=== PATIENT | male | born 1965 ===

== ENCOUNTER 2020-01-25 11:48 | Inpatient (IN) | payer BC, OTHER ==
[2020-01-25] VITALS (13 sets, daily range): BP systolic 85–178; BP diastolic 54–101
[~2020-01-25] VITALS: Ht 180 cm; Wt 85.0 kg
[~2020-01-25 11:48] MED LIST: ATROPINE INJECTION 1 MG/10 ML SYR (ABBOTT) INJ ONE; EPINEPHrine 0.1 MG/ML 10 ML (HOSPIRA) SYR IJ ONE
--- NOTE | 2020-01-25 11:55 | NUR ---
PT ARRIVED PER EMS, PT IS RESP DISTRESS, PT DOES NOT SPEAK NIGERIEN, TRANSLATION LINE USED TO EXPLAIN TO PT THAT HE WAS GOING TO NEED TO BE INTUBATED D/T DECLINING RESP FAILURE. PT IS IN AGREEMENT. 1209 ETOMADATE 20MG IV GIVEN ORDERED 1209 SUCCS 100MG GIVEN IV ORDERED. SAT 94%@15L NRB 1210 PT ENTUBATED W #8 ET TUBE BY Leroy NASSAR. 22CM AT TEETH. TUBE PLACEMENT CHECKES. 1213 PROPAOL 40MG IV PUSH BY Leroy NASSAR 1214 PROPAFOL 50MG IV PUSHED BY Leroy NASSAR 1215 VERSED 5MG IV PUSH GIVEN ORDERED 1216 FENTANYL 100MCG GIVEN ORDERED
[2020-01-25] MEDS ORDERED: proPOfol 200 MG/20 ML (DIPRIVAN) VIAL IV ONE (12:10)
[2020-01-25] MEDS ORDERED: PROPOFOL DRIP (ICU) 100 ML IV ONE ×2 (12:13→14:19)
--- NOTE | 2020-01-25 12:18 | NUR ---
NOTES ON PT CONT 1218 FENTANLY 100MCG GIVEN ORDERED. IV #18 R AC STARTED. ROCC 50MG IV GIVEN 1219 OG 16FR INSERTED 1220 PROPOFOL 60MCG/KG/MIN= 39.6ML/HR STARTED 1228 16FR GOOD CATH INSERTED CL DARYA URINE RETURN 1230 2ND BC COMPLETE 1237 SUCTIONED BY RT 1239 ET TUBE MOVED TO 24@LIP 1234 MEPILEX DRESSINGS APPLIED PER GUIDELINES 1246 DECADRON 10MG IV GIVEN ORDERED 1255 PT TO PRONE POSITION O2 SAT UP TO 98% ON VENT 1256 LABETALOL 20MG IV GIVEN ORDERED 1327 PT STARTING TO MOVE FENTANLY 100MCG GIVEN IV VSS P-105 O2-95%ON VENT-104/72 1350 PT WAKING UP, PT GIVEN 5MG VERSED IV AND 100MCG FENTANLY. PROPOFOL INCREASED TO 70MCG/KG/MIN FOR SEDATION. 1402 B/P 80/54-101 SAT 92% ON VENT. NEW ORDERS RECIEVED DECREASE PROPOFOL TO 60MCG/KG/MIN. IV FLUIDS BOLUS 500CC 1406 B/P 91/61-101-92% 1423 PT STARTING TO MOVE AROUND, VERSED 5MG IV GIVEN, FENTANLY 100MCG GIVEN IV P-100 SAT 94% B/P 90/64, MEDICAL RECORDS ASSISTANT HERE TO TRANSFER PT 1430 PT SATS DECREASING 75% 1436 PT CONT TO MOVE, ROCC 50MG GIVEN IV 1437 DR KIM NOTIFIED OF PT DECLINING STATUS, DR SAUNDERS AT SIDE. VERSED 5MG IV GIVEN 1438 PT MOVED TO SUPINE BY STAFF 1439 NO PULSE CPR STARTED, ATROPINE 1 AMP AND EPI 1 AMP GIVEN IV 1441 PULSE CHECK NO PULSE PEA. EPI 1 AMP, ATROPINE 1 AMP GIVEN IV 1443 PULSE CHECK ROSC HR-160 SAT 96% BP 118/116 1450 HR 163 SAT 96% B/P 182/116 1453 PT TO ICU PER BED, VS ABOVE. GOOD INTACT, PT BAGGED BY RT, PROPOFOL CONT AT 60MCG/KG/MIN. IV INTACT BILATERALLY. OG IN PLACE.
[2020-01-25] MEDS ORDERED: PROPOFOL DRIP (ICU) 100 ML IV SCH (12:30)
[2020-01-25 12:36] LABS: ABG BASE EXCESS -1.7 MMOL/L (-2.5-2.5); ABG OXYGEN SATURATION 91 % (94-100); ABG PCO2 30 MMHG (35-45); ABG PH 7.47 (7.37-7.43); ABG PO2 69 MMHG (79-93); ABG TCO2 22.2 MMOL/L (21.0-31.0); ALLENS TEST YES-POS; INSPIRED O2 15; PATIENT TEMP 99.6; VENTILATOR NO
--- NOTE | 2020-01-25 12:37 | ED Dyspnea ---
General Stated Complaint: SOA Source of Information: Patient, EMS Exam Limitations: No Limitations History of Present Illness Date Seen by Provider: Jan 25, 2020 Time Seen by Provider: 11:50 Initial Comments to ER by EMS from home with reports of shortness of breath. He is employed at [employer]. He was tested positive for COVID last Wednesday (today is ).he became short of breath about 2-3 days ago. Former smoker but quit 3 years ago. He smoked about 2-3 cigarettes per day. Former alcohol use but quit in 1994. Does not have primary care provider. Takes no medications. Has no allergies. Has no surgical history. Translation line was used to obtain this information. Timing/Duration: 1 Week Severity: Moderate Activities at Onset: None Modifying Factors: Improves With Coughing Allergies and Home Medications Allergies Coded Allergies: No Known Drug Allergies (Unverified , 01/25/20) Patient Home Medication List Home Medication List Reviewed: Yes Review of Systems Review of Systems Constitutional: see HPI EENTM: see HPI Respiratory: see HPI, cough, short of breath Cardiovascular: no symptoms reported Genitourinary: no symptoms reported Musculoskeletal: no symptoms reported Skin: no symptoms reported Psychiatric/Neurological: No Symptoms Reported Endocrine: No Symptoms Reported Physical Exam Vital Signs Vital Signs - First Documented 01/25/20 12:20 Pulse 113 B/P (MAP) 141/107 Capillary Refill : Height, Weight, BMI Height: '" Weight: lbs. oz. kg; BMI Method: General Appearance: WD/WN, Severe Distress, Other (tachypneic with respiratory rate of 40-60. Oxygen saturation of 87-91% on 15 L nonrebreather) HEENT: PERRL/EOMI, TMs Normal Respiratory: Decreased Breath Sounds, Respiratory Distress Cardiovascular: Normal Peripheral Pulses, Tachycardia Gastrointestinal: Normal Bowel Sounds, Non Tender, Soft Extremity: Normal Capillary Refill, Normal Inspection Neurologic/Psychiatric: Alert, Oriented x3 Skin: Normal Color, Warm/Dry Focused Exam Lactate Level 01/25/20 12:45: Lactic Acid Level 1.28 Lactic Acid Level Laboratory Tests Test 01/25/20 12:45 Lactic Acid Level 1.28 MMOL/L (0.50-2.00) Procedures/Interventions Date of ETT Placement: Jan 25, 2020 Time of ETT Placement: 12:10 Intubation Method: orotracheal Tube Size: 8 Medications: Etomidate, Succinylcholine Positive End Tide CO2: Yes Breath Sounds after Intubation: bilateral-equal Intubation Complications: no complications Post Intubation Xray: Yes Progress/Results/Core Measures Results/Orders Lab Results Laboratory Tests Test 01/25/20 12:00 01/25/20 12:28 01/25/20 12:45 Range/Units White Blood Count 15.3 H 4.3-11.0 10^3/uL Red Blood Count 4.49 4.35-5.85 10^6/uL Hemoglobin 13.6 13.3-17.7 G/DL Hematocrit 40 40-54 % Mean Corpuscular Volume 89 80-99 FL Mean Corpuscular Hemoglobin 30 25-34 PG Mean Corpuscular Hemoglobin Concent 34 32-36 G/DL Red Cell Distribution Width 13.4 10.0-14.5 % Platelet Count 331 130-400 10^3/uL Mean Platelet Volume 10.2 7.4-10.4 FL Neutrophils (%) (Auto) 86 H 42-75 % Lymphocytes (%) (Auto) 7 L 12-44 % Monocytes (%) (Auto) 6 0-12 % Eosinophils (%) (Auto) 1 0-10 % Basophils (%) (Auto) 0 0-10 % Neutrophils # (Auto) 13.1 H 1.8-7.8 X 10^3 Lymphocytes # (Auto) 1.1 1.0-4.0 X 10^3 Monocytes # (Auto) 0.9 0.0-1.0 X 10^3 Eosinophils # (Auto) 0.1 0.0-0.3 10^3/uL Basophils # (Auto) 0.0 0.0-0.1 10^3/uL Neutrophils % (Manual) 93 % Lymphocytes % (Manual) 4 % Monocytes % (Manual) 3 % Eosinophils % (Manual) 0 % Basophils % (Manual) 0 % Band Neutrophils 0 % Blood Morphology Comment NORMAL Prothrombin Time 16.6 H 12.2-14.7 SEC INR Comment 1.3 0.8-1.4 Activated Partial Thromboplast Time 34 24-35 SEC Blood Gas Puncture Site RT RAD Blood Gas Patient Temperature 99.6 Arterial Blood pH 7.47 H 7.37-7.43 Arterial Blood Partial Pressure CO2 30 L 35-45 MMHG Arterial Blood Partial Pressure O2 69 L 79-93 MMHG Arterial Blood HCO3 21 L 23-27 MMOL/L Arterial Blood Total CO2 22.2 21.0-31.0 MMOL/L Arterial Blood Oxygen Saturation 91 L 94-100 % Arterial Blood Base Excess -1.7 -2.5-2.5 MMOL/L Angelo Test YES-POS Blood Gas Ventilator Setting NO Blood Gas Inspired Oxygen 15 Sodium Level 138 135-145 MMOL/L Potassium Level 4.0 3.6-5.0 MMOL/L Chloride Level 105 98-107 MMOL/L Carbon Dioxide Level 21 21-32 MMOL/L Anion Gap 12 5-14 MMOL/L Blood Urea Nitrogen 19 H 7-18 MG/DL Creatinine 0.77 0.60-1.30 MG/DL Estimat Glomerular Filtration Rate > 60 BUN/Creatinine Ratio 25 Glucose Level 122 H 70-105 MG/DL Calcium Level 8.5 8.5-10.1 MG/DL Corrected Calcium 9.3 8.5-10.1 MG/DL Total Bilirubin 0.7 0.1-1.0 MG/DL Aspartate Amino Transf (AST/SGOT) 32 5-34 U/L Alanine Aminotransferase (ALT/SGPT) 30 0-55 U/L Alkaline Phosphatase 101 40-136 U/L Total Protein 6.9 6.4-8.2 GM/DL Albumin 3.0 L 3.2-4.5 GM/DL Triglycerides Level 129 <150 MG/DL Urine Color YELLOW Urine Clarity CLEAR Urine pH 7.0 5-9 Urine Specific [place] 1.025 H 1.016-1.022 Urine Protein 3+ H NEGATIVE Urine Glucose (UA) NEGATIVE NEGATIVE Urine Ketones 1+ H NEGATIVE Urine Nitrite NEGATIVE NEGATIVE Urine Bilirubin NEGATIVE NEGATIVE Urine Urobilinogen >=8.0 < = 1.0 MG/DL Urine Leukocyte Esterase NEGATIVE NEGATIVE Urine RBC (Auto) 2+ H NEGATIVE Urine RBC 2-5 H /HPF Urine WBC NONE /HPF Urine Squamous Epithelial Cells RARE /HPF Urine Crystals NONE /LPF Urine Bacteria NEGATIVE /HPF Urine Casts NONE /LPF Urine Mucus NEGATIVE /LPF Urine Culture Indicated NO Lactic Acid Level 1.28 0.50-2.00 MMOL/L C-Reactive Protein High Sensitivity 31.52 H 0.00-0.50 MG/DL My Orders Orders - SHANEKA MEDRANO APRN Cbc With Automated Diff (01/25/20 12:24) Comprehensive Metabolic Panel (01/25/20 12:24) Blood Culture (01/25/20 12:24) Sputum Culture (01/25/20 12:24) Urinalysis (01/25/20 12:24) Urine Culture (01/25/20 12:24) Protime With Inr (01/25/20 12:24) Partial Thromboplastin Time (01/25/20 12:24) Chest 1 View, Ap/Pa Only (01/25/20 12:24) Ed Iv/Invasive Line Start (01/25/20 12:24) Ed Iv/Invasive Line Start (01/25/20 12:24) Vital Signs Adult Sepsis Patie Q15M (01/25/20 12:24) O2 (01/25/20 12:24) Remove Rings In Anticipation O (01/25/20 12:24) Lactic Acid Analyzer (01/25/20 12:24) Arterial Blood Gas (01/25/20 12:24) Propofol Drip (Icu) (Diprivan Drip (Icu) (01/25/20 12:30) Triglycerides (01/25/20 12:24) Labetalol Injection (Normodyne Injection (01/25/20 12:45) Dexamethasone Injection (Decadron Inject (01/25/20 12:45) Piperacillin Sodium/Tazobactam (Zosyn Vi (01/25/20 12:45) Hs C Reactive Protein (01/25/20 12:44) Labetalol Injection (Normodyne Injection (01/25/20 12:42) Dexamethasone Injection (Decadron Inject (01/25/20 12:42) Manual Differential (01/25/20 12:00) Ns Iv 1000 Ml (Sodium Chloride 0.9%) (01/25/20 13:30) Medications Given in ED Current Medications Medications Dose Ordered Sig/Luann Route Start Time Stop Time Status Last Admin Dose Admin Dexamethasone Sodium Phosphate 10 mg ONCE ONCE IV 01/25/20 12:45 01/25/20 12:46 DC 01/25/20 12:46 10 MG Labetalol HCl 20 mg ONCE ONCE IV 01/25/20 12:45 01/25/20 12:46 DC 01/25/20 12:56 20 MG Piperacillin Sod/ Tazobactam Sod 4.5 gm/Sodium Chloride 100 ml @ 200 mls/hr ONCE ONCE IV 01/25/20 12:45 01/25/20 13:14 DC 01/25/20 13:10 200 MLS/HR Propofol 200 mg STK-MED ONCE IV 01/25/20 12:10 01/25/20 12:12 DC 01/25/20 12:13 40 MG Vital Signs/I&O 01/25/20 12:20 Pulse 113 B/P (MAP) 141/107 Critical Care Note Critical Care Start Time: 11:55 Stop Time: 12:42 Departure Communication (Admissions) Time/Spoke to Admitting Phy: 12:42 1239-he was intubated with a size 8 endotracheal tube initially at 22 cm at the teeth. After auscultation and temporarily on the ventilator as wasn't felt to be deep enough, we advanced to 24cm the lips and reinflated the balloon. Also, the advancement to 24 cm at the lips occurred after the initial chest x-ray.initial ventilator settings are tidal volume of 500 rate of 16 peep of 10 and 70% FiO2 and his SPO2 is only about 86-87%. As such we are placing Mepilex gizzard skin remover his anterior surface in preparation to prone him. Nasogastric tube has been inserted. He's been given additional dosages of propofol, fentanyl and Versed and 1 dose of rocuronium. 1256-after proning him his oxygen saturation increased from 86% to 98% without change ventilator settings 1309- Spoke with Dr. Renteria and Dr. Bae, will admit 1516-patient developed bradycardia with a rate down to the 30s as well as likely toxemia and hypotension. Was given 2 doses of epinephrine 2 doses of atropine and CPR for 4 minutes. There was no V. tach or V. fib or defibrillation. He regained pulse tachycardic at about 150 narrow complex. Blood pressure in the 80s. Transferred up to ICU, Dr. Renteria at bedside and will place a central line. Impression Primary Impression: Respiratory failure Additional Impression: covid 19 Disposition: 09 ADMITTED INPATIENT Condition: Critical Admissions Decision to Admit Reason: Admit from ER (General) Decision to Admit/Date: Jan 25, 2020 Time/Decision to Admit Time: 12:42 SHANEKA MEDRANO APRN Jan 25, 2020 12:37
[2020-01-25 12:41] LABS: INR 1.3 (0.8-1.4); PROTHROMBIN TIME PATIENT 16.6 SEC (12.2-14.7)
[2020-01-25 12:42] LABS: CHLORIDE 105 MMOL/L (98-107); SODIUM 138 MMOL/L (135-145)
[2020-01-25] MEDS ORDERED: LABETALOL HCL 20 MG/4 ML VIAL ONE (12:42)
[2020-01-25 12:43] LABS: CALCIUM 8.5 MG/DL (8.5-10.1)
[2020-01-25 12:44] LABS: GLUCOSE 122 MG/DL (70-105); TOTAL PROTEIN 6.9 GM/DL (6.4-8.2); TRIGLYCERIDES 129 MG/DL (<150)
[2020-01-25 12:45] LABS: CARBON DIOXIDE 21 MMOL/L (21-32)
[2020-01-25] MEDS ORDERED: PIPERACILLIN SODIUM/TAZOBACTAM 4.5 GM in NS (IVPB) 100 ML IV ONE (12:45)
[2020-01-25] MEDS ORDERED: LABETALOL HCL 20 MG/4 ML VIAL IV ONE (12:45)
[2020-01-25 12:46] LABS: BILIRUBIN,TOTAL 0.7 MG/DL (0.1-1.0)
[2020-01-25 12:47] LABS: ALKALINE PHOSPHATASE 101 U/L (40-136)
[2020-01-25 12:48] LABS: CREATININE SERUM 0.77 MG/DL (0.60-1.30); GFR ESTIMATED > 60
[2020-01-25 12:49] LABS: BASOPHILS % (AUTO) 0 % (0-10); BUN/CREATININE RATIO 25; EOSINOPHILS # (AUTO) 0.1 10^3/uL (0.0-0.3); EOSINOPHILS % (AUTO) 1 % (0-10); HEMATOCRIT 40 % (40-54); HEMOGLOBIN 13.6 G/DL (13.3-17.7); LYMPHOCYTES # (AUTO) 1.1 X 10^3 (1.0-4.0); LYMPHOCYTES % (AUTO) 7 % (12-44); MEAN CORPUSCULAR HEMOGLOBIN 30 PG (25-34); MEAN CORPUSCULAR HGB CONC 34 G/DL (32-36); MEAN CORPUSCULAR VOLUME 89 FL (80-99); MEAN PLATELET VOLUME 10.2 FL (7.4-10.4); MONOCYTES # (AUTO) 0.9 X 10^3 (0.0-1.0); MONOCYTES % (AUTO) 6 % (0-12); NEUTROPHILS # (AUTO) 13.1 X 10^3 (1.8-7.8); NEUTROPHILS % (AUTO) 86 % (42-75); PLATELET COUNT 331 10^3/uL (130-400); RED CELL DISTRIBUTION WIDTH 13.4 % (10.0-14.5); WHITE BLOOD COUNT 15.3 10^3/uL (4.3-11.0)
[2020-01-25 12:51] LABS: ALANINE AMINOTRANSFERASE 30 U/L (0-55)
[2020-01-25 12:55] LABS: BILIRUBIN,URINE NEGATIVE (NEGATIVE); CLARITY,URINE CLEAR; COLOR,URINE YELLOW; GLUCOSE, URINE (UA) NEGATIVE (NEGATIVE); KETONES,URINE 1+ (NEGATIVE); LEUKOCYTE ESTERASE ,URINE NEGATIVE (NEGATIVE); NITRITE,URINE NEGATIVE (NEGATIVE); PROTEIN,URINE 3+ (NEGATIVE)
[2020-01-25 13:02] LABS: BACTERIA,URINE NEGATIVE /HPF; SQUAMOUS EPITHELIAL CELL,UR RARE /HPF
--- NOTE | 2020-01-25 13:05 | Diagnostic Imaging Report ---
INDICATION: Respiratory distress. FINDINGS: 2 frontal radiographs of the chest are performed. An ET tube is just above the thoracic inlet. It is about 9 cm above the chele and about 4 cm above its optimal mid thoracic tracheal positioning. There are severe 5 lobe airspace infiltrates and an OG catheter in the stomach. IMPRESSION: The ET tube is short just approaching the thoracic inlet about 4 cm from optimal positioning with severe 5 lobe airspace disease and an OG catheter in the stomach. Dictated by: Dictated on workstation # [id number]
[2020-01-25 13:08] LABS: BAND NEUTROPHILS 0 %; BASOPHILS % (MANUAL) 0 %; EOSINOPHILS % (MANUAL) 0 %; LYMPHOCYTES % (MANUAL) 4 %; MONOCYTES % (MANUAL) 3 %; NEUTROPHILS % (MANUAL) 93 %; RBC MORPH NORMAL
[2020-01-25] MEDS ORDERED: MIDAZOLAM 5 MG/5 ML (VERSED) VIAL ONE (14:18)
--- OUTSIDE RECORDS SUMMARY | 2020-01-25 14:19 | XMS REPORT | Continuity of Care Document ---
Author Organization Unknown Address Unknown Phone Unavailable Allergies There is no data. Medications There is no data. Problems There is no data. Procedures There is no data. Results There is no data. Encounters ACCT No. Visit Date/Time Discharge Status Pt. Type Provider Facility Loc./Unit Complaint [id number] 01/13/2020 12:00:00 01/13/2020 23:59: 59 CLS Outpatient [facility]
[2020-01-25] MEDS ORDERED: fentaNYL INJECTION 100 MCG/2 ML AMP ONE (14:20)
--- NOTE | 2020-01-25 14:23 | NUR ---
1159 B/P 178/101 HR 101 SAT 92% 15L NRB 1219 147/101 113 94 VENT 1229 163/115 133 86 RT DEEP SUCTIONED 1239 181/118 519 61 4395 104/72 539 50 5638 106/70 065 05 3329 108/62 507 19 5527 115/69 399 55 6272 80/54 754 73 7186 82/51 651 60 4969 91/61 742 00 8851 90/64 100 94 SWITCHED TO ICU MONITOR 1450 182/116 483 56 4711 PT TAKEN TO ICU BY ICU STAFF
[2020-01-25] MEDS ORDERED: MIDAZOLAM 5 MG/5 ML (VERSED) VIAL IJ ONE ×2 (14:32→16:23)
[2020-01-25] MEDS ORDERED: ROCURONIUM 10 MG/ML 5 ML SYRINGE IV ONE ×2 (14:32→16:23)
[2020-01-25] MEDS ORDERED: SUCCINYLCHOLINE INJ 100 MG/5 ML SYR INJ ONE (14:32)
[2020-01-25] MEDS ORDERED: fentaNYL INJECTION 100 MCG/2 ML AMP INJ ONE ×2 (14:32→16:23)
[2020-01-25] MEDS ORDERED: ETOMIDATE IV SOLN 20 MG/10 ML VIAL IV ONE (14:32)
[2020-01-25] MEDS ORDERED: NOREPINEPHRINE 4 MG/250 ML 250 ML IV ONE (14:56)
[2020-01-25] MEDS ORDERED: DexMEDEtomidine 250 ML DRIP 250 ML IV ONE (14:57)
[2020-01-25] MEDS: PROPOFOL DRIP (ICU) 100 ML IV SCH ×4 (15:00→22:59)
[2020-01-25] MEDS: NS IV 1000 ML 1,000 ML IV SCH ×4 (15:00→23:00)
--- NOTE | 2020-01-25 15:02 | Diagnostic Imaging Report ---
INDICATION: Respiratory failure. Portable chest at 02:46 p.m. FINDINGS: There is an ET tube projecting over the trachea. NG tube tip is near the thoracic inlet. There are diffuse alveolar infiltrates in the lungs. There are no effusions or pneumothoraces. IMPRESSION: Severe diffuse pulmonary infiltrates. ET tube projects over the trachea. NG tube tip appears to be at the thoracic inlet. Dictated by: Dictated on workstation # [id number]
[2020-01-25] MEDS ORDERED: LACTATED RINGERS 1,000 ML IV ONE (15:14)
[2020-01-25] MEDS: NOREPINEPHRINE 4 MG/250 ML 250 ML IV SCH ×2 (15:18→21:38)
[2020-01-25] MEDS: LACTATED RINGERS 1,000 ML IV SCH ×2 (15:20→21:32)
[2020-01-25] MEDS: DexMEDEtomidine 250 ML DRIP 250 ML IV SCH (15:21)
[2020-01-25 15:23] LABS: ABG OXYGEN SATURATION 95 % (94-100); ABG PO2 114 MMHG (79-93); ABG TCO2 24.3 MMOL/L (21.0-31.0)
[2020-01-25 15:26] LABS: ALLENS TEST YES-POS; INSPIRED O2 70%; PATIENT TEMP 37.1; VENTILATOR YES
[2020-01-25 15:29] LABS: ABG PCO2 71 MMHG (35-45); ABG PH 7.12 (7.37-7.43)
[2020-01-25] MEDS ORDERED: CATHETER FLUSH 10 ML SYR IV PRN (15:30)
[2020-01-25] MEDS: fentaNYL INJECTION 1,250 MCG in NS (IVPB) 250 ML IV SCH (15:39)
--- NOTE | 2020-01-25 15:41 | Pulmonary Consultation ---
History of Present Illness History of Present Illness Date Seen by Provider: Jan 25, 2020 Time Seen by Provider: 15:35 Date of Admission History of Present Illness 54yo who works at [employer] and is known COVID positive from Wednesday testing presented to ED secondary to worsening SOB over the last 3 days. He quit smoking 3 yrs ago. Pt continued to decline while in the ED and was intubated. After intubation pt became hypotensive and became bradycardic. He received epi and atropine and 1 round of chest compressions. He is now intubated and sedated in the ICU. He is still hypotesive on Levophed. He is getting another unit of LR. . Allergies and Home Medications Allergies Coded Allergies: No Known Drug Allergies (Unverified , 01/25/20) Review of Systems Time Seen by Provider: 16:02 Sepsis Event Evaluation Height, Weight, BMI Height: '" Weight: lbs. oz. kg; BMI Method: Exam Exam Vital Signs Date Time Temp Pulse Resp B/P (MAP) Pulse Ox O2 Delivery O2 Flow Rate FiO2 01/25/20 15:21 111 77/55 01/25/20 15:18 111 77/55 01/25/20 15:00 111 85/61 01/25/20 12:20 113 141/107 Height & Weight Height: '" Weight: lbs. oz. kg; BMI Method: General Appearance: WD/WN, Severe Distress, Other (tachypneic with respiratory rate of 40-60. Oxygen saturation of 87-91% on 15 L nonrebreather) HEENT: PERRL/EOMI, TMs Normal Respiratory: Decreased Breath Sounds, Respiratory Distress Cardiovascular: Normal Peripheral Pulses, Tachycardia Capillary Refill: Less Than 3 Seconds Gastrointestinal: normal bowel sounds, soft Extremity: Normal Capillary Refill, Normal Inspection Neurologic/Psychiatric: Other (sedated on vent) Skin: Normal Color, Warm/Dry Results Lab Laboratory Tests 01/25/20 12:00 Assessment/Plan Assessment/Plan Acute respiratory failure with ARDS -Change vent to 26/450/12 and continue to titrate Fi02 down. If unable to keep Sp02 <60% will increase PEEP. -Repeat ABG in 1 hr after vent changes -Prone x 14-16hours per day as tolerated -Conservative fluid management secondary to ARDS -Start Remdesivir. -I discussed with EICU and they agree with starting Remdesivir ADILIA. -Monitor liver function -Decadron -Add Zosyn secondary to possible aspiration/secondary infection -Lynne cultures -Repeat Labs including LA COVID + Hypotension -IVF with LR at 150 -Levophed gtt STEFANI FORDE DO Jan 25, 2020 15:41
[2020-01-25 15:54] LABS: AMPHETAMINE SCREEN, URINE NEGATIVE (NEGATIVE); BARBITURATE SCREEN URINE NEGATIVE (NEGATIVE); BENZODIAZEPINES SCREEN URINE NEGATIVE (NEGATIVE); CANNABINOID SCREEN, URINE NEGATIVE (NEGATIVE); COCAINE SCREEN URINE NEGATIVE (NEGATIVE); METHADONE STAT NEGATIVE (NEGATIVE); METHAMPHETAMINE SCREEN URINE S NEGATIVE (NEGATIVE); OPIATE SCREEN URINE NEGATIVE (NEGATIVE); OXYCODONE STAT NEGATIVE (NEGATIVE); PROPOXYPHENE STAT NEGATIVE (NEGATIVE); TRICYCLIC ANTIDEPRESSANTS SCRE NEGATIVE (NEGATIVE)
[2020-01-25] MEDS ORDERED: REMDESIVIR INJ (FREE STOCK) 200 MG in NS (IVPB) 210 ML IV NR (16:00)
[2020-01-25] MEDS ORDERED: PIPERACILLIN/TAZO 4.5 GM/NS 100 ML IV NR ×2 (16:00)
[2020-01-25 16:14] LABS: BASOPHILS % (AUTO) 0 % (0-10); EOSINOPHILS % (AUTO) 0 % (0-10); HEMATOCRIT 36 % (40-54); HEMOGLOBIN 11.9 G/DL (13.3-17.7); LYMPHOCYTES # (AUTO) 0.6 X 10^3 (1.0-4.0); LYMPHOCYTES % (AUTO) 3 % (12-44); MEAN CORPUSCULAR HEMOGLOBIN 31 PG (25-34); MEAN CORPUSCULAR HGB CONC 33 G/DL (32-36); MEAN CORPUSCULAR VOLUME 92 FL (80-99); MEAN PLATELET VOLUME 9.8 FL (7.4-10.4); MONOCYTES # (AUTO) 0.5 X 10^3 (0.0-1.0); MONOCYTES % (AUTO) 3 % (0-12); NEUTROPHILS # (AUTO) 18.9 X 10^3 (1.8-7.8); NEUTROPHILS % (AUTO) 94 % (42-75); PLATELET COUNT 308 10^3/uL (130-400); RED CELL DISTRIBUTION WIDTH 13.3 % (10.0-14.5); WHITE BLOOD COUNT 20.1 10^3/uL (4.3-11.0)
[2020-01-25] MEDS ORDERED: EPINEPHrine 0.1 MG/ML 10 ML (HOSPIRA) SYR IJ ONE (16:23)
[2020-01-25] MEDS ORDERED: ATROPINE 1.2 MG/3 ML (0.4 MG/ML) SYR INJ ONE (16:23)
[2020-01-25 16:30] LABS: ALBUMIN 2.6 GM/DL (3.2-4.5); CHLORIDE 107 MMOL/L (98-107); POTASSIUM 4.6 MMOL/L (3.6-5.0); SODIUM 138 MMOL/L (135-145)
[2020-01-25 16:31] LABS: CALCIUM 7.5 MG/DL (8.5-10.1)
--- NOTE | 2020-01-25 16:31 | Anesthesia-Procedure Note ---
Procedures/Interventions Procedure Start/Stop/Diagnosis Date of Procedure: Jan 25, 2020 Start Time: 16:00 Referring Physician: Myra Preprocedural Diagnosis: covid/ ARF Brief History art line placed x 1 attempt with ultrasound guidance of catheter advancement Stop Time: 16:15 Arterial Line Arterial Line Catheter: 20G Type: Radial Location: Right Procedure: prepped, draped in sterile fashion, good wave-form was obtained, patient tolerated procedure well, no immediate complications, post procedure area cleaned, post procedure dressing applied MISA VALENTINE CRNA Jan 25, 2020 16:31
[2020-01-25 16:33] LABS: GLUCOSE 195 MG/DL (70-105); TOTAL PROTEIN 5.7 GM/DL (6.4-8.2)
[2020-01-25 16:33] LABS: ABG BASE EXCESS -3.8 MMOL/L (-2.5-2.5); ABG OXYGEN SATURATION 84 % (94-100); ABG PCO2 67 MMHG (35-45); ABG PO2 70 MMHG (79-93); ABG TCO2 25.8 MMOL/L (21.0-31.0); ALLENS TEST YES-POS; INSPIRED O2 40; PATIENT TEMP 36.4; VENTILATOR YES
[2020-01-25 16:34] LABS: BILIRUBIN,TOTAL 1.2 MG/DL (0.1-1.0); CARBON DIOXIDE 22 MMOL/L (21-32)
[2020-01-25 16:35] LABS: ABG PH 7.17 (7.37-7.43)
[2020-01-25 16:36] LABS: ALKALINE PHOSPHATASE 90 U/L (40-136); CREATININE SERUM 1.04 MG/DL (0.60-1.30); GFR ESTIMATED > 60; PHOSPHORUS 6.4 MG/DL (2.3-4.7)
[2020-01-25 16:37] LABS: BUN/CREATININE RATIO 21
[2020-01-25 16:39] LABS: ALANINE AMINOTRANSFERASE 135 U/L (0-55); MAGNESIUM 2.2 MG/DL (1.6-2.4)
[2020-01-25 16:54] LABS: BAND NEUTROPHILS 0 %; BASOPHILS % (MANUAL) 0 %; EOSINOPHILS % (MANUAL) 0 %; LYMPHOCYTES % (MANUAL) 4 %; MONOCYTES % (MANUAL) 2 %; NEUTROPHILS % (MANUAL) 94 %; RBC MORPH NORMAL
--- NOTE | 2020-01-25 17:26 | NUR ---
RT NOTIFIED OF VENT CHANGES NEEDED.
--- NOTE | 2020-01-25 17:43 | NUR ---
SPOKE WITH PT ANTOINETTE CAMARGO AT [phone] AND UPDATED ON PATIENT CONDITION. ADVISED OF POLICIES REGARDING PATIENT PASSWORD AND PHONE CALLS, USE OF FACETIME AND NO VISITORS ALLOWED. HE VOICED UNDERSTANDING.
--- NOTE | 2020-01-25 18:13 | NUR ---
PT HAVING INCREASE IN NUMBER OF PVC'S, E-ICU NOTIFIED WITH NEW ORDER OF INCREASING RR TO 32 AND DO NOT REPEAT ABG NOW, REPEAT AT 1999.
[2020-01-25] MEDS: ENOXAPARIN 100 MG/1 ML (LOVENOX) SYR SC SCH (18:25)
[2020-01-25] MEDS: PIPERACILLIN/TAZOBACTAM (BULK) 4.5 GM in NS (IVPB) 100 ML IV SCH (20:06)
[2020-01-25 20:45] LABS: ABG BASE EXCESS -3.3 MMOL/L (-2.5-2.5); ABG OXYGEN SATURATION 88 % (94-100); ABG PCO2 42 MMHG (35-45); ABG PO2 61 MMHG (79-93); ABG TCO2 23.3 MMOL/L (21.0-31.0)
[2020-01-25 20:47] LABS: ABG PH 7.33 (7.37-7.43); ALLENS TEST ART LINE; INSPIRED O2 40%; PATIENT TEMP 35.7; VENTILATOR YES
[2020-01-25] MEDS: [UNRECOGNIZED DRUG - OTHER] IV SCH (21:33)
[2020-01-25] MEDS ORDERED: PIPERACILLIN/TAZOBACTAM (BULK) 4.5 GM in NS (IVPB) 100 ML IV SCH (22:00)
[2020-01-26] VITALS (29 sets, daily range): BP systolic 92–136; BP diastolic 52–85
[2020-01-26] MEDS: PROPOFOL DRIP (ICU) 100 ML IV SCH ×7 (01:46→23:19)
[2020-01-26] MEDS: PIPERACILLIN/TAZOBACTAM (BULK) 4.5 GM in NS (IVPB) 100 ML IV SCH ×3 (04:01→20:15)
[2020-01-26] MEDS: LACTATED RINGERS 1,000 ML IV SCH ×4 (04:03→22:07)
[2020-01-26 04:10] LABS: ABG OXYGEN SATURATION 94 % (94-100); ABG PCO2 45 MMHG (35-45); ABG PO2 81 MMHG (79-93); ABG TCO2 24.7 MMOL/L (21.0-31.0)
[2020-01-26 04:11] LABS: BASOPHILS % (AUTO) 0 % (0-10); EOSINOPHILS % (AUTO) 0 % (0-10); HEMATOCRIT 35 % (40-54); HEMOGLOBIN 11.3 G/DL (13.3-17.7); LYMPHOCYTES # (AUTO) 0.8 X 10^3 (1.0-4.0); LYMPHOCYTES % (AUTO) 7 % (12-44); MEAN CORPUSCULAR HEMOGLOBIN 30 PG (25-34); MEAN CORPUSCULAR HGB CONC 33 G/DL (32-36); MEAN CORPUSCULAR VOLUME 92 FL (80-99); MEAN PLATELET VOLUME 9.9 FL (7.4-10.4); MONOCYTES # (AUTO) 0.6 X 10^3 (0.0-1.0); MONOCYTES % (AUTO) 5 % (0-12); NEUTROPHILS # (AUTO) 10.5 X 10^3 (1.8-7.8); NEUTROPHILS % (AUTO) 88 % (42-75); PLATELET COUNT 284 10^3/uL (130-400); RED CELL DISTRIBUTION WIDTH 13.5 % (10.0-14.5); WHITE BLOOD COUNT 11.9 10^3/uL (4.3-11.0)
[2020-01-26 04:12] LABS: ABG PH 7.33 (7.37-7.43); ALLENS TEST ART LINE
[2020-01-26 04:13] LABS: INSPIRED O2 60%; VENTILATOR YES
[2020-01-26 04:34] LABS: ALANINE AMINOTRANSFERASE 122 U/L (0-55); ALBUMIN 2.5 GM/DL (3.2-4.5); ALKALINE PHOSPHATASE 87 U/L (40-136); BILIRUBIN,TOTAL 0.5 MG/DL (0.1-1.0); BUN/CREATININE RATIO 24; CALCIUM 7.9 MG/DL (8.5-10.1); CARBON DIOXIDE 20 MMOL/L (21-32); CHLORIDE 109 MMOL/L (98-107); CREATININE SERUM 0.99 MG/DL (0.60-1.30); GFR ESTIMATED > 60; GLUCOSE 154 MG/DL (70-105); MAGNESIUM 2.3 MG/DL (1.6-2.4); PHOSPHORUS 4.5 MG/DL (2.3-4.7); POTASSIUM 4.7 MMOL/L (3.6-5.0); SODIUM 140 MMOL/L (135-145); TOTAL PROTEIN 5.7 GM/DL (6.4-8.2)
[2020-01-26] MEDS: NOREPINEPHRINE 4 MG/250 ML 250 ML IV SCH ×4 (04:35→23:47)
--- NOTE | 2020-01-26 04:59 | Pulmonary Progress Note ---
Subjective Time Seen by a Provider: 04:55 Subjective/Events-last exam Pt is sedated on vent. Sepsis Event Evaluation Height, Weight, BMI Height: '" Weight: lbs. oz. kg; 30.00 BMI Method: Focused Exam Lactate Level 01/25/20 12:45: Lactic Acid Level 1.28 01/25/20 15:57: Lactic Acid Level 1.88 Exam Exam Vital Signs Date Time Temp Pulse Resp B/P (MAP) Pulse Ox O2 Delivery O2 Flow Rate FiO2 01/26/20 04:00 Mechanical Ventilator 60 01/26/20 03:48 36.0 01/26/20 03:22 55 32 99 60 01/26/20 02:00 58 30 107/69 (82) 98 Mechanical Ventilator 60.00 01/26/20 01:46 59 118/75 01/26/20 01:44 59 118/75 01/26/20 01:00 61 01/26/20 01:00 62 31 116/74 (88) 99 Mechanical Ventilator 60.00 01/26/20 00:30 35.8 01/26/20 00:27 62 119/76 01/26/20 00:00 63 18 121/76 (91) 97 Mechanical Ventilator 60.00 01/26/20 00:00 Mechanical Ventilator 60 01/25/20 23:02 35.7 01/25/20 23:00 64 18 125/80 (95) 97 Mechanical Ventilator 60.00 01/25/20 22:59 64 119/82 01/25/20 22:57 64 119/82 01/25/20 22:22 66 32 98 60 01/25/20 22:00 67 32 126/83 (97) 98 Mechanical Ventilator 60.00 01/25/20 21:38 67 119/81 01/25/20 21:36 67 119/81 01/25/20 21:32 Mechanical Ventilator 60.00 01/25/20 21:00 69 31 118/79 (92) 94 Mechanical Ventilator 40.00 01/25/20 20:17 35.7 01/25/20 20:13 71 142/86 01/25/20 20:13 72 142/86 01/25/20 20:00 74 32 135/86 (102) 100 Mechanical Ventilator 40.00 01/25/20 20:00 Mechanical Ventilator 40 01/25/20 19:29 74 27 100 40 01/25/20 19:00 76 34 122/77 (92) 100 Mechanical Ventilator 40.00 01/25/20 19:00 80 01/25/20 18:00 84 25 120/70 (87) 100 Mechanical Ventilator 40.00 01/25/20 17:07 88 118/64 01/25/20 17:00 90 20 101/64 (76) 100 Mechanical Ventilator 40.00 01/25/20 16:57 92 Non Rebreather 15.00 01/25/20 16:39 Mechanical Ventilator 40.00 01/25/20 16:36 85 26 99 50 01/25/20 16:30 99 Mechanical Ventilator 40 01/25/20 16:30 36.6 01/25/20 16:00 105 26 92/59 (70) 99 Mechanical Ventilator 50.00 01/25/20 15:41 108 01/25/20 15:21 111 77/55 01/25/20 15:18 111 77/55 01/25/20 15:00 36.7 01/25/20 15:00 105 25 88/54 (65) 100 Mechanical Ventilator 50.00 01/25/20 15:00 111 85/61 01/25/20 14:54 100 Mechanical Ventilator 100 01/25/20 14:53 132 20 85/58 (67) 99 Mechanical Ventilator 01/25/20 14:00 105 26 85/58 (67) 99 Mechanical Ventilator 50.00 01/25/20 12:20 113 141/107 01/25/20 11:59 101 45 178/101 (126) 92 Non Rebreather 15.00 01/25/20 11:50 36.7 110 40 181/105 (130) 92 Non Rebreather I & O 01/26/20 07:00 Intake Total 6220 ml Output Total 1525 ml Balance 4695 ml Height & Weight Height: '" Weight: lbs. oz. kg; 30.00 BMI Method: General Appearance: WD/WN, Severe Distress, Other HEENT: PERRL/EOMI, TMs Normal Respiratory: Decreased Breath Sounds, Respiratory Distress Cardiovascular: Normal Peripheral Pulses, Tachycardia Capillary Refill: Less Than 3 Seconds Gastrointestinal: normal bowel sounds, soft Extremity: Normal Capillary Refill, Normal Inspection Neurologic/Psychiatric: Other Skin: Normal Color, Warm/Dry Results Lab Laboratory Tests 01/25/20 12:00 01/25/20 15:57 01/26/20 03:50 Assessment/Plan Assessment/Plan Acute respiratory failure with ARDS Pa02/Fi02 ratio 135 -Change vent to 26//12 and continue to titrate Fi02 down. If unable to keep Sp02 <60% will increase PEEP. -Repeat ABG in 1 hr after vent changes -Prone x 14-16hours per day as tolerated -Conservative fluid management secondary to ARDS -Continue Remdesivir. -Monitor liver function -Decadron -Add Zosyn secondary to possible aspiration/secondary infection -Lynne cultures -Repeat Labs including LA COVID + Hypotension -IVF with LR at 150 -Levophed gtt STEFANI OFRDE DO Jan 26, 2020 04:59
[2020-01-26] MEDS: [UNRECOGNIZED DRUG - OTHER] IV SCH ×3 (05:17→22:07)
[2020-01-26] MEDS: ENOXAPARIN 100 MG/1 ML (LOVENOX) SYR SC SCH ×2 (05:17→16:45)
[2020-01-26] MEDS ORDERED: fentaNYL (OMNICELL DRIP KIT ONLY) 250 MCG/5 ML AMP ONE (05:34)
[2020-01-26] MEDS ORDERED: NS (IVPB) 100 ML ONE (05:35)
[2020-01-26] MEDS: fentaNYL INJECTION 1,250 MCG in NS (IVPB) 250 ML IV SCH ×2 (05:50→11:10)
[2020-01-26] MEDS: MAGNESIUM 1 GM/100 ML IVPB 100 ML IV SCH (05:53)
[2020-01-26] MEDS: KCL 20 MEQ TAB (K-DUR) PO SCH (05:53)
[2020-01-26] MEDS: POTASSIUM CL 10MEQ/50ML IVPB 50 ML IV SCH (05:53)
--- NOTE | 2020-01-26 05:56 | Pulmonary Procedures ---
Pulmonary Procedures Date of Procedure Date of Service: Jan 25, 2020 Lumen: triple Central Line Procedure: betadine prep, sterile drapes applied Position: femoral (R) Anesthesia: Lidocaine Complications: none Post Position: sutured, good blood return STEFANI FORDE DO Jan 26, 2020 05:56
[2020-01-26] MEDS: PANTOPRAZOLE 40 MG (PROTONIX) VIAL IV SCH (08:22)
[2020-01-26] MEDS: NS IV 1000 ML 1,000 ML IV SCH ×2 (08:25→19:07)
--- NOTE | 2020-01-26 10:10 | NUR ---
PICC TEAM AT BEDSIDE TO PLACE LINE. VERBAL CONSENT FROM PTS ANTOINETTE VENTURA VIA TELEPHONE WITH THIS RN AND PICC RN.
--- NOTE | 2020-01-26 11:13 | NUR ---
ATTEMPTED PICC LINE PLACEMENT X 2 ATTEMPTS BY Joselito MUNOZ RN AND THIS RN. ABLE TO ACCESS VEIN BUT UNABLE TO THREAD CATHETER EACH TIME. MULTIPLE ARM POSITIONS ATTEMPTED. PRIMARY NURSE NOTIFIED.
--- NOTE | 2020-01-26 12:22 | NUR ---
DR FORDE NOTIFIED OF UNSUCCESSFUL PICC ATTEMPT. TELEPHONE ORDER TO LEAVE CENTRAL LINE IN GROIN OBTAINED.
[2020-01-26] MEDS: DexMEDEtomidine 250 ML DRIP 250 ML IV SCH (15:50)
[2020-01-26] MEDS: REMDESIVIR INJ (FREE STOCK) 100 MG in NS (IVPB) 230 ML IV SCH (15:50)
--- NOTE | 2020-01-26 16:54 | NUR ---
FAM[place] CALLED AND THIS RN PLACED THEM ON SPEAKER PHONE FOR FAMILY TO SPEAK TO PATIENT. PT DID ATTEMPT TO OPEN EYES WHEN HEARING THEM SPEAK.
[2020-01-27] VITALS (30 sets, daily range): BP systolic 97–139; BP diastolic 54–78
[2020-01-27] MEDS: fentaNYL INJECTION 1,250 MCG in NS (IVPB) 250 ML IV SCH ×2 (00:47→18:08)
[2020-01-27] MEDS: PROPOFOL DRIP (ICU) 100 ML IV SCH ×7 (02:47→22:33)
[2020-01-27 03:04] LABS: ABG OXYGEN SATURATION 92 % (94-100); ABG PCO2 44 MMHG (35-45); ABG PH 7.37 (7.37-7.43); ABG PO2 75 MMHG (79-93); BASOPHILS % (AUTO) 0 % (0-10); EOSINOPHILS % (AUTO) 0 % (0-10); HEMATOCRIT 32 % (40-54); HEMOGLOBIN 10.3 G/DL (13.3-17.7); LYMPHOCYTES # (AUTO) 0.7 X 10^3 (1.0-4.0); LYMPHOCYTES % (AUTO) 5 % (12-44); MEAN CORPUSCULAR HEMOGLOBIN 30 PG (25-34); MEAN CORPUSCULAR HGB CONC 33 G/DL (32-36); MEAN CORPUSCULAR VOLUME 93 FL (80-99); MEAN PLATELET VOLUME 10.3 FL (7.4-10.4); MONOCYTES # (AUTO) 0.9 X 10^3 (0.0-1.0); MONOCYTES % (AUTO) 6 % (0-12); NEUTROPHILS # (AUTO) 12.7 X 10^3 (1.8-7.8); NEUTROPHILS % (AUTO) 89 % (42-75); PLATELET COUNT 272 10^3/uL (130-400); RED CELL DISTRIBUTION WIDTH 13.8 % (10.0-14.5); WHITE BLOOD COUNT 14.3 10^3/uL (4.3-11.0)
[2020-01-27 03:07] LABS: ALLENS TEST ART LINE; INSPIRED O2 35%; PATIENT TEMP 36.9; VENTILATOR YES
[2020-01-27 03:26] LABS: ALANINE AMINOTRANSFERASE 77 U/L (0-55); ALBUMIN 2.2 GM/DL (3.2-4.5); ALKALINE PHOSPHATASE 69 U/L (40-136); BILIRUBIN,TOTAL 0.3 MG/DL (0.1-1.0); BUN/CREATININE RATIO 33; CALCIUM 7.7 MG/DL (8.5-10.1); CARBON DIOXIDE 20 MMOL/L (21-32); CHLORIDE 112 MMOL/L (98-107); CREATININE SERUM 1.04 MG/DL (0.60-1.30); GFR ESTIMATED > 60; GLUCOSE 138 MG/DL (70-105); MAGNESIUM 2.4 MG/DL (1.6-2.4); PHOSPHORUS 3.6 MG/DL (2.3-4.7); POTASSIUM 4.6 MMOL/L (3.6-5.0); SODIUM 142 MMOL/L (135-145)
[2020-01-27] MEDS: LACTATED RINGERS 1,000 ML IV SCH ×4 (04:53→22:32)
[2020-01-27] MEDS: PIPERACILLIN/TAZOBACTAM (BULK) 4.5 GM in NS (IVPB) 100 ML IV SCH ×3 (04:53→19:51)
[2020-01-27] MEDS: ENOXAPARIN 100 MG/1 ML (LOVENOX) SYR SC SCH ×2 (04:55→17:48)
[2020-01-27] MEDS: [UNRECOGNIZED DRUG - OTHER] IV SCH ×3 (05:00→22:32)
[2020-01-27] MEDS: MAGNESIUM 1 GM/100 ML IVPB 100 ML IV SCH (06:17)
[2020-01-27] MEDS: POTASSIUM CL 10MEQ/50ML IVPB 50 ML IV SCH (06:17)
[2020-01-27] MEDS: KCL 20 MEQ TAB (K-DUR) PO SCH (06:17)
[2020-01-27] MEDS: NOREPINEPHRINE 4 MG/250 ML 250 ML IV SCH ×3 (06:40→20:02)
[2020-01-27] MEDS: PANTOPRAZOLE 40 MG (PROTONIX) VIAL IV SCH (09:08)
--- NOTE | 2020-01-27 10:40 | Progress Note - Hospitalist ---
Subjective HPI/CC On Admission Date Seen by Provider: Jan 27, 2020 Time Seen by Provider: 09:45 Subjective/Events-last exam He is intubated and sedated. Focused Exam Lactate Level 01/25/20 12:45: Lactic Acid Level 1.28 01/25/20 15:57: Lactic Acid Level 1.88 Objective Exam Vital Signs Vital Signs Date Time Temp Pulse Resp B/P (MAP) Pulse Ox O2 Delivery O2 Flow Rate FiO2 01/27/20 10:29 52 32 99 35 01/27/20 10:00 133/69 (90) Mechanical Ventilator 50.00 01/27/20 09:29 36.0 Capillary Refill : Less Than 3 Seconds General Appearance: No Apparent Distress, Obese Respiratory: Lungs Clear, No Respiratory Distress, Decreased Breath Sounds, Other (Intubated and mechanically ventilated) Cardiovascular: No Murmur, Bradycardia (Frequent PVCs) Gastrointestinal: Soft, Abnormal Bowel Sounds (Hypoactive) Extremity: Normal Inspection, No Pedal Edema Neurologic/Psychiatric: Other (Sedated) Skin: Normal Color, Warm/Dry Results/Procedures Lab Laboratory Tests 01/27/20 02:50 Patient resulted labs reviewed. Imaging: Reviewed Imaging Report Assessment/Plan Assessment and Plan Assess & Plan/Chief Complaint COVID-19 ARDS Elevated LFTs Elevated d-dimer Viral sepsis Tele-ICU managing ventilator Current settings: RR 32, TV 470, PEEP 14, FiO2 35% Saturating 99 percent this morning, consider decreasing PEEP Proning intermittently Continue Decadron and Remdesivir Continue PPI Consider tube feeding LFTs trending down Continue Lovenox Shock, resolved Diagnosis/Problems Diagnosis/Problems (1) COVID-19 Status: Acute (2) ARDS (adult respiratory distress syndrome) Status: Acute (3) Elevated LFTs Status: Acute (4) Elevated d-dimer Status: Acute (5) Shock Status: Resolved Resolution Date/Time: 01/27/20 @ 10:41 Clinical Quality Measures DVT/VTE Risk/Contraindication: Risk Factor Score Per Nursin RFS Level Per Nursing on Admit: 4+=Very High FRANNIE SMITH MD Jan 27, 2020 10:40
--- NOTE | 2020-01-27 10:43 | NUR ---
TELEPHONED E-ICU FOR RECOMMENDATIONS PER DR SMITH REQUEST. SPOKE WITH DR WASHINGTON. WILL BE PLACING ORDERS TO DECREASE PEEP EVERY TWO HOURS BY 2 UNTIL PEEP IS AT 8, CALL IF DESATS WITH CHANGE. WILL PLACE TUBE FEEDING RECOMMENDATIONS. ADVISED OF FREQUENCY OF PVC'S, PT BRADYCARDIC WITH LOWEST RATE SEEN 49. HAS HAD THESE PVC'S SINCE WEDNESDAY. DR WASHINGTON ADVISED SHE WILL REVIEW CHART AND CALL BACK WITH ANY RECOMMENDATIONS. SINCE PATIENTS BP IS STABLE OFF OF PRESSORS, WILL MONITOR PVC'S FOR NOW.
--- NOTE | 2020-01-27 11:28 | NUR ---
PEEP DECREASED TO [address] WASHINGTON. TOLERATING WELL WHILE IN ROOM.
--- NOTE | 2020-01-27 13:31 | NUR ---
PEEP TO 10 PER ORDER. WHILE IN ROOM, PATIENT TOLERATING WELL.
[2020-01-27] MEDS: DexMEDEtomidine 250 ML DRIP 250 ML IV SCH (15:02)
[2020-01-27] MEDS: REMDESIVIR INJ (FREE STOCK) 100 MG in NS (IVPB) 230 ML IV SCH (15:22)
--- NOTE | 2020-01-27 15:30 | NUR ---
PEEP TO 8 PER ORDER. PT TOLERATING WELL WHILE IN ROOM.
[2020-01-27] MEDS: inSUlin ASPART (NovoLOG) 1 UNIT/0.01 ML (CHARGE PER UNIT) SC SCH (18:06)
[2020-01-27 20:12] LABS: POTASSIUM 4.6 MMOL/L (3.6-5.0)
[2020-01-27 20:19] LABS: MAGNESIUM 2.2 MG/DL (1.6-2.4)
[2020-01-28] VITALS (29 sets, daily range): BP systolic 92–147; BP diastolic 57–75
[2020-01-28] MEDS: inSUlin ASPART (NovoLOG) 1 UNIT/0.01 ML (CHARGE PER UNIT) SC SCH ×4 (00:37→18:21)
[2020-01-28] MEDS: NOREPINEPHRINE 4 MG/250 ML 250 ML IV SCH ×4 (01:17→23:38)
[2020-01-28] MEDS: PROPOFOL DRIP (ICU) 100 ML IV SCH ×7 (01:59→21:52)
[2020-01-28 02:09] LABS: BASOPHILS % (AUTO) 0 % (0-10); EOSINOPHILS # (AUTO) 0.1 10^3/uL (0.0-0.3); EOSINOPHILS % (AUTO) 1 % (0-10); HEMATOCRIT 32 % (40-54); HEMOGLOBIN 10.5 G/DL (13.3-17.7); LYMPHOCYTES # (AUTO) 1.1 X 10^3 (1.0-4.0); LYMPHOCYTES % (AUTO) 9 % (12-44); MEAN CORPUSCULAR HEMOGLOBIN 30 PG (25-34); MEAN CORPUSCULAR HGB CONC 33 G/DL (32-36); MEAN CORPUSCULAR VOLUME 93 FL (80-99); MONOCYTES # (AUTO) 0.8 X 10^3 (0.0-1.0); MONOCYTES % (AUTO) 6 % (0-12); NEUTROPHILS % (AUTO) 83 % (42-75); PLATELET COUNT 286 10^3/uL (130-400); RED CELL DISTRIBUTION WIDTH 13.7 % (10.0-14.5)
[2020-01-28 02:10] LABS: ABG BASE EXCESS 0.6 MMOL/L (-2.5-2.5); ABG OXYGEN SATURATION 89 % (94-100); ABG PCO2 38 MMHG (35-45); ABG PH 7.42 (7.37-7.43); ABG PO2 67 MMHG (79-93); ABG TCO2 25.6 MMOL/L (21.0-31.0)
[2020-01-28] MEDS: fentaNYL INJECTION 1,250 MCG in NS (IVPB) 250 ML IV SCH ×3 (02:11→22:39)
[2020-01-28 02:12] LABS: ALLENS TEST ART LINE; INSPIRED O2 50%; PATIENT TEMP 37.1; VENTILATOR YES
[2020-01-28 02:21] LABS: ALBUMIN 2.2 GM/DL (3.2-4.5); CHLORIDE 111 MMOL/L (98-107); POTASSIUM 4.6 MMOL/L (3.6-5.0); SODIUM 140 MMOL/L (135-145)
[2020-01-28 02:22] LABS: CALCIUM 7.5 MG/DL (8.5-10.1)
[2020-01-28 02:24] LABS: GLUCOSE 115 MG/DL (70-105); TOTAL PROTEIN 4.8 GM/DL (6.4-8.2)
[2020-01-28 02:25] LABS: BILIRUBIN,TOTAL 0.3 MG/DL (0.1-1.0); CARBON DIOXIDE 21 MMOL/L (21-32)
[2020-01-28 02:27] LABS: ALKALINE PHOSPHATASE 68 U/L (40-136)
[2020-01-28 02:28] LABS: CREATININE SERUM 0.88 MG/DL (0.60-1.30); GFR ESTIMATED > 60
[2020-01-28 02:29] LABS: BUN/CREATININE RATIO 38
[2020-01-28 02:30] LABS: ALANINE AMINOTRANSFERASE 55 U/L (0-55); MAGNESIUM 2.1 MG/DL (1.6-2.4)
[2020-01-28] MEDS: MAGNESIUM 1 GM/100 ML IVPB 100 ML IV SCH (02:45)
[2020-01-28] MEDS: KCL 20 MEQ TAB (K-DUR) PO SCH (02:45)
[2020-01-28] MEDS: POTASSIUM CL 10MEQ/50ML IVPB 50 ML IV SCH (02:45)
[2020-01-28] MEDS: PIPERACILLIN/TAZOBACTAM (BULK) 4.5 GM in NS (IVPB) 100 ML IV SCH ×3 (04:54→21:07)
[2020-01-28] MEDS: LACTATED RINGERS 1,000 ML IV SCH ×2 (04:55→15:57)
[2020-01-28] MEDS: ENOXAPARIN 100 MG/1 ML (LOVENOX) SYR SC SCH ×2 (04:55→15:58)
[2020-01-28] MEDS: [UNRECOGNIZED DRUG - OTHER] IV SCH ×3 (04:55→21:07)
[2020-01-28] MEDS: PANTOPRAZOLE 40 MG (PROTONIX) VIAL IV SCH (08:44)
--- NOTE | 2020-01-28 11:20 | Progress Note ---
Standard Progress Note Progress Notes/Assess & Plan Date Seen by Provider: Jan 28, 2020 Time Seen by Provider: 11:15 Progress/Assessment & Plan 54 M with COVID19 + on vent for PNA, on no pressors, Looks stable, on IV propofol and fentnayl vent FiO2 50%, trending upward. AC 32, Vt 470 PEEP 8, thin secretions, no hemoptysis, has cough, On IV Zosyn, also remdisivir, CXR 01/24 shows diffuse infiltrates, has ARDS picture Ex smoker, Ex EtoH Labs, Vital Signs, I&O Laboratory Tests 01/27/20 17:41: Glucometer 122H 01/27/20 19:48: Potassium Level 4.6, Magnesium Level 2.2 01/27/20 22:29: Glucometer 111H 01/28/20 02:02: Potassium Level 4.6, Magnesium Level 2.1, White Blood Count 12.0H, Red Blood Count 3.48L, Hemoglobin 10.5L, Hematocrit 32L, Mean Corpuscular Volume 93, Mean Corpuscular Hemoglobin 30, Mean Corpuscular Hemoglobin Concent 33, Red Cell Distribution Width 13.7, Platelet Count 286, Mean Platelet Volume 10.0, Neutrophils (%) (Auto) 83H, Lymphocytes (%) (Auto) 9L, Monocytes (%) (Auto) 6, Eosinophils (%) (Auto) 1, Basophils (%) (Auto) 0, Neutrophils # (Auto) 10.0H, Lymphocytes # (Auto) 1.1, Monocytes # (Auto) 0.8, Eosinophils # (Auto) 0.1, Basophils # (Auto) 0.0, Blood Gas Puncture Site RT ART LINE, Blood Gas Patient Temperature 37.1, Arterial Blood pH 7.42, Arterial Blood Partial Pressure CO2 38, Arterial Blood Partial Pressure O2 67L, Arterial Blood HCO3 25, Arterial Blood Total CO2 25.6, Arterial Blood Oxygen Saturation 89L, Arterial Blood Base Excess 0.6, Angelo Test ART LINE, Blood Gas Ventilator Setting YES, Blood Gas Inspired Oxygen 50%, Sodium Level 140, Chloride Level 111H, Carbon Dioxide Level 21, Anion Gap 8, Blood Urea Nitrogen 33H, Creatinine 0.88, Estimat Glomerular Filtration Rate > 60, BUN/Creatinine Ratio 38, Glucose Level 115H, Calcium Level 7.5L, Corrected Calcium 8.9, Phosphorus Level 3.0, Total Bilirubin 0.3, Aspartate Amino Transf (AST/SGOT) 22, Alanine Aminotransferase (ALT/SGPT) 55, Alkaline Phosphatase 68, Total Protein 4.8L, Albumin 2.2L Microbiology 01/25/20 MRSA Screen - Final, Complete MRSA not isolated 01/25/20 Blood Culture - Preliminary, Resulted Staph, Coag Neg (INSURANCE CONSULTANT) See Comments 01/25/20 Urine Culture - Final, Complete NO GROWTH 01/27/20 01/28/20 01/28/20 01/28/20 23:16 00:00 01:00 01:00 Pulse 79 70 81 Resp 18 31 B/P (MAP) 118/68 (85) 104/71 (82) Pulse Ox 89 90 O2 Delivery Mechanical Ventilator Mechanical Ventilator Mechanical Ventilator O2 Flow Rate 50.00 50.00 FiO2 50 01/28/20 01/28/20 01/28/20 01/28/20 01:59 02:00 02:27 03:00 Pulse 76 78 69 Resp 32 31 B/P (MAP) 123/76 122/72 (89) 116/64 (81) Pulse Ox 96 90 91 O2 Delivery Mechanical Ventilator Mechanical Ventilator O2 Flow Rate 50.00 50.00 FiO2 40 01/28/20 01/28/20 01/28/20 01/28/20 03:04 03:05 04:00 04:55 Temp 37.1 Pulse 70 Resp 15 B/P (MAP) 101/67 (78) 101/67 Pulse Ox 91 O2 Delivery Mechanical Ventilator Mechanical Ventilator O2 Flow Rate 50.00 FiO2 50 01/28/20 01/28/20 01/28/20 01/28/20 05:00 06:00 07:00 07:00 Pulse 74 70 74 73 Resp 32 31 B/P (MAP) 146/75 (98) 108/57 (74) 106/71 (83) Pulse Ox 94 92 91 O2 Delivery Mechanical Ventilator Mechanical Ventilator Mechanical Ventilator O2 Flow Rate 50.00 50.00 50.00 01/28/20 01/28/20 01/28/20 01/28/20 07:10 08:00 08:37 08:41 Pulse 74 73 73 Resp 32 32 B/P (MAP) 122/67 (85) 126/66 Pulse Ox 92 91 93 O2 Delivery Mechanical Ventilator Mechanical Ventilator O2 Flow Rate 50.00 FiO2 55 55 6/01/28/20 01/28/20 01/28/20 08:41 08:57 09:00 10:00 Temp 36.2 Pulse 74 66 Resp 32 34 B/P (MAP) 120/65 (83) 111/63 (79) Pulse Ox 90 91 O2 Delivery Mechanical Ventilator Mechanical Ventilator O2 Flow Rate 50.00 50.00 01/28/20 11:00 Pulse 72 B/P (MAP) 119/64 (82) Pulse Ox 91 O2 Delivery Mechanical Ventilator O2 Flow Rate 50.00 01/28/20 00:00 Intake Total 3615 ml Output Total 1075 ml Balance 2540 ml Laboratory Tests Test 01/27/20 02:50 01/28/20 02:02 Blood Gas Puncture Site RIGHT ART LINE RT ART LINE Blood Gas Patient Temperature 36.9 37.1 Arterial Blood pH 7.37 7.42 Arterial Blood Partial Pressure CO2 44 MMHG 38 MMHG Arterial Blood Partial Pressure O2 75 MMHG 67 MMHG Arterial Blood HCO3 25 MMOL/L 25 MMOL/L Arterial Blood Total CO2 26.0 MMOL/L 25.6 MMOL/L Arterial Blood Oxygen Saturation 92 % 89 % Arterial Blood Base Excess 0.0 MMOL/L 0.6 MMOL/L Angelo Test ART LINE ART LINE Blood Gas Ventilator Setting YES YES Blood Gas Inspired Oxygen 35% 50% Laboratory Tests 01/28/20 02:02: White Blood Count 12.0H, Red Blood Count 3.48L, Hemoglobin 10.5L, Hematocrit 32L , Mean Corpuscular Volume 93, Mean Corpuscular Hemoglobin 30, Mean Corpuscular Hemoglobin Concent 33, Red Cell Distribution Width 13.7, Platelet Count 286, Mean Platelet Volume 10.0, Neutrophils (%) (Auto) 83H, Lymphocytes (%) (Auto) 9L , Monocytes (%) (Auto) 6, Eosinophils (%) (Auto) 1, Basophils (%) (Auto) 0, Neutrophils # (Auto) 10.0H, Lymphocytes # (Auto) 1.1, Monocytes # (Auto) 0.8, Eosinophils # (Auto) 0.1, Basophils # (Auto) 0.0, Blood Gas Puncture Site RT ART LINE, Blood Gas Patient Temperature 37.1, Arterial Blood pH 7.42, Arterial Blood Partial Pressure CO2 38, Arterial Blood Partial Pressure O2 67L, Arterial Blood HCO3 25, Arterial Blood Total CO2 25.6, Arterial Blood Oxygen Saturation 89L, Arterial Blood Base Excess 0.6, Angelo Test ART LINE, Blood Gas Ventilator Setting YES, Blood Gas Inspired Oxygen 50%, Sodium Level 140, Potassium Level 4.6, Chloride Level 111H, Carbon Dioxide Level 21, Anion Gap 8, Blood Urea Nitrogen 33H, Creatinine 0.88, Estimat Glomerular Filtration Rate > 60, BUN/Creatinine Ratio 38, Glucose Level 115H, Calcium Level 7.5L, Corrected Calcium 8.9, Phosphorus Level 3.0, Magnesium Level 2.1, Total Bilirubin 0.3, Aspartate Amino Transf (AST/SGOT) 22, Alanine Aminotransferase (ALT/SGPT) 55, Alkaline Phosphatase 68, Total Protein 4.8L, Albumin 2.2L Final Diagnosis A] ARDS picture from COVID 19, P]will keep on present abx leave on full vent support as FiO2 needs are goind up, order CXR for am Focused Exam Lactate Level 01/25/20 12:45: Lactic Acid Level 1.28 01/25/20 15:57: Lactic Acid Level 1.88 Clinical Quality Measures DVT/VTE Risk/Contraindication: Risk Factor Score Per Nursin RFS Level Per Nursing on Admit: 4+=Very High SERA LR MD Jan 28, 2020 11:20
--- NOTE | 2020-01-28 11:25 | Progress Note - Hospitalist ---
Subjective HPI/CC On Admission Date Seen by Provider: Jan 28, 2020 Time Seen by Provider: 10:25 Subjective/Events-last exam He remains intubated and sedated. Focused Exam Lactate Level 01/25/20 12:45: Lactic Acid Level 1.28 01/25/20 15:57: Lactic Acid Level 1.88 Objective Exam Vital Signs Vital Signs Date Time Temp Pulse Resp B/P (MAP) Pulse Ox O2 Delivery O2 Flow Rate FiO2 01/28/20 11:00 72 119/64 (82) 91 Mechanical Ventilator 50.00 01/28/20 10:00 34 01/28/20 08:57 01/28/20 08:37 55 Capillary Refill : Less Than 3 Seconds General Appearance: No Apparent Distress, Obese, Other (Intubated and sedated) HEENT: Other (ET/OG in place) Respiratory: Lungs Clear, No Respiratory Distress, Decreased Breath Sounds, Other (Intubated and mechanically ventilated) Cardiovascular: Regular Rate, Rhythm, No Edema, No Murmur Gastrointestinal: Normal Bowel Sounds, Soft Extremity: Normal Inspection, No Pedal Edema Neurologic/Psychiatric: Other (Sedated) Skin: Normal Color, Warm/Dry Results/Procedures Lab Laboratory Tests 01/27/20 19:48 01/28/20 02:02 Patient resulted labs reviewed. Imaging: Reviewed Imaging Report Assessment/Plan Assessment and Plan Assess & Plan/Chief Complaint COVID-19 ARDS Elevated d-dimer Viral sepsis Tele-ICU managing ventilator PEEP decreasing, FiO2 increasing Continue Decadron and Remdesivir Continue PPI Started on tube feeds LFTs normalized Continue Lovenox Shock, resolved Elevated LFTs, resolved Diagnosis/Problems Diagnosis/Problems (1) COVID-19 Status: Acute (2) ARDS (adult respiratory distress syndrome) Status: Acute (3) Elevated LFTs Status: Resolved Resolution Date/Time: 01/28/20 @ 11:25 (4) Elevated d-dimer Status: Acute (5) Shock Status: Resolved Resolution Date/Time: 01/27/20 @ 10:41 Clinical Quality Measures DVT/VTE Risk/Contraindication: Risk Factor Score Per Nursin RFS Level Per Nursing on Admit: 4+=Very High FRANNIE SMITH MD Jan 28, 2020 11:25
--- NOTE | 2020-01-28 12:54 | Diagnostic Imaging Report ---
Indication: Pneumonia Comparison: 01/25/2020 Findings: Single view of the chest demonstrates persistent but slightly decreased bilateral pulmonary infiltrates. Probable new effusion is seen in both bases. There was no pneumothorax. Support lines are stable. Heart remains prominent. Impression: 1. Slightly improved aeration throughout both lungs. 2. Probable trace bilateral pleural effusions. Dictated by: Dictated on workstation # [id number]
[2020-01-28] MEDS: DexMEDEtomidine 250 ML DRIP 250 ML IV SCH (15:24)
[2020-01-28] MEDS: REMDESIVIR INJ (FREE STOCK) 100 MG in NS (IVPB) 230 ML IV SCH (15:57)
[2020-01-28] MEDS ORDERED: fentaNYL (OMNICELL DRIP KIT ONLY) 250 MCG/5 ML AMP ONE (21:54)
[2020-01-29] VITALS (33 sets, daily range): BP systolic 92–162; BP diastolic 57–91
[2020-01-29] MEDS: LACTATED RINGERS 1,000 ML IV SCH ×2 (00:54→11:56)
[2020-01-29] MEDS: inSUlin ASPART (NovoLOG) 1 UNIT/0.01 ML (CHARGE PER UNIT) SC SCH ×5 (00:54→23:19)
[2020-01-29] MEDS: PROPOFOL DRIP (ICU) 100 ML IV SCH ×6 (00:55→20:01)
--- NOTE | 2020-01-29 02:00 | NUR ---
THIS RN TO TAKE OVER CARE OF THIS PT AT THIS TIME
[2020-01-29] MEDS: PIPERACILLIN/TAZOBACTAM (BULK) 4.5 GM in NS (IVPB) 100 ML IV SCH ×3 (03:23→20:02)
[2020-01-29 03:40] LABS: ABG BASE EXCESS -0.1 MMOL/L (-2.5-2.5); ABG OXYGEN SATURATION 88 % (94-100); ABG PCO2 34 MMHG (35-45); ABG PH 7.45 (7.37-7.43); ABG PO2 58 MMHG (79-93); ABG TCO2 24.7 MMOL/L (21.0-31.0)
[2020-01-29 03:44] LABS: BASOPHILS % (AUTO) 0 % (0-10); EOSINOPHILS % (AUTO) 0 % (0-10); HEMATOCRIT 32 % (40-54); HEMOGLOBIN 10.2 G/DL (13.3-17.7); LYMPHOCYTES # (AUTO) 0.8 X 10^3 (1.0-4.0); LYMPHOCYTES % (AUTO) 6 % (12-44); MEAN CORPUSCULAR HGB CONC 32 G/DL (32-36); MEAN CORPUSCULAR VOLUME 92 FL (80-99); MEAN PLATELET VOLUME 10.5 FL (7.4-10.4); MONOCYTES # (AUTO) 0.9 X 10^3 (0.0-1.0); MONOCYTES % (AUTO) 6 % (0-12); NEUTROPHILS # (AUTO) 11.8 X 10^3 (1.8-7.8); NEUTROPHILS % (AUTO) 87 % (42-75); PLATELET COUNT 281 10^3/uL (130-400); RED CELL DISTRIBUTION WIDTH 13.8 % (10.0-14.5); WHITE BLOOD COUNT 13.5 10^3/uL (4.3-11.0)
[2020-01-29 03:54] LABS: ALLENS TEST YES-POS; INSPIRED O2 40%; VENTILATOR YES
[2020-01-29 04:00] LABS: ALBUMIN 2.1 GM/DL (3.2-4.5); CHLORIDE 110 MMOL/L (98-107); POTASSIUM 4.4 MMOL/L (3.6-5.0); SODIUM 138 MMOL/L (135-145)
[2020-01-29 04:01] LABS: CALCIUM 7.4 MG/DL (8.5-10.1)
[2020-01-29 04:02] LABS: GLUCOSE 145 MG/DL (70-105); TRIGLYCERIDES 163 MG/DL (<150)
[2020-01-29 04:03] LABS: TOTAL PROTEIN 4.8 GM/DL (6.4-8.2)
[2020-01-29 04:04] LABS: BILIRUBIN,TOTAL 0.3 MG/DL (0.1-1.0); CARBON DIOXIDE 19 MMOL/L (21-32)
[2020-01-29 04:05] LABS: MEAN CORPUSCULAR HEMOGLOBIN 29 PG (25-34)
[2020-01-29 04:06] LABS: ALKALINE PHOSPHATASE 71 U/L (40-136); CREATININE SERUM 0.85 MG/DL (0.60-1.30); GFR ESTIMATED > 60; PHOSPHORUS 3.4 MG/DL (2.3-4.7)
[2020-01-29 04:07] LABS: BUN/CREATININE RATIO 36
[2020-01-29 04:09] LABS: ALANINE AMINOTRANSFERASE 49 U/L (0-55)
[2020-01-29] MEDS: MAGNESIUM 1 GM/100 ML IVPB 100 ML IV SCH (04:25)
[2020-01-29] MEDS: POTASSIUM CL 10MEQ/50ML IVPB 50 ML IV SCH (04:25)
[2020-01-29] MEDS: KCL 20 MEQ TAB (K-DUR) PO SCH (04:25)
[2020-01-29] MEDS ORDERED: BUMETANIDE 1 MG/4 ML (BUMEX) VIAL IV ONE (04:45)
--- NOTE | 2020-01-29 04:50 | Pulmonary Progress Note ---
Subjective Time Seen by a Provider: 04:42 Sepsis Event Evaluation Height, Weight, BMI Height: '" Weight: lbs. oz. kg; 30.00 BMI Method: Exam Exam Vital Signs Date Time Temp Pulse Resp B/P (MAP) Pulse Ox O2 Delivery O2 Flow Rate FiO2 01/29/20 04:17 122/63 01/29/20 04:17 70 32 120/61 (80) 95 Mechanical Ventilator 50.00 01/29/20 04:00 73 32 106/57 (73) 95 Mechanical Ventilator 40.00 01/29/20 03:36 95 Mechanical Ventilator 40 01/29/20 03:26 36.0 01/29/20 03:00 68 32 148/63 (91) 93 Mechanical Ventilator 40.00 01/29/20 02:50 61 32 160/67 (98) 95 Mechanical Ventilator 40.00 01/29/20 02:44 61 32 97 40 01/29/20 02:00 60 32 149/82 (104) 97 Mechanical Ventilator 45.00 01/29/20 01:00 60 01/29/20 01:00 60 32 136/81 (99) 95 Mechanical Ventilator 45.00 01/29/20 00:55 71 141/65 01/29/20 00:00 95 Mechanical Ventilator 45 01/29/20 00:00 36.6 01/29/20 00:00 63 32 133/70 (91) 94 Mechanical Ventilator 45.00 01/28/20 23:00 65 32 136/68 (90) 94 Mechanical Ventilator 45.00 01/28/20 22:37 73 31 147/73 (97) 95 Mechanical Ventilator 45.00 01/28/20 22:10 65 32 99 55 01/28/20 22:00 63 31 142/71 (94) 97 Mechanical Ventilator 50.00 01/28/20 21:52 62 146/72 01/28/20 21:00 69 31 130/65 (86) 98 Mechanical Ventilator 50.00 01/28/20 20:00 99 Mechanical Ventilator 55 01/28/20 20:00 70 31 132/67 (88) 100 Mechanical Ventilator 50.00 01/28/20 20:00 36.8 01/28/20 19:00 76 01/28/20 19:00 76 31 127/65 (85) 98 Mechanical Ventilator 50.00 01/28/20 18:45 94 32 96 55 01/28/20 18:21 70 158/77 01/28/20 18:00 79 28 141/72 (95) 98 Mechanical Ventilator 50.00 01/28/20 17:00 78 34 129/67 (87) 96 Mechanical Ventilator 50.00 01/28/20 16:30 94 Mechanical Ventilator 55 01/28/20 16:00 70 32 94/61 (72) 100 Mechanical Ventilator 50.00 01/28/20 15:57 67 130/68 01/28/20 15:16 69 32 96 55 01/28/20 15:00 70 32 117/63 (81) 100 Mechanical Ventilator 50.00 01/28/20 14:00 70 31 103/69 (80) 97 Mechanical Ventilator 50.00 01/28/20 13:00 66 32 115/64 (81) 99 Mechanical Ventilator 50.00 01/28/20 12:35 64 104/70 01/28/20 12:32 71 01/28/20 12:00 71 34 114/63 (80) 92 Mechanical Ventilator 50.00 01/28/20 11:30 94 Mechanical Ventilator 55 01/28/20 11:00 72 119/64 (82) 91 Mechanical Ventilator 50.00 01/28/20 10:00 66 34 111/63 (79) 91 Mechanical Ventilator 50.00 01/28/20 09:00 74 32 120/65 (83) 90 Mechanical Ventilator 50.00 01/28/20 08:57 01/28/20 08:41 36.2 01/28/20 08:41 73 126/66 01/28/20 08:37 93 Mechanical Ventilator 55 01/28/20 08:00 73 32 122/67 (85) 91 Mechanical Ventilator 50.00 01/28/20 07:10 74 32 92 55 01/28/20 07:00 73 31 106/71 (83) 91 Mechanical Ventilator 50.00 01/28/20 07:00 74 01/28/20 06:00 70 32 108/57 (74) 92 Mechanical Ventilator 50.00 01/28/20 05:00 74 25 146/75 (98) 94 Mechanical Ventilator 50.00 01/28/20 04:55 101/67 I & O 01/29/20 07:00 Intake Total 4905 ml Output Total 1950 ml Balance 2955 ml Height & Weight Height: '" Weight: lbs. oz. kg; 30.00 BMI Method: General Appearance: No Apparent Distress, Obese, Other (Intubated and sedated) HEENT: Other (ET/OG in place) Respiratory: Lungs Clear, No Respiratory Distress, Decreased Breath Sounds, Other (Intubated and mechanically ventilated) Cardiovascular: Regular Rate, Rhythm, No Edema, No Murmur Capillary Refill: Less Than 3 Seconds Gastrointestinal: normal bowel sounds, soft Extremity: Normal Inspection, No Pedal Edema Neurologic/Psychiatric: Other (Sedated) Skin: Normal Color, Warm/Dry Results Lab Laboratory Tests 01/27/20 19:48 01/28/20 02:02 01/29/20 03:22 Assessment/Plan Assessment/Plan Acute respiratory failure with ARDS Pa02/Fi02 ratio 135 -Change vent to 26/450/12 and continue to titrate Fi02 down. If unable to keep Sp02 <60% will increase PEEP. -Repeat ABG in 1 hr after vent changes -Give Bumex 2mg X 1 and decrease IVF to 30cc/hr -Check BNP -Prone x 14-16hours per day as tolerated -Conservative fluid management secondary to ARDS -Continue Remdesivir. -Monitor liver function -Decadron -Continue Zosyn -MRSA swab is neg. PNA with probable MSSA -Improving leukocytosis with Zosyn and neg MRSA nasal swab -Continue to monitor -Pt has copious amounts of sputum -repeat sputum C&S -Repeat PCT COVID + Hypotension -- Improved -IVF with LR decrease to 30cc/hr -Levophed gtt STEFANI FORDE DO Jan 29, 2020 04:50
[2020-01-29] MEDS: ENOXAPARIN 100 MG/1 ML (LOVENOX) SYR SC SCH ×2 (06:07→18:02)
[2020-01-29] MEDS: [UNRECOGNIZED DRUG - OTHER] IV SCH ×3 (06:07→22:19)
[2020-01-29] MEDS: NOREPINEPHRINE 4 MG/250 ML 250 ML IV SCH ×3 (06:07→20:00)
[2020-01-29 06:15] LABS: ABG BASE EXCESS 0.1 MMOL/L (-2.5-2.5); ABG OXYGEN SATURATION 92 % (94-100); ABG PCO2 38 MMHG (35-45); ABG PH 7.42 (7.37-7.43); ABG PO2 67 MMHG (79-93); ABG TCO2 25.4 MMOL/L (21.0-31.0)
[2020-01-29 06:16] LABS: ALLENS TEST YES-POS; INSPIRED O2 50%; VENTILATOR YES
[2020-01-29] MEDS: fentaNYL INJECTION 1,250 MCG in NS (IVPB) 250 ML IV SCH ×3 (07:01→22:38)
--- NOTE | 2020-01-29 07:32 | Diagnostic Imaging Report ---
EXAMINATION: Chest 1 view HISTORY: Acute respiratory distress syndrome. COMPARISON: Chest radiograph on 01/28/2020. FINDINGS: Stable configuration of the endotracheal tube and enteric tube. There are decreased lung volumes with increasing interstitial and alveolar opacities throughout the lungs. Possible bilateral pleural effusions are seen. No large pneumothorax. The cardiac silhouette is stable in size. No acute osseous abnormalities. IMPRESSION: 1. Worsening diffuse interstitial and alveolar opacities with decreased lung volumes. These findings may represent infection and/or edema. 2. Stable support devices. Dictated by: Dictated on workstation # [id number]
[2020-01-29] MEDS: PANTOPRAZOLE 40 MG (PROTONIX) VIAL IV SCH (07:48)
[2020-01-29] MEDS: DexMEDEtomidine 250 ML DRIP 250 ML IV SCH (14:20)
[2020-01-29] MEDS: REMDESIVIR INJ (FREE STOCK) 100 MG in NS (IVPB) 230 ML IV SCH (15:28)
[2020-01-30] VITALS (31 sets, daily range): BP systolic 93–167; BP diastolic 50–80
[2020-01-30] MEDS: NOREPINEPHRINE 4 MG/250 ML 250 ML IV SCH ×3 (00:52→15:27)
[2020-01-30] MEDS: PROPOFOL DRIP (ICU) 100 ML IV SCH ×5 (01:04→22:17)
[2020-01-30] MEDS: PIPERACILLIN/TAZOBACTAM (BULK) 4.5 GM in NS (IVPB) 100 ML IV SCH ×2 (03:31→12:04)
[2020-01-30 03:44] LABS: ABG BASE EXCESS 1.3 MMOL/L (-2.5-2.5); ABG OXYGEN SATURATION 91 % (94-100); ABG PCO2 43 MMHG (35-45); ABG PH 7.39 (7.37-7.43); ABG PO2 70 MMHG (79-93); ALLENS TEST ART LINE; INSPIRED O2 50%; PATIENT TEMP 36.9; VENTILATOR YES
[2020-01-30 03:44] LABS: BASOPHILS % (AUTO) 0 % (0-10); EOSINOPHILS # (AUTO) 0.1 10^3/uL (0.0-0.3); EOSINOPHILS % (AUTO) 0 % (0-10); HEMATOCRIT 32 % (40-54); HEMOGLOBIN 10.7 G/DL (13.3-17.7); LYMPHOCYTES # (AUTO) 0.9 X 10^3 (1.0-4.0); LYMPHOCYTES % (AUTO) 6 % (12-44); MEAN CORPUSCULAR HEMOGLOBIN 31 PG (25-34); MEAN CORPUSCULAR HGB CONC 33 G/DL (32-36); MEAN CORPUSCULAR VOLUME 92 FL (80-99); MEAN PLATELET VOLUME 10.7 FL (7.4-10.4); MONOCYTES # (AUTO) 0.8 X 10^3 (0.0-1.0); MONOCYTES % (AUTO) 6 % (0-12); NEUTROPHILS # (AUTO) 11.7 X 10^3 (1.8-7.8); NEUTROPHILS % (AUTO) 87 % (42-75); PLATELET COUNT 311 10^3/uL (130-400); RED CELL DISTRIBUTION WIDTH 13.5 % (10.0-14.5); WHITE BLOOD COUNT 13.5 10^3/uL (4.3-11.0)
[2020-01-30 03:58] LABS: ALBUMIN 2.1 GM/DL (3.2-4.5); CHLORIDE 109 MMOL/L (98-107); POTASSIUM 4.4 MMOL/L (3.6-5.0); SODIUM 138 MMOL/L (135-145)
[2020-01-30 04:00] LABS: CALCIUM 7.5 MG/DL (8.5-10.1)
[2020-01-30 04:01] LABS: GLUCOSE 125 MG/DL (70-105); TOTAL PROTEIN 4.9 GM/DL (6.4-8.2)
[2020-01-30 04:02] LABS: CARBON DIOXIDE 22 MMOL/L (21-32)
[2020-01-30 04:03] LABS: BILIRUBIN,TOTAL 0.3 MG/DL (0.1-1.0)
[2020-01-30 04:04] LABS: ALKALINE PHOSPHATASE 64 U/L (40-136); PHOSPHORUS 3.5 MG/DL (2.3-4.7)
[2020-01-30 04:05] LABS: CREATININE SERUM 0.76 MG/DL (0.60-1.30); GFR ESTIMATED > 60
[2020-01-30 04:06] LABS: BUN/CREATININE RATIO 33
[2020-01-30 04:07] LABS: MAGNESIUM 2.1 MG/DL (1.6-2.4)
[2020-01-30 04:08] LABS: ALANINE AMINOTRANSFERASE 46 U/L (0-55)
[2020-01-30] MEDS: KCL 20 MEQ TAB (K-DUR) PO SCH (04:29)
[2020-01-30] MEDS: MAGNESIUM 1 GM/100 ML IVPB 100 ML IV SCH (04:30)
[2020-01-30] MEDS: POTASSIUM CL 10MEQ/50ML IVPB 50 ML IV SCH (04:30)
[2020-01-30] MEDS: ENOXAPARIN 100 MG/1 ML (LOVENOX) SYR SC SCH (04:53)
[2020-01-30] MEDS: [UNRECOGNIZED DRUG - OTHER] IV SCH (05:06)
[2020-01-30] MEDS: inSUlin ASPART (NovoLOG) 1 UNIT/0.01 ML (CHARGE PER UNIT) SC SCH ×3 (05:06→17:53)
[2020-01-30] MEDS: fentaNYL INJECTION 1,250 MCG in NS (IVPB) 250 ML IV SCH ×2 (05:16→15:27)
--- NOTE | 2020-01-30 06:14 | Pulmonary Progress Note ---
Subjective Time Seen by a Provider: 06:14 Subjective/Events-last exam Pt appears to be doing better. Sepsis Event Evaluation Height, Weight, BMI Height: '" Weight: lbs. oz. kg; 30.00 BMI Method: Exam Exam Vital Signs Date Time Temp Pulse Resp B/P (MAP) Pulse Ox O2 Delivery O2 Flow Rate FiO2 01/30/20 05:07 117/69 01/30/20 04:00 96 Mechanical Ventilator 50 01/30/20 04:00 53 22 110/65 (80) 98 Mechanical Ventilator 50.00 01/30/20 03:00 52 28 140/63 (88) 97 Mechanical Ventilator 50.00 01/30/20 02:25 53 28 99 50 01/30/20 02:00 51 28 131/73 (92) 98 Mechanical Ventilator 50.00 01/30/20 01:04 55 133/77 01/30/20 01:00 54 01/30/20 01:00 54 28 115/72 (86) 100 Mechanical Ventilator 50.00 01/30/20 00:00 96 Mechanical Ventilator 50 01/30/20 00:00 52 27 148/75 (99) 98 Mechanical Ventilator 50.00 01/29/20 23:00 53 27 131/75 (93) 98 Mechanical Ventilator 50.00 01/29/20 22:30 56 28 97 50 01/29/20 22:00 51 28 115/61 (79) 98 Mechanical Ventilator 50.00 01/29/20 21:00 54 27 124/59 (80) 98 Mechanical Ventilator 50.00 01/29/20 20:01 120/62 01/29/20 20:00 96 Mechanical Ventilator 50 01/29/20 20:00 37.0 52 28 143/69 (93) 97 Mechanical Ventilator 50.00 01/29/20 19:00 53 27 135/64 (87) 97 Mechanical Ventilator 50.00 01/29/20 19:00 53 01/29/20 18:20 53 28 96 50 01/29/20 18:00 50 27 92/59 (70) 96 Mechanical Ventilator 50.00 01/29/20 17:00 56 27 135/68 (90) 96 Mechanical Ventilator 50.00 01/29/20 16:00 96 Mechanical Ventilator 50 01/29/20 16:00 58 27 128/70 (89) 93 Mechanical Ventilator 50.00 01/29/20 15:49 60 132/66 01/29/20 15:27 60 28 92 50 01/29/20 15:27 36.7 01/29/20 15:00 56 28 144/74 (97) 97 Mechanical Ventilator 50.00 01/29/20 14:00 61 27 96/62 (73) 99 Mechanical Ventilator 50.00 01/29/20 13:00 61 28 119/61 (80) 98 Mechanical Ventilator 50.00 01/29/20 12:38 60 01/29/20 12:30 37.0 01/29/20 12:00 96 Mechanical Ventilator 50 01/29/20 12:00 67 28 135/61 (85) 96 Mechanical Ventilator 50.00 01/29/20 11:57 56 153/76 01/29/20 11:07 61 28 97 50 01/29/20 11:00 63 22 103/62 (76) 97 Mechanical Ventilator 50.00 01/29/20 10:00 61 30 133/76 (95) 98 Mechanical Ventilator 50.00 01/29/20 09:00 60 27 127/77 (94) 96 Mechanical Ventilator 50.00 01/29/20 08:00 59 27 125/71 (89) 96 Mechanical Ventilator 50.00 01/29/20 08:00 96 Mechanical Ventilator 50 01/29/20 07:57 60 120/74 01/29/20 07:27 59 28 97 50 01/29/20 07:00 64 28 129/69 (89) 95 Mechanical Ventilator 50.00 01/29/20 07:00 36.2 01/29/20 06:33 63 I & O 01/30/20 07:00 Intake Total 3245 ml Output Total 5675 ml Balance -2430 ml Height & Weight Height: '" Weight: lbs. oz. kg; 30.00 BMI Method: General Appearance: No Apparent Distress, Obese, Other (Intubated and sedated) HEENT: Other (ET/OG in place) Respiratory: Lungs Clear, No Respiratory Distress, Decreased Breath Sounds, Other (Intubated and mechanically ventilated) Cardiovascular: Regular Rate, Rhythm, No Edema, No Murmur Capillary Refill: Less Than 3 Seconds Gastrointestinal: normal bowel sounds, soft Extremity: Normal Inspection, No Pedal Edema Neurologic/Psychiatric: Other (Sedated) Skin: Normal Color, Warm/Dry Results Lab Laboratory Tests 01/29/20 03:22 01/30/20 03:26 Assessment/Plan Assessment/Plan Acute respiratory failure with ARDS Pa02/Fi02 ratio 135 -Change vent to 28/470/8 and continue to titrate Fi02 down. If unable to keep Sp02 <60% will increase PEEP. -Decrease Peep to 5 -Possible weaning trial tomorrow morning. Will reevaluate tomorrow. -Lasix 60mg IV x 1 -Conservative fluid management secondary to ARDS -Continue Remdesivir. -Monitor liver function -Decadron change to daily -Continue Zosyn -MRSA swab is neg. PNA with probable MSSA -Improving leukocytosis with Zosyn and neg MRSA nasal swab -Continue to monitor -Pt has copious amounts of sputum -repeat sputum C&S -Repeat PCT COVID + Hypotension -- Improved -IVF with LR decrease to 30cc/hr -Levophed gtt STEFANI FORDE DO Jan 30, 2020 06:14
[2020-01-30] MEDS: PANTOPRAZOLE 40 MG (PROTONIX) VIAL IV SCH (08:27)
[2020-01-30] MEDS ORDERED: FUROSEMIDE 40 MG/4 ML INJ (LASIX) IVP ONE (09:00)
[2020-01-30] MEDS: LACTATED RINGERS 1,000 ML IV SCH ×2 (10:11→17:54)
--- NOTE | 2020-01-30 14:07 | NUR ---
"RD ASSESSMENT Est kcal needs: 5352-5490 kcal | 15-18 kcal/kg Est Pro needs: 72-120 g Pro | 0.6-1.0 g Pro/kg Note pt is currently receiving TF of: [employer] at rate of 45ml/hr, with H2O flushes of 350ml q4h. This provides 1620 kcal (13 kcal/kg); 68 g Pro (0.6 g Pro/kg); and 2948ml free water (with flushes). This current TF provides 90% of pt's needs. Would recommend continuation of current TF at this time. Will continue to follow and reassess as pt needs, intake, and status change. Emerson Dunaway MS, RD, LD [phone]"
[2020-01-30] MEDS: DexMEDEtomidine 250 ML DRIP 250 ML IV SCH (15:27)
[2020-01-30] MEDS: ENOXAPARIN 300 MG/3 ML (LOVENOX) MULTI-DOSE VIAL SQ SCH (17:53)
[2020-01-31] VITALS (31 sets, daily range): BP systolic 92–175; BP diastolic 58–84
[2020-01-31] MEDS: fentaNYL INJECTION 1,250 MCG in NS (IVPB) 250 ML IV SCH ×3 (00:29→21:19)
[2020-01-31] MEDS: NOREPINEPHRINE 4 MG/250 ML 250 ML IV SCH ×5 (00:30→22:17)
[2020-01-31] MEDS: inSUlin ASPART (NovoLOG) 1 UNIT/0.01 ML (CHARGE PER UNIT) SC SCH ×5 (00:30→22:34)
[2020-01-31] MEDS: PROPOFOL DRIP (ICU) 100 ML IV SCH ×6 (02:17→22:25)
[2020-01-31 02:20] LABS: ABG BASE EXCESS 3.5 MMOL/L (-2.5-2.5); ABG OXYGEN SATURATION 67 % (94-100); ABG PCO2 44 MMHG (35-45); ABG PH 7.42 (7.37-7.43); ABG PO2 46 MMHG (79-93); ABG TCO2 28.7 MMOL/L (21.0-31.0)
[2020-01-31 02:21] LABS: ALLENS TEST ART LINE; INSPIRED O2 25%; VENTILATOR YES
[2020-01-31 02:25] LABS: BASOPHILS % (AUTO) 0 % (0-10); EOSINOPHILS # (AUTO) 0.3 10^3/uL (0.0-0.3); EOSINOPHILS % (AUTO) 1 % (0-10); HEMATOCRIT 36 % (40-54); HEMOGLOBIN 11.7 G/DL (13.3-17.7); LYMPHOCYTES # (AUTO) 1.8 X 10^3 (1.0-4.0); LYMPHOCYTES % (AUTO) 10 % (12-44); MEAN CORPUSCULAR HEMOGLOBIN 30 PG (25-34); MEAN CORPUSCULAR HGB CONC 33 G/DL (32-36); MEAN CORPUSCULAR VOLUME 92 FL (80-99); MEAN PLATELET VOLUME 10.8 FL (7.4-10.4); MONOCYTES # (AUTO) 2.2 X 10^3 (0.0-1.0); MONOCYTES % (AUTO) 12 % (0-12); NEUTROPHILS # (AUTO) 14.4 X 10^3 (1.8-7.8); NEUTROPHILS % (AUTO) 77 % (42-75); PLATELET COUNT 395 10^3/uL (130-400); RED CELL DISTRIBUTION WIDTH 13.9 % (10.0-14.5); WHITE BLOOD COUNT 18.6 10^3/uL (4.3-11.0)
[2020-01-31 02:32] LABS: ALBUMIN 2.3 GM/DL (3.2-4.5); CHLORIDE 107 MMOL/L (98-107); POTASSIUM 3.8 MMOL/L (3.6-5.0); SODIUM 138 MMOL/L (135-145)
[2020-01-31 02:33] LABS: CALCIUM 7.6 MG/DL (8.5-10.1)
[2020-01-31 02:34] LABS: GLUCOSE 98 MG/DL (70-105); TOTAL PROTEIN 5.3 GM/DL (6.4-8.2)
[2020-01-31 02:35] LABS: CARBON DIOXIDE 22 MMOL/L (21-32)
[2020-01-31 02:36] LABS: BILIRUBIN,TOTAL 0.3 MG/DL (0.1-1.0)
[2020-01-31 02:37] LABS: ALKALINE PHOSPHATASE 77 U/L (40-136); PHOSPHORUS 3.1 MG/DL (2.3-4.7)
[2020-01-31 02:38] LABS: CREATININE SERUM 0.79 MG/DL (0.60-1.30); GFR ESTIMATED > 60
[2020-01-31 02:39] LABS: BUN/CREATININE RATIO 38
[2020-01-31 02:41] LABS: ALANINE AMINOTRANSFERASE 44 U/L (0-55); MAGNESIUM 2.1 MG/DL (1.6-2.4)
[2020-01-31] MEDS: ENOXAPARIN 300 MG/3 ML (LOVENOX) MULTI-DOSE VIAL SQ SCH ×2 (05:50→17:28)
[2020-01-31] MEDS: [UNRECOGNIZED DRUG - OTHER] IV SCH ×2 (05:51→09:31)
[2020-01-31] MEDS: POTASSIUM CL 10MEQ/50ML IVPB 50 ML IV SCH ×5 (05:54→14:00)
[2020-01-31] MEDS: MAGNESIUM 1 GM/100 ML IVPB 100 ML IV SCH (05:54)
[2020-01-31] MEDS: KCL 20 MEQ TAB (K-DUR) PO SCH (05:54)
--- NOTE | 2020-01-31 06:31 | Pulmonary Progress Note ---
Subjective Time Seen by a Provider: 06:27 Subjective/Events-last exam PT is requiring more oxygen. Sepsis Event Evaluation Height, Weight, BMI Height: '" Weight: lbs. oz. kg; 30.00 BMI Method: Exam Exam Vital Signs Date Time Temp Pulse Resp B/P (MAP) Pulse Ox O2 Delivery O2 Flow Rate FiO2 01/31/20 06:00 81 134/67 (89) 90 Mechanical Ventilator 90.00 01/31/20 05:00 78 28 128/63 (84) 91 Mechanical Ventilator 90.00 01/31/20 04:00 79 151/71 (97) 94 Mechanical Ventilator 90.00 01/31/20 04:00 90 Mechanical Ventilator 90 01/31/20 04:00 37.8 01/31/20 03:17 69 28 111/63 (79) 92 Mechanical Ventilator 90.00 01/31/20 03:00 66 30 97/58 (71) 90 Mechanical Ventilator 50.00 01/31/20 02:17 125/65 01/31/20 02:04 76 31 115/64 (81) 94 Mechanical Ventilator 45.00 01/31/20 02:01 79 32 94 25 01/31/20 01:00 72 27 102/59 (73) 93 Mechanical Ventilator 45.00 01/31/20 01:00 72 01/31/20 00:00 97 Mechanical Ventilator 25 01/31/20 00:00 75 27 97/59 (72) 96 Mechanical Ventilator 45.00 01/30/20 23:14 38.0 01/30/20 23:00 85 36 167/76 (106) 97 Mechanical Ventilator 45.00 01/30/20 22:17 158/68 01/30/20 22:00 70 28 110/65 (80) 93 Mechanical Ventilator 45.00 01/30/20 21:19 60 28 93 25 01/30/20 21:00 71 21 126/66 (86) 93 Mechanical Ventilator 45.00 01/30/20 20:00 71 28 112/58 (76) 94 Mechanical Ventilator 45.00 01/30/20 20:00 97 Mechanical Ventilator 25 01/30/20 19:41 37.1 67 28 106/60 (75) 93 Mechanical Ventilator 25.00 01/30/20 19:03 70 28 104/50 (68) 98 Mechanical Ventilator 45.00 01/30/20 19:00 70 01/30/20 18:36 60 28 93 25 01/30/20 18:00 62 27 125/59 (81) 1 Mechanical Ventilator 45.00 01/30/20 17:54 58 143/65 01/30/20 17:00 60 27 103/58 (73) 98 Mechanical Ventilator 45.00 01/30/20 16:14 97 Mechanical Ventilator 25 01/30/20 16:00 63 34 93/56 (68) 99 Mechanical Ventilator 45.00 01/30/20 15:00 64 28 94/58 (70) 99 Mechanical Ventilator 45.00 01/30/20 14:00 63 28 127/62 (83) 100 Mechanical Ventilator 45.00 01/30/20 13:45 61 30 93 30 01/30/20 13:00 65 27 101/65 (77) 98 Mechanical Ventilator 45.00 01/30/20 13:00 62 01/30/20 12:17 36.6 01/30/20 12:17 97 Mechanical Ventilator 30 01/30/20 12:00 57 25 114/71 (85) 98 Mechanical Ventilator 45.00 01/30/20 11:00 56 27 103/52 (69) 96 Mechanical Ventilator 45.00 01/30/20 10:14 48 28 100 40 01/30/20 10:00 51 28 123/71 (88) 100 Mechanical Ventilator 45.00 01/30/20 09:00 Mechanical Ventilator 45.00 01/30/20 09:00 50 28 145/62 (89) 98 Mechanical Ventilator 45.00 01/30/20 08:42 50 113/64 01/30/20 08:15 100 Mechanical Ventilator 45 01/30/20 08:15 36.6 01/30/20 08:00 55 28 107/67 (80) 100 Mechanical Ventilator 50.00 01/30/20 07:00 51 56 122/69 (86) 99 Mechanical Ventilator 50.00 01/30/20 06:45 51 28 98 50 01/30/20 06:43 54 I & O 01/31/20 07:00 Intake Total 4655 ml Output Total 5900 ml Balance -1245 ml Height & Weight Height: '" Weight: lbs. oz. kg; 30.00 BMI Method: General Appearance: No Apparent Distress, Obese, Other (Intubated and sedated) HEENT: Other (ET/OG in place) Respiratory: Lungs Clear, No Respiratory Distress, Decreased Breath Sounds, Other (Intubated and mechanically ventilated) Cardiovascular: Regular Rate, Rhythm, No Edema, No Murmur Capillary Refill: Less Than 3 Seconds Gastrointestinal: normal bowel sounds, soft Extremity: Normal Inspection, No Pedal Edema Neurologic/Psychiatric: Other (Sedated) Skin: Normal Color, Warm/Dry Results Lab Laboratory Tests 01/30/20 03:26 01/31/20 02:07 Assessment/Plan Assessment/Plan Acute respiratory failure with ARDS-- Pt was doing better yesterday however appears much worse today. -Increase PEEP to 12 -give lasix 40mg IV X 1 -Check PCT and BNP -D/C central line and culture tip -Prone pt for 14-16hrs/day -Hold TF while in prone position -Conservative fluid management secondary to ARDS -Continue Remdesivir. -Monitor liver function -Decadron -Continue Zosyn -MRSA swab is neg. PNA -Sputum cultures is showing MSSA and yeast -Pt is much worse today then yesterday. He has been getting Zosyn however it auto d/c'd yesterday -I am going to restart Zosyn, add Vancomycin and eraxis -D/C femoral central line and culture tip -repeat delgado cultures -Pt has copious amounts of sputum -repeat sputum C&S COVID + Hypotension -IVF with LR decrease to 30cc/hr -Levophed gtt STEFANI FORDE DO Jan 31, 2020 06:31
[2020-01-31] MEDS ORDERED: PHARMACY TO DOSE IV SCH (06:45)
[2020-01-31] MEDS ORDERED: VANCOMYCIN INJECTION 1,000 MG in NS (IVPB) 250 ML IV SCH (06:45)
--- NOTE | 2020-01-31 07:38 | NUR ---
PHARMACY TO DOSE VANCOMYCIN: PATIENT WEIGHT 118.3 KG, SCr 0.79, CrCl 137.5, BMI 36.5; 20MG/KG X 118.3KG = 2366 ~ 2250 MG LOADING DOSE 01/30 @ 0800; 15MG/KG X 118.3KG = 1774.5 ~ 1750MG Q12H MAINT DOSE STARTING 01/30 @ 2000; VANCOMYCIN TROUGH DUE 02/01 @ 1900. IF TROUGH IS > 20 HOLD DOSE AND CONTACT PHARMACY FOR ADJUSTMENTS.
--- NOTE | 2020-01-31 07:57 | Diagnostic Imaging Report ---
INDICATION: COVID Portable chest shows the heart size and vascularity to be upper normal. There are bilateral infiltrates. There may be a small effusion on the left. No pneumothorax is evident. The ET tube and OG tube remain in place. IMPRESSION: There are persistent bilateral infiltrates similar to the 01/29/2020 study. Dictated by: Dictated on workstation # [id number]
[2020-01-31] MEDS ORDERED: VANCOMYCIN INJECTION 2,250 MG in NS IV 500 ML 500 ML IV NR (08:00)
[2020-01-31] MEDS ORDERED: FUROSEMIDE 40 MG/4 ML INJ (LASIX) IVP ONE (08:15)
[2020-01-31] MEDS ORDERED: ANIDULAFUNGIN INJECTION 200 MG in NS (IVPB) 250 ML IV ONE (08:15)
[2020-01-31] MEDS: MIDAZOLAM INJECTION FOR DRIPS 50 MG in NS (IVPB) 90 ML IV SCH ×2 (09:12→21:21)
[2020-01-31] MEDS: PIPERACILLIN/TAZOBACTAM (BULK) 4.5 GM in NS (IVPB) 100 ML IV SCH ×3 (09:34→22:26)
[2020-01-31] MEDS: PANTOPRAZOLE 40 MG (PROTONIX) VIAL IV SCH (09:34)
[2020-01-31] MEDS: DexMEDEtomidine 250 ML DRIP 250 ML IV SCH (12:00)
--- NOTE | 2020-01-31 14:12 | NUR ---
"RD FOLLOW-UP Est kcal needs: 4528-5038 kcal | 15-18 kcal/kg Est Pro needs: 72-120 g Pro | 0.6-1.0 g Pro/kg Note pt is currently receiving TF of: Pulmocare at rate of 45ml/hr, with H2O flushes of 350ml q4h. This provides 1620 kcal (13 kcal/kg); 68 g Pro (0.6 g Pro/kg); and 2948ml free water (with flushes). This current TF provides 90% of pt's needs. Would recommend continuation of current TF at this time. Will continue to follow and reassess as pt needs, intake, and status change. Emerson Dunaway, MS, RD, LD [phone]"
[2020-01-31 19:19] LABS: BILIRUBIN,URINE NEGATIVE (NEGATIVE); CLARITY,URINE CLEAR; COLOR,URINE YELLOW; GLUCOSE, URINE (UA) NEGATIVE (NEGATIVE); KETONES,URINE NEGATIVE (NEGATIVE); LEUKOCYTE ESTERASE ,URINE NEGATIVE (NEGATIVE); NITRITE,URINE NEGATIVE (NEGATIVE); PROTEIN,URINE NEGATIVE (NEGATIVE)
[2020-01-31 19:25] LABS: BACTERIA,URINE NEGATIVE /HPF; SQUAMOUS EPITHELIAL CELL,UR RARE /HPF
[2020-01-31] MEDS: VANCOMYCIN 1,750 MG/NS 500 ML IVPB IV SCH ×2 (19:48)
[2020-02-01] VITALS (30 sets, daily range): BP systolic 92–161; BP diastolic 49–78
[2020-02-01] MEDS: PROPOFOL DRIP (ICU) 100 ML IV SCH ×8 (00:49→22:55)
[2020-02-01 02:40] LABS: ABG BASE EXCESS 2.1 MMOL/L (-2.5-2.5); ABG OXYGEN SATURATION 97 % (94-100); ABG PCO2 47 MMHG (35-45); ABG PH 7.37 (7.37-7.43); ABG PO2 97 MMHG (79-93); ABG TCO2 28.5 MMOL/L (21.0-31.0)
[2020-02-01 02:43] LABS: BASOPHILS % (AUTO) 0 % (0-10); EOSINOPHILS # (AUTO) 0.2 10^3/uL (0.0-0.3); EOSINOPHILS % (AUTO) 2 % (0-10); HEMATOCRIT 33 % (40-54); HEMOGLOBIN 10.5 G/DL (13.3-17.7); LYMPHOCYTES # (AUTO) 0.9 X 10^3 (1.0-4.0); LYMPHOCYTES % (AUTO) 7 % (12-44); MEAN CORPUSCULAR HEMOGLOBIN 30 PG (25-34); MEAN CORPUSCULAR HGB CONC 32 G/DL (32-36); MEAN CORPUSCULAR VOLUME 94 FL (80-99); MEAN PLATELET VOLUME 10.4 FL (7.4-10.4); MONOCYTES # (AUTO) 1.1 X 10^3 (0.0-1.0); MONOCYTES % (AUTO) 9 % (0-12); NEUTROPHILS # (AUTO) 9.5 X 10^3 (1.8-7.8); NEUTROPHILS % (AUTO) 82 % (42-75); PLATELET COUNT 338 10^3/uL (130-400); RED CELL DISTRIBUTION WIDTH 14.1 % (10.0-14.5); WHITE BLOOD COUNT 11.7 10^3/uL (4.3-11.0)
[2020-02-01 02:47] LABS: ALLENS TEST YES-POS
[2020-02-01 02:48] LABS: INSPIRED O2 AC; PATIENT TEMP 36.3; VENTILATOR YES
[2020-02-01 03:00] LABS: ALANINE AMINOTRANSFERASE 55 U/L (0-55); ALBUMIN 2.1 GM/DL (3.2-4.5); ALKALINE PHOSPHATASE 67 U/L (40-136); BILIRUBIN,TOTAL 0.4 MG/DL (0.1-1.0); BUN/CREATININE RATIO 32; CALCIUM 7.7 MG/DL (8.5-10.1); CARBON DIOXIDE 22 MMOL/L (21-32); CHLORIDE 108 MMOL/L (98-107); CREATININE SERUM 0.71 MG/DL (0.60-1.30); GFR ESTIMATED > 60; GLUCOSE 94 MG/DL (70-105); MAGNESIUM 2.5 MG/DL (1.6-2.4); PHOSPHORUS 3.4 MG/DL (2.3-4.7); SODIUM 140 MMOL/L (135-145)
[2020-02-01] MEDS: MAGNESIUM 1 GM/100 ML IVPB 100 ML IV SCH (03:06)
[2020-02-01] MEDS: POTASSIUM CL 10MEQ/50ML IVPB 50 ML IV SCH ×5 (03:06→11:39)
[2020-02-01] MEDS: KCL 20 MEQ TAB (K-DUR) PO SCH (03:07)
[2020-02-01] MEDS: inSUlin ASPART (NovoLOG) 1 UNIT/0.01 ML (CHARGE PER UNIT) SC SCH ×4 (03:07→22:58)
[2020-02-01] MEDS: ENOXAPARIN 300 MG/3 ML (LOVENOX) MULTI-DOSE VIAL SQ SCH ×2 (05:08→17:20)
[2020-02-01] MEDS: PIPERACILLIN/TAZOBACTAM (BULK) 4.5 GM in NS (IVPB) 100 ML IV SCH ×3 (05:09→22:56)
--- NOTE | 2020-02-01 05:40 | Pulmonary Progress Note ---
Subjective Time Seen by a Provider: 05:34 Subjective/Events-last exam No complications noted. Sepsis Event Evaluation Height, Weight, BMI Height: '" Weight: lbs. oz. kg; 30.00 BMI Method: Focused Exam Lactate Level 01/31/20 06:54: Lactic Acid Level 0.49L Exam Exam Vital Signs Date Time Temp Pulse Resp B/P (MAP) Pulse Ox O2 Delivery O2 Flow Rate FiO2 02/01/20 05:00 60 14 109/64 (79) 95 Mechanical Ventilator 70.00 02/01/20 04:00 61 26 110/65 (80) 95 Mechanical Ventilator 70.00 02/01/20 03:18 36.6 Mechanical Ventilator 70.00 02/01/20 03:16 102/61 02/01/20 03:04 94 Mechanical Ventilator 80 02/01/20 03:00 60 23 104/61 (75) 96 Mechanical Ventilator 80.00 02/01/20 02:25 62 28 95 80 02/01/20 02:00 59 28 104/64 (77) 96 Mechanical Ventilator 80.00 02/01/20 01:00 60 02/01/20 01:00 59 28 116/68 (84) 97 Mechanical Ventilator 80.00 02/01/20 00:49 107/65 02/01/20 00:00 59 28 110/67 (81) 97 Mechanical Ventilator 80.00 01/31/20 23:44 Mechanical Ventilator 80.00 01/31/20 23:12 94 Mechanical Ventilator 90 01/31/20 23:00 59 28 110/67 (81) 97 Mechanical Ventilator 90.00 01/31/20 22:30 36.0 Mechanical Ventilator 90.00 01/31/20 22:25 112/67 01/31/20 22:00 61 38 130/75 (93) 95 Mechanical Ventilator 95.00 01/31/20 21:36 56 28 96 95 01/31/20 21:21 139/77 01/31/20 21:00 62 28 131/77 (95) 96 Mechanical Ventilator 95.00 01/31/20 20:00 90 Mechanical Ventilator 95 01/31/20 20:00 61 27 133/80 (97) 95 Mechanical Ventilator 95.00 01/31/20 19:53 37.0 Mechanical Ventilator 95.00 01/31/20 19:50 163/85 7/1/20 19:00 58 21 112/72 (85) 96 Mechanical Ventilator 90.00 01/31/20 19:00 60 01/31/20 18:43 56 28 96 95 01/31/20 18:00 56 28 122/76 (91) 95 Mechanical Ventilator 90.00 01/31/20 17:00 57 27 108/67 (81) 95 Mechanical Ventilator 90.00 01/31/20 16:31 58 159/80 01/31/20 16:00 90 Mechanical Ventilator 90 01/31/20 16:00 56 28 121/75 (90) 93 Mechanical Ventilator 90.00 01/31/20 15:00 58 27 115/72 (86) 94 Mechanical Ventilator 90.00 01/31/20 14:00 58 28 110/68 (82) 93 Mechanical Ventilator 90.00 01/31/20 13:31 55 28 93 95 01/31/20 13:05 58 01/31/20 13:00 57 28 138/68 (91) 93 Mechanical Ventilator 90.00 01/31/20 12:56 59 125/69 01/31/20 12:00 90 Mechanical Ventilator 90 01/31/20 12:00 60 27 115/69 (84) 93 Mechanical Ventilator 90.00 01/31/20 11:00 63 28 111/70 (84) 95 Mechanical Ventilator 90.00 01/31/20 10:34 62 28 95 95 01/31/20 10:00 62 22 117/65 (82) 96 Mechanical Ventilator 90.00 01/31/20 09:30 67 01/31/20 09:12 71 129/78 01/31/20 09:00 71 14 131/80 (97) 95 Mechanical Ventilator 90.00 01/31/20 08:00 73 31 175/84 (114) 94 Mechanical Ventilator 90.00 01/31/20 08:00 90 Mechanical Ventilator 90 01/31/20 07:00 76 01/31/20 07:00 79 31 141/68 (92) 92 Mechanical Ventilator 90.00 01/31/20 07:00 36.9 01/31/20 06:37 79 28 92 90 01/31/20 06:00 81 134/67 (89) 90 Mechanical Ventilator 90.00 I & O 02/01/20 07:00 Intake Total 2152.5 ml Output Total 4700 ml Balance -2547.5 ml Height & Weight Height: '" Weight: lbs. oz. kg; 30.00 BMI Method: General Appearance: No Apparent Distress, Obese, Other (Intubated and sedated) HEENT: Other (ET/OG in place) Respiratory: Lungs Clear, No Respiratory Distress, Decreased Breath Sounds, Other (Intubated and mechanically ventilated) Cardiovascular: Regular Rate, Rhythm, No Edema, No Murmur Capillary Refill: Less Than 3 Seconds Gastrointestinal: normal bowel sounds, soft Extremity: Normal Inspection, No Pedal Edema Neurologic/Psychiatric: Other (Sedated) Skin: Normal Color, Warm/Dry Results Lab Laboratory Tests 01/31/20 02:07 02/01/20 02:22 Assessment/Plan Assessment/Plan Acute respiratory failure with ARDS-- Pt is doing better today. No fevers - lasix 40mg IV daily -Check PCT and BNP -D/C central line and culture tip -Prone pt for 14-16hrs/day -Hold TF while in prone position -Conservative fluid management secondary to ARDS -Still requiring 70% Fi02 and Sp02 is 91% -Increase PEEP to 14 -s/p Remdesivir tx -Decadron -MRSA swab is neg. PNA and COVID + -Sputum cultures is showing MSSA and yeast -Pt is much worse today then yesterday. He has been getting Zosyn however it auto d/c'd yesterday -Continue Zosyn, Vancomycin and eraxis -D/C femoral central line and culture tip -repeat delgado cultures -Pt has copious amounts of sputum -repeat sputum C&S STEFANI FORDE DO Feb 01, 2020 05:39
[2020-02-01] MEDS: NOREPINEPHRINE 4 MG/250 ML 250 ML IV SCH ×3 (05:59→19:20)
[2020-02-01] MEDS: VANCOMYCIN 1,750 MG/NS 500 ML IVPB IV SCH ×2 (08:34)
[2020-02-01] MEDS: FUROSEMIDE 40 MG/4 ML INJ (LASIX) IVP SCH (08:49)
[2020-02-01] MEDS: PANTOPRAZOLE 40 MG (PROTONIX) VIAL IV SCH (08:49)
[2020-02-01] MEDS: [UNRECOGNIZED DRUG - OTHER] IV SCH (08:50)
[2020-02-01] MEDS: ANIDULAFUNGIN INJECTION 100 MG in NS (IVPB) 100 ML IV SCH (08:50)
--- NOTE | 2020-02-01 09:53 | Progress Note - Hospitalist ---
Subjective HPI/CC On Admission Date Seen by Provider: Feb 01, 2020 Time Seen by Provider: 09:51 Subjective/Events-last exam Pt is Focused Exam Lactate Level 01/31/20 06:54: Lactic Acid Level 0.49L Objective Exam Vital Signs Vital Signs Date Time Temp Pulse Resp B/P (MAP) Pulse Ox O2 Delivery O2 Flow Rate FiO2 02/01/20 18:00 78 14 117/57 (77) Mechanical Ventilator 70.00 02/01/20 17:00 96 02/01/20 14:22 80 02/01/20 03:18 36.6 Capillary Refill : Less Than 3 Seconds Results/Procedures Lab Laboratory Tests 02/01/20 02:22 Patient resulted labs reviewed. Imaging: Reviewed Imaging Report Clinical Quality Measures DVT/VTE Risk/Contraindication: Risk Factor Score Per Nursin RFS Level Per Nursing on Admit: 4+=Very High NOEMI LUTHER MD Feb 01, 2020 09:53
--- NOTE | 2020-02-01 10:02 | Progress Note - Hospitalist ---
Subjective HPI/CC On Admission Date Seen by Provider: Feb 01, 2020 Time Seen by Provider: 09:55 Subjective/Events-last exam Pt is sedated and on a vent. RN at bedside. States they attempted to wean sedation this morning and he did not tolerate it well. Was very tachypneic and agitated. Focused Exam Lactate Level 01/31/20 06:54: Lactic Acid Level 0.49L Objective Exam Vital Signs Vital Signs Date Time Temp Pulse Resp B/P (MAP) Pulse Ox O2 Delivery O2 Flow Rate FiO2 02/01/20 09:50 70 31 91 80 02/01/20 09:24 122/70 02/01/20 09:00 Mechanical Ventilator 70.00 02/01/20 03:18 36.6 Capillary Refill : Less Than 3 Seconds General Appearance: Other (sedated, on vent) Respiratory: Crackles, Decreased Breath Sounds, Other (on vent) Cardiovascular: Regular Rate, Rhythm, No Murmur Gastrointestinal: Normal Bowel Sounds, Soft Genital/Rectal: Other (valentin in place) Extremity: No Calf Tenderness, No Pedal Edema Neurologic/Psychiatric: Other (sedated, appears comfortable) Results/Procedures Lab Laboratory Tests 02/01/20 02:22 Patient resulted labs reviewed. Imaging: Reviewed Imaging Report Assessment/Plan Assessment and Plan Assess & Plan/Chief Complaint Acute hypoxemic respiratory failure COVID19 ARDS Secondary pneumonia s/p cardiac arrest in ER Continues to need high ventilator support PEEP 14, FiO2 70% Pulm/TeleICU consulted, appreciate assistance Currently n Autumnn, Vanc, Eraxis Completed Remdesivir Still on decadron Lasix given this AM Continue to prone Continue Lovenox Diagnosis/Problems Diagnosis/Problems (1) Acute respiratory failure Qualifiers: Respiratory failure complication: hypoxia Qualified Codes: J96.01 - Acute respiratory failure with hypoxia (2) Cardiac arrest Status: Acute (3) COVID-19 Status: Acute (4) Elevated LFTs Status: Resolved Resolution Date/Time: 01/28/20 @ 11:25 (5) Elevated d-dimer Status: Acute (6) Shock Status: Resolved Resolution Date/Time: 01/27/20 @ 10:41 (7) ARDS (adult respiratory distress syndrome) Status: Acute (8) Pneumonia Clinical Quality Measures DVT/VTE Risk/Contraindication: Risk Factor Score Per Nursin RFS Level Per Nursing on Admit: 4+=Very High HOMA,NOEMI M MD Feb 01, 2020 10:02
[2020-02-01] MEDS: LACTATED RINGERS 1,000 ML IV SCH (10:31)
[2020-02-01] MEDS: fentaNYL INJECTION 1,250 MCG in NS (IVPB) 250 ML IV SCH ×2 (11:56→22:55)
[2020-02-01] MEDS: MIDAZOLAM INJECTION FOR DRIPS 50 MG in NS (IVPB) 90 ML IV SCH (11:57)
--- NOTE | 2020-02-01 14:26 | Diagnostic Imaging Report ---
INDICATION: PICC line placement. Time of exam 2:12 PM Correlation is made with prior chest one day earlier. ET tube has tip at the level of the clavicular heads. NG tube passes below the diaphragm. Right upper extremity PICC line appears to have the tip in good position at the SVC right atrial junction. Bilateral airspace pulmonary infiltrates do appear to be improved since yesterday. No effusion or pneumothorax is detected. IMPRESSION: 1. Satisfactory PICC line placement. 2. Bilateral pulmonary infiltrates showing mild improvement when compared with yesterday's exam. Dictated by: Dictated on workstation # [id number]
[2020-02-01] MEDS: DexMEDEtomidine 250 ML DRIP 250 ML IV SCH (15:08)
[2020-02-02] VITALS (30 sets, daily range): BP systolic 92–194; BP diastolic 53–79
[2020-02-02] MEDS: PROPOFOL DRIP (ICU) 100 ML IV SCH ×6 (01:55→20:16)
[2020-02-02] MEDS: LACTATED RINGERS 1,000 ML IV SCH (01:59)
[2020-02-02 02:17] LABS: BASOPHILS % (AUTO) 0 % (0-10); EOSINOPHILS # (AUTO) 0.1 10^3/uL (0.0-0.3); EOSINOPHILS % (AUTO) 1 % (0-10); HEMATOCRIT 33 % (40-54); HEMOGLOBIN 10.6 G/DL (13.3-17.7); LYMPHOCYTES # (AUTO) 0.6 X 10^3 (1.0-4.0); LYMPHOCYTES % (AUTO) 5 % (12-44); MEAN CORPUSCULAR HEMOGLOBIN 30 PG (25-34); MEAN CORPUSCULAR HGB CONC 32 G/DL (32-36); MEAN CORPUSCULAR VOLUME 94 FL (80-99); MEAN PLATELET VOLUME 10.4 FL (7.4-10.4); MONOCYTES # (AUTO) 1.3 X 10^3 (0.0-1.0); MONOCYTES % (AUTO) 10 % (0-12); NEUTROPHILS # (AUTO) 11.2 X 10^3 (1.8-7.8); NEUTROPHILS % (AUTO) 84 % (42-75); PLATELET COUNT 344 10^3/uL (130-400); RED CELL DISTRIBUTION WIDTH 13.9 % (10.0-14.5); WHITE BLOOD COUNT 13.2 10^3/uL (4.3-11.0)
[2020-02-02 02:20] LABS: ABG BASE EXCESS 3.1 MMOL/L (-2.5-2.5); ABG OXYGEN SATURATION 99 % (94-100); ABG PCO2 56 MMHG (35-45); ABG PO2 136 MMHG (79-93); ABG TCO2 30.6 MMOL/L (21.0-31.0)
[2020-02-02 02:22] LABS: ABG PH 7.33 (7.37-7.43); ALLENS TEST POSITIVE; INSPIRED O2 75; PATIENT TEMP 36.8; VENTILATOR YES
[2020-02-02 02:29] LABS: ALBUMIN 2.1 GM/DL (3.2-4.5); CHLORIDE 108 MMOL/L (98-107); POTASSIUM 4.2 MMOL/L (3.6-5.0); SODIUM 141 MMOL/L (135-145)
[2020-02-02 02:31] LABS: CALCIUM 7.7 MG/DL (8.5-10.1)
[2020-02-02 02:32] LABS: GLUCOSE 97 MG/DL (70-105); TOTAL PROTEIN 5.1 GM/DL (6.4-8.2)
[2020-02-02 02:33] LABS: CARBON DIOXIDE 25 MMOL/L (21-32)
[2020-02-02 02:34] LABS: BILIRUBIN,TOTAL 0.6 MG/DL (0.1-1.0)
[2020-02-02 02:35] LABS: ALKALINE PHOSPHATASE 60 U/L (40-136); PHOSPHORUS 2.8 MG/DL (2.3-4.7)
[2020-02-02 02:36] LABS: CREATININE SERUM 0.67 MG/DL (0.60-1.30); GFR ESTIMATED > 60
[2020-02-02 02:37] LABS: BUN/CREATININE RATIO 33
[2020-02-02 02:38] LABS: ALANINE AMINOTRANSFERASE 48 U/L (0-55); MAGNESIUM 2.1 MG/DL (1.6-2.4)
--- NOTE | 2020-02-02 03:15 | NUR ---
PT TURNED FROM PRONE POSITION TO SUPINE. RT AT [facility] AND STAFF ASSIST X4. IV, PICC LINE, GOOD CATHETER, AND ET TUBE INTACT UPON PLACING PT IN SUPINE POSITION. PT OXYGEN SATURATION AT 93%. WILL CONTINUE TO MONITOR.
[2020-02-02] MEDS: NOREPINEPHRINE 4 MG/250 ML 250 ML IV SCH ×4 (03:37→22:01)
[2020-02-02] MEDS: MAGNESIUM 1 GM/100 ML IVPB 100 ML IV SCH (03:46)
[2020-02-02] MEDS: POTASSIUM CL 10MEQ/50ML IVPB 50 ML IV SCH (03:46)
[2020-02-02] MEDS: KCL 20 MEQ TAB (K-DUR) PO SCH (03:47)
[2020-02-02] MEDS: inSUlin ASPART (NovoLOG) 1 UNIT/0.01 ML (CHARGE PER UNIT) SC SCH ×3 (05:57→17:49)
[2020-02-02] MEDS: ENOXAPARIN 300 MG/3 ML (LOVENOX) MULTI-DOSE VIAL SQ SCH ×2 (06:06→16:43)
[2020-02-02] MEDS: PIPERACILLIN/TAZOBACTAM (BULK) 4.5 GM in NS (IVPB) 100 ML IV SCH ×3 (06:07→22:00)
[2020-02-02] MEDS: [UNRECOGNIZED DRUG - OTHER] IV SCH (08:49)
[2020-02-02] MEDS: PANTOPRAZOLE 40 MG (PROTONIX) VIAL IV SCH (08:49)
[2020-02-02] MEDS: FUROSEMIDE 40 MG/4 ML INJ (LASIX) IVP SCH (08:49)
[2020-02-02] MEDS: ANIDULAFUNGIN INJECTION 100 MG in NS (IVPB) 100 ML IV SCH (08:49)
[2020-02-02] MEDS ORDERED: FLUCONAZOLE 200 MG/100 ML 100 ML IV ONE (10:15)
--- NOTE | 2020-02-02 10:28 | NUR ---
"RD FOLLOW-UP Est kcal needs: 9586-3727 kcal | 15-18 kcal/kg Est Pro needs: 90-112 g Pro | 0.8-1.0 g Pro/kg Discussed with JAY Taylor about possible plan to switch to bolus feeding instead of continuous d/t proning of pt. Note abnormal low lab values of Pro 5.1; and alb 2.1, per chart review. If bolus is the plan, would recommend the followin can Glucerna 1.5 x5/day. Flush with 150ml free water before and after each bolus for hydration status. Total cans provide 1775 kcal (16 kcal/kg); 98 g Pro (0.9 g Pro/kg); and 900ml free water. With flushes, provides 2700ml free water. If plan is to remain on continuous feed, would recommend the following: Glucerna 1.5 at goal rate of 50ml/hr, with flushes of 300ml q4h for hydration status. At goal rate, provides 1800 kcal (16 kcal/kg); 99 g Pro (0.9 g Pro/kg); and 911ml free water. With flushes, provides 2711ml free water. Will continue to follow and reassess as pt needs, intake, and status change. Emerson Dunaway, MS, RD, LD [phone]"
[2020-02-02] MEDS: fentaNYL INJECTION 1,250 MCG in NS (IVPB) 250 ML IV SCH ×2 (11:09→21:16)
[2020-02-02] MEDS: MIDAZOLAM INJECTION FOR DRIPS 50 MG in NS (IVPB) 90 ML IV SCH (11:10)
[2020-02-02] MEDS ORDERED: acetaZOLAMIDE INJ 500 MG (DIAMOX) VIAL IV NR (12:00)
--- NOTE | 2020-02-02 13:32 | Progress Note - Hospitalist ---
Subjective HPI/CC On Admission Date Seen by Provider: Feb 02, 2020 Time Seen by Provider: 10:20 Subjective/Events-last exam He remains intubated and sedated. Focused Exam Lactate Level 01/31/20 06:54: Lactic Acid Level 0.49L Objective Exam Vital Signs Vital Signs Date Time Temp Pulse Resp B/P (MAP) Pulse Ox O2 Delivery O2 Flow Rate FiO2 02/02/20 13:00 72 16 138/68 (91) 96 Mechanical Ventilator 60.00 02/02/20 12:40 70 02/02/20 04:19 36.4 Capillary Refill : Less Than 3 Seconds General Appearance: No Apparent Distress, Obese, Other (Intubated and sedated) Respiratory: Lungs Clear, Normal Breath Sounds, No Respiratory Distress, Other (Intubated and mechanically ventilated) Cardiovascular: Regular Rate, Rhythm, No Edema, No Murmur Gastrointestinal: Normal Bowel Sounds, Soft Extremity: Normal Inspection, No Pedal Edema Neurologic/Psychiatric: Other (Sedated) Skin: Normal Color, Warm/Dry Results/Procedures Lab Laboratory Tests 02/02/20 02:06 Patient resulted labs reviewed. Imaging: Reviewed Imaging Report Assessment/Plan Assessment and Plan Assess & Plan/Chief Complaint COVID-19 ARDS Elevated d-dimer Viral sepsis s/p cardiac arrest VAP Tele-ICU managing ventilator Completed course of Remdesivir Continue Decadron Continue PPI Resume tube feeds Continue Lovenox Continue Zosyn Transition to fluconazole Shock, resolved Elevated LFTs, resolved Diagnosis/Problems Diagnosis/Problems (1) COVID-19 Status: Acute (2) ARDS (adult respiratory distress syndrome) Status: Acute (3) Elevated LFTs Status: Resolved Resolution Date/Time: 01/28/20 @ 11:25 (4) Elevated d-dimer Status: Acute (5) Shock Status: Resolved Resolution Date/Time: 01/27/20 @ 10:41 (6) Cardiac arrest Status: Acute Clinical Quality Measures DVT/VTE Risk/Contraindication: Risk Factor Score Per Nursin RFS Level Per Nursing on Admit: 4+=Very High FRANNIE SMITH MD Feb 02, 2020 13:32
--- NOTE | 2020-02-02 13:55 | Diagnostic Imaging Report ---
INDICATION: COVID positive, ileus versus obstruction. FINDINGS: A supine view of the abdomen demonstrates moderate amount of stool throughout the colon. Small bowel gas pattern appears normal. Some degenerative changes present in the spine. There are no abnormal calcifications. IMPRESSION: There is increased stool throughout the colon. No evidence of an obstruction or ileus is present. Dictated by: Dictated on workstation # [id number]
[2020-02-02] MEDS: DexMEDEtomidine 250 ML DRIP 250 ML IV SCH (15:15)
[2020-02-02] MEDS ORDERED: TROUGH ORDER-PHARMACY XX NR (19:00)
[2020-02-02] MEDS ORDERED: fentaNYL (OMNICELL DRIP KIT ONLY) 250 MCG/5 ML AMP ONE (19:50)
[2020-02-02] MEDS ORDERED: NS (IVPB) 0 ML ONE (19:52)
[2020-02-03] VITALS (27 sets, daily range): BP systolic 92–162; BP diastolic 46–69
[2020-02-03] MEDS: PROPOFOL DRIP (ICU) 100 ML IV SCH ×7 (01:20→21:47)
[2020-02-03] MEDS: inSUlin ASPART (NovoLOG) 1 UNIT/0.01 ML (CHARGE PER UNIT) SC SCH ×4 (01:32→17:05)
[2020-02-03] MEDS: MIDAZOLAM INJECTION FOR DRIPS 50 MG in NS (IVPB) 90 ML IV SCH ×2 (04:15→21:48)
[2020-02-03 04:18] LABS: ABG BASE EXCESS 1.2 MMOL/L (-2.5-2.5); ABG OXYGEN SATURATION 98 % (94-100); ABG PCO2 52 MMHG (35-45); ABG PO2 113 MMHG (79-93); ABG TCO2 28.3 MMOL/L (21.0-31.0); BASOPHILS % (AUTO) 0 % (0-10); EOSINOPHILS # (AUTO) 0.2 10^3/uL (0.0-0.3); EOSINOPHILS % (AUTO) 2 % (0-10); HEMATOCRIT 32 % (40-54); HEMOGLOBIN 10.3 G/DL (13.3-17.7); LYMPHOCYTES # (AUTO) 0.6 X 10^3 (1.0-4.0); LYMPHOCYTES % (AUTO) 5 % (12-44); MEAN CORPUSCULAR HEMOGLOBIN 31 PG (25-34); MEAN CORPUSCULAR HGB CONC 32 G/DL (32-36); MEAN CORPUSCULAR VOLUME 96 FL (80-99); MEAN PLATELET VOLUME 10.6 FL (7.4-10.4); MONOCYTES % (AUTO) 8 % (0-12); NEUTROPHILS # (AUTO) 10.6 X 10^3 (1.8-7.8); NEUTROPHILS % (AUTO) 86 % (42-75); PLATELET COUNT 321 10^3/uL (130-400); RED CELL DISTRIBUTION WIDTH 13.9 % (10.0-14.5); WHITE BLOOD COUNT 12.4 10^3/uL (4.3-11.0)
[2020-02-03 04:26] LABS: ABG PH 7.33 (7.37-7.43); ALLENS TEST YES-POS; INSPIRED O2 60%; PATIENT TEMP 36.3; VENTILATOR YES
[2020-02-03 04:34] LABS: ALBUMIN 2.1 GM/DL (3.2-4.5); CHLORIDE 108 MMOL/L (98-107); POTASSIUM 3.6 MMOL/L (3.6-5.0); SODIUM 140 MMOL/L (135-145)
[2020-02-03 04:35] LABS: CALCIUM 8.3 MG/DL (8.5-10.1)
[2020-02-03 04:37] LABS: GLUCOSE 103 MG/DL (70-105); TOTAL PROTEIN 5.2 GM/DL (6.4-8.2)
[2020-02-03 04:38] LABS: BILIRUBIN,TOTAL 0.6 MG/DL (0.1-1.0); CARBON DIOXIDE 23 MMOL/L (21-32)
[2020-02-03 04:40] LABS: ALKALINE PHOSPHATASE 56 U/L (40-136); GFR ESTIMATED > 60
[2020-02-03 04:41] LABS: BUN/CREATININE RATIO 26
[2020-02-03 04:43] LABS: ALANINE AMINOTRANSFERASE 38 U/L (0-55)
[2020-02-03 04:44] LABS: MAGNESIUM 2.3 MG/DL (1.6-2.4)
[2020-02-03] MEDS: MAGNESIUM 1 GM/100 ML IVPB 100 ML IV SCH (06:01)
[2020-02-03] MEDS: POTASSIUM CL 10MEQ/50ML IVPB 50 ML IV SCH (06:01)
[2020-02-03] MEDS: KCL 20 MEQ TAB (K-DUR) PO SCH (06:01)
[2020-02-03] MEDS: PIPERACILLIN/TAZOBACTAM (BULK) 4.5 GM in NS (IVPB) 100 ML IV SCH ×3 (06:07→21:59)
[2020-02-03] MEDS: NOREPINEPHRINE 4 MG/250 ML 250 ML IV SCH ×3 (06:07→18:35)
[2020-02-03] MEDS: ENOXAPARIN 300 MG/3 ML (LOVENOX) MULTI-DOSE VIAL SQ SCH ×2 (06:07→17:05)
[2020-02-03] MEDS: fentaNYL INJECTION 1,250 MCG in NS (IVPB) 250 ML IV SCH (06:12)
[2020-02-03] MEDS: PANTOPRAZOLE 40 MG (PROTONIX) VIAL IV SCH (08:47)
[2020-02-03] MEDS: LACTATED RINGERS 1,000 ML IV SCH (08:47)
[2020-02-03] MEDS: FLUCONAZOLE 200 MG/100 ML 50 ML, EMPTY IV BAG (PVC) 1 EA IV SCH ×2 (08:47)
[2020-02-03] MEDS: FUROSEMIDE 40 MG/4 ML INJ (LASIX) IVP SCH (08:47)
[2020-02-03] MEDS: [UNRECOGNIZED DRUG - OTHER] IV SCH (08:47)
--- NOTE | 2020-02-03 11:15 | Physical Therapy Progress Note ---
Therapy Progress Note Patient still on vent. Will continue to follow. ARTHUR OJEDA PT Feb 03, 2020 11:15
--- NOTE | 2020-02-03 11:22 | NUR ---
Slicing Machine Feeder spoke w/ nephew who affirmed pt's Alevism mariangel and need for anointing. Contacted Fr Palmer who said he would be coming.
--- NOTE | 2020-02-03 11:30 | NUR ---
PT PLACED IN PRONE POSITION, TOLERATED WELL.
--- NOTE | 2020-02-03 11:34 | NUR ---
166 ml iv fentanyl wasted w/ geoffrey baker.
--- NOTE | 2020-02-03 12:25 | Progress Note - Hospitalist ---
Subjective HPI/CC On Admission Date Seen by Provider: Feb 03, 2020 Time Seen by Provider: 09:25 Subjective/Events-last exam He remains intubated and sedated. Objective Exam Vital Signs Vital Signs Date Time Temp Pulse Resp B/P (MAP) Pulse Ox O2 Delivery O2 Flow Rate FiO2 02/03/20 12:00 68 28 141/59 (86) 97 Mechanical Ventilator 55.00 02/03/20 11:53 55 02/03/20 11:35 36.1 Capillary Refill : Less Than 3 Seconds General Appearance: No Apparent Distress, Obese, Other (Intubated and sedated) Respiratory: Lungs Clear, Normal Breath Sounds, No Respiratory Distress, Other (Intubated and mechanically ventilated) Cardiovascular: Regular Rate, Rhythm, No Edema, No Murmur Gastrointestinal: Normal Bowel Sounds, Soft Extremity: Normal Inspection, No Pedal Edema Neurologic/Psychiatric: Other (Sedated) Skin: Normal Color, Warm/Dry Results/Procedures Lab Laboratory Tests 02/03/20 04:00 Patient resulted labs reviewed. Imaging: Reviewed Imaging Report Assessment/Plan Assessment and Plan Assess & Plan/Chief Complaint COVID-19 ARDS Elevated d-dimer Viral sepsis s/p cardiac arrest VAP Tele-ICU managing ventilator PEEP and FiO2 trending down Completed course of Remdesivir Continue Decadron Continue PPI Continue bolus tube feeds Continue therapeutic Lovenox Continue Zosyn Continue fluconazole Shock, resolved Elevated LFTs, resolved Diagnosis/Problems Diagnosis/Problems (1) COVID-19 Status: Acute (2) ARDS (adult respiratory distress syndrome) Status: Acute (3) Elevated LFTs Status: Resolved Resolution Date/Time: 01/28/20 @ 11:25 (4) Elevated d-dimer Status: Acute (5) Shock Status: Resolved Resolution Date/Time: 01/27/20 @ 10:41 (6) Cardiac arrest Status: Acute Clinical Quality Measures DVT/VTE Risk/Contraindication: Risk Factor Score Per Nursin RFS Level Per Nursing on Admit: 4+=Very High FRANNIE SMITH MD Feb 03, 2020 12:25
[2020-02-03] MEDS: DexMEDEtomidine 250 ML DRIP 250 ML IV SCH (14:25)
[2020-02-03] MEDS: RT-ALBUTEROL INHALER HFA (VENTOLIN HFA) 8 GM IH SCH (18:32)
[2020-02-03] MEDS: IPRATROPIUM INHALER (ATROVENT) 12.9 GM INH SCH (18:32)
--- NOTE | 2020-02-03 21:35 | NUR ---
peep to 10 per order Addendum: 02/03/20 at 2144 by MARIAA BURROUGHS RT Amended: Links added.
[2020-02-04] VITALS (30 sets, daily range): BP systolic 96–179; BP diastolic 42–83
[2020-02-04] MEDS: RT-ALBUTEROL INHALER HFA (VENTOLIN HFA) 8 GM IH SCH ×4 (01:39→21:30)
[2020-02-04] MEDS: IPRATROPIUM INHALER (ATROVENT) 12.9 GM INH SCH ×4 (01:40→21:30)
[2020-02-04 01:52] LABS: BASOPHILS % (AUTO) 0 % (0-10); EOSINOPHILS % (AUTO) 0 % (0-10); HEMATOCRIT 35 % (40-54); HEMOGLOBIN 11.2 G/DL (13.3-17.7); LYMPHOCYTES # (AUTO) 0.6 X 10^3 (1.0-4.0); LYMPHOCYTES % (AUTO) 5 % (12-44); MEAN CORPUSCULAR HEMOGLOBIN 30 PG (25-34); MEAN CORPUSCULAR HGB CONC 32 G/DL (32-36); MEAN CORPUSCULAR VOLUME 93 FL (80-99); MEAN PLATELET VOLUME 10.3 FL (7.4-10.4); MONOCYTES # (AUTO) 1.1 X 10^3 (0.0-1.0); MONOCYTES % (AUTO) 10 % (0-12); NEUTROPHILS # (AUTO) 9.2 X 10^3 (1.8-7.8); NEUTROPHILS % (AUTO) 84 % (42-75); PLATELET COUNT 389 10^3/uL (130-400); RED CELL DISTRIBUTION WIDTH 13.9 % (10.0-14.5); WHITE BLOOD COUNT 10.9 10^3/uL (4.3-11.0)
[2020-02-04] MEDS: inSUlin ASPART (NovoLOG) 1 UNIT/0.01 ML (CHARGE PER UNIT) SC SCH ×4 (01:53→17:23)
[2020-02-04] MEDS: fentaNYL INJECTION 100 MCG/2 ML AMP IVP PRN ×3 (01:54→12:54)
[2020-02-04] MEDS: PROPOFOL DRIP (ICU) 100 ML IV SCH ×8 (01:54→21:37)
[2020-02-04 02:20] LABS: ALBUMIN 2.4 GM/DL (3.2-4.5)
[2020-02-04 02:21] LABS: CHLORIDE 110 MMOL/L (98-107); POTASSIUM 3.7 MMOL/L (3.6-5.0); SODIUM 142 MMOL/L (135-145)
[2020-02-04 02:22] LABS: ABG BASE EXCESS 0.9 MMOL/L (-2.5-2.5); ABG OXYGEN SATURATION 97 % (94-100); ABG PCO2 45 MMHG (35-45); ABG PH 7.37 (7.37-7.43); ABG PO2 95 MMHG (79-93); ABG TCO2 26.8 MMOL/L (21.0-31.0); ALLENS TEST POSITIVE; CALCIUM 8.5 MG/DL (8.5-10.1); INSPIRED O2 55; PATIENT TEMP 37.4; VENTILATOR YES
[2020-02-04] MEDS: NOREPINEPHRINE 4 MG/250 ML 250 ML IV SCH ×5 (02:22→23:00)
[2020-02-04 02:23] LABS: GLUCOSE 98 MG/DL (70-105); TOTAL PROTEIN 5.8 GM/DL (6.4-8.2)
[2020-02-04 02:24] LABS: CARBON DIOXIDE 22 MMOL/L (21-32)
[2020-02-04 02:25] LABS: BILIRUBIN,TOTAL 0.5 MG/DL (0.1-1.0)
[2020-02-04 02:26] LABS: PHOSPHORUS 2.7 MG/DL (2.3-4.7)
[2020-02-04 02:27] LABS: ALKALINE PHOSPHATASE 78 U/L (40-136); CREATININE SERUM 0.77 MG/DL (0.60-1.30); GFR ESTIMATED > 60
[2020-02-04 02:28] LABS: BUN/CREATININE RATIO 27
[2020-02-04 02:29] LABS: MAGNESIUM 2.2 MG/DL (1.6-2.4)
[2020-02-04 02:30] LABS: ALANINE AMINOTRANSFERASE 35 U/L (0-55)
[2020-02-04] MEDS: KCL 20 MEQ TAB (K-DUR) PO SCH (04:07)
[2020-02-04] MEDS: POTASSIUM CL 10MEQ/50ML IVPB 50 ML IV SCH ×3 (04:07→15:28)
[2020-02-04] MEDS: MAGNESIUM 1 GM/100 ML IVPB 100 ML IV SCH (04:07)
[2020-02-04] MEDS: ENOXAPARIN 300 MG/3 ML (LOVENOX) MULTI-DOSE VIAL SQ SCH ×2 (04:41→16:38)
[2020-02-04] MEDS: PIPERACILLIN/TAZOBACTAM (BULK) 4.5 GM in NS (IVPB) 100 ML IV SCH ×3 (06:48→22:58)
[2020-02-04] MEDS: FLUCONAZOLE 200 MG/100 ML 50 ML, EMPTY IV BAG (PVC) 1 EA IV SCH ×2 (08:03)
[2020-02-04] MEDS: PANTOPRAZOLE 40 MG (PROTONIX) VIAL IV SCH (08:04)
[2020-02-04] MEDS: FUROSEMIDE 40 MG/4 ML INJ (LASIX) IVP SCH (08:04)
[2020-02-04] MEDS: [UNRECOGNIZED DRUG - OTHER] IV SCH (08:04)
[2020-02-04] MEDS: LACTATED RINGERS 1,000 ML IV SCH (08:05)
--- NOTE | 2020-02-04 10:01 | NUR ---
PT HAS INCREASED WORK OF BREATHING, RR 32-33. THIS RN NOTIFIED RT AND TELE-ICU. TELE-ICU COMPLETED CAMERA ASSESSMENT. NEW ORDERS RECEIVED. PEEP INCREASED TO 12 AT THIS TIME PER ORDERS.
[2020-02-04] MEDS ORDERED: aCETylcysteine 20% (MUCOMYST) 30ML SOLN VIAL ONE (10:24)
[2020-02-04] MEDS: aCETylcysteine 20% (MUCOMYST) 30ML SOLN VIAL INH SCH ×2 (10:41→14:08)
[2020-02-04] MEDS: MIDAZOLAM INJECTION FOR DRIPS 50 MG in NS (IVPB) 90 ML IV SCH ×2 (10:44→16:40)
[2020-02-04 11:13] LABS: ABG BASE EXCESS 0.3 MMOL/L (-2.5-2.5); ABG OXYGEN SATURATION 97 % (94-100); ABG PCO2 45 MMHG (35-45); ABG PH 7.36 (7.37-7.43); ABG PO2 97 MMHG (79-93); ABG TCO2 26.3 MMOL/L (21.0-31.0)
[2020-02-04 11:19] LABS: ALLENS TEST YES-POS
[2020-02-04 11:20] LABS: PATIENT TEMP 99.5; VENTILATOR YES
--- NOTE | 2020-02-04 11:30 | NUR ---
pt placed in prone position.
--- NOTE | 2020-02-04 12:00 | NUR ---
ABG RESULTS GIVEN TO DR SMITH.NO NEW ORDERS RECEIVED.
[2020-02-04] MEDS ORDERED: hydrALAZINE (APESOLINE) 20 MG/ML VIAL IV PRN (13:00)
--- NOTE | 2020-02-04 13:11 | NUR ---
THIS RN HAS HAD TELEICU CAMERA IN X2 ADDITIONAL TIMES THROUGHOUT DAY PT CONTINUES TO HAVE RR 30-42 ALONG W/ ABD RETRACTIONS. BP IS ELEVATED, TEMP INCREASING. DR SMITH GAVE NEW ORDERS FOR PRN HYDRALAZINE AND LABETALOL AND WANTED TO INQUIRE W/ TELEICU REGARDING PARALYTIC AND DILAUDID DRIP. TELE ICU DOES NOT FEEL PT WOULD BENEFIT FROM DILAUDID AND PARALYTIC AT THIS TIME. NEW ORDERS RECEIVED FOR SPUTUM CX. RT INFORMED.
--- NOTE | 2020-02-04 13:20 | NUR ---
PT CONTINUES HAVING RR IN 30'S-40'S ALONG WITH COUGHING. NURSING STAFF ALONG W/ RT RETURNED PT BACK TO SUPINE POSITION. ABD RETRACTIONS CONTINUE TO BE PRESENT. TELE-ICU CALLED TO CAMERA IN AGAIN. NEW ORDERS RECEIVED. FAMILY UPDATED ON PT'S STATUS.
[2020-02-04] MEDS ORDERED: HYDROmorphone 2 MG/ML VIAL (DILAUDID) ONE (13:41)
[2020-02-04] MEDS ORDERED: HYDROmorphone 2 MG/ML VIAL (DILAUDID) IV ONE (13:45)
[2020-02-04] MEDS ORDERED: HYDROmorphone 2 MG/ML VIAL (DILAUDID) IVP ONE (13:45)
--- NOTE | 2020-02-04 14:24 | NUR ---
HR INCREASED TO 170'S, TELE ICU NOTIFIED TO CAMERA BACK IN. HR RETURNED TO BASELINE W/O INTERVENTION. NEW ORDERS RECEIVED.
--- NOTE | 2020-02-04 14:27 | Diagnostic Imaging Report ---
INDICATION: Respiratory distress. COVID. Portable chest shows normal heart size and vascularity. There are bilateral interstitial infiltrates present with possibly slight clearing in the left upper lobe laterally with no other change from the 02/01/2020 study. ET tube remains in place. An OG tube is present with tip just at or past the GE junction and could be advanced 10 to 15 cm. PICC line tip is in the SVC. IMPRESSION: There are persistent bilateral infiltrates. The OG tube has been pulled back since the 02/01/2020 study. Dictated by: Dictated on workstation # [id number]
[2020-02-04 14:57] LABS: MAGNESIUM 1.8 MG/DL (1.6-2.4); POTASSIUM 3.5 MMOL/L (3.6-5.0)
[2020-02-04] MEDS: DexMEDEtomidine 250 ML DRIP 250 ML IV SCH (14:58)
[2020-02-04] MEDS: fentaNYL INJECTION 1,250 MCG in NS (IVPB) 250 ML IV SCH (14:58)
--- NOTE | 2020-02-04 15:06 | Progress Note - Hospitalist ---
Subjective HPI/CC On Admission Date Seen by Provider: Feb 04, 2020 Time Seen by Provider: 10:20 Subjective/Events-last exam he remains intubated and sedated. Objective Exam Vital Signs Vital Signs Date Time Temp Pulse Resp B/P (MAP) Pulse Ox O2 Delivery O2 Flow Rate FiO2 02/04/20 13:19 109 208/88 02/04/20 12:00 37.7 27 97 Mechanical Ventilator 55.00 02/04/20 11:00 55 Capillary Refill : Less Than 3 Seconds General Appearance: Mild Distress (tachypnea), Other (intubated and sedated) Respiratory: Lungs Clear, Normal Breath Sounds, Respiratory Distress (tachypnea), Other (intubated and mechanically ventilated) Cardiovascular: Regular Rate, Rhythm, No Edema, No Murmur Gastrointestinal: Normal Bowel Sounds, Soft Extremity: Normal Inspection, No Pedal Edema Neurologic/Psychiatric: Other (sedated) Skin: Normal Color, Warm/Dry Results/Procedures Lab Laboratory Tests 02/04/20 01:43 02/04/20 14:22 Patient resulted labs reviewed. Imaging: Reviewed Imaging Report Assessment/Plan Assessment and Plan Assess & Plan/Chief Complaint COVID-19 ARDS Elevated d-dimer Viral sepsis s/p cardiac arrest VAP hypertension Tele-ICU managing ventilator ABG within normal limits consider increased sedation versus paralytic Completed course of Remdesivir Continue Decadron Continue PPI Continue bolus tube feeds Continue therapeutic Lovenox Continue Zosyn Continue fluconazole add hydralazine and labetalol as needed for hypertension Shock, resolved Elevated LFTs, resolved Diagnosis/Problems Diagnosis/Problems (1) COVID-19 Status: Acute (2) ARDS (adult respiratory distress syndrome) Status: Acute (3) Elevated LFTs Status: Resolved Resolution Date/Time: 01/28/20 @ 11:25 (4) Elevated d-dimer Status: Acute (5) Shock Status: Resolved Resolution Date/Time: 01/27/20 @ 10:41 (6) Cardiac arrest Status: Acute Clinical Quality Measures DVT/VTE Risk/Contraindication: Risk Factor Score Per Nursin RFS Level Per Nursing on Admit: 4+=Very High FRANNIE SMITH MD Feb 04, 2020 15:06
[2020-02-04] MEDS ORDERED: ACETAMINOPHEN 650 MG SUPP (TYLENOL) PR PRN (17:45)
[2020-02-05] VITALS (32 sets, daily range): BP systolic 89–179; BP diastolic 47–88
[2020-02-05] MEDS: inSUlin ASPART (NovoLOG) 1 UNIT/0.01 ML (CHARGE PER UNIT) SC SCH ×3 (00:36→13:06)
[2020-02-05] MEDS: PROPOFOL DRIP (ICU) 100 ML IV SCH ×7 (01:08→23:34)
[2020-02-05] MEDS: MIDAZOLAM INJECTION FOR DRIPS 50 MG in NS (IVPB) 90 ML IV SCH (01:10)
[2020-02-05 01:32] LABS: ABG BASE EXCESS 2.5 MMOL/L (-2.5-2.5); ABG OXYGEN SATURATION 99 % (94-100); ABG PCO2 47 MMHG (35-45); ABG PH 7.38 (7.37-7.43); ABG PO2 142 MMHG (79-93); ABG TCO2 28.6 MMOL/L (21.0-31.0)
[2020-02-05 01:33] LABS: ALLENS TEST POSITIVE; INSPIRED O2 60; PATIENT TEMP 36.9; VENTILATOR YES
[2020-02-05 01:34] LABS: BASOPHILS % (AUTO) 0 % (0-10); EOSINOPHILS # (AUTO) 0.2 10^3/uL (0.0-0.3); EOSINOPHILS % (AUTO) 1 % (0-10); HEMATOCRIT 33 % (40-54); HEMOGLOBIN 10.8 G/DL (13.3-17.7); LYMPHOCYTES % (AUTO) 5 % (12-44); MEAN CORPUSCULAR HEMOGLOBIN 30 PG (25-34); MEAN CORPUSCULAR HGB CONC 32 G/DL (32-36); MEAN CORPUSCULAR VOLUME 93 FL (80-99); MEAN PLATELET VOLUME 10.3 FL (7.4-10.4); MONOCYTES # (AUTO) 1.5 X 10^3 (0.0-1.0); MONOCYTES % (AUTO) 7 % (0-12); NEUTROPHILS # (AUTO) 18.2 X 10^3 (1.8-7.8); NEUTROPHILS % (AUTO) 87 % (42-75); PLATELET COUNT 383 10^3/uL (130-400); WHITE BLOOD COUNT 20.9 10^3/uL (4.3-11.0)
[2020-02-05 01:44] LABS: ALBUMIN 2.4 GM/DL (3.2-4.5); CHLORIDE 109 MMOL/L (98-107); POTASSIUM 3.6 MMOL/L (3.6-5.0); SODIUM 142 MMOL/L (135-145)
[2020-02-05 01:46] LABS: CALCIUM 8.5 MG/DL (8.5-10.1)
[2020-02-05 01:47] LABS: GLUCOSE 112 MG/DL (70-105); TOTAL PROTEIN 5.8 GM/DL (6.4-8.2)
[2020-02-05 01:48] LABS: CARBON DIOXIDE 23 MMOL/L (21-32)
[2020-02-05 01:49] LABS: BILIRUBIN,TOTAL 0.7 MG/DL (0.1-1.0)
[2020-02-05 01:50] LABS: ALKALINE PHOSPHATASE 96 U/L (40-136); PHOSPHORUS 2.5 MG/DL (2.3-4.7)
[2020-02-05 01:51] LABS: CREATININE SERUM 0.75 MG/DL (0.60-1.30); GFR ESTIMATED > 60
[2020-02-05 01:52] LABS: BUN/CREATININE RATIO 28
[2020-02-05 01:53] LABS: MAGNESIUM 2.2 MG/DL (1.6-2.4)
[2020-02-05 01:54] LABS: ALANINE AMINOTRANSFERASE 33 U/L (0-55)
[2020-02-05 02:23] LABS: ANISOCYTOSIS SLIGHT; EOSINOPHILS % (MANUAL) 1 %; LYMPHOCYTES % (MANUAL) 4 %; MONOCYTES % (MANUAL) 7 %; NEUTROPHILS % (MANUAL) 88 %
[2020-02-05] MEDS: RT-ALBUTEROL INHALER HFA (VENTOLIN HFA) 8 GM IH SCH ×5 (02:56→21:00)
[2020-02-05] MEDS: IPRATROPIUM INHALER (ATROVENT) 12.9 GM INH SCH ×5 (02:57→21:00)
[2020-02-05] MEDS: POTASSIUM CL 10MEQ/50ML IVPB 50 ML IV SCH ×3 (02:58→05:58)
--- NOTE | 2020-02-05 05:03 | Pulmonary Progress Note ---
Subjective Time Seen by a Provider: 04:58 Subjective/Events-last exam Pt now has worsening leukocytosis and fever 101 yesterday Sepsis Event Evaluation Height, Weight, BMI Height: '" Weight: lbs. oz. kg; 30.00 BMI Method: Exam Exam Vital Signs Date Time Temp Pulse Resp B/P (MAP) Pulse Ox O2 Delivery O2 Flow Rate FiO2 02/05/20 03:00 37.1 79 28 123/63 (83) 95 Mechanical Ventilator 50.00 02/05/20 02:59 122/62 (82) 95 Mechanical Ventilator 50.00 02/05/20 02:53 81 32 100 50 02/05/20 02:00 37.2 86 27 89/47 (61) 96 Mechanical Ventilator 60.00 02/05/20 01:10 79 28 182/74 02/05/20 01:08 133/67 02/05/20 01:00 77 02/05/20 01:00 36.9 77 30 134/64 (87) 99 Mechanical Ventilator 60.00 02/05/20 00:00 100 Mechanical Ventilator 65 02/05/20 00:00 36.9 78 23 103/58 (73) 97 Mechanical Ventilator 60.00 02/04/20 23:28 Mechanical Ventilator 60.00 02/04/20 23:08 152/65 02/04/20 23:05 94/57 02/04/20 23:01 170/70 02/04/20 23:00 37.1 74 20 153/62 (92) 98 Mechanical Ventilator 65.00 02/04/20 22:45 74/50 02/04/20 22:45 74/50 02/04/20 22:00 37.3 85 23 111/52 (71) 98 Mechanical Ventilator 65.00 02/04/20 21:37 113/60 02/04/20 21:34 86 31 100 70 02/04/20 21:31 86 31 100 70 02/04/20 21:00 37.3 85 23 96/56 (69) 98 Mechanical Ventilator 70.00 02/04/20 20:02 100 Mechanical Ventilator 70.00 02/04/20 20:00 37.3 85 15 104/57 (73) 100 Mechanical Ventilator 75.00 02/04/20 19:57 100 Mechanical Ventilator 75 02/04/20 19:54 37.3 85 23 102/55 (71) 100 Mechanical Ventilator 75.00 02/04/20 19:00 37.3 85 23 97/52 (67) 97 Mechanical Ventilator 75.00 02/04/20 19:00 86 02/04/20 18:46 85 30 95 75 02/04/20 18:00 37.5 85 17 101/52 (68) 94 Mechanical Ventilator 55.00 02/04/20 17:00 37.9 89 32 113/56 (75) 97 Mechanical Ventilator 55.00 02/04/20 16:40 96 30 98/52 02/04/20 16:39 96 94/52 02/04/20 16:13 Mechanical Ventilator 75 02/04/20 16:00 38.5 93 38 101/44 (63) 96 Mechanical Ventilator 55.00 02/04/20 15:28 100 110/43 02/04/20 15:00 38.9 102 22 100/42 (61) 97 Mechanical Ventilator 55.00 02/04/20 14:08 107 29 91 75 02/04/20 14:08 107 29 91 75 02/04/20 14:08 107 29 91 55 02/04/20 14:00 38.7 111 28 113/49 (70) 100 Mechanical Ventilator 55.00 02/04/20 14:00 Mechanical Ventilator 75.00 02/04/20 13:19 109 208/88 02/04/20 13:17 110 02/04/20 13:00 38.0 96 21 158/83 (108) 99 Mechanical Ventilator 55.00 02/04/20 12:00 37.7 93 27 115/59 (77) 97 Mechanical Ventilator 55.00 02/04/20 11:00 Mechanical Ventilator 55 02/04/20 11:00 37.4 102 37 151/68 (95) 94 Mechanical Ventilator 55.00 02/04/20 10:44 66 144/66 02/04/20 10:43 96 144/66 02/04/20 10:41 95 30 93 55 02/04/20 10:00 37.2 95 21 128/57 (80) 95 Mechanical Ventilator 55.00 02/04/20 09:00 37.1 99 46 116/60 (78) 96 Mechanical Ventilator 55.00 02/04/20 08:10 81 32 97 55 02/04/20 08:05 82 159/65 02/04/20 08:00 37.3 81 44 156/64 (94) 97 Mechanical Ventilator 55.00 02/04/20 08:00 Mechanical Ventilator 55 02/04/20 07:17 82 02/04/20 07:00 37.3 82 28 151/62 (91) 98 Mechanical Ventilator 55.00 02/04/20 06:00 37.2 82 30 134/61 (85) 97 Mechanical Ventilator 55.00 02/04/20 05:00 37.2 85 28 140/60 (86) 97 Mechanical Ventilator 55.00 I & O 02/05/20 07:00 Intake Total 2150 ml Output Total 3875 ml Balance -1725 ml Height & Weight Height: '" Weight: lbs. oz. kg; 30.00 BMI Method: General Appearance: Mild Distress (tachypnea), Other (intubated and sedated) HEENT: Other (ET/OG in place) Respiratory: Lungs Clear, Normal Breath Sounds, Respiratory Distress (tachypnea), Other (intubated and mechanically ventilated) Cardiovascular: Regular Rate, Rhythm, No Edema, No Murmur Capillary Refill: Less Than 3 Seconds Gastrointestinal: normal bowel sounds, soft Extremity: Normal Inspection, No Pedal Edema Neurologic/Psychiatric: Other (sedated) Skin: Normal Color, Warm/Dry Results Lab Laboratory Tests 02/04/20 01:43 02/04/20 14:22 02/05/20 01:15 Assessment/Plan Assessment/Plan Acute respiratory failure with improving ARDS-- Fi02/Sp02 = 236 - lasix -- Hold Lasix secondary to hypotension -Change Versed to Precedex with anticipation of vent weaning. -repeat PCT -Prone- D/c proning -Change TF to cont feeds -Decrease PEEP to 10 -Worsening leukocytosis and fever of 101 yesterday -Change Diflucan back to eraxis -Change Zosyn to Merrem -s/p Remdesivir tx -Decadron -MRSA swab is neg. PNA and COVID + -Sputum cultures is showing MSSA and yeast -D/C femoral central line and culture tip -repeat delgado cultures -Pt has copious amounts of sputum -repeat sputum C&S STEFANI FORDE DO Feb 05, 2020 05:02
[2020-02-05] MEDS ORDERED: MEROPENEM 1000 MG (MERREM) VIAL IV ONE (05:33)
[2020-02-05] MEDS: NOREPINEPHRINE 4 MG/250 ML 250 ML IV SCH ×4 (05:50→17:29)
[2020-02-05] MEDS: ENOXAPARIN 300 MG/3 ML (LOVENOX) MULTI-DOSE VIAL SQ SCH ×2 (05:50→17:28)
[2020-02-05] MEDS: DexMEDEtomidine 250 ML DRIP 250 ML IV SCH ×2 (05:54→18:45)
[2020-02-05] MEDS: MEROPENEM 1,000 MG in WATER (STERILE) FOR INJECTION 20 ML IV SCH ×3 (05:54→20:34)
[2020-02-05] MEDS: KCL 20 MEQ TAB (K-DUR) PO SCH (05:58)
[2020-02-05] MEDS: MAGNESIUM 1 GM/100 ML IVPB 100 ML IV SCH (05:58)
[2020-02-05] MEDS: DOCUSATE SODIUM 10 MG/ML 10 ML UDC (COLACE) PO SCH ×2 (08:01→20:34)
[2020-02-05] MEDS: PANTOPRAZOLE 40 MG (PROTONIX) VIAL IV SCH (08:02)
[2020-02-05] MEDS: [UNRECOGNIZED DRUG - OTHER] IV SCH (08:02)
[2020-02-05] MEDS: ANIDULAFUNGIN INJECTION 100 MG in NS (IVPB) 100 ML IV SCH (08:04)
--- NOTE | 2020-02-05 13:01 | NUR ---
PT HEART RATE INCREASED TO 150'S, AFIB, BP WAS 70'S/30'S DURING THIS TIME. RN ENTERED ROOM ET ATTEMPTED TO OBTAIN EKG HOWEVER ONCE PATIENT WAS HOOKED UP TO MACHINE, PATIENT HR ET BP HAD NORMALIZED. EKG OBTAINED SHOWED SINUS RHYTHM W/ PVC. NOTIFIED DR. FORDE. NO NEW ORDERS.
--- NOTE | 2020-02-05 14:36 | NUR ---
"RD FOLLOW-UP Est kcal needs: 8457-8100 kcal | 15-20 kcal/kg Est Pro needs: 85-107 g Pro | 0.8-1.0 g Pro/kg Per Juliana THOMPSON, plan of care is for pt to receive continuous TF. Would recommend the following: Glucerna 1.5 at goal rate of 50ml/hr, with flushes of 300ml q4h for hydration status. Would begin at 10ml/hr and increase by 10ml q6h as medically able and as tolerated. Monitor gastric residuals for tolerance. At goal rate, provides 1800 kcal (17 kcal/kg); 99 g Pro (0.9 g Pro/kg); and 911ml free water. With flushes, provides 2711ml free water. Will continue to follow and reassess as pt needs, intake, and status change. Emerson Dunaway MS, RD, LD [phone]"
[2020-02-05] MEDS: hydrALAZINE (APESOLINE) 20 MG/ML VIAL IV PRN ×2 (20:33→23:34)
[2020-02-05] MEDS: LABETALOL HCL 20 MG/4 ML VIAL IV PRN (20:45)
[2020-02-05] MEDS ORDERED: meTOprolol TARTRATE 25 MG (LOPRESSOR) TABLET PO SCH (21:00)
[2020-02-06] VITALS (28 sets, daily range): BP systolic 125–191; BP diastolic 57–89
[2020-02-06] MEDS: NOREPINEPHRINE 4 MG/250 ML 250 ML IV SCH ×4 (00:51→17:50)
[2020-02-06] MEDS: RT-ALBUTEROL INHALER HFA (VENTOLIN HFA) 8 GM IH SCH ×4 (03:25→19:00)
[2020-02-06] MEDS: IPRATROPIUM INHALER (ATROVENT) 12.9 GM INH SCH ×4 (03:25→18:59)
[2020-02-06 03:28] LABS: BASOPHILS % (AUTO) 0 % (0-10); EOSINOPHILS # (AUTO) 0.5 10^3/uL (0.0-0.3); EOSINOPHILS % (AUTO) 3 % (0-10); HEMATOCRIT 34 % (40-54); HEMOGLOBIN 11.2 G/DL (13.3-17.7); LYMPHOCYTES # (AUTO) 0.9 X 10^3 (1.0-4.0); LYMPHOCYTES % (AUTO) 6 % (12-44); MEAN CORPUSCULAR HEMOGLOBIN 30 PG (25-34); MEAN CORPUSCULAR HGB CONC 33 G/DL (32-36); MEAN CORPUSCULAR VOLUME 93 FL (80-99); MEAN PLATELET VOLUME 10.1 FL (7.4-10.4); MONOCYTES % (AUTO) 7 % (0-12); NEUTROPHILS # (AUTO) 12.3 X 10^3 (1.8-7.8); NEUTROPHILS % (AUTO) 84 % (42-75); PLATELET COUNT 376 10^3/uL (130-400); RED CELL DISTRIBUTION WIDTH 14.2 % (10.0-14.5); WHITE BLOOD COUNT 14.7 10^3/uL (4.3-11.0)
[2020-02-06 03:36] LABS: CHLORIDE 114 MMOL/L (98-107); POTASSIUM 3.3 MMOL/L (3.6-5.0); SODIUM 147 MMOL/L (135-145)
[2020-02-06 03:37] LABS: CALCIUM 8.7 MG/DL (8.5-10.1)
[2020-02-06 03:38] LABS: GLUCOSE 107 MG/DL (70-105)
[2020-02-06 03:40] LABS: CARBON DIOXIDE 22 MMOL/L (21-32)
[2020-02-06 03:42] LABS: CREATININE SERUM 0.64 MG/DL (0.60-1.30); GFR ESTIMATED > 60; PHOSPHORUS 1.8 MG/DL (2.3-4.7)
[2020-02-06 03:43] LABS: BUN/CREATININE RATIO 25
[2020-02-06 03:44] LABS: MAGNESIUM 2.1 MG/DL (1.6-2.4)
[2020-02-06 03:48] LABS: ABG OXYGEN SATURATION 92 % (94-100); ABG PCO2 43 MMHG (35-45); ABG PO2 70 MMHG (79-93); ABG TCO2 27.6 MMOL/L (21.0-31.0)
[2020-02-06 03:49] LABS: ALLENS TEST POSITIVE; INSPIRED O2 35; PATIENT TEMP 36.8; VENTILATOR YES
[2020-02-06] MEDS: PROPOFOL DRIP (ICU) 100 ML IV SCH ×7 (04:14→20:31)
--- NOTE | 2020-02-06 05:19 | Pulmonary Progress Note ---
Subjective Time Seen by a Provider: 05:11 Subjective/Events-last exam Pt appears to be doing better. Sepsis Event Evaluation Height, Weight, BMI Height: '" Weight: lbs. oz. kg; 30.00 BMI Method: Exam Exam Vital Signs Date Time Temp Pulse Resp B/P (MAP) Pulse Ox O2 Delivery O2 Flow Rate FiO2 02/06/20 04:14 162/76 02/06/20 04:00 95 Mechanical Ventilator 35 02/06/20 03:29 85 31 92 35 02/06/20 03:25 85 31 92 35 02/06/20 02:00 36.4 75 26 158/69 (98) 94 Mechanical Ventilator 35.00 02/06/20 01:00 80 02/06/20 01:00 36.3 76 28 165/71 (102) 95 Mechanical Ventilator 35.00 02/06/20 00:00 36.2 82 21 135/64 (87) 93 Mechanical Ventilator 35.00 02/05/20 23:44 36.2 80 31 150/67 (94) 95 Mechanical Ventilator 35.00 02/05/20 23:39 95 Mechanical Ventilator 35 02/05/20 23:34 169/76 02/05/20 23:00 36.2 75 28 164/77 (106) 96 Mechanical Ventilator 35.00 02/05/20 22:00 36.1 80 21 174/79 (110) 95 Mechanical Ventilator 35.00 02/05/20 21:50 72 28 95 35 02/05/20 21:50 72 28 95 35 02/05/20 21:00 36.2 80 29 179/80 (113) 97 Mechanical Ventilator 35.00 02/05/20 20:04 36.2 68 28 173/88 (116) 97 Mechanical Ventilator 35.00 02/05/20 20:00 93 Mechanical Ventilator 35 02/05/20 19:56 160/87 02/05/20 19:00 72 02/05/20 19:00 36.3 72 28 160/84 (109) 92 Mechanical Ventilator 40.00 02/05/20 18:45 72 02/05/20 18:30 70 28 95 35 02/05/20 18:00 36.4 73 28 157/78 (104) 100 Mechanical Ventilator 40.00 02/05/20 17:19 82 148/76 02/05/20 17:00 36.4 75 28 135/81 (99) 94 Mechanical Ventilator 40.00 02/05/20 16:00 93 Mechanical Ventilator 40 02/05/20 16:00 36.8 80 29 154/68 (96) 93 Mechanical Ventilator 40.00 02/05/20 15:35 77 30 95 35 02/05/20 15:00 37.1 70 28 163/74 (103) 95 Mechanical Ventilator 40.00 02/05/20 14:02 81 155/68 02/05/20 14:00 37.2 101 30 145/69 (94) 94 Mechanical Ventilator 40.00 02/05/20 13:00 37.5 85 30 148/67 (94) 94 Mechanical Ventilator 40.00 02/05/20 12:22 84 02/05/20 12:00 93 Mechanical Ventilator 40 02/05/20 12:00 37.6 86 29 151/67 (95) 94 Mechanical Ventilator 40.00 02/05/20 11:32 40.00 02/05/20 11:15 Mechanical Ventilator 45.00 02/05/20 11:06 80 30 95 45 02/05/20 11:00 37.5 80 30 164/75 (104) 96 Mechanical Ventilator 50.00 02/05/20 10:20 83 155/70 02/05/20 10:00 37.4 82 23 152/68 (96) 96 Mechanical Ventilator 50.00 02/05/20 09:00 37.0 91 9 128/56 (80) 96 Mechanical Ventilator 50.00 02/05/20 08:38 96 34 94 50 02/05/20 08:29 93 35 92 50 02/05/20 08:00 36.9 87 26 131/61 (84) 93 Mechanical Ventilator 50.00 02/05/20 08:00 93 Mechanical Ventilator 50 02/05/20 07:00 36.8 85 32 123/71 (88) 96 Mechanical Ventilator 50.00 02/05/20 07:00 89 02/05/20 06:00 36.8 90 24 108/56 (73) 93 Mechanical Ventilator 50.00 02/05/20 05:54 89 02/05/20 05:53 96/59 I & O 02/06/20 07:00 Intake Total 800 ml Output Total 2675 ml Balance -1875 ml Height & Weight Height: '" Weight: lbs. oz. kg; 30.00 BMI Method: General Appearance: Mild Distress (tachypnea), Other (intubated and sedated) HEENT: Other (ET/OG in place) Respiratory: Lungs Clear, Normal Breath Sounds, Respiratory Distress (tachypnea), Other (intubated and mechanically ventilated) Cardiovascular: Regular Rate, Rhythm, No Edema, No Murmur Capillary Refill: Less Than 3 Seconds Gastrointestinal: normal bowel sounds, soft Extremity: Normal Inspection, No Pedal Edema Neurologic/Psychiatric: Other (sedated) Skin: Normal Color, Warm/Dry Results Lab Laboratory Tests 02/04/20 14:22 02/05/20 01:15 02/06/20 03:15 Assessment/Plan Assessment/Plan Acute respiratory failure with improving ARDS-- Fi02/Sp02 = 236 - lasix -- Hold Lasix secondary to hypotension -Precedex will start vent weaning. -Prone- D/c proning -TF - hold for weaning -Decrease PEEP to 10 -s/p Remdesivir tx -Decadron -MRSA swab is neg. PNA with Enterobactor -Continue Merrem, Eraxaiz --02/04 = Pt had worsening leukocytosis and fever of 101 -Diflucan changed back to eraxis -Changed Zosyn to Merrem -Procalcitonin elevated to 0.45 HTN -Lopressor started -Hydralazine PRN Hypernatremia/hyperchloremia -Start D5W at 30cc/hr STEFANI FORDE DO Feb 06, 2020 05:19
[2020-02-06] MEDS: DexMEDEtomidine 250 ML DRIP 250 ML IV SCH ×3 (05:30→17:50)
[2020-02-06] MEDS: hydrALAZINE (APESOLINE) 20 MG/ML VIAL IV PRN (06:03)
[2020-02-06] MEDS: POTASSIUM CL 10MEQ/50ML IVPB 50 ML IV SCH ×4 (06:03→08:18)
[2020-02-06] MEDS: MEROPENEM 1,000 MG in WATER (STERILE) FOR INJECTION 20 ML IV SCH (06:03)
[2020-02-06] MEDS: KCL 20 MEQ TAB (K-DUR) PO SCH (06:04)
[2020-02-06] MEDS: MAGNESIUM 1 GM/100 ML IVPB 100 ML IV SCH (06:04)
[2020-02-06] MEDS: D5W 1000 ML IV SOLUTION 1,000 ML IV SCH (06:08)
[2020-02-06] MEDS: ENOXAPARIN 300 MG/3 ML (LOVENOX) MULTI-DOSE VIAL SQ SCH ×2 (06:08→17:50)
[2020-02-06] MEDS: LABETALOL HCL 20 MG/4 ML VIAL IV PRN (06:27)
[2020-02-06] MEDS ORDERED: ACETAMINOPHEN 325 MG TABLET ONE (06:27)
--- NOTE | 2020-02-06 06:30 | NUR ---
Attempted to turn off propofol and weaning trial. Patient's blood pressure became increasingly high despite use of antihypertensives. Patient alert, would nod to questions answered using language line. Family members called to attempt to help patient relax. Patient nodded when asked if hurting. Patient unable to relax and blood pressure never decreased. Dr. Renteria to bedside and orders received. Patient able to relax with use of propofol and blood pressure starting to decrease. Will continue to monitor.
[2020-02-06] MEDS: ACETAMINOPHEN 325 MG TABLET PO PRN ×3 (06:45→17:59)
[2020-02-06] MEDS: PANTOPRAZOLE 40 MG (PROTONIX) VIAL IV SCH (08:17)
[2020-02-06] MEDS: [UNRECOGNIZED DRUG - OTHER] IV SCH (08:17)
[2020-02-06] MEDS: meTOprolol TARTRATE 25 MG (LOPRESSOR) TABLET PO SCH ×2 (08:17→20:32)
[2020-02-06] MEDS: DOCUSATE SODIUM 10 MG/ML 10 ML UDC (COLACE) PO SCH ×2 (08:17→20:31)
[2020-02-06] MEDS: ANIDULAFUNGIN INJECTION 100 MG in NS (IVPB) 100 ML IV SCH (08:17)
[2020-02-06] MEDS ORDERED: POTASSIUM PHOSPHATE INJ 30 MM in NS (IVPB) 250 ML IV ONE (09:00)
--- NOTE | 2020-02-06 09:45 | NUR ---
ORDER GIVEN TO RESTART TF PER DR FORDE. TF STARTED AT 10 ML/HR PER DIETARY.
--- NOTE | 2020-02-06 13:07 | NUR ---
"RD FOLLOW-UP Est kcal needs: 8187-2542 kcal | 15-20 kcal/kg Est Pro needs: 85-107 g Pro | 0.8-1.0 g Pro/kg Per chart review, plan of care is for pt to begin vent weaning trial and TF is currently held. If vent weaning fails, would recommend continuation of the following TF to maintain nutrition status: Glucerna 1.5 at goal rate of 50ml/hr, with flushes of 300ml q4h for hydration status. Would recommend continuing toward goal rate, as medically able and as tolerated. Monitor gastric residuals for tolerance. At goal rate, provides 1800 kcal (17 kcal/kg); 99 g Pro (0.9 g Pro/kg); and 911ml free water. With flushes, provides 2711ml free water. Will continue to follow and reassess as pt needs, intake, and status change. Emerson Dunaway MS, RD, LD [phone]"
[2020-02-06] MEDS: MEROPENEM 500 MG/SWFI 10 ML IV PUSH IV SCH ×4 (13:26→18:21)
[2020-02-06] MEDS: fentaNYL INJECTION 100 MCG/2 ML AMP IVP PRN ×2 (16:26→20:31)
[2020-02-07] VITALS (27 sets, daily range): BP systolic 78–176; BP diastolic 44–116
[2020-02-07] MEDS: PROPOFOL DRIP (ICU) 100 ML IV SCH ×5 (00:06→20:15)
[2020-02-07] MEDS: DexMEDEtomidine 250 ML DRIP 250 ML IV SCH ×3 (00:07→19:02)
[2020-02-07] MEDS: fentaNYL INJECTION 100 MCG/2 ML AMP IVP PRN ×4 (02:15→09:24)
[2020-02-07] MEDS: MEROPENEM 500 MG/SWFI 10 ML IV PUSH IV SCH ×8 (02:15→18:58)
[2020-02-07] MEDS: NOREPINEPHRINE 4 MG/250 ML 250 ML IV SCH ×3 (02:16→17:23)
[2020-02-07 02:35] LABS: ABG BASE EXCESS 2.9 MMOL/L (-2.5-2.5); ABG OXYGEN SATURATION 95 % (94-100); ABG PCO2 42 MMHG (35-45); ABG PH 7.42 (7.37-7.43); ABG PO2 79 MMHG (79-93); ABG TCO2 28.2 MMOL/L (21.0-31.0)
[2020-02-07] MEDS: IPRATROPIUM INHALER (ATROVENT) 12.9 GM INH SCH ×4 (02:35→21:55)
[2020-02-07] MEDS: RT-ALBUTEROL INHALER HFA (VENTOLIN HFA) 8 GM IH SCH ×4 (02:35→21:55)
[2020-02-07 02:36] LABS: ALLENS TEST POSITIVE; BASOPHILS % (AUTO) 0 % (0-10); EOSINOPHILS # (AUTO) 0.5 10^3/uL (0.0-0.3); EOSINOPHILS % (AUTO) 3 % (0-10); HEMATOCRIT 32 % (40-54); HEMOGLOBIN 10.3 G/DL (13.3-17.7); INSPIRED O2 40; LYMPHOCYTES % (AUTO) 7 % (12-44); MEAN CORPUSCULAR HEMOGLOBIN 30 PG (25-34); MEAN CORPUSCULAR HGB CONC 32 G/DL (32-36); MEAN CORPUSCULAR VOLUME 94 FL (80-99); MEAN PLATELET VOLUME 10.2 FL (7.4-10.4); MONOCYTES # (AUTO) 0.6 X 10^3 (0.0-1.0); MONOCYTES % (AUTO) 4 % (0-12); NEUTROPHILS # (AUTO) 13.6 X 10^3 (1.8-7.8); NEUTROPHILS % (AUTO) 86 % (42-75); PATIENT TEMP 37.4; PLATELET COUNT 321 10^3/uL (130-400); VENTILATOR YES; WHITE BLOOD COUNT 15.8 10^3/uL (4.3-11.0)
[2020-02-07 02:46] LABS: CHLORIDE 112 MMOL/L (98-107); POTASSIUM 3.6 MMOL/L (3.6-5.0)
[2020-02-07 02:47] LABS: SODIUM 144 MMOL/L (135-145)
[2020-02-07 02:48] LABS: CALCIUM 8.1 MG/DL (8.5-10.1); GLUCOSE 114 MG/DL (70-105)
[2020-02-07 02:50] LABS: CARBON DIOXIDE 22 MMOL/L (21-32)
[2020-02-07 02:52] LABS: CREATININE SERUM 0.65 MG/DL (0.60-1.30); GFR ESTIMATED > 60; PHOSPHORUS 1.6 MG/DL (2.3-4.7)
[2020-02-07 02:53] LABS: BUN/CREATININE RATIO 23
[2020-02-07 02:54] LABS: MAGNESIUM 1.9 MG/DL (1.6-2.4)
[2020-02-07] MEDS: D5W 1000 ML IV SOLUTION 1,000 ML IV SCH (04:00)
[2020-02-07] MEDS: POTASSIUM CL 10MEQ/50ML IVPB 50 ML IV SCH ×2 (04:01→05:21)
--- NOTE | 2020-02-07 05:07 | Pulmonary Progress Note ---
Subjective Time Seen by a Provider: 05:02 Subjective/Events-last exam Pt is sedated on vent. failed weaning yesterday. Sepsis Event Evaluation Height, Weight, BMI Height: '" Weight: lbs. oz. kg; 30.00 BMI Method: Exam Exam Vital Signs Date Time Temp Pulse Resp B/P (MAP) Pulse Ox O2 Delivery O2 Flow Rate FiO2 02/07/20 04:04 99 Mechanical Ventilator 40 02/07/20 04:00 37.2 85 27 144/60 (88) 97 Mechanical Ventilator 40.00 02/07/20 04:00 145/61 02/07/20 03:00 37.3 75 21 163/73 (103) 100 Mechanical Ventilator 40.00 02/07/20 02:35 75 34 100 40 02/07/20 02:00 37.4 75 29 154/67 (96) 96 Mechanical Ventilator 40.00 02/07/20 01:00 83 02/07/20 01:00 37.5 81 26 118/63 (81) 99 Mechanical Ventilator 40.00 02/07/20 00:12 Mechanical Ventilator 40.00 02/07/20 00:11 100 Mechanical Ventilator 50 02/07/20 00:07 79 165/71 02/07/20 00:06 162/69 02/07/20 00:00 37.7 81 21 143/61 (88) 100 Mechanical Ventilator 50.00 02/06/20 23:00 37.7 79 21 141/59 (86) 100 Mechanical Ventilator 50.00 02/06/20 22:00 37.9 78 21 156/66 (96) 100 Mechanical Ventilator 50.00 02/06/20 21:47 79 31 100 50 02/06/20 21:20 Mechanical Ventilator 50.00 02/06/20 21:00 38.0 80 18 154/66 (95) 100 Mechanical Ventilator 40.00 02/06/20 20:45 100 Mechanical Ventilator 60 02/06/20 20:31 147/65 02/06/20 20:00 38.1 80 19 131/61 (84) 100 Mechanical Ventilator 40.00 02/06/20 19:01 86 30 100 60 02/06/20 19:00 38.1 86 20 130/57 (81) 100 Mechanical Ventilator 40.00 02/06/20 19:00 87 02/06/20 18:29 38.2 02/06/20 18:00 38.2 96 29 153/66 (95) 100 Mechanical Ventilator 40.00 02/06/20 17:59 38.2 02/06/20 17:50 158/69 02/06/20 17:50 158/69 02/06/20 17:00 37.8 86 20 130/59 (82) 100 Mechanical Ventilator 40.00 02/06/20 16:00 37.6 90 30 142/64 (90) 97 Mechanical Ventilator 40.00 02/06/20 15:21 95 Mechanical Ventilator 35 02/06/20 15:00 37.7 94 15 131/63 (85) 89 Mechanical Ventilator 40.00 02/06/20 14:29 82 29 95 35 02/06/20 14:12 144/66 02/06/20 14:02 95 Mechanical Ventilator 35.00 02/06/20 14:00 37.9 86 20 150/69 (96) 96 Mechanical Ventilator 40.00 02/06/20 13:02 90 02/06/20 13:00 38.3 90 22 147/69 (95) 95 Mechanical Ventilator 40.00 02/06/20 12:00 38.5 97 29 136/70 (92) 92 Mechanical Ventilator 40.00 02/06/20 12:00 93 Mechanical Ventilator 35 02/06/20 11:41 150/70 02/06/20 11:40 150/70 02/06/20 11:16 38.6 02/06/20 11:00 38.7 100 34 142/67 (92) 96 Mechanical Ventilator 40.00 02/06/20 10:46 38.7 02/06/20 10:32 35 02/06/20 10:24 100 33 96 40 02/06/20 10:00 38.7 98 33 148/67 (94) 94 Mechanical Ventilator 40.00 02/06/20 09:18 Mechanical Ventilator 40.00 02/06/20 09:09 125/57 02/06/20 09:00 38.8 103 30 126/57 (80) 95 Mechanical Ventilator 35.00 02/06/20 08:00 38.6 107 33 141/66 (91) 94 Mechanical Ventilator 35.00 02/06/20 08:00 96 Mechanical Ventilator 50 02/06/20 07:09 109 02/06/20 07:00 38.6 107 39 173/76 (108) 90 Mechanical Ventilator 35.00 02/06/20 06:45 38.3 02/06/20 06:44 111 36 96 35 02/06/20 06:43 224/103 02/06/20 06:00 37.8 96 27 148/89 (108) 92 Mechanical Ventilator 35.00 02/06/20 05:30 100 I & O 02/07/20 07:00 Intake Total 3277 ml Output Total 1975 ml Balance 1302 ml Height & Weight Height: '" Weight: lbs. oz. kg; 30.00 BMI Method: General Appearance: Mild Distress (tachypnea), Other (intubated and sedated) HEENT: Other (ET/OG in place) Respiratory: Lungs Clear, Normal Breath Sounds, Respiratory Distress (tachypnea), Other (intubated and mechanically ventilated) Cardiovascular: Regular Rate, Rhythm, No Edema, No Murmur Capillary Refill: Less Than 3 Seconds Gastrointestinal: normal bowel sounds, soft Extremity: Normal Inspection, No Pedal Edema Neurologic/Psychiatric: Other (sedated) Skin: Normal Color, Warm/Dry Results Lab Laboratory Tests 02/06/20 03:15 02/07/20 02:22 Assessment/Plan Assessment/Plan Acute respiratory failure with improving ARDS-- Fi02/Sp02 = 236 -Precedex -Continue daily vent weaning. -TF - hold for weaning -s/p Remdesivir tx -Decadron -MRSA swab is neg. PNA with Enterobactor -Continue Merrem, Eraxaiz --02/04 = Pt had worsening leukocytosis and fever of 101 -Diflucan changed back to eraxis -Changed Zosyn to Merrem on 02/04 Hypophos -replace HTN -Lopressor started -Hydralazine PRN Hypernatremia/hyperchloremia -Start D5W at 30cc/hr STEFANI FORDE DO Feb 07, 2020 05:07
[2020-02-07] MEDS ORDERED: FUROSEMIDE 40 MG/4 ML INJ (LASIX) IVP ONE (05:15)
[2020-02-07] MEDS: ENOXAPARIN 300 MG/3 ML (LOVENOX) MULTI-DOSE VIAL SQ SCH ×2 (05:15→17:23)
[2020-02-07] MEDS: KCL 20 MEQ TAB (K-DUR) PO SCH (05:17)
[2020-02-07] MEDS: MAGNESIUM 1 GM/100 ML IVPB 100 ML IV SCH (05:21)
--- NOTE | 2020-02-07 06:28 | NUR ---
decreased peep to [address] forman
[2020-02-07 07:33] LABS: ABG BASE EXCESS 5.6 MMOL/L (-2.5-2.5); ABG OXYGEN SATURATION 87 % (94-100); ABG PCO2 38 MMHG (35-45); ABG PO2 56 MMHG (79-93); ABG TCO2 30.1 MMOL/L (21.0-31.0)
[2020-02-07 07:35] LABS: ALLENS TEST ART LINE
[2020-02-07 07:36] LABS: INSPIRED O2 40%; PATIENT TEMP 37.3; VENTILATOR YES
[2020-02-07] MEDS ORDERED: NS IV 1000 ML 1,000 ML ONE ×2 (08:59→11:29)
[2020-02-07] MEDS ORDERED: LORazepam INJ 2 MG/ML (ATIVAN) VIAL IVP ONE (09:00)
[2020-02-07] MEDS ORDERED: NS (IVPB) 250 ML IV ONE (09:00)
[2020-02-07] MEDS ORDERED: LORazepam INJ 2 MG/ML (ATIVAN) VIAL ONE (09:00)
[2020-02-07] MEDS ORDERED: POTASSIUM PHOSPHATE INJ 30 MM in NS (IVPB) 250 ML IV ONE (09:00)
[2020-02-07] MEDS: PANTOPRAZOLE 40 MG (PROTONIX) VIAL IV SCH (09:21)
[2020-02-07] MEDS: [UNRECOGNIZED DRUG - OTHER] IV SCH (09:21)
[2020-02-07] MEDS: ACETAMINOPHEN 325 MG TABLET PO PRN (10:04)
[2020-02-07] MEDS: meTOprolol TARTRATE 25 MG (LOPRESSOR) TABLET PO SCH ×2 (10:16→20:15)
[2020-02-07] MEDS: DOCUSATE SODIUM 10 MG/ML 10 ML UDC (COLACE) PO SCH ×2 (10:16→20:15)
[2020-02-07] MEDS ORDERED: NOREPINEPHRINE 4 MG/250 ML 250 ML IV ONE (11:29)
[2020-02-07] MEDS ORDERED: ALBUMIN 25% 25 GM/100 ML 50 ML IV NR (11:30)
[2020-02-07] MEDS ORDERED: NS IV 1000 ML 1,000 ML IV ONE (11:45)
[2020-02-07] MEDS: NS IV 500 ML 500 ML IV SCH (11:55)
[2020-02-07] MEDS ORDERED: ADENOSINE 6 MG/2 ML (ADENOCARD) VIAL IV NR ×2 (12:00)
[2020-02-07] MEDS ORDERED: ADENOSINE 6 MG/2 ML (ADENOCARD) VIAL IV ONE ×2 (12:11→12:13)
[2020-02-07] MEDS ORDERED: ALBUMIN 5% 12.5 GM/250 ML 250 ML IV ONE (12:41)
[2020-02-07] MEDS ORDERED: D5W 100 ML IVPB 0 ML IV ONE (12:43)
[2020-02-07] MEDS ORDERED: AMIODARONE INJECTION 150 MG in D5W 100 ML IVPB 100 ML IV NR (12:45)
[2020-02-07] MEDS: ANIDULAFUNGIN INJECTION 100 MG in NS (IVPB) 100 ML IV SCH (13:05)
--- NOTE | 2020-02-07 13:33 | NUR ---
TIMELINE PT VENT SETTING CHANGED PRIOR TO THIS RN SHIFT FOR WEANING TRIAL. 0752- THIS RN NOTIFIED DR FORDE OF ABG RESULTS. THIS RN ALSO NOTIFIED DR FORDE PT HR IS 120-150S, BP IS 128/69, AND RR ARE 30-40 LABORED BUT IMPROVED. PT IS ALSO NOT FOLLOWING COMMANDS WITH USE OF LANGUAGE LINE. DR FORDE GAVE ORDER TO EXTUBATE TO VAPOTHERM. THIS RN ATTEMPTED TO NOTIFY RT. 0802 THIS RN ATTEMPTED PT NOTIFIED RT AGAIN. 0810- KELLY RN WITH E-ICU CAMERA IN TO ASSESS PT. KELLY SAID SHE WAS GOING TO NOTIFY DR CHAN OF PT CONDITION. 0815- DR Yee CAMERA IN TO ASSESS PT. DR FORDE IS ON THE FLOOR. PT HR 160-170 AND SBP IS 160-180S. DR FORDE GAVE ORDER TO PLACE PT BACK ON AC MODE TO PREVIOUS SETTINGS AND TO RESTART SEDATION. THIS NURSE CLARIFIED WITH DR FORDE HE WANTED THE PEEP AT 5. RT, AT BEDSIDE WITH RN, NOTIFIED. DR Yee WITH EICU NOTIFIED OF DR FORDE'S ORDER. [address] Yee WITH E-ICU PT IS BACK ON SEDATION AND HR IS STILL 160-170S, SBP IS 70-80S. PROPOFOL IS NOW ON HOLD. PRECEDEX IS RUNNING. ORDERS GIVEN FOR ATIVAN, 250 ML NS BOLUS, AND A FENTANYL IV PUSH. ONCE BLOOD PRESSURE RESPOND TO BOLUS ORDER GIVEN TO RESTART PROPOFOL. SEE ORDER HX. 0950- THIS NURSE NOTIFIED E-ICU SBP IS STILL 70S-90S. BOLUS IS ALMOST DONE. THIS NURSE ONLY GAVE 50 MCG OF FENTANYL DUE TO HYPOTENSION. HR IS STILL 160-170S. PT IS NOT SEDATED. ORDER GIVEN TO RESTART PROPOFOL, GIVE THE OTHER 50 MCG OF FENTANYL, GIVE TYLENOL TO LOWER FEVER, AND MONITOR HR AND BP FOR NOW. 1055- THUS NURSE NOTIFIED KELLY RN WITH E-ICU THAT PT SBP IS DROPPING INTO THE 60-80S. PROPOFOL AND PRECEDEX ARE RUNNING. PT WAS GIVEN 40 LAXIS THIS MORNING AND HAD 1600 ML OF URINE OUT BEFORE 0900. THIS RN ALSO NOTIFIED KELLY PT ART LINE IS NOT GETTING A GOOD READING. KELLY SAID SHE WOULD NOTIFY DR Yee AND CALL ME BACK. 1116 THIS RN ATTEMPTED TO NOTIFY DR FORDE. 1118 DR Yee WITH E-ICU CALLED THIS RN BACK. THIS NURSE NOTIFIED HER OF PT CURRENT CONDITION. PT IS SEDATED. PT HR IS 160-170S, SBP IS 60-70 AND THIS NURSE IS UNABLE TO GET A GOOD READING FROM THE ART LINE. DR Yee ORDERED 500 ML BOLUS OF NS, ALBUMIN, AND TO SEE IF PT BLOOD PRESSURE WOULD RESPOND. IF NOT, THEN SHE WILL ORDER ANOTHER ART LINE TO BE PLACED. 1125 DR FORDE CALLED THIS RN BACK. THIS NURSE UPDATED HIM ON PT CONDITION AND E-ICU ORDERS. DR FORDE ORDER ANOTHER 500 ML BOLUS FOR A TOTAL OF 1 LITER OF NS AND TO START LEVO AND TO TITRATE PT OFF ADILIA. 1146 EKG OBTAINED AND E-ICU NOTIFIED OF RESULTS. PT IN AFIB. ORDERS GIVEN FOR ADENOSINE. 1225 PT IS SEDATED. CRASH CART AT BEDSIDE WITH PADS ATTACHED TO PT, THIS RN AND KARLA RN AT BEDSIDE. DR Yee NOTIFIED PT IS READY. DR Yee CAMERA IN. 1227- 6 MG OF ADENOSINE GIVEN IVP PER DR Yee. PT REMAINS IN AFIB. 1229-12 MG OF ADENOSINE GIVEN IVP PER DR Yee. PT REMAINS IN AFIB. 1230- DR Yee ORDER CARDIOVERSION. RT NOTIFIED. 1235- CRISPIN RN, KARLA THOMPSON, AND RT ARE AT BEDSIDE. DR Yee CAMERA IN. 1226- 100 J SHOCK DELIVERED PER DR Yee. PT REMAINS IN AFIB. 1228- 200 J SHOCK DELIVERED PER DR Yee. PT CONVERTED TO NSR. DR Yee ORDERED ONE TIME BOLUS OF AMIO. DR Yee ALSO ORDER LABS. SEE ORDER HX. 1308- DC ALBUMIN PER DR Yee WITH E-ICU. 1330- PT REMAINS IN NSR. THIS RN AT BEDSIDE TO MONITOR.
[2020-02-07 13:35] LABS: BUN/CREATININE RATIO 25; CALCIUM 7.8 MG/DL (8.5-10.1); CARBON DIOXIDE 23 MMOL/L (21-32); CHLORIDE 108 MMOL/L (98-107); CREATININE SERUM 0.71 MG/DL (0.60-1.30); GFR ESTIMATED > 60; GLUCOSE 163 MG/DL (70-105); MAGNESIUM 1.7 MG/DL (1.6-2.4); POTASSIUM 3.7 MMOL/L (3.6-5.0); SODIUM 141 MMOL/L (135-145)
[2020-02-07] MEDS ORDERED: D5W 100 ML IVPB 100 ML IV ONE (14:01)
[2020-02-07] MEDS ORDERED: AMIODARONE (OMNICELL DRIP KIT) 150 MG/3 ML IV ONE (14:01)
--- NOTE | 2020-02-07 16:39 | NUR ---
PALLIATIVE CARE internal review and audit compliance of patient chart. Talked to Dr. Renteria about patients difficulties today, and plan for extubation to be held until Wednesday...giving a rest due to today's cardioversion r/t AFLUTTER. He says that he will wait until next week to consider tracheostomy due to the his COVID -19 dx. Willl continue to follow and help as needed.
--- NOTE | 2020-02-07 19:38 | NUR ---
DR FORDE ORDERED TO HOLD TF OVERNIGHT. WILL RE-EVALUATE IN THE AM.
[2020-02-08] VITALS (25 sets, daily range): BP systolic 88–161; BP diastolic 52–98
[2020-02-08] MEDS: PROPOFOL DRIP (ICU) 100 ML IV SCH ×7 (00:04→21:05)
[2020-02-08] MEDS: NOREPINEPHRINE 4 MG/250 ML 250 ML IV SCH ×4 (02:02→18:05)
[2020-02-08] MEDS: DexMEDEtomidine 250 ML DRIP 250 ML IV SCH ×3 (02:02→21:08)
[2020-02-08] MEDS: MEROPENEM 500 MG/SWFI 10 ML IV PUSH IV SCH ×8 (02:11→21:01)
[2020-02-08] MEDS: hydrALAZINE (APESOLINE) 20 MG/ML VIAL IV PRN (02:22)
[2020-02-08 02:28] LABS: BASOPHILS % (AUTO) 0 % (0-10); EOSINOPHILS # (AUTO) 0.6 10^3/uL (0.0-0.3); EOSINOPHILS % (AUTO) 4 % (0-10); HEMATOCRIT 32 % (40-54); HEMOGLOBIN 10.2 G/DL (13.3-17.7); LYMPHOCYTES # (AUTO) 1.1 X 10^3 (1.0-4.0); LYMPHOCYTES % (AUTO) 8 % (12-44); MEAN CORPUSCULAR HEMOGLOBIN 30 PG (25-34); MEAN CORPUSCULAR HGB CONC 32 G/DL (32-36); MEAN CORPUSCULAR VOLUME 93 FL (80-99); MEAN PLATELET VOLUME 10.2 FL (7.4-10.4); MONOCYTES # (AUTO) 0.9 X 10^3 (0.0-1.0); MONOCYTES % (AUTO) 6 % (0-12); NEUTROPHILS # (AUTO) 12.3 X 10^3 (1.8-7.8); NEUTROPHILS % (AUTO) 83 % (42-75); PLATELET COUNT 327 10^3/uL (130-400); RED CELL DISTRIBUTION WIDTH 14.1 % (10.0-14.5); WHITE BLOOD COUNT 14.9 10^3/uL (4.3-11.0)
[2020-02-08 02:29] LABS: ABG BASE EXCESS 4.4 MMOL/L (-2.5-2.5); ABG OXYGEN SATURATION 95 % (94-100); ABG PCO2 41 MMHG (35-45); ABG PH 7.45 (7.37-7.43); ABG PO2 81 MMHG (79-93); ABG TCO2 29.4 MMOL/L (21.0-31.0)
[2020-02-08 02:30] LABS: ALLENS TEST YES-POS; INSPIRED O2 AC MODE; PATIENT TEMP 37.2; VENTILATOR YES
[2020-02-08] MEDS: IPRATROPIUM INHALER (ATROVENT) 12.9 GM INH SCH ×4 (02:32→20:49)
[2020-02-08] MEDS: RT-ALBUTEROL INHALER HFA (VENTOLIN HFA) 8 GM IH SCH ×4 (02:32→20:49)
[2020-02-08 02:39] LABS: CHLORIDE 109 MMOL/L (98-107); POTASSIUM 3.5 MMOL/L (3.6-5.0); SODIUM 141 MMOL/L (135-145)
[2020-02-08 02:41] LABS: GLUCOSE 117 MG/DL (70-105)
[2020-02-08 02:42] LABS: CARBON DIOXIDE 23 MMOL/L (21-32)
[2020-02-08 02:45] LABS: BUN/CREATININE RATIO 25; CREATININE SERUM 0.64 MG/DL (0.60-1.30); GFR ESTIMATED > 60
[2020-02-08 02:47] LABS: MAGNESIUM 1.9 MG/DL (1.6-2.4)
--- NOTE | 2020-02-08 05:07 | Pulmonary Progress Note ---
Subjective Time Seen by a Provider: 05:05 Subjective/Events-last exam PT is sedated on vent. Sepsis Event Evaluation Height, Weight, BMI Height: '" Weight: lbs. oz. kg; 30.00 BMI Method: Exam Exam Vital Signs Date Time Temp Pulse Resp B/P (MAP) Pulse Ox O2 Delivery O2 Flow Rate FiO2 02/08/20 05:00 37.3 75 27 155/68 (97) 95 Mechanical Ventilator 50.00 02/08/20 04:00 37.2 76 23 158/70 (99) 95 Mechanical Ventilator 50.00 02/08/20 03:45 Mechanical Ventilator 60.00 02/08/20 03:42 135/61 02/08/20 03:00 37.2 77 25 134/61 (85) 93 Mechanical Ventilator 50.00 02/08/20 02:33 81 33 93 50 02/08/20 02:02 82 158/73 02/08/20 02:02 82 158/73 02/08/20 02:00 37.2 78 32 161/75 (103) 92 Mechanical Ventilator 50.00 02/08/20 01:00 37.1 71 22 149/92 (111) 94 Mechanical Ventilator 50.00 02/08/20 01:00 70 02/08/20 00:06 37.1 73 23 155/72 (99) 93 Mechanical Ventilator 50.00 02/08/20 00:04 158/73 02/08/20 00:00 37.1 79 20 150/76 (100) 93 Mechanical Ventilator 45.00 02/07/20 23:50 92 Mechanical Ventilator 45 02/07/20 23:00 37.1 77 22 159/74 (102) 93 Mechanical Ventilator 45.00 02/07/20 22:35 97 45.00 02/07/20 22:00 37.2 68 23 155/73 (100) 95 Mechanical Ventilator 50.00 02/07/20 21:55 70 28 95 50 02/07/20 21:00 37.1 70 29 131/80 (97) 96 Mechanical Ventilator 50.00 02/07/20 20:15 152/76 02/07/20 20:00 37.2 72 27 153/73 (99) 95 Mechanical Ventilator 50.00 02/07/20 20:00 94 Mechanical Ventilator 50 02/07/20 19:02 149/69 02/07/20 19:00 71 7/8/20 19:00 37.2 68 24 151/71 (97) 94 Mechanical Ventilator 50.00 02/07/20 18:40 73 29 96 50 02/07/20 18:00 37.2 76 27 139/65 (89) 92 Mechanical Ventilator 50.00 02/07/20 17:23 134/62 02/07/20 17:00 37.3 74 27 141/63 (89) 98 Mechanical Ventilator 50.00 02/07/20 16:00 37.6 84 21 121/60 (80) 93 Mechanical Ventilator 50.00 02/07/20 16:00 96 Mechanical Ventilator 50 02/07/20 15:00 38.1 81 28 118/59 (78) 95 Mechanical Ventilator 50.00 02/07/20 14:49 86 28 95 50 02/07/20 14:00 38.1 73 23 131/66 (87) 98 Mechanical Ventilator 50.00 02/07/20 13:20 131/66 02/07/20 13:00 38.4 83 27 114/66 (82) 97 Mechanical Ventilator 40.00 02/07/20 12:46 91 02/07/20 12:00 39.0 176 27 176/116 (136) 100 Mechanical Ventilator 40.00 02/07/20 12:00 95 Mechanical Ventilator 90 02/07/20 11:57 70/40 02/07/20 11:11 163 30 99 90 02/07/20 11:00 39.1 156 46 163/110 (127) 96 Mechanical Ventilator 40.00 02/07/20 10:34 39.1 02/07/20 10:04 38.9 02/07/20 10:00 38.9 163 27 78/50 (59) 99 Mechanical Ventilator 40.00 02/07/20 09:00 38.5 152 21 97/44 (61) 83 Mechanical Ventilator 40.00 02/07/20 08:24 158 33 94 40 02/07/20 08:00 37.5 146 60 108/71 (83) 89 Mechanical Ventilator 40.00 02/07/20 08:00 93 Mechanical Ventilator 40 02/07/20 07:00 37.2 84 25 125/67 (86) 94 Mechanical Ventilator 40.00 02/07/20 06:52 86 25 95 40 02/07/20 06:38 80 02/07/20 06:24 121/60 02/07/20 06:00 37.1 79 135/68 (90) 94 Mechanical Ventilator 40.00 I & O 02/08/20 07:00 Intake Total 2103 ml Output Total 3300 ml Balance -1197 ml Height & Weight Height: '" Weight: lbs. oz. kg; 30.00 BMI Method: General Appearance: Mild Distress (tachypnea), Other (intubated and sedated) HEENT: Other (ET/OG in place) Respiratory: Lungs Clear, Normal Breath Sounds, Respiratory Distress (tachypnea), Other (intubated and mechanically ventilated) Cardiovascular: Regular Rate, Rhythm, No Edema, No Murmur Capillary Refill: Less Than 3 Seconds Gastrointestinal: normal bowel sounds, soft Extremity: Normal Inspection, No Pedal Edema Neurologic/Psychiatric: Other (sedated) Skin: Normal Color, Warm/Dry Results Lab Laboratory Tests 02/07/20 02:22 02/07/20 12:55 02/08/20 02:05 Assessment/Plan Assessment/Plan Acute respiratory failure with improving ARDS-- Fi02/Sp02 = 236 -Precedex propofol, and fentanyl -Give lasix 40 IV X 1 -Pt failed weaning yesterday and went into Aflutter then was cardioverted. -TF -resume proning -Increase decadron to 20mg daily -s/p Remdesivir tx -MRSA swab is neg. PNA with Enterobactor -Continue Merrem, Eraxais --02/04 = Pt had worsening leukocytosis and fever of 101 -Diflucan changed back to eraxis -Changed Zosyn to Merrem on 02/04 Hypophos, hypokalemia -replace HTN -Lopressor started -Hydralazine PRN Hypernatremia/hyperchloremia -Start D5W at 30cc/hr STEFANI FORDE DO Feb 08, 2020 05:07
[2020-02-08] MEDS: POTASSIUM CL 10MEQ/50ML IVPB 50 ML IV SCH ×5 (05:50→08:27)
[2020-02-08] MEDS: NS IV 500 ML 500 ML IV SCH ×2 (05:50→21:01)
[2020-02-08] MEDS: MAGNESIUM 1 GM/100 ML IVPB 100 ML IV SCH (05:51)
[2020-02-08] MEDS: ENOXAPARIN 300 MG/3 ML (LOVENOX) MULTI-DOSE VIAL SQ SCH ×2 (05:51→18:14)
[2020-02-08] MEDS: KCL 20 MEQ TAB (K-DUR) PO SCH (05:51)
[2020-02-08] MEDS: D5W 1000 ML IV SOLUTION 1,000 ML IV SCH (05:51)
[2020-02-08] MEDS ORDERED: FUROSEMIDE 40 MG/4 ML INJ (LASIX) ONE (06:23)
[2020-02-08] MEDS: fentaNYL INJECTION 100 MCG/2 ML AMP IVP PRN ×2 (06:54→07:15)
[2020-02-08] MEDS: ANIDULAFUNGIN INJECTION 100 MG in NS (IVPB) 100 ML IV SCH (07:28)
[2020-02-08] MEDS: DOCUSATE SODIUM 10 MG/ML 10 ML UDC (COLACE) PO SCH ×2 (08:13→21:02)
[2020-02-08] MEDS: meTOprolol TARTRATE 25 MG (LOPRESSOR) TABLET PO SCH ×2 (08:14→22:44)
[2020-02-08] MEDS: fentaNYL INJECTION 1,250 MCG in NS (IVPB) 250 ML IV SCH ×2 (08:15→21:08)
[2020-02-08] MEDS: PANTOPRAZOLE 40 MG (PROTONIX) VIAL IV SCH (08:27)
[2020-02-08] MEDS: [UNRECOGNIZED DRUG - OTHER] IV SCH (08:27)
[2020-02-08] MEDS: FUROSEMIDE 40 MG/4 ML INJ (LASIX) IVP SCH ×2 (08:28→22:44)
[2020-02-08] MEDS ORDERED: FUROSEMIDE 40 MG/4 ML INJ (LASIX) IVP SCH (09:00)
[2020-02-08] MEDS ORDERED: POTASSIUM PHOSPHATE INJ 30 MM in NS (IVPB) 250 ML IV ONE (09:00)
[2020-02-09] VITALS (30 sets, daily range): BP systolic 74–136; BP diastolic 42–88
[2020-02-09] MEDS: PROPOFOL DRIP (ICU) 100 ML IV SCH ×9 (00:55→23:55)
[2020-02-09] MEDS: FUROSEMIDE 40 MG/4 ML INJ (LASIX) IVP SCH (01:00)
[2020-02-09] MEDS: RT-ALBUTEROL INHALER HFA (VENTOLIN HFA) 8 GM IH SCH ×4 (01:24→19:32)
[2020-02-09] MEDS: IPRATROPIUM INHALER (ATROVENT) 12.9 GM INH SCH ×4 (01:24→19:33)
[2020-02-09] MEDS: NOREPINEPHRINE 4 MG/250 ML 250 ML IV SCH ×4 (01:33→20:29)
[2020-02-09] MEDS: MEROPENEM 500 MG/SWFI 10 ML IV PUSH IV SCH ×8 (03:21→18:21)
[2020-02-09 03:32] LABS: BASOPHILS % (AUTO) 0 % (0-10); EOSINOPHILS # (AUTO) 0.2 10^3/uL (0.0-0.3); EOSINOPHILS % (AUTO) 1 % (0-10); HEMATOCRIT 34 % (40-54); HEMOGLOBIN 11.2 G/DL (13.3-17.7); LYMPHOCYTES # (AUTO) 1.1 X 10^3 (1.0-4.0); LYMPHOCYTES % (AUTO) 7 % (12-44); MEAN CORPUSCULAR HEMOGLOBIN 30 PG (25-34); MEAN CORPUSCULAR HGB CONC 33 G/DL (32-36); MEAN CORPUSCULAR VOLUME 92 FL (80-99); MEAN PLATELET VOLUME 10.3 FL (7.4-10.4); MONOCYTES # (AUTO) 0.9 X 10^3 (0.0-1.0); MONOCYTES % (AUTO) 6 % (0-12); NEUTROPHILS # (AUTO) 12.9 X 10^3 (1.8-7.8); NEUTROPHILS % (AUTO) 86 % (42-75); PLATELET COUNT 341 10^3/uL (130-400); RED CELL DISTRIBUTION WIDTH 13.6 % (10.0-14.5)
[2020-02-09 03:41] LABS: ABG OXYGEN SATURATION 86 % (94-100); ABG PCO2 44 MMHG (35-45); ABG PH 7.46 (7.37-7.43); ABG PO2 52 MMHG (79-93); ABG TCO2 32.7 MMOL/L (21.0-31.0); ALLENS TEST YES-POS
[2020-02-09 03:42] LABS: INSPIRED O2 45%; PATIENT TEMP 35.9; VENTILATOR YES
[2020-02-09 03:53] LABS: CHLORIDE 104 MMOL/L (98-107); POTASSIUM 3.6 MMOL/L (3.6-5.0); SODIUM 141 MMOL/L (135-145)
[2020-02-09 03:54] LABS: CALCIUM 8.3 MG/DL (8.5-10.1)
[2020-02-09 03:55] LABS: GLUCOSE 116 MG/DL (70-105)
[2020-02-09 03:56] LABS: CARBON DIOXIDE 28 MMOL/L (21-32)
[2020-02-09 03:59] LABS: CREATININE SERUM 0.65 MG/DL (0.60-1.30); GFR ESTIMATED > 60; PHOSPHORUS 2.4 MG/DL (2.3-4.7)
[2020-02-09 04:00] LABS: BUN/CREATININE RATIO 25
[2020-02-09 04:01] LABS: MAGNESIUM 1.9 MG/DL (1.6-2.4)
[2020-02-09] MEDS: MAGNESIUM 1 GM/100 ML IVPB 100 ML IV SCH (04:25)
[2020-02-09] MEDS: POTASSIUM CL 10MEQ/50ML IVPB 50 ML IV SCH ×5 (04:25→08:01)
[2020-02-09] MEDS: KCL 20 MEQ TAB (K-DUR) PO SCH (04:26)
--- NOTE | 2020-02-09 05:11 | Pulmonary Progress Note ---
Subjective Time Seen by a Provider: 05:10 Sepsis Event Evaluation Height, Weight, BMI Height: '" Weight: lbs. oz. kg; 30.00 BMI Method: Exam Exam Vital Signs Date Time Temp Pulse Resp B/P (MAP) Pulse Ox O2 Delivery O2 Flow Rate FiO2 02/09/20 04:00 94 Mechanical Ventilator 60 02/09/20 04:00 36.0 70 23 104/61 (75) 94 Mechanical Ventilator 60.00 02/09/20 03:46 73 96/62 02/09/20 03:00 35.7 64 27 89/57 (68) 93 Mechanical Ventilator 45.00 02/09/20 02:00 35.6 61 28 114/77 (89) 92 Mechanical Ventilator 45.00 02/09/20 01:26 64 28 93 70 02/09/20 01:24 64 28 93 45 02/09/20 01:12 62 02/09/20 01:00 35.6 68 16 126/80 (95) 94 Mechanical Ventilator 45.00 02/09/20 00:55 80 121/82 02/09/20 00:00 96 Mechanical Ventilator 45 02/09/20 00:00 35.7 56 27 136/88 (104) 97 Mechanical Ventilator 45.00 02/08/20 23:00 35.8 119 28 119/77 (91) 97 Mechanical Ventilator 45.00 02/08/20 22:25 Mechanical Ventilator 45.00 02/08/20 22:00 36.0 62 27 106/69 (81) 96 Mechanical Ventilator 60.00 02/08/20 21:43 Mechanical Ventilator 60.00 02/08/20 21:08 102 162/95 02/08/20 21:05 102 162/95 02/08/20 21:00 35.9 74 22 104/67 (79) 95 Mechanical Ventilator 45.00 02/08/20 20:52 64 29 99 70 02/08/20 20:49 64 29 99 45 02/08/20 20:00 96 Mechanical Ventilator 45 02/08/20 20:00 35.2 78 9 159/98 (118) 97 Mechanical Ventilator 45.00 02/08/20 19:12 58 02/08/20 19:00 35.3 18 18 121/85 (97) 99 Mechanical Ventilator 45.00 02/08/20 18:00 35.5 60 7 113/79 (90) 98 Mechanical Ventilator 45.00 02/08/20 17:00 35.8 63 7 120/77 (91) 98 Mechanical Ventilator 45.00 02/08/20 16:48 65 113/65 02/08/20 16:00 36.1 60 15 113/77 (89) 98 Mechanical Ventilator 45.00 02/08/20 16:00 96 Mechanical Ventilator 45 02/08/20 15:00 36.4 64 10 107/73 (84) 97 Mechanical Ventilator 45.00 02/08/20 14:51 Mechanical Ventilator 45.00 02/08/20 14:47 64 29 99 45 02/08/20 14:00 36.5 65 10 112/72 (85) 98 Mechanical Ventilator 60.00 02/08/20 13:55 Mechanical Ventilator 60.00 02/08/20 13:30 92 148/88 02/08/20 13:30 95 148/88 02/08/20 13:01 98 Mechanical Ventilator 70 02/08/20 13:00 36.8 64 11 114/77 (89) 99 Mechanical Ventilator 50.00 02/08/20 12:44 70 02/08/20 12:00 36.8 74 21 102/65 (77) 98 Mechanical Ventilator 50.00 02/08/20 12:00 98 Mechanical Ventilator 70 02/08/20 11:00 36.9 76 19 100/59 (73) 96 Mechanical Ventilator 50.00 02/08/20 10:09 79 30 96 70 02/08/20 10:00 37.0 80 27 103/61 (75) 93 Mechanical Ventilator 50.00 02/08/20 09:58 82 106/67 02/08/20 09:00 37.1 80 25 92/56 (68) 96 Mechanical Ventilator 50.00 02/08/20 08:00 98 Mechanical Ventilator 70 02/08/20 08:00 37.4 87 19 88/52 (64) 94 Mechanical Ventilator 50.00 02/08/20 07:34 80 30 94 70 02/08/20 07:00 37.4 68 22 131/80 (97) 95 Mechanical Ventilator 50.00 02/08/20 06:50 81 02/08/20 06:43 77 02/08/20 06:00 37.3 85 25 118/68 (85) 94 Mechanical Ventilator 50.00 02/08/20 05:58 94 Mechanical Ventilator 50.00 I & O 02/09/20 07:00 Intake Total 910 ml Output Total 5100 ml Balance -4190 ml Height & Weight Height: '" Weight: lbs. oz. kg; 30.00 BMI Method: General Appearance: Mild Distress (tachypnea), Other (intubated and sedated) HEENT: Other (ET/OG in place) Respiratory: Lungs Clear, Normal Breath Sounds, Respiratory Distress (tachypnea), Other (intubated and mechanically ventilated) Cardiovascular: Regular Rate, Rhythm, No Edema, No Murmur Capillary Refill: Less Than 3 Seconds Gastrointestinal: normal bowel sounds, soft Extremity: Normal Inspection, No Pedal Edema Neurologic/Psychiatric: Other (sedated) Skin: Normal Color, Warm/Dry Results Lab Laboratory Tests 02/07/20 12:55 02/08/20 02:05 02/09/20 03:13 Assessment/Plan Assessment/Plan Acute respiratory failure with improving ARDS-- Fi02/Sp02 = 236 -Precedex propofol, and fentanyl -TF -Continue proning - decadron 20mg daily -s/p Remdesivir tx -MRSA swab is neg. Contraction alkalosis --Change Lasix to daily PNA with Enterobactor -Continue Merrem, Eraxais --02/04 = Pt had worsening leukocytosis and fever of 101 -Diflucan changed back to eraxis -Changed Zosyn to Merrem on 02/04 Hypophos, hypokalemia -replace HTN -Lopressor started -Hydralazine PRN Hypernatremia/hyperchloremia -Start D5W at 30cc/hr STEFANI FORDE DO Feb 09, 2020 05:11
[2020-02-09] MEDS ORDERED: FUROSEMIDE 40 MG/4 ML INJ (LASIX) IVP SCH ×2 (05:15→09:00)
[2020-02-09] MEDS: D5W 1000 ML IV SOLUTION 1,000 ML IV SCH (06:25)
[2020-02-09] MEDS: ENOXAPARIN 300 MG/3 ML (LOVENOX) MULTI-DOSE VIAL SQ SCH ×2 (06:25→18:08)
[2020-02-09] MEDS: DexMEDEtomidine 250 ML DRIP 250 ML IV SCH ×3 (06:38→20:32)
[2020-02-09] MEDS: ANIDULAFUNGIN INJECTION 100 MG in NS (IVPB) 100 ML IV SCH (07:58)
[2020-02-09] MEDS: PANTOPRAZOLE 40 MG (PROTONIX) VIAL IV SCH (07:58)
[2020-02-09] MEDS: DOCUSATE SODIUM 10 MG/ML 10 ML UDC (COLACE) PO SCH ×2 (07:59→20:31)
[2020-02-09] MEDS: [UNRECOGNIZED DRUG - OTHER] IV SCH (07:59)
[2020-02-09] MEDS: meTOprolol TARTRATE 25 MG (LOPRESSOR) TABLET PO SCH ×2 (08:00→20:30)
[2020-02-09] MEDS: fentaNYL INJECTION 1,250 MCG in NS (IVPB) 250 ML IV SCH ×2 (08:43→17:15)
[2020-02-09] MEDS ORDERED: POTASSIUM PHOSPHATE INJ 15 MM in NS (IVPB) 250 ML IV ONE (09:00)
[2020-02-09] MEDS: NS IV 500 ML 500 ML IV SCH (13:41)
[2020-02-10] VITALS (28 sets, daily range): BP systolic 82–139; BP diastolic 57–88
[2020-02-10] MEDS: MEROPENEM 500 MG/SWFI 10 ML IV PUSH IV SCH ×8 (01:26→17:53)
[2020-02-10] MEDS: fentaNYL INJECTION 1,250 MCG in NS (IVPB) 250 ML IV SCH ×2 (01:49→12:49)
[2020-02-10] MEDS: NOREPINEPHRINE 4 MG/250 ML 250 ML IV SCH ×4 (02:26→22:16)
[2020-02-10] MEDS: DexMEDEtomidine 250 ML DRIP 250 ML IV SCH ×3 (02:54→22:16)
[2020-02-10 03:26] LABS: BASOPHILS % (AUTO) 0 % (0-10); EOSINOPHILS # (AUTO) 0.6 10^3/uL (0.0-0.3); EOSINOPHILS % (AUTO) 5 % (0-10); HEMATOCRIT 35 % (40-54); HEMOGLOBIN 11.1 G/DL (13.3-17.7); LYMPHOCYTES # (AUTO) 0.9 X 10^3 (1.0-4.0); LYMPHOCYTES % (AUTO) 7 % (12-44); MEAN CORPUSCULAR HEMOGLOBIN 30 PG (25-34); MEAN CORPUSCULAR HGB CONC 32 G/DL (32-36); MEAN CORPUSCULAR VOLUME 94 FL (80-99); MONOCYTES # (AUTO) 0.9 X 10^3 (0.0-1.0); MONOCYTES % (AUTO) 7 % (0-12); NEUTROPHILS # (AUTO) 10.3 X 10^3 (1.8-7.8); NEUTROPHILS % (AUTO) 81 % (42-75); PLATELET COUNT 317 10^3/uL (130-400); WHITE BLOOD COUNT 12.8 10^3/uL (4.3-11.0)
[2020-02-10] MEDS: PROPOFOL DRIP (ICU) 100 ML IV SCH ×9 (03:33→23:07)
[2020-02-10 03:51] LABS: ABG BASE EXCESS 8.2 MMOL/L (-2.5-2.5); ABG OXYGEN SATURATION 96 % (94-100); ABG PCO2 45 MMHG (35-45); ABG PH 7.47 (7.37-7.43); ABG PO2 78 MMHG (79-93); ABG TCO2 33.7 MMOL/L (21.0-31.0)
[2020-02-10 03:53] LABS: CHLORIDE 103 MMOL/L (98-107); POTASSIUM 3.3 MMOL/L (3.6-5.0); SODIUM 140 MMOL/L (135-145)
[2020-02-10 03:54] LABS: CALCIUM 8.1 MG/DL (8.5-10.1)
[2020-02-10 03:55] LABS: GLUCOSE 118 MG/DL (70-105); TRIGLYCERIDES 356 MG/DL (<150)
[2020-02-10 03:56] LABS: CARBON DIOXIDE 28 MMOL/L (21-32)
[2020-02-10 03:58] LABS: PHOSPHORUS 2.1 MG/DL (2.3-4.7)
[2020-02-10 03:59] LABS: ALLENS TEST YES-POS; CREATININE SERUM 0.62 MG/DL (0.60-1.30); GFR ESTIMATED > 60; INSPIRED O2 40%; PATIENT TEMP 36.3; VENTILATOR YES
[2020-02-10 04:00] LABS: BUN/CREATININE RATIO 23
[2020-02-10] MEDS: POTASSIUM CL 10MEQ/50ML IVPB 50 ML IV SCH ×3 (04:23→06:31)
[2020-02-10] MEDS: MAGNESIUM 1 GM/100 ML IVPB 100 ML IV SCH (04:23)
[2020-02-10] MEDS: KCL 20 MEQ TAB (K-DUR) PO SCH (04:24)
[2020-02-10] MEDS: NS IV 500 ML 500 ML IV SCH (04:29)
[2020-02-10] MEDS: D5W 1000 ML IV SOLUTION 1,000 ML IV SCH (04:30)
[2020-02-10] MEDS: ENOXAPARIN 300 MG/3 ML (LOVENOX) MULTI-DOSE VIAL SQ SCH ×2 (05:35→17:50)
--- NOTE | 2020-02-10 06:17 | Pulmonary Progress Note ---
Subjective Time Seen by a Provider: 06:12 Subjective/Events-last exam Sedated on vent currently Sepsis Event Evaluation Height, Weight, BMI Height: '" Weight: lbs. oz. kg; 30.00 BMI Method: Exam Exam Vital Signs Date Time Temp Pulse Resp B/P (MAP) Pulse Ox O2 Delivery O2 Flow Rate FiO2 02/10/20 04:00 36.3 75 20 93/61 (72) 93 Mechanical Ventilator 40.00 02/10/20 03:55 96 Mechanical Ventilator 40 02/10/20 03:33 76 90/59 02/10/20 03:00 36.3 61 27 82/59 (67) 96 Mechanical Ventilator 40.00 02/10/20 02:54 65 132/82 02/10/20 02:00 36.5 75 27 127/80 (96) 96 Mechanical Ventilator 40.00 02/10/20 01:00 66 02/10/20 01:00 36.8 65 10 110/72 (85) 90 Mechanical Ventilator 40.00 02/10/20 00:54 71 28 96 60 02/10/20 00:00 96 Mechanical Ventilator 40 02/09/20 23:59 36.1 60 27 120/77 (91) 97 Mechanical Ventilator 40.00 02/09/20 23:55 60 106/71 02/09/20 23:00 35.9 64 28 105/71 (82) 97 Mechanical Ventilator 40.00 02/09/20 22:12 64 26 97 60 02/09/20 22:00 35.6 65 27 108/76 (87) 97 Mechanical Ventilator 40.00 02/09/20 21:00 35.4 63 28 112/73 (86) 96 Mechanical Ventilator 40.00 02/09/20 20:32 68 107/69 02/09/20 20:31 67 107/69 02/09/20 20:00 96 Mechanical Ventilator 40 02/09/20 20:00 35.5 61 27 108/73 (85) 96 Mechanical Ventilator 40.00 02/09/20 19:33 82 28 95 60 02/09/20 19:00 35.5 64 23 117/76 (90) 96 Mechanical Ventilator 40.00 02/09/20 19:00 61 02/09/20 18:09 67 113/78 02/09/20 18:00 35.5 54 27 108/73 (85) 96 Mechanical Ventilator 40.00 02/09/20 17:00 35.6 67 27 113/78 (90) 97 Mechanical Ventilator 40.00 02/09/20 16:00 96 Mechanical Ventilator 40 02/09/20 16:00 35.7 65 28 108/71 (83) 97 Mechanical Ventilator 40.00 02/09/20 15:11 62 105/65 02/09/20 15:00 35.8 62 27 105/65 (78) 99 Mechanical Ventilator 40.00 02/09/20 14:00 35.8 59 27 97/64 (75) 98 Mechanical Ventilator 50.00 02/09/20 13:54 71 28 97 60 02/09/20 13:00 35.9 69 28 101/66 (78) 98 Mechanical Ventilator 60.00 02/09/20 12:50 69 02/09/20 12:00 99 Mechanical Ventilator 60 02/09/20 12:00 36.1 76 11 107/85 (92) 97 Mechanical Ventilator 60.00 02/09/20 11:37 72 97/59 02/09/20 11:36 72 97/59 02/09/20 11:00 36.4 72 28 97/59 (72) 96 Mechanical Ventilator 60.00 02/09/20 10:47 82 28 95 60 02/09/20 10:00 37.0 73 28 100/61 (74) 97 Mechanical Ventilator 60.00 02/09/20 09:00 36.9 72 15 95/63 (74) 94 Mechanical Ventilator 60.00 02/09/20 08:06 96 Mechanical Ventilator 60 02/09/20 08:01 75 125/75 02/09/20 08:00 36.8 70 16 112/70 (84) 98 Mechanical Ventilator 60.00 02/09/20 07:06 75 31 96 60 02/09/20 07:00 73 02/09/20 07:00 36.7 63 31 112/66 (81) 98 Mechanical Ventilator 60.00 02/09/20 06:47 76 135/93 02/09/20 06:38 75 74/46 02/09/20 06:37 68 74/46 I & O 02/10/20 07:00 Intake Total 2085 ml Output Total 4835 ml Balance -2750 ml Height & Weight Height: '" Weight: lbs. oz. kg; 30.00 BMI Method: General Appearance: Mild Distress (tachypnea), Other (intubated and sedated) HEENT: Other (ET/OG in place) Respiratory: Lungs Clear, Normal Breath Sounds, Respiratory Distress (tachypnea), Other (intubated and mechanically ventilated) Cardiovascular: Regular Rate, Rhythm, No Edema, No Murmur Capillary Refill: Less Than 3 Seconds Gastrointestinal: normal bowel sounds, soft Extremity: Normal Inspection, No Pedal Edema Neurologic/Psychiatric: Other (sedated) Skin: Normal Color, Warm/Dry Results Lab Laboratory Tests 02/09/20 03:13 02/10/20 03:14 Assessment/Plan Assessment/Plan Acute respiratory failure with improving ARDS- -Precedex propofol, and fentanyl -TF -Continue proning - decadron 20mg daily -s/p Remdesivir tx -MRSA swab is neg. Contraction alkalosis --Change Lasix to daily PNA with Enterobactor -Continue Merrem, Eraxais --02/04 = Pt had worsening leukocytosis and fever of 101 -Diflucan changed back to eraxis -Changed Zosyn to Merrem on 02/04 Hypophos, hypokalemia -replace HTN -Lopressor started -Hydralazine PRN Hypernatremia/hyperchloremia - resolved -Change D5W at 30cc/hr to D5LR STEFANI FORDE DO Feb 10, 2020 06:17
[2020-02-10] MEDS: D5 LR IV SOLUTION 1,000 ML IV SCH (06:30)
[2020-02-10] MEDS: IPRATROPIUM INHALER (ATROVENT) 12.9 GM INH SCH ×3 (06:58→19:42)
[2020-02-10] MEDS: RT-ALBUTEROL INHALER HFA (VENTOLIN HFA) 8 GM IH SCH (06:58)
[2020-02-10] MEDS ORDERED: POTASSIUM PHOSPHATE INJ 30 MM in NS (IVPB) 250 ML IV ONE (09:00)
[2020-02-10] MEDS: ANIDULAFUNGIN INJECTION 100 MG in NS (IVPB) 100 ML IV SCH (09:40)
[2020-02-10] MEDS: [UNRECOGNIZED DRUG - OTHER] IV SCH (10:55)
[2020-02-10] MEDS: DOCUSATE SODIUM 10 MG/ML 10 ML UDC (COLACE) PO SCH ×2 (10:55→22:30)
[2020-02-10] MEDS: PANTOPRAZOLE 40 MG (PROTONIX) VIAL IV SCH (10:55)
[2020-02-10] MEDS: meTOprolol TARTRATE 25 MG (LOPRESSOR) TABLET PO SCH ×2 (10:56→22:17)
[2020-02-10] MEDS: RT-ALBUTEROL INHALER HFA (VENTOLIN HFA) 18 GM IH SCH ×2 (15:21→19:39)
[2020-02-11] VITALS (30 sets, daily range): BP systolic 101–179; BP diastolic 55–95
[2020-02-11] MEDS: PROPOFOL DRIP (ICU) 100 ML IV SCH ×10 (01:20→22:53)
[2020-02-11] MEDS: MEROPENEM 500 MG/SWFI 10 ML IV PUSH IV SCH ×8 (01:25→18:26)
--- NOTE | 2020-02-11 01:38 | Pulmonary Progress Note ---
Subjective Time Seen by a Provider: 01:37 Subjective/Events-last exam Fi02 requirements are now down to 35%. Sepsis Event Evaluation Height, Weight, BMI Height: '" Weight: lbs. oz. kg; 30.00 BMI Method: Exam Exam Vital Signs Date Time Temp Pulse Resp B/P (MAP) Pulse Ox O2 Delivery O2 Flow Rate FiO2 02/11/20 01:20 65 130/76 02/11/20 00:00 36.3 63 18 135/81 (99) 97 Mechanical Ventilator 35.00 02/10/20 23:07 59 119/74 02/10/20 23:00 36.4 60 22 119/74 (89) 97 Mechanical Ventilator 35.00 02/10/20 22:40 Mechanical Ventilator 35.00 02/10/20 22:16 60 117/69 02/10/20 22:00 36.5 60 27 117/69 (85) 98 Mechanical Ventilator 40.00 02/10/20 22:00 70 29 98 35 02/10/20 21:00 36.7 64 28 115/71 (86) 98 Mechanical Ventilator 40.00 02/10/20 20:35 73 121/75 02/10/20 20:00 Mechanical Ventilator 40 02/10/20 20:00 36.9 72 25 105/63 (77) 97 Mechanical Ventilator 40.00 02/10/20 19:39 70 28 96 40 02/10/20 19:00 64 02/10/20 19:00 36.9 65 28 139/85 (103) 99 Mechanical Ventilator 40.00 02/10/20 18:00 37.1 62 30 116/69 (85) 98 Mechanical Ventilator 40.00 02/10/20 17:51 118/71 02/10/20 17:00 37.4 65 27 111/71 (84) 97 Mechanical Ventilator 40.00 02/10/20 16:00 37.7 68 21 119/72 (88) 97 Mechanical Ventilator 40.00 02/10/20 15:58 97 Mechanical Ventilator 40 02/10/20 15:35 128/88 02/10/20 15:34 128/88 02/10/20 15:21 69 28 100 40 02/10/20 15:00 37.6 71 27 115/77 (90) 98 Mechanical Ventilator 40.00 02/10/20 14:00 37.7 79 40 109/68 (82) 97 Mechanical Ventilator 40.00 02/10/20 13:21 130/77 02/10/20 13:00 69 02/10/20 13:00 37.7 80 28 123/79 (94) 91 Mechanical Ventilator 40.00 02/10/20 12:39 95 Mechanical Ventilator 40 02/10/20 12:00 36.7 73 28 109/70 (83) 99 Mechanical Ventilator 40.00 02/10/20 11:10 75 29 94 40 02/10/20 11:00 36.2 73 27 112/71 (85) Mechanical Ventilator 40.00 02/10/20 10:00 35.9 81 18 98/70 (79) Mechanical Ventilator 40.00 02/10/20 09:25 87/54 02/10/20 09:00 35.7 81 28 82/57 (65) 96 Mechanical Ventilator 40.00 02/10/20 08:00 35.7 76 28 88/59 (69) 96 Mechanical Ventilator 40.00 02/10/20 08:00 94 Mechanical Ventilator 40 02/10/20 07:00 36.0 72 28 94/66 (75) 96 Mechanical Ventilator 40.00 02/10/20 07:00 74 02/10/20 06:58 70 28 96 40 02/10/20 06:30 69 93/63 02/10/20 06:00 36.2 70 16 94/64 (74) 95 Mechanical Ventilator 40.00 02/10/20 05:00 36.3 70 28 100/68 (79) 95 Mechanical Ventilator 40.00 02/10/20 04:00 36.3 75 20 93/61 (72) 93 Mechanical Ventilator 40.00 02/10/20 03:55 96 Mechanical Ventilator 40 02/10/20 03:33 76 90/59 02/10/20 03:00 36.3 61 27 82/59 (67) 96 Mechanical Ventilator 40.00 02/10/20 02:54 65 132/82 02/10/20 02:00 36.5 75 27 127/80 (96) 96 Mechanical Ventilator 40.00 I & O 02/11/20 07:00 Intake Total 910 ml Output Total 1950 ml Balance -1040 ml Height & Weight Height: '" Weight: lbs. oz. kg; 30.00 BMI Method: General Appearance: Mild Distress (tachypnea), Other (intubated and sedated) HEENT: Other (ET/OG in place) Respiratory: Lungs Clear, Normal Breath Sounds, Respiratory Distress (tachypnea), Other (intubated and mechanically ventilated) Cardiovascular: Regular Rate, Rhythm, No Edema, No Murmur Capillary Refill: Less Than 3 Seconds Gastrointestinal: normal bowel sounds, soft Extremity: Normal Inspection, No Pedal Edema Neurologic/Psychiatric: Other (sedated) Skin: Normal Color, Warm/Dry Results Lab Laboratory Tests 02/09/20 03:13 02/10/20 03:14 Assessment/Plan Assessment/Plan Acute respiratory failure with improving ARDS- -Precedex propofol, and fentanyl -TF -Continue proning -Labs pending - decadron 20mg daily -s/p Remdesivir tx -MRSA swab is neg. Contraction alkalosis --Lasix PNA with Enterobactor -Continue Merrem, Eraxais --02/04 = Pt had worsening leukocytosis and fever of 101 -Diflucan changed back to eraxis -Changed Zosyn to Merrem on 02/04 Hypophos, hypokalemia -replace HTN -Lopressor started -Hydralazine PRN Hypernatremia/hyperchloremia - resolved -Change D5W at 30cc/hr to D5LR STEFANI FORDE DO Feb 11, 2020 01:38
[2020-02-11] MEDS: RT-ALBUTEROL INHALER HFA (VENTOLIN HFA) 18 GM IH SCH ×4 (02:11→19:40)
[2020-02-11] MEDS: IPRATROPIUM INHALER (ATROVENT) 12.9 GM INH SCH ×4 (02:12→19:40)
[2020-02-11 04:44] LABS: ABG BASE EXCESS 6.4 MMOL/L (-2.5-2.5); ABG OXYGEN SATURATION 84 % (94-100); ABG PCO2 48 MMHG (35-45); ABG PH 7.42 (7.37-7.43); ABG PO2 57 MMHG (79-93); ABG TCO2 32.3 MMOL/L (21.0-31.0)
[2020-02-11] MEDS: ENOXAPARIN 300 MG/3 ML (LOVENOX) MULTI-DOSE VIAL SQ SCH ×2 (04:44→18:22)
[2020-02-11] MEDS: DexMEDEtomidine 250 ML DRIP 250 ML IV SCH ×4 (04:44→22:54)
[2020-02-11] MEDS: NOREPINEPHRINE 4 MG/250 ML 250 ML IV SCH ×4 (04:44→21:28)
[2020-02-11 04:46] LABS: BASOPHILS % (AUTO) 0 % (0-10); EOSINOPHILS # (AUTO) 0.3 10^3/uL (0.0-0.3); EOSINOPHILS % (AUTO) 2 % (0-10); HEMATOCRIT 34 % (40-54); LYMPHOCYTES # (AUTO) 1.6 X 10^3 (1.0-4.0); LYMPHOCYTES % (AUTO) 12 % (12-44); MEAN CORPUSCULAR HEMOGLOBIN 30 PG (25-34); MEAN CORPUSCULAR HGB CONC 33 G/DL (32-36); MEAN CORPUSCULAR VOLUME 93 FL (80-99); MEAN PLATELET VOLUME 10.1 FL (7.4-10.4); MONOCYTES # (AUTO) 0.9 X 10^3 (0.0-1.0); MONOCYTES % (AUTO) 7 % (0-12); NEUTROPHILS # (AUTO) 10.4 X 10^3 (1.8-7.8); NEUTROPHILS % (AUTO) 78 % (42-75); PLATELET COUNT 341 10^3/uL (130-400); RED CELL DISTRIBUTION WIDTH 13.7 % (10.0-14.5); WHITE BLOOD COUNT 13.2 10^3/uL (4.3-11.0)
[2020-02-11 04:50] LABS: ALLENS TEST YES-POS
[2020-02-11 04:51] LABS: INSPIRED O2 35%; PATIENT TEMP 37.1; VENTILATOR YES
[2020-02-11 05:03] LABS: CHLORIDE 104 MMOL/L (98-107); POTASSIUM 3.7 MMOL/L (3.6-5.0); SODIUM 140 MMOL/L (135-145)
[2020-02-11 05:04] LABS: CALCIUM 8.1 MG/DL (8.5-10.1)
[2020-02-11 05:05] LABS: GLUCOSE 115 MG/DL (70-105)
[2020-02-11 05:06] LABS: CARBON DIOXIDE 26 MMOL/L (21-32)
[2020-02-11 05:08] LABS: PHOSPHORUS 2.3 MG/DL (2.3-4.7)
[2020-02-11 05:09] LABS: CREATININE SERUM 0.58 MG/DL (0.60-1.30); GFR ESTIMATED > 60
[2020-02-11 05:10] LABS: BUN/CREATININE RATIO 21
[2020-02-11 05:11] LABS: MAGNESIUM 1.9 MG/DL (1.6-2.4)
[2020-02-11] MEDS: MAGNESIUM 1 GM/100 ML IVPB 100 ML IV SCH (05:31)
[2020-02-11] MEDS: POTASSIUM CL 10MEQ/50ML IVPB 50 ML IV SCH (05:31)
[2020-02-11] MEDS: KCL 20 MEQ TAB (K-DUR) PO SCH (05:31)
[2020-02-11] MEDS: D5 LR IV SOLUTION 1,000 ML IV SCH (06:53)
[2020-02-11] MEDS: [UNRECOGNIZED DRUG - OTHER] IV SCH (08:10)
[2020-02-11] MEDS: PANTOPRAZOLE 40 MG (PROTONIX) VIAL IV SCH (08:11)
[2020-02-11] MEDS: DOCUSATE SODIUM 10 MG/ML 10 ML UDC (COLACE) PO SCH ×2 (08:11→21:28)
[2020-02-11] MEDS: ANIDULAFUNGIN INJECTION 100 MG in NS (IVPB) 100 ML IV SCH (08:11)
[2020-02-11] MEDS: meTOprolol TARTRATE 25 MG (LOPRESSOR) TABLET PO SCH ×2 (08:11→21:28)
[2020-02-11] MEDS: NS IV SCH (15:56)
[2020-02-11] MEDS: FENTANYL IV SCH (15:56)
[2020-02-12] VITALS (30 sets, daily range): BP systolic 92–139; BP diastolic 53–88
[2020-02-12] MEDS: MEROPENEM 500 MG/SWFI 10 ML IV PUSH IV SCH ×8 (01:49→18:20)
[2020-02-12] MEDS: IPRATROPIUM INHALER (ATROVENT) 12.9 GM INH SCH ×4 (03:11→19:17)
[2020-02-12] MEDS: RT-ALBUTEROL INHALER HFA (VENTOLIN HFA) 18 GM IH SCH ×4 (03:11→19:17)
[2020-02-12 03:43] LABS: ABG BASE EXCESS 6.4 MMOL/L (-2.5-2.5); ABG OXYGEN SATURATION 94 % (94-100); ABG PCO2 48 MMHG (35-45); ABG PH 7.42 (7.37-7.43); ABG PO2 73 MMHG (79-93); ABG TCO2 32.5 MMOL/L (21.0-31.0)
[2020-02-12] MEDS: NOREPINEPHRINE 4 MG/250 ML 250 ML IV SCH ×4 (03:44→22:29)
[2020-02-12 03:45] LABS: ALLENS TEST YES-POS; INSPIRED O2 35%; PATIENT TEMP 36.6; VENTILATOR YES
[2020-02-12 03:46] LABS: BASOPHILS % (AUTO) 0 % (0-10); EOSINOPHILS # (AUTO) 0.4 10^3/uL (0.0-0.3); EOSINOPHILS % (AUTO) 3 % (0-10); HEMATOCRIT 32 % (40-54); HEMOGLOBIN 10.4 G/DL (13.3-17.7); LYMPHOCYTES # (AUTO) 1.5 X 10^3 (1.0-4.0); LYMPHOCYTES % (AUTO) 13 % (12-44); MEAN CORPUSCULAR HEMOGLOBIN 30 PG (25-34); MEAN CORPUSCULAR HGB CONC 32 G/DL (32-36); MEAN CORPUSCULAR VOLUME 93 FL (80-99); MEAN PLATELET VOLUME 10.3 FL (7.4-10.4); MONOCYTES # (AUTO) 0.9 X 10^3 (0.0-1.0); MONOCYTES % (AUTO) 8 % (0-12); NEUTROPHILS # (AUTO) 8.5 X 10^3 (1.8-7.8); NEUTROPHILS % (AUTO) 76 % (42-75); PLATELET COUNT 328 10^3/uL (130-400); RED CELL DISTRIBUTION WIDTH 13.8 % (10.0-14.5); WHITE BLOOD COUNT 11.2 10^3/uL (4.3-11.0)
[2020-02-12] MEDS: PROPOFOL DRIP (ICU) 100 ML IV SCH ×7 (03:46→23:30)
[2020-02-12 03:54] LABS: CHLORIDE 104 MMOL/L (98-107); POTASSIUM 3.5 MMOL/L (3.6-5.0); SODIUM 141 MMOL/L (135-145)
[2020-02-12 03:56] LABS: GLUCOSE 111 MG/DL (70-105)
[2020-02-12 03:57] LABS: TRIGLYCERIDES 271 MG/DL (<150)
[2020-02-12 03:58] LABS: CARBON DIOXIDE 26 MMOL/L (21-32)
[2020-02-12 04:00] LABS: CREATININE SERUM 0.58 MG/DL (0.60-1.30); GFR ESTIMATED > 60; PHOSPHORUS 2.1 MG/DL (2.3-4.7)
[2020-02-12 04:01] LABS: BUN/CREATININE RATIO 17
[2020-02-12 04:03] LABS: MAGNESIUM 1.9 MG/DL (1.6-2.4)
[2020-02-12] MEDS: POTASSIUM CL 10MEQ/50ML IVPB 50 ML IV SCH ×4 (04:07→06:00)
[2020-02-12] MEDS: MAGNESIUM 1 GM/100 ML IVPB 100 ML IV SCH (04:07)
[2020-02-12] MEDS: KCL 20 MEQ TAB (K-DUR) PO SCH (04:07)
[2020-02-12] MEDS: D5 LR IV SOLUTION 1,000 ML IV SCH ×2 (04:53→16:48)
[2020-02-12] MEDS: ENOXAPARIN 300 MG/3 ML (LOVENOX) MULTI-DOSE VIAL SQ SCH (04:53)
--- NOTE | 2020-02-12 05:39 | Pulmonary Progress Note ---
Subjective Time Seen by a Provider: 05:34 Subjective/Events-last exam Pt is doing better and requiring less Fi02 Sepsis Event Evaluation Height, Weight, BMI Height: '" Weight: lbs. oz. kg; 30.00 BMI Method: Exam Exam Vital Signs Date Time Temp Pulse Resp B/P (MAP) Pulse Ox O2 Delivery O2 Flow Rate FiO2 02/12/20 04:00 36.5 72 17 103/71 (82) 93 Mechanical Ventilator 35.00 02/12/20 03:47 60 111/72 02/12/20 03:46 60 111/72 02/12/20 03:30 94 Mechanical Ventilator 35 02/12/20 03:12 59 28 95 35 02/12/20 03:00 36.7 60 28 111/66 (81) 98 Mechanical Ventilator 35.00 02/12/20 02:00 36.9 62 28 121/72 (88) 97 Mechanical Ventilator 35.00 02/12/20 01:00 37.0 65 27 115/65 (82) 97 Mechanical Ventilator 35.00 02/12/20 01:00 60 02/12/20 00:00 37.1 63 28 126/75 (92) 97 Mechanical Ventilator 35.00 02/12/20 00:00 96 Mechanical Ventilator 35 02/11/20 23:00 37.2 65 27 122/75 (91) 97 Mechanical Ventilator 35.00 02/11/20 22:54 67 02/11/20 22:53 67 118/72 02/11/20 22:52 63 118/72 02/11/20 22:17 65 28 96 35 02/11/20 22:00 37.4 56 28 119/71 (87) 97 Mechanical Ventilator 35.00 02/11/20 21:00 37.6 68 28 119/70 (86) 98 Mechanical Ventilator 35.00 02/11/20 20:00 97 Mechanical Ventilator 35 02/11/20 19:50 37.8 67 28 101/62 (75) 97 Mechanical Ventilator 35.00 02/11/20 19:42 66 28 97 35 02/11/20 19:00 92 02/11/20 19:00 37.8 97 15 104/55 (71) 94 Mechanical Ventilator 35.00 02/11/20 18:25 121/67 02/11/20 18:24 121/67 02/11/20 18:22 120/67 02/11/20 18:00 37.1 111 11 179/95 (123) 94 Mechanical Ventilator 35.00 02/11/20 17:00 37.0 62 27 122/73 (89) 97 Mechanical Ventilator 35.00 02/11/20 16:02 97 Mechanical Ventilator 35 02/11/20 16:00 37.2 64 28 114/66 (82) 94 Mechanical Ventilator 35.00 02/11/20 15:37 57 28 97 35 02/11/20 15:00 37.3 60 27 120/76 (91) 97 Mechanical Ventilator 35.00 02/11/20 14:00 37.8 65 28 113/70 (84) 97 Mechanical Ventilator 35.00 02/11/20 13:34 118/70 02/11/20 13:33 118/70 02/11/20 13:00 37.7 75 27 101/64 (76) 96 Mechanical Ventilator 35.00 02/11/20 12:48 69 02/11/20 12:00 96 Mechanical Ventilator 35 02/11/20 12:00 37.4 83 27 109/61 (77) 96 Mechanical Ventilator 35.00 02/11/20 11:29 120/75 02/11/20 11:00 37.2 62 28 124/76 (92) 96 Mechanical Ventilator 35.00 02/11/20 10:42 68 28 96 35 02/11/20 10:00 36.9 96 44 110/62 (78) 95 Mechanical Ventilator 35.00 02/11/20 09:00 36.8 66 27 120/84 (96) 97 Mechanical Ventilator 35.00 02/11/20 08:56 119/74 02/11/20 08:00 36.8 71 28 106/69 (81) 95 Mechanical Ventilator 35.00 02/11/20 08:00 Mechanical Ventilator 35 02/11/20 07:13 65 28 91 35 02/11/20 07:00 36.6 100 27 128/72 (90) 91 Mechanical Ventilator 35.00 02/11/20 07:00 69 02/11/20 06:52 91 139/83 02/11/20 06:00 36.7 64 27 135/83 (100) 97 Mechanical Ventilator 35.00 I & O 02/12/20 07:00 Intake Total 1780 ml Output Total 2905 ml Balance -1125 ml Height & Weight Height: '" Weight: lbs. oz. kg; 30.00 BMI Method: General Appearance: Mild Distress (tachypnea), Other (intubated and sedated) HEENT: Other (ET/OG in place) Respiratory: Lungs Clear, Normal Breath Sounds, Respiratory Distress (tachypnea), Other (intubated and mechanically ventilated) Cardiovascular: Regular Rate, Rhythm, No Edema, No Murmur Capillary Refill: Less Than 3 Seconds Gastrointestinal: normal bowel sounds, soft Extremity: Normal Inspection, No Pedal Edema Neurologic/Psychiatric: Other (sedated) Skin: Normal Color, Warm/Dry Results Lab Laboratory Tests 02/11/20 04:30 02/12/20 03:25 Assessment/Plan Assessment/Plan Acute respiratory failure with improving ARDS- -Precedex propofol, and fentanyl -Will start weaning vent tomorrow morning -Restart Lasix -TF -D/C proning - decadron 20mg daily -s/p Remdesivir tx -MRSA swab is neg. Contraction alkalosis --Lasix PNA with Enterobactor -Continue Merrem, Eraxais --02/04 = Pt had worsening leukocytosis and fever of 101 -Diflucan changed back to eraxis -Changed Zosyn to Merrem on 02/04 Hypophos, hypokalemia -replace HTN -Lopressor started -Hydralazine PRN Hypernatremia/hyperchloremia - resolved -Change D5W at 30cc/hr to D5LR STEFANI FORDE DO Feb 12, 2020 05:39
[2020-02-12] MEDS: FUROSEMIDE 40 MG/4 ML INJ (LASIX) IVP SCH ×2 (06:02→20:23)
[2020-02-12] MEDS: PANTOPRAZOLE 40 MG (PROTONIX) VIAL IV SCH (07:55)
[2020-02-12] MEDS: ANIDULAFUNGIN INJECTION 100 MG in NS (IVPB) 100 ML IV SCH (07:55)
[2020-02-12] MEDS: meTOprolol TARTRATE 25 MG (LOPRESSOR) TABLET PO SCH ×3 (07:55→20:18)
[2020-02-12] MEDS: DOCUSATE SODIUM 10 MG/ML 10 ML UDC (COLACE) PO SCH ×2 (07:55→20:17)
[2020-02-12] MEDS: [UNRECOGNIZED DRUG - OTHER] IV SCH (07:56)
--- NOTE | 2020-02-12 07:58 | Diagnostic Imaging Report ---
HISTORY: Dyspnea and respiratory failure. COMPARISON: 02/04/2020 TECHNIQUE: Frontal view of the chest. FINDINGS: The endotracheal tube is approximately 5 cm above the chele. An enteric tube crosses the [id number]. The right PICC line tip projects over the cavoatrial junction. Lung volumes are mildly low. There are interstitial and airspace opacities throughout the lungs bilaterally, which appears symmetric and mostly peripheral in distribution. No pleural effusion or pneumothorax is seen. Overall aeration appears slightly decreased on the right and stable on the left. IMPRESSION: 1. Bilateral interstitial and airspace opacities, increased on the right and stable on the left. This may be due to edema or infection. Dictated by: Dictated on workstation # [id number]
[2020-02-12] MEDS: DexMEDEtomidine 250 ML DRIP 250 ML IV SCH ×3 (08:03→20:17)
[2020-02-12] MEDS: NS IV SCH ×2 (08:29→20:31)
[2020-02-12] MEDS: FENTANYL IV SCH ×2 (08:29→20:31)
[2020-02-12] MEDS ORDERED: POTASSIUM PHOSPHATE INJ 30 MM in NS (IVPB) 250 ML IV ONE (09:00)
--- NOTE | 2020-02-12 09:27 | NUR ---
PT IS CONSTANTLY COUGHING AND ALARMING VENT. LARGE AMOUNTS OF SPUTUM ARE BEING SUCTIONED THROUGH ETT AND ORALLY. PT IS AWAKE. SEDATION HAS BEEN INCREASED SINCE THIS RN CAME ON SHIFT (SEE IV SPREADSHEET). DR FORDE INFORMED OF THE ABOVE, NEW ORDERS RECEIVED TO GIVEN FENTANYL 100MCG NOW.
[2020-02-12] MEDS: fentaNYL INJECTION 100 MCG/2 ML AMP IVP PRN (09:36)
[2020-02-12] MEDS: ENOXAPARIN 100 MG/1 ML (LOVENOX) SYR SC SCH (16:40)
[2020-02-13] VITALS (27 sets, daily range): BP systolic 93–150; BP diastolic 60–130
[2020-02-13] MEDS: MEROPENEM 500 MG/SWFI 10 ML IV PUSH IV SCH ×10 (00:50→23:39)
[2020-02-13] MEDS: DexMEDEtomidine 250 ML DRIP 250 ML IV SCH ×2 (02:10→13:20)
[2020-02-13 02:12] LABS: ABG BASE EXCESS 9.3 MMOL/L (-2.5-2.5); ABG OXYGEN SATURATION 97 % (94-100); ABG PCO2 44 MMHG (35-45); ABG PH 7.49 (7.37-7.43); ABG PO2 82 MMHG (79-93); ABG TCO2 34.7 MMOL/L (21.0-31.0); BASOPHILS % (AUTO) 0 % (0-10); EOSINOPHILS # (AUTO) 0.5 10^3/uL (0.0-0.3); EOSINOPHILS % (AUTO) 4 % (0-10); HEMATOCRIT 31 % (40-54); HEMOGLOBIN 10.1 G/DL (13.3-17.7); LYMPHOCYTES # (AUTO) 1.5 X 10^3 (1.0-4.0); LYMPHOCYTES % (AUTO) 12 % (12-44); MEAN CORPUSCULAR HEMOGLOBIN 30 PG (25-34); MEAN CORPUSCULAR HGB CONC 32 G/DL (32-36); MEAN CORPUSCULAR VOLUME 92 FL (80-99); MEAN PLATELET VOLUME 10.3 FL (7.4-10.4); MONOCYTES # (AUTO) 0.8 X 10^3 (0.0-1.0); MONOCYTES % (AUTO) 6 % (0-12); NEUTROPHILS # (AUTO) 10.2 X 10^3 (1.8-7.8); NEUTROPHILS % (AUTO) 78 % (42-75); PLATELET COUNT 328 10^3/uL (130-400); RED CELL DISTRIBUTION WIDTH 13.9 % (10.0-14.5); WHITE BLOOD COUNT 13.1 10^3/uL (4.3-11.0)
[2020-02-13 02:13] LABS: ALLENS TEST YES-POS; INSPIRED O2 35%; PATIENT TEMP 36.4; VENTILATOR YES
[2020-02-13 02:21] LABS: CHLORIDE 102 MMOL/L (98-107); POTASSIUM 3.5 MMOL/L (3.6-5.0); SODIUM 139 MMOL/L (135-145)
[2020-02-13 02:23] LABS: GLUCOSE 110 MG/DL (70-105)
[2020-02-13 02:25] LABS: CARBON DIOXIDE 28 MMOL/L (21-32)
[2020-02-13 02:27] LABS: CREATININE SERUM 0.58 MG/DL (0.60-1.30); GFR ESTIMATED > 60; PHOSPHORUS 2.6 MG/DL (2.3-4.7)
[2020-02-13 02:28] LABS: BUN/CREATININE RATIO 19
[2020-02-13] MEDS: RT-ALBUTEROL INHALER HFA (VENTOLIN HFA) 18 GM IH SCH ×4 (02:58→18:36)
[2020-02-13] MEDS: IPRATROPIUM INHALER (ATROVENT) 12.9 GM INH SCH ×4 (02:58→18:36)
[2020-02-13] MEDS: POTASSIUM CL 10MEQ/50ML IVPB 50 ML IV SCH ×4 (03:41→04:38)
[2020-02-13] MEDS: MAGNESIUM 1 GM/100 ML IVPB 100 ML IV SCH (03:44)
[2020-02-13] MEDS: KCL 20 MEQ TAB (K-DUR) PO SCH (03:44)
[2020-02-13] MEDS: NOREPINEPHRINE 4 MG/250 ML 250 ML IV SCH ×4 (03:44→19:59)
[2020-02-13] MEDS: ENOXAPARIN 100 MG/1 ML (LOVENOX) SYR SC SCH ×2 (04:39→16:53)
--- NOTE | 2020-02-13 04:45 | NUR ---
All sedation on hold at this time for weaning.
--- NOTE | 2020-02-13 04:59 | Pulmonary Progress Note ---
Subjective Time Seen by a Provider: 04:50 Subjective/Events-last exam Pt is awake on vent. Sepsis Event Evaluation Height, Weight, BMI Height: '" Weight: lbs. oz. kg; 30.00 BMI Method: Exam Exam Vital Signs Date Time Temp Pulse Resp B/P (MAP) Pulse Ox O2 Delivery O2 Flow Rate FiO2 02/13/20 03:40 97 Mechanical Ventilator 35 02/13/20 03:20 36.9 64 36 93/60 (71) 95 Mechanical Ventilator 35.00 02/13/20 02:58 74 34 94 35 02/13/20 02:20 36.5 62 27 95/71 (79) 96 Mechanical Ventilator 35.00 02/13/20 02:10 59 148/86 02/13/20 01:20 36.6 53 27 148/88 (108) 97 Mechanical Ventilator 35.00 02/13/20 01:00 56 02/13/20 00:05 36.8 60 27 114/74 (87) 96 Mechanical Ventilator 35.00 02/12/20 23:30 96 Mechanical Ventilator 35 02/12/20 23:30 72 96/57 02/12/20 23:30 72 96/57 02/12/20 23:18 65 29 94 35 02/12/20 23:05 36.7 90 17 102/64 (77) 93 Mechanical Ventilator 35.00 02/12/20 22:05 36.8 67 28 110/71 (84) 94 Mechanical Ventilator 35.00 02/12/20 21:05 37.1 66 27 104/68 (80) 95 Mechanical Ventilator 35.00 02/12/20 20:17 77 113/66 02/12/20 20:05 37.2 67 27 113/66 (82) 95 Mechanical Ventilator 35.00 02/12/20 20:00 Mechanical Ventilator 35.00 02/12/20 20:00 95 Mechanical Ventilator 35 02/12/20 19:22 75 38 96 35 02/12/20 19:05 37.0 74 14 134/79 (97) 95 Mechanical Ventilator 35.00 02/12/20 19:00 72 02/12/20 18:00 36.7 65 26 102/63 (76) 98 Mechanical Ventilator 35.00 02/12/20 17:00 36.6 53 28 92/58 (69) 95 Mechanical Ventilator 35.00 02/12/20 16:42 50 120/83 02/12/20 16:41 50 120/83 02/12/20 16:00 36.8 54 28 113/69 (84) 97 Mechanical Ventilator 35.00 02/12/20 15:25 96 Mechanical Ventilator 35 02/12/20 15:00 37.3 56 28 128/80 (96) 92 Mechanical Ventilator 35.00 02/12/20 14:38 69 29 97 35 02/12/20 14:00 37.6 78 11 119/75 (90) 92 Mechanical Ventilator 35.00 02/12/20 13:56 68 120/75 02/12/20 13:17 37.8 02/12/20 13:00 37.8 73 19 122/88 (99) 96 Mechanical Ventilator 35.00 02/12/20 12:40 70 02/12/20 12:02 38.1 02/12/20 12:00 38.1 76 15 124/77 (93) 96 Mechanical Ventilator 35.00 02/12/20 12:00 95 Mechanical Ventilator 35 02/12/20 11:31 75 33 95 35 02/12/20 11:00 37.9 87 16 126/68 (87) 96 Mechanical Ventilator 35.00 02/12/20 10:32 63 118/76 02/12/20 10:31 63 118/76 02/12/20 10:00 38.0 68 18 109/74 (86) 96 Mechanical Ventilator 35.00 02/12/20 09:00 38.0 86 13 115/69 (84) 94 Mechanical Ventilator 35.00 02/12/20 08:03 82 99/65 02/12/20 08:00 92 Mechanical Ventilator 35 02/12/20 08:00 37.9 85 28 106/70 (82) 96 Mechanical Ventilator 35.00 02/12/20 07:00 37.3 97 10 99/65 (76) 89 Mechanical Ventilator 35.00 02/12/20 06:56 96 34 90 35 02/12/20 06:42 76 02/12/20 06:00 36.9 84 22 98/59 (72) 92 Mechanical Ventilator 35.00 02/12/20 05:00 36.5 59 28 96/53 (67) 97 Mechanical Ventilator 35.00 I & O 02/13/20 07:00 Intake Total 5620 ml Output Total 6175 ml Balance -555 ml Height & Weight Height: '" Weight: lbs. oz. kg; 30.00 BMI Method: General Appearance: Mild Distress (tachypnea), Other (intubated and sedated) HEENT: Other (ET/OG in place) Respiratory: Lungs Clear, Normal Breath Sounds, Respiratory Distress (tachypnea), Other (intubated and mechanically ventilated) Cardiovascular: Regular Rate, Rhythm, No Edema, No Murmur Capillary Refill: Less Than 3 Seconds Gastrointestinal: normal bowel sounds, soft Extremity: Normal Inspection, No Pedal Edema Neurologic/Psychiatric: Other (sedated) Skin: Normal Color, Warm/Dry Results Lab Laboratory Tests 02/12/20 03:25 02/13/20 01:55 Assessment/Plan Assessment/Plan Acute respiratory failure with improving ARDS- -Precedex propofol, and fentanyl -Will start weaning vent today - Lasix -TF - decadron 20mg daily -s/p Remdesivir tx -MRSA swab is neg. PNA with Enterobactor -Continue Merrem, Eraxais --02/04 = Pt had worsening leukocytosis and fever of 101 -Diflucan changed back to eraxis -Changed Zosyn to Merrem on 02/04 -Repeat sputum does show enterobater is resistant to Zosyn and sensitive to Merrem. Frequent PVCs -Give 150mg of Amiodarone and start gtt. -Consult cardiology hypokalemia -replace HTN -Lopressor started -Hydralazine PRN STEFANI FORDE DO Feb 13, 2020 04:59
[2020-02-13] MEDS ORDERED: LORazepam INJ 2 MG/ML (ATIVAN) VIAL ONE (05:30)
--- NOTE | 2020-02-13 05:48 | NUR ---
Patient extubated to VT at this time 40L/100%. Extubated by Kristen Camara RN present for translation. Patient following commands.
[2020-02-13] MEDS ORDERED: D5W 100 ML IVPB 100 ML IV ONE (05:49)
[2020-02-13] MEDS ORDERED: AMIODARONE (OMNICELL DRIP KIT) 150 MG/3 ML IV ONE (05:49)
[2020-02-13] MEDS ORDERED: AMIODARONE INJECTION 450 MG in D5W IV SOLUTION (EXCEL) 250 ML IV SCH (06:00)
[2020-02-13] MEDS ORDERED: AMIODARONE INJECTION 150 MG in D5W 100 ML IVPB 100 ML IV ONE ×4 (06:00)
[2020-02-13] MEDS ORDERED: D5W IV SOLUTION (EXCEL) 0 ML IV ONE (06:06)
[2020-02-13] MEDS ORDERED: AMIODARONE 450 MG/9 ML (CORDARONE) VIAL IV ONE (06:06)
[2020-02-13] MEDS: AMIODARONE INJECTION 450 MG in D5W IV SOLUTION (EXCEL) 250 ML IV SCH ×2 (06:17→13:33)
[2020-02-13] MEDS: FUROSEMIDE 40 MG/4 ML INJ (LASIX) IVP SCH ×2 (09:37→21:29)
[2020-02-13] MEDS: meTOprolol TARTRATE 25 MG (LOPRESSOR) TABLET PO SCH (09:37)
[2020-02-13] MEDS: PANTOPRAZOLE 40 MG (PROTONIX) VIAL IV SCH (09:37)
[2020-02-13] MEDS: ANIDULAFUNGIN INJECTION 100 MG in NS (IVPB) 100 ML IV SCH (09:37)
[2020-02-13] MEDS: DOCUSATE SODIUM 10 MG/ML 10 ML UDC (COLACE) PO SCH ×2 (09:37→19:59)
[2020-02-13] MEDS: [UNRECOGNIZED DRUG - OTHER] IV SCH (09:37)
--- NOTE | 2020-02-13 09:57 | NUR ---
turned vapotherm down to 90% Addendum: 02/13/20 at 0957 by RACHAEL ALTMAN RT Amended: Links added.
--- NOTE | 2020-02-13 11:44 | NUR ---
LATE ENTRY: ASSESSMENT COMPLETE SEE FLOW SHEET, PT SITTING UP IN BED, AWAKE, ALERT, DUE TO LANGUAGE BARRIER, THIS RN CALLED LANGUAGE LINE AND STAFF UNABLE TO HEAR THIS RN OR HEAR PT. THIS RN THEN CALLED PT'S NEPHEW MAYELIN WHOM WAS ABLE TO COMMUNICATE WITH PT AND THIS RN. PT NOTED TO HAVE SOME GARBLED SPEECH, HOWEVER MAYELIN ABLE TO UNDERSTAND. ALL PT'S NEEDS WERE MET WHILE COMMUNICATING WITH FAMILY.
--- NOTE | 2020-02-13 13:01 | NUR ---
DR NGUYEN NOTIFIED OF PT'S NPO STATUS NEW ORDERS RECEIVED SEE ORDER HX.
--- NOTE | 2020-02-13 15:35 | Consultation-Cardiology ---
HPI-Cardiology Cardiology Consultation: Date of Consultation 02/13/20 Date of Admission Attending Physician Miguel Renteria DO Admitting Physician Consulting Physician Demario BELLO MD HPI: Time Seen by a Provider: 12:45 Chief Complaint: PVCs This is a 54-year-old gentleman who is had a prolonged hospitalization for COVID-19 related acute respiratory failure and sepsis. Patient was intubated and ventilated. Also had an episode of paroxysmal atrial fibrillation. In sinus rhythm. However cardiology consultation for frequent PVCs. Patient denies any chest pain or shortness of breath. Patient was already started on amiodarone. Review of Systems-Cardiology Review of Systems Constitutional: As described under HPI; No As described under HPI, No no symptoms reported, No chills, No fever, No lightheadedness Eyes: No As described under HPI, No no symptoms reported, No blindness, No blurred vision, No contact lenses, No drainage, No decreased acuity, No foreign body sensation, No pain, No vision change Ears/Nose/Throat: No As described under HPI, No no symptoms reported, No chronic hearing loss, No ear discharge, No ear pain, No nasal drainage, No ulcerations Respiratory: No no symptoms reported; As described under HPI; No As described under HPI, No cough, No orthopnea, No shortness of breath, No SOB with excertion Cardiovascular: No no symptoms reported; As described under HPI; No As described under HPI, No chest pain, No edema, No irregular heart rate, No l ightheadedness, No palpitations Gastrointestinal: No no symptoms reported, No As described under HPI, No a bdomen distended, No abdominal pain, No blood streaked bowels, No constipation, No diarrhea, No nausea, No vomiting, No stool coloration changes Genitourinary: No As described under HPI, No burning, No dysuria, No discharge, No frequency, No flank pain, No hematuria, No urgency Skin: No rash, No skin related problems, No ulcerations Psychiatric/Neurological: No anxiety, No depression, No seizure, No focal weakness, No syncope Hematologic: No bleeding abnormalities [id number] Hx Patient Social History Alcohol Use: Denies Use Recreational Drug Use: No Smoking Status: Unknown if Ever Smoked Recent Foreign Travel: No Recent Infectious Disease Expo: No Hospitalization with Isolation: Denies Past Medical History PMH As described under Assessment. Allergies and Home Medications Allergies Coded Allergies: No Known Drug Allergies (Unverified , 01/25/20) Patient Home Medication List Home Medication List Reviewed: Yes Physical Exam-Cardiology Physical Exam Vital Signs/I&O 02/18/20 02/18/20 02/18/20 02/18/20 03:00 03:26 04:00 04:00 Temp 36.7 Pulse 71 71 Resp 16 15 B/P (MAP) 133/83 (100) 130/83 (99) Pulse Ox 100 98 97 O2 Delivery Nasal Cannula Nasal Cannula Nasal Cannula O2 Flow Rate 1.50 1.50 1.50 02/18/20 02/18/20 02/18/20 02/18/20 04:00 05:00 06:00 07:00 Pulse 71 76 66 Resp 18 17 18 B/P (MAP) 137/75 (95) 129/75 (93) 114/85 (95) Pulse Ox 97 97 91 97 O2 Delivery Nasal Cannula Nasal Cannula Nasal Cannula Nasal Cannula O2 Flow Rate 1.50 1.50 1.50 1.50 02/18/20 02/18/20 02/18/20 02/18/20 07:05 08:00 08:20 08:29 Temp 38.0 Pulse 86 70 Resp 20 B/P (MAP) 138/85 (102) Pulse Ox 98 97 O2 Delivery Nasal Cannula Nasal Cannula O2 Flow Rate 1.50 1.50 02/18/20 02/18/20 02/18/20 02/18/20 09:00 10:00 11:00 11:34 Pulse 67 71 65 Resp 32 24 41 B/P (MAP) 127/80 (96) 116/68 (84) 122/73 (89) Pulse Ox 97 95 95 95 O2 Delivery Nasal Cannula Nasal Cannula Nasal Cannula Nasal Cannula O2 Flow Rate 1.50 1.50 1.50 2.00 02/18/20 02/18/20 02/18/20 12:00 13:00 13:09 Temp 36.2 Pulse 72 72 Resp 27 44 B/P (MAP) 123/79 (94) 139/93 (108) Pulse Ox 89 98 O2 Delivery Nasal Cannula Nasal Cannula O2 Flow Rate 1.50 1.50 02/18/20 00:00 Intake Total 525 ml Output Total 750 ml Balance -225 ml Capillary Refill : Less Than 3 Seconds Constitutional: appears stated age, AAO x 3; No apparent distress; well- developed, well-nourished HEENT: PERRL; No discharge; hearing is well preserved, oral hygience is good; No ulceration, No xanthelasmas are seen Neck: No carotid bruit; carotid pulses are 2 + bilaterally Respiratory: chest is bilaterally symmetric, lungs clear to auscultation Cardiovascular: regular rate-rhythm, extra beats, S1 and S2 Gastrointestinal: soft, audible bowel sounds; No spleenomegaly Rectal: deferred Extremities: normal range of motion, non-tender, normal inspection; No clubbing, No cyanosis; no lower extremity edema bilateral; No significant edema Neurologic/Psychiatric: no motor/sensory deficits, alert, oriented x 3, depressed affect, power is 5/5 both on sides Skin: normal color, warm/dry; No rash, No ulcerations Data Review Labs Laboratory Tests 02/17/20 18:37: White Blood Count 18.6H, Red Blood Count 4.09L, Hemoglobin 12.3L, Hematocrit 37L , Mean Corpuscular Volume 91, Mean Corpuscular Hemoglobin 30, Mean Corpuscular Hemoglobin Concent 33, Red Cell Distribution Width 14.3, Platelet Count 464H, Mean Platelet Volume 9.8, Neutrophils (%) (Auto) 87H, Lymphocytes (%) (Auto) 6L, Monocytes (%) (Auto) 7, Eosinophils (%) (Auto) 0, Basophils (%) (Auto) 0, Neutrophils # (Auto) 16.2H, Lymphocytes # (Auto) 1.1, Monocytes # (Auto) 1.2H, Eosinophils # (Auto) 0.0, Basophils # (Auto) 0.0, Sodium Level 141, Potassium Level 4.3, Chloride Level 103, Carbon Dioxide Level 24, Anion Gap 14, Blood Urea Nitrogen 23H, Creatinine 0.80, Estimat Glomerular Filtration Rate > 60, BUN/Creatinine Ratio 29, Glucose Level 188H, Calcium Level 8.8, Corrected Calcium 9.4, Phosphorus Level 2.5, Magnesium Level 2.1, Total Bilirubin 0.7, Aspartate Amino Transf (AST/SGOT) 22, Alanine Aminotransferase (ALT/SGPT) 31, Alkaline Phosphatase 111, Total Protein 6.8, Albumin 3.3 02/17/20 20:20: Prothrombin Time 19.0H, INR Comment 1.6H, Activated Partial Thromboplast Time 38H, Fibrinogen 231, D-Dimer 2.31H, Thyroid Stimulating Hormone (TSH) 1.34 02/18/20 02:40: White Blood Count 10.1, Red Blood Count 3.34L, Hemoglobin 9.8#L, Hematocrit 31L, Mean Corpuscular Volume 93, Mean Corpuscular Hemoglobin 29, Mean Corpuscular Hemoglobin Concent 32, Red Cell Distribution Width 14.0, Platelet Count 287, Mean Platelet Volume 9.8, Neutrophils (%) (Auto) 77H, Lymphocytes (%) (Auto) 12, Monocytes (%) (Auto) 11, Eosinophils (%) (Auto) 0, Basophils (%) (Auto) 0, Neutrophils # (Auto) 7.7, Lymphocytes # (Auto) 1.2, Monocytes # (Auto) 1.1H, Eosinophils # (Auto) 0.0, Basophils # (Auto) 0.0, Sodium Level 132L, Potassium Level 3.6, Chloride Level 99, Carbon Dioxide Level 24, Anion Gap 9, Blood Urea Nitrogen 22H, Creatinine 0.74, Estimat Glomerular Filtration Rate > 60, BUN/Creatinine Ratio 30, Glucose Level 357H, Calcium Level 7.8L, Phosphorus Level 2.5, Magnesium Level 1.9 Microbiology 02/14/20 Blood Culture - Preliminary, Resulted No growth 02/14/20 MRSA Screen - Final, Complete MRSA not isolated 01/25/20 Urine Culture - Final, Complete NO GROWTH A/P-Cardiology Assessment/Admission Diagnosis Acute respiratory failure due to active COVID-19 infection, Frequent PVCs Plan Frequent PVC: Continue amiodarone. Metoprolol 5 mg IV every 6. Continue telemetry. Acute hypoxemic vessel dirty failure due to COVID-19 with acute respiratory distress syndrome and secondary pneumonia, deferred to the primary team. Thank you for your consultation. Please call me if you have any questions. Peter Bello MD, FACP, FACC, FSCAI, FHRS, CCDS Interventional Cardiology Cardiac Electrophysiology Vascular Medicine and Endovascular Interventions Clinical Quality Measures DVT/VTE Risk/Contraindication: Risk Factor Score Per Nursin RFS Level Per Nursing on Admit: 4+=Very High Demario BELLO MD Feb 13, 2020 15:35
[2020-02-13] MEDS: meTOprolol 5 MG/5 ML (LOPRESSOR) VIAL IV SCH ×2 (16:54→23:37)
[2020-02-13] MEDS: D5 LR IV SOLUTION 1,000 ML IV SCH (21:29)
[2020-02-14] VITALS (23 sets, daily range): BP systolic 107–165; BP diastolic 65–112
[2020-02-14] MEDS ORDERED: ALBUTEROL/IPRATROP (COMBIVENT RESPIMAT) 4 GM INHALER IH SCH
[2020-02-14] MEDS: IPRATROPIUM INHALER (ATROVENT) 12.9 GM INH SCH ×2 (02:35→07:12)
[2020-02-14] MEDS: RT-ALBUTEROL INHALER HFA (VENTOLIN HFA) 18 GM IH SCH ×2 (02:45→07:12)
[2020-02-14 03:07] LABS: BASOPHILS % (AUTO) 0 % (0-10); EOSINOPHILS # (AUTO) 0.1 10^3/uL (0.0-0.3); EOSINOPHILS % (AUTO) 1 % (0-10); HEMATOCRIT 37 % (40-54); HEMOGLOBIN 12.2 G/DL (13.3-17.7); LYMPHOCYTES # (AUTO) 1.1 X 10^3 (1.0-4.0); LYMPHOCYTES % (AUTO) 5 % (12-44); MEAN CORPUSCULAR HEMOGLOBIN 30 PG (25-34); MEAN CORPUSCULAR HGB CONC 33 G/DL (32-36); MEAN CORPUSCULAR VOLUME 92 FL (80-99); MONOCYTES # (AUTO) 1.5 X 10^3 (0.0-1.0); MONOCYTES % (AUTO) 6 % (0-12); NEUTROPHILS # (AUTO) 20.3 X 10^3 (1.8-7.8); NEUTROPHILS % (AUTO) 88 % (42-75); PLATELET COUNT 361 10^3/uL (130-400)
[2020-02-14 03:19] LABS: CHLORIDE 100 MMOL/L (98-107); POTASSIUM 3.4 MMOL/L (3.6-5.0); SODIUM 141 MMOL/L (135-145)
[2020-02-14 03:20] LABS: CALCIUM 8.8 MG/DL (8.5-10.1)
[2020-02-14 03:21] LABS: GLUCOSE 117 MG/DL (70-105); TRIGLYCERIDES 274 MG/DL (<150)
[2020-02-14 03:22] LABS: CARBON DIOXIDE 29 MMOL/L (21-32)
[2020-02-14 03:24] LABS: PHOSPHORUS 2.1 MG/DL (2.3-4.7)
[2020-02-14 03:25] LABS: BUN/CREATININE RATIO 21; CREATININE SERUM 0.63 MG/DL (0.60-1.30); GFR ESTIMATED > 60
[2020-02-14 03:27] LABS: MAGNESIUM 2.1 MG/DL (1.6-2.4)
[2020-02-14 03:37] LABS: BAND NEUTROPHILS 1 %; LYMPHOCYTES % (MANUAL) 4 %; MONOCYTES % (MANUAL) 7 %; NEUTROPHILS % (MANUAL) 88 %
[2020-02-14 03:38] LABS: STOMATOCYTES MARKED
[2020-02-14] MEDS: DexMEDEtomidine 250 ML DRIP 250 ML IV SCH (03:57)
[2020-02-14] MEDS: AMIODARONE INJECTION 450 MG in D5W IV SOLUTION (EXCEL) 250 ML IV SCH ×2 (03:58→20:31)
[2020-02-14] MEDS: POTASSIUM CL 10MEQ/50ML IVPB 50 ML IV SCH ×4 (04:59→05:58)
[2020-02-14] MEDS: KCL 20 MEQ TAB (K-DUR) PO SCH (05:00)
[2020-02-14] MEDS: MAGNESIUM 1 GM/100 ML IVPB 100 ML IV SCH (05:00)
[2020-02-14] MEDS: ENOXAPARIN 100 MG/1 ML (LOVENOX) SYR SC SCH ×2 (05:07→18:06)
[2020-02-14] MEDS: meTOprolol 5 MG/5 ML (LOPRESSOR) VIAL IV SCH ×3 (05:08→18:06)
[2020-02-14] MEDS ORDERED: PHARMACY TO DOSE IV SCH (05:30)
[2020-02-14] MEDS ORDERED: VANCOMYCIN INJECTION 1,000 MG in NS (IVPB) 250 ML IV SCH (05:30)
--- NOTE | 2020-02-14 05:32 | Pulmonary Progress Note ---
Subjective Time Seen by a Provider: 05:27 Subjective/Events-last exam Currently on Vapotherm. Sepsis Event Evaluation Height, Weight, BMI Height: '" Weight: lbs. oz. kg; 30.00 BMI Method: Exam Exam Vital Signs Date Time Temp Pulse Resp B/P (MAP) Pulse Ox O2 Delivery O2 Flow Rate FiO2 02/14/20 04:25 38.0 74 22 119/71 (87) 97 Vapotherm 25.00 60.00 02/14/20 03:57 80 02/14/20 03:56 Vapotherm 25.00 60.00 02/14/20 03:19 38.1 78 20 126/83 (97) 97 Vapotherm 20.00 55.00 02/14/20 03:10 98 Vapotherm 20.00 55 02/14/20 03:00 Vapotherm 20.00 55.00 02/14/20 02:50 94 Vapotherm 20.00 55 02/14/20 02:49 38.1 85 14 139/86 (103) 93 Vapotherm 20.00 60.00 02/14/20 01:40 38.1 80 25 92 Vapotherm 20.00 60.00 02/14/20 01:20 38.0 125/85 (98) Vapotherm 30.00 60.00 02/14/20 01:00 75 02/14/20 00:24 38.0 81 29 128/84 (99) 96 Vapotherm 30.00 65.00 02/13/20 23:40 98 Vapotherm 30.00 65 02/13/20 23:24 37.9 85 32 137/90 (106) 94 Vapotherm 30.00 65.00 02/13/20 22:24 37.8 82 25 134/85 (101) 91 Vapotherm 30.00 65.00 02/13/20 21:37 Vapotherm 30.00 65.00 02/13/20 21:35 98 Vapotherm 40.00 85 02/13/20 21:00 37.7 66 20 113/90 (98) 100 Vapotherm 30.00 75.00 02/13/20 20:01 Vapotherm 30.00 75.00 02/13/20 20:00 37.6 80 19 113/75 (88) 98 Vapotherm 30.00 75.00 02/13/20 20:00 98 Vapotherm 30.00 75 02/13/20 19:53 Vapotherm 30.00 75.00 02/13/20 19:00 37.7 Vapotherm 40.00 90.00 02/13/20 19:00 69 02/13/20 19:00 37.7 69 18 138/93 (108) 100 Vapotherm 30.00 75.00 02/13/20 18:38 85 Vapotherm 40.00 85 02/13/20 18:35 70 150/93 02/13/20 18:15 37.7 70 20 150/93 (112) 100 Vapotherm 40.00 40.00 02/13/20 17:15 37.5 78 17 130/86 (101) 100 Vapotherm 40.00 40.00 02/13/20 16:15 37.5 81 21 150/130 (137) 99 Vapotherm 40.00 40.00 02/13/20 15:15 37.5 92 28 145/92 (109) 99 Vapotherm 40.00 40.00 02/13/20 14:15 98 Vapotherm 40.00 95 02/13/20 14:15 37.3 77 23 144/126 (132) 97 Vapotherm 40.00 40.00 02/13/20 13:56 37.4 95 20 137/77 (97) 98 Vapotherm 40.00 40.00 02/13/20 13:20 95 137/77 02/13/20 13:15 37.5 90 50 128/93 (105) 98 Vapotherm 30.00 80.00 02/13/20 12:55 98 Vapotherm 40.00 80 02/13/20 12:43 95 137/77 02/13/20 12:38 90 02/13/20 12:15 37.5 93 22 143/92 (109) 98 Vapotherm 30.00 80.00 02/13/20 11:15 37.4 95 48 137/77 (97) 97 Vapotherm 30.00 80.00 02/13/20 10:15 37.2 93 43 145/99 (114) 95 Vapotherm 30.00 80.00 02/13/20 09:49 98 Vapotherm 40.00 100 02/13/20 09:15 37.2 101 27 146/84 (104) 98 Vapotherm 30.00 80.00 02/13/20 08:35 96 Vapotherm 40.00 80 02/13/20 08:15 37.3 72 18 147/86 (106) 100 Vapotherm 30.00 80.00 02/13/20 07:15 37.4 81 31 126/85 (99) 99 Vapotherm 30.00 80.00 02/13/20 06:47 90 Vapotherm 40.00 100 02/13/20 06:41 79 02/13/20 06:25 Vapotherm 30.00 80.00 02/13/20 06:20 37.7 78 22 135/89 (104) 100 Vapotherm 40.00 100.00 02/13/20 05:59 115 02/13/20 05:50 37.7 118 30 130/91 (104) 89 Vapotherm 40.00 100.00 02/13/20 05:48 Vapotherm 40.00 100.00 I & O 02/14/20 07:00 Intake Total 1739 ml Output Total 7550 ml Balance -5811 ml Height & Weight Height: '" Weight: lbs. oz. kg; 30.00 BMI Method: General Appearance: Mild Distress (tachypnea), Other (intubated and sedated) HEENT: Other (ET/OG in place) Respiratory: Lungs Clear, Normal Breath Sounds, Respiratory Distress (tachypnea), Other (intubated and mechanically ventilated) Cardiovascular: Regular Rate, Rhythm, No Edema, No Murmur Capillary Refill: Less Than 3 Seconds Gastrointestinal: normal bowel sounds, soft Extremity: Normal Inspection, No Pedal Edema Neurologic/Psychiatric: Other (sedated) Skin: Normal Color, Warm/Dry Results Lab Laboratory Tests 02/13/20 01:55 02/14/20 02:55 Assessment/Plan Assessment/Plan Acute respiratory failure with improving ARDS- -Extubated 02/02 -Continue Vapotherm for now - Lasix - Will D/C after this AMs dose - decadron 20mg daily -s/p Remdesivir tx 02/13 worsening leukocytosis and fever -Add Vancomycin -repeat delgado cultures -repeat MRSA nasal swab PNA with Enterobactor -Continue Merrem, Eraxais --02/04 = Pt had worsening leukocytosis and fever of 101 -Diflucan changed back to eraxis -Changed Zosyn to Merrem on 02/04 -Repeat sputum does show enterobater is resistant to Zosyn and sensitive to Merrem. Frequent PVCs - Amiodarone gtt, Lopressor -cardiology consulted hypokalemia, hypophos -replace HTN -Lopressor -Hydralazine PRN STEFANI FORDE DO Feb 14, 2020 05:32
[2020-02-14] MEDS ORDERED: morphine INJ 4 MG/ML 1 ML (VIAL/SYRINGE) IVP PRN (05:45)
[2020-02-14] MEDS: MEROPENEM 500 MG/SWFI 10 ML IV PUSH IV SCH ×6 (05:58→18:06)
[2020-02-14 06:23] LABS: CLARITY,URINE CLEAR; COLOR,URINE ORANGE; GLUCOSE, URINE (UA) NEGATIVE (NEGATIVE); KETONES,URINE 1+ (NEGATIVE); LEUKOCYTE ESTERASE ,URINE NEGATIVE (NEGATIVE); NITRITE,URINE NEGATIVE (NEGATIVE); PROTEIN,URINE 1+ (NEGATIVE)
[2020-02-14 06:34] LABS: BILIRUBIN,URINE 1+ (NEGATIVE); RBC,URINE >100 /HPF
[2020-02-14 06:35] LABS: BACTERIA,URINE TRACE /HPF
--- NOTE | 2020-02-14 06:37 | NUR ---
PTD VANCOMYCIN LABS: SCR 0.63 PLAN: 20MG/KG LOAD (1,750MG IV X 1 NOW) THEN 15MG/KG IV Q12H (1,500MG) NEXT DOSE AT 1900, WILL CHECK A TROUGH LEVEL PRIOR TO 4TH DOSE 02/14 @1800.
[2020-02-14] MEDS ORDERED: VANCOMYCIN 1,750 MG/NS 500 ML IVPB IV NR ×2 (07:30)
--- NOTE | 2020-02-14 07:43 | Diagnostic Imaging Report ---
INDICATION: Shortness of breath. Comparison with 02/12/2020. FINDINGS: ET tube has been removed as has NG tube. Right PICC line remains in good position. There has been development of some atelectasis bilaterally. Continued bilateral alveolar infiltrates throughout both lungs. No pneumothorax or pleural effusion. IMPRESSION: Expiratory chest with bilateral atelectasis and persistent bilateral infiltrates. Dictated by: Dictated on workstation # [id number]
[2020-02-14] MEDS: FUROSEMIDE 40 MG/4 ML INJ (LASIX) IVP SCH (08:33)
[2020-02-14] MEDS: [UNRECOGNIZED DRUG - OTHER] IV SCH (08:33)
[2020-02-14] MEDS: PANTOPRAZOLE 40 MG (PROTONIX) VIAL IV SCH (08:33)
[2020-02-14] MEDS: ANIDULAFUNGIN INJECTION 100 MG in NS (IVPB) 100 ML IV SCH (08:34)
[2020-02-14] MEDS: DOCUSATE SODIUM 10 MG/ML 10 ML UDC (COLACE) PO SCH ×2 (08:34→20:31)
--- NOTE | 2020-02-14 08:48 | ST Dysphagia Evaluation ---
Speech Evaluation-General Medical Diagnosis Acute Respiratory Failure Onset Date: Jan 25, 2020 Therapy Diagnosis Therapy Diagnosis: Oropharyngeal Dysphagia Precautions Precautions: Aspiration Referral Referring Physician: Dr. Renteria Medical History Pertinent Medical History: HTN Reviewed History: Yes Speech PLF/Current-Dysphagia Prior Level of Function Patient does not speak [place], however it is presumed he was independent prior to his hospitalization. Subjective Patient was pleasant and cooperative with the Bedside Dysphagia Evaluation. Oral Motor Skills Dentition: Natural, Tumbled, Stained Ability to Follow Directions: Good Patient is NPO pending BDE. Patient does not speak [place] Face Facial Symmetry: Symmetrical Oral-Facial Assessment Oral-Facial Dentition: Normal Labial Seal Description: Normal Smile: Normal Lingual Protrusion: Normal Lingual ROM: Normal Lingual Strength: Normal Pharynx Velopharyngeal Move.: Normal Volitional Dry Swallow: Yes Voluntary Cough: Yes Can Clear Throat Volitionally: Yes Dysphagia Evaluation Consistencies Presented: Regular, Thin Liquid, Mechanical Soft, Pureed Oral phase is within normal range of function for all consistencies presented. Pharyngeal phase is within normal range of function for all consistencies presented. Dietary Recommendations: Regular Liquid Recommendations: Thin Swallowing Precautions: Alternate Liquids/Solids, Decreased Bolus 1/2 Tsp, Liquids from Straw, Small Bites and Sips, Sitting Upright 90 Degrees, Sitting 90 Degrees 30 Post Intake Dysphagia Evaluation Summary Patient was sitting up in the chair for BDE. Patient was noted to have all natural teeth. Patient does not speak [place] but with a few Armenian words and gestures, patient was able to complete the evaluation without difficulty. Patient was presented 1/2 tsp of thin liquids x2 and small sips via straw x2 without difficulty. Patient was also given 1/2 tsp bite size of puree, mechanical soft and regular without difficulty. Patient is recommended for regular diet level with thin liquids. This information was provided for his nurse, Lorrie and written on the white board in his room. Barriers to Learning Patient does not speak [place] Speech-Plan Patient/Family Goals Patient/Family Goals: Patient's plans are unknown. Treatment Plan Speech Therapy Treatment Plan: Discontinue ST Treatment Duration: Feb 14, 2020 Frequency: 1 time per week Estimated Hrs Per Day: .25 hour per day Rehab Potential: Good Barriers to Learning: Patient does not speak [place] Pt/Family Agrees to Plan: Yes Safety Risks/Education Teaching Recipient: Patient Teaching Methods: Discussion Response to Teaching: Verbalize Understanding, Reinforcement Needed Education Topics Provided: Safety of oral intake and diet level Time Speech Therapy Time In: 08:15 Speech Therapy Time Out: 08:30 Total Billed Time: 15 Billed Treatment Time 1 JEOVANNY Miranda Feb 14, 2020 08:48
[2020-02-14] MEDS ORDERED: POTASSIUM PHOSPHATE INJ 30 MM in NS (IVPB) 250 ML IV ONE (09:00)
--- NOTE | 2020-02-14 10:50 | Physical Therapy Evaluation ---
PT Evaluation-General Medical Diagnosis Admission Date Jan 25, 2020 at 13:32 Medical Diagnosis: Acute Respiratory Failure Onset Date: Jan 25, 2020 Therapy Diagnosis Therapy Diagnosis: impaired mobility, strength, endurance Precautions Precautions/Isolations: Airborne Isolation, Fall Prevention Weight Bear Status Right Lower Extremity: Right Weight Bearing/Tolerated Left Lower Extremity: Left Weight Bearing/Tolerated Referral Physician: Myra Reason for Referral: Evaluation/Treatment Medical History Pertinent Medical History: HTN Reviewed History: Yes Social History Unknown Prior Prior Level of Function SCALE: Activities may be completed with or without assistive devices. 5-Jxeyjinszu-jhezxsj completes the activity by him/herself with no assistance f rom a helper. 5-Set-up or Clean-up Assistance-helper sets up or cleans up; patient completes activity. [place] assists only prior to or following the activity. 4-Supervision or Touching Assistance-helper provides verbal cues and/or touching/steadying and/or contact guard assistance as patient completes activity. Assistance may be provided throughout the activity or intermittently. 3-Partial/Moderate Assistance-helper does LESS THAN HALF the effort. [place] lifts, holds or supports trunk or limbs, but provides less than half the effort. 2-Substantial/Maximal Assistance-helper does MORE THAN HALF the effort. [place] lifts or holds trunk or limbs and provides more than half the effort. 3-Vnufrgbse-zcozfx does ALL the effort. Patient does none of the effort to complete the activity. Or, the assistance of 2 or more helpers is required for the patient to complete the activity. If activity was not attempted, code reason: 7-Patient Refused. 9-Not Applicable-not attempted and the patient did not perform the activity before the current illness, exacerbation or injury. 10-Not Attempted due to Environmental Limitations-(lack of equipment, weather restraints, etc.). 88-Not Attempted due to Medical Conditions or Safety Concerns. unknown PT Evaluation-Current Subjective Patient in bed pre tx, agrees to PT, used non-verbal communication to indicate that we would like to get him to the side of the bed and he agrees. Patient doesn't speak iranian. Pt/Family Goals none stated Objective Patient Orientation: Person, Unable to Assess Attachments: Oxygen, Wilson Catheter, IV vapotherm ROM/Strength ROM Lower Extremities WNL, dorsiflexion barely can get to neutral Strength Lower Extremities 2/5 gross BLE Sensory Vision: Functional Hearing: Functional Transfers Roll Left to Right (QC): 1 Sit to Lying (QC): 1 Lying to Sitting/Side of Bed(Q: 1 Patient dependent for supine to sit, he was able to sit for only about 2 minutes before indicating that he needed to lay back down. he was able to perform about 10 partial LAQ but could not perform ankle pumps. His O2 would go down to the high 80's but come up when cued to breathe. After laying back down it came back up into the low 90's. Assessment/Needs Patient has impaired mobility, strength, endurance. He is dependent for mobility at this time. 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 Operator Goals Drill Operator Goals PT Drill Operator Goals Time Frame: Feb 21, 2020 Roll Left & Right (QC): 3 Sit to Lying (QC): 3 Lying-Sitting on Side/Bed(QC): 3 Sit to Stand (QC): 3 Chair/[id number]-[id number] Xfer(QC): 3 PT Plan Problem List Problem List: Activity Tolerance, Functional Strength, Safety, Balance, Gait, Transfer, Bed Mobility, ROM Treatment/Plan Treatment Plan: Continue Plan of Care Treatment Plan: Bed Mobility, Education, Functional Activity Berta, Functional Strength, Gait, Safety, Therapeutic Exercise, Transfers Treatment Duration: Feb 21, 2020 Frequency: 6 times per week Estimated Hrs Per Day: .25 hour per day Patient and/or Family Agrees t: Yes Safety Risks/Education Patient Education: Transfer Techniques, Correct Positioning, Safety Issues Teaching Recipient: Patient Teaching Methods: Demonstration, Discussion Response to Teaching: Reinforcement Needed Discharge Recommendations Plan Patient will perform bed mobility and transfer training, balance and endurance training, functional strengthening, gait training, and education, to improve functional mobility and independence at home. Therapy Discharge Recommendati: Home & Family, Post Acute PT Time/GCodes Time In: 1028 Time Out: 1040 Total Billed Treatment Time: 12 Total Billed Treatment 1 visit ALEXANDRIA CANDELARIA PT Feb 14, 2020 10:50
--- NOTE | 2020-02-14 11:21 | Occupational Therapy Eval ---
OT Evaluation-General/PLF Medical Diagnosis Admission Date Jan 25, 2020 at 13:32 Medical Diagnosis: Acute Respiratory Failure Onset Date: Jan 25, 2020 Therapy Diagnosis Therapy Diagnosis: decreased ADL status Precautions Precautions/Isolations: Airborne Isolation, Fall Prevention Weight Bear Status Weight Bearing Restriction: Weight Bearing/Tolerated Location Restriction: LE Bilateral Referral Physician: Myra Yeh Reason: Evaluation/Treatment Medical History Pertinent Medical History: HTN Current History Pt tested positive for COVID-19, arriving at ED with c/o SOA. Pt intubated and transferred to ICU. Social History unknown due to language barrier. ADL-Prior Level of Function SCALE: Activities may be completed with or without assistive devices. 2-Sytytedtvu-egpwwcv completes the activity by him/herself with no assistance from a helper. 5-Set-up or Clean-up Assistance-helper sets up or cleans up; patient completes activity. [place] assists only prior to or following the activity. 4-Supervision or Touching Assistance-helper provides verbal cues and/or touching/steadying and/or contact guard assistance as patient completes activity . Assistance may be provided throughout the activity or intermittently. 3-Partial/Moderate Assistance-helper does LESS THAN HALF the effort. [place] lifts, holds or supports trunk or limbs, but provides less than half the effort. 2-Substantial/Maximal Assistance-helper does MORE THAN HALF the effort. [place] lifts or holds trunk or limbs and provides more than half the effort. 6-Ymaavrpkd-uyvclb does ALL the effort. Patient does none of the effort to complete the activity. Or, the assistance of 2 or more helpers is required for the patient to complete the activity. If activity was not attempted, code reason: 7-Patient Refused. 9-Not Applicable-not attempted and the patient did not perform the activity before the current illness, exacerbation or injury. 10-Not Attempted due to Environmental Limitations-(lack of equipment, weather restraints, etc.). 88-Not Attempted due to Medical Conditions or Safety Concerns. ADL PLOF Comments Pt's PLOF is unknown at this time due to language barrier. Per chart review, pt was working at [employer]. Based on clinical judgement, pt was most likely independent with all ADLs/functional mobility at PLOF. 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 Pt does not speak [place] but able to communicate through gestures. Mental Status/Objective Attachments: Wilson Catheter, IV, Oxygen (vapotherm) Current Upper Extremity ROM decreased AROM, full PROM Upper Extremity Coordination decreased due to decreased AROM Upper Extremity Strength grossly 2/5 MMT BUEs ADL-Treatment Shower/Bathe Self (QC): 1 (based on clinical judgement, pt would be dependent at this time) Lower Body Dressing (QC): 1 (based on clinical judgement, pt would be dependent at this time) On/Off Footwear (QC): 1 (based on clinical judgement, pt would be dependent at this time) Other Treatments Pt laying in bed, agreeable to OT tx. Pt does not speak [place] but able to communicate and participate in OT tx through gestures. Pt agreed to sitting EOB, dependent transfer supine to sit. Pt sat EOB for 2 mins before indicating he was tired and would like to return to supine. Pt dependently transferred back to supine. OT tested pt's UE ROM, pt did not lift arms with cues and gestures, but with testing has full PROM BUEs. His O2 dropped to the upper 80's during tx, with cues to breathe it returned to the low 90's. Post OT Tx, pt laying in bed, call light in reach and all needs met. Education OT Patient Education: Correct positioning, Energy conservation, Modified ADL techniques, Progress toward Goal/Update tx plan, Purpose of tx/functional activities Teaching Recipient: Patient Teaching Methods: Discussion Response to Teaching: Verbalize Understanding OT Fitness Coordinator Goals Fitness Coordinator Goals Time Frame: Mar 01, 2020 Eating (QC): 6 Oral Hygiene (QC): 6 Toileting Hygiene (QC): 6 Shower/Bathe Self (QC): 6 Upper Body Dressing (QC): 6 Lower Body Dressing (QC): 6 On/Off Footwear (QC): 6 1=Demonstrate adherence to instructed precautions during ADL tasks. 2=Patient will verbalize/demonstrate understanding of assistive devices/modifications for ADL. 3=Patient will improve strength/tolerance for activity to enable patient to perform ADL's. OT Education/Plan Problem List/Assessment Assessment: Decreased Activ Tolerance, Decreased UE Strength, Dependent Transfers, Impaired Bed Mobility, Impaired Coordination, Impaired Funct Balance, Impaired I ADL's, Impaired Self-Care Skills, Restricted Funct UE ROM Discharge Recommendations Plan/Recommendations: Continue POC Therapy Discharge Recommendati: Home & Family, Post Acute OT Treatment Plan/Plan of Care Patient would benefit from OT for education, treatment and training to promote independence in ADL's, mobility, safety and/or upper extremity function for ADL's. Plan of Care: ADL Retraining, Functional Mobility, UE Funct Exercise/Act Treatment Duration: Mar 01, 2020 Frequency: 5 times per week Estimated Hrs Per Day: .25 hour per day Rehab Potential: Fair Time/GCodes Start Time: 10:28 Stop Time: 10:40 Total Time Billed (hr/min): 12 Billed Treatment Time 1, JOSELIN RAYMUNDO OT Feb 14, 2020 11:21
[2020-02-14] MEDS ORDERED: RT-ALBUTEROL/IPRATROPIUM 3 ML (DUONEB) VIAL INH PRN (14:45)
[2020-02-14] MEDS: RT-ALBUTEROL/IPRATROPIUM 3 ML (DUONEB) VIAL INH SCH ×2 (14:55→20:38)
--- NOTE | 2020-02-14 15:02 | NUR ---
THIS RN SPOKE TO Maria L MASTERSON RN AND NOTIFIED OF PT'S MOVE FROM ROOM ICU 2 TO ROOM ICU 8 WITH STANDARD PRECAUTIONS. PER Maria L MASTERSON RN " THAT IS FINE."
[2020-02-14] MEDS: NS IV SCH (18:08)
[2020-02-14] MEDS: FENTANYL IV SCH (18:08)
[2020-02-14] MEDS: VANCOMYCIN 1500 MG/NS 500 ML IVPB IV SCH ×2 (20:31)
[2020-02-14] MEDS: ALBUTEROL/IPRATROP (COMBIVENT RESPIMAT) 4 GM INHALER IH SCH (21:39)
[2020-02-15] VITALS (24 sets, daily range): BP systolic 118–169; BP diastolic 67–118
[2020-02-15] MEDS ORDERED: ALBUTEROL/IPRATROP (COMBIVENT RESPIMAT) 4 GM INHALER IH SCH
[2020-02-15] MEDS: meTOprolol 5 MG/5 ML (LOPRESSOR) VIAL IV SCH ×4 (01:10→17:42)
[2020-02-15] MEDS: MEROPENEM 500 MG/SWFI 10 ML IV PUSH IV SCH ×8 (01:10→18:40)
[2020-02-15 01:21] LABS: BASOPHILS % (AUTO) 0 % (0-10); EOSINOPHILS % (AUTO) 0 % (0-10); HEMATOCRIT 34 % (40-54); HEMOGLOBIN 11.1 G/DL (13.3-17.7); LYMPHOCYTES # (AUTO) 1.4 X 10^3 (1.0-4.0); LYMPHOCYTES % (AUTO) 7 % (12-44); MEAN CORPUSCULAR HEMOGLOBIN 30 PG (25-34); MEAN CORPUSCULAR HGB CONC 32 G/DL (32-36); MEAN CORPUSCULAR VOLUME 92 FL (80-99); MONOCYTES # (AUTO) 1.7 X 10^3 (0.0-1.0); MONOCYTES % (AUTO) 8 % (0-12); NEUTROPHILS # (AUTO) 16.9 X 10^3 (1.8-7.8); NEUTROPHILS % (AUTO) 84 % (42-75); PLATELET COUNT 401 10^3/uL (130-400); RED CELL DISTRIBUTION WIDTH 13.9 % (10.0-14.5)
[2020-02-15 01:38] LABS: BUN/CREATININE RATIO 32; CALCIUM 8.6 MG/DL (8.5-10.1); CARBON DIOXIDE 29 MMOL/L (21-32); CHLORIDE 102 MMOL/L (98-107); CREATININE SERUM 0.62 MG/DL (0.60-1.30); GFR ESTIMATED > 60; GLUCOSE 117 MG/DL (70-105); PHOSPHORUS 2.1 MG/DL (2.3-4.7); POTASSIUM 3.4 MMOL/L (3.6-5.0); SODIUM 142 MMOL/L (135-145)
[2020-02-15] MEDS: ALBUTEROL/IPRATROP (COMBIVENT RESPIMAT) 4 GM INHALER IH SCH ×4 (02:39→19:12)
[2020-02-15] MEDS: MAGNESIUM 1 GM/100 ML IVPB 100 ML IV SCH (05:57)
[2020-02-15] MEDS: KCL 20 MEQ TAB (K-DUR) PO SCH (05:58)
[2020-02-15] MEDS: ENOXAPARIN 100 MG/1 ML (LOVENOX) SYR SC SCH (06:05)
--- NOTE | 2020-02-15 06:08 | Pulmonary Progress Note ---
Subjective Time Seen by a Provider: 06:03 Subjective/Events-last exam pt is doing better Sepsis Event Evaluation Height, Weight, BMI Height: '" Weight: lbs. oz. kg; 30.00 BMI Method: Exam Exam Vital Signs Date Time Temp Pulse Resp B/P (MAP) Pulse Ox O2 Delivery O2 Flow Rate FiO2 02/15/20 04:00 Vapotherm 25.00 50 02/15/20 03:35 37.3 Vapotherm 25.00 50.00 02/15/20 03:00 81 25 123/99 (107) 99 Vapotherm 25.00 55.00 02/15/20 02:39 100 28.00 60 02/15/20 02:33 Vapotherm 25.00 55.00 02/15/20 02:00 87 20 154/84 (107) 100 Vapotherm 28.00 60.00 02/15/20 01:00 79 02/15/20 01:00 79 15 144/94 (111) 100 Vapotherm 28.00 60.00 02/15/20 00:05 37.2 Vapotherm 28.00 60.00 02/15/20 00:00 87 14 136/82 (100) Vapotherm 30.00 65.00 02/15/20 00:00 Vapotherm 30.00 65 02/14/20 23:00 99 34 142/90 (107) 97 Vapotherm 30.00 65.00 02/14/20 22:00 76 19 142/87 (105) 100 Vapotherm 30.00 65.00 02/14/20 21:39 100 30.00 65 02/14/20 21:30 Vapotherm 30.00 65.00 02/14/20 21:02 Vapotherm 35.00 65.00 02/14/20 21:00 104 150/95 (113) 100 Vapotherm 40.00 65.00 02/14/20 20:00 Vapotherm 40.00 65 02/14/20 20:00 89 165/86 (112) 98 Vapotherm 40.00 65.00 02/14/20 19:17 36.7 02/14/20 19:00 80 02/14/20 19:00 80 17 95 Vapotherm 40.00 65.00 02/14/20 18:00 91 23 159/92 (114) 99 Vapotherm 40.00 65.00 02/14/20 17:00 91 25 161/92 (115) 100 Vapotherm 40.00 65.00 02/14/20 16:35 98 Vapotherm 40.00 65 02/14/20 16:00 84 35 147/88 (107) 95 Vapotherm 40.00 65.00 02/14/20 16:00 36.9 02/14/20 15:00 78 36 151/107 (122) 100 Vapotherm 40.00 65.00 02/14/20 14:57 100 40.00 65 02/14/20 14:37 100 40.00 65 02/14/20 14:00 73 32 146/92 (110) 99 Vapotherm 40.00 65.00 02/14/20 13:00 88 26 145/112 (123) 99 Vapotherm 40.00 65.00 02/14/20 12:45 98 Vapotherm 35.00 60 02/14/20 12:37 85 02/14/20 12:00 37.1 02/14/20 12:00 98 15 131/81 (98) 96 Vapotherm 40.00 65.00 02/14/20 11:00 86 21 133/82 (99) 97 Vapotherm 40.00 65.00 02/14/20 10:30 Vapotherm 40.00 65.00 02/14/20 10:00 117 42 133/78 (96) 92 Vapotherm 40.00 60.00 02/14/20 09:00 85 26 133/95 (108) 91 Vapotherm 40.00 60.00 02/14/20 08:55 Vapotherm 40.00 60.00 02/14/20 08:00 98 Vapotherm 20.00 55 02/14/20 08:00 37.6 65 24 143/89 (107) 95 Vapotherm 25.00 60.00 02/14/20 07:15 37.7 67 17 107/65 (79) 94 Vapotherm 25.00 60.00 02/14/20 07:12 94 Vapotherm 25.00 60 02/14/20 06:39 80 02/14/20 06:25 37.8 70 24 108/72 (84) 96 Vapotherm 25.00 60.00 I & O 02/15/20 07:00 Intake Total 1884 ml Output Total 2300 ml Balance -416 ml Height & Weight Height: '" Weight: lbs. oz. kg; 30.00 BMI Method: General Appearance: Mild Distress (tachypnea), Other (intubated and sedated) HEENT: Other (ET/OG in place) Respiratory: Lungs Clear, Normal Breath Sounds, Respiratory Distress (tachypnea), Other (intubated and mechanically ventilated) Cardiovascular: Regular Rate, Rhythm, No Edema, No Murmur Capillary Refill: Less Than 3 Seconds Gastrointestinal: normal bowel sounds, soft Extremity: Normal Inspection, No Pedal Edema Neurologic/Psychiatric: Other (sedated) Skin: Normal Color, Warm/Dry Results Lab Laboratory Tests 02/14/20 02:55 02/15/20 01:10 Assessment/Plan Assessment/Plan Acute respiratory failure secondary to COVID with improving ARDS- -PT taken out of isolation per our ID RN yesterday. This was not discussed with me. -Extubated 02/02 -Continue Vapotherm for now - Lasix - Will D/C after this AMs dose - decadron 20mg daily -Decrease to 10mg daily -s/p Remdesivir tx 02/13 worsening leukocytosis and fever -Add Vancomycin -repeat delgado cultures -repeat MRSA nasal swab PNA with Enterobactor -Continue Merrem, Eraxais --02/04 = Pt had worsening leukocytosis and fever of 101 -Diflucan changed back to eraxis -Changed Zosyn to Merrem on 02/04 -Repeat sputum does show enterobacter is resistant to Zosyn and sensitive to Merrem. Frequent PVCs - Amiodarone gtt, Lopressor -cardiology consulted hypokalemia, hypophos -replace HTN -Lopressor -Hydralazine PRN STEFANI FORDE DO Feb 15, 2020 06:08
[2020-02-15] MEDS: VANCOMYCIN 1500 MG/NS 500 ML IVPB IV SCH ×4 (06:09→18:40)
[2020-02-15] MEDS: POTASSIUM CL 10MEQ/50ML IVPB 50 ML IV SCH ×3 (06:21→08:07)
[2020-02-15] MEDS: DOCUSATE SODIUM 10 MG/ML 10 ML UDC (COLACE) PO SCH ×2 (08:07→21:00)
[2020-02-15] MEDS: ANIDULAFUNGIN INJECTION 100 MG in NS (IVPB) 100 ML IV SCH (08:07)
[2020-02-15] MEDS: PANTOPRAZOLE 40 MG (PROTONIX) VIAL IV SCH (08:07)
--- NOTE | 2020-02-15 08:42 | Physical Therapy Daily Note ---
PT Daily Note-Current Subjective Patient in bed pre tx, agrees to PT, has no complaints of pain. Will be co- treating with OT due to poor patient mobility, strength, endurance, decreased O2 sat with activity, the need to coordinate UE and LE during activity. Appearance Patient in bed post tx with nurse call, phone, tray, all needs met. Mental Status Patient Orientation: Person, Unable to Assess Attachments: Oxygen, Wilson Catheter, IV Transfers SCALE: Activities may be completed with or without assistive devices. 4-Ecgmnasoqk-jidkbmv completes the activity by him/herself with no assistance from a helper. 5-Set-up or Clean-up Assistance-helper sets up or cleans up; patient completes activity. [place] assists only prior to or following the activity. 4-Supervision or Touching Assistance-helper provides verbal cues and/or touching/steadying and/or contact guard assistance as patient completes activity. Assistance may be provided throughout the activity or intermittently. 3-Partial/Moderate Assistance-helper does LESS THAN HALF the effort. [place] lifts, holds or supports trunk or limbs, but provides less than half the effort. 2-Substantial/Maximal Assistance-helper does MORE THAN HALF the effort. [place] lifts or holds trunk or limbs and provides more than half the effort. 6-Edntkqims-psdpkm does ALL the effort. Patient does none of the effort to complete the activity. Or, the assistance of 2 or more helpers is required for the patient to complete the activity. If activity was not attempted, code reason: 7-Patient Refused. 9-Not Applicable-not attempted and the patient did not perform the activity before the current illness, exacerbation or injury. 10-Not Attempted due to Environmental Limitations-(lack of equipment, weather restraints, etc.). 88-Not Attempted due to Medical Conditions or Safety Concerns. Roll Left & Right (QC): 2 Sit to Lying (QC): 2 Lying to Sitting/Side of Bed(Q: 2 Sit to Stand (QC): 2 Patient able to maintain balance sitting on the side of the bed, patient stood twice with light max assist, O2 sat started to get down into the mid 80's so layed back down, came back up to 90's fairly quickly. Weight Bearing Right Lower Extremity: Right Weight Bearing/Tolerated Left Lower Extremity: Left Weight Bearing/Tolerated Exercises Supine Ex: Ankle pumps, Heel Slides Supine Reps: 10 Treatments bed mobility, standing, LE exercise Assessment Current Status: Fair Progress slightly improved strength, O2 sat decreases with activity PT Promotions Firm Accounts Manager Goals Intermediate Goals PT Promotions Firm Accounts Manager Goals Time Frame: Feb 21, 2020 Roll Left & Right (QC): 3 Sit to Lying (QC): 3 Lying-Sitting on Side/Bed(QC): 3 Sit to Stand (QC): 3 Chair/Gpq-dy-Slfqf Xfer(QC): 3 PT Plan Problem List Problem List: Activity Tolerance, Functional Strength, Safety, Balance, Gait, Transfer, Bed Mobility, ROM Treatment/Plan Treatment Plan: Continue Plan of Care Treatment Plan: Bed Mobility, Education, Functional Activity Berta, Functional Strength, Gait, Safety, Therapeutic Exercise, Transfers Treatment Duration: Feb 21, 2020 Frequency: 6 times per week Estimated Hrs Per Day: .25 hour per day Patient and/or Family Agrees t: Yes Safety Risks/Education Patient Education: Correct Positioning, Safety Issues Teaching Recipient: Patient Teaching Methods: Demonstration, Discussion Response to Teaching: Reinforcement Needed Time/GCodes Time In: 0813 Time Out: 08 Total Billed Treatment Time: 15 Total Billed Treatment 1 visit FA 15' Co-treated for 15'. PT performed bed mobility, supine <-> sit, standing, LE exercise, OT performed UE exercise, assist with mobility and UE positioning and safety. ALEXANDRIA NAQVI PT Feb 15, 2020 08:42
--- NOTE | 2020-02-15 08:48 | Physical Therapy Daily Note ---
PT Daily Note-Current Subjective Patient in bed pre tx, agrees to PT, no complaints of pain. Will be co-treating with OT due to poor patient mobility, strength, endurance, the need to coordinate UE and LE during activity, O2 sat drop during activity. Appearance Patient in bed post tx with nurse call, phone, tray, all needs met. Mental Status Patient Orientation: Person, Unable to Assess Attachments: Oxygen, Wilson Catheter, IV Transfers SCALE: Activities may be completed with or without assistive devices. 0-Osgwwwcqkq-pqacoxu completes the activity by him/herself with no assistance from a helper. 5-Set-up or Clean-up Assistance-helper sets up or cleans up; patient completes activity. [place] assists only prior to or following the activity. 4-Supervision or Touching Assistance-helper provides verbal cues and/or touching/steadying and/or contact guard assistance as patient completes activity. Assistance may be provided throughout the activity or intermittently. 3-Partial/Moderate Assistance-helper does LESS THAN HALF the effort. [place] lifts, holds or supports trunk or limbs, but provides less than half the effort. 2-Substantial/Maximal Assistance-helper does MORE THAN HALF the effort. [place] lifts or holds trunk or limbs and provides more than half the effort. 8-Zhgmwteme-gzcqdd does ALL the effort. Patient does none of the effort to complete the activity. Or, the assistance of 2 or more helpers is required for the patient to complete the activity. If activity was not attempted, code reason: 7-Patient Refused. 9-Not Applicable-not attempted and the patient did not perform the activity before the current illness, exacerbation or injury. 10-Not Attempted due to Environmental Limitations-(lack of equipment, weather restraints, etc.). 88-Not Attempted due to Medical Conditions or Safety Concerns. Roll Left & Right (QC): 2 Sit to Lying (QC): 2 Lying to Sitting/Side of Bed(Q: 2 Sit to Stand (QC): 2 Max assist for supine <-> sit, patient is able to maintain sitting balance on the side of the bed, patient stood twice with a light max assist, O2 sat went down to mid 80's and layed back down, came back up into the 90's fairly quickly. Weight Bearing Right Lower Extremity: Right Weight Bearing/Tolerated Left Lower Extremity: Left Weight Bearing/Tolerated Exercises Supine Ex: Ankle pumps, Heel Slides Supine Reps: 10 (AAROM) Treatments bed mobility, standing, LE exercise. PT performed bed mobility, standing, LE exercise, OT performed UE exercise, assist with mobility and UE positioning and safety. Assessment Current Status: Fair Progress slight improvement in strength but O2 sat drops with activity PT Prison Goals Prison Goals PT Vocational Adviser Goals Time Frame: Feb 21, 2020 Roll Left & Right (QC): 3 Sit to Lying (QC): 3 Lying-Sitting on Side/Bed(QC): 3 Sit to Stand (QC): 3 Chair/Mmx-db-Kcgyx Xfer(QC): 3 PT Plan Problem List Problem List: Activity Tolerance, Functional Strength, Safety, Balance, Gait, Transfer, Bed Mobility, ROM Treatment/Plan Treatment Plan: Continue Plan of Care Treatment Plan: Bed Mobility, Education, Functional Activity Berta, Functional Strength, Gait, Safety, Therapeutic Exercise, Transfers Treatment Duration: Feb 21, 2020 Frequency: 6 times per week Estimated Hrs Per Day: .25 hour per day Patient and/or Family Agrees t: Yes Safety Risks/Education Patient Education: Correct Positioning, Safety Issues Teaching Recipient: Patient Teaching Methods: Demonstration, Discussion Response to Teaching: Reinforcement Needed Time/GCodes Time In: 812 Time Out: 827 Total Billed Treatment Time: 15 Total Billed Treatment 1 visit FA ALEXANDRIA JAY PT Feb 15, 2020 08:48
--- NOTE | 2020-02-15 08:48 | Occupational Ther Daily Note ---
OT Current Status-Daily Note Subjective Pt laying in bed agreeable to OT/PT cotreat. OT communicated with pt through gestures and simple phrases due to [place] not being pt's primary language. Pt denied having pain. Mental Status/Objective Attachments: Wilson Catheter, IV, Oxygen ADL-Treatment Therapy Code Descriptions/Definitions Functional [place] Measure: 0=Not Assessed/NA 4=Minimal Assistance 1=Total Assistance 5=Supervision or Setup 2=Maximal Assistance 6=Modified [place] 3=Moderate Assistance 7=Complete IndependenceSCALE: Activities may be completed with or without assistive devices. 6-Axhcaimgdw-efsnbcl completes the activity by him/herself with no assistance from a helper. 5-Set-up or Clean-up Assistance-helper sets up or cleans up; patient completes activity. [place] assists only prior to or following the activity. 4-Supervision or Touching Assistance-helper provides verbal cues and/or touching/steadying and/or contact guard assistance as patient completes activity. Assistance may be provided throughout the activity or intermittently. 3-Partial/Moderate Assistance-helper does LESS THAN HALF the effort. [place] lifts, holds or supports trunk or limbs, but provides less than half the effort. 2-Substantial/Maximal Assistance-helper does MORE THAN HALF the effort. [place] lifts or holds trunk or limbs and provides more than half the effort. 3-Pnkejhccs-ykunnu does ALL the effort. Patient does none of the effort to complete the activity. Or, the assistance of 2 or more helpers is required for the patient to complete the activity. If activity was not attempted, code reason: 7-Patient Refused. 9-Not Applicable-not attempted and the patient did not perform the activity before the current illness, exacerbation or injury. 10-Not Attempted due to Environmental Limitations-(lack of equipment, weather restraints, etc.). 88-Not Attempted due to Medical Conditions or Safety Concerns. Other Treatment OT/PT cotreat due to decreased functional mobility, decreased endurance, decreased strength, and the skill of 2 clinicians required that a clinical rehabilitation coordinator c ould not perform. OT focused on UE placement, assistance with transfers, and cues for sequencing/safety while PT focused on overall gross movements, LE placement, and transfers. Pt laying in bed, agreed to sit EOB. Pt transferred supine to sit max A, then required support of trunk in order to maintain sitting position. Pt completed x2 stand trials with Max A each trial. Pt's O2 sat went down to mid 80's and layed back down, came back up into the 90's fairly quickly. Pt then performed UE/LE exercises at bed level, pt able to complete x10 reps AAROM shoulder flexion BUE. Post OT/PT cotreat, pt laying in bed, call light in reach and all needs met. Education OT Patient Education: Correct positioning, Energy conservation, Modified ADL techniques, Progress toward Goal/Update tx plan, Purpose of tx/functional activities, Transfer techniques Teaching Recipient: Patient Teaching Methods: Demonstration Response to Teaching: Return Demonstration OT Grader [employer] Goals Group Home Goals Time Frame: Mar 01, 2020 Eating (QC): 6 Oral Hygiene (QC): 6 Toileting Hygiene (QC): 6 Shower/Bathe Self (QC): 6 Upper Body Dressing (QC): 6 Lower Body Dressing (QC): 6 On/Off Footwear (QC): 6 1=Demonstrate adherence to instructed precautions during ADL tasks. 2=Patient will verbalize/demonstrate understanding of assistive devices/modifications for ADL. 3=Patient will improve strength/tolerance for activity to enable patient to perform ADL's. OT Education/Plan Problem List/Assessment Assessment: Decreased Activ Tolerance, Decreased UE Strength, Impaired Bed Mobility, Impaired Funct Balance, Impaired I ADL's, Impaired Self-Care Skills Discharge Recommendations Plan/Recommendations: Continue POC Treatment Plan/Plan of Care Patient would benefit from OT for education, treatment and training to promote independence in ADL's, mobility, safety and/or upper extremity function for ADL's. Plan of Care: ADL Retraining, Functional Mobility, UE Funct Exercise/Act Treatment Duration: Mar 01, 2020 Frequency: 5 times per week Estimated Hrs Per Day: .25 hour per day Rehab Potential: Fair Time/GCodes Start Time: 08:13 Stop Time: 08:28 Total Time Billed (hr/min): 15 Billed Treatment Time OT/PT cotreat x15' 1, JOSELIN MURPHY OT Feb 15, 2020 08:48
[2020-02-15] MEDS ORDERED: POTASSIUM PHOSPHATE INJ 30 MM in NS (IVPB) 250 ML IV ONE (09:00)
--- NOTE | 2020-02-15 15:28 | NUR ---
Requested RN to please place patient back in isolation. He was not 3 days without symptoms of a fever. Thank you. Spoke to Dr Larson.
--- NOTE | 2020-02-15 16:00 | NUR ---
THIS RN TO ASSUME CARE OF PT, RECEIVED REPORT FROM MELANIE THOMPSON.
--- NOTE | 2020-02-15 17:18 | Cardiology Progress Note ---
Cardiology SOAP Progress Note Subjective: No cardiac complaints. Objective: I&O/Vital Signs 02/17/20 02/17/20 02/17/20 02/17/20 03:00 03:04 04:00 04:00 Pulse 80 71 Resp 33 36 B/P (MAP) 124/82 (96) 113/87 (96) Pulse Ox 95 95 94 O2 Delivery Nasal Cannula Nasal Cannula Nasal Cannula Nasal Cannula O2 Flow Rate 1.50 1.50 1.00 1.50 02/17/20 02/17/20 02/17/20 02/17/20 05:00 06:00 07:00 07:18 Pulse 76 84 86 81 Resp 25 28 21 B/P (MAP) 136/81 (99) 137/79 (98) 134/85 (101) Pulse Ox 94 94 93 O2 Delivery Nasal Cannula Nasal Cannula Nasal Cannula O2 Flow Rate 1.50 1.50 1.50 02/17/20 02/17/20 02/17/20 02/17/20 07:39 07:40 08:00 09:00 Temp 36.1 Pulse 113 90 Resp 29 31 B/P (MAP) 130/92 (105) 118/80 (93) Pulse Ox 88 92 O2 Delivery Nasal Cannula Nasal Cannula Nasal Cannula O2 Flow Rate 1.00 1.50 1.00 02/17/20 02/17/20 02/17/20 02/17/20 09:56 10:00 11:00 12:00 Pulse 94 101 92 Resp 38 32 21 B/P (MAP) 139/77 (97) 134/90 (105) 146/87 (106) Pulse Ox 93 92 95 96 O2 Delivery Nasal Cannula Nasal Cannula Nasal Cannula Nasal Cannula O2 Flow Rate 1.50 1.00 1.00 1.00 02/17/20 02/17/20 02/17/20 13:00 13:00 14:00 Pulse 96 96 112 Resp 18 25 B/P (MAP) 164/108 (126) 154/104 (121) Pulse Ox 95 88 O2 Delivery Nasal Cannula Nasal Cannula O2 Flow Rate 1.00 1.00 02/17/20 00:00 Intake Total 150 ml Output Total 1375 ml Balance -1225 ml Constitutional: AAO x 3 Respiratory: chest is bilaterally symmetric, lungs clear to auscultation Cardiovascular: regular rate-rhythm, extra beats, S1 and S2 Gastrointestional: soft, audible bowel sounds Extremities: normal range of motion, non-tender, normal inspection Neurologic/Psychiatric: no motor/sensory deficits, alert, normal mood/affect, oriented x 3 Skin: normal color, warm/dry Results/Procedures: Labs Laboratory Tests 02/17/20 02:00: White Blood Count 16.1H, Red Blood Count 3.82L, Hemoglobin 11.4L, Hematocrit 35L , Mean Corpuscular Volume 92, Mean Corpuscular Hemoglobin 30, Mean Corpuscular Hemoglobin Concent 32, Red Cell Distribution Width 14.0, Platelet Count 401H, Mean Platelet Volume 9.6, Neutrophils (%) (Auto) 80H, Lymphocytes (%) (Auto) 10L , Monocytes (%) (Auto) 9, Eosinophils (%) (Auto) 1, Basophils (%) (Auto) 0, Neutrophils # (Auto) 12.9H, Lymphocytes # (Auto) 1.6, Monocytes # (Auto) 1.5H, Eosinophils # (Auto) 0.1, Basophils # (Auto) 0.0, Sodium Level 142, Potassium Level 3.7, Chloride Level 104, Carbon Dioxide Level 27, Anion Gap 11, Blood Urea Nitrogen 20H, Creatinine 0.67, Estimat Glomerular Filtration Rate > 60, BUN/Creatinine Ratio 30, Glucose Level 111H, Calcium Level 8.7, Phosphorus Level 1.9L, Magnesium Level 2.1 Microbiology 02/14/20 Blood Culture - Preliminary, Resulted No growth 02/14/20 MRSA Screen - Final, Complete MRSA not isolated 01/25/20 Urine Culture - Final, Complete NO GROWTH A/P: Assessment/Dx: Acute respiratory failure due to active COVID-19 infection, Frequent PVCs Plan: Continue amiodarone. Metoprolol 5 mg IV every 6. Continue telemetry. Thank you for your consultation. Please call me if you have any questions. Peter Bello MD, FACP, FACC, FSCAI, FHRS, CCDS Interventional Cardiology Cardiac Electrophysiology Vascular Medicine and Endovascular Interventions Demario BELLO MD Feb 15, 2020 17:18
[2020-02-15] MEDS ORDERED: TROUGH ORDER-PHARMACY XX ONE (18:00)
[2020-02-15] MEDS: AMIODARONE INJECTION 450 MG in D5W IV SOLUTION (EXCEL) 250 ML IV SCH (18:41)
[2020-02-16] VITALS (24 sets, daily range): BP systolic 90–159; BP diastolic 63–125
[2020-02-16] MEDS: meTOprolol 5 MG/5 ML (LOPRESSOR) VIAL IV SCH ×3 (00:24→11:08)
[2020-02-16] MEDS: MEROPENEM 500 MG/SWFI 10 ML IV PUSH IV SCH ×8 (00:25→18:58)
[2020-02-16] MEDS: ALBUTEROL/IPRATROP (COMBIVENT RESPIMAT) 4 GM INHALER IH SCH ×4 (02:05→21:48)
[2020-02-16 02:50] LABS: BASOPHILS % (AUTO) 0 % (0-10); EOSINOPHILS # (AUTO) 0.1 10^3/uL (0.0-0.3); EOSINOPHILS % (AUTO) 1 % (0-10); HEMATOCRIT 33 % (40-54); HEMOGLOBIN 10.8 G/DL (13.3-17.7); LYMPHOCYTES # (AUTO) 1.4 X 10^3 (1.0-4.0); LYMPHOCYTES % (AUTO) 9 % (12-44); MEAN CORPUSCULAR HEMOGLOBIN 30 PG (25-34); MEAN CORPUSCULAR HGB CONC 33 G/DL (32-36); MEAN CORPUSCULAR VOLUME 93 FL (80-99); MEAN PLATELET VOLUME 9.8 FL (7.4-10.4); MONOCYTES # (AUTO) 1.5 X 10^3 (0.0-1.0); MONOCYTES % (AUTO) 10 % (0-12); NEUTROPHILS # (AUTO) 12.7 X 10^3 (1.8-7.8); NEUTROPHILS % (AUTO) 81 % (42-75); PLATELET COUNT 396 10^3/uL (130-400); RED CELL DISTRIBUTION WIDTH 14.1 % (10.0-14.5); WHITE BLOOD COUNT 15.7 10^3/uL (4.3-11.0)
[2020-02-16 02:54] LABS: CHLORIDE 102 MMOL/L (98-107); POTASSIUM 3.4 MMOL/L (3.6-5.0); SODIUM 138 MMOL/L (135-145)
[2020-02-16 02:56] LABS: CALCIUM 8.3 MG/DL (8.5-10.1); GLUCOSE 163 MG/DL (70-105)
[2020-02-16 02:58] LABS: CARBON DIOXIDE 27 MMOL/L (21-32)
[2020-02-16 03:00] LABS: CREATININE SERUM 0.64 MG/DL (0.60-1.30); GFR ESTIMATED > 60
[2020-02-16 03:01] LABS: BUN/CREATININE RATIO 25
[2020-02-16 03:03] LABS: MAGNESIUM 2.1 MG/DL (1.6-2.4)
[2020-02-16] MEDS: MAGNESIUM 1 GM/100 ML IVPB 100 ML IV SCH (05:04)
[2020-02-16] MEDS: POTASSIUM CL 10MEQ/50ML IVPB 50 ML IV SCH ×3 (05:04→07:43)
[2020-02-16] MEDS: KCL 20 MEQ TAB (K-DUR) PO SCH (05:05)
[2020-02-16] MEDS: VANCOMYCIN 1500 MG/NS 500 ML IVPB IV SCH ×2 (06:42)
[2020-02-16] MEDS: PANTOPRAZOLE 40 MG (PROTONIX) VIAL IV SCH (07:43)
[2020-02-16] MEDS: ENOXAPARIN 40 MG/0.4 ML (LOVENOX) SYR SC SCH (07:43)
[2020-02-16] MEDS: DOCUSATE SODIUM 10 MG/ML 10 ML UDC (COLACE) PO SCH (07:43)
--- NOTE | 2020-02-16 08:38 | Occupational Ther Daily Note ---
OT Current Status-Daily Note Subjective Pt laying in bed, OT introduced self and communicated with pt through simple gestures and demo. ADL-Treatment Therapy Code Descriptions/Definitions Functional [place] Measure: 0=Not Assessed/NA 4=Minimal Assistance 1=Total Assistance 5=Supervision or Setup 2=Maximal Assistance 6=Modified [place] 3=Moderate Assistance 7=Complete IndependenceSCALE: Activities may be completed with or without assistive devices. 8-Uowntuayyk-osiktjn completes the activity by him/herself with no assistance from a helper. 5-Set-up or Clean-up Assistance-helper sets up or cleans up; patient completes activity. [place] assists only prior to or following the activity. 4-Supervision or Touching Assistance-helper provides verbal cues and/or touching/steadying and/or contact guard assistance as patient completes activity. Assistance may be provided throughout the activity or intermittently. 3-Partial/Moderate Assistance-helper does LESS THAN HALF the effort. [place] lifts, holds or supports trunk or limbs, but provides less than half the effort. 2-Substantial/Maximal Assistance-helper does MORE THAN HALF the effort. [place] lifts or holds trunk or limbs and provides more than half the effort. 1-Taigcvbrj-nuktod does ALL the effort. Patient does none of the effort to complete the activity. Or, the assistance of 2 or more helpers is required for the patient to complete the activity. If activity was not attempted, code reason: 7-Patient Refused. 9-Not Applicable-not attempted and the patient did not perform the activity before the current illness, exacerbation or injury. 10-Not Attempted due to Environmental Limitations-(lack of equipment, weather restraints, etc.). 88-Not Attempted due to Medical Conditions or Safety Concerns. Other Treatment Pt laying in bed, nurse stated pt OK to be seen by therapy. OT tx with focus on UE exercises in order to increase BUE functional endurance, strength, and coordination in order to increase independence with functional tasks and ADLs. OT assisted pt with x10 reps AAROM BUE for the following exercises: shoulder flexion, elbow flexion/extension, finger flexion/extension. Pt required short rest breaks between activity. O2 remained in the 90s throughout session. Pt nodded in agreement when OT asked if he was "okay". Post OT tx, pt laying in bed, call light in reach and all needs met. Education OT Patient Education: Correct positioning, Energy conservation, Exercise program, Progress toward Goal/Update tx plan, Purpose of tx/functional activities Teaching Recipient: Patient Teaching Methods: Demonstration Response to Teaching: Return Demonstration OT Data Processing Operator Goals Fpc Goals Time Frame: Mar 01, 2020 Eating (QC): 6 Oral Hygiene (QC): 6 Toileting Hygiene (QC): 6 Shower/Bathe Self (QC): 6 Upper Body Dressing (QC): 6 Lower Body Dressing (QC): 6 On/Off Footwear (QC): 6 1=Demonstrate adherence to instructed precautions during ADL tasks. 2=Patient will verbalize/demonstrate understanding of assistive devices/modifications for ADL. 3=Patient will improve strength/tolerance for activity to enable patient to perform ADL's. OT Education/Plan Problem List/Assessment Assessment: Decreased Activ Tolerance, Decreased UE Strength, Impaired Bed Mobility, Impaired I ADL's, Impaired Self-Care Skills, Restricted Funct UE ROM Discharge Recommendations Plan/Recommendations: Continue POC Treatment Plan/Plan of Care Patient would benefit from OT for education, treatment and training to promote independence in ADL's, mobility, safety and/or upper extremity function for ADL's. Plan of Care: ADL Retraining, Functional Mobility, UE Funct Exercise/Act Treatment Duration: Mar 01, 2020 Frequency: 5 times per week Estimated Hrs Per Day: .25 hour per day Rehab Potential: Fair Time/GCodes Start Time: 08:10 Stop Time: 08:21 Total Time Billed (hr/min): 11 Billed Treatment Time 1, EX JOSELIN SEO OT Feb 16, 2020 08:38
--- NOTE | 2020-02-16 10:21 | Progress Note - Hospitalist ---
Subjective HPI/CC On Admission Date Seen by Provider: Feb 16, 2020 Time Seen by Provider: 10:08 Subjective/Events-last exam Pt at first states he is ok and then states he is "getting worse and worse." When asked how so he could not answer and just states "I'm old." Language line was used but patient was speaking very low and interpretor had a hard time understanding him so there was still some limitations with our conversation. He denies any needs, pain, or specific issues. Objective Exam Vital Signs Vital Signs Date Time Temp Pulse Resp B/P (MAP) Pulse Ox O2 Delivery O2 Flow Rate FiO2 02/16/20 09:00 69 24 108/78 (88) 92 Nasal Cannula 4.00 02/16/20 07:49 37.1 02/16/20 04:00 0 Capillary Refill : Less Than 3 Seconds General Appearance: No Apparent Distress, WD/WN Respiratory: Lungs Clear, No Respiratory Distress Cardiovascular: Regular Rate, Rhythm, No Murmur Extremity: No Calf Tenderness, No Pedal Edema Neurologic/Psychiatric: Alert, Oriented x3, Depressed Affect Results/Procedures Lab Laboratory Tests 02/16/20 02:32 Patient resulted labs reviewed. Imaging: Reviewed Imaging Report Assessment/Plan Assessment and Plan Assess & Plan/Chief Complaint Acute hypoxemic respiratory failure COVID19 ARDS Secondary pneumonia s/p cardiac arrest in ER Extubated 02/12, now titrated down to 1lpm [place] Tele[facility] consulted, appreciate assistance Currently on Merrem, will continue over weekend to complete 14 day course for VAP per sensitivities, will DC Vanc Completed Remdesivir Still on decadron- will switch to oral and start taper Continue to prone as able Continue Lovenox ppx PT/OT Diagnosis/Problems Diagnosis/Problems (1) Acute respiratory failure Qualifiers: Respiratory failure complication: hypoxia Qualified Codes: J96.01 - Acute respiratory failure with hypoxia (2) Cardiac arrest Status: Acute (3) COVID-19 Status: Acute (4) Elevated LFTs Status: Resolved Resolution Date/Time: 01/28/20 @ 11:25 (5) Elevated d-dimer Status: Acute (6) Shock Status: Resolved Resolution Date/Time: 01/27/20 @ 10:41 (7) ARDS (adult respiratory distress syndrome) Status: Acute (8) Pneumonia Clinical Quality Measures DVT/VTE Risk/Contraindication: Risk Factor Score Per Nursin RFS Level Per Nursing on Admit: 4+=Very High NOEMI LUTHER MD Feb 16, 2020 10:21
[2020-02-16] MEDS ORDERED: AMIODARONE 200 MG (CORDARONE) TAB ONE (11:39)
[2020-02-16] MEDS: AMIODARONE 200 MG (CORDARONE) TAB PO SCH (12:40)
[2020-02-16] MEDS: RT-ALBUTEROL/IPRATROPIUM 3 ML (DUONEB) VIAL INH SCH (12:41)
[2020-02-16] MEDS: meTOprolol TARTRATE 25 MG (LOPRESSOR) TABLET PO SCH ×2 (12:41→20:43)
--- NOTE | 2020-02-16 13:37 | NUR ---
"RD ASSESSMENT PMHx: unknown PMH; PT INTERACTION: Note pt is in COVID isolation, per chart review. Note all diet information is per chart review. Note avg PO intake of 33% x1d. Note last BM was 02/13, and pt currently on bowel regimen of colace BID. ABNORMAL NUTRITION-RELATED LAB VALUES LOW: K 3.4; Ca 8.3; phos 2.0 HIGH: glu 163 Est. kcal needs: 1800 kcal | 20 kcal/kg Est. Pro needs: 72 g Pro | 0.8 g Pro/kg PES STATEMENT: Inadequate oral intake (NI-2.1) related to loss of appetite as evidenced by chart review | avg PO intake 33% x1d INTERVENTION: Continue with current diet order of Regular diet. Add Ensure Enlive (vary) to meals TID, per chart review. Provides 350 kcal and 13 g Pro per serving. Will continue to follow and reassess as pt needs, intake, and status change. MONITOR/EVALUATE: PO Intake; Plan of Care; Hydration Status; Weight Status; Lab Values Emerson Dunawya, MS, RD, LD"
--- NOTE | 2020-02-16 14:23 | Physical Therapy Daily Note ---
PT Daily Note-Current Subjective Patient in bed pre tx, will be assisting nursing during treatment, they need to bathe patient and change bed. Proper PPE donned. Appearance Patient in bed post tx with nurse call, phone, tray, nursing still in room to continue to bathe patient Mental Status Patient Orientation: Person, Unable to Assess Attachments: Oxygen, Wilson Catheter, IV Transfers SCALE: Activities may be completed with or without assistive devices. 5-Ygwbpzhawa-aekmxxe completes the activity by him/herself with no assistance from a helper. 5-Set-up or Clean-up Assistance-helper sets up or cleans up; patient completes activity. [place] assists only prior to or following the activity. 4-Supervision or Touching Assistance-helper provides verbal cues and/or touching/steadying and/or contact guard assistance as patient completes activity. Assistance may be provided throughout the activity or intermittently. 3-Partial/Moderate Assistance-helper does LESS THAN HALF the effort. [place] lifts, holds or supports trunk or limbs, but provides less than half the effort. 2-Substantial/Maximal Assistance-helper does MORE THAN HALF the effort. [place] lifts or holds trunk or limbs and provides more than half the effort. 3-Lmbfnpoct-itluxf does ALL the effort. Patient does none of the effort to complete the activity. Or, the assistance of 2 or more helpers is required for the patient to complete the activity. If activity was not attempted, code reason: 7-Patient Refused. 9-Not Applicable-not attempted and the patient did not perform the activity before the current illness, exacerbation or injury. 10-Not Attempted due to Environmental Limitations-(lack of equipment, weather restraints, etc.). 88-Not Attempted due to Medical Conditions or Safety Concerns. Roll Left & Right (QC): 3 Sit to Lying (QC): 2 Lying to Sitting/Side of Bed(Q: 2 Sit to Stand (QC): 3 Patient max assist for supine <-> sit, patient sat on the side of the bed for several minutes while nurse bathes, he needs min assist for sitting balance, stood twice with mod assist for about 30-45 sec each time and nurse bathed bottom and changed sheets, performed exercises sitting, patient indicates that he needs to lay down, layed down. O2 sat dropped to upper 80's during tx. Weight Bearing Right Lower Extremity: Right Weight Bearing/Tolerated Left Lower Extremity: Left Weight Bearing/Tolerated Exercises Seated Therapy Exercises: Ankle pumps, Long arc quads Seated Reps: 10 Treatments bed mobility, supine <-> sit, standing, LE exercise Assessment Current Status: Poor Progress patient fatigues quickly, needed more assist to stand PT Router Setter Goals Router Setter Goals PT Router Setter Goals Time Frame: Feb 21, 2020 Roll Left & Right (QC): 3 Sit to Lying (QC): 3 Lying-Sitting on Side/Bed(QC): 3 Sit to Stand (QC): 3 Chair/Xhv-iq-Etkqe Xfer(QC): 3 PT Plan Problem List Problem List: Activity Tolerance, Functional Strength, Safety, Balance, Gait, Transfer, Bed Mobility, ROM Treatment/Plan Treatment Plan: Continue Plan of Care Treatment Plan: Bed Mobility, Education, Functional Activity Berta, Functional Strength, Gait, Safety, Therapeutic Exercise, Transfers Treatment Duration: Feb 21, 2020 Frequency: 6 times per week Estimated Hrs Per Day: .25 hour per day Patient and/or Family Agrees t: Yes Safety Risks/Education Patient Education: Correct Positioning, Safety Issues Teaching Recipient: Patient Teaching Methods: Demonstration, Discussion Response to Teaching: Reinforcement Needed Time/GCodes Time In: 1355 Time Out: 1409 Total Billed Treatment Time: 14 Total Billed Treatment 1 visit FA ALEXANDRIA HOPSON PT Feb 16, 2020 14:23
--- NOTE | 2020-02-16 14:45 | Cardiology Progress Note ---
Cardiology SOAP Progress Note Subjective: No acute cardiac complaints. Objective: I&O/Vital Signs 02/17/20 02/17/20 02/17/20 02/17/20 03:00 03:04 04:00 04:00 Pulse 80 71 Resp 33 36 B/P (MAP) 124/82 (96) 113/87 (96) Pulse Ox 95 95 94 O2 Delivery Nasal Cannula Nasal Cannula Nasal Cannula Nasal Cannula O2 Flow Rate 1.50 1.50 1.00 1.50 02/17/20 02/17/20 02/17/20 02/17/20 05:00 06:00 07:00 07:18 Pulse 76 84 86 81 Resp 25 28 21 B/P (MAP) 136/81 (99) 137/79 (98) 134/85 (101) Pulse Ox 94 94 93 O2 Delivery Nasal Cannula Nasal Cannula Nasal Cannula O2 Flow Rate 1.50 1.50 1.50 02/17/20 02/17/20 02/17/20 02/17/20 07:39 07:40 08:00 09:00 Temp 36.1 Pulse 113 90 Resp 29 31 B/P (MAP) 130/92 (105) 118/80 (93) Pulse Ox 88 92 O2 Delivery Nasal Cannula Nasal Cannula Nasal Cannula O2 Flow Rate 1.00 1.50 1.00 02/17/20 02/17/20 02/17/20 02/17/20 09:56 10:00 11:00 12:00 Pulse 94 101 92 Resp 38 32 21 B/P (MAP) 139/77 (97) 134/90 (105) 146/87 (106) Pulse Ox 93 92 95 96 O2 Delivery Nasal Cannula Nasal Cannula Nasal Cannula Nasal Cannula O2 Flow Rate 1.50 1.00 1.00 1.00 02/17/20 02/17/20 02/17/20 13:00 13:00 14:00 Pulse 96 96 112 Resp 18 25 B/P (MAP) 164/108 (126) 154/104 (121) Pulse Ox 95 88 O2 Delivery Nasal Cannula Nasal Cannula O2 Flow Rate 1.00 1.00 02/17/20 00:00 Intake Total 150 ml Output Total 1375 ml Balance -1225 ml Constitutional: AAO x 3 Respiratory: chest is bilaterally symmetric, lungs clear to auscultation Cardiovascular: regular rate-rhythm, extra beats, S1 and S2; No diastolic murmur, No systolic murmur Gastrointestional: soft, audible bowel sounds Extremities: normal range of motion, non-tender, normal inspection, no lower extremity edema bilateral Neurologic/Psychiatric: no motor/sensory deficits, alert, normal mood/affect Skin: normal color, warm/dry Results/Procedures: Labs Laboratory Tests 02/17/20 02:00: White Blood Count 16.1H, Red Blood Count 3.82L, Hemoglobin 11.4L, Hematocrit 35L , Mean Corpuscular Volume 92, Mean Corpuscular Hemoglobin 30, Mean Corpuscular Hemoglobin Concent 32, Red Cell Distribution Width 14.0, Platelet Count 401H, Mean Platelet Volume 9.6, Neutrophils (%) (Auto) 80H, Lymphocytes (%) (Auto) 10L , Monocytes (%) (Auto) 9, Eosinophils (%) (Auto) 1, Basophils (%) (Auto) 0, Neutrophils # (Auto) 12.9H, Lymphocytes # (Auto) 1.6, Monocytes # (Auto) 1.5H, Eosinophils # (Auto) 0.1, Basophils # (Auto) 0.0, Sodium Level 142, Potassium Level 3.7, Chloride Level 104, Carbon Dioxide Level 27, Anion Gap 11, Blood Urea Nitrogen 20H, Creatinine 0.67, Estimat Glomerular Filtration Rate > 60, BUN/Creatinine Ratio 30, Glucose Level 111H, Calcium Level 8.7, Phosphorus Level 1.9L, Magnesium Level 2.1 Microbiology 02/14/20 Blood Culture - Preliminary, Resulted No growth 02/14/20 MRSA Screen - Final, Complete MRSA not isolated 01/25/20 Urine Culture - Final, Complete NO GROWTH A/P: Assessment/Dx: Acute respiratory failure due to active COVID-19 infection, Frequent PVCs Plan: DC amiodarone infusion, start amiodarone 200 mg daily. DC IV metoprolol, start metoprolol tartrate 25 mg 3 times a day. Sinus bradycardia noted. Continue telemetry. Keep potassium over 4 and magnesium over 2. Thank you for your consultation. Please call me if you have any questions. Peter Bello MD, FACP, FACC, FSCAI, FHRS, CCDS Interventional Cardiology Cardiac Electrophysiology Vascular Medicine and Endovascular Interventions Demario BELLO MD Feb 16, 2020 14:45
[2020-02-17] VITALS (24 sets, daily range): BP systolic 79–170; BP diastolic 52–108
[2020-02-17] MEDS: MEROPENEM 500 MG/SWFI 10 ML IV PUSH IV SCH ×8 (01:55→20:28)
[2020-02-17 02:22] LABS: BASOPHILS % (AUTO) 0 % (0-10); EOSINOPHILS # (AUTO) 0.1 10^3/uL (0.0-0.3); EOSINOPHILS % (AUTO) 1 % (0-10); HEMATOCRIT 35 % (40-54); HEMOGLOBIN 11.4 G/DL (13.3-17.7); LYMPHOCYTES # (AUTO) 1.6 X 10^3 (1.0-4.0); LYMPHOCYTES % (AUTO) 10 % (12-44); MEAN CORPUSCULAR HEMOGLOBIN 30 PG (25-34); MEAN CORPUSCULAR HGB CONC 32 G/DL (32-36); MEAN CORPUSCULAR VOLUME 92 FL (80-99); MEAN PLATELET VOLUME 9.6 FL (7.4-10.4); MONOCYTES # (AUTO) 1.5 X 10^3 (0.0-1.0); MONOCYTES % (AUTO) 9 % (0-12); NEUTROPHILS # (AUTO) 12.9 X 10^3 (1.8-7.8); NEUTROPHILS % (AUTO) 80 % (42-75); PLATELET COUNT 401 10^3/uL (130-400); WHITE BLOOD COUNT 16.1 10^3/uL (4.3-11.0)
[2020-02-17 02:47] LABS: CHLORIDE 104 MMOL/L (98-107); POTASSIUM 3.7 MMOL/L (3.6-5.0); SODIUM 142 MMOL/L (135-145)
[2020-02-17 02:48] LABS: CALCIUM 8.7 MG/DL (8.5-10.1)
[2020-02-17 02:49] LABS: GLUCOSE 111 MG/DL (70-105)
[2020-02-17 02:50] LABS: CARBON DIOXIDE 27 MMOL/L (21-32)
[2020-02-17 02:52] LABS: PHOSPHORUS 1.9 MG/DL (2.3-4.7)
[2020-02-17 02:53] LABS: BUN/CREATININE RATIO 30; CREATININE SERUM 0.67 MG/DL (0.60-1.30); GFR ESTIMATED > 60
[2020-02-17 02:55] LABS: MAGNESIUM 2.1 MG/DL (1.6-2.4)
[2020-02-17] MEDS: ALBUTEROL/IPRATROP (COMBIVENT RESPIMAT) 4 GM INHALER IH SCH ×3 (03:04→21:00)
[2020-02-17] MEDS: POTASSIUM CL 10MEQ/50ML IVPB 50 ML IV SCH (03:14)
[2020-02-17] MEDS: KCL 20 MEQ TAB (K-DUR) PO SCH (03:14)
[2020-02-17] MEDS: MAGNESIUM 1 GM/100 ML IVPB 100 ML IV SCH (03:14)
[2020-02-17] MEDS: AMIODARONE 200 MG (CORDARONE) TAB PO SCH (07:51)
[2020-02-17] MEDS: ENOXAPARIN 40 MG/0.4 ML (LOVENOX) SYR SC SCH (07:51)
[2020-02-17] MEDS: PANTOPRAZOLE 40 MG (PROTONIX) TAB PO SCH (07:51)
[2020-02-17] MEDS: meTOprolol TARTRATE 25 MG (LOPRESSOR) TABLET PO SCH ×2 (07:51→12:23)
[2020-02-17] MEDS ORDERED: PANTOPRAZOLE 40 MG (PROTONIX) TAB PO SCH (09:00)
--- NOTE | 2020-02-17 10:19 | Progress Note - Hospitalist ---
Subjective HPI/CC On Admission Date Seen by Provider: Feb 17, 2020 Time Seen by Provider: 10:14 Subjective/Events-last exam Pt confused this morning. States he was not given permission to be in the hallway but was given permission to be where he is. Discussed reasons for maintaining isolation due to COVID19 infection. He then states "I don't know where I am." Per nursing this has been his baseline mental status but he does a little better when his family calls. Objective Exam Vital Signs Vital Signs Date Time Temp Pulse Resp B/P (MAP) Pulse Ox O2 Delivery O2 Flow Rate FiO2 02/17/20 09:56 93 Nasal Cannula 1.50 02/17/20 08:00 113 29 130/92 (105) 02/17/20 07:39 36.1 02/16/20 04:00 0 Capillary Refill : Less Than 3 Seconds General Appearance: No Apparent Distress, Chronically ill Respiratory: Lungs Clear, No Respiratory Distress Cardiovascular: Regular Rate, Rhythm, No Murmur Extremity: No Calf Tenderness, No Pedal Edema Neurologic/Psychiatric: Alert, Disoriented Results/Procedures Lab Laboratory Tests 02/17/20 02:00 Patient resulted labs reviewed. Imaging: Reviewed Imaging Report Assessment/Plan Assessment and Plan Assess & Plan/Chief Complaint Acute hypoxemic respiratory failure COVID19 ARDS Secondary pneumonia s/p cardiac arrest in ER Extubated 02/12, now titrated down to 1.5lpm [facility] consulted, appreciate assistance Currently on Merrem, will continue over weekend to complete 14 day course for VAP per sensitivities Completed Remdesivir course Still on decadron- continue taper Continue Lovenox ppx PT/OT May need IRU or SNF at discharge Diagnosis/Problems Diagnosis/Problems (1) Acute respiratory failure Qualifiers: Respiratory failure complication: hypoxia Qualified Codes: J96.01 - Acute respiratory failure with hypoxia (2) Cardiac arrest Status: Acute (3) COVID-19 Status: Acute (4) Elevated LFTs Status: Resolved Resolution Date/Time: 01/28/20 @ 11:25 (5) Elevated d-dimer Status: Acute (6) Shock Status: Resolved Resolution Date/Time: 01/27/20 @ 10:41 (7) ARDS (adult respiratory distress syndrome) Status: Acute (8) Pneumonia Clinical Quality Measures DVT/VTE Risk/Contraindication: Risk Factor Score Per Nursin RFS Level Per Nursing on Admit: 4+=Very High NOEMI LUTHER MD Feb 17, 2020 10:19
[2020-02-17] MEDS ORDERED: POTASSIUM PHOSPHATE INJ 30 MM in NS (IVPB) 250 ML IV NR (10:30)
--- NOTE | 2020-02-17 11:03 | Physical Therapy Daily Note ---
PT Daily Note-Current Subjective Patient is moaning in bed. Agrees to up in recliner. Mental Status Attachments: Oxygen, [place] Catheter Transfers SCALE: Activities may be completed with or without assistive devices. 5-Dogwtiihxg-xvcjoon completes the activity by him/herself with no assistance from a helper. 5-Set-up or Clean-up Assistance-helper sets up or cleans up; patient completes activity. [place] assists only prior to or following the activity. 4-Supervision or Touching Assistance-helper provides verbal cues and/or touchi ng/steadying and/or contact guard assistance as patient completes activity. Assistance may be provided throughout the activity or intermittently. 3-Partial/Moderate Assistance-helper does LESS THAN HALF the effort. [place] lifts, holds or supports trunk or limbs, but provides less than half the effort. 2-Substantial/Maximal Assistance-helper does MORE THAN HALF the effort. [place] lifts or holds trunk or limbs and provides more than half the effort. 5-Nntofnkya-eguwjd does ALL the effort. Patient does none of the effort to complete the activity. Or, the assistance of 2 or more helpers is required for the patient to complete the activity. If activity was not attempted, code reason: 7-Patient Refused. 9-Not Applicable-not attempted and the patient did not perform the activity before the current illness, exacerbation or injury. 10-Not Attempted due to Environmental Limitations-(lack of equipment, weather restraints, etc.). 88-Not Attempted due to Medical Conditions or Safety Concerns. Roll Left & Right (QC): 3 Lying to Sitting/Side of Bed(Q: 2 Sit to Stand (QC): 2 Chair/Que-qy-Hrrzq Xfer(QC): 2 Weight Bearing Right Lower Extremity: Right Weight Bearing/Tolerated Left Lower Extremity: Left Weight Bearing/Tolerated Gait Training Does the Patient Walk?: No and Walking Goal IS indicated Exercises Seated Therapy Exercises: Ankle pumps, Long arc quads Seated Reps: 12 (2 sets) Assessment Patient requires time to complete all functional tasks. Patient continues to be very weak requiring maximum LOF for safe mobility. PT Jail Goals Jail Goals PT Automated Manufacturing Instructor Goals Time Frame: Feb 21, 2020 Roll Left & Right (QC): 3 Sit to Lying (QC): 3 Lying-Sitting on Side/Bed(QC): 3 Sit to Stand (QC): 3 Chair/Fti-wi-Gtbxy Xfer(QC): 3 PT Plan Treatment/Plan Treatment Plan: Continue Plan of Care Treatment Plan: Bed Mobility, Education, Functional Activity Berta, Functional Strength, Gait, Safety, Therapeutic Exercise, Transfers Treatment Duration: Feb 21, 2020 Frequency: 6 times per week Estimated Hrs Per Day: .25 hour per day Patient and/or Family Agrees t: Yes Time/GCodes Time In: 955 Time Out: 1010 Total Billed Treatment Time: 15 Total Billed Treatment 1 visit EX 15 min MARIAA LEON PT Feb 17, 2020 11:03
--- NOTE | 2020-02-17 14:49 | Cardiology Progress Note ---
Cardiology SOAP Progress Note Subjective: No cardiac complaints. Objective: I&O/Vital Signs 02/17/20 02/17/20 02/17/20 02/17/20 03:00 03:04 04:00 04:00 Pulse 80 71 Resp 33 36 B/P (MAP) 124/82 (96) 113/87 (96) Pulse Ox 95 95 94 O2 Delivery Nasal Cannula Nasal Cannula Nasal Cannula Nasal Cannula O2 Flow Rate 1.50 1.50 1.00 1.50 02/17/20 02/17/20 02/17/20 02/17/20 05:00 06:00 07:00 07:18 Pulse 76 84 86 81 Resp 25 28 21 B/P (MAP) 136/81 (99) 137/79 (98) 134/85 (101) Pulse Ox 94 94 93 O2 Delivery Nasal Cannula Nasal Cannula Nasal Cannula O2 Flow Rate 1.50 1.50 1.50 02/17/20 02/17/20 02/17/20 02/17/20 07:39 07:40 08:00 09:00 Temp 36.1 Pulse 113 90 Resp 29 31 B/P (MAP) 130/92 (105) 118/80 (93) Pulse Ox 88 92 O2 Delivery Nasal Cannula Nasal Cannula Nasal Cannula O2 Flow Rate 1.00 1.50 1.00 02/17/20 02/17/20 02/17/20 02/17/20 09:56 10:00 11:00 12:00 Pulse 94 101 92 Resp 38 32 21 B/P (MAP) 139/77 (97) 134/90 (105) 146/87 (106) Pulse Ox 93 92 95 96 O2 Delivery Nasal Cannula Nasal Cannula Nasal Cannula Nasal Cannula O2 Flow Rate 1.50 1.00 1.00 1.00 02/17/20 02/17/20 02/17/20 13:00 13:00 14:00 Pulse 96 96 112 Resp 18 25 B/P (MAP) 164/108 (126) 154/104 (121) Pulse Ox 95 88 O2 Delivery Nasal Cannula Nasal Cannula O2 Flow Rate 1.00 1.00 02/17/20 00:00 Intake Total 150 ml Output Total 1375 ml Balance -1225 ml Constitutional: AAO x 3 Cardiovascular: regular rate-rhythm, extra beats; No diastolic murmur, No systolic murmur Extremities: normal range of motion, non-tender, normal inspection Neurologic/Psychiatric: no motor/sensory deficits, alert, normal mood/affect Skin: normal color, warm/dry Results/Procedures: Labs Laboratory Tests 02/17/20 02:00: White Blood Count 16.1H, Red Blood Count 3.82L, Hemoglobin 11.4L, Hematocrit 35L , Mean Corpuscular Volume 92, Mean Corpuscular Hemoglobin 30, Mean Corpuscular Hemoglobin Concent 32, Red Cell Distribution Width 14.0, Platelet Count 401H, Mean Platelet Volume 9.6, Neutrophils (%) (Auto) 80H, Lymphocytes (%) (Auto) 10L , Monocytes (%) (Auto) 9, Eosinophils (%) (Auto) 1, Basophils (%) (Auto) 0, Neutrophils # (Auto) 12.9H, Lymphocytes # (Auto) 1.6, Monocytes # (Auto) 1.5H, Eosinophils # (Auto) 0.1, Basophils # (Auto) 0.0, Sodium Level 142, Potassium Level 3.7, Chloride Level 104, Carbon Dioxide Level 27, Anion Gap 11, Blood Urea Nitrogen 20H, Creatinine 0.67, Estimat Glomerular Filtration Rate > 60, BUN/Creatinine Ratio 30, Glucose Level 111H, Calcium Level 8.7, Phosphorus Level 1.9L, Magnesium Level 2.1 Microbiology 02/14/20 Blood Culture - Preliminary, Resulted No growth 02/14/20 MRSA Screen - Final, Complete MRSA not isolated 01/25/20 Urine Culture - Final, Complete NO GROWTH A/P: Assessment/Dx: Acute respiratory failure due to active COVID-19 infection, Frequent PVCs Plan: DC amiodarone infusion, start amiodarone 200 mg daily. DC IV metoprolol, initially started metoprolol tartrate 25 mg 3 times a day. We will increase to metoprolol tartrate 50 mg 3 times a day. Continue telemetry. Keep potassium over 4 and magnesium over 2. Thank you for your consultation. Please call me if you have any questions. Peter Bello MD, FACP, FACC, FSCAI, FHRS, CCDS Interventional Cardiology Cardiac Electrophysiology Vascular Medicine and Endovascular Interventions Demario BELLO MD Feb 17, 2020 14:49
[2020-02-17] MEDS ORDERED: AMIODARONE FOR BOLUS 150 MG in D5W 100 ML IVPB 100 ML IV SCH (17:33)
[2020-02-17] MEDS ORDERED: dilTIAZem DRIP PRE-MIX 125 ML IV ONE (17:34)
[2020-02-17] MEDS ORDERED: AMIODARONE INJECTION 150 MG in D5W 100 ML IVPB 100 ML IV ONE (17:35)
[2020-02-17] MEDS ORDERED: DexMEDEtomidine 250 ML DRIP 250 ML IV SCH (17:35)
--- NOTE | 2020-02-17 17:35 | NUR ---
patient noted to have rhythm change. This nurse entered room, obtained an ekg et called Dr. Bello with EKG results et notified of rhythm change to AFIB. Received new orders, see DANIELITORNolvia Dodson gtt started et noted new order entered by [facility] for Amiodarone gtt. Contacted Dr. Bello, who stated he did not want Amiodarone on patient at this time. Patient is receiving PO Amio.
[2020-02-17] MEDS: dilTIAZem DRIP PRE-MIX 125 ML IV SCH (17:40)
[2020-02-17] MEDS ORDERED: dilTIAZem DRIP PRE-MIX 125 ML IV SCH (17:45)
[2020-02-17] MEDS ORDERED: AMIODARONE INJECTION 450 MG in D5W IV SOLUTION (EXCEL) 250 ML IV SCH (17:45)
[2020-02-17] MEDS ORDERED: MIDAZOLAM 2 MG/2 ML (VERSED) VIAL ONE (17:53)
[2020-02-17] MEDS ORDERED: fentaNYL INJECTION 100 MCG/2 ML AMP ONE (17:55)
[2020-02-17] MEDS ORDERED: MIDAZOLAM 5 MG/5 ML (VERSED) VIAL ONE ×2 (17:55→18:15)
[2020-02-17] MEDS ORDERED: NS IV 1000 ML 1,000 ML ONE (17:59)
[2020-02-17] MEDS ORDERED: MIDAZOLAM 2 MG/2 ML (VERSED) VIAL IVP ONE ×3 (18:00→18:15)
--- NOTE | 2020-02-17 18:00 | NUR ---
[employer] energy conservation technician, Keaton Collazo, reported that he was paged to visit the pt on Wednesday after 6pm. When the training and development coordinator arrived outside the room, the pt asked if the training and development coordinator was a store protection specialist. When the training and development coordinator clarified he was not a store protection specialist, the pt declined the training and development coordinator. The training and development coordinator offered to contact a store protection specialist for the pt, which was also declined.
[2020-02-17] MEDS ORDERED: AMIODARONE (OMNICELL DRIP KIT) 150 MG/3 ML IV ONE (18:13)
[2020-02-17] MEDS ORDERED: AMIODARONE 450 MG/9 ML (CORDARONE) VIAL IV ONE ×2 (18:13→18:43)
[2020-02-17] MEDS ORDERED: D5W 100 ML IVPB 100 ML IV ONE (18:14)
[2020-02-17] MEDS ORDERED: LIDOCAINE BOLUS 100 MG/5 ML (IMS) SYR ONE (18:34)
[2020-02-17] MEDS ORDERED: LIDOCAINE DRIP 500 ML IV ONE (18:35)
[2020-02-17] MEDS ORDERED: DexMEDEtomidine 250 ML DRIP 250 ML IV ONE (18:37)
[2020-02-17] MEDS: LIDOCAINE DRIP 500 ML IV SCH (18:37)
[2020-02-17] MEDS ORDERED: D5W IV SOLUTION (EXCEL) 250 ML IV ONE (18:44)
[2020-02-17 18:45] LABS: BASOPHILS % (AUTO) 0 % (0-10); EOSINOPHILS % (AUTO) 0 % (0-10); HEMATOCRIT 37 % (40-54); HEMOGLOBIN 12.3 G/DL (13.3-17.7); LYMPHOCYTES # (AUTO) 1.1 X 10^3 (1.0-4.0); LYMPHOCYTES % (AUTO) 6 % (12-44); MEAN CORPUSCULAR HEMOGLOBIN 30 PG (25-34); MEAN CORPUSCULAR HGB CONC 33 G/DL (32-36); MEAN CORPUSCULAR VOLUME 91 FL (80-99); MEAN PLATELET VOLUME 9.8 FL (7.4-10.4); MONOCYTES # (AUTO) 1.2 X 10^3 (0.0-1.0); MONOCYTES % (AUTO) 7 % (0-12); NEUTROPHILS # (AUTO) 16.2 X 10^3 (1.8-7.8); NEUTROPHILS % (AUTO) 87 % (42-75); PLATELET COUNT 464 10^3/uL (130-400); RED CELL DISTRIBUTION WIDTH 14.3 % (10.0-14.5); WHITE BLOOD COUNT 18.6 10^3/uL (4.3-11.0)
[2020-02-17] MEDS ORDERED: ESMOLOL DRIP PREMIX 250 ML IV ONE (18:45)
[2020-02-17] MEDS ORDERED: LIDOCAINE DRIP 500 ML IV SCH (18:45)
[2020-02-17] MEDS: AMIODARONE INJECTION 450 MG in D5W IV SOLUTION (EXCEL) 250 ML IV SCH (18:50)
[2020-02-17] MEDS: ESMOLOL DRIP PREMIX 250 ML IV SCH (18:51)
[2020-02-17 18:53] LABS: ALBUMIN 3.3 GM/DL (3.2-4.5)
[2020-02-17 18:54] LABS: CHLORIDE 103 MMOL/L (98-107); POTASSIUM 4.3 MMOL/L (3.6-5.0); SODIUM 141 MMOL/L (135-145)
[2020-02-17 18:55] LABS: CALCIUM 8.8 MG/DL (8.5-10.1)
[2020-02-17 18:56] LABS: GLUCOSE 188 MG/DL (70-105); TOTAL PROTEIN 6.8 GM/DL (6.4-8.2)
[2020-02-17 18:57] LABS: CARBON DIOXIDE 24 MMOL/L (21-32)
[2020-02-17 18:58] LABS: BILIRUBIN,TOTAL 0.7 MG/DL (0.1-1.0)
[2020-02-17 18:59] LABS: PHOSPHORUS 2.5 MG/DL (2.3-4.7)
[2020-02-17 19:00] LABS: ALKALINE PHOSPHATASE 111 U/L (40-136); GFR ESTIMATED > 60
[2020-02-17 19:01] LABS: BUN/CREATININE RATIO 29
[2020-02-17 19:03] LABS: ALANINE AMINOTRANSFERASE 31 U/L (0-55); MAGNESIUM 2.1 MG/DL (1.6-2.4)
[2020-02-17] MEDS ORDERED: LORazepam INJ 2 MG/ML (ATIVAN) VIAL ONE (19:04)
[2020-02-17] MEDS ORDERED: 1/2 NS IV SOLUTION 1,000 ML IV PRN (19:31)
[2020-02-17] MEDS ORDERED: LORazepam INJ 2 MG/ML (ATIVAN) VIAL IV PRN (19:45)
[2020-02-17] MEDS ORDERED: D5 1/2 NS 1000 ML IV SOLUTION 1,000 ML IV PRN (19:45)
[2020-02-17] MEDS ORDERED: LORazepam INJ 2 MG/ML (ATIVAN) VIAL IM/IV PRN (19:45)
[2020-02-17] MEDS ORDERED: LORazepam 1 MG (ATIVAN) TAB PO PRN (19:45)
--- NOTE | 2020-02-17 20:26 | NUR ---
TIME LINE NOTE: 1738: CARDIZEM STARTED AT 5 1740: CARDIZEM INCREASED TO 10 1741: CALL TO DR. NGUYEN-PT SUSTAINED HR 230'S, STATED PT WILL NEED CARDIOVERSION, HE IS NOT IN HOSPITAL, WILL NEED TO FIND PHYSICIAN 174: CALL PLACED TO EICU EXPLAINED SITUATION, WHILE SPEAKING PATIENT WAS BEING HOOKED UP TO ZOLL. 175: DR. CRUZED INTO ROOM, STATED HE WILL SEND OVER ORDERS, ASKED WHAT MEDS HE WOULD LIKE SO WE CAN HAVE THEM PULLED 1756: 2 VERSED 175: 2 VERSED 1802: 200J SHOCK 1803: 1 VERSED 1804: 200J SHOCK 1810: DR. WHITTAKER IN ROOM 181: DR. LUTHER IN ROOM 182: AMIO BOLUS STARTED 182: DR. NGUYEN CALLED ET UPDATED 1824: 50 FENTANYL 1826: 2 VERSED 182: CARDIZEM INCREASED TO 20 1828: 200J SHOCK 183: LABS CBC, CMP, MAG, PHOS DRAWN 183: LIDOCAINE BOLUS 20G L HAND IV STARTED 1837: LIDOCAINE GTT STARTED 1840: PRECEDEX STARTED AT 1.5MCG/KG/HR 1845: 50 FENTANYL 2 VERSED 1847: 200J SHOCK 1850: AMIO GTT STARTED AT 33MLS 185: ESMOLOL STARTED 185: ON PHONE WITH AUDREY TO UPDATE FAMILY- FAMILY STATED FULL CODE ET REINTUBATION IF NEEDED 1900: ESMOLOL INCREASED TO 75 MCG/KG 190: 1 MG ATIVAN 1910: ESMOLOL INCREASED TO 80 MCG/KG 1914: 1 MG ATIVAN 191: ESMOLOL INCREASED TO 100 MCG/KG 192: LIDOCAINE INCREASED TO 1.3 192: LIDOCAINE INCREASED TO 2 1922: CARDIZEM DOWN TO 15 1927: CARDIZEM DOWN TO 10 1934: CARDIZEM DOWN TO 5
[2020-02-17] MEDS ORDERED: LACTATED RINGERS 1,000 ML IV ONE (20:47)
[2020-02-17 20:52] LABS: FIBRIN DEGRADATION PRODUCTS 2.31 UG/ML (0.00-0.49); INR 1.6 (0.8-1.4)
[2020-02-17] MEDS ORDERED: LACTATED RINGERS 1,000 ML IV SCH (21:00)
[2020-02-17] MEDS: meTOprolol TARTRATE 50 MG (LOPRESSOR) TAB PO SCH (21:01)
[2020-02-18] VITALS (24 sets, daily range): BP systolic 113–146; BP diastolic 66–94
[2020-02-18] MEDS: APIXABAN 5 MG (ELIQUIS) TABLET PO SCH ×3 (00:26→20:12)
[2020-02-18] MEDS: MEROPENEM 500 MG/SWFI 10 ML IV PUSH IV SCH ×8 (02:46→18:15)
[2020-02-18] MEDS: AMIODARONE INJECTION 450 MG in D5W IV SOLUTION (EXCEL) 250 ML IV SCH ×2 (02:48→17:06)
[2020-02-18 02:57] LABS: BASOPHILS % (AUTO) 0 % (0-10); EOSINOPHILS % (AUTO) 0 % (0-10); HEMATOCRIT 31 % (40-54); HEMOGLOBIN 9.8 G/DL (13.3-17.7); LYMPHOCYTES # (AUTO) 1.2 X 10^3 (1.0-4.0); LYMPHOCYTES % (AUTO) 12 % (12-44); MEAN CORPUSCULAR HEMOGLOBIN 29 PG (25-34); MEAN CORPUSCULAR HGB CONC 32 G/DL (32-36); MEAN CORPUSCULAR VOLUME 93 FL (80-99); MEAN PLATELET VOLUME 9.8 FL (7.4-10.4); MONOCYTES # (AUTO) 1.1 X 10^3 (0.0-1.0); MONOCYTES % (AUTO) 11 % (0-12); NEUTROPHILS # (AUTO) 7.7 X 10^3 (1.8-7.8); NEUTROPHILS % (AUTO) 77 % (42-75); PLATELET COUNT 287 10^3/uL (130-400); WHITE BLOOD COUNT 10.1 10^3/uL (4.3-11.0)
[2020-02-18 03:02] LABS: CHLORIDE 99 MMOL/L (98-107); POTASSIUM 3.6 MMOL/L (3.6-5.0); SODIUM 132 MMOL/L (135-145)
[2020-02-18 03:04] LABS: CALCIUM 7.8 MG/DL (8.5-10.1); GLUCOSE 357 MG/DL (70-105)
[2020-02-18 03:06] LABS: CARBON DIOXIDE 24 MMOL/L (21-32)
[2020-02-18 03:08] LABS: CREATININE SERUM 0.74 MG/DL (0.60-1.30); GFR ESTIMATED > 60; PHOSPHORUS 2.5 MG/DL (2.3-4.7)
[2020-02-18 03:09] LABS: BUN/CREATININE RATIO 30
[2020-02-18 03:10] LABS: MAGNESIUM 1.9 MG/DL (1.6-2.4)
[2020-02-18] MEDS: ALBUTEROL/IPRATROP (COMBIVENT RESPIMAT) 4 GM INHALER IH SCH ×4 (03:26→18:49)
[2020-02-18] MEDS: POTASSIUM CL 10MEQ/50ML IVPB 50 ML IV SCH ×3 (04:31→05:45)
[2020-02-18] MEDS: ESMOLOL DRIP PREMIX 250 ML IV SCH ×3 (04:31→21:53)
[2020-02-18] MEDS: MAGNESIUM 1 GM/100 ML IVPB 100 ML IV SCH (04:32)
[2020-02-18] MEDS: KCL 20 MEQ TAB (K-DUR) PO SCH (04:32)
[2020-02-18] MEDS: PANTOPRAZOLE 40 MG (PROTONIX) TAB PO SCH (07:55)
[2020-02-18] MEDS: ENOXAPARIN 40 MG/0.4 ML (LOVENOX) SYR SC SCH (07:55)
[2020-02-18] MEDS: meTOprolol TARTRATE 50 MG (LOPRESSOR) TAB PO SCH ×3 (07:56→20:18)
--- NOTE | 2020-02-18 10:15 | Progress Note - Hospitalist ---
Subjective HPI/CC On Admission Date Seen by Provider: Feb 18, 2020 Time Seen by Provider: 10:09 Subjective/Events-last exam Pt reports being tired this morning. Would not actually speak to me or clinical services consultant but did nod and shake his head appropriately. Denies any pain, needs, SOB, or chest pain. Language line used. Objective Exam Vital Signs Vital Signs Date Time Temp Pulse Resp B/P (MAP) Pulse Ox O2 Delivery O2 Flow Rate FiO2 02/18/20 08:29 38.0 02/18/20 08:20 97 Nasal Cannula 1.50 02/18/20 07:00 66 18 114/85 (95) 02/18/20 00:13 35 Capillary Refill : Less Than 3 Seconds General Appearance: No Apparent Distress Respiratory: Lungs Clear, No Respiratory Distress Cardiovascular: Regular Rate, Rhythm, No Murmur Gastrointestinal: Normal Bowel Sounds, Soft Genital/Rectal: Other Extremity: No Calf Tenderness, No Pedal Edema Neurologic/Psychiatric: Alert, Depressed Affect Results/Procedures Lab Laboratory Tests 02/17/20 18:37 02/18/20 02:40 Patient resulted labs reviewed. Imaging: Reviewed Imaging Report Assessment/Plan Assessment and Plan Assess & Plan/Chief Complaint Atrial Fibrillation with RVR Was titrated off cardizem and esmolol yesterday due to hypotension Now in sinus rhythm Cardiology consulted, appreciate assistance with this complex case Still on amiodarone and lidocaine Acute hypoxemic respiratory failure COVID19 ARDS Secondary pneumonia s/p cardiac arrest in ER Extubated 02/12, now titrated down to 1.5lpm NE TeleICU consulted, appreciate assistance Currently on Merrem, will continue over weekend to complete 14 day course for VAP per sensitivities Completed Remdesivir course Still on decadron- continue taper Continue Lovenox ppx PT/OT May need IRU or SNF at discharge Confusion ?withdrawal from sedative medications On CIWA protocol Morphine available as well for possible opoid withdrawal May benefit from MRI tomorrow if he would tolerate it Anemia No evidence of bleeding Likely dilutional Monitor closely Continue eliquis for now for stroke ppx Critical Care Critically Ill Patient Diagnosis/Problems Diagnosis/Problems (1) Acute respiratory failure Qualifiers: Respiratory failure complication: hypoxia Qualified Codes: J96.01 - Acute respiratory failure with hypoxia (2) Cardiac arrest Status: Acute (3) COVID-19 Status: Acute (4) Elevated LFTs Status: Resolved Resolution Date/Time: 01/28/20 @ 11:25 (5) Elevated d-dimer Status: Acute (6) Shock Status: Resolved Resolution Date/Time: 01/27/20 @ 10:41 (7) ARDS (adult respiratory distress syndrome) Status: Acute (8) Pneumonia (9) Hypotension (10) Atrial fibrillation with RVR Clinical Quality Measures DVT/VTE Risk/Contraindication: Risk Factor Score Per Nursin RFS Level Per Nursing on Admit: 4+=Very High NOEMI LUTHER MD Feb 18, 2020 10:14
[2020-02-18] MEDS ORDERED: LIDOCAINE BOLUS 100 MG/5 ML (IMS) SYR INJ ONE (10:59)
--- NOTE | 2020-02-18 14:30 | NUR ---
Extensive conversation (approx 45 minutes) with pt, pt's sister, et nephew. Spoke about pt dietary preferences and general likes to engage pt in care et environment. Family gave ideas. Family stated they may make pt some food et bring it because pt telling family he does not like food here. This RN did obtain dietary preferences for the kitchen et updated kitchen staff,
--- NOTE | 2020-02-18 14:44 | Cardiology Progress Note ---
Cardiology SOAP Progress Note Subjective: Events of overnight noted. Patient not complaining of chest pain or shortness of breath. Objective: I&O/Vital Signs 02/18/20 02/18/20 02/18/20 02/18/20 03:00 03:26 04:00 04:00 Temp 36.7 Pulse 71 71 Resp 16 15 B/P (MAP) 133/83 (100) 130/83 (99) Pulse Ox 100 98 97 O2 Delivery Nasal Cannula Nasal Cannula Nasal Cannula O2 Flow Rate 1.50 1.50 1.50 02/18/20 02/18/20 02/18/20 02/18/20 04:00 05:00 06:00 07:00 Pulse 71 76 66 Resp 18 17 18 B/P (MAP) 137/75 (95) 129/75 (93) 114/85 (95) Pulse Ox 97 97 91 97 O2 Delivery Nasal Cannula Nasal Cannula Nasal Cannula Nasal Cannula O2 Flow Rate 1.50 1.50 1.50 1.50 02/18/20 02/18/20 02/18/20 02/18/20 07:05 08:00 08:20 08:29 Temp 38.0 Pulse 86 70 Resp 20 B/P (MAP) 138/85 (102) Pulse Ox 98 97 O2 Delivery Nasal Cannula Nasal Cannula O2 Flow Rate 1.50 1.50 02/18/20 02/18/20 02/18/20 02/18/20 09:00 10:00 11:00 11:34 Pulse 67 71 65 Resp 32 24 41 B/P (MAP) 127/80 (96) 116/68 (84) 122/73 (89) Pulse Ox 97 95 95 95 O2 Delivery Nasal Cannula Nasal Cannula Nasal Cannula Nasal Cannula O2 Flow Rate 1.50 1.50 1.50 2.00 02/18/20 02/18/20 02/18/20 12:00 13:00 13:09 Temp 36.2 Pulse 72 72 Resp 27 44 B/P (MAP) 123/79 (94) 139/93 (108) Pulse Ox 89 98 O2 Delivery Nasal Cannula Nasal Cannula O2 Flow Rate 1.50 1.50 02/18/20 00:00 Intake Total 525 ml Output Total 750 ml Balance -225 ml Constitutional: AAO x 3 Respiratory: chest is bilaterally symmetric, lungs clear to auscultation Cardiovascular: regular rate-rhythm, extra beats, S1 and S2 Gastrointestional: soft, audible bowel sounds Extremities: normal range of motion, non-tender, normal inspection Neurologic/Psychiatric: no motor/sensory deficits, alert, normal mood/affect, oriented x 3 Skin: normal color Results/Procedures: Labs Laboratory Tests 02/17/20 18:37: White Blood Count 18.6H, Red Blood Count 4.09L, Hemoglobin 12.3L, Hematocrit 37L , Mean Corpuscular Volume 91, Mean Corpuscular Hemoglobin 30, Mean Corpuscular Hemoglobin Concent 33, Red Cell Distribution Width 14.3, Platelet Count 464H, Mean Platelet Volume 9.8, Neutrophils (%) (Auto) 87H, Lymphocytes (%) (Auto) 6L, Monocytes (%) (Auto) 7, Eosinophils (%) (Auto) 0, Basophils (%) (Auto) 0, Neutrophils # (Auto) 16.2H, Lymphocytes # (Auto) 1.1, Monocytes # (Auto) 1.2H, Eosinophils # (Auto) 0.0, Basophils # (Auto) 0.0, Sodium Level 141, Potassium Level 4.3, Chloride Level 103, Carbon Dioxide Level 24, Anion Gap 14, Blood Urea Nitrogen 23H, Creatinine 0.80, Estimat Glomerular Filtration Rate > 60, BUN/Creatinine Ratio 29, Glucose Level 188H, Calcium Level 8.8, Corrected Calcium 9.4, Phosphorus Level 2.5, Magnesium Level 2.1, Total Bilirubin 0.7, Aspartate Amino Transf (AST/SGOT) 22, Alanine Aminotransferase (ALT/SGPT) 31, Alkaline Phosphatase 111, Total Protein 6.8, Albumin 3.3 02/17/20 20:20: Prothrombin Time 19.0H, INR Comment 1.6H, Activated Partial Thromboplast Time 38H, Fibrinogen 231, D-Dimer 2.31H, Thyroid Stimulating Hormone (TSH) 1.34 02/18/20 02:40: White Blood Count 10.1, Red Blood Count 3.34L, Hemoglobin 9.8#L, Hematocrit 31L, Mean Corpuscular Volume 93, Mean Corpuscular Hemoglobin 29, Mean Corpuscular Hemoglobin Concent 32, Red Cell Distribution Width 14.0, Platelet Count 287, Mean Platelet Volume 9.8, Neutrophils (%) (Auto) 77H, Lymphocytes (%) (Auto) 12, Monocytes (%) (Auto) 11, Eosinophils (%) (Auto) 0, Basophils (%) (Auto) 0, Neutrophils # (Auto) 7.7, Lymphocytes # (Auto) 1.2, Monocytes # (Auto) 1.1H, Eosinophils # (Auto) 0.0, Basophils # (Auto) 0.0, Sodium Level 132L, Potassium Level 3.6, Chloride Level 99, Carbon Dioxide Level 24, Anion Gap 9, Blood Urea Nitrogen 22H, Creatinine 0.74, Estimat Glomerular Filtration Rate > 60, BUN/Creatinine Ratio 30, Glucose Level 357H, Calcium Level 7.8L, Phosphorus Level 2.5, Magnesium Level 1.9 Microbiology 02/14/20 Blood Culture - Preliminary, Resulted No growth 02/14/20 MRSA Screen - Final, Complete MRSA not isolated 01/25/20 Urine Culture - Final, Complete NO GROWTH A/P: Assessment/Dx: Acute respiratory failure due to active COVID-19 infection, Frequent PVCs, Atrial fibrillation with rapid ventricular rate Plan: Patient was already on amiodarone 200 mg daily and metoprolol 50 mg 3 times a day for frequent PVCs. Patient developed narrow complex tachycardia with cycle length irregularity with maximum heart rate over 220 bpm. Likely atrial fibrillation with rapid ventricular rate. Patient was given amiodarone bolus and shocked numerous times by Dr. Mas and Dr. Beltran however patient continued to be in atrial fibrillation. We started the patient on lidocaine infusion and DC Cardizem and started esmolol infusion. Heart rate became better controlled in the 120's. Later in the evening the patient converted to sinus rhythm. Has been in sinus rhythm all night. We will continue amiodarone and lidocaine for today. We will convert to amiodarone by mouth and by mouth mexiletine tomorrow. Also change esmolol to by mouth beta blockers tomorrow. Unclear etiology of such a fast rate of atrial fibrillation. Thank you for your consultation. Please call me if you have any questions. Peter Bello MD, FACP, FACC, FSCAI, FHRS, CCDS Interventional Cardiology Cardiac Electrophysiology Vascular Medicine and Endovascular Interventions Demario BELLO MD Feb 18, 2020 14:44
[2020-02-18] MEDS: LIDOCAINE DRIP 500 ML IV SCH (17:07)
[2020-02-18] MEDS: dilTIAZem DRIP PRE-MIX 125 ML IV SCH (17:07)
[2020-02-19] VITALS (25 sets, daily range): BP systolic 112–153; BP diastolic 66–98
[2020-02-19] MEDS: MEROPENEM 500 MG/SWFI 10 ML IV PUSH IV SCH ×2 (03:08)
[2020-02-19] MEDS: LIDOCAINE DRIP 500 ML IV SCH (03:11)
[2020-02-19] MEDS: ALBUTEROL/IPRATROP (COMBIVENT RESPIMAT) 4 GM INHALER IH SCH ×4 (03:22→20:10)
[2020-02-19 03:36] LABS: BASOPHILS % (AUTO) 0 % (0-10); EOSINOPHILS # (AUTO) 0.3 10^3/uL (0.0-0.3); EOSINOPHILS % (AUTO) 3 % (0-10); HEMATOCRIT 33 % (40-54); HEMOGLOBIN 10.5 G/DL (13.3-17.7); LYMPHOCYTES # (AUTO) 1.4 X 10^3 (1.0-4.0); LYMPHOCYTES % (AUTO) 13 % (12-44); MEAN CORPUSCULAR HEMOGLOBIN 30 PG (25-34); MEAN CORPUSCULAR HGB CONC 32 G/DL (32-36); MEAN CORPUSCULAR VOLUME 93 FL (80-99); MEAN PLATELET VOLUME 10.2 FL (7.4-10.4); MONOCYTES % (AUTO) 9 % (0-12); NEUTROPHILS # (AUTO) 8.1 X 10^3 (1.8-7.8); NEUTROPHILS % (AUTO) 75 % (42-75); PLATELET COUNT 272 10^3/uL (130-400); WHITE BLOOD COUNT 10.8 10^3/uL (4.3-11.0)
[2020-02-19 03:44] LABS: CHLORIDE 106 MMOL/L (98-107); POTASSIUM 3.6 MMOL/L (3.6-5.0); SODIUM 140 MMOL/L (135-145)
[2020-02-19 03:45] LABS: CALCIUM 8.1 MG/DL (8.5-10.1)
[2020-02-19 03:46] LABS: GLUCOSE 105 MG/DL (70-105)
[2020-02-19 03:47] LABS: CARBON DIOXIDE 26 MMOL/L (21-32)
[2020-02-19 03:49] LABS: PHOSPHORUS 2.8 MG/DL (2.3-4.7)
[2020-02-19 03:50] LABS: CREATININE SERUM 0.71 MG/DL (0.60-1.30); GFR ESTIMATED > 60
[2020-02-19 03:51] LABS: BUN/CREATININE RATIO 30
[2020-02-19 03:52] LABS: MAGNESIUM 2.1 MG/DL (1.6-2.4)
[2020-02-19] MEDS: POTASSIUM CL 10MEQ/50ML IVPB 50 ML IV SCH (04:07)
[2020-02-19] MEDS: MAGNESIUM 1 GM/100 ML IVPB 100 ML IV SCH (04:07)
[2020-02-19] MEDS: KCL 20 MEQ TAB (K-DUR) PO SCH (04:08)
[2020-02-19] MEDS: ESMOLOL DRIP PREMIX 250 ML IV SCH ×2 (04:09→15:30)
--- NOTE | 2020-02-19 05:31 | Pulmonary Progress Note ---
Subjective Date Seen by a Provider: Feb 19, 2020 Time Seen by a Provider: 05:26 Subjective/Events-last exam Pt is doing better respiratory reid. Sepsis Event Evaluation Height, Weight, BMI Height: '" Weight: lbs. oz. kg; 30.00 BMI Method: Exam Exam Vital Signs Date Time Temp Pulse Resp B/P (MAP) Pulse Ox O2 Delivery O2 Flow Rate FiO2 02/19/20 05:00 61 23 129/80 (96) 97 Nasal Cannula 1.00 02/19/20 04:00 58 24 132/83 (99) 98 Nasal Cannula 1.00 02/19/20 03:50 Nasal Cannula 1.00 02/19/20 03:28 36.6 Nasal Cannula 1.00 02/19/20 03:23 97 Nasal Cannula 1.00 02/19/20 03:11 61 120/80 02/19/20 03:00 63 22 120/80 (93) 96 Nasal Cannula 1.50 02/19/20 02:00 67 21 130/83 (99) 98 Nasal Cannula 1.50 02/19/20 01:00 63 25 112/67 (82) 97 Nasal Cannula 1.50 02/19/20 01:00 65 02/19/20 00:00 Nasal Cannula 1.50 02/19/20 00:00 67 22 126/72 (90) 98 Nasal Cannula 1.50 02/19/20 00:00 36.8 02/18/20 23:00 68 20 121/76 (91) 97 Nasal Cannula 1.50 02/18/20 22:00 74 24 123/88 (100) 96 Nasal Cannula 1.50 02/18/20 21:00 76 22 118/76 (90) 96 Nasal Cannula 1.50 20 20:21 37.2 Nasal Cannula 1.50 02/17/20 20:00 84 22 136/73 (94) 95 Nasal Cannula 1.50 20 20:00 Nasal Cannula 1.50 7/20 19:00 84 24 115/78 (90) 96 Nasal Cannula 1.50 719/20 19:00 84 20 18:49 97 Nasal Cannula 3.00 02/18/20 18:00 96 29 125/83 (97) 99 Nasal Cannula 1.50 02/18/20 17:00 88 18 123/82 (96) 96 Nasal Cannula 1.50 02/18/20 16:31 95 Nasal Cannula 2.00 02/18/20 16:00 73 54 113/78 (90) 96 Nasal Cannula 1.50 02/18/20 16:00 37.3 02/18/20 15:51 97 Nasal Cannula 3.00 02/18/20 15:00 73 146/91 (109) 97 Nasal Cannula 1.50 02/18/20 14:00 68 29 139/94 (109) 98 Nasal Cannula 1.50 02/18/20 13:09 36.2 02/18/20 13:06 72 02/18/20 13:00 72 44 139/93 (108) 98 Nasal Cannula 1.50 02/18/20 12:00 72 27 123/79 (94) 89 Nasal Cannula 1.50 02/18/20 12:00 94 Nasal Cannula 2.00 02/18/20 11:34 95 Nasal Cannula 2.00 02/18/20 11:00 65 41 122/73 (89) 95 Nasal Cannula 1.50 02/18/20 10:00 71 24 116/68 (84) 95 Nasal Cannula 1.50 02/18/20 09:00 67 32 127/80 (96) 97 Nasal Cannula 1.50 02/18/20 08:29 38.0 02/18/20 08:20 97 Nasal Cannula 1.50 02/18/20 08:00 70 20 138/85 (102) 98 Nasal Cannula 1.50 02/18/20 07:05 86 02/18/20 07:00 66 18 114/85 (95) 97 Nasal Cannula 1.50 02/18/20 06:00 76 17 129/75 (93) 91 Nasal Cannula 1.50 I & O 02/19/20 07:00 Intake Total 1869 ml Output Total 1820 ml Balance 49 ml Height & Weight Height: '" Weight: lbs. oz. kg; 30.00 BMI Method: General Appearance: No Apparent Distress HEENT: Other (ET/OG in place) Respiratory: Lungs Clear, No Respiratory Distress Cardiovascular: Regular Rate, Rhythm, No Murmur Capillary Refill: Less Than 3 Seconds Gastrointestinal: normal bowel sounds, soft Extremity: No Calf Tenderness, No Pedal Edema Neurologic/Psychiatric: Alert, Depressed Affect Skin: Normal Color, Warm/Dry Results Lab Laboratory Tests 02/17/20 18:37 02/18/20 02:40 02/19/20 03:25 Assessment/Plan Assessment/Plan Acute respiratory failure secondary to COVID with improving ARDS- -Extubated 02/02 -Now on only 1 liter of oxygen NC - decadron 4mg daily -s/p Remdesivir tx PNA with Enterobactor -Continue Merrem Afib RVR -Currently on Amio, and esmolol gtt -Cardiology following hypokalemia -replace HTN -Lopressor -Hydralazine PRN STEFANI FORDE DO Feb 19, 2020 05:31
[2020-02-19] MEDS ORDERED: KCL 20 MEQ TAB (K-DUR) PO ONE (06:00)
[2020-02-19] MEDS: AMIODARONE INJECTION 450 MG in D5W IV SOLUTION (EXCEL) 250 ML IV SCH (08:26)
[2020-02-19] MEDS: meTOprolol TARTRATE 50 MG (LOPRESSOR) TAB PO SCH ×3 (08:31→20:09)
[2020-02-19] MEDS: MEROPENEM 500 MG in WATER (STERILE) FOR INJECTION 10 ML IV SCH ×3 (08:31→20:10)
[2020-02-19] MEDS: PANTOPRAZOLE 40 MG (PROTONIX) TAB PO SCH (08:31)
[2020-02-19] MEDS: APIXABAN 5 MG (ELIQUIS) TABLET PO SCH ×2 (08:31→20:09)
--- NOTE | 2020-02-19 10:05 | Occupational Ther Daily Note ---
OT Current Status-Daily Note Subjective Pt laying in bed, agreeable to OT Tx. Pt and OT communicated through simple Vietnamese & Greek phrases and gestures as Vietnamese is not pt's primary language. Pt appeared more alert today, asking OT how she was doing at the beginning of the session Mental Status/Objective Attachments: Wilson Catheter, Oxygen ADL-Treatment Therapy Code Descriptions/Definitions Functional [place] Measure: 0=Not Assessed/NA 4=Minimal Assistance 1=Total Assistance 5=Supervision or Setup 2=Maximal Assistance 6=Modified El[place] 3=Moderate Assistance 7=Complete IndependenceSCALE: Activities may be completed with or without assistive devices. 1-Qyynwcvrou-ruikluc completes the activity by him/herself with no assistance from a helper. 5-Set-up or Clean-up Assistance-helper sets up or cleans up; patient completes a ctivity. [place] assists only prior to or following the activity. 4-Supervision or Touching Assistance-helper provides verbal cues and/or touching/steadying and/or contact guard assistance as patient completes activity. Assistance may be provided throughout the activity or intermittently. 3-Partial/Moderate Assistance-helper does LESS THAN HALF the effort. [place] lifts, holds or supports trunk or limbs, but provides less than half the effort. 2-Substantial/Maximal Assistance-helper does MORE THAN HALF the effort. [place] lifts or holds trunk or limbs and provides more than half the effort. 2-Mknjsxyrj-gawkay does ALL the effort. Patient does none of the effort to complete the activity. Or, the assistance of 2 or more helpers is required for the patient to complete the activity. If activity was not attempted, code reason: 7-Patient Refused. 9-Not Applicable-not attempted and the patient did not perform the activity before the current illness, exacerbation or injury. 10-Not Attempted due to Environmental Limitations-(lack of equipment, weather restraints, etc.). 88-Not Attempted due to Medical Conditions or Safety Concerns. Eating (QC): 7 (Pt declined having a drink of sprite or water post tx.) Other Treatment Pt laying in bed, agreeable to OT tx with focus on UE exercise. In order to increase BUE strength and functional endurance, pt completed x10 reps of the following BUE exercises: shoulder flexion, elbow flexion/extension, and finger flexion/extension. Pt took a rest break as needed between exercises. Pt able to follow gestures today to perform AROM for all exercises. Pt's O2 sat remained in the upper 90's throughout tx. OT offered pt a drink of water or his sprite after exercises, but pt declined. Pt reported he was good. Post OT tx, pt laying in bed, call light in reach and all needs met. Education OT Patient Education: Correct positioning, Exercise program, Modified ADL techniques, Progress toward Goal/Update tx plan, Purpose of tx/functional activities Teaching Recipient: Patient Teaching Methods: Demonstration Response to Teaching: Return Demonstration OT Quill Skinner Goals Retirement Goals Time Frame: Mar 01, 2020 Eating (QC): 6 Oral Hygiene (QC): 6 Toileting Hygiene (QC): 6 Shower/Bathe Self (QC): 6 Upper Body Dressing (QC): 6 Lower Body Dressing (QC): 6 On/Off Footwear (QC): 6 1=Demonstrate adherence to instructed precautions during ADL tasks. 2=Patient will verbalize/demonstrate understanding of assistive devices/modifications for ADL. 3=Patient will improve strength/tolerance for activity to enable patient to perform ADL's. OT Education/Plan Problem List/Assessment Assessment: Decreased Activ Tolerance, Decreased UE Strength, Impaired Bed Mobility, Impaired I ADL's, Impaired Self-Care Skills Discharge Recommendations Plan/Recommendations: Continue POC Treatment Plan/Plan of Care Patient would benefit from OT for education, treatment and training to promote independence in ADL's, mobility, safety and/or upper extremity function for ADL's. Plan of Care: ADL Retraining, Functional Mobility, UE Funct Exercise/Act Treatment Duration: Mar 01, 2020 Frequency: 5 times per week Estimated Hrs Per Day: .25 hour per day Rehab Potential: Fair Time/GCodes Start Time: 09:40 Stop Time: 09:51 Total Time Billed (hr/min): 11 Billed Treatment Time 1, EX JOSELIN SEO OT Feb 19, 2020 10:05
--- NOTE | 2020-02-19 11:14 | Physical Therapy Daily Note ---
PT Daily Note-Current Subjective Patient in bed pre tx, agrees to PT, says no when asked if he has pain. Appearance Patient in bed post tx with nurse call, phone, tray, all needs met. Mental Status Patient Orientation: Person, Unable to Assess Attachments: Oxygen, Wilson Catheter, IV Transfers SCALE: Activities may be completed with or without assistive devices. 1-Ahaygsvgji-bwexupl completes the activity by him/herself with no assistance from a helper. 5-Set-up or Clean-up Assistance-helper sets up or cleans up; patient completes activity. [place] assists only prior to or following the activity. 4-Supervision or Touching Assistance-helper provides verbal cues and/or touching/steadying and/or contact guard assistance as patient completes activity. Assistance may be provided throughout the activity or intermittently. 3-Partial/Moderate Assistance-helper does LESS THAN HALF the effort. [place] lifts, holds or supports trunk or limbs, but provides less than half the effort. 2-Substantial/Maximal Assistance-helper does MORE THAN HALF the effort. [place] lifts or holds trunk or limbs and provides more than half the effort. 5-Zzvwqycjz-jbbamd does ALL the effort. Patient does none of the effort to complete the activity. Or, the assistance of 2 or more helpers is required for the patient to complete the activity. If activity was not attempted, code reason: 7-Patient Refused. 9-Not Applicable-not attempted and the patient did not perform the activity before the current illness, exacerbation or injury. 10-Not Attempted due to Environmental Limitations-(lack of equipment, weather restraints, etc.). 88-Not Attempted due to Medical Conditions or Safety Concerns. Roll Left & Right (QC): 4 Sit to Lying (QC): 3 Lying to Sitting/Side of Bed(Q: 3 Sit to Stand (QC): 3 Patient supine <-> sit with mod assist, sit to stand with min assist. Patient was able to stand and september x15, sit, stand again and take a few sidesteps toward the head of the bed, september again x15, and sit and then lay down. Patient is just slightly retropulsive when standing, needs min assist for balance. Weight Bearing Right Lower Extremity: Right Weight Bearing/Tolerated Left Lower Extremity: Left Weight Bearing/Tolerated Treatments bed mobility, standing, LE exercise Assessment Current Status: Fair Progress improving strength and mobility, O2 sat goes down to mid 80's with activity but comes back to low 90's quickly with rest. PT Group Home Goals Group Home Goals PT Correctional Captain Goals Time Frame: Feb 21, 2020 Roll Left & Right (QC): 3 Sit to Lying (QC): 3 Lying-Sitting on Side/Bed(QC): 3 Sit to Stand (QC): 3 Chair/Cbj-ov-Feusi Xfer(QC): 3 PT Plan Problem List Problem List: Activity Tolerance, Functional Strength, Safety, Balance, Gait, Transfer, Bed Mobility, ROM Treatment/Plan Treatment Plan: Continue Plan of Care Treatment Plan: Bed Mobility, Education, Functional Activity Berta, Functional Strength, Gait, Safety, Therapeutic Exercise, Transfers Treatment Duration: Feb 21, 2020 Frequency: 6 times per week Estimated Hrs Per Day: .25 hour per day Patient and/or Family Agrees t: Yes Safety Risks/Education Patient Education: Transfer Techniques, Correct Positioning, Safety Issues Teaching Recipient: Patient Teaching Methods: Demonstration, Discussion Response to Teaching: Reinforcement Needed Time/GCodes Time In: 1050 Time Out: 1103 Total Billed Treatment Time: 13 Total Billed Treatment 1 visit FA ALEXANDRIA SOLITARIO PT Feb 19, 2020 11:14
--- NOTE | 2020-02-19 14:48 | Cardiology Progress Note ---
Cardiology SOAP Progress Note Subjective: No acute cardiac complaints. Objective: I&O/Vital Signs 02/19/20 02/19/20 02/19/20 02/19/20 03:00 03:11 03:23 03:28 Temp 36.6 Pulse 63 61 Resp 22 B/P (MAP) 120/80 (93) 120/80 Pulse Ox 96 97 O2 Delivery Nasal Cannula Nasal Cannula Nasal Cannula O2 Flow Rate 1.50 1.00 1.00 02/19/20 02/19/20 02/19/20 02/19/20 03:50 04:00 05:00 06:00 Pulse 58 61 62 Resp 24 23 22 B/P (MAP) 132/83 (99) 129/80 (96) 123/77 (92) Pulse Ox 98 97 97 O2 Delivery Nasal Cannula Nasal Cannula Nasal Cannula Nasal Cannula O2 Flow Rate 1.00 1.00 1.00 1.00 02/19/20 02/19/20 02/19/20 02/19/20 06:08 06:13 06:33 07:00 Pulse 70 Pulse Ox 95 96 O2 Delivery Room Air Room Air Nasal Cannula O2 Flow Rate 0.50 02/19/20 02/19/20 02/19/20 02/19/20 07:00 07:07 08:00 08:00 Pulse 63 61 B/P (MAP) 133/81 (98) 133/81 (98) Pulse Ox 94 97 90 O2 Delivery Room Air Nasal Cannula Room Air Nasal Cannula O2 Flow Rate 1.00 2.00 02/19/20 02/19/20 02/19/20 02/19/20 09:00 10:00 11:00 11:07 Pulse 84 62 76 Resp 29 B/P (MAP) 124/86 (99) 127/83 (98) 148/85 (106) Pulse Ox 95 99 97 O2 Delivery Room Air Nasal Cannula Nasal Cannula Nasal Cannula O2 Flow Rate 2.00 2.00 2.00 02/19/20 02/19/20 02/19/20 02/19/20 12:00 12:58 13:00 14:00 Pulse 61 65 70 99 B/P (MAP) 139/95 (110) 136/88 (104) 132/83 (99) Pulse Ox 96 99 100 O2 Delivery Nasal Cannula Nasal Cannula Nasal Cannula O2 Flow Rate 2.00 2.00 2.00 02/19/20 14:25 Pulse Ox 100 O2 Delivery Nasal Cannula O2 Flow Rate 2.00 02/19/20 00:00 Intake Total 1204 ml Output Total 1450 ml Balance -246 ml Constitutional: appears stated age, AAO x 3; No apparent distress; well- developed, well-nourished Respiratory: chest is bilaterally symmetric, lungs clear to auscultation Cardiovascular: regular rate-rhythm, extra beats, S1 and S2 Gastrointestional: soft, audible bowel sounds; No spleenomegaly Extremities: normal range of motion, non-tender, normal inspection; No clubbing, No cyanosis; no lower extremity edema bilateral; No significant edema Neurologic/Psychiatric: no motor/sensory deficits, alert, oriented x 3, depressed affect, power is 5/5 both on sides Skin: normal color, warm/dry; No rash, No ulcerations Results/Procedures: Labs Laboratory Tests 02/19/20 03:25: White Blood Count 10.8, Red Blood Count 3.50L, Hemoglobin 10.5L, Hematocrit 33L, Mean Corpuscular Volume 93, Mean Corpuscular Hemoglobin 30, Mean Corpuscular Hemoglobin Concent 32, Red Cell Distribution Width 14.0, Platelet Count 272, Mean Platelet Volume 10.2, Neutrophils (%) (Auto) 75, Lymphocytes (%) (Auto) 13, Monocytes (%) (Auto) 9, Eosinophils (%) (Auto) 3, Basophils (%) (Auto) 0, Neutrophils # (Auto) 8.1H, Lymphocytes # (Auto) 1.4, Monocytes # (Auto) 1.0, Eosinophils # (Auto) 0.3, Basophils # (Auto) 0.0, Sodium Level 140, Potassium Level 3.6, Chloride Level 106, Carbon Dioxide Level 26, Anion Gap 8, Blood Urea Nitrogen 21H, Creatinine 0.71, Estimat Glomerular Filtration Rate > 60, BUN/Creatinine Ratio 30, Glucose Level 105, Calcium Level 8.1L, Phosphorus Level 2.8, Magnesium Level 2.1, Procalcitonin 0.03 Microbiology 02/14/20 Blood Culture - Final, Complete No growth 02/14/20 MRSA Screen - Final, Complete MRSA not isolated 01/25/20 Urine Culture - Final, Complete NO GROWTH A/P: Assessment/Dx: Acute respiratory failure due to active COVID-19 infection, Frequent PVCs, Atrial fibrillation with rapid ventricular rate Plan: Frequent PVC: Continue amiodarone and beta blockers. Rapid atrial fibrillation, and now in sinus rhythm. Change amiodarone to by mouth. Change lidocaine to mexiletine. Continue metoprolol 50 mg 3 times a day. Acute hypoxemic respiratory failure due to COVID-19 with acute respiratory distress syndrome and secondary pneumonia, deferred to the primary team. Thank you for your consultation. Please call me if you have any questions. Peter Bello MD, FACP, FACC, FSCAI, FHRS, CCDS Interventional Cardiology Cardiac Electrophysiology Vascular Medicine and Endovascular Interventions Demario BELLO MD Feb 19, 2020 14:48
--- NOTE | 2020-02-19 14:55 | NUR ---
CM/SS follow per chart review due to covid precautions. CM/SS following physician's plan of care.
[2020-02-19] MEDS: dilTIAZem DRIP PRE-MIX 125 ML IV SCH (15:30)
--- NOTE | 2020-02-19 16:00 | NUR ---
DUE TO STAFFING, THIS RN RESUMED CARE OF PATIENT AT THIS TIME. NO NEEDS VOICED. PT RESTING COMFORTABLY IN ROOM.
[2020-02-19] MEDS: AMIODARONE 200 MG (CORDARONE) TAB PO SCH (20:09)
[2020-02-19] MEDS: MEXILETINE 200 MG (MEXITIL) CAPSULE PO SCH (20:09)
[2020-02-20] VITALS (12 sets, daily range): BP systolic 100–171; BP diastolic 62–103
[2020-02-20] MEDS: ESMOLOL DRIP PREMIX 250 ML IV SCH (00:46)
[2020-02-20 01:45] LABS: BASOPHILS % (AUTO) 0 % (0-10); EOSINOPHILS # (AUTO) 0.4 10^3/uL (0.0-0.3); EOSINOPHILS % (AUTO) 3 % (0-10); HEMATOCRIT 34 % (40-54); LYMPHOCYTES # (AUTO) 1.9 X 10^3 (1.0-4.0); LYMPHOCYTES % (AUTO) 15 % (12-44); MEAN CORPUSCULAR HEMOGLOBIN 30 PG (25-34); MEAN CORPUSCULAR HGB CONC 32 G/DL (32-36); MEAN CORPUSCULAR VOLUME 92 FL (80-99); MONOCYTES % (AUTO) 8 % (0-12); NEUTROPHILS # (AUTO) 9.3 X 10^3 (1.8-7.8); NEUTROPHILS % (AUTO) 74 % (42-75); PLATELET COUNT 264 10^3/uL (130-400); RED CELL DISTRIBUTION WIDTH 14.3 % (10.0-14.5); WHITE BLOOD COUNT 12.6 10^3/uL (4.3-11.0)
[2020-02-20 01:55] LABS: CHLORIDE 105 MMOL/L (98-107); POTASSIUM 3.9 MMOL/L (3.6-5.0); SODIUM 139 MMOL/L (135-145)
[2020-02-20 01:57] LABS: CALCIUM 8.3 MG/DL (8.5-10.1); GLUCOSE 105 MG/DL (70-105)
[2020-02-20 01:59] LABS: CARBON DIOXIDE 25 MMOL/L (21-32)
[2020-02-20 02:01] LABS: CREATININE SERUM 0.73 MG/DL (0.60-1.30); GFR ESTIMATED > 60; PHOSPHORUS 2.5 MG/DL (2.3-4.7)
[2020-02-20 02:02] LABS: BUN/CREATININE RATIO 26
[2020-02-20 02:03] LABS: MAGNESIUM 2.1 MG/DL (1.6-2.4)
[2020-02-20] MEDS: ALBUTEROL/IPRATROP (COMBIVENT RESPIMAT) 4 GM INHALER IH SCH ×4 (02:03→18:41)
--- NOTE | 2020-02-20 03:56 | NUR ---
PT UP TO BSC WITH X2 ASSIST TO HAVE BM. PT WAS PREVIOUSLY ON RA BUT UPON EXERTION PT O2 SATURATION QUICKLY DROPPED INTO 70's% ON RA. OXYGEN PLACED AT 6 LITERS WHILE ON COMMODE. ONCE PT BACK IN BED PTS OXYGEN DECREASED TO 2L NC WITH SATURATION 93%.
[2020-02-20] MEDS: MAGNESIUM 1 GM/100 ML IVPB 100 ML IV SCH (05:28)
[2020-02-20] MEDS: POTASSIUM CL 10MEQ/50ML IVPB 50 ML IV SCH (05:28)
[2020-02-20] MEDS: KCL 20 MEQ TAB (K-DUR) PO SCH (05:28)
[2020-02-20] MEDS ORDERED: POTASSIUM PHOSPHATE INJ 30 MM in NS (IVPB) 250 ML IV NR (06:30)
[2020-02-20] MEDS ORDERED: AMIODARONE 200 MG (CORDARONE) TAB PO SCH (06:30)
--- NOTE | 2020-02-20 06:33 | Pulmonary Progress Note ---
Subjective Time Seen by a Provider: 06:28 Subjective/Events-last exam Pt is doing better. Sepsis Event Evaluation Height, Weight, BMI Height: '" Weight: lbs. oz. kg; 30.00 BMI Method: Exam Exam Vital Signs Date Time Temp Pulse Resp B/P (MAP) Pulse Ox O2 Delivery O2 Flow Rate FiO2 02/20/20 06:00 66 24 132/87 (102) 98 Nasal Cannula 2.00 02/20/20 05:00 71 17 135/85 (102) 96 Nasal Cannula 2.00 02/20/20 04:07 Room Air 02/20/20 04:00 67 27 133/103 (113) 95 Nasal Cannula 2.00 02/20/20 03:47 35.9 Nasal Cannula 2.00 02/20/20 03:00 62 17 134/81 (98) 94 Room Air 02/20/20 02:03 94 Nasal Cannula 21 02/20/20 02:00 66 22 171/91 (117) 91 Room Air 02/20/20 01:30 36.7 Room Air 02/20/20 01:00 64 19 137/83 (101) 99 Room Air 02/20/20 01:00 64 02/20/20 00:00 71 21 132/81 (98) 93 Room Air 02/20/20 00:00 Room Air 02/19/20 23:00 69 25 131/79 (96) 99 Room Air 02/19/20 22:00 70 17 120/74 (89) 91 Room Air 02/19/20 21:00 69 139/76 (97) 93 Room Air 02/19/20 20:41 93 Nasal Cannula 21.00 02/19/20 20:30 70 142/74 (96) 95 Room Air 02/19/20 20:00 70 128/77 (94) 96 Nasal Cannula 2.00 02/19/20 20:00 Room Air 02/19/20 20:00 36.2 02/19/20 19:00 81 02/19/20 19:00 81 27 153/98 (116) 99 Nasal Cannula 2.00 02/19/20 18:00 71 24 119/66 (83) 99 Nasal Cannula 2.00 02/19/20 17:00 69 22 133/93 (106) 96 Nasal Cannula 2.00 02/19/20 16:00 Nasal Cannula 1.00 02/19/20 16:00 61 23 128/86 (100) 99 Nasal Cannula 2.00 02/19/20 15:00 68 19 149/95 (113) 97 Nasal Cannula 2.00 02/19/20 14:25 100 Nasal Cannula 2.00 02/19/20 14:00 99 132/83 (99) 100 Nasal Cannula 2.00 02/19/20 13:00 70 136/88 (104) 99 Nasal Cannula 2.00 02/19/20 12:58 65 02/19/20 12:00 61 139/95 (110) 96 Nasal Cannula 2.00 02/19/20 11:07 Nasal Cannula 2.00 02/19/20 11:00 76 29 148/85 (106) 97 Nasal Cannula 2.00 02/19/20 10:00 62 127/83 (98) 99 Nasal Cannula 2.00 02/19/20 09:00 84 124/86 (99) 95 Room Air 02/19/20 08:00 Nasal Cannula 2.00 02/19/20 08:00 61 133/81 (98) 90 Room Air 02/19/20 07:07 97 Nasal Cannula 1.00 02/19/20 07:00 63 133/81 (98) 94 Room Air 02/19/20 07:00 70 02/19/20 06:33 96 Nasal Cannula 0.50 I & O 02/20/20 07:00 Intake Total 1495 ml Output Total 1365 ml Balance 130 ml Height & Weight Height: '" Weight: lbs. oz. kg; 30.00 BMI Method: General Appearance: No Apparent Distress HEENT: PERRL/EOMI, Pharynx Normal Respiratory: Lungs Clear, No Respiratory Distress Cardiovascular: Regular Rate, Rhythm, No Murmur Capillary Refill: Less Than 3 Seconds Gastrointestinal: normal bowel sounds, soft Extremity: No Calf Tenderness, No Pedal Edema Neurologic/Psychiatric: Alert, Depressed Affect Skin: Normal Color, Warm/Dry Results Lab Laboratory Tests 02/19/20 03:25 02/20/20 01:37 Assessment/Plan Assessment/Plan Acute respiratory failure secondary to COVID -- Now much improved -Extubated 02/02 -Now on only 1 liter of oxygen NC - decadron 4mg daily -s/p Remdesivir tx PNA with Enterobactor -Continue Merrem Debility -PT/OT Afib - Now controlled -Cardiology following hypokalemia -replace HTN -Lopressor -Hydralazine PRN Transfer to 4th floor with tele. I discussed with pt's family regarding pt's current improved status. PT is upset because he wants to leave however he is currently very weak. Family understands he needs more PT/OT prior to discharge. Once pt transfers to 4th floor I am going to sign off. Please call with any questions or concerns. I did notify Dr. Bae of transfer to 4th floor. STEFANI FORDE DO Feb 20, 2020 06:33
[2020-02-20] MEDS: MEXILETINE 200 MG (MEXITIL) CAPSULE PO SCH ×2 (09:05→21:12)
[2020-02-20] MEDS: AMIODARONE 200 MG (CORDARONE) TAB PO SCH ×2 (09:05→21:12)
[2020-02-20] MEDS: PANTOPRAZOLE 40 MG (PROTONIX) TAB PO SCH (09:05)
[2020-02-20] MEDS: APIXABAN 5 MG (ELIQUIS) TABLET PO SCH ×2 (09:05→21:12)
[2020-02-20] MEDS: meTOprolol TARTRATE 50 MG (LOPRESSOR) TAB PO SCH ×3 (09:05→21:12)
--- NOTE | 2020-02-20 10:30 | NUR ---
Patient arrived to room 431 via bed at this time. Report received from JAY Bailey. I agree with previous RN's assessment and will assume care at this time. Call light within reach, patient resting quietly in bed.
--- NOTE | 2020-02-20 10:54 | NUR ---
"RD ASSESSMENT PMHx: unknown PMH PT INTERACTION: Note pt is still in COVID isolation. Note all diet information for nutrition follow-up is per chart review. Note avg PO intake 25-50% x3d. Note last BM was 02/19, and pt not currently on bowel regimen. ABNORMAL NUTRITION-RELATED LAB VALUES LOW: Ca 8.3 HIGH: BUN 19 Est. kcal needs: 1825 kcal | 20 kcal/kg Est. Pro needs: 73 g Pro | 0.8 g Pro/kg PES STATEMENT: Inadequate oral intake (NI-2.1) related to loss of appetite as evidenced by chart review | avg PO intake 25-50% x3d INTERVENTION: Continue with current diet order of Regular diet. Continue with current supplementation order of Ensure Enlive with meals TID. Provides 350 kcal and 13 g Pro per serving. Will continue to follow and reassess as pt needs, intake, and status change. MONITOR/EVALUATE: PO Intake; Plan of Care; Hydration Status; Weight Status; Lab Values Emerson Dunaway, MS, RD, LD"
[2020-02-20] MEDS ORDERED: LORazepam INJ 2 MG/ML (ATIVAN) VIAL IM/IV PRN (11:45)
--- NOTE | 2020-02-20 11:49 | Physical Therapy Daily Note ---
PT Daily Note-Current Subjective Patient in bed pre tx, agrees to PT, has no complaints of pain. Appearance Patient in recliner post tx with nurse call, phone, tray, legs elevated, nurse notified. Mental Status Patient Orientation: Person, Unable to Assess Attachments: Wilson Catheter Transfers SCALE: Activities may be completed with or without assistive devices. 3-Svupaeuawa-ebmmslr completes the activity by him/herself with no assistance from a helper. 5-Set-up or Clean-up Assistance-helper sets up or cleans up; patient completes activity. [place] assists only prior to or following the activity. 4-Supervision or Touching Assistance-helper provides verbal cues and/or touching/steadying and/or contact guard assistance as patient completes activity. Assistance may be provided throughout the activity or intermittently. 3-Partial/Moderate Assistance-helper does LESS THAN HALF the effort. [place] lifts, holds or supports trunk or limbs, but provides less than half the effort. 2-Substantial/Maximal Assistance-helper does MORE THAN HALF the effort. [place] lifts or holds trunk or limbs and provides more than half the effort. 6-Cugvosvur-yynbxm does ALL the effort. Patient does none of the effort to complete the activity. Or, the assistance of 2 or more helpers is required for the patient to complete the activity. If activity was not attempted, code reason: 7-Patient Refused. 9-Not Applicable-not attempted and the patient did not perform the activity before the current illness, exacerbation or injury. 10-Not Attempted due to Environmental Limitations-(lack of equipment, weather restraints, etc.). 88-Not Attempted due to Medical Conditions or Safety Concerns. Roll Left & Right (QC): 6 Lying to Sitting/Side of Bed(Q: 3 Sit to Stand (QC): 4 Chair/Hox-po-Hwhwv Xfer(QC): 4 Weight Bearing Right Lower Extremity: Right Weight Bearing/Tolerated Left Lower Extremity: Left Weight Bearing/Tolerated Gait Training Distance: 5' Gait Persons Needed: 1 Gait Assistive Device: FWW cues for direction are difficult due to language barrier, patient SOB with activity, very labored breathing after sitting in recliner Exercises Seated Therapy Exercises: Ankle pumps Seated Reps: 20 no more LE exercises performed due to labored breathing with just AP, nurse notified and she would like to put him on 1L of O2, pulse oximeter is not available, put him on O2 Treatments bed mobility, transfers, ambulation, LE exercise Assessment Current Status: Poor Progress slow improvement but very poor endurance, very labored breathing and extreme fatigue with little activity 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 Crew 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 Senior Care Goals PT Senior Care Goals Time Frame: Feb 21, 2020 Roll Left & Right (QC): 3 Sit to Lying (QC): 3 Lying-Sitting on Side/Bed(QC): 3 Sit to Stand (QC): 3 Chair/Opu-ui-Uqaux Xfer(QC): 3 PT Plan Problem List Problem List: Activity Tolerance, Functional Strength, Safety, Balance, Gait, Transfer, Bed Mobility, ROM Treatment/Plan Treatment Plan: Continue Plan of Care Treatment Plan: Bed Mobility, Education, Functional Activity Berta, Functional Strength, Gait, Safety, Therapeutic Exercise, Transfers Treatment Duration: Feb 21, 2020 Frequency: 6 times per week Estimated Hrs Per Day: .25 hour per day Patient and/or Family Agrees t: Yes Safety Risks/Education Patient Education: Gait Training, Transfer Techniques, Correct Positioning, Safety Issues Teaching Recipient: Patient Teaching Methods: Demonstration, Discussion Response to Teaching: Reinforcement Needed Time/GCodes Time In: 1111 Time Out: 1132 Total Billed Treatment Time: 19 Total Billed Treatment 1 visit FA ' ALEXANDRIA NAQVI PT Feb 20, 2020 11:49
--- NOTE | 2020-02-20 11:51 | Occupational Ther Daily Note ---
OT Current Status-Daily Note Subjective Pt laying in bed at start of session, agreeable to therapy. He denied pain. Although French is not pt's primary language, pt and OT communicated through simple French & [place] phrases and gestures. Mental Status/Objective Attachments: Wilson Catheter, IV, Oxygen (1L post tx), Telemetry ADL-Treatment Therapy Code Descriptions/Definitions Functional Lewis Measure: 0=Not Assessed/NA 4=Minimal Assistance 1=Total Assistance 5=Supervision or Setup 2=Maximal Assistance 6=Modified Lewis 3=Moderate Assistance 7=Complete IndependenceSCALE: Activities may be completed with or without assistive devices. 1-Donlchteum-vprhjfq completes the activity by him/herself with no assistance from a helper. 5-Set-up or Clean-up Assistance-helper sets up or cleans up; patient completes activity. [place] assists only prior to or following the activity. 4-Supervision or Touching Assistance-helper provides verbal cues and/or to uching/steadying and/or contact guard assistance as patient completes activity. Assistance may be provided throughout the activity or intermittently. 3-Partial/Moderate Assistance-helper does LESS THAN HALF the effort. [place] lifts, holds or supports trunk or limbs, but provides less than half the effort. 2-Substantial/Maximal Assistance-helper does MORE THAN HALF the effort. [place] lifts or holds trunk or limbs and provides more than half the effort. 8-Hnxwzbmwk-ixobmo does ALL the effort. Patient does none of the effort to complete the activity. Or, the assistance of 2 or more helpers is required for the patient to complete the activity. If activity was not attempted, code reason: 7-Patient Refused. 9-Not Applicable-not attempted and the patient did not perform the activity before the current illness, exacerbation or injury. 10-Not Attempted due to Environmental Limitations-(lack of equipment, weather restraints, etc.). 88-Not Attempted due to Medical Conditions or Safety Concerns. Oral Hygiene (QC): 5 (OT handed pt water cup, he is able to bring it to his mouth and take a drink) On/Off Footwear: 7 (OT handed pt socks, instructing him to don, pt shook his head no, refused to put on socks.) Other Treatment Pt laying in bed, on room air with IV/Telemetry/catheter attached. Pt agreeable to transferring to recliner. Pt transferred supine to sit EOB with min A. OT handed pt socks, instructing him to put them on his feet, he shook his head no, refusing to don slipper socks. OT then donned socks for pt, he was able to move his foot forward off of the ground in order for OT to don socks. Pt then stood from EOB and transferred to the recliner with CGA and assistance managing IV pole/lines. Pt had labored breathing once at recliner, able to recover breath after a couple of minutes. Pt attempted to complete LE exercises, but again had labored breathing. Nurse notified and instructed 1L O2 NC be placed on pt. Pulse Oximeter not available during tx, O2 placed on pt. OT planned for pt to complete UE exercises but terminated tx due to labored breathing with LE exercise. Post OT tx, pt seated in recliner, legs elevated, call light in reach and all needs met. 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 2=Patient will verbalize/demonstrate understanding of assistive devices/modifications for ADL. 3=Patient will improve strength/tolerance for activity to enable patient to perform ADL's. OT Education/Plan Problem List/Assessment Assessment: Decreased Activ Tolerance, Decreased UE Strength, Impaired Funct Balance, Impaired I ADL's, Impaired Self-Care Skills Discharge Recommendations Plan/Recommendations: Continue POC Treatment Plan/Plan of Care Patient would benefit from OT for education, treatment and training to promote independence in ADL's, mobility, safety and/or upper extremity function for ADL's. Plan of Care: ADL Retraining, Functional Mobility, UE Funct Exercise/Act Treatment Duration: Mar 01, 2020 Frequency: 5 times per week Estimated Hrs Per Day: .25 hour per day Rehab Potential: Fair Time/GCodes Start Time: 11:11 Stop Time: 11:32 Total Time Billed (hr/min): 21 Billed Treatment Time 1, JOSELIN MURPHY OT Feb 20, 2020 11:51
--- NOTE | 2020-02-20 16:03 | NUR ---
MEET/SS following. CM/SS spoke with October from [facility] to review chart on patient's therapy process. They will look at patient for possible acceptance tomorrow. CM/SS discussed this with the patients physician. CM/SS asked the patient's primary care nurse to check if the patient has insurance through a provider. He is employed but reported to the nurse that he did not have insurance. CM/SS will continue to follow for discharge planning.
[2020-02-21] VITALS (7 sets, daily range): BP systolic 108–120; BP diastolic 69–77
[2020-02-21] MEDS: ALBUTEROL/IPRATROP (COMBIVENT RESPIMAT) 4 GM INHALER IH SCH ×3 (02:20→13:39)
[2020-02-21] MEDS: AMIODARONE 200 MG (CORDARONE) TAB PO SCH ×2 (08:31→20:22)
[2020-02-21] MEDS: meTOprolol TARTRATE 50 MG (LOPRESSOR) TAB PO SCH ×3 (08:31→20:22)
[2020-02-21] MEDS: MEXILETINE 200 MG (MEXITIL) CAPSULE PO SCH ×2 (08:32→20:22)
[2020-02-21] MEDS: PANTOPRAZOLE 40 MG (PROTONIX) TAB PO SCH (08:32)
[2020-02-21] MEDS: APIXABAN 5 MG (ELIQUIS) TABLET PO SCH ×2 (08:32→20:22)
--- NOTE | 2020-02-21 09:19 | Occupational Ther Daily Note ---
OT Current Status-Daily Note Subjective Pt seen in bed, OT introduces self. Pt denies pain when asked. Pt states he's doing, "Good." Pt agrees to OT tx session. Mental Status/Objective Patient Orientation: Normal For Age Attachments: Wilson Catheter, Oxygen (1L) ADL-Treatment Therapy Code Descriptions/Definitions Functional [place] Measure: 0=Not Assessed/NA 4=Minimal Assistance 1=Total Assistance 5=Supervision or Setup 2=Maximal Assistance 6=Modified [place] 3=Moderate Assistance 7=Complete IndependenceSCALE: Activities may be completed with or without assistive devices. 8-Oczvniuqip-udrlqdg completes the activity by him/herself with no assistance from a helper. 5-Set-up or Clean-up Assistance-helper sets up or cleans up; patient completes activity. [place] assists only prior to or following the activity. 4-Supervision or Touching Assistance-helper provides verbal cues and/or touching/steadying and/or contact guard assistance as patient completes activity. Assistance may be provided throughout the activity or intermittently. 3-Partial/Moderate Assistance-helper does LESS THAN HALF the effort. [place] lifts, holds or supports trunk or limbs, but provides less than half the effort. 2-Substantial/Maximal Assistance-helper does MORE THAN HALF the effort. [place] lifts or holds trunk or limbs and provides more than half the effort. 3-Dzhhldvqu-gnuzdr does ALL the effort. Patient does none of the effort to complete the activity. Or, the assistance of 2 or more helpers is required for the patient to complete the activity. If activity was not attempted, code reason: 7-Patient Refused. 9-Not Applicable-not attempted and the patient did not perform the activity before the current illness, exacerbation or injury. 10-Not Attempted due to Environmental Limitations-(lack of equipment, weather restraints, etc.). 88-Not Attempted due to Medical Conditions or Safety Concerns. Eating (QC): 6 (Pt brings food/ water to mouth and drinks.) On/Off Footwear: 3 (Pt dons R sock EOB, denies L sock. Pt's socks doffed with max A.) Toileting Hygiene (QC): 4 (CGA in stance. ) Toilet Transfer (QC): 4 (CGA with use of 4WW for BM on toilet.) Other Treatment Pt seen in bed. Reaches EOB with encouragement and SBA. Pt able to don 1/2 socks EOB with CGA while bending. No SOB during bending tasks. Pt requests restroom for BM. Pt sit to stand CGA with use of 4WW, pt ambulates with CGA to toilet. Pt requires gestural cues for use of grab bar to sit with control. Pt sits with CGA. Pt completes BM, cleans self CGA. pt stands from toilet with min A, ambulates back to bed (requesting bed over recliner), no SOB noted this date. Pt returns to supine with HOB elevated with min A for LB movement. Pt denies needs, states done with food/ food cleared from table. All needs met, call light in reach. Education OT Patient Education: Correct positioning, Progress toward Goal/Update tx plan, Purpose of tx/functional activities, Safety issues, Transfer techniques Teaching Recipient: Patient Teaching Methods: Demonstration, Discussion Response to Teaching: Verbalize Understanding, Return Demonstration, Reinforcement Needed OT Chcf Goals Chcf Goals Time Frame: Mar 01, 2020 Eating (QC): 6 Oral Hygiene (QC): 6 Toileting Hygiene (QC): 6 Shower/Bathe Self (QC): 6 Upper Body Dressing (QC): 6 Lower Body Dressing (QC): 6 On/Off Footwear (QC): 6 1=Demonstrate adherence to instructed precautions during ADL tasks. 2=Patient will verbalize/demonstrate understanding of assistive devices/modifications for ADL. 3=Patient will improve strength/tolerance for activity to enable patient to perform ADL's. OT Education/Plan Problem List/Assessment Assessment: Decreased Activ Tolerance, Decreased UE Strength, Dependent Transfers, Impaired Bed Mobility, Impaired Funct Balance, Impaired I ADL's, Imp aired Self-Care Skills Discharge Recommendations Plan/Recommendations: Continue POC Therapy Discharge Recommendati: Post Acute OT Treatment Plan/Plan of Care Treatment,Training & Education: Yes Patient would benefit from OT for education, treatment and training to promote independence in ADL's, mobility, safety and/or upper extremity function for ADL's. Plan of Care: ADL Retraining, Functional Mobility, UE Funct Exercise/Act Treatment Duration: Mar 01, 2020 Frequency: 5 times per week Estimated Hrs Per Day: .25 hour per day Rehab Potential: Fair Time/GCodes Start Time: 08:50 Stop Time: 09:05 Total Time Billed (hr/min): 15 Billed Treatment Time 1, ADL (15) SEEMA HINSON OTR Feb 21, 2020 09:19
--- NOTE | 2020-02-21 09:24 | Physical Therapy Daily Note ---
PT Daily Note-Current Subjective Patient in bed pre tx, agrees to PT, has no complaints of pain, proper PPE donned. Appearance Patient in bed post tx with nurse call, phone, tray, all needs met, patient did not want to sit in recliner. Mental Status Patient Orientation: Person, Unable to Assess Attachments: Oxygen, Wilson Catheter Transfers SCALE: Activities may be completed with or without assistive devices. 3-Jceyqpxskd-przjxfx completes the activity by him/herself with no assistance from a helper. 5-Set-up or Clean-up Assistance-helper sets up or cleans up; patient completes activity. [place] assists only prior to or following the activity. 4-Supervision or Touching Assistance-helper provides verbal cues and/or touching/steadying and/or contact guard assistance as patient completes activity. Assistance may be provided throughout the activity or intermittently. 3-Partial/Moderate Assistance-helper does LESS THAN HALF the effort. [place] lifts, holds or supports trunk or limbs, but provides less than half the effort. 2-Substantial/Maximal Assistance-helper does MORE THAN HALF the effort. [place] lifts or holds trunk or limbs and provides more than half the effort. 6-Jeexbgqks-hydlij does ALL the effort. Patient does none of the effort to complete the activity. Or, the assistance of 2 or more helpers is required for the patient to complete the activity. If activity was not attempted, code reason: 7-Patient Refused. 9-Not Applicable-not attempted and the patient did not perform the activity before the current illness, exacerbation or injury. 10-Not Attempted due to Environmental Limitations-(lack of equipment, weather restraints, etc.). 88-Not Attempted due to Medical Conditions or Safety Concerns. Roll Left & Right (QC): 4 Sit to Lying (QC): 3 Lying to Sitting/Side of Bed(Q: 4 Sit to Stand (QC): 4 Chair/Jyv-vx-Senlu Xfer(QC): 4 Toilet Transfer (QC): 3 Min assist to get leg in for sit to supine, min assist to stand from toilet. Patient sat on the edge of the bed and said he needed to use the restroom, ambulated 10' to restroom and sat on toilet, had a BM and was able to wipe himself, stood with min assist and ambulated back to the bed CGA, cues for direction and safety. Weight Bearing Right Lower Extremity: Right Weight Bearing/Tolerated Left Lower Extremity: Left Weight Bearing/Tolerated Gait Training Distance: 10'x2 Walk 10 feet (QC): 4 Gait Assistive Device: FWW CGA, a little shaky and unsteady but no LOB Treatments toileting, ambulation, bed mobility and transfers Assessment Current Status: Fair Progress not nearly as SOB as yesterday, has nasal canula with 1L of O2 PT Inventory Checker Goals Inventory Checker Goals PT Inventory Checker Goals Time Frame: Feb 21, 2020 Roll Left & Right (QC): 3 Sit to Lying (QC): 3 Lying-Sitting on Side/Bed(QC): 3 Sit to Stand (QC): 3 Chair/Clk-ig-Oehtr Xfer(QC): 3 PT Plan Problem List Problem List: Activity Tolerance, Functional Strength, Safety, Balance, Gait, Transfer, Bed Mobility, ROM Treatment/Plan Treatment Plan: Continue Plan of Care Treatment Plan: Bed Mobility, Education, Functional Activity Berta, Functional Strength, Gait, Safety, Therapeutic Exercise, Transfers Treatment Duration: Feb 21, 2020 Frequency: 6 times per week Estimated Hrs Per Day: .25 hour per day Patient and/or Family Agrees t: Yes Safety Risks/Education Patient Education: Gait Training, Transfer Techniques, Correct Positioning, Safety Issues Teaching Recipient: Patient Teaching Methods: Demonstration, Discussion Response to Teaching: Reinforcement Needed Time/GCodes Time In: 0850 Time Out: 09 Total Billed Treatment Time: 15 Total Billed Treatment 1 visit FA 15' ALEXANDRIA NAQVI PT Feb 21, 2020 09:24
[2020-02-21 09:35] LABS: BASOPHILS # (AUTO) 0.1 10^3/uL (0.0-0.1); BASOPHILS % (AUTO) 1 % (0-10); EOSINOPHILS # (AUTO) 0.6 10^3/uL (0.0-0.3); EOSINOPHILS % (AUTO) 5 % (0-10); HEMATOCRIT 35 % (40-54); HEMOGLOBIN 11.4 G/DL (13.3-17.7); LYMPHOCYTES # (AUTO) 1.6 X 10^3 (1.0-4.0); LYMPHOCYTES % (AUTO) 13 % (12-44); MEAN CORPUSCULAR HEMOGLOBIN 30 PG (25-34); MEAN CORPUSCULAR HGB CONC 32 G/DL (32-36); MEAN CORPUSCULAR VOLUME 92 FL (80-99); MEAN PLATELET VOLUME 10.4 FL (7.4-10.4); MONOCYTES # (AUTO) 0.9 X 10^3 (0.0-1.0); MONOCYTES % (AUTO) 7 % (0-12); NEUTROPHILS # (AUTO) 9.1 X 10^3 (1.8-7.8); NEUTROPHILS % (AUTO) 74 % (42-75); PLATELET COUNT 271 10^3/uL (130-400); RED CELL DISTRIBUTION WIDTH 14.5 % (10.0-14.5); WHITE BLOOD COUNT 12.3 10^3/uL (4.3-11.0)
[2020-02-21 09:57] LABS: BUN/CREATININE RATIO 26; CALCIUM 8.4 MG/DL (8.5-10.1); CARBON DIOXIDE 26 MMOL/L (21-32); CHLORIDE 106 MMOL/L (98-107); CREATININE SERUM 0.81 MG/DL (0.60-1.30); GFR ESTIMATED > 60; GLUCOSE 168 MG/DL (70-105); PHOSPHORUS 2.4 MG/DL (2.3-4.7); POTASSIUM 3.6 MMOL/L (3.6-5.0); SODIUM 140 MMOL/L (135-145)
--- NOTE | 2020-02-21 11:17 | NUR ---
Patient meets guidelines to remove isolation for COVID. Notified Claribel Del Valle RN and Libby Barton RN.
--- NOTE | 2020-02-21 15:45 | Progress Note - Hospitalist ---
Subjective HPI/CC On Admission Date Seen by Provider: Feb 21, 2020 Time Seen by Provider: 10:40 Subjective/Events-last exam He denies any fevers or chills. He denies any shortness of breath. He denies any cough. He has been working with physical therapy. He has no complaints or concerns. Objective Exam Vital Signs Vital Signs Date Time Temp Pulse Resp B/P (MAP) Pulse Ox O2 Delivery O2 Flow Rate FiO2 02/21/20 13:00 69 02/21/20 12:04 36.9 20 114/69 (84) 94 Nasal Cannula 2.00 02/21/20 07:25 16 Capillary Refill : Less Than 3 Seconds General Appearance: No Apparent Distress, WD/WN Respiratory: Lungs Clear, Normal Breath Sounds, No Respiratory Distress Cardiovascular: Regular Rate, Rhythm, No Edema, No Murmur Gastrointestinal: Normal Bowel Sounds, Non Tender, Soft Extremity: Normal Inspection, Non Tender, No Pedal Edema Neurologic/Psychiatric: Alert, Normal Mood/Affect; No Disoriented; Motor Weakness Skin: Normal Color, Warm/Dry Results/Procedures Lab Laboratory Tests 02/21/20 09:30 Patient resulted labs reviewed. Imaging: Reviewed Imaging Report Assessment/Plan Assessment and Plan Assess & Plan/Chief Complaint Critical illness myopathy PT/OT Transfer to IRU tomorrow morning Acute hypoxemic respiratory failure COVID-19 Extubated 02/12, now titrated down to 1 L NC Completed course of Merrem Completed Remdesivir course Continue Decadron taper Continue Eliquis Paroxysmal atrial fibrillation Cardiology consulted, appreciate assistance Continue amiodarone and mexiletine ARDS, resolved Endotracheally intubated, resolved Pneumonia, resolved Cardiac arrest, resolved Critical Care Critically Ill Patient Diagnosis/Problems Diagnosis/Problems (1) Respiratory failure Status: Acute Qualifiers: Chronicity: acute Respiratory failure complication: hypoxia Qualified Codes: J96.01 - Acute respiratory failure with hypoxia (2) COVID-19 Status: Acute (3) Atrial fibrillation with RVR Status: Acute (4) ARDS (adult respiratory distress syndrome) Status: Resolved Resolution Date/Time: 02/21/20 @ 15:46 Clinical Quality Measures DVT/VTE Risk/Contraindication: Risk Factor Score Per Nursin RFS Level Per Nursing on Admit: 4+=Very High FRANNIE SMITH MD Feb 21, 2020 15:45
--- NOTE | 2020-02-21 15:58 | NUR ---
CM/SS visited with patient for discharge planning. Plan: Patient will discharge to inpatient rehab until. CM/SS wore a 18 60 Small mask while interacting with patient. CM/SS used the language line to communicate with patient. CM/SS asked the patient if he had insurance. He stated "no, I just have the insurance through the government". CM/SS attempted to clarify. According to the patient he had insurance through his employer [employer]. It is unclear if the patient still is working there. He reported he did not have the card here with him. CM/SS spoke with the patient about inpatient rehab and going down there tomorrow. He verbalized understanding. He is agreeable with the plan but states he does not know if he could do 90 minutes of therapy yet. He did not have any questions at this time. No further needs.
--- NOTE | 2020-02-21 16:56 | NUR ---
IRF Evaluation Determination: Accepted Chart review complete and findings discussed with Dr. Goncalves - patient accepted. Anticipate admission, 02/22/20. Therapy regimen to be determined upon admission as it relates to COVID Intensity Waiver. Thank you for this referral. Addendum: 02/22/20 at 1128 by OCTOBER R ANGI SS 8:34 Contacted patient's employer, [employer] for clarification of insurance coverage. [employer] financial service representative confirms patient does in fact have insurance coverage provided by [facility]. Requested a copy of patient's insurance card. Received. Initiated prior authorization process with [facility]; clinical information submitted. 11:16 [facility] Registration Department notified of above information. Copy of insurance card faxed to Gina Guevara
[2020-02-22] MEDS: ALBUTEROL/IPRATROP (COMBIVENT RESPIMAT) 4 GM INHALER IH SCH ×5 (02:46→20:14)
[2020-02-22 04:30] VITALS: BP 117/74
[2020-02-22 05:23] LABS: BASOPHILS % (AUTO) 0 % (0-10); EOSINOPHILS # (AUTO) 0.3 10^3/uL (0.0-0.3); EOSINOPHILS % (AUTO) 2 % (0-10); HEMATOCRIT 34 % (40-54); HEMOGLOBIN 10.8 G/DL (13.3-17.7); LYMPHOCYTES # (AUTO) 1.7 X 10^3 (1.0-4.0); LYMPHOCYTES % (AUTO) 12 % (12-44); MEAN CORPUSCULAR HEMOGLOBIN 29 PG (25-34); MEAN CORPUSCULAR HGB CONC 32 G/DL (32-36); MEAN CORPUSCULAR VOLUME 93 FL (80-99); MEAN PLATELET VOLUME 10.6 FL (7.4-10.4); MONOCYTES % (AUTO) 7 % (0-12); NEUTROPHILS # (AUTO) 11.6 X 10^3 (1.8-7.8); NEUTROPHILS % (AUTO) 79 % (42-75); PLATELET COUNT 269 10^3/uL (130-400); RED CELL DISTRIBUTION WIDTH 14.9 % (10.0-14.5); WHITE BLOOD COUNT 14.7 10^3/uL (4.3-11.0)
[2020-02-22 05:30] LABS: CHLORIDE 107 MMOL/L (98-107); POTASSIUM 3.7 MMOL/L (3.6-5.0); SODIUM 141 MMOL/L (135-145)
[2020-02-22 05:31] LABS: CALCIUM 8.4 MG/DL (8.5-10.1)
[2020-02-22 05:32] LABS: GLUCOSE 94 MG/DL (70-105)
[2020-02-22 05:34] LABS: CARBON DIOXIDE 25 MMOL/L (21-32)
[2020-02-22 05:36] LABS: CREATININE SERUM 0.76 MG/DL (0.60-1.30); GFR ESTIMATED > 60
[2020-02-22 05:37] LABS: BUN/CREATININE RATIO 33
[2020-02-22 05:38] LABS: MAGNESIUM 2.1 MG/DL (1.6-2.4)
[2020-02-22 05:47] LABS: EOSINOPHILS % (MANUAL) 2 %; LYMPHOCYTES % (MANUAL) 12 %; MONOCYTES % (MANUAL) 7 %; NEUTROPHILS % (MANUAL) 79 %
[2020-02-22 08:04] VITALS: BP 117/66
[2020-02-22] MEDS: PANTOPRAZOLE 40 MG (PROTONIX) TAB PO SCH (08:15)
[2020-02-22] MEDS: AMIODARONE 200 MG (CORDARONE) TAB PO SCH ×2 (08:15→20:58)
[2020-02-22] MEDS: meTOprolol TARTRATE 50 MG (LOPRESSOR) TAB PO SCH ×3 (08:15→20:58)
[2020-02-22] MEDS: MEXILETINE 200 MG (MEXITIL) CAPSULE PO SCH ×2 (08:15→20:58)
[2020-02-22] MEDS: APIXABAN 5 MG (ELIQUIS) TABLET PO SCH ×2 (08:16→20:58)
--- NOTE | 2020-02-22 09:18 | NUR ---
PT 95% ON RA THIS AM DURING ASSESSMENT, PT WAS TAKEN TO THE BA AT APPROX 0900 AND O2 CHECKED WHEN PT RETURNED TO BED. SPO2 WAS 78%,O2 WAS APPLIED AT 2L, PT RECOVERED QUICKLY AND IS NOW 92% ON 2L VIA NC. WILL CONTINUE TO MONITOR.
--- NOTE | 2020-02-22 09:47 | NUR ---
RD FOLLOW-UP Note PO intake has been improving over the last couple of days. Note avg PO intake 100% x4meal. DC current supplementation order of Ensure Enlive with meals TID. Pt's avg PO intake >75%, per chart review. Will continue to follow and reassess as pt needs, intake, and status change. Emerson Dunaway, MS, RD, LD
--- NOTE | 2020-02-22 10:56 | Physical Therapy Daily Note ---
PT Daily Note-Current Subjective Patient in bed pre tx, agrees to PT, has no complaints of pain. Will be co- treating with OT due to poor patient mobility, strength, endurance, O2 sat drop with activity. Appearance Patient in recliner post tx with nurse call, phone, tray, all needs met. Mental Status Patient Orientation: Person, Unable to Assess Attachments: Oxygen Transfers SCALE: Activities may be completed with or without assistive devices. 9-Cwzzamumjo-eauaari completes the activity by him/herself with no assistance from a helper. 5-Set-up or Clean-up Assistance-helper sets up or cleans up; patient completes activity. [place] assists only prior to or following the activity. 4-Supervision or Touching Assistance-helper provides verbal cues and/or touching/steadying and/or contact guard assistance as patient completes activity. Assistance may be provided throughout the activity or intermittently. 3-Partial/Moderate Assistance-helper does LESS THAN HALF the effort. [place] lifts, holds or supports trunk or limbs, but provides less than half the effort. 2-Substantial/Maximal Assistance-helper does MORE THAN HALF the effort. [place] lifts or holds trunk or limbs and provides more than half the effort. 9-Zjhhbkbkw-pdrtgm does ALL the effort. Patient does none of the effort to complete the activity. Or, the assistance of 2 or more helpers is required for the patient to complete the activity. If activity was not attempted, code reason: 7-Patient Refused. 9-Not Applicable-not attempted and the patient did not perform the activity before the current illness, exacerbation or injury. 10-Not Attempted due to Environmental Limitations-(lack of equipment, weather restraints, etc.). 88-Not Attempted due to Medical Conditions or Safety Concerns. Roll Left & Right (QC): 6 Lying to Sitting/Side of Bed(Q: 4 Sit to Stand (QC): 3 Chair/Kgh-nk-Mizpl Xfer(QC): 4 Weight Bearing Right Lower Extremity: Right Weight Bearing/Tolerated Left Lower Extremity: Left Weight Bearing/Tolerated Gait Training Distance: 30', 5' Walk 10 feet (QC): 4 Gait Persons Needed: 1 Gait Assistive Device: FWW Patient ambulated around the bed to the door and then back around the bed to where he started. CGA for ambulation but needs min assist to stand. Patient's O2 sat declined to low 80's on 2L, bumped up to 3L and he was able to recover after a few minutes. Performed some grooming and ADL's with OT. Then ambulated to the recliner. Treatments bed mobility and transfers, ambulation Assessment Current Status: Fair Progress improving general mobility but O2 sat drops with activity PT Faculty Research Assistant Goals Correction Goals PT Faculty Research Assistant Goals Time Frame: Feb 21, 2020 Roll Left & Right (QC): 3 Sit to Lying (QC): 3 Lying-Sitting on Side/Bed(QC): 3 Sit to Stand (QC): 3 Chair/Kll-ds-Tgjhj Xfer(QC): 3 PT Plan Problem List Problem List: Activity Tolerance, Functional Strength, Safety, Balance, Gait, Transfer Treatment/Plan Treatment Plan: Continue Plan of Care Treatment Plan: Bed Mobility, Education, Functional Activity Berta, Functional Strength, Gait, Safety, Therapeutic Exercise, Transfers Treatment Duration: Feb 21, 2020 Frequency: 6 times per week Estimated Hrs Per Day: .25 hour per day Patient and/or Family Agrees t: Yes Safety Risks/Education Patient Education: Gait Training, Transfer Techniques, Correct Positioning, Safety Issues Teaching Recipient: Patient Teaching Methods: Demonstration, Discussion Response to Teaching: Reinforcement Needed Time/GCodes Time In: 0955 Time Out: 1012 Total Billed Treatment Time: 17 Total Billed Treatment 1 visit FA Dk' ALEXANDRIA NAQVI PT Feb 22, 2020 10:56
--- NOTE | 2020-02-22 11:01 | Occupational Ther Daily Note ---
OT Current Status-Daily Note Subjective Pt. in bed when therapy entered room. Appearance Pt. is able to indicate that he has no pain. Pt. is alert. Mental Status/Objective Patient Orientation: Person ADL-Treatment Therapy Code Descriptions/Definitions Functional [place] Measure: 0=Not Assessed/NA 4=Minimal Assistance 1=Total Assistance 5=Supervision or Setup 2=Maximal Assistance 6=Modified [place] 3=Moderate Assistance 7=Complete IndependenceSCALE: Activities may be completed with or without assistive devices. 8-Dmpeztmqjh-mydwwsu completes the activity by him/herself with no assistance from a helper. 5-Set-up or Clean-up Assistance-helper sets up or cleans up; patient completes activity. [place] assists only prior to or following the activity. 4-Supervision or Touching Assistance-helper provides verbal cues and/or touching/steadying and/or contact guard assistance as patient completes activity. Assistance may be provided throughout the activity or intermittently. 3-Partial/Moderate Assistance-helper does LESS THAN HALF the effort. [place] l ifts, holds or supports trunk or limbs, but provides less than half the effort. 2-Substantial/Maximal Assistance-helper does MORE THAN HALF the effort. [place] lifts or holds trunk or limbs and provides more than half the effort. 9-Uxoofjtct-zjxjyl does ALL the effort. Patient does none of the effort to complete the activity. Or, the assistance of 2 or more helpers is required for t he patient to complete the activity. If activity was not attempted, code reason: 7-Patient Refused. 9-Not Applicable-not attempted and the patient did not perform the activity before the current illness, exacerbation or injury. 10-Not Attempted due to Environmental Limitations-(lack of equipment, weather restraints, etc.). 88-Not Attempted due to Medical Conditions or Safety Concerns. Oral Hygiene (QC): 5 (Pt. required set up for oral care and to brush hair while seated on side of bed.) On/Off Footwear: 4 (SBA) Other Treatment OT/PT co-treated due to skilled need of two therapists. PT facilitated mobility and transfers while OT facilitated ADL skills. Pt. on 2 L 02 and in no distress. Pt. transferred supine-sit with SBA. Pt. able to bend over and don socks with SBA. Stood with min assist from bed, and ambulated to the door and back to bed. Pt. visibly SOA, and required rest break. O2 sats at 82%. Pt. encouraged to breathe through his nose and out of his mouth. Pt. given time to see if sats increased. They increased slowly and so pt's oxygen bumped to 3 L. Sats raised to 90% after lengthy rest break. Pt. issued brush and toothbrush. Pt. able to brush hair, and brush teeth while seated on side of bed. Pt. then nods and agrees to transfer to chair in room. Completed with min assist for sit-stand. All needs met. Education OT Patient Education: Correct positioning, Modified ADL techniques, Progress toward Goal/Update tx plan, Purpose of tx/functional activities, Reviewed precautions, Rehab process, Transfer techniques Teaching Recipient: Patient Teaching Methods: Demonstration, Discussion Response to Teaching: Verbalize Understanding, Return Demonstration OT Director Online Marketing Goals Director Online Marketing Goals Time Frame: Mar 01, 2020 Eating (QC): 6 Oral Hygiene (QC): 6 Toileting Hygiene (QC): 6 Shower/Bathe Self (QC): 6 Upper Body Dressing (QC): 6 Lower Body Dressing (QC): 6 On/Off Footwear (QC): 6 1=Demonstrate adherence to instructed precautions during ADL tasks. 2=Patient will verbalize/demonstrate understanding of assistive devices /modifications for ADL. 3=Patient will improve strength/tolerance for activity to enable patient to perform ADL's. OT Education/Plan Problem List/Assessment Assessment: Decreased Activ Tolerance, Decreased UE Strength, Dependent Transfers, Impaired I ADL's, Impaired Self-Care Skills Discharge Recommendations Plan/Recommendations: Continue POC Therapy Discharge Recommendati: Post Acute OT Treatment Plan/Plan of Care Treatment,Training & Education: Yes Patient would benefit from OT for education, treatment and training to promote independence in ADL's, mobility, safety and/or upper extremity function for ADL's. Plan of Care: ADL Retraining, Functional Mobility, UE Funct Exercise/Act Treatment Duration: Mar 01, 2020 Frequency: 5 times per week Estimated Hrs Per Day: .25 hour per day Agreement: Yes Rehab Potential: Fair Time/GCodes Start Time: 09:55 Stop Time: 10:12 Total Time Billed (hr/min): 17 Billed Treatment Time 1, ADL x 17minutes Co-treatment performed with PT. Please see above note for designated roles. MISAEL RAMIREZ OT Feb 22, 2020 11:01
[2020-02-22 11:07] VITALS: BP 110/63
--- NOTE | 2020-02-22 11:56 | NUR ---
Pt declined communion today while eating crackers. Diamond Assorter offered blessing.
[2020-02-22 16:00] VITALS: BP 127/69
--- NOTE | 2020-02-22 16:13 | NUR ---
DR SMITH NOTIFIED OF 37.4 TEMP
[2020-02-22 20:04] VITALS: BP 119/56
[2020-02-23] VITALS (7 sets, daily range): BP systolic 101–133; BP diastolic 61–73
[2020-02-23] MEDS: ALBUTEROL/IPRATROP (COMBIVENT RESPIMAT) 4 GM INHALER IH SCH ×4 (02:40→20:31)
[2020-02-23 05:51] LABS: BASOPHILS % (AUTO) 0 % (0-10); EOSINOPHILS # (AUTO) 0.5 10^3/uL (0.0-0.3); EOSINOPHILS % (AUTO) 3 % (0-10); HEMATOCRIT 32 % (40-54); HEMOGLOBIN 10.3 G/DL (13.3-17.7); LYMPHOCYTES # (AUTO) 1.5 X 10^3 (1.0-4.0); LYMPHOCYTES % (AUTO) 10 % (12-44); MEAN CORPUSCULAR HEMOGLOBIN 30 PG (25-34); MEAN CORPUSCULAR HGB CONC 32 G/DL (32-36); MEAN CORPUSCULAR VOLUME 94 FL (80-99); MEAN PLATELET VOLUME 10.9 FL (7.4-10.4); MONOCYTES # (AUTO) 1.2 X 10^3 (0.0-1.0); MONOCYTES % (AUTO) 8 % (0-12); NEUTROPHILS # (AUTO) 11.6 X 10^3 (1.8-7.8); NEUTROPHILS % (AUTO) 78 % (42-75); PLATELET COUNT 252 10^3/uL (130-400); RED CELL DISTRIBUTION WIDTH 14.9 % (10.0-14.5); WHITE BLOOD COUNT 14.8 10^3/uL (4.3-11.0)
[2020-02-23 06:02] LABS: CHLORIDE 108 MMOL/L (98-107); POTASSIUM 3.6 MMOL/L (3.6-5.0); SODIUM 142 MMOL/L (135-145)
[2020-02-23 06:04] LABS: CALCIUM 8.4 MG/DL (8.5-10.1); GLUCOSE 98 MG/DL (70-105)
[2020-02-23 06:06] LABS: CARBON DIOXIDE 26 MMOL/L (21-32)
[2020-02-23 06:08] LABS: CREATININE SERUM 0.72 MG/DL (0.60-1.30); GFR ESTIMATED > 60; PHOSPHORUS 3.2 MG/DL (2.3-4.7)
[2020-02-23 06:09] LABS: BUN/CREATININE RATIO 36
[2020-02-23 06:11] LABS: MAGNESIUM 2.1 MG/DL (1.6-2.4)
[2020-02-23] MEDS: meTOprolol TARTRATE 50 MG (LOPRESSOR) TAB PO SCH ×3 (09:29→21:43)
[2020-02-23] MEDS: APIXABAN 5 MG (ELIQUIS) TABLET PO SCH ×2 (09:29→21:43)
[2020-02-23] MEDS: AMIODARONE 200 MG (CORDARONE) TAB PO SCH ×2 (09:29→21:43)
[2020-02-23] MEDS: MEXILETINE 200 MG (MEXITIL) CAPSULE PO SCH ×2 (09:29→21:43)
[2020-02-23] MEDS: PANTOPRAZOLE 40 MG (PROTONIX) TAB PO SCH (09:29)
--- NOTE | 2020-02-23 11:08 | NUR ---
Inpatient Rehab Prior Authorization Status Spoke with a independent sales representative from [facility]. Clinical information was received yesterday, 02/22/2020. At this time, the request for prior authorization to the inpatient rehab unit is "under review." Will continue to monitor status of pending authorization.
--- NOTE | 2020-02-23 13:40 | Physical Therapy Daily Note ---
PT Daily Note-Current Subjective Patient in bed pre tx, agrees to PT, has no complaints of pain. Patient has a nasal canula but is not wearing it, O2 is 90%. Appearance Patient in bed post tx with nurse call, phone, tray, all needs met, O2 at 90% again. Mental Status Patient Orientation: Person, Unable to Assess Attachments: Oxygen, Wilson Catheter Transfers SCALE: Activities may be completed with or without assistive devices. 1-Vkpklthhmd-dyfhlde completes the activity by him/herself with no assistance from a helper. 5-Set-up or Clean-up Assistance-helper sets up or cleans up; patient completes activity. [place] assists only prior to or following the activity. 4-Supervision or Touching Assistance-helper provides verbal cues and/or touc alexander/steadying and/or contact guard assistance as patient completes activity. Assistance may be provided throughout the activity or intermittently. 3-Partial/Moderate Assistance-helper does LESS THAN HALF the effort. [place] lifts, holds or supports trunk or limbs, but provides less than half the effort. 2-Substantial/Maximal Assistance-helper does MORE THAN HALF the effort. [place] lifts or holds trunk or limbs and provides more than half the effort. 7-Pxgublvkm-ejrlvd does ALL the effort. Patient does none of the effort to complete the activity. Or, the assistance of 2 or more helpers is required for the patient to complete the activity. If activity was not attempted, code reason: 7-Patient Refused. 9-Not Applicable-not attempted and the patient did not perform the activity before the current illness, exacerbation or injury. 10-Not Attempted due to Environmental Limitations-(lack of equipment, weather restraints, etc.). 88-Not Attempted due to Medical Conditions or Safety Concerns. Roll Left & Right (QC): 6 Sit to Lying (QC): 6 Lying to Sitting/Side of Bed(Q: 6 Sit to Stand (QC): 4 Chair/Nzo-bc-Rjril Xfer(QC): 4 SBA with sit to stand and transfers, much more steady today, less shaky Weight Bearing Right Lower Extremity: Right Weight Bearing/Tolerated Left Lower Extremity: Left Weight Bearing/Tolerated Gait Training Distance: 30'x2 Walk 10 feet (QC): 4 Gait Persons Needed: 1 Gait Assistive Device: FWW CGA, cues for direction, some SOB with activity, O2 decreased to 84% with ambulation, comes back up to 90% without using nasal canula after approx 60 seconds each time. Treatments bed mobility and transfers, ambulation Assessment Current Status: Fair Progress improving endurance and strength PT Video Editing Internship Goals Nursing Home Goals PT Nursing Home Goals Time Frame: Feb 21, 2020 Roll Left & Right (QC): 3 Sit to Lying (QC): 3 Lying-Sitting on Side/Bed(QC): 3 Sit to Stand (QC): 3 Chair/Sow-pn-Zfbmg Xfer(QC): 3 PT Plan Problem List Problem List: Activity Tolerance, Functional Strength, Safety, Balance, Gait, Transfer, Bed Mobility, ROM Treatment/Plan Treatment Plan: Continue Plan of Care Treatment Plan: Bed Mobility, Education, Functional Activity Berta, Functional Strength, Gait, Safety, Therapeutic Exercise, Transfers Treatment Duration: Feb 21, 2020 Frequency: 6 times per week Estimated Hrs Per Day: .25 hour per day Patient and/or Family Agrees t: Yes Safety Risks/Education Patient Education: Gait Training, Transfer Techniques, Correct Positioning, Safety Issues Teaching Recipient: Patient Teaching Methods: Demonstration, Discussion Response to Teaching: Reinforcement Needed Time/GCodes Time In: 1324 Time Out: 1335 Total Billed Treatment Time: 11 Total Billed Treatment 1 visit GT 11' ALEXANDRIA NAQVI PT Feb 23, 2020 13:40
--- NOTE | 2020-02-23 13:47 | Occupational Ther Daily Note ---
OT Current Status-Daily Note Subjective Pt laying in bed, agreeable to therapy on this date. Pt and OT communicated through Occitan and gestures, pt reports being able to speak/understand a little Occitan. Mental Status/Objective Patient Orientation: Person Attachments: Wilson Catheter, Oxygen, Telemetry ADL-Treatment Therapy Code Descriptions/Definitions Functional [place] Measure: 0=Not Assessed/NA 4=Minimal Assistance 1=Total Assistance 5=Supervision or Setup 2=Maximal Assistance 6=Modified Cr[place] 3=Moderate Assistance 7=Complete IndependenceSCALE: Activities may be completed with or without assistive devices. 1-Ccsbobqwqv-ekhdrpt completes the activity by him/herself with no assistance from a helper. 5-Set-up or Clean-up Assistance-helper sets up or cleans up; patient completes activity. [place] assists only prior to or following the activity. 4-Supervision or Touching Assistance-helper provides verbal cues and/or touc alexander/steadying and/or contact guard assistance as patient completes activity. Assistance may be provided throughout the activity or intermittently. 3-Partial/Moderate Assistance-helper does LESS THAN HALF the effort. [place] lifts, holds or supports trunk or limbs, but provides less than half the effort. 2-Substantial/Maximal Assistance-helper does MORE THAN HALF the effort. [place] lifts or holds trunk or limbs and provides more than half the effort. 3-Bscpyuxga-crshvl does ALL the effort. Patient does none of the effort to complete the activity. Or, the assistance of 2 or more helpers is required for the patient to complete the activity. If activity was not attempted, code reason: 7-Patient Refused. 9-Not Applicable-not attempted and the patient did not perform the activity before the current illness, exacerbation or injury. 10-Not Attempted due to Environmental Limitations-(lack of equipment, weather restraints, etc.). 88-Not Attempted due to Medical Conditions or Safety Concerns. Oral Hygiene (QC): 5 Other Treatment Pt laying in bed, transferred supine to sit independently. Pt's O2 at 90% on RA, he had NC at 2L but was not wearing it. He then transferred sit to stand with SBA, using the FWW pt ambulated from the bed to the door and back to the bed with CGA and cues for sequencing and safety, x2 trials with seated rest break. With ambulation, pt's O2 dropped to 84% but returned to 90% after ~1min without NC after each trial. Pt then sat EOB in order to brush his teeth and his hair, he completed both tasks with set up. Pt transferred sit to supine independently. Post OT tx, pt laying in bed, call light in reach and all needs met. Education OT Patient Education: Correct positioning, Energy conservation, Modified ADL techniques, Progress toward Goal/Update tx plan, Purpose of tx/functional activities, Transfer techniques Teaching Recipient: Patient Teaching Methods: Demonstration, Discussion Response to Teaching: Verbalize Understanding, Return Demonstration, Reinforcement Needed OT Alf Goals Alf Goals Time Frame: Mar 01, 2020 Eating (QC): 6 Oral Hygiene (QC): 6 Toileting Hygiene (QC): 6 Shower/Bathe Self (QC): 6 Upper Body Dressing (QC): 6 Lower Body Dressing (QC): 6 On/Off Footwear (QC): 6 1=Demonstrate adherence to instructed precautions during ADL tasks. 2=Patient will verbalize/demonstrate understanding of assistive devices/modifications for ADL. 3=Patient will improve strength/tolerance for activity to enable patient to perform ADL's. OT Education/Plan Problem List/Assessment Assessment: Decreased Activ Tolerance, Decreased Safety Aware, Decreased UE Strength, Impaired Funct Balance, Impaired I ADL's, Impaired Self-Care Skills Discharge Recommendations Plan/Recommendations: Continue POC Treatment Plan/Plan of Care Patient would benefit from OT for education, treatment and training to promote independence in ADL's, mobility, safety and/or upper extremity function for ADL's. Plan of Care: ADL Retraining, Functional Mobility, UE Funct Exercise/Act Treatment Duration: Mar 01, 2020 Frequency: 5 times per week Estimated Hrs Per Day: .25 hour per day Agreement: Yes Rehab Potential: Fair Time/GCodes Start Time: 13:24 Stop Time: 13:35 Total Time Billed (hr/min): 11 Billed Treatment Time 1, ADL JOSELIN SEO OT Feb 23, 2020 13:47
--- NOTE | 2020-02-23 14:23 | Progress Note - Hospitalist ---
Subjective HPI/CC On Admission Date Seen by Provider: Feb 22, 2020 Time Seen by Provider: 12:00 Subjective/Events-last exam The language line was use to interpret. He denies any complaints or concerns. He is eating lunch bone marrow arrival. He denies any fevers or chills. He denies any shortness of breath or cough. He denies any chest pain. He denies any nausea or vomiting. He has been working with therapy. Objective Exam Vital Signs Vital Signs Date Time Temp Pulse Resp B/P (MAP) Pulse Ox O2 Delivery O2 Flow Rate FiO2 02/23/20 12:29 57 02/23/20 12:00 36.6 20 118/69 (85) 99 Nasal Cannula 1.00 02/21/20 07:25 16 Capillary Refill : Less Than 3 SecondsLess Than 3 Seconds General Appearance: No Apparent Distress, WD/WN Respiratory: Lungs Clear, Normal Breath Sounds, No Respiratory Distress Cardiovascular: Regular Rate, Rhythm, No Edema, No Murmur Gastrointestinal: Normal Bowel Sounds, Non Tender, Soft Extremity: Normal Inspection, Non Tender, No Pedal Edema Neurologic/Psychiatric: Alert, Oriented x3, Motor Weakness Skin: Normal Color, Warm/Dry Results/Procedures Lab Laboratory Tests 02/23/20 05:05 Patient resulted labs reviewed. Imaging: Reviewed Imaging Report Assessment/Plan Assessment and Plan Assess & Plan/Chief Complaint Critical illness myopathy PT/OT Planning to transfer to inpatient rehab once insurance approval obtained Acute hypoxemic respiratory failure COVID-19 Extubated 02/12, now titrated down to 1 L NC Completed course of Merrem Completed Remdesivir course Continue Decadron taper Continue Eliquis Paroxysmal atrial fibrillation Cardiology consulted, appreciate assistance Continue amiodarone and mexiletine ARDS, resolved Endotracheally intubated, resolved Pneumonia, resolved Cardiac arrest, resolved Diagnosis/Problems Diagnosis/Problems (1) Respiratory failure Status: Acute Qualifiers: Chronicity: acute Respiratory failure complication: hypoxia Qualified Codes: J96.01 - Acute respiratory failure with hypoxia (2) COVID-19 Status: Acute (3) Atrial fibrillation with RVR Status: Acute (4) ARDS (adult respiratory distress syndrome) Status: Resolved Resolution Date/Time: 02/21/20 @ 15:46 Clinical Quality Measures DVT/VTE Risk/Contraindication: Risk Factor Score Per Nursin RFS Level Per Nursing on Admit: 4+=Very High FRANNIE SMITH MD Feb 23, 2020 14:23
--- NOTE | 2020-02-23 16:39 | NUR ---
CM/SS follow up. The patient is still waiting on prior authorization from insurance.
[2020-02-24 00:10] VITALS: BP 113/68
[2020-02-24] MEDS: ALBUTEROL/IPRATROP (COMBIVENT RESPIMAT) 4 GM INHALER IH SCH ×4 (02:58→21:24)
[2020-02-24 04:00] VITALS: BP 115/67
[2020-02-24 06:20] LABS: BASOPHILS % (AUTO) 0 % (0-10); EOSINOPHILS # (AUTO) 0.6 10^3/uL (0.0-0.3); EOSINOPHILS % (AUTO) 5 % (0-10); HEMATOCRIT 33 % (40-54); HEMOGLOBIN 10.5 G/DL (13.3-17.7); LYMPHOCYTES # (AUTO) 1.7 X 10^3 (1.0-4.0); LYMPHOCYTES % (AUTO) 13 % (12-44); MEAN CORPUSCULAR HEMOGLOBIN 30 PG (25-34); MEAN CORPUSCULAR HGB CONC 32 G/DL (32-36); MEAN CORPUSCULAR VOLUME 94 FL (80-99); MEAN PLATELET VOLUME 10.5 FL (7.4-10.4); MONOCYTES # (AUTO) 1.1 X 10^3 (0.0-1.0); MONOCYTES % (AUTO) 8 % (0-12); NEUTROPHILS # (AUTO) 9.9 X 10^3 (1.8-7.8); NEUTROPHILS % (AUTO) 75 % (42-75); PLATELET COUNT 248 10^3/uL (130-400); RED CELL DISTRIBUTION WIDTH 14.9 % (10.0-14.5); WHITE BLOOD COUNT 13.3 10^3/uL (4.3-11.0)
[2020-02-24 06:36] LABS: CHLORIDE 108 MMOL/L (98-107); POTASSIUM 3.7 MMOL/L (3.6-5.0); SODIUM 141 MMOL/L (135-145)
[2020-02-24 06:37] LABS: CALCIUM 8.6 MG/DL (8.5-10.1)
[2020-02-24 06:38] LABS: GLUCOSE 94 MG/DL (70-105)
[2020-02-24 06:39] LABS: CARBON DIOXIDE 25 MMOL/L (21-32)
[2020-02-24 06:41] LABS: CREATININE SERUM 0.68 MG/DL (0.60-1.30); GFR ESTIMATED > 60; PHOSPHORUS 3.2 MG/DL (2.3-4.7)
[2020-02-24 06:42] LABS: BUN/CREATININE RATIO 28
[2020-02-24 08:00] VITALS: BP 123/66
[2020-02-24] MEDS: AMIODARONE 200 MG (CORDARONE) TAB PO SCH ×2 (08:08→21:30)
[2020-02-24] MEDS: MEXILETINE 200 MG (MEXITIL) CAPSULE PO SCH ×2 (08:08→21:30)
[2020-02-24] MEDS: PANTOPRAZOLE 40 MG (PROTONIX) TAB PO SCH (08:08)
[2020-02-24] MEDS: APIXABAN 5 MG (ELIQUIS) TABLET PO SCH ×2 (08:08→21:30)
[2020-02-24] MEDS: meTOprolol TARTRATE 50 MG (LOPRESSOR) TAB PO SCH ×3 (08:08→21:30)
[2020-02-24 12:00] VITALS: BP 120/67
--- NOTE | 2020-02-24 13:07 | Progress Note - Hospitalist ---
Subjective HPI/CC On Admission Date Seen by Provider: Feb 23, 2020 Time Seen by Provider: 12:00 Subjective/Events-last exam He says he is doing good. He is not having any shortness of breath. He denies any fevers. He has been eating and drinking. He has been worked with physical therapy. Objective Exam Vital Signs Vital Signs Date Time Temp Pulse Resp B/P (MAP) Pulse Ox O2 Delivery O2 Flow Rate FiO2 02/24/20 08:54 Nasal Cannula 1.00 02/24/20 08:00 36.6 69 18 123/66 (85) 91 02/21/20 07:25 16 Capillary Refill : Less Than 3 SecondsLess Than 3 Seconds General Appearance: No Apparent Distress, WD/WN Respiratory: Lungs Clear, Normal Breath Sounds, No Respiratory Distress Cardiovascular: Regular Rate, Rhythm, No Edema, No Murmur Gastrointestinal: Normal Bowel Sounds, Non Tender, Soft Extremity: Normal Inspection, Non Tender, No Pedal Edema Neurologic/Psychiatric: Alert, Oriented x3, Motor Weakness Skin: Normal Color, Warm/Dry Results/Procedures Lab Laboratory Tests 02/24/20 06:08 Patient resulted labs reviewed. Imaging: Reviewed Imaging Report Assessment/Plan Assessment and Plan Assess & Plan/Chief Complaint Critical illness myopathy PT/OT Planning to transfer to inpatient rehab once insurance approval obtained Acute hypoxemic respiratory failure COVID-19 Extubated 02/12, now titrated down to 1 L NC Completed course of Merrem Completed Remdesivir course Completed Decadron taper Continue Eliquis Paroxysmal atrial fibrillation Cardiology consulted, appreciate assistance Continue amiodarone and mexiletine ARDS, resolved Endotracheally intubated, resolved Pneumonia, resolved Cardiac arrest, resolved Diagnosis/Problems Diagnosis/Problems (1) Critical illness myopathy Status: Acute (2) COVID-19 Status: Acute (3) Respiratory failure Status: Resolved Qualifiers: Chronicity: acute Respiratory failure complication: hypoxia Qualified Codes: J96.01 - Acute respiratory failure with hypoxia Resolution Date/Time: 02/24/20 @ 13:06 (4) Atrial fibrillation with RVR Status: Resolved Resolution Date/Time: 02/24/20 @ 13:06 (5) ARDS (adult respiratory distress syndrome) Status: Resolved Resolution Date/Time: 02/21/20 @ 15:46 (6) Atrial fibrillation (7) Elevated d-dimer Status: Acute Clinical Quality Measures DVT/VTE Risk/Contraindication: Risk Factor Score Per Nursin RFS Level Per Nursing on Admit: 4+=Very High FRANNIE SMITH MD Feb 24, 2020 13:07
--- NOTE | 2020-02-24 13:10 | Progress Note - Hospitalist ---
Subjective HPI/CC On Admission Date Seen by Provider: Feb 24, 2020 Time Seen by Provider: 10:15 Subjective/Events-last exam He is doing well today. He denies any shortness of breath or cough. He denies any fevers. He has been up and walking to the bathroom. He has been eating and drinking without issue. He says he wants to get his strength back so we can take care of himself. Objective Exam Vital Signs Vital Signs Date Time Temp Pulse Resp B/P (MAP) Pulse Ox O2 Delivery O2 Flow Rate FiO2 02/24/20 08:54 Nasal Cannula 1.00 02/24/20 08:00 36.6 69 18 123/66 (85) 91 02/21/20 07:25 16 Capillary Refill : Less Than 3 SecondsLess Than 3 Seconds General Appearance: No Apparent Distress, WD/WN Respiratory: Lungs Clear, Normal Breath Sounds, No Respiratory Distress Cardiovascular: Regular Rate, Rhythm, No Edema, No Murmur Gastrointestinal: Normal Bowel Sounds, Non Tender, Soft Extremity: Normal Inspection, Non Tender, No Pedal Edema Neurologic/Psychiatric: Alert, Normal Mood/Affect, Motor Weakness Skin: Normal Color, Warm/Dry Results/Procedures Lab Laboratory Tests 02/24/20 06:08 Patient resulted labs reviewed. Assessment/Plan Assessment and Plan Assess & Plan/Chief Complaint Critical illness myopathy PT/OT Planning to transfer to inpatient rehab once insurance approval obtained COVID-19 Extubated 02/12, now on 1 L nasal cannula Completed course of Merrem Completed Remdesivir course Completed Decadron taper Continue Eliquis Paroxysmal atrial fibrillation Cardiology consulted, appreciate assistance Continue amiodarone and mexiletine ARDS, resolved Endotracheally intubated, resolved Pneumonia, resolved Cardiac arrest, resolved Acute hypoxemic respiratory failure, resolved Diagnosis/Problems Diagnosis/Problems (1) Critical illness myopathy Status: Acute (2) COVID-19 Status: Acute (3) Respiratory failure Status: Resolved Qualifiers: Chronicity: acute Respiratory failure complication: hypoxia Qualified Codes: J96.01 - Acute respiratory failure with hypoxia Resolution Date/Time: 02/24/20 @ 13:06 (4) Atrial fibrillation with RVR Status: Resolved Resolution Date/Time: 02/24/20 @ 13:06 (5) ARDS (adult respiratory distress syndrome) Status: Resolved Resolution Date/Time: 02/21/20 @ 15:46 (6) Atrial fibrillation (7) Elevated d-dimer Status: Acute Clinical Quality Measures DVT/VTE Risk/Contraindication: Risk Factor Score Per Nursin RFS Level Per Nursing on Admit: 4+=Very High FRANNIE SMITH MD Feb 24, 2020 13:10
--- NOTE | 2020-02-24 14:27 | Physical Therapy Daily Note ---
PT Daily Note-Current Subjective Pt in bed, agreeable. Pt's phone rang upon resting at EOB. Pt commenced conversation and returned himself to bed. Mental Status Patient Orientation: Person Attachments: Wilson Catheter Transfers SCALE: Activities may be completed with or without assistive devices. 8-Qbselheaam-vrhhfdu completes the activity by him/herself with no assistance from a helper. 5-Set-up or Clean-up Assistance-helper sets up or cleans up; patient completes activity. [place] assists only prior to or following the activity. 4-Supervision or Touching Assistance-helper provides verbal cues and/or touching/steadying and/or contact guard assistance as patient completes activity. Assistance may be provided throughout the activity or intermittently. 3-Partial/Moderate Assistance-helper does LESS THAN HALF the effort. [place] lifts, holds or supports trunk or limbs, but provides less than half the effort. 2-Substantial/Maximal Assistance-helper does MORE THAN HALF the effort. [place] lifts or holds trunk or limbs and provides more than half the effort. 7-Aasaqlkey-clsavx does ALL the effort. Patient does none of the effort to comp lete the activity. Or, the assistance of 2 or more helpers is required for the patient to complete the activity. If activity was not attempted, code reason: 7-Patient Refused. 9-Not Applicable-not attempted and the patient did not perform the activity before the current illness, exacerbation or injury. 10-Not Attempted due to Environmental Limitations-(lack of equipment, weather restraints, etc.). 88-Not Attempted due to Medical Conditions or Safety Concerns. Roll Left & Right (QC): 6 Sit to Lying (QC): 6 Lying to Sitting/Side of Bed(Q: 6 Sit to Stand (QC): 5 Weight Bearing Right Lower Extremity: Right Weight Bearing/Tolerated Left Lower Extremity: Left Weight Bearing/Tolerated Gait Training Does the Patient Walk?: Yes Distance: 30' Walk 10 feet (QC): 5 Gait Persons Needed: 1 Gait Assistive Device: FWW Pt ambulates with FWW with SBA. O2 sats decreased to 82% upon returned to seated EOB, taking approximately 1' to return to >90% Treatments Ambulation with FWW. Pt returned himself to bed, talking on the phone. All needs met. Assessment Current Status: Fair Progress Safe functional mobility, significantly limited functional activity tolerance with O2 desats and extended time to recover. PT Snf Goals Architecture Intern Goals PT Snf Goals Time Frame: Feb 21, 2020 Roll Left & Right (QC): 3 Sit to Lying (QC): 3 Lying-Sitting on Side/Bed(QC): 3 Sit to Stand (QC): 3 Chair/Vqp-ps-Exqdx Xfer(QC): 3 PT Plan Problem List Problem List: Activity Tolerance, Functional Strength, Safety, Balance, Gait, Transfer, Bed Mobility Treatment/Plan Treatment Plan: Continue Plan of Care Treatment Plan: Bed Mobility, Education, Functional Activity Berta, Functional Strength, Gait, Safety, Therapeutic Exercise, Transfers Treatment Duration: Feb 21, 2020 Frequency: 6 times per week Estimated Hrs Per Day: .25 hour per day Patient and/or Family Agrees t: Yes Discharge Recommendations Barriers to Progress Activity tolerance, O2 desaturation Time/GCodes Time In: 1310 Time Out: 1320 Total Billed Treatment Time: 10 Total Billed Treatment 1, FA x 10' MARISOL IVAN DPCecilia Feb 24, 2020 14:27
[2020-02-24 16:29] VITALS: BP 107/64
[2020-02-24 19:30] VITALS: BP 113/69
[2020-02-24] MEDS ORDERED: SENNA W/DOCUSATE (SENOKOT S) TABLET PO SCH (21:00)
[2020-02-24] MEDS ORDERED: SENNOSIDES 8.6 MG (SENOKOT) TAB ONE (21:55)
[2020-02-24] MEDS ORDERED: BISACODYL 10 MG SUPP (DULCOLAX) PR PRN (22:00)
[2020-02-24] MEDS ORDERED: polyethylene glycoL POWDER 17 GM (MIRALAX) PACK PO PRN (22:00)
[2020-02-24] MEDS: DOCUSATE SODIUM 100 MG (COLACE) CAP PO SCH (22:04)
[2020-02-25] VITALS: BP 115/66
[2020-02-25] MEDS: ALBUTEROL/IPRATROP (COMBIVENT RESPIMAT) 4 GM INHALER IH SCH ×4 (03:06→21:00)
[2020-02-25 04:34] VITALS: BP 116/70
[2020-02-25 05:22] LABS: BASOPHILS # (AUTO) 0.1 10^3/uL (0.0-0.1); BASOPHILS % (AUTO) 1 % (0-10); EOSINOPHILS # (AUTO) 0.8 10^3/uL (0.0-0.3); EOSINOPHILS % (AUTO) 8 % (0-10); HEMATOCRIT 32 % (40-54); HEMOGLOBIN 10.3 G/DL (13.3-17.7); LYMPHOCYTES # (AUTO) 1.3 X 10^3 (1.0-4.0); LYMPHOCYTES % (AUTO) 13 % (12-44); MEAN CORPUSCULAR HEMOGLOBIN 30 PG (25-34); MEAN CORPUSCULAR HGB CONC 32 G/DL (32-36); MEAN CORPUSCULAR VOLUME 94 FL (80-99); MEAN PLATELET VOLUME 10.5 FL (7.4-10.4); MONOCYTES # (AUTO) 0.9 X 10^3 (0.0-1.0); MONOCYTES % (AUTO) 9 % (0-12); NEUTROPHILS # (AUTO) 7.4 X 10^3 (1.8-7.8); NEUTROPHILS % (AUTO) 70 % (42-75); PLATELET COUNT 250 10^3/uL (130-400); RED CELL DISTRIBUTION WIDTH 14.9 % (10.0-14.5); WHITE BLOOD COUNT 10.5 10^3/uL (4.3-11.0)
[2020-02-25 05:35] LABS: CHLORIDE 107 MMOL/L (98-107); POTASSIUM 3.6 MMOL/L (3.6-5.0); SODIUM 140 MMOL/L (135-145)
[2020-02-25 05:36] LABS: CALCIUM 8.3 MG/DL (8.5-10.1)
[2020-02-25 05:37] LABS: GLUCOSE 95 MG/DL (70-105)
[2020-02-25 05:38] LABS: CARBON DIOXIDE 24 MMOL/L (21-32)
[2020-02-25 05:40] LABS: GFR ESTIMATED > 60; PHOSPHORUS 3.4 MG/DL (2.3-4.7)
[2020-02-25 05:41] LABS: BUN/CREATININE RATIO 29
[2020-02-25 05:43] LABS: MAGNESIUM 1.8 MG/DL (1.6-2.4)
[2020-02-25 07:50] VITALS: BP 124/69
[2020-02-25] MEDS: MEXILETINE 200 MG (MEXITIL) CAPSULE PO SCH ×2 (09:44→20:48)
[2020-02-25] MEDS: APIXABAN 5 MG (ELIQUIS) TABLET PO SCH ×2 (09:44→20:48)
[2020-02-25] MEDS: DOCUSATE SODIUM 100 MG (COLACE) CAP PO SCH ×2 (09:44→20:48)
[2020-02-25] MEDS: AMIODARONE 200 MG (CORDARONE) TAB PO SCH ×2 (09:44→20:48)
[2020-02-25] MEDS: SENNOSIDES 8.6 MG (SENOKOT) TAB PO SCH ×2 (09:44→20:48)
[2020-02-25] MEDS: meTOprolol TARTRATE 50 MG (LOPRESSOR) TAB PO SCH ×3 (09:44→20:48)
[2020-02-25] MEDS: PANTOPRAZOLE 40 MG (PROTONIX) TAB PO SCH (09:44)
[2020-02-25 12:01] VITALS: BP 128/73
[2020-02-25 16:26] VITALS: BP 116/72
[2020-02-25 19:53] VITALS: BP 123/61
[2020-02-26 00:17] VITALS: BP 117/73
[2020-02-26] MEDS: ALBUTEROL/IPRATROP (COMBIVENT RESPIMAT) 4 GM INHALER IH SCH ×4 (02:46→19:30)
[2020-02-26 04:39] VITALS: BP 129/74
[2020-02-26 05:16] LABS: BASOPHILS # (AUTO) 0.1 10^3/uL (0.0-0.1); BASOPHILS % (AUTO) 1 % (0-10); EOSINOPHILS # (AUTO) 0.7 10^3/uL (0.0-0.3); EOSINOPHILS % (AUTO) 7 % (0-10); HEMATOCRIT 33 % (40-54); HEMOGLOBIN 10.5 G/DL (13.3-17.7); LYMPHOCYTES # (AUTO) 1.3 X 10^3 (1.0-4.0); LYMPHOCYTES % (AUTO) 13 % (12-44); MEAN CORPUSCULAR HEMOGLOBIN 30 PG (25-34); MEAN CORPUSCULAR HGB CONC 32 G/DL (32-36); MEAN CORPUSCULAR VOLUME 93 FL (80-99); MEAN PLATELET VOLUME 10.6 FL (7.4-10.4); MONOCYTES # (AUTO) 0.8 X 10^3 (0.0-1.0); MONOCYTES % (AUTO) 7 % (0-12); NEUTROPHILS # (AUTO) 7.3 X 10^3 (1.8-7.8); NEUTROPHILS % (AUTO) 72 % (42-75); PLATELET COUNT 259 10^3/uL (130-400); WHITE BLOOD COUNT 10.1 10^3/uL (4.3-11.0)
[2020-02-26 05:27] LABS: CHLORIDE 107 MMOL/L (98-107); POTASSIUM 3.7 MMOL/L (3.6-5.0); SODIUM 140 MMOL/L (135-145)
[2020-02-26 05:28] LABS: CALCIUM 8.4 MG/DL (8.5-10.1)
[2020-02-26 05:29] LABS: GLUCOSE 97 MG/DL (70-105)
[2020-02-26 05:30] LABS: CARBON DIOXIDE 24 MMOL/L (21-32)
[2020-02-26 05:33] LABS: CREATININE SERUM 0.76 MG/DL (0.60-1.30); GFR ESTIMATED > 60; PHOSPHORUS 3.3 MG/DL (2.3-4.7)
[2020-02-26 05:34] LABS: BUN/CREATININE RATIO 22
[2020-02-26 05:35] LABS: MAGNESIUM 1.9 MG/DL (1.6-2.4)
[2020-02-26 08:00] VITALS: BP 112/64
[2020-02-26] MEDS: PANTOPRAZOLE 40 MG (PROTONIX) TAB PO SCH (10:11)
[2020-02-26] MEDS: MEXILETINE 200 MG (MEXITIL) CAPSULE PO SCH ×2 (10:11→19:53)
[2020-02-26] MEDS: meTOprolol TARTRATE 50 MG (LOPRESSOR) TAB PO SCH ×3 (10:12→19:53)
[2020-02-26] MEDS: APIXABAN 5 MG (ELIQUIS) TABLET PO SCH ×2 (10:12→19:53)
[2020-02-26] MEDS: DOCUSATE SODIUM 100 MG (COLACE) CAP PO SCH (10:12)
[2020-02-26] MEDS: AMIODARONE 200 MG (CORDARONE) TAB PO SCH ×2 (10:12→19:53)
[2020-02-26] MEDS: SENNOSIDES 8.6 MG (SENOKOT) TAB PO SCH (10:12)
--- NOTE | 2020-02-26 10:27 | NUR ---
Inpatient Prior Authorization Status Spoke with a auto service representative from [facility] [employer] [facility]. Prior authorization is pending and under peer clinical review. Will continue to check on status of prior authorization.
--- NOTE | 2020-02-26 11:15 | NUR ---
Report from Claribel THOMPSON, will assume care of patient at this time.
[2020-02-26 12:00] VITALS: BP 116/71
--- NOTE | 2020-02-26 13:20 | Progress Note - Hospitalist ---
Subjective HPI/CC On Admission Date Seen by Provider: Feb 26, 2020 Time Seen by Provider: 13:16 Subjective/Events-last exam Pt with no complaints. Doing well. Objective Exam Vital Signs Vital Signs Date Time Temp Pulse Resp B/P (MAP) Pulse Ox O2 Delivery O2 Flow Rate FiO2 02/26/20 13:00 72 02/26/20 12:00 36.8 20 116/71 (86) 96 Room Air 02/25/20 20:00 1.00 02/21/20 07:25 16 Capillary Refill : Less Than 3 SecondsLess Than 3 Seconds General Appearance: No Apparent Distress, WD/WN Respiratory: Lungs Clear, No Respiratory Distress Cardiovascular: Regular Rate, Rhythm, No Murmur Neurologic/Psychiatric: Alert, Oriented x3 Results/Procedures Lab Laboratory Tests 02/26/20 05:00 Patient resulted labs reviewed. Assessment/Plan Assessment and Plan Assess & Plan/Chief Complaint Critical illness myopathy PT/OT Planning to transfer to inpatient rehab once insurance approval obtained unless it takes so long that he is able to improve here and will DC home with outpatient or therapy services COVID-19 Extubated 02/12, now on room air Completed course of Merrem Completed Remdesivir course Completed Decadron taper Continue Eliquis Paroxysmal atrial fibrillation Cardiology consulted, appreciate assistance Continue amiodarone and mexiletine ARDS, resolved Endotracheally intubated, resolved Pneumonia, resolved Cardiac arrest, resolved Acute hypoxemic respiratory failure, resolved Diagnosis/Problems Diagnosis/Problems (1) Acute respiratory failure Qualifiers: Respiratory failure complication: hypoxia Qualified Codes: J96.01 - Acute respiratory failure with hypoxia (2) Cardiac arrest Status: Acute (3) COVID-19 Status: Acute (4) Elevated LFTs Status: Resolved Resolution Date/Time: 01/28/20 @ 11:25 (5) Elevated d-dimer Status: Acute (6) Shock Status: Resolved Resolution Date/Time: 01/27/20 @ 10:41 (7) ARDS (adult respiratory distress syndrome) Status: Resolved Resolution Date/Time: 02/21/20 @ 15:46 (8) Pneumonia (9) Hypotension (10) Atrial fibrillation with RVR Status: Resolved Resolution Date/Time: 02/24/20 @ 13:06 Clinical Quality Measures DVT/VTE Risk/Contraindication: Risk Factor Score Per Nursin RFS Level Per Nursing on Admit: 4+=Very High NOEMI LUTHER MD Feb 26, 2020 13:20
--- NOTE | 2020-02-26 14:03 | Physical Therapy Daily Note ---
PT Daily Note-Current Subjective Patient in bed pre tx, agrees to PT, no complaints of pain, will be co-treating with OT due to poor patient mobility, strength, endurance, drop in O2 with activity. Appearance Patient in recliner post tx with nurse call, phone, tray, legs elevated. Mental Status Patient Orientation: Person, Unable to Assess Attachments: Wilson Catheter Transfers SCALE: Activities may be completed with or without assistive devices. 1-Mlltmrujut-zycpiov completes the activity by him/herself with no assistance from a helper. 5-Set-up or Clean-up Assistance-helper sets up or cleans up; patient completes a ctivity. [place] assists only prior to or following the activity. 4-Supervision or Touching Assistance-helper provides verbal cues and/or touching/steadying and/or contact guard assistance as patient completes activity. Assistance may be provided throughout the activity or intermittently. 3-Partial/Moderate Assistance-helper does LESS THAN HALF the effort. [place] lifts, holds or supports trunk or limbs, but provides less than half the effort. 2-Substantial/Maximal Assistance-helper does MORE THAN HALF the effort. [place] lifts or holds trunk or limbs and provides more than half the effort. 1-Xfqpmblkc-rzhpue does ALL the effort. Patient does none of the effort to complete the activity. Or, the assistance of 2 or more helpers is required for the patient to complete the activity. If activity was not attempted, code reason: 7-Patient Refused. 9-Not Applicable-not attempted and the patient did not perform the activity before the current illness, exacerbation or injury. 10-Not Attempted due to Environmental Limitations-(lack of equipment, weather restraints, etc.). 88-Not Attempted due to Medical Conditions or Safety Concerns. Roll Left & Right (QC): 6 Sit to Lying (QC): 6 Lying to Sitting/Side of Bed(Q: 6 Sit to Stand (QC): 4 Chair/Zan-gv-Eklzu Xfer(QC): 4 Weight Bearing Right Lower Extremity: Right Weight Bearing/Tolerated Left Lower Extremity: Left Weight Bearing/Tolerated Gait Training Distance: 100'x2 Walk 10 feet (QC): 4 Walk 50 ft with 2 Turns(QC): 4 Gait Assistive Device: FWW CGA, slow but steady ambulation but trembles/is shaky. O2 drops to low 80's with ambulation, takes a couple of minutes to recover to low 90's, also performed standing with UE exercises with OT Treatments bed mobility and transfers, ambulation, standing Assessment Current Status: Fair Progress improving distance of ambulation but O2 continues to drop with activity PT Car Hopper Goals Car Hopper Goals PT Assisted Goals Time Frame: Feb 21, 2020 Roll Left & Right (QC): 3 Sit to Lying (QC): 3 Lying-Sitting on Side/Bed(QC): 3 Sit to Stand (QC): 3 Chair/Wqy-jc-Nioen Xfer(QC): 3 PT Plan Problem List Problem List: Activity Tolerance, Functional Strength, Safety, Balance, Gait, Transfer Treatment/Plan Treatment Plan: Continue Plan of Care Treatment Plan: Bed Mobility, Education, Functional Activity Berta, Functional Strength, Gait, Safety, Therapeutic Exercise, Transfers Treatment Duration: Feb 21, 2020 Frequency: 6 times per week Estimated Hrs Per Day: .25 hour per day Patient and/or Family Agrees t: Yes Safety Risks/Education Patient Education: Gait Training, Transfer Techniques, Correct Positioning, Safety Issues Teaching Recipient: Patient Teaching Methods: Demonstration, Discussion Response to Teaching: Reinforcement Needed Time/GCodes Time In: 1338 Time Out: 1355 Total Billed Treatment Time: 17 Total Billed Treatment 1 visit FA 17' ALEXANDRIA NAQVI PT Feb 26, 2020 14:03
--- NOTE | 2020-02-26 14:48 | Occupational Ther Daily Note ---
OT Current Status-Daily Note Subjective Pt seen reclined in bed. Pt alert. Pt introduced to OT. Pt and OT utilize [place]/ minimal Stateless, and gestures/ body language for fluid communication this session. Pt denies pain at this time. When asked how breathing is, pt states, "[place]." Mental Status/Objective Patient Orientation: Normal For Age ADL-Treatment Therapy Code Descriptions/Definitions Functional [place] Measure: 0=Not Assessed/NA 4=Minimal Assistance 1=Total Assistance 5=Supervision or Setup 2=Maximal Assistance 6=Modified [place] 3=Moderate Assistance 7=Complete IndependenceSCALE: Activities may be completed with or without assistive devices. 4-Gqddvdnqui-yxrqmed completes the activity by him/herself with no assistance from a helper. 5-Set-up or Clean-up Assistance-helper sets up or cleans up; patient completes activity. [place] assists only prior to or following the activity. 4-Supervision or Touching Assistance-helper provides verbal cues and/or touching/steadying and/or contact guard assistance as patient completes activity. Assistance may be provided throughout the activity or intermittently. 3-Partial/Moderate Assistance-helper does LESS THAN HALF the effort. [place] lifts, holds or supports trunk or limbs, but provides less than half the effort. 2-Substantial/Maximal Assistance-helper does MORE THAN HALF the effort. [place] lifts or holds trunk or limbs and provides more than half the effort. 1-Eezzdlbqg-udpjod does ALL the effort. Patient does none of the effort to complete the activity. Or, the assistance of 2 or more helpers is required for the patient to complete the activity. If activity was not attempted, code reason: 7-Patient Refused. 9-Not Applicable-not attempted and the patient did not perform the activity before the current illness, exacerbation or injury. 10-Not Attempted due to Environmental Limitations-(lack of equipment, weather restraints, etc.). 88-Not Attempted due to Medical Conditions or Safety Concerns. Eating (QC): 6 Other Treatment Pt seen in bed. Pt supine to sit with SBA. pt EOB 02 sats: 94%. Pt ambulates from EOB to doorway with CGA. Pt stands for ~2 min at doorway as mask is gathered. Pt then ambulates ~2 min longer until reaches bed once more. Pt's 02 = 84% with ~2 min recovery period EOB; pt taking short/ shallow breaths through nose. Pt requires cues for deep breaths, attempts but is not able to maintain longer breath. Pt again completes ambulation task, 02 = 80% end of ambulation. Pt requires increased cues for deep breath through nose. pt attempts. Pt sit to stand with SBA, ambulates to chair with SBA. Pt completes UB movement with skilled cues for breath during task, completing ~10 shoulder flexion/ horizontal abduction/ adductions bilaterally in stance. No LOB noted. Pt returns to sit in recliner; pt educated on home exercise activity with demonstration- pt completes shoulder flexion and shoulder extension with resistance to back of chair. Pt demonstrates back 5x. Pt left in chair with all needs met, call light in reach. Education OT Patient Education: Correct positioning, Exercise program, Home exercise program Teaching Recipient: Patient Teaching Methods: Demonstration, Discussion Response to Teaching: Verbalize Understanding, Return Demonstration, Reinforcement Needed OT History Department Chair Goals History Department Chair Goals Time Frame: Mar 01, 2020 Eating (QC): 6 Oral Hygiene (QC): 6 Toileting Hygiene (QC): 6 Shower/Bathe Self (QC): 6 Upper Body Dressing (QC): 6 Lower Body Dressing (QC): 6 On/Off Footwear (QC): 6 1=Demonstrate adherence to instructed precautions during ADL tasks. 2=Patient will verbalize/demonstrate understanding of assistive devices/modifications for ADL. 3=Patient will improve strength/tolerance for activity to enable patient to perform ADL's. OT Education/Plan Problem List/Assessment Assessment: Decreased Activ Tolerance, Decreased UE Strength, Dependent Transfers, Impaired I ADL's, Impaired Self-Care Skills Discharge Recommendations Plan/Recommendations: Continue POC Therapy Discharge Recommendati: Post Acute OT Treatment Plan/Plan of Care Treatment,Training & Education: Yes Patient would benefit from OT for education, treatment and training to promote independence in ADL's, mobility, safety and/or upper extremity function for ADL's. Plan of Care: ADL Retraining, Functional Mobility, UE Funct Exercise/Act Treatment Duration: Mar 01, 2020 Frequency: 5 times per week Estimated Hrs Per Day: .25 hour per day Agreement: Yes Rehab Potential: Fair Time/GCodes Start Time: 13:38 Stop Time: 13:55 Total Time Billed (hr/min): 17 Billed Treatment Time 1, FA (17) SEEMA HINSON OTR Feb 26, 2020 14:47
[2020-02-26 15:52] VITALS: BP 117/71
[2020-02-26 19:49] VITALS: BP 119/72
[2020-02-27 00:04] VITALS: BP 114/67
[2020-02-27 04:25] VITALS: BP 114/69
[2020-02-27 06:04] LABS: BASOPHILS % (AUTO) 0 % (0-10); EOSINOPHILS # (AUTO) 0.6 10^3/uL (0.0-0.3); EOSINOPHILS % (AUTO) 7 % (0-10); HEMATOCRIT 33 % (40-54); HEMOGLOBIN 10.5 G/DL (13.3-17.7); LYMPHOCYTES # (AUTO) 1.1 X 10^3 (1.0-4.0); LYMPHOCYTES % (AUTO) 12 % (12-44); MEAN CORPUSCULAR HEMOGLOBIN 30 PG (25-34); MEAN CORPUSCULAR HGB CONC 32 G/DL (32-36); MEAN CORPUSCULAR VOLUME 94 FL (80-99); MEAN PLATELET VOLUME 10.2 FL (7.4-10.4); MONOCYTES # (AUTO) 0.6 X 10^3 (0.0-1.0); MONOCYTES % (AUTO) 7 % (0-12); NEUTROPHILS # (AUTO) 7.1 X 10^3 (1.8-7.8); NEUTROPHILS % (AUTO) 75 % (42-75); PLATELET COUNT 259 10^3/uL (130-400); RED CELL DISTRIBUTION WIDTH 15.2 % (10.0-14.5); WHITE BLOOD COUNT 9.4 10^3/uL (4.3-11.0)
[2020-02-27 06:13] LABS: CHLORIDE 108 MMOL/L (98-107); POTASSIUM 3.7 MMOL/L (3.6-5.0); SODIUM 141 MMOL/L (135-145)
[2020-02-27 06:14] LABS: CALCIUM 8.3 MG/DL (8.5-10.1)
[2020-02-27 06:15] LABS: GLUCOSE 98 MG/DL (70-105)
[2020-02-27 06:16] LABS: CARBON DIOXIDE 25 MMOL/L (21-32)
[2020-02-27 06:19] LABS: CREATININE SERUM 0.73 MG/DL (0.60-1.30); GFR ESTIMATED > 60
[2020-02-27 06:20] LABS: BUN/CREATININE RATIO 21
[2020-02-27 06:21] LABS: MAGNESIUM 1.9 MG/DL (1.6-2.4)
[2020-02-27 08:00] VITALS: BP 132/74
[2020-02-27] MEDS: AMIODARONE 200 MG (CORDARONE) TAB PO SCH (08:08)
[2020-02-27] MEDS: MEXILETINE 200 MG (MEXITIL) CAPSULE PO SCH (08:08)
[2020-02-27] MEDS: PANTOPRAZOLE 40 MG (PROTONIX) TAB PO SCH (08:08)
[2020-02-27] MEDS: APIXABAN 5 MG (ELIQUIS) TABLET PO SCH (08:08)
[2020-02-27] MEDS: meTOprolol TARTRATE 50 MG (LOPRESSOR) TAB PO SCH ×2 (08:09→13:10)
[2020-02-27] MEDS: ALBUTEROL/IPRATROP (COMBIVENT RESPIMAT) 4 GM INHALER IH SCH ×2 (08:35→15:20)
--- NOTE | 2020-02-27 11:30 | Physical Therapy Daily Note ---
PT Daily Note-Current Subjective Patient in bed pre tx, agrees to PT, has no complaints of pain. Appearance Patient in bed post tx with nurse call, phone, tray, all needs met. Mental Status Patient Orientation: Person, Unable to Assess Attachments: Wilson Catheter Transfers SCALE: Activities may be completed with or without assistive devices. 5-Vwryzvpylj-setwpdp completes the activity by him/herself with no assistance from a helper. 5-Set-up or Clean-up Assistance-helper sets up or cleans up; patient completes activity. [place] assists only prior to or following the activity. 4-Supervision or Touching Assistance-helper provides verbal cues and/or touching/steadying and/or contact guard assistance as patient completes activity. Assistance may be provided throughout the activity or intermittently. 3-Partial/Moderate Assistance-helper does LESS THAN HALF the effort. [place] lifts, holds or supports trunk or limbs, but provides less than half the effort. 2-Substantial/Maximal Assistance-helper does MORE THAN HALF the effort. [place] lifts or holds trunk or limbs and provides more than half the effort. 4-Pjksblxpk-ioijla does ALL the effort. Patient does none of the effort to complete the activity. Or, the assistance of 2 or more helpers is required for the patient to complete the activity. If activity was not attempted, code reason: 7-Patient Refused. 9-Not Applicable-not attempted and the patient did not perform the activity before the current illness, exacerbation or injury. 10-Not Attempted due to Environmental Limitations-(lack of equipment, weather restraints, etc.). 88-Not Attempted due to Medical Conditions or Safety Concerns. Roll Left & Right (QC): 6 Sit to Lying (QC): 6 Lying to Sitting/Side of Bed(Q: 6 Sit to Stand (QC): 4 Chair/Pbg-qh-Ylevb Xfer(QC): 4 SBA for sit to stand and transfers, occasional cues for hand placement Weight Bearing Right Lower Extremity: Right Weight Bearing/Tolerated Left Lower Extremity: Left Weight Bearing/Tolerated Gait Training Distance: 80'x3 Walk 10 feet (QC): 4 Walk 50 ft with 2 Turns(QC): 4 Gait Persons Needed: 1 Gait Assistive Device: FWW Patient ambulated 3 times. O2 started out at 94%, went down to 87% after first ambulation, 85% after the second, and 83% after the third. Patient required a couple of minutes to recover after each bout of ambulation. Treatments bed mobility and transfers, ambulation Assessment Current Status: Fair Progress improving endurance PT Usp Goals Ophthalmic Surgical Assistant Goals PT Usp Goals Time Frame: Feb 21, 2020 Roll Left & Right (QC): 3 Sit to Lying (QC): 3 Lying-Sitting on Side/Bed(QC): 3 Sit to Stand (QC): 3 Chair/Wwf-co-Iqdna Xfer(QC): 3 PT Plan Problem List Problem List: Activity Tolerance, Functional Strength, Safety, Balance, Gait, Transfer Treatment/Plan Treatment Plan: Continue Plan of Care Treatment Plan: Bed Mobility, Education, Functional Activity Berta, Functional Strength, Gait, Safety, Therapeutic Exercise, Transfers Treatment Duration: Feb 21, 2020 Frequency: 6 times per week Estimated Hrs Per Day: .25 hour per day Patient and/or Family Agrees t: Yes Safety Risks/Education Patient Education: Gait Training, Transfer Techniques, Correct Positioning, Safety Issues Teaching Recipient: Patient Teaching Methods: Demonstration, Discussion Response to Teaching: Reinforcement Needed Time/GCodes Time In: 1058 Time Out: 1110 Total Billed Treatment Time: 12 Total Billed Treatment 1 visit GT 12' ALEXANDRIA NAQVI PT Feb 27, 2020 11:30
--- NOTE | 2020-02-27 11:50 | Occupational Ther Daily Note ---
OT Current Status-Daily Note Subjective Pt laying in bed, agreeable to OT tx. Pt and OT communicated through simple Portuguese/[place], and gestures/demonstration. Mental Status/Objective Attachments: Wilson Catheter, Telemetry ADL-Treatment Therapy Code Descriptions/Definitions Functional [place] Measure: 0=Not Assessed/NA 4=Minimal Assistance 1=Total Assistance 5=Supervision or Setup 2=Maximal Assistance 6=Modified [place] 3=Moderate Assistance 7=Complete IndependenceSCALE: Activities may be completed with or without assistive devices. 8-Pbddzjfagr-rpijwgy completes the activity by him/herself with no assistance from a helper. 5-Set-up or Clean-up Assistance-helper sets up or cleans up; patient completes activity. [place] assists only prior to or following the activity. 4-Supervision or Touching Assistance-helper provides verbal cues and/or touching/steadying and/or contact guard assistance as patient completes activity. Assistance may be provided throughout the activity or intermittently. 3-Partial/Moderate Assistance-helper does LESS THAN HALF the effort. [place] lifts, holds or supports trunk or limbs, but provides less than half the effort. 2-Substantial/Maximal Assistance-helper does MORE THAN HALF the effort. [place] lifts or holds trunk or limbs and provides more than half the effort. 7-Ovtccixwj-uzemjh does ALL the effort. Patient does none of the effort to complete the activity. Or, the assistance of 2 or more helpers is required for the patient to complete the activity. If activity was not attempted, code reason: 7-Patient Refused. 9-Not Applicable-not attempted and the patient did not perform the activity before the current illness, exacerbation or injury. 10-Not Attempted due to Environmental Limitations-(lack of equipment, weather restraints, etc.). 88-Not Attempted due to Medical Conditions or Safety Concerns. Other Treatment Pt laying in bed. In order to increase BUE strength and functional endurance wi th tasks, OT educated pt on UE theraband exercises. OT provided pt with HEP with pictures of exercises, and yellow theraband (light resistance). OT demo'd each exercise, then pt completed x10 reps BUEs. Pt required rest breaks between exercises. Pt complete theraband exercises in all planes. OT left theraband and HEP in pt's room. Post OT tx, pt laying in bed, call light in reach and all needs met. Education OT Patient Education: Correct positioning, Energy conservation, Exercise program, Home exercise program, Modified ADL techniques, Progress toward Goal/Update tx plan, Purpose of tx/functional activities Teaching Recipient: Patient Teaching Methods: Demonstration, Discussion Response to Teaching: Verbalize Understanding, Return Demonstration OT Emergency Response Officer Goals Emergency Response Officer Goals Time Frame: Mar 01, 2020 Eating (QC): 6 Oral Hygiene (QC): 6 Toileting Hygiene (QC): 6 Shower/Bathe Self (QC): 6 Upper Body Dressing (QC): 6 Lower Body Dressing (QC): 6 On/Off Footwear (QC): 6 1=Demonstrate adherence to instructed precautions during ADL tasks. 2=Patient will verbalize/demonstrate understanding of assistive devices/modifications for ADL. 3=Patient will improve strength/tolerance for activity to enable patient to perform ADL's. OT Education/Plan Problem List/Assessment Assessment: Decreased Activ Tolerance, Decreased UE Strength, Impaired I ADL's Discharge Recommendations Plan/Recommendations: Continue POC Treatment Plan/Plan of Care Patient would benefit from OT for education, treatment and training to promote independence in ADL's, mobility, safety and/or upper extremity function for ADL's. Plan of Care: ADL Retraining, Functional Mobility, UE Funct Exercise/Act Treatment Duration: Mar 01, 2020 Frequency: 5 times per week Estimated Hrs Per Day: .25 hour per day Agreement: Yes Rehab Potential: Fair Time/GCodes Start Time: 11:20 Stop Time: 11:30 Total Time Billed (hr/min): 10 Billed Treatment Time 1, EX JOSELIN SEO OT Feb 27, 2020 11:50
[2020-02-27 12:00] VITALS: BP 115/75
--- NOTE | 2020-02-27 14:55 | Progress Note - Hospitalist ---
Subjective HPI/CC On Admission Date Seen by Provider: Feb 27, 2020 Time Seen by Provider: 14:52 Subjective/Events-last exam Pt reports feeling better. Was up walking with PT today. No specific complaints. Awaiting insurance authorization for rehab. Objective Exam Vital Signs Vital Signs Date Time Temp Pulse Resp B/P (MAP) Pulse Ox O2 Delivery O2 Flow Rate FiO2 02/27/20 12:40 67 02/27/20 12:00 36.4 18 115/75 (88) 96 Room Air 02/25/20 20:00 1.00 02/21/20 07:25 16 Capillary Refill : Less Than 3 SecondsLess Than 3 Seconds General Appearance: No Apparent Distress, WD/WN Respiratory: Lungs Clear, No Respiratory Distress Cardiovascular: Regular Rate, Rhythm, No Murmur Neurologic/Psychiatric: Alert, Oriented x3 Results/Procedures Lab Laboratory Tests 02/27/20 05:55 Patient resulted labs reviewed. Assessment/Plan Assessment and Plan Assess & Plan/Chief Complaint Critical illness myopathy PT/OT - DC homero Planning to transfer to inpatient rehab hopefully tomorrow, insurance called IRU social work today (02/26) and informed them off approval for IRU 02/21-02/25. SW returned called and confirmed they were authorizing days that had already passed and has not been used. They confirmed. Requested authorization of future rehab days. Hopeful for approval tomorrow. COVID-19 Extubated 02/12, now on room air Completed course of Merrem Completed Remdesivir course Completed Decadron taper Continue Eliquis Paroxysmal atrial fibrillation Cardiology consulted, appreciate assistance Continue amiodarone and mexiletine ARDS, resolved Endotracheally intubated, resolved Pneumonia, resolved Cardiac arrest, resolved Acute hypoxemic respiratory failure, resolved Diagnosis/Problems Diagnosis/Problems (1) Acute respiratory failure Qualifiers: Respiratory failure complication: hypoxia Qualified Codes: J96.01 - Acute respiratory failure with hypoxia (2) Cardiac arrest Status: Acute (3) COVID-19 Status: Acute (4) Elevated LFTs Status: Resolved Resolution Date/Time: 01/28/20 @ 11:25 (5) Elevated d-dimer Status: Acute (6) Shock Status: Resolved Resolution Date/Time: 01/27/20 @ 10:41 (7) ARDS (adult respiratory distress syndrome) Status: Resolved Resolution Date/Time: 02/21/20 @ 15:46 (8) Pneumonia (9) Hypotension (10) Atrial fibrillation with RVR Status: Resolved Resolution Date/Time: 02/24/20 @ 13:06 Clinical Quality Measures DVT/VTE Risk/Contraindication: Risk Factor Score Per Nursin RFS Level Per Nursing on Admit: 4+=Very High NOEMI LUTHER MD Feb 27, 2020 14:55
[2020-02-27 16:34] VITALS: BP 115/75
--- NOTE | 2020-02-28 08:43 | Physician Query Clarification ---
PQ-Uncertain Diagnosis Admission/Discharge Admission Date: Jan 25, 2020 at 13:32 Discharge Date: Feb 27, 2020 at 16:35 The medical record reflects the following clinical scenario: History/Risk Factors: Covid-19, ARDS, pneumonia, shock Clinical Findings: T35.7, P 132, R 45, BP 77/55, WBC 20.1, lactic 1.88 Treatment: IV Vancomycin Question: Is Viral Sepsis w/severe sepsis a clinically valid diagnosis? Viral sepsis was documented in the 01/[address] Bae and mentioned by Dr. Bello in his consult with no further documentation in the medical record. Please document a response in Progress Note or Discharge Summary. 1. Yes, clinically valid, condition resolved. 2. No, condition ruled out. 3. Other, with explanation of clinical findings. 4. Undetermined, no explanation for clinical findings. PHYSICIAN RESPONSE Diagnosis clinically valid: Yes, Conditon resolved Please remember a lack of response to the above will prompt a phone page by CDI/Coding staff. In responding to this query, please exercise your independent professional judgment. The purpose of this communication is to more accurately reflect the complexity of your patients condition. The fact that a question is asked does not imply that any particular answer is desired or expected. Thank you for your timely response to this clarification. Requestors name: [email or web address] THIS PHYSICIAN QUERY FORM IS A PERMANENT PART OF THE MEDICAL RECORD ALE SMILEY Feb 28, 2020 08:43 NOEMI LUTHER MD Feb 28, 2020 13:22
--- NOTE | 2020-02-28 08:49 | Physician Query Clarification ---
PQ-Further Specificity Admission/Discharge Admission Date: Jan 25, 2020 at 13:32 Discharge Date: Feb 27, 2020 at 16:35 The medical record reflects the following clinical scenario: History/Risk Factors: Covid-19, ARDS, Pneumonia, shock Clinical Findings: BP 77/55, T35.7, P 132, R 45, WBC 20.1, Lactic 1.88 Treatment: IVF, Levophed gtt Question: Can you further specify shock per the clinical indicators above? Please document a response in the Progress Notes or Discharge Summary. 1. Septic shock 2. shock not further specified 3. Other, with explanation of the clinical findings. 4. Clinically undetermined, no explanation for the clinical findings. PHYSICIAN RESPONSE Can you specify per above: 1 Please remember a lack of response to the above will prompt a phone page by CDI/Coding staff. In responding to this query, please exercise your independent professional judgment. The purpose of this communication is to more accurately reflect the complexity of your patients condition. The fact that a question is asked does not imply that any particular answer is desired or expected. Thank you for your timely response to this clarification. Requestors name: [email or web address] THIS PHYSICIAN QUERY FORM IS A PERMANENT PART OF THE MEDICAL RECORD ALE SMILEY Feb 28, 2020 08:49 NOEMI LUTHER MD Feb 28, 2020 13:51
--- NOTE | 2020-02-28 15:35 | Discharge Summary ---
Diagnosis/Chief Complaint Date of Admission Jan 25, 2020 at 13:32 Date of Discharge Feb 27, 2020 at 16:35 Discharge Date: Feb 27, 2020 Primary Care Discharge Diagnosis (1) Critical illness myopathy Status: Acute (2) COVID-19 Status: Acute (3) Respiratory failure Status: Resolved (4) Atrial fibrillation with RVR Status: Resolved (5) ARDS (adult respiratory distress syndrome) Status: Resolved (6) Atrial fibrillation (7) Elevated d-dimer Status: Acute Discharge Summary Discharge Physical Exam Allergies: Coded Allergies: No Known Drug Allergies (Unverified , 01/25/20) Vitals & I&Os Vital Signs Date Time Temp Pulse Resp B/P (MAP) Pulse Ox O2 Delivery O2 Flow Rate FiO2 02/27/20 16:34 36.4 67 18 115/75 92 Room Air 1.00 General Appearance: No Apparent Distress, WD/WN Respiratory: Lungs Clear, No Respiratory Distress Cardiovascular: Regular Rate, Rhythm, No Murmur Gastrointestinal: Normal Bowel Sounds, Non Tender, Soft Neurologic/Psychiatric: Alert, Oriented x3 Hospital Course Pt was admitted in acute respiratory failure following cardiac arrest from COVID19. He has a long and complicated course. He required mechanical ventilation for over two weeks secondary to ARDS and profound hypoxia. He was treated with decadron and remdesivir. He was also treated with broad spectrum antibiotics due to secondary infection. He was eventually able to be liberated. He unfortunately developed difficult to treat atrial fibrillation the required multiple cardioversions for rate control. He was eventually titrated off all drips and controlled with amiodarone, metoprolol, and mexiletine. He suffered from profound weakness following his critical illness and was transferred to IRU for intensive therapy. Labs (last 24 hrs) Microbiology 02/14/20 Blood Culture - Final, Complete No growth 02/14/20 MRSA Screen - Final, Complete MRSA not isolated 01/25/20 Urine Culture - Final, Complete NO GROWTH Patient resulted labs reviewed. Discussion & Recommendations Discharge Planning: >30 minutes discharge planning Discharge Home Medications: Active Scripts Active No Active Prescriptions or Reported Medications Instructions to patient/family Please see electronic discharge instructions given to patient. Clinical Quality Measures DVT/VTE Risk/Contraindication: Risk Factor Score Per Nursin RFS Level Per Nursing on Admit: 4+=Very High Problem Qualifiers (1) Respiratory failure: Chronicity: acute Respiratory failure complication: hypoxia Qualified Codes: J96.01 - Acute respiratory failure with hypoxia NOEMI LUTHER MD Feb 28, 2020 15:35
== END 2020-02-27 16:35 | DRG 870 ==
LOC: ER 11:49 → EDBD 11:49 → ICU 13:32 → 4TH 02-20 10:11
PROVIDERS: ADMIT Internal Medicine; ATTEND Internal Medicine Critical Care Medicine
PROC: 5A1955Z Respiratory Ventilation, Greater than 96 Consecutive Hours (ICD-10-PCS; principal; 2020-01-25)
PROC: 0BH17EZ Insertion of Endotracheal Airway into Trachea, Via Natural or Artificial Opening (ICD-10-PCS; 2020-01-25)
PROC: 5A2204Z Restoration of Cardiac Rhythm, Single (ICD-10-PCS; 2020-02-17)
DX: A41.89 Other specified sepsis (principal); R65.21 Severe sepsis with septic shock; U07.1 COVID-19; J80 Acute respiratory distress syndrome; J12.89 Other viral pneumonia; J15.211 Pneumonia due to Methicillin susceptible Staphylococcus aureus; B37.1 Pulmonary candidiasis; J15.6 Pneumonia due to other Gram-negative bacteria; I46.9 Cardiac arrest, cause unspecified; E87.0 Hyperosmolality and hypernatremia; E87.3 Alkalosis; G72.81 Critical illness myopathy; R00.1 Bradycardia, unspecified; Z87.891 Personal history of nicotine dependence; I49.3 Ventricular premature depolarization; I10 Essential (primary) hypertension; E87.8 Other disorders of electrolyte and fluid balance, not elsewhere classified; E83.39 Other disorders of phosphorus metabolism; E87.6 Hypokalemia; I48.0 Paroxysmal atrial fibrillation; D64.9 Anemia, unspecified
CPT/HCPCS: 36415; 36569; 36600; 51702; 71045; 74018; 76937; 80048; 80053; 80202; 80306; 81000; 82728; 82805; 82962; 83605; 83735; 83880; 84100; 84132; 84145; 84443; 84478; 85007; 85025; 85027; 85379; 85384; 85610; 85730; 86141; 87040; 87070; 87077; 87081; 87088; 87186; 87205; 87449; 87899; 93005; 93306; 94002; 94003; 94640; 94760; 94799; 96374; 96375; 99291

== ENCOUNTER 2020-02-27 15:48 | Inpatient (IN) | payer BC ==
[~2020-02-27] VITALS: Ht 170.2 cm; Wt 83.8 kg
[2020-02-27] MEDS ORDERED: DOCUSATE SODIUM 100 MG (COLACE) CAP PO PRN (16:15)
[2020-02-27] MEDS ORDERED: LACTULOSE SYRUP 10GM/15ML (ENULOSE) 30ML UDC PO PRN (16:15)
[2020-02-27] MEDS ORDERED: ENOXAPARIN 40 MG/0.4 ML (LOVENOX) SYR SC SCH (16:15)
[2020-02-27] MEDS ORDERED: CALCIUM CARBONATE 500 MG (TUMS) TAB.CHEW PO PRN (16:15)
[2020-02-27] MEDS ORDERED: FLEET ENEMA ADULT 1 EA BTL PR PRN (16:15)
[2020-02-27] MEDS ORDERED: MELATONIN 3 MG TABLET PO PRN (16:15)
[2020-02-27] MEDS ORDERED: BISACODYL 10 MG SUPP (DULCOLAX) PR PRN ×2 (16:15→17:45)
[2020-02-27] MEDS ORDERED: ONDANSETRON 4 MG (ZOFRAN) ORAL DISSOLVE TAB PO PRN (16:15)
[2020-02-27] MEDS ORDERED: ALPRAZolam 0.25 MG (XANAX) TAB PO PRN (16:15)
[2020-02-27] MEDS ORDERED: LOPERAMIDE 2 MG (IMODIUM) TABLET PO PRN (16:15)
[2020-02-27] MEDS ORDERED: ACETAMINOPHEN 500 MG TAB (TYLENOL) PO PRN (16:15)
[2020-02-27] MEDS ORDERED: guaiFENesin/CODEINE (ROBITUSSIN AC) 10ML UDC PO PRN (16:15)
[2020-02-27] MEDS ORDERED: diphenhydrAMINE 25 MG TAB (BENADRYL) PO PRN (16:15)
--- NOTE | 2020-02-27 16:36 | NUR ---
ERICA DIOR admitted to room 228, with an admitting diagnosis of CRITICAL ILLNESS MYOPATHY, on 02/27/20 from [facility] via WHEELCHAIR, accompanied by RN. ERICA DIOR introduced to surroundings, call light, bed controls, phone, TV, temperature control, lights, meal times, smoking policy, visitor policy, side rail policy, bathrooms and showers. Patient Rights given to patient in the handbook. ERICA DIOR verbalizes understanding that [facility] is not responsible for the loss or damage to any personal effects or valuables that are kept in the patient's possession during their hospitalization. The following Patient Care Plans were discussed with the PATIENT: Discharge Planning, IMPAIRED MOBILITY, HIGH RISK: IMPAIRED SKIN INTEGRITY, HIGH RISK: INJURY, and KNOWLEDGE DEFICIT. ERICA DIOR verbalizes understanding of Interdisciplinary Patient Education. Patient received Patient Rights Booklet, which includes Privacy Act Statement and Data Collection Information Summary.
[2020-02-27 17:28] VITALS: BP 130/68
[2020-02-27 17:33] VITALS: BP 130/68
[2020-02-27] MEDS ORDERED: polyethylene glycoL POWDER 17 GM (MIRALAX) PACK PO PRN (17:45)
[2020-02-27] MEDS ORDERED: RT-ALBUTEROL/IPRATROPIUM 3 ML (DUONEB) VIAL INH PRN (17:45)
[2020-02-27] MEDS ORDERED: HYDROcodone/APAP 5 MG/325 MG (LORTAB) TAB PO PRN (17:45)
[2020-02-27] MEDS ORDERED: CATHETER FLUSH 10 ML SYR IV PRN (17:45)
[2020-02-27] MEDS ORDERED: ACETAMINOPHEN 325 MG TABLET PO PRN (17:45)
--- NOTE | 2020-02-27 18:15 | PM&R Post Admission Assessment ---
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 Patient is very weak and requires close monitoring for hypoxia during exertion. Stamina will need to be increased in order to be weaned off O2 and ultimately DC home. No pain is reported. I converse with the patient via simple medical Jamaican. Patient does not speak Tongan. He works at [employer] and previously smoked and previously drank alcohol but is single and has no children. Bowels are moving well. Urinating well. I reviewed all of the transfer meds and reviewed notes. 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 [employer] PM&R Allergy/Meds/Data Review Allergies Coded Allergies: No Known Drug Allergies (Unverified , 01/25/20) Home Medications No Active Prescriptions or Reported Meds Current Medications Current Medications Reviewed Review of Systems Constitutional: see HPI, dizziness, malaise, weakness EENTM: no symptoms reported Respiratory: dyspnea on exertion, short of breath, wheezing Cardiovascular: no symptoms reported Gastrointestinal: no symptoms reported Genitourinary: no symptoms reported Musculoskeletal: back pain, joint pain Psychiatric/Neurological: No Symptoms Reported All Other Systems Reviewed Negative Unless Noted: Yes Physical Exam Physical Exam Vital Signs Vital Signs - First Documented 02/27/20 02/27/20 17:03 17:28 Temp 37.0 Pulse 68 Resp 18 B/P (MAP) 130/68 (88) Pulse Ox 90 O2 Delivery Room Air Capillary Refill : Height, Weight, BMI Height: '" Weight: lbs. oz. kg; 28.92 BMI Method: General Appearance: No Apparent Distress, WD/WN Eyes: Bilateral Eye Normal Inspection, Bilateral Eye PERRL HEENT: PERRL/EOMI, Normal ENT Inspection, Pharynx Normal Neck: Full Range of Motion, Normal Inspection, Non Tender, Supple, Carotid Bruit Respiratory: Chest Non Tender, Lungs Clear, Normal Breath Sounds, No Accessory Muscle Use, No Respiratory Distress, Decreased Breath Sounds Cardiovascular: Regular Rate, Rhythm, No Edema, No Gallop, No JVD, No Murmur, Normal Peripheral Pulses Gastrointestinal: Normal Bowel Sounds, No Organomegaly, No Pulsatile Mass, Non Tender, Soft Back: Normal Inspection, No CVA Tenderness, No Vertebral Tenderness Extremity: Normal Capillary Refill, Normal Inspection, Normal Range of Motion, Non Tender, No Calf Tenderness, No Pedal Edema Neurologic/Psychiatric: Alert, Oriented x3, No Motor/Sensory Deficits, Normal Mood/Affect, director of casework II-XII Norm as Tested, Abnormal Gait, Motor Weakness (generalized all extremities 4/5) Skin: Normal Color, Warm/Dry Lymphatic: No Adenopathy PM&R Medical Assessment & Plan REHAB/MEDICAL ASSESSMENT AND PLAN: 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 The comorbidities that impact the patients function and/or functional outcome by: severe hypoxia with exertion, AF w/RVR new dx, debility, weakness REHAB PLAN: The patient is being admitted to our comprehensive inpatient rehabilitation facility and can tolerate the intensity of service consisting of at least: 180 minutes of therapy a day, 5 out of 7 days a week Rehab treatment will consist of: PT OT will focus on increasing stamina and increasing energy conservation in order to recover and regain independence and return to independent living The patient/family has a good understanding of our discharge process and will benefit from an interdisciplinary inpatient rehabilitation program. The patient has potential to make improvement and is in need of at least two of the following multidisciplinary therapies including but not limited to physical, occupational, speech, and prosthetics and orthotics. Additionally the patient will need services from respiratory, nutritional services, wound care, psychology, etc. (Customize this to each patient). Given the patients complex condition and risk of further medical complications, rehabilitation services cannot be safely or effectively provided at a lower level of care such as a senior living facility. BARRIERS TO DISCHARGE: Hypoxia limits activity ESTIMATED LOS: 7 days DISPOSITION: Home RELEVANT CHANGES SINCE PREADMISSION SCREENING: I have compared the patients medical and functional status at the time of the preadmission screening and there are: no changes PROGNOSIS: Good REHABILITATION GOALS: 1. PT OT will focus on increasing stamina and increasing energy conservation in order to recover and regain independence and return to independent living All the above goals were reviewed with the patient and he/she is in agreement. By signing this document, I acknowledge that I have personally performed a full physical examination on this patient within 24 hours of admission to this inpatient rehabilitation facility and have determined the patient to be able to tolerate the above course of treatment at an intensive level for a reasonable period of time. I will be completing a detailed individualized Plan of Care for this patient by day #4 of the patients stay based upon the Preadmission Screen, the Post-Admission Evaluation, and the therapy evaluations. Admission Dx/Comorbidities: (1) Critical illness myopathy Status: Acute ICD Codes: G72.81 - Critical illness myopathy (2) COVID-19 Status: Acute (3) Elevated d-dimer Status: Acute ICD Codes: R79.89 - Other specified abnormal findings of blood chemistry (4) Shock Status: Resolved ICD Codes: R57.9 - Shock, unspecified (5) Elevated LFTs Status: Resolved ICD Codes: R94.5 - Abnormal results of liver function studies (6) Acute respiratory failure ICD Codes: J96.00 - Acute respiratory failure, unspecified whether with hypoxia or hypercapnia (7) Cardiac arrest Status: Acute ICD Codes: I46.9 - Cardiac arrest, cause unspecified (8) Pneumonia ICD Codes: J18.9 - Pneumonia, unspecified organism (9) Hypotension ICD Codes: I95.9 - Hypotension, unspecified (10) ARDS (adult respiratory distress syndrome) Status: Resolved ICD Codes: J80 - Acute respiratory distress syndrome (11) Atrial fibrillation ICD Codes: I48.91 - Unspecified atrial fibrillation (12) Atrial fibrillation with RVR Status: Resolved ICD Codes: I48.91 - Unspecified atrial fibrillation Assessment/Plan Assessment and Plan Assess & Plan/Chief Complaint Assessment: Critical illness myopathy Hypoxia COVID-19 ARDS AF w/RVR hx OAC for CVA PPx Plan: IRF protocol OAC Monitor AF ALISA MUÑOZ DO Feb 27, 2020 18:15
--- NOTE | 2020-02-27 18:45 | NUR ---
ORDERS TO ADRIAN TELEY PER DR. MUÑOZ.
[2020-02-27] MEDS: ALBUTEROL/IPRATROP (COMBIVENT RESPIMAT) 4 GM INHALER IH SCH (21:00)
[2020-02-27 21:07] VITALS: BP 121/64
[2020-02-27] MEDS: MEXILETINE 200 MG (MEXITIL) CAPSULE PO SCH (21:10)
[2020-02-27] MEDS: CATHETER FLUSH 10 ML SYR IV SCH (21:10)
[2020-02-27] MEDS: APIXABAN 5 MG (ELIQUIS) TABLET PO SCH (21:11)
[2020-02-27] MEDS: SENNA W/DOCUSATE (SENOKOT S) TABLET PO SCH (21:11)
[2020-02-27] MEDS: polyethylene glycoL POWDER 17 GM (MIRALAX) PACK PO SCH (21:11)
[2020-02-27] MEDS: DOCUSATE SODIUM 100 MG (COLACE) CAP PO SCH (21:11)
[2020-02-27] MEDS: meTOprolol TARTRATE 50 MG (LOPRESSOR) TAB PO SCH (21:11)
[2020-02-27] MEDS: AMIODARONE 200 MG (CORDARONE) TAB PO SCH (21:11)
--- OUTSIDE RECORDS SUMMARY | 2020-02-27 22:18 | XMS REPORT | Continuity of Care Document ---
Author Organization Unknown Address Unknown Phone Unavailable Allergies Active Description Code Type Severity Reaction Onset Reported/Identified Relationship to Patient Clinical Status Yes No Known Drug Allergies [id number] Drug Allergy Unknown N/A 01/25/2020 Medications There is no data. Problems Date Dx Coded Attending Type Code Diagnosis Diagnosed By 01/27/2020 STEFANI FORDE DO Ot I95. 9 HYPOTENSION, UNSPECIFIED 01/27/2020 STEFANI FORDE DO Ot J80 ACUTE RESPIRATORY DISTRESS SYNDROME 01/27/2020 STEFANI FORDE DO Ot R00. 1 BRADYCARDIA, UNSPECIFIED 01/27/2020 STEFANI FORDE DO Ot U07. 1 COVID-19 01/27/2020 STEFANI FORDE DO Ot Z87.891 PERSONAL HISTORY OF NICOTINE DEPENDENCE 01/28/2020 STEFANI FORDE DO Ot I95. 9 HYPOTENSION, UNSPECIFIED 01/28/2020 STEFANI FORDE DO Ot J80 ACUTE RESPIRATORY DISTRESS SYNDROME 01/28/2020 STEFANI FORDE DO Ot R00. 1 BRADYCARDIA, UNSPECIFIED 01/28/2020 STEFANI FORDE DO Ot U07. 1 COVID-19 01/28/2020 STEFANI OFRDE DO Ot Z87.891 PERSONAL HISTORY OF NICOTINE DEPENDENCE 01/29/2020 STEFANI FORDE DO Ot I95. 9 HYPOTENSION, UNSPECIFIED 01/29/2020 STEFANI FORDE DO Ot J80 ACUTE RESPIRATORY DISTRESS SYNDROME 01/29/2020 STEFANI FORDE DO Ot R00. 1 BRADYCARDIA, UNSPECIFIED 01/29/2020 STEFANI FORDE DO Ot U07. 1 COVID-19 01/29/2020 STEFANI FORDE DO Ot Z87.891 PERSONAL HISTORY OF NICOTINE DEPENDENCE 01/29/2020 STEFANI FORDE DO Ot I95. 9 HYPOTENSION, UNSPECIFIED 01/29/2020 STEFANI FORDE DO Ot J80 ACUTE RESPIRATORY DISTRESS SYNDROME 01/29/2020 STEFANI FORDE DO Ot R00. 1 BRADYCARDIA, UNSPECIFIED 01/29/2020 EULA DO, STEFANI M Ot U07. 1 COVID-19 01/29/2020 EULA DO, STEFANI M Ot Z87.891 PERSONAL HISTORY OF NICOTINE DEPENDENCE 01/30/2020 EULA DO, STEFANI M Ot I95. 9 HYPOTENSION, UNSPECIFIED 01/30/2020 EULA DO, STEFANI M Ot J80 ACUTE RESPIRATORY DISTRESS SYNDROME 01/30/2020 EULA DO, STEFANI M Ot R00. 1 BRADYCARDIA, UNSPECIFIED 01/30/2020 EULA DO, STEFANI M Ot U07. 1 COVID-19 01/30/2020 EULA DO, STEFANI M Ot Z87.891 PERSONAL HISTORY OF NICOTINE DEPENDENCE 01/31/2020 EULA DO, STEFANI M Ot I95. 9 HYPOTENSION, UNSPECIFIED 01/31/2020 EULA DO, STEFANI M Ot J80 ACUTE RESPIRATORY DISTRESS SYNDROME 01/31/2020 EULA DO, STEFANI M Ot R00. 1 BRADYCARDIA, UNSPECIFIED 01/31/2020 EULA DO, STEFANI M Ot U07. 1 COVID-19 01/31/2020 EULA DO, STEFANI M Ot Z87.891 PERSONAL HISTORY OF NICOTINE DEPENDENCE 02/01/2020 EULA DO, STEFANI M Ot I95. 9 HYPOTENSION, UNSPECIFIED 02/01/2020 EULA DO, STEFANI M Ot J80 ACUTE RESPIRATORY DISTRESS SYNDROME 02/01/2020 EULA DO, STEFANI M Ot R00. 1 BRADYCARDIA, UNSPECIFIED 02/01/2020 EULA DO, STEFANI M Ot U07. 1 COVID-19 02/01/2020 EULA DO, STEFANI M Ot Z87.891 PERSONAL HISTORY OF NICOTINE DEPENDENCE 02/01/2020 EULA DO, STEFANI M Ot I95. 9 HYPOTENSION, UNSPECIFIED 02/01/2020 EULA DO, STEFANI M Ot J80 ACUTE RESPIRATORY DISTRESS SYNDROME 02/01/2020 EULA DO, STEFAIN M Ot R00. 1 BRADYCARDIA, UNSPECIFIED 02/01/2020 EULA DO, STEFANI M Ot U07. 1 COVID-19 02/01/2020 EULA DO, STEFANI M Ot Z87.891 PERSONAL HISTORY OF NICOTINE DEPENDENCE 02/02/2020 EULA DO, STEFANI M Ot I95. 9 HYPOTENSION, UNSPECIFIED 02/02/2020 EULA DO, STEFANI M Ot J80 ACUTE RESPIRATORY DISTRESS SYNDROME 02/02/2020 EULA DO, STEFANI M Ot R00. 1 BRADYCARDIA, UNSPECIFIED 02/02/2020 EULA DO, STEFANI M Ot U07. 1 COVID-19 02/02/2020 EULA DO, STEFANI M Ot Z87.891 PERSONAL HISTORY OF NICOTINE DEPENDENCE 02/03/2020 EULA DO, STEFANI M Ot I95. 9 HYPOTENSION, UNSPECIFIED 02/03/2020 EULA DO, STEFANI M Ot J80 ACUTE RESPIRATORY DISTRESS SYNDROME 02/03/2020 EULA DO, STEFANI M Ot R00. 1 BRADYCARDIA, UNSPECIFIED 02/03/2020 EULA DO, STEFANI M Ot U07. 1 COVID-19 02/03/2020 EULA DO, STEFANI M Ot Z87.891 PERSONAL HISTORY OF NICOTINE DEPENDENCE 02/04/2020 EULA DO, STEFANI M Ot I95. 9 HYPOTENSION, UNSPECIFIED 02/04/2020 EULA DO, STEFANI M Ot J80 ACUTE RESPIRATORY DISTRESS SYNDROME 02/04/2020 EULA DO, STEFANI M Ot R00. 1 BRADYCARDIA, UNSPECIFIED 02/04/2020 EULA DO, STEFANI M Ot U07. 1 COVID-19 02/04/2020 EULA DO, STEFANI M Ot Z87.891 PERSONAL HISTORY OF NICOTINE DEPENDENCE 02/05/2020 EULA DO, STEFANI M Ot I95. 9 HYPOTENSION, UNSPECIFIED 02/05/2020 EULA DO, STEFANI M Ot J80 ACUTE RESPIRATORY DISTRESS SYNDROME 02/05/2020 EULA DO, STEFANI M Ot R00. 1 BRADYCARDIA, UNSPECIFIED 02/05/2020 EULA DO, STEFANI M Ot U07. 1 COVID-19 02/05/2020 EULA DO, STEFANI M Ot Z87.891 PERSONAL HISTORY OF NICOTINE DEPENDENCE 02/05/2020 EULA DO, STEFANI M Ot I95. 9 HYPOTENSION, UNSPECIFIED 02/05/2020 EULA DO, STEFANI M Ot J80 ACUTE RESPIRATORY DISTRESS SYNDROME 02/05/2020 EULA DO, STEFANI M Ot R00. 1 BRADYCARDIA, UNSPECIFIED 02/05/2020 EULA DO, STEFANI M Ot U07. 1 COVID-19 02/05/2020 EULA DO, STEFANI M Ot Z87.891 PERSONAL HISTORY OF NICOTINE DEPENDENCE 02/06/2020 EULA DO, STEFANI Hanks Ot I95. 9 HYPOTENSION, UNSPECIFIED 02/06/2020 EULA DO, STEFANI M Ot J80 ACUTE RESPIRATORY DISTRESS SYNDROME 02/06/2020 EULA DO, STEFANI Hanks Ot R00. 1 BRADYCARDIA, UNSPECIFIED 02/06/2020 EULA DO, STEFANI M Ot U07. 1 COVID-19 02/06/2020 EULA DO, STEFANI M Ot Z87.891 PERSONAL HISTORY OF NICOTINE DEPENDENCE 02/06/2020 EULA DO, STEFANI M Ot I95. 9 HYPOTENSION, UNSPECIFIED 02/06/2020 EULA DO, STEFANI M Ot J80 ACUTE RESPIRATORY DISTRESS SYNDROME 02/06/2020 EULA DO, STEFANI Hanks Ot R00. 1 BRADYCARDIA, UNSPECIFIED 02/06/2020 UELA DO, STEFANI M Ot U07. 1 COVID-19 02/06/2020 EULA DO, STEFANI M Ot Z87.891 PERSONAL HISTORY OF NICOTINE DEPENDENCE 02/07/2020 EULA DO, STEFANI M Ot I95. 9 HYPOTENSION, UNSPECIFIED 02/07/2020 EULA DO, STEFANI M Ot J80 ACUTE RESPIRATORY DISTRESS SYNDROME 02/07/2020 EULA DO, STEFANI Hanks Ot R00. 1 BRADYCARDIA, UNSPECIFIED 02/07/2020 EULA DO, STEFANI M Ot U07. 1 COVID-19 02/07/2020 EULA DO, STEFANI M Ot Z87.891 PERSONAL HISTORY OF NICOTINE DEPENDENCE 02/08/2020 EULA DO, STEFANI M Ot I95. 9 HYPOTENSION, UNSPECIFIED 02/08/2020 EULA DO, STEFANI M Ot J80 ACUTE RESPIRATORY DISTRESS SYNDROME 02/08/2020 ELUA DO, STEFANI Hanks Ot R00. 1 BRADYCARDIA, UNSPECIFIED 02/08/2020 EULA DO, STEFANI M Ot U07. 1 COVID-19 02/08/2020 EULA DO, STEFANI M Ot Z87.891 PERSONAL HISTORY OF NICOTINE DEPENDENCE 02/09/2020 EULA DO, STEFANI M Ot I95. 9 HYPOTENSION, UNSPECIFIED 02/09/2020 EULA DO, STEFANI M Ot J80 ACUTE RESPIRATORY DISTRESS SYNDROME 02/09/2020 EULA DO, STEFANI M Ot R00. 1 BRADYCARDIA, UNSPECIFIED 02/09/2020 EULA DO, STEFANI M Ot U07. 1 COVID-19 02/09/2020 EULA DO, STEFANI Hanks Ot Z87.891 PERSONAL HISTORY OF NICOTINE DEPENDENCE 02/10/2020 ELUA DO, STEFANI M Ot I95. 9 HYPOTENSION, UNSPECIFIED 02/10/2020 EULA DO, STEFANI M Ot J80 ACUTE RESPIRATORY DISTRESS SYNDROME 02/10/2020 EULA DO, STEFANI Hanks Ot R00. 1 BRADYCARDIA, UNSPECIFIED 02/10/2020 EULA DO, STEFANI M Ot U07. 1 COVID-02/10/2020 EULA DO, STEFANI M Ot Z87.891 PERSONAL HISTORY OF NICOTINE DEPENDENCE 02/11/2020 EULA DO, STEFANI M Ot I95. 9 HYPOTENSION, UNSPECIFIED 02/11/2020 EULA DO, STEFANI M Ot J80 ACUTE RESPIRATORY DISTRESS SYNDROME 02/11/2020 EULA DO, STEFANI M Ot R00. 1 BRADYCARDIA, UNSPECIFIED 02/11/2020 EULA DO, STEFANI M Ot U07. 1 COVID-19 02/11/2020 EULA DO, STEFANI M Ot Z87.891 PERSONAL HISTORY OF NICOTINE DEPENDENCE 02/12/2020 EULA DO, STEFANI M Ot I95. 9 HYPOTENSION, UNSPECIFIED 02/12/2020 EULA DO, STEFANI M Ot J80 ACUTE RESPIRATORY DISTRESS SYNDROME 02/12/2020 EULA DO, STEFANI M Ot R00. 1 BRADYCARDIA, UNSPECIFIED 02/12/2020 EULA DO, STEFANI M Ot U07. 1 COVID-19 02/12/2020 EULA DO, STEFANI M Ot Z87.891 PERSONAL HISTORY OF NICOTINE DEPENDENCE 02/13/2020 EULA DO, STEFANI M Ot I95. 9 HYPOTENSION, UNSPECIFIED 02/13/2020 EULA DO, STEFANI M Ot J80 ACUTE RESPIRATORY DISTRESS SYNDROME 02/13/2020 EULA DO, STEFANI M Ot R00. 1 BRADYCARDIA, UNSPECIFIED 02/13/2020 EULA DO, STEFANI M Ot U07. 1 COVID-19 02/13/2020 EULA DO, STEFANI M Ot Z87.891 PERSONAL HISTORY OF NICOTINE DEPENDENCE 02/13/2020 EULA DO, STEFANI M Ot I95. 9 HYPOTENSION, UNSPECIFIED 02/13/2020 EULA DO, STEFANI M Ot J80 ACUTE RESPIRATORY DISTRESS SYNDROME 02/13/2020 EULA DO, STEFANI M Ot R00. 1 BRADYCARDIA, UNSPECIFIED 02/13/2020 EULA DO, STEFANI M Ot U07. 1 COVID-19 02/13/2020 EULA DO, STEFANI M Ot Z87.891 PERSONAL HISTORY OF NICOTINE DEPENDENCE 02/14/2020 EULA DO, STEFANI M Ot I95. 9 HYPOTENSION, UNSPECIFIED 02/14/2020 EULA DO, STEFANI M Ot J80 ACUTE RESPIRATORY DISTRESS SYNDROME 02/14/2020 EULA DO, STEFANI M Ot R00. 1 BRADYCARDIA, UNSPECIFIED 02/14/2020 EULA DO, STEFANI M Ot U07. 1 COVID-19 02/14/2020 EULA DO, STEFANI M Ot Z87.891 PERSONAL HISTORY OF NICOTINE DEPENDENCE 02/15/2020 EULA DO, STEFANI M Ot I95. 9 HYPOTENSION, UNSPECIFIED 02/15/2020 EULA DO, STEFANI M Ot J80 ACUTE RESPIRATORY DISTRESS SYNDROME 02/15/2020 EULA DO, STEFANI M Ot R00. 1 BRADYCARDIA, UNSPECIFIED 02/15/2020 EULA DO, STEFANI M Ot U07. 1 COVID-19 02/15/2020 EULA DO, STEFANI M Ot Z87.891 PERSONAL HISTORY OF NICOTINE DEPENDENCE 02/15/2020 EULA DO, STEFANI M Ot I95. 9 HYPOTENSION, UNSPECIFIED 02/15/2020 EULA DO, STEFANI M Ot J80 ACUTE RESPIRATORY DISTRESS SYNDROME 02/15/2020 EULA DO, STEFANI M Ot R00. 1 BRADYCARDIA, UNSPECIFIED 02/15/2020 EULA DO, STEFANI M Ot U07. 1 COVID-19 02/15/2020 EULA DO, STEFANI M Ot Z87.891 PERSONAL HISTORY OF NICOTINE DEPENDENCE 02/16/2020 EULA DO, STEFANI M Ot I95. 9 HYPOTENSION, UNSPECIFIED 02/16/2020 EULA DO, STEFANI M Ot J80 ACUTE RESPIRATORY DISTRESS SYNDROME 02/16/2020 EULA DO, STEFANI M Ot R00. 1 BRADYCARDIA, UNSPECIFIED 02/16/2020 EULA DO, STEFANI M Ot U07. 1 COVID-19 02/16/2020 EULA DO, STEFANI M Ot Z87.891 PERSONAL HISTORY OF NICOTINE DEPENDENCE 02/16/2020 EULA DO, STEFANI M Ot I95. 9 HYPOTENSION, UNSPECIFIED 02/16/2020 EULA DO, STEFANI M Ot J80 ACUTE RESPIRATORY DISTRESS SYNDROME 02/16/2020 EULA DO, STEFANI M Ot R00. 1 BRADYCARDIA, UNSPECIFIED 02/16/2020 EULA DO, STEFANI M Ot U07. 1 COVID-19 02/16/2020 EULA DO, STEFANI M Ot Z87.891 PERSONAL HISTORY OF NICOTINE DEPENDENCE 02/16/2020 EULA DO, STEFANI M Ot I95. 9 HYPOTENSION, UNSPECIFIED 02/16/2020 EULA DO, STEFANI M Ot J80 ACUTE RESPIRATORY DISTRESS SYNDROME 02/16/2020 EULA DO, STEFANI M Ot R00. 1 BRADYCARDIA, UNSPECIFIED 02/16/2020 EULA DO, STEFANI M Ot U07. 1 COVID-19 02/16/2020 EULA DO, STEFANI M Ot Z87.891 PERSONAL HISTORY OF NICOTINE DEPENDENCE 02/17/2020 EULA DO, STEFANI M Ot I95. 9 HYPOTENSION, UNSPECIFIED 02/17/2020 EULA DO, STEFANI M Ot J80 ACUTE RESPIRATORY DISTRESS SYNDROME 02/17/2020 EULA DO, STEFANI M Ot R00. 1 BRADYCARDIA, UNSPECIFIED 02/17/2020 EULA DO, STEFANI M Ot U07. 1 COVID-19 02/17/2020 EULA DO, STEFANI M Ot Z87.891 PERSONAL HISTORY OF NICOTINE DEPENDENCE 02/18/2020 EULA DO, STEFANI M Ot I95. 9 HYPOTENSION, UNSPECIFIED 02/18/2020 EULA DO, STEFANI M Ot J80 ACUTE RESPIRATORY DISTRESS SYNDROME 02/18/2020 EULA DO, STEFANI M Ot R00. 1 BRADYCARDIA, UNSPECIFIED 02/18/2020 EULA DO, STEFANI M Ot U07. 1 COVID-19 02/18/2020 EULA DO, STEFANI M Ot Z87.891 PERSONAL HISTORY OF NICOTINE DEPENDENCE 02/19/2020 EULA DO, STEFANI M Ot I95. 9 HYPOTENSION, UNSPECIFIED 02/19/2020 EULA DO, STEFANI M Ot J80 ACUTE RESPIRATORY DISTRESS SYNDROME 02/19/2020 EULA DO, STEFANI M Ot R00. 1 BRADYCARDIA, UNSPECIFIED 02/19/2020 EULA DO, STEFANI M Ot U07. 1 COVID-19 02/19/2020 EULA DO, STEFANI M Ot Z87.891 PERSONAL HISTORY OF NICOTINE DEPENDENCE 02/20/2020 EULA DO, STEFANI M Ot I95. 9 HYPOTENSION, UNSPECIFIED 02/20/2020 EULA DO, STEFANI M Ot J80 ACUTE RESPIRATORY DISTRESS SYNDROME 02/20/2020 EULA DO, STEFANI M Ot R00. 1 BRADYCARDIA, UNSPECIFIED 02/20/2020 EULA DO, STEFANI M Ot U07. 1 COVID-19 02/20/2020 EULA DO, STEFANI M Ot Z87.891 PERSONAL HISTORY OF NICOTINE DEPENDENCE 02/20/2020 EULA DO, STEFANI M Ot I95. 9 HYPOTENSION, UNSPECIFIED 02/20/2020 EULA DO, STEFANI M Ot J80 ACUTE RESPIRATORY DISTRESS SYNDROME 02/20/2020 EULA DO, STEFANI M Ot R00. 1 BRADYCARDIA, UNSPECIFIED 02/20/2020 EULA DO, STEFANI M Ot U07. 1 COVID-19 02/20/2020 EULA DO, STEFANI M Ot Z87.891 PERSONAL HISTORY OF NICOTINE DEPENDENCE 02/20/2020 EULA DO, STEFANI M Ot I95. 9 HYPOTENSION, UNSPECIFIED 02/20/2020 EULA DO, STEFANI M Ot J80 ACUTE RESPIRATORY DISTRESS SYNDROME 02/20/2020 EULA DO, STEFANI Hanks Ot R00. 1 BRADYCARDIA, UNSPECIFIED 02/20/2020 EULA DO, STEFANI M Ot U07. 1 COVID-19 02/20/2020 EULA DO, STEFANI M Ot Z87.891 PERSONAL HISTORY OF NICOTINE DEPENDENCE 02/21/2020 EULA DO, STEFANI M Ot I95. 9 HYPOTENSION, UNSPECIFIED 02/21/2020 EULA DO, STEFANI M Ot J80 ACUTE RESPIRATORY DISTRESS SYNDROME 02/21/2020 EULA DO, STEFANI M Ot R00. 1 BRADYCARDIA, UNSPECIFIED 02/21/2020 EULA DO, STEFANI M Ot U07. 1 COVID-19 02/21/2020 EULA DO, STEFANI M Ot Z87.891 PERSONAL HISTORY OF NICOTINE DEPENDENCE 02/22/2020 EULA DO, STEFANI M Ot I95. 9 HYPOTENSION, UNSPECIFIED 02/22/2020 EULA DO, STEFANI M Ot J80 ACUTE RESPIRATORY DISTRESS SYNDROME 02/22/2020 EULA DO, STEFANI M Ot R00. 1 BRADYCARDIA, UNSPECIFIED 02/22/2020 EULA DO, STEFANI M Ot U07. 1 COVID-19 02/22/2020 EULA DO, STEFANI Hanks Ot Z87.891 PERSONAL HISTORY OF NICOTINE DEPENDENCE 02/22/2020 EULA DO, STEFANI M Ot I95. 9 HYPOTENSION, UNSPECIFIED 02/22/2020 EULA DO, STEFANI M Ot J80 ACUTE RESPIRATORY DISTRESS SYNDROME 02/22/2020 EULA DO, STEFANI M Ot R00. 1 BRADYCARDIA, UNSPECIFIED 02/22/2020 EULA DO, STEFANI M Ot U07. 1 COVID-19 02/22/2020 EULA DO, STEFANI M Ot Z87.891 PERSONAL HISTORY OF NICOTINE DEPENDENCE 02/22/2020 EULA DO, STEFANI M Ot I95. 9 HYPOTENSION, UNSPECIFIED 02/22/2020 EULA DO, STEFANI M Ot J80 ACUTE RESPIRATORY DISTRESS SYNDROME 02/22/2020 EULA DO, STEFANI M Ot R00. 1 BRADYCARDIA, UNSPECIFIED 02/22/2020 EULA DO, STEFANI M Ot U07. 1 COVID-19 02/22/2020 EULA DO, STEFANI M Ot Z87.891 PERSONAL HISTORY OF NICOTINE DEPENDENCE 02/23/2020 EULA DO, STEFANI M Ot I95. 9 HYPOTENSION, UNSPECIFIED 02/23/2020 EULA DO, STEFANI M Ot J80 ACUTE RESPIRATORY DISTRESS SYNDROME 02/23/2020 EULA DO, STEFANI M Ot R00. 1 BRADYCARDIA, UNSPECIFIED 02/23/2020 EULA DO, STEFANI M Ot U07. 1 COVID-19 02/23/2020 EULA DO, STEFANI M Ot Z87.891 PERSONAL HISTORY OF NICOTINE DEPENDENCE 02/24/2020 EULA DO, STEFANI M Ot I95. 9 HYPOTENSION, UNSPECIFIED 02/24/2020 EULA DO, STEFANI M Ot J80 ACUTE RESPIRATORY DISTRESS SYNDROME 02/24/2020 EULA DO, STEFANI M Ot R00. 1 BRADYCARDIA, UNSPECIFIED 02/24/2020 EULA DO, STEFANI M Ot U07. 1 COVID-19 02/24/2020 EULA DO, STEFANI M Ot Z87.891 PERSONAL HISTORY OF NICOTINE DEPENDENCE 02/25/2020 EULA DO, STEFANI M Ot I95. 9 HYPOTENSION, UNSPECIFIED 02/25/2020 EULA DO, STEFANI M Ot J80 ACUTE RESPIRATORY DISTRESS SYNDROME 02/25/2020 EULA DO, STEFANI M Ot R00. 1 BRADYCARDIA, UNSPECIFIED 02/25/2020 STEFANI FORDE DO Ot U07. 1 COVID-19 02/25/2020 STEFANI FORDE DO Ot Z87.891 PERSONAL HISTORY OF NICOTINE DEPENDENCE 02/26/2020 STEFANI FORDE DO Ot I95. 9 HYPOTENSION, UNSPECIFIED 02/26/2020 STEFANI FORDE DO Ot J80 ACUTE RESPIRATORY DISTRESS SYNDROME 02/26/2020 STEFANI FORDE DO Ot R00. 1 BRADYCARDIA, UNSPECIFIED 02/26/2020 STEFANI FORDE DO Ot U07. 1 COVID-19 02/26/2020 STEFANI FORDE DO Ot Z87.891 PERSONAL HISTORY OF NICOTINE DEPENDENCE Procedures Code Description Performed By Per trev On 1BP12IG IN SERTION OF ENDOTRACHEAL AIRWAY INTO TR 01/25/2020 [id number] RE SPIRATORY VENTILATION, 24- 96 CONSECUTI 01/25/2020 Results Test Result Range Arterial blood gas measurement - 0 12:00 Blood pCO2 30 mm[Hg] 35-45 Blood pO2 69 mm[Hg] 79-93 Arterial blood bicarbonate measurement (moles/volume) 21 mmol/L 23-27 Arterial blood base excess by calculation -1.7 mmo l/L -2.5-2.5 Arterial blood oxygen saturation measurement 91 % 94-100 * Inhaled oxygen flow rate 15 NRG Arterial blood pH measurement with patient temperature correction 7.47 7.37-7.43 Arterial blood carbon dioxide, total measurement (mole s/volume) 22.2 mmol/L 21.0-31.0 Body site RT RAD NRG Assessment of wrist artery patency prior to arterial p uncture YES-POS NRG Setting of ventilation mode NO NR G Measurement of body temperature 99.6 NRG Comprehensive metabolic panel - 01/25/20 12:00 Serum or plasma sodium measurement (moles/volume) 138 mmol/L 135-145 Serum or plasma potassium measurement (moles/volume) 4.0 mmol/L 3.6-5.0 Serum or plasma chloride measurement (moles/volume) 105 mmol/L 98-107 Carbon dioxide 21 mmol/L 21-32 Serum or plasma anion gap determination (moles/volume) 12 mmol/L 5-14 Serum or plasma urea nitrogen measurement (mass/volume ) 19 mg/dL 7-18 Serum or plasma creatinine measurement (mass/volume) 0.77 mg/dL 0.60-1.30 Serum or plasma urea nitrogen/creatinine mass ratio 25 NRG Serum or plasma creatinine measurement w ith calculation of estimated glomerular filtration rate > NRG Serum or plasma glucose measurement (mass/volume) 122 mg/dL 70-105 Serum or plasma calcium measurement (mass/volume) 8.5 mg/dL 8.5-10.1 Serum or plasma total bilirubin measurement (mass/volu me) 0.7 mg/dL 0.1-1.0 Serum or plasma alkaline phosphatase serina surement (enzymatic activity/volume) 101 U/L 40-136 Serum or plasma aspartate aminotransfera se measurement (enzymatic activity/volume) 32 U/L 5-34 Serum or plasma alanine aminotransferase measurement (enzymatic activity/volume) 30 U/L 0-55 Serum or plasma protein measurement (mass/volume) 6.9 g/dL 6.4-8.2 Serum or plasma albumin measurement (mass/volume) 3.0 g/dL 3.2-4.5 CALCIUM CORRECTED 9.3 mg/dL 8.5-10.1 PT panel in platelet poor plasma by coag ulation assay - 01/25/20 12:00 Prothrombin time (PT) in platelet poor plasma by coagu lation assay 16.6 s 12.2-14.7 INR in platelet poor plasma or blood by coagulation as say 1.3 0.8-1.4 Activated partial thromboplastin time (a PTT) in platelet poor plasma bycoagulation assay - 01/25/20 12:00 Activated partial thromboplastin time (a PTT) in platelet poor plasma bycoagulation assay 34 s 24-35 Serum or plasma triglyceride measurement (mass/volume) - 01/25/20 12:00 Serum or plasma triglyceride measurement (mass/volume) 129 mg/dL <150 Complete blood count (CBC) with automate d white blood cell (WBC) differential - 01/25/20 12:00 Blood leukocytes automated count (number/volume) 15.3 10*3/uL 4.3-11.0 Blood erythrocytes automated count (number/volume) 4.49 10*6/uL 4.35-5.85 Venous blood hemoglobin measurement (mass/volume) 13.6 g/dL 13.3-17.7 Blood hematocrit (volume fraction) 40 % 40-54 Automated erythrocyte mean corpuscular volume 89 [ foz_us] 80-99 Automated erythrocyte mean corpuscular h emoglobin (mass per erythrocyte) 30 pg 25-34 Automated erythrocyte mean corpuscular h emoglobin concentration measurement (mass/volume) 34 g/dL 32-36 Automated erythrocyte distribution width ratio 13. 4 % 10.0- 14.5 Automated blood platelet count (count/volume) 331 10*3/uL 130-400 Automated blood platelet mean volume measurement 10.2 [[facility]_us] 7.4-10.4 Automated blood neutrophils/100 leukocytes 86 % 42-75 Automated blood lymphocytes/100 leukocytes 7 % 12-44 Blood monocytes/100 leukocytes 6 % 0-12 Automated blood eosinophils/100 leukocytes 1 % 0-10 Automated blood basophils/100 leukocytes 0 % 0-10 Blood neutrophils automated count (number/volume) 13.1 10*3 1.8-7.8 Blood lymphocytes automated count (number/volume) 1.1 10*3 1.0-4.0 Blood monocytes automated count (number/volume) 0. 9 10*3 0.0-1.0 Automated eosinophil count 0.1 10*3/uL 0 .0-0.3 Automated blood basophil count (count/volume) 0.0 10*3/uL 0.0-0.1 Manual absolute plasma cell count - 01/01 12/19 12:00 Blood monocytes/100 leukocytes 3 % NRG Manual blood segmented neutrophils/100 leukocytes 93 % NRG Blood band neutrophils/100 leukocytes 0 % NRG Manual blood lymphocytes/100 leukocytes 4 % NRG Manual eosinophils/100 leukocytes in nose 0 % NRG Manual blood basophils/100 leukocytes 0 % NRG Blood erythrocyte morphology finding identification NORMAL NRG Bacterial blood culture - 01/25/20 12:00 Bacterial blood culture NG NRG Complete urinalysis with reflex to cultu re - 01/25/20 12:28 Urine color determination YELLOW NRG Urine clarity determination CLEAR NR G Urine pH measurement by test strip 7.0 5-9 Specific gravity of urine by test strip 1.025 1.016-1.022 Urine protein assay by test strip, semi-quantitative 3+ NEGATIVE Urine glucose detection by automated test strip NE GATIVE NEGATIVE Erythrocytes detection in urine sediment by light micr oscopy 2+ NEGATIVE Urine ketones detection by automated test strip 1+ NEGATIVE Urine nitrite detection by test strip NEGATIVE NEGATIVE Urine total bilirubin detection by test strip NEGA TIVE NEGATIVE Urine urobilinogen measurement by automated test strip (mass/volume) >= mg/dL < = 1.0 Urine leukocyte esterase detection by dipstick NEG ATIVE NEGATIVE Automated urine sediment erythrocyte cou nt by microscopy (number/high power field) [HPF] NRG Automated urine sediment leukocyte count by microscopy (number/high power field) NONE NRG Bacteria detection in urine sediment by light microsco py NEGATIVE NRG Squamous epithelial cells detection in u rine sediment by light microscopy RARE NRG Crystals detection in urine sediment by light microsco py NONE NRG Casts detection in urine sediment by light microscopy NONE NRG Mucus detection in urine sediment by light microscopy NEGATIVE NRG Complete urinalysis with reflex to culture NO NRG Urine drug screening test - 01/25/20 12: 28 Urine phencyclidine detection by screening method NEGATIVE NEGATIVE Urine benzodiazepines detection by screening method NEGATIVE NEGATIVE Urine cocaine detection NEGATIVE NEGATI VE Urine amphetamines detection by screening method N EGATIVE NEGATIVE Urine methamphetamine detection by screening method NEGATIVE NEGATIVE Urine cannabinoids detection by screening method N EGATIVE NEGATIVE Urine opiates detection by screening method NEGATI VE NEGATIVE Urine barbiturates detection NEGATIVE N EGATIVE Screening urine tricyclic antidepressants detection NEGATIVE NEGATIVE Urine methadone detection by screening method NEGA TIVE NEGATIVE Urine oxycodone detection NEGATIVE NEGA TIVE Urine propoxyphene detection NEGATIVE N EGATIVE Bacterial urine culture - 01/25/20 12:28 Bacterial urine culture NG NRG Bacterial blood culture - 01/25/20 12:30 QUANTITY OF GROWTH . NRG Bacterial blood culture SEE COMMEN NR Sputum Gram stain - 01/25/20 12:44 Sputum Gram stain No bacteria seen NRG Bacterial sputum culture - 01/25/20 12:4 4 QUANTITY OF GROWTH . NR Bacterial sputum culture SEE COMMEN NRG SUSCEPTIBILITY SUSCEPTIBILITY REPORTED 01/28 13:35 NRG Dirithromycin susceptibility test by dis k diffusion - 01/25/20 12:44 Oxacillin susceptibility test by minimum inhibitory co ncentration 0.5 NRG Clindamycin susceptibility test by minimum inhibitory concentration <= NRG Erythromycin susceptibility test by minimum inhibitory concentration <= NRG Trimethoprim/sulfamethoxazole susceptibi lity test by minimum inhibitoryconcentration <= NRG Vancomycin susceptibility test by minimum inhibitory c oncentration 1 NRG Levofloxacin susceptibility test by minimum inhibitory concentration <= NRG Rifampin susceptibility test by minimum inhibitory con centration <= NRG Cefazolin susceptibility test by minimum inhibitory co ncentration <= NRG Linezolid susceptibility test by minimum inhibitory co ncentration 2 NRG Penicillin G susceptibility test by minimum inhibitory concentration 0.5 NRG Moxifloxacin susceptibility test by minimum inhibitory concentration <= NRG Minocycline susc CESARIO <= NRG Blood lactic acid measurement (moles/vol ume) - 01/25/20 12:45 Blood lactic acid measurement (moles/volume) 1.28 mmol/L 0.50-2.00 Serum or plasma C reactive protein measu rement (mass/volume) - 01/25/20 12:45 Serum or plasma C reactive protein measurement (mass/v olume) 31.52 mg/dL 0.00-0.50 Serum or plasma triglyceride measurement (mass/volume) - 01/25/20 12:45 Serum or plasma triglyceride measurement (mass/volume) 130 mg/dL <150 Arterial blood gas measurement - 0 15:08 Blood pCO2 71 mm[Hg] 35-45 Blood pO2 114 mm[Hg] 79-93 Arterial blood bicarbonate measurement (moles/volume) 22 mmol/L 23-27 Arterial blood base excess by calculation -6.0 mmo l/L -2.5-2.5 Arterial blood oxygen saturation measurement 95 % 94-100 * Inhaled oxygen flow rate 70% NRG Arterial blood pH measurement with patient temperature correction 7.12 7.37-7.43 Arterial blood carbon dioxide, total measurement (mole s/volume) 24.3 mmol/L 21.0-31.0 Body site RRAD NRG Assessment of wrist artery patency prior to arterial p uncture YES-POS NRG Setting of ventilation mode YES NR G Measurement of body temperature 37.1 NRG Capillary blood glucose measurement by g lucometer (mass/volume) - 01/25/20 15:14 Capillary blood glucose measurement by glucometer (mas s/volume) 195 mg/dL 70-110 Complete blood count (CBC) with automate d white blood cell (WBC) differential - 01/25/20 15:57 Blood leukocytes automated count (number/volume) 20.1 10*3/uL 4.3-11.0 Blood erythrocytes automated count (number/volume) 3.87 10*6/uL 4.35-5.85 Venous blood hemoglobin measurement (mass/volume) 11.9 g/dL 13.3-17.7 Blood hematocrit (volume fraction) 36 % 40-54 Automated erythrocyte mean corpuscular volume 92 [ foz_us] 80-99 Automated erythrocyte mean corpuscular h emoglobin (mass per erythrocyte) 31 pg 25-34 Automated erythrocyte mean corpuscular h emoglobin concentration measurement (mass/volume) 33 g/dL 32-36 Automated erythrocyte distribution width ratio 13. 3 % 10.0- 14.5 Automated blood platelet count (count/volume) 308 10*3/uL 130-400 Automated blood platelet mean volume measurement 9.8 [foz_us] 7.4-10.4 Automated blood neutrophils/100 leukocytes 94 % 42-75 Automated blood lymphocytes/100 leukocytes 3 % 12-44 Blood monocytes/100 leukocytes 3 % 0-12 Automated blood eosinophils/100 leukocytes 0 % 0-10 Automated blood basophils/100 leukocytes 0 % 0-10 Blood neutrophils automated count (number/volume) 18.9 10*3 1.8-7.8 Blood lymphocytes automated count (number/volume) 0.6 10*3 1.0-4.0 Blood monocytes automated count (number/volume) 0. 5 10*3 0.0-1.0 Automated eosinophil count 0.0 10*3/uL 0 .0-0.3 Automated blood basophil count (count/volume) 0.0 10*3/uL 0.0-0.1 Blood lactic acid measurement (moles/vol ume) - 01/25/20 15:57 Blood lactic acid measurement (moles/volume) 1.88 mmol/L 0.50-2.00 Comprehensive metabolic panel - 01/25/20 15:57 Serum or plasma sodium measurement (moles/volume) 138 mmol/L 135-145 Serum or plasma potassium measurement (moles/volume) 4.6 mmol/L 3.6-5.0 Serum or plasma chloride measurement (moles/volume) 107 mmol/L 98-107 Carbon dioxide 22 mmol/L 21-32 Serum or plasma anion gap determination (moles/volume) 9 mmol/L 5-14 Serum or plasma urea nitrogen measurement (mass/volume ) 22 mg/dL 7-18 Serum or plasma creatinine measurement (mass/volume) 1.04 mg/dL 0.60-1.30 Serum or plasma urea nitrogen/creatinine mass ratio 21 NRG Serum or plasma creatinine measurement w ith calculation of estimated glomerular filtration rate > NRG Serum or plasma glucose measurement (mass/volume) 195 mg/dL 70-105 Serum or plasma calcium measurement (mass/volume) 7.5 mg/dL 8.5-10.1 Serum or plasma total bilirubin measurement (mass/volu me) 1.2 mg/dL 0.1-1.0 Serum or plasma alkaline phosphatase serina surement (enzymatic activity/volume) 90 U/L 40-136 Serum or plasma aspartate aminotransfera se measurement (enzymatic activity/volume) 172 U/L 5-34 Serum or plasma alanine aminotransferase measurement (enzymatic activity/volume) 135 U/L 0-55 Serum or plasma protein measurement (mass/volume) 5.7 g/dL 6.4-8.2 Serum or plasma albumin measurement (mass/volume) 2.6 g/dL 3.2-4.5 CALCIUM CORRECTED 8.6 mg/dL 8.5-10.1 Serum or plasma phosphate measurement (m ass/volume) - 01/25/20 15:57 Serum or plasma phosphate measurement (mass/volume) 6.4 mg/dL 2.3-4.7 Magnesium - 01/25/20 15:57 Magnesium 2.2 mg/dL 1.6-2.4 Manual absolute plasma cell count - 01/01 12/19 15:57 Blood monocytes/100 leukocytes 2 % NRG Manual blood segmented neutrophils/100 leukocytes 94 % NRG Blood band neutrophils/100 leukocytes 0 % NRG Manual blood lymphocytes/100 leukocytes 4 % NRG Manual eosinophils/100 leukocytes in nose 0 % NRG Manual blood basophils/100 leukocytes 0 % NRG Blood erythrocyte morphology finding identification NORMAL NRG PROCALCITONIN (PCT) - 01/25/20 15:57 PROCALCITONIN (PCT) 0.28 ng/mL <0.10 Fibrin D-dimer FEU measurement in platel et poor plasma (mass/volume) - 01/25/20 15:57 Fibrin D-dimer FEU measurement in platelet poor plasma (mass/volume) > ug/mL 0.00-0.49 Serum or plasma ferritin measurement (ma ss/volume) - 01/25/20 15:57 Serum or plasma ferritin measurement (mass/volume) 1517.3 % 32.0-356.0 Arterial blood gas measurement - 06/25/2 0 16:22 Blood pCO2 67 mm[Hg] 35-45 Blood pO2 70 mm[Hg] 79-93 Arterial blood bicarbonate measurement (moles/volume) 24 mmol/L 23-27 Arterial blood base excess by calculation -3.8 mmo l/L -2.5-2.5 Arterial blood oxygen saturation measurement 84 % 94-100 * Inhaled oxygen flow rate 40 NRG Arterial blood pH measurement with patient temperature correction 7.17 7.37-7.43 Arterial blood carbon dioxide, total measurement (mole s/volume) 25.8 mmol/L 21.0-31.0 Body site R RAD NRG Assessment of wrist artery patency prior to arterial p uncture YES-POS NRG Setting of ventilation mode YES NR G Measurement of body temperature 36.4 NRG Capillary blood glucose measurement by g lucometer (mass/volume) - 01/25/20 18:24 Capillary blood glucose measurement by glucometer (mas s/volume) 191 mg/dL 70-110 Methicillin resistant Staphylococcus aur eus (MRSA) screening culture - 01/25/20 20:03 Methicillin resistant Staphylococcus aureus (MRSA) scr eening culture NEG NRG Urine Legionella pneumophila antigen ass ay - 01/25/20 20:20 Urine Legionella pneumophila antigen assay Negativ e NRG Streptococcus pneumoniae antigen detecti on - 01/25/20 20:20 Streptococcus pneumoniae antigen detection Negativ e NRG Arterial blood gas measurement - 0 20:21 Blood pCO2 42 mm[Hg] 35-45 Blood pO2 61 mm[Hg] 79-93 Arterial blood bicarbonate measurement (moles/volume) 22 mmol/L 23-27 Arterial blood base excess by calculation -3.3 mmo l/L -2.5-2.5 Arterial blood oxygen saturation measurement 88 % 94-100 * Inhaled oxygen flow rate 40% NRG Arterial blood pH measurement with patient temperature correction 7.33 7.37-7.43 Arterial blood carbon dioxide, total measurement (mole s/volume) 23.3 mmol/L 21.0-31.0 Body site LEFT ART LINE NRG Assessment of wrist artery patency prior to arterial p uncture ART LINE NRG Setting of ventilation mode YES NR G Measurement of body temperature 35.7 NRG Arterial blood gas measurement - 0 03:49 Blood pCO2 45 mm[Hg] 35-45 Blood pO2 81 mm[Hg] 79-93 Arterial blood bicarbonate measurement (moles/volume) 23 mmol/L 23-27 Arterial blood base excess by calculation -2.0 mmo l/L -2.5-2.5 Arterial blood oxygen saturation measurement 94 % 94-100 * Inhaled oxygen flow rate 60% NRG Arterial blood pH measurement with patient temperature correction 7.33 7.37-7.43 Arterial blood carbon dioxide, total measurement (mole s/volume) 24.7 mmol/L 21.0-31.0 Body site RIGHT RADIAL NRG Assessment of wrist artery patency prior to arterial p uncture ART LINE NRG Setting of ventilation mode YES NR G Measurement of body temperature 36.0 NRG Complete blood count (CBC) with automate d white blood cell (WBC) differential - 01/26/20 03:50 Blood leukocytes automated count (number/volume) 11.9 10*3/uL 4.3-11.0 Blood erythrocytes automated count (number/volume) 3.75 10*6/uL 4.35-5.85 Venous blood hemoglobin measurement (mass/volume) 11.3 g/dL 13.3-17.7 Blood hematocrit (volume fraction) 35 % 40-54 Automated erythrocyte mean corpuscular volume 92 [ foz_us] 80-99 Automated erythrocyte mean corpuscular h emoglobin (mass per erythrocyte) 30 pg 25-34 Automated erythrocyte mean corpuscular h emoglobin concentration measurement (mass/volume) 33 g/dL 32-36 Automated erythrocyte distribution width ratio 13. 5 % 10.0- 14.5 Automated blood platelet count (count/volume) 284 10*3/uL 130-400 Automated blood platelet mean volume measurement 9.9 [foz_us] 7.4-10.4 Automated blood neutrophils/100 leukocytes 88 % 42-75 Automated blood lymphocytes/100 leukocytes 7 % 12-44 Blood monocytes/100 leukocytes 5 % 0-12 Automated blood eosinophils/100 leukocytes 0 % 0-10 Automated blood basophils/100 leukocytes 0 % 0-10 Blood neutrophils automated count (number/volume) 10.5 10*3 1.8-7.8 Blood lymphocytes automated count (number/volume) 0.8 10*3 1.0-4.0 Blood monocytes automated count (number/volume) 0. 6 10*3 0.0-1.0 Automated eosinophil count 0.0 10*3/uL 0 .0-0.3 Automated blood basophil count (count/volume) 0.0 10*3/uL 0.0-0.1 Comprehensive metabolic panel - 01/26/20 03:50 Serum or plasma sodium measurement (moles/volume) 140 mmol/L 135-145 Serum or plasma potassium measurement (moles/volume) 4.7 mmol/L 3.6-5.0 Serum or plasma chloride measurement (moles/volume) 109 mmol/L 98-107 Carbon dioxide 20 mmol/L 21-32 Serum or plasma anion gap determination (moles/volume) 11 mmol/L 5-14 Serum or plasma urea nitrogen measurement (mass/volume ) 24 mg/dL 7-18 Serum or plasma creatinine measurement (mass/volume) 0.99 mg/dL 0.60-1.30 Serum or plasma urea nitrogen/creatinine mass ratio 24 NRG Serum or plasma creatinine measurement w ith calculation of estimated glomerular filtration rate > NRG Serum or plasma glucose measurement (mass/volume) 154 mg/dL 70-105 Serum or plasma calcium measurement (mass/volume) 7.9 mg/dL 8.5-10.1 Serum or plasma total bilirubin measurement (mass/volu me) 0.5 mg/dL 0.1-1.0 Serum or plasma alkaline phosphatase serina surement (enzymatic activity/volume) 87 U/L 40-136 Serum or plasma aspartate aminotransfera se measurement (enzymatic activity/volume) 112 U/L 5-34 Serum or plasma alanine aminotransferase measurement (enzymatic activity/volume) 122 U/L 0-55 Serum or plasma protein measurement (mass/volume) 5.7 g/dL 6.4-8.2 Serum or plasma albumin measurement (mass/volume) 2.5 g/dL 3.2-4.5 CALCIUM CORRECTED 9.1 mg/dL 8.5-10.1 Serum or plasma phosphate measurement (m ass/volume) - 01/26/20 03:50 Serum or plasma phosphate measurement (mass/volume) 4.5 mg/dL 2.3-4.7 Magnesium - 01/26/20 03:50 Magnesium 2.3 mg/dL 1.6-2.4 Fibrin D-dimer FEU measurement in platel et poor plasma (mass/volume) - 01/26/20 03:50 Fibrin D-dimer FEU measurement in platelet poor plasma (mass/volume) > ug/mL 0.00-0.49 Serum or plasma C reactive protein measu rement (mass/volume) - 01/26/20 03:50 Serum or plasma C reactive protein measurement (mass/v olume) 28.05 mg/dL 0.00-0.50 Complete blood count (CBC) with automate d white blood cell (WBC) differential - 01/27/20 02:50 Blood leukocytes automated count (number/volume) 14.3 10*3/uL 4.3-11.0 Blood erythrocytes automated count (number/volume) 3.41 10*6/uL 4.35-5.85 Venous blood hemoglobin measurement (mass/volume) 10.3 g/dL 13.3-17.7 Blood hematocrit (volume fraction) 32 % 40-54 Automated erythrocyte mean corpuscular volume 93 [ foz_us] 80-99 Automated erythrocyte mean corpuscular h emoglobin (mass per erythrocyte) 30 pg 25-34 Automated erythrocyte mean corpuscular h emoglobin concentration measurement (mass/volume) 33 g/dL 32-36 Automated erythrocyte distribution width ratio 13. 8 % 10.0- 14.5 Automated blood platelet count (count/volume) 272 10*3/uL 130-400 Automated blood platelet mean volume measurement 10.3 [foz_us] 7.4-10.4 Automated blood neutrophils/100 leukocytes 89 % 42-75 Automated blood lymphocytes/100 leukocytes 5 % 12-44 Blood monocytes/100 leukocytes 6 % 0-12 Automated blood eosinophils/100 leukocytes 0 % 0-10 Automated blood basophils/100 leukocytes 0 % 0-10 Blood neutrophils automated count (number/volume) 12.7 10*3 1.8-7.8 Blood lymphocytes automated count (number/volume) 0.7 10*3 1.0-4.0 Blood monocytes automated count (number/volume) 0. 9 10*3 0.0-1.0 Automated eosinophil count 0.0 10*3/uL 0 .0-0.3 Automated blood basophil count (count/volume) 0.0 10*3/uL 0.0-0.1 Arterial blood gas measurement - 0 02:50 Blood pCO2 44 mm[Hg] 35-45 Blood pO2 75 mm[Hg] 79-93 Arterial blood bicarbonate measurement (moles/volume) 25 mmol/L 23-27 Arterial blood base excess by calculation 0.0 mmol /L -2.5-2.5 Arterial blood oxygen saturation measurement 92 % 94-100 * Inhaled oxygen flow rate 35% NRG Arterial blood pH measurement with patient temperature correction 7.37 7.37-7.43 Arterial blood carbon dioxide, total measurement (mole s/volume) 26.0 mmol/L 21.0-31.0 Body site RIGHT ART LINE NRG Assessment of wrist artery patency prior to arterial p uncture ART LINE NRG Setting of ventilation mode YES NR G Measurement of body temperature 36.9 NRG Comprehensive metabolic panel - 01/27/20 02:50 Serum or plasma sodium measurement (moles/volume) 142 mmol/L 135-145 Serum or plasma potassium measurement (moles/volume) 4.6 mmol/L 3.6-5.0 Serum or plasma chloride measurement (moles/volume) 112 mmol/L 98-107 Carbon dioxide 20 mmol/L 21-32 Serum or plasma anion gap determination (moles/volume) 10 mmol/L 5-14 Serum or plasma urea nitrogen measurement (mass/volume ) 34 mg/dL 7-18 Serum or plasma creatinine measurement (mass/volume) 1.04 mg/dL 0.60-1.30 Serum or plasma urea nitrogen/creatinine mass ratio 33 NRG Serum or plasma creatinine measurement w ith calculation of estimated glomerular filtration rate > NRG Serum or plasma glucose measurement (mass/volume) 138 mg/dL 70-105 Serum or plasma calcium measurement (mass/volume) 7.7 mg/dL 8.5-10.1 Serum or plasma total bilirubin measurement (mass/volu me) 0.3 mg/dL 0.1-1.0 Serum or plasma alkaline phosphatase serina surement (enzymatic activity/volume) 69 U/L 40-136 Serum or plasma aspartate aminotransfera se measurement (enzymatic activity/volume) 30 U/L 5-34 Serum or plasma alanine aminotransferase measurement (enzymatic activity/volume) 77 U/L 0-55 Serum or plasma protein measurement (mass/volume) 5.0 g/dL 6.4-8.2 Serum or plasma albumin measurement (mass/volume) 2.2 g/dL 3.2-4.5 CALCIUM CORRECTED 9.1 mg/dL 8.5-10.1 Serum or plasma phosphate measurement (m ass/volume) - 01/27/20 02:50 Serum or plasma phosphate measurement (mass/volume) 3.6 mg/dL 2.3-4.7 Magnesium - 01/27/20 02:50 Magnesium 2.4 mg/dL 1.6-2.4 Serum or plasma triglyceride measurement (mass/volume) - 01/27/20 02:50 Serum or plasma triglyceride measurement (mass/volume) 202 mg/dL <150 Capillary blood glucose measurement by g lucometer (mass/volume) - 01/27/20 17:41 Capillary blood glucose measurement by glucometer (mas s/volume) 122 mg/dL 70-110 Serum or plasma potassium measurement (m oles/volume) - 01/27/20 19:48 Serum or plasma potassium measurement (moles/volume) 4.6 mmol/L 3.6-5.0 Magnesium - 01/27/20 19:48 Magnesium 2.2 mg/dL 1.6-2.4 Capillary blood glucose measurement by g lucometer (mass/volume) - 01/27/20 22:29 Capillary blood glucose measurement by glucometer (mas s/volume) 111 mg/dL 70-110 Complete blood count (CBC) with automate d white blood cell (WBC) differential - 01/28/20 02:02 Blood leukocytes automated count (number/volume) 12.0 10*3/uL 4.3-11.0 Blood erythrocytes automated count (number/volume) 3.48 10*6/uL 4.35-5.85 Venous blood hemoglobin measurement (mass/volume) 10.5 g/dL 13.3-17.7 Blood hematocrit (volume fraction) 32 % 40-54 Automated erythrocyte mean corpuscular volume 93 [ foz_us] 80-99 Automated erythrocyte mean corpuscular h emoglobin (mass per erythrocyte) 30 pg 25-34 Automated erythrocyte mean corpuscular h emoglobin concentration measurement (mass/volume) 33 g/dL 32-36 Automated erythrocyte distribution width ratio 13. 7 % 10.0- 14.5 Automated blood platelet count (count/volume) 286 10*3/uL 130-400 Automated blood platelet mean volume measurement 10.0 [foz_us] 7.4-10.4 Automated blood neutrophils/100 leukocytes 83 % 42-75 Automated blood lymphocytes/100 leukocytes 9 % 12-44 Blood monocytes/100 leukocytes 6 % 0-12 Automated blood eosinophils/100 leukocytes 1 % 0-10 Automated blood basophils/100 leukocytes 0 % 0-10 Blood neutrophils automated count (number/volume) 10.0 10*3 1.8-7.8 Blood lymphocytes automated count (number/volume) 1.1 10*3 1.0-4.0 Blood monocytes automated count (number/volume) 0. 8 10*3 0.0-1.0 Automated eosinophil count 0.1 10*3/uL 0 .0-0.3 Automated blood basophil count (count/volume) 0.0 10*3/uL 0.0-0.1 Arterial blood gas measurement - 0 02:02 Blood pCO2 38 mm[Hg] 35-45 Blood pO2 67 mm[Hg] 79-93 Arterial blood bicarbonate measurement (moles/volume) 25 mmol/L 23-27 Arterial blood base excess by calculation 0.6 mmol /L -2.5-2.5 Arterial blood oxygen saturation measurement 89 % 94-100 * Inhaled oxygen flow rate 50% NRG Arterial blood pH measurement with patient temperature correction 7.42 7.37-7.43 Arterial blood carbon dioxide, total measurement (mole s/volume) 25.6 mmol/L 21.0-31.0 Body site RT ART LINE NRG Assessment of wrist artery patency prior to arterial p uncture ART LINE NRG Setting of ventilation mode YES NR G Measurement of body temperature 37.1 NRG Comprehensive metabolic panel - 01/28/20 02:02 Serum or plasma sodium measurement (moles/volume) 140 mmol/L 135-145 Serum or plasma potassium measurement (moles/volume) 4.6 mmol/L 3.6-5.0 Serum or plasma chloride measurement (moles/volume) 111 mmol/L 98-107 Carbon dioxide 21 mmol/L 21-32 Serum or plasma anion gap determination (moles/volume) 8 mmol/L 5-14 Serum or plasma urea nitrogen measurement (mass/volume ) 33 mg/dL 7-18 Serum or plasma creatinine measurement (mass/volume) 0.88 mg/dL 0.60-1.30 Serum or plasma urea nitrogen/creatinine mass ratio 38 NRG Serum or plasma creatinine measurement w ith calculation of estimated glomerular filtration rate > NRG Serum or plasma glucose measurement (mass/volume) 115 mg/dL 70-105 Serum or plasma calcium measurement (mass/volume) 7.5 mg/dL 8.5-10.1 Serum or plasma total bilirubin measurement (mass/volu me) 0.3 mg/dL 0.1-1.0 Serum or plasma alkaline phosphatase serina surement (enzymatic activity/volume) 68 U/L 40-136 Serum or plasma aspartate aminotransfera se measurement (enzymatic activity/volume) 22 U/L 5-34 Serum or plasma alanine aminotransferase measurement (enzymatic activity/volume) 55 U/L 0-55 Serum or plasma protein measurement (mass/volume) 4.8 g/dL 6.4-8.2 Serum or plasma albumin measurement (mass/volume) 2.2 g/dL 3.2-4.5 CALCIUM CORRECTED 8.9 mg/dL 8.5-10.1 Serum or plasma phosphate measurement (m ass/volume) - 01/28/20 02:02 Serum or plasma phosphate measurement (mass/volume) 3.0 mg/dL 2.3-4.7 Magnesium - 01/28/20 02:02 Magnesium 2.1 mg/dL 1.6-2.4 Capillary blood glucose measurement by g lucometer (mass/volume) - 01/28/20 12:05 Capillary blood glucose measurement by glucometer (mas s/volume) 118 mg/dL 70-110 Capillary blood glucose measurement by g lucometer (mass/volume) - 01/28/20 18:17 Capillary blood glucose measurement by glucometer (mas s/volume) 106 mg/dL 70-110 Capillary blood glucose measurement by g lucometer (mass/volume) - 01/29/20 00:50 Capillary blood glucose measurement by glucometer (mas s/volume) 167 mg/dL 70-110 Arterial blood gas measurement - 0 03:18 Blood pCO2 34 mm[Hg] 35-45 Blood pO2 58 mm[Hg] 79-93 Arterial blood bicarbonate measurement (moles/volume) 24 mmol/L 23-27 Arterial blood base excess by calculation -0.1 mmo l/L -2.5-2.5 Arterial blood oxygen saturation measurement 88 % 94-100 * Inhaled oxygen flow rate 40% NRG Arterial blood pH measurement with patient temperature correction 7.45 7.37-7.43 Arterial blood carbon dioxide, total measurement (mole s/volume) 24.7 mmol/L 21.0-31.0 Body site RIGHT RADIAL NRG Assessment of wrist artery patency prior to arterial p uncture YES-POS NRG Setting of ventilation mode YES NR G Measurement of body temperature 36.0 NRG Comprehensive metabolic panel - 01/29/20 03:22 Serum or plasma sodium measurement (moles/volume) 138 mmol/L 135-145 Serum or plasma potassium measurement (moles/volume) 4.4 mmol/L 3.6-5.0 Serum or plasma chloride measurement (moles/volume) 110 mmol/L 98-107 Carbon dioxide 19 mmol/L 21-32 Serum or plasma anion gap determination (moles/volume) 9 mmol/L 5-14 Serum or plasma urea nitrogen measurement (mass/volume ) 31 mg/dL 7-18 Serum or plasma creatinine measurement (mass/volume) 0.85 mg/dL 0.60-1.30 Serum or plasma urea nitrogen/creatinine mass ratio 36 NRG Serum or plasma creatinine measurement w ith calculation of estimated glomerular filtration rate > NRG Serum or plasma glucose measurement (mass/volume) 145 mg/dL 70-105 Serum or plasma calcium measurement (mass/volume) 7.4 mg/dL 8.5-10.1 Serum or plasma total bilirubin measurement (mass/volu me) 0.3 mg/dL 0.1-1.0 Serum or plasma alkaline phosphatase serina surement (enzymatic activity/volume) 71 U/L 40-136 Serum or plasma aspartate aminotransfera se measurement (enzymatic activity/volume) 32 U/L 5-34 Serum or plasma alanine aminotransferase measurement (enzymatic activity/volume) 49 U/L 0-55 Serum or plasma protein measurement (mass/volume) 4.8 g/dL 6.4-8.2 Serum or plasma albumin measurement (mass/volume) 2.1 g/dL 3.2-4.5 CALCIUM CORRECTED 8.9 mg/dL 8.5-10.1 Serum or plasma phosphate measurement (m ass/volume) - 01/29/20 03:22 Serum or plasma phosphate measurement (mass/volume) 3.4 mg/dL 2.3-4.7 Complete blood count (CBC) with automate d white blood cell (WBC) differential - 01/29/20 03:22 Blood leukocytes automated count (number/volume) 13.5 10*3/uL 4.3-11.0 Blood erythrocytes automated count (number/volume) 3.46 10*6/uL 4.35-5.85 Venous blood hemoglobin measurement (mass/volume) 10.2 g/dL 13.3-17.7 Blood hematocrit (volume fraction) 32 % 40-54 Automated erythrocyte mean corpuscular volume 92 [ foz_us] 80-99 Automated erythrocyte mean corpuscular h emoglobin (mass per erythrocyte) 29 pg 25-34 Automated erythrocyte mean corpuscular h emoglobin concentration measurement (mass/volume) 32 g/dL 32-36 Automated erythrocyte distribution width ratio 13. 8 % 10.0- 14.5 Automated blood platelet count (count/volume) 281 10*3/uL 130-400 Automated blood platelet mean volume measurement 10.5 [foz_us] 7.4-10.4 Automated blood neutrophils/100 leukocytes 87 % 42-75 Automated blood lymphocytes/100 leukocytes 6 % 12-44 Blood monocytes/100 leukocytes 6 % 0-12 Automated blood eosinophils/100 leukocytes 0 % 0-10 Automated blood basophils/100 leukocytes 0 % 0-10 Blood neutrophils automated count (number/volume) 11.8 10*3 1.8-7.8 Blood lymphocytes automated count (number/volume) 0.8 10*3 1.0-4.0 Blood monocytes automated count (number/volume) 0. 9 10*3 0.0-1.0 Automated eosinophil count 0.0 10*3/uL 0 .0-0.3 Automated blood basophil count (count/volume) 0.0 10*3/uL 0.0-0.1 Magnesium - 01/29/20 03:22 Magnesium 2.0 mg/dL 1.6-2.4 Serum or plasma triglyceride measurement (mass/volume) - 01/29/20 03:22 Serum or plasma triglyceride measurement (mass/volume) 163 mg/dL <150 Serum or plasma lithium measurement (mol es/volume) - 01/29/20 03:22 BNP PT 214.4 pg/mL <100.0 PROCALCITONIN (PCT) - 01/29/20 03:22 PROCALCITONIN (PCT) 0.22 ng/mL <0.10 Sputum Gram stain - 01/29/20 05:00 Sputum Gram stain RARE YEAST NRG Bacterial sputum culture - 01/29/20 05:0 0 QUANTITY OF GROWTH Scant Growth NRG Bacterial sputum culture [id number] NRG RAPID ID PRELIM RAPID ID TEST AT [facility] 01/29 8:25 NRG ID CONFIRMATION RML CONFIRMED ID 01/29 12:30 NRG Arterial blood gas measurement - 0 06:03 Blood pCO2 38 mm[Hg] 35-45 Blood pO2 67 mm[Hg] 79-93 Arterial blood bicarbonate measurement (moles/volume) 24 mmol/L 23-27 Arterial blood base excess by calculation 0.1 mmol /L -2.5-2.5 Arterial blood oxygen saturation measurement 92 % 94-100 * Inhaled oxygen flow rate 50% NRG Arterial blood pH measurement with patient temperature correction 7.42 7.37-7.43 Arterial blood carbon dioxide, total measurement (mole s/volume) 25.4 mmol/L 21.0-31.0 Body site RIGHT RADIAL NRG Assessment of wrist artery patency prior to arterial p uncture YES-POS NRG Setting of ventilation mode YES NR G Measurement of body temperature 36.0 NRG Fibrin D-dimer FEU measurement in platel et poor plasma (mass/volume) - 01/29/20 07:45 Fibrin D-dimer FEU measurement in platelet poor plasma (mass/volume) 4.73 ug/mL 0.00-0.49 Serum or plasma ferritin measurement (ma ss/volume) - 01/29/20 07:45 Serum or plasma ferritin measurement (mass/volume) 482.5 % 32.0-356.0 Capillary blood glucose measurement by g lucometer (mass/volume) - 01/29/20 13:29 Capillary blood glucose measurement by glucometer (mas s/volume) 133 mg/dL 70-110 Capillary blood glucose measurement by g lucometer (mass/volume) - 01/29/20 18:00 Capillary blood glucose measurement by glucometer (mas s/volume) 142 mg/dL 70-110 Capillary blood glucose measurement by g lucometer (mass/volume) - 01/29/20 22:15 Capillary blood glucose measurement by glucometer (mas s/volume) 105 mg/dL 70-110 Complete blood count (CBC) with automate d white blood cell (WBC) differential - 01/30/20 03:26 Blood leukocytes automated count (number/volume) 13.5 10*3/uL 4.3-11.0 Blood erythrocytes automated count (number/volume) 3.50 10*6/uL 4.35-5.85 Venous blood hemoglobin measurement (mass/volume) 10.7 g/dL 13.3-17.7 Blood hematocrit (volume fraction) 32 % 40-54 Automated erythrocyte mean corpuscular volume 92 [ foz_us] 80-99 Automated erythrocyte mean corpuscular h emoglobin (mass per erythrocyte) 31 pg 25-34 Automated erythrocyte mean corpuscular h emoglobin concentration measurement (mass/volume) 33 g/dL 32-36 Automated erythrocyte distribution width ratio 13. 5 % 10.0- 14.5 Automated blood platelet count (count/volume) 311 10*3/uL 130-400 Automated blood platelet mean volume measurement 10.7 [foz_us] 7.4-10.4 Automated blood neutrophils/100 leukocytes 87 % 42-75 Automated blood lymphocytes/100 leukocytes 6 % 12-44 Blood monocytes/100 leukocytes 6 % 0-12 Automated blood eosinophils/100 leukocytes 0 % 0-10 Automated blood basophils/100 leukocytes 0 % 0-10 Blood neutrophils automated count (number/volume) 11.7 10*3 1.8-7.8 Blood lymphocytes automated count (number/volume) 0.9 10*3 1.0-4.0 Blood monocytes automated count (number/volume) 0. 8 10*3 0.0-1.0 Automated eosinophil count 0.1 10*3/uL 0 .0-0.3 Automated blood basophil count (count/volume) 0.0 10*3/uL 0.0-0.1 Comprehensive metabolic panel - 01/30/20 03:26 Serum or plasma sodium measurement (moles/volume) 138 mmol/L 135-145 Serum or plasma potassium measurement (moles/volume) 4.4 mmol/L 3.6-5.0 Serum or plasma chloride measurement (moles/volume) 109 mmol/L 98-107 Carbon dioxide 22 mmol/L 21-32 Serum or plasma anion gap determination (moles/volume) 7 mmol/L 5-14 Serum or plasma urea nitrogen measurement (mass/volume ) 25 mg/dL 7-18 Serum or plasma creatinine measurement (mass/volume) 0.76 mg/dL 0.60-1.30 Serum or plasma urea nitrogen/creatinine mass ratio 33 NRG Serum or plasma creatinine measurement w ith calculation of estimated glomerular filtration rate > NRG Serum or plasma glucose measurement (mass/volume) 125 mg/dL 70-105 Serum or plasma calcium measurement (mass/volume) 7.5 mg/dL 8.5-10.1 Serum or plasma total bilirubin measurement (mass/volu me) 0.3 mg/dL 0.1-1.0 Serum or plasma alkaline phosphatase serina surement (enzymatic activity/volume) 64 U/L 40-136 Serum or plasma aspartate aminotransfera se measurement (enzymatic activity/volume) 30 U/L 5-34 Serum or plasma alanine aminotransferase measurement (enzymatic activity/volume) 46 U/L 0-55 Serum or plasma protein measurement (mass/volume) 4.9 g/dL 6.4-8.2 Serum or plasma albumin measurement (mass/volume) 2.1 g/dL 3.2-4.5 CALCIUM CORRECTED 9.0 mg/dL 8.5-10.1 Serum or plasma phosphate measurement (m ass/volume) - 01/30/20 03:26 Serum or plasma phosphate measurement (mass/volume) 3.5 mg/dL 2.3-4.7 Magnesium - 01/30/20 03:26 Magnesium 2.1 mg/dL 1.6-2.4 Arterial blood gas measurement - 0 03:27 Blood pCO2 43 mm[Hg] 35-45 Blood pO2 70 mm[Hg] 79-93 Arterial blood bicarbonate measurement (moles/volume) 26 mmol/L 23-27 Arterial blood base excess by calculation 1.3 mmol /L -2.5-2.5 Arterial blood oxygen saturation measurement 91 % 94-100 * Inhaled oxygen flow rate 50% NRG Arterial blood pH measurement with patient temperature correction 7.39 7.37-7.43 Arterial blood carbon dioxide, total measurement (mole s/volume) 27.0 mmol/L 21.0-31.0 Body site RIGHT RADIAL NRG Assessment of wrist artery patency prior to arterial p uncture ART LINE NRG Setting of ventilation mode YES NR G Measurement of body temperature 36.9 NRG Capillary blood glucose measurement by g lucometer (mass/volume) - 01/30/20 11:27 Capillary blood glucose measurement by glucometer (mas s/volume) 126 mg/dL 70-110 Capillary blood glucose measurement by g lucometer (mass/volume) - 01/30/20 17:45 Capillary blood glucose measurement by glucometer (mas s/volume) 108 mg/dL 70-110 Capillary blood glucose measurement by g lucometer (mass/volume) - 01/30/20 23:03 Capillary blood glucose measurement by glucometer (mas s/volume) 101 mg/dL 70-110 Arterial blood gas measurement - 0 02:07 Blood pCO2 44 mm[Hg] 35-45 Blood pO2 46 mm[Hg] 79-93 Arterial blood bicarbonate measurement (moles/volume) 27 mmol/L 23-27 Arterial blood base excess by calculation 3.5 mmol /L -2.5-2.5 Arterial blood oxygen saturation measurement 67 % 94-100 * Inhaled oxygen flow rate 25% NRG Arterial blood pH measurement with patient temperature correction 7.42 7.37-7.43 Arterial blood carbon dioxide, total measurement (mole s/volume) 28.7 mmol/L 21.0-31.0 Body site RIGHT RADIAL NRG Assessment of wrist artery patency prior to arterial p uncture ART LINE NRG Setting of ventilation mode YES NR G Measurement of body temperature 38.0 NRG Complete blood count (CBC) with automate d white blood cell (WBC) differential - 01/31/20 02:07 Blood leukocytes automated count (number/volume) 18.6 10*3/uL 4.3-11.0 Blood erythrocytes automated count (number/volume) 3.93 10*6/uL 4.35-5.85 Venous blood hemoglobin measurement (mass/volume) 11.7 g/dL 13.3-17.7 Blood hematocrit (volume fraction) 36 % 40-54 Automated erythrocyte mean corpuscular volume 92 [ foz_us] 80-99 Automated erythrocyte mean corpuscular h emoglobin (mass per erythrocyte) 30 pg 25-34 Automated erythrocyte mean corpuscular h emoglobin concentration measurement (mass/volume) 33 g/dL 32-36 Automated erythrocyte distribution width ratio 13. 9 % 10.0- 14.5 Automated blood platelet count (count/volume) 395 10*3/uL 130-400 Automated blood platelet mean volume measurement 10.8 [foz_us] 7.4-10.4 Automated blood neutrophils/100 leukocytes 77 % 42-75 Automated blood lymphocytes/100 leukocytes 10 % 12-44 Blood monocytes/100 leukocytes 12 % 0-12 Automated blood eosinophils/100 leukocytes 1 % 0-10 Automated blood basophils/100 leukocytes 0 % 0-10 Blood neutrophils automated count (number/volume) 14.4 10*3 1.8-7.8 Blood lymphocytes automated count (number/volume) 1.8 10*3 1.0-4.0 Blood monocytes automated count (number/volume) 2. 2 10*3 0.0-1.0 Automated eosinophil count 0.3 10*3/uL 0 .0-0.3 Automated blood basophil count (count/volume) 0.0 10*3/uL 0.0-0.1 Comprehensive metabolic panel - 01/31/20 02:07 Serum or plasma sodium measurement (moles/volume) 138 mmol/L 135-145 Serum or plasma potassium measurement (moles/volume) 3.8 mmol/L 3.6-5.0 Serum or plasma chloride measurement (moles/volume) 107 mmol/L 98-107 Carbon dioxide 22 mmol/L 21-32 Serum or plasma anion gap determination (moles/volume) 9 mmol/L 5-14 Serum or plasma urea nitrogen measurement (mass/volume ) 30 mg/dL 7-18 Serum or plasma creatinine measurement (mass/volume) 0.79 mg/dL 0.60-1.30 Serum or plasma urea nitrogen/creatinine mass ratio 38 NRG Serum or plasma creatinine measurement w ith calculation of estimated glomerular filtration rate > NRG Serum or plasma glucose measurement (mass/volume) 98 mg/dL 70-105 Serum or plasma calcium measurement (mass/volume) 7.6 mg/dL 8.5-10.1 Serum or plasma total bilirubin measurement (mass/volu me) 0.3 mg/dL 0.1-1.0 Serum or plasma alkaline phosphatase serina surement (enzymatic activity/volume) 77 U/L 40-136 Serum or plasma aspartate aminotransfera se measurement (enzymatic activity/volume) 28 U/L 5-34 Serum or plasma alanine aminotransferase measurement (enzymatic activity/volume) 44 U/L 0-55 Serum or plasma protein measurement (mass/volume) 5.3 g/dL 6.4-8.2 Serum or plasma albumin measurement (mass/volume) 2.3 g/dL 3.2-4.5 CALCIUM CORRECTED 9.0 mg/dL 8.5-10.1 Serum or plasma phosphate measurement (m ass/volume) - 01/31/20 02:07 Serum or plasma phosphate measurement (mass/volume) 3.1 mg/dL 2.3-4.7 Magnesium - 01/31/20 02:07 Magnesium 2.1 mg/dL 1.6-2.4 Serum or plasma lithium measurement (mol es/volume) - 01/31/20 02:07 BNP PT 140.8 pg/mL <100.0 PROCALCITONIN (PCT) - 01/31/20 02:07 PROCALCITONIN (PCT) 0.10 ng/mL <0.10 Blood lactic acid measurement (moles/vol ume) - 01/31/20 06:54 Blood lactic acid measurement (moles/volume) 0.49 mmol/L 0.50-2.00 Bacterial blood culture - 01/31/20 06:54 Bacterial blood culture NG NRG Bacterial blood culture - 01/31/20 06:54 Bacterial blood culture NG NRG Bacterial catheter tip culture - 0 07:15 Bacterial catheter tip culture NG NRG Sputum Gram stain - 01/31/20 08:06 Sputum Gram stain No bacteria seen NRG Bacterial sputum culture - 01/31/20 08:0 6 QUANTITY OF GROWTH FEW NRG Bacterial sputum culture [id number] NRG SUSCEPTIBILITY SUSCEPTIBILITY REPORTED 02/02 07:40 NRG MRSA SCREEN NEW NAME: KLEBSIELLA AEROGENES NRG RAPID ID YEAST REPORTED BY [facility] 01/31 08:30 NRG ID CONFIRMATION YEAST CONFIRMED NRG Dirithromycin susceptibility test by dis k diffusion - 01/31/20 08:06 Gentamicin susceptibility test by minimum inhibitory c oncentration <= NRG Trimethoprim/sulfamethoxazole susceptibi lity test by minimum inhibitoryconcentration <= NRG Levofloxacin susceptibility test by minimum inhibitory concentration <= NRG Ampicillin susceptibility test by minimum inhibitory c oncentration > NRG Cefazolin susceptibility test by minimum inhibitory co ncentration > NRG Ceftriaxone susceptibility test by minimum inhibitory concentration <= NRG Piperacillin/tazobactam susceptibility t est by minimum inhibitory concentration = NRG Ciprofloxacin susceptibility test by minimum inhibitor y concentration <= NRG Meropenem susceptibility test by minimum inhibitory co ncentration <= NRG Amoxicillin and clavulanate potassium susc CESARIO > NRG Capillary blood glucose measurement by g lucometer (mass/volume) - 01/31/20 12:25 Capillary blood glucose measurement by glucometer (mas s/volume) 108 mg/dL 70-110 Capillary blood glucose measurement by g lucometer (mass/volume) - 01/31/20 17:23 Capillary blood glucose measurement by glucometer (mas s/volume) 74 mg/dL 70-110 Complete urinalysis with reflex to cultu re - 01/31/20 18:45 Urine color determination YELLOW NRG Urine clarity determination CLEAR NR G Urine pH measurement by test strip 6.0 5-9 Specific gravity of urine by test strip 1.025 1.016-1.022 Urine protein assay by test strip, semi-quantitative NEGATIVE NEGATIVE Urine glucose detection by automated test strip NE GATIVE NEGATIVE Erythrocytes detection in urine sediment by light micr oscopy NEGATIVE NEGATIVE Urine ketones detection by automated test strip NE GATIVE NEGATIVE Urine nitrite detection by test strip NEGATIVE NEGATIVE Urine total bilirubin detection by test strip NEGA TIVE NEGATIVE Urine urobilinogen measurement by automated test strip (mass/volume) 1.0 mg/dL < = 1.0 Urine leukocyte esterase detection by dipstick NEG ATIVE NEGATIVE Automated urine sediment erythrocyte cou nt by microscopy (number/high power field) NONE NRG Automated urine sediment leukocyte count by microscopy (number/high power field) NONE NRG Bacteria detection in urine sediment by light microsco py NEGATIVE NRG Squamous epithelial cells detection in u rine sediment by light microscopy RARE NRG Crystals detection in urine sediment by light microsco py NONE NRG Casts detection in urine sediment by light microscopy NONE NRG Mucus detection in urine sediment by light microscopy NEGATIVE NRG Complete urinalysis with reflex to culture NO NRG Capillary blood glucose measurement by g lucometer (mass/volume) - 01/31/20 22:33 Capillary blood glucose measurement by glucometer (mas s/volume) 88 mg/dL 70-110 Arterial blood gas measurement - 0 02:22 Blood pCO2 47 mm[Hg] 35-45 Blood pO2 97 mm[Hg] 79-93 Arterial blood bicarbonate measurement (moles/volume) 27 mmol/L 23-27 Arterial blood base excess by calculation 2.1 mmol /L -2.5-2.5 Arterial blood oxygen saturation measurement 97 % 94-100 * Inhaled oxygen flow rate AC NRG Arterial blood pH measurement with patient temperature correction 7.37 7.37-7.43 Arterial blood carbon dioxide, total measurement (mole s/volume) 28.5 mmol/L 21.0-31.0 Body site RT RADIAL NRG Assessment of wrist artery patency prior to arterial p uncture YES-POS NRG Setting of ventilation mode YES NR G Measurement of body temperature 36.3 NRG Complete blood count (CBC) with automate d white blood cell (WBC) differential - 02/01/20 02:22 Blood leukocytes automated count (number/volume) 11.7 10*3/uL 4.3-11.0 Blood erythrocytes automated count (number/volume) 3.53 10*6/uL 4.35-5.85 Venous blood hemoglobin measurement (mass/volume) 10.5 g/dL 13.3-17.7 Blood hematocrit (volume fraction) 33 % 40-54 Automated erythrocyte mean corpuscular volume 94 [ foz_us] 80-99 Automated erythrocyte mean corpuscular h emoglobin (mass per erythrocyte) 30 pg 25-34 Automated erythrocyte mean corpuscular h emoglobin concentration measurement (mass/volume) 32 g/dL 32-36 Automated erythrocyte distribution width ratio 14. 1 % 10.0- 14.5 Automated blood platelet count (count/volume) 338 10*3/uL 130-400 Automated blood platelet mean volume measurement 10.4 [foz_us] 7.4-10.4 Automated blood neutrophils/100 leukocytes 82 % 42-75 Automated blood lymphocytes/100 leukocytes 7 % 12-44 Blood monocytes/100 leukocytes 9 % 0-12 Automated blood eosinophils/100 leukocytes 2 % 0-10 Automated blood basophils/100 leukocytes 0 % 0-10 Blood neutrophils automated count (number/volume) 9.5 10*3 1.8-7.8 Blood lymphocytes automated count (number/volume) 0.9 10*3 1.0-4.0 Blood monocytes automated count (number/volume) 1. 1 10*3 0.0-1.0 Automated eosinophil count 0.2 10*3/uL 0 .0-0.3 Automated blood basophil count (count/volume) 0.0 10*3/uL 0.0-0.1 Comprehensive metabolic panel - 02/01/20 02:22 Serum or plasma sodium measurement (moles/volume) 140 mmol/L 135-145 Serum or plasma potassium measurement (moles/volume) 4.0 mmol/L 3.6-5.0 Serum or plasma chloride measurement (moles/volume) 108 mmol/L 98-107 Carbon dioxide 22 mmol/L 21-32 Serum or plasma anion gap determination (moles/volume) 10 mmol/L 5-14 Serum or plasma urea nitrogen measurement (mass/volume ) 23 mg/dL 7-18 Serum or plasma creatinine measurement (mass/volume) 0.71 mg/dL 0.60-1.30 Serum or plasma urea nitrogen/creatinine mass ratio 32 NRG Serum or plasma creatinine measurement w ith calculation of estimated glomerular filtration rate > NRG Serum or plasma glucose measurement (mass/volume) 94 mg/dL 70-105 Serum or plasma calcium measurement (mass/volume) 7.7 mg/dL 8.5-10.1 Serum or plasma total bilirubin measurement (mass/volu me) 0.4 mg/dL 0.1-1.0 Serum or plasma alkaline phosphatase serina surement (enzymatic activity/volume) 67 U/L 40-136 Serum or plasma aspartate aminotransfera se measurement (enzymatic activity/volume) 46 U/L 5-34 Serum or plasma alanine aminotransferase measurement (enzymatic activity/volume) 55 U/L 0-55 Serum or plasma protein measurement (mass/volume) 5.0 g/dL 6.4-8.2 Serum or plasma albumin measurement (mass/volume) 2.1 g/dL 3.2-4.5 CALCIUM CORRECTED 9.2 mg/dL 8.5-10.1 Serum or plasma phosphate measurement (m ass/volume) - 02/01/20 02:22 Serum or plasma phosphate measurement (mass/volume) 3.4 mg/dL 2.3-4.7 Magnesium - 02/01/20 02:22 Magnesium 2.5 mg/dL 1.6-2.4 Capillary blood glucose measurement by g lucometer (mass/volume) - 02/01/20 11:43 Capillary blood glucose measurement by glucometer (mas s/volume) 96 mg/dL 70-110 Capillary blood glucose measurement by g lucometer (mass/volume) - 02/01/20 17:23 Capillary blood glucose measurement by glucometer (mas s/volume) 106 mg/dL 70-110 Capillary blood glucose measurement by g lucometer (mass/volume) - 02/01/20 22:57 Capillary blood glucose measurement by glucometer (mas s/volume) 98 mg/dL 70-110 Complete blood count (CBC) with automate d white blood cell (WBC) differential - 02/02/20 02:06 Blood leukocytes automated count (number/volume) 13.2 10*3/uL 4.3-11.0 Blood erythrocytes automated count (number/volume) 3.49 10*6/uL 4.35-5.85 Venous blood hemoglobin measurement (mass/volume) 10.6 g/dL 13.3-17.7 Blood hematocrit (volume fraction) 33 % 40-54 Automated erythrocyte mean corpuscular volume 94 [ foz_us] 80-99 Automated erythrocyte mean corpuscular h emoglobin (mass per erythrocyte) 30 pg 25-34 Automated erythrocyte mean corpuscular h emoglobin concentration measurement (mass/volume) 32 g/dL 32-36 Automated erythrocyte distribution width ratio 13. 9 % 10.0- 14.5 Automated blood platelet count (count/volume) 344 10*3/uL 130-400 Automated blood platelet mean volume measurement 10.4 [foz_us] 7.4-10.4 Automated blood neutrophils/100 leukocytes 84 % 42-75 Automated blood lymphocytes/100 leukocytes 5 % 12-44 Blood monocytes/100 leukocytes 10 % 0-12 Automated blood eosinophils/100 leukocytes 1 % 0-10 Automated blood basophils/100 leukocytes 0 % 0-10 Blood neutrophils automated count (number/volume) 11.2 10*3 1.8-7.8 Blood lymphocytes automated count (number/volume) 0.6 10*3 1.0-4.0 Blood monocytes automated count (number/volume) 1. 3 10*3 0.0-1.0 Automated eosinophil count 0.1 10*3/uL 0 .0-0.3 Automated blood basophil count (count/volume) 0.0 10*3/uL 0.0-0.1 Arterial blood gas measurement - 02/01/ 0 02:06 Blood pCO2 56 mm[Hg] 35-45 Blood pO2 136 mm[Hg] 79-93 Arterial blood bicarbonate measurement (moles/volume) 29 mmol/L 23-27 Arterial blood base excess by calculation 3.1 mmol /L -2.5-2.5 Arterial blood oxygen saturation measurement 99 % 94-100 * Inhaled oxygen flow rate 75 NRG Arterial blood pH measurement with patient temperature correction 7.33 7.37-7.43 Arterial blood carbon dioxide, total measurement (mole s/volume) 30.6 mmol/L 21.0-31.0 Body site RIGHT ARTLINE NRG Assessment of wrist artery patency prior to arterial p uncture POSITIVE NRG Setting of ventilation mode YES NR G Measurement of body temperature 36.8 NRG Comprehensive metabolic panel - 02/02/20 02:06 Serum or plasma sodium measurement (moles/volume) 141 mmol/L 135-145 Serum or plasma potassium measurement (moles/volume) 4.2 mmol/L 3.6-5.0 Serum or plasma chloride measurement (moles/volume) 108 mmol/L 98-107 Carbon dioxide 25 mmol/L 21-32 Serum or plasma anion gap determination (moles/volume) 8 mmol/L 5-14 Serum or plasma urea nitrogen measurement (mass/volume ) 22 mg/dL 7-18 Serum or plasma creatinine measurement (mass/volume) 0.67 mg/dL 0.60-1.30 Serum or plasma urea nitrogen/creatinine mass ratio 33 NRG Serum or plasma creatinine measurement w ith calculation of estimated glomerular filtration rate > NRG Serum or plasma glucose measurement (mass/volume) 97 mg/dL 70-105 Serum or plasma calcium measurement (mass/volume) 7.7 mg/dL 8.5-10.1 Serum or plasma total bilirubin measurement (mass/volu me) 0.6 mg/dL 0.1-1.0 Serum or plasma alkaline phosphatase serina surement (enzymatic activity/volume) 60 U/L 40-136 Serum or plasma aspartate aminotransfera se measurement (enzymatic activity/volume) 27 U/L 5-34 Serum or plasma alanine aminotransferase measurement (enzymatic activity/volume) 48 U/L 0-55 Serum or plasma protein measurement (mass/volume) 5.1 g/dL 6.4-8.2 Serum or plasma albumin measurement (mass/volume) 2.1 g/dL 3.2-4.5 CALCIUM CORRECTED 9.2 mg/dL 8.5-10.1 Serum or plasma phosphate measurement (m ass/volume) - 02/02/20 02:06 Serum or plasma phosphate measurement (mass/volume) 2.8 mg/dL 2.3-4.7 Magnesium - 02/02/20 02:06 Magnesium 2.1 mg/dL 1.6-2.4 Capillary blood glucose measurement by g lucometer (mass/volume) - 02/02/20 05:56 Capillary blood glucose measurement by glucometer (mas s/volume) 89 mg/dL 70-110 Capillary blood glucose measurement by g lucometer (mass/volume) - 02/02/20 11:08 Capillary blood glucose measurement by glucometer (mas s/volume) 109 mg/dL 70-110 Capillary blood glucose measurement by g lucometer (mass/volume) - 02/02/20 17:49 Capillary blood glucose measurement by glucometer (mas s/volume) 118 mg/dL 70-110 Capillary blood glucose measurement by g lucometer (mass/volume) - 02/03/20 01:10 Capillary blood glucose measurement by glucometer (mas s/volume) 95 mg/dL 70-110 Complete blood count (CBC) with automate d white blood cell (WBC) differential - 02/03/20 04:00 Blood leukocytes automated count (number/volume) 12.4 10*3/uL 4.3-11.0 Blood erythrocytes automated count (number/volume) 3.38 10*6/uL 4.35-5.85 Venous blood hemoglobin measurement (mass/volume) 10.3 g/dL 13.3-17.7 Blood hematocrit (volume fraction) 32 % 40-54 Automated erythrocyte mean corpuscular volume 96 [ foz_us] 80-99 Automated erythrocyte mean corpuscular h emoglobin (mass per erythrocyte) 31 pg 25-34 Automated erythrocyte mean corpuscular h emoglobin concentration measurement (mass/volume) 32 g/dL 32-36 Automated erythrocyte distribution width ratio 13. 9 % 10.0- 14.5 Automated blood platelet count (count/volume) 321 10*3/uL 130-400 Automated blood platelet mean volume measurement 10.6 [foz_us] 7.4-10.4 Automated blood neutrophils/100 leukocytes 86 % 42-75 Automated blood lymphocytes/100 leukocytes 5 % 12-44 Blood monocytes/100 leukocytes 8 % 0-12 Automated blood eosinophils/100 leukocytes 2 % 0-10 Automated blood basophils/100 leukocytes 0 % 0-10 Blood neutrophils automated count (number/volume) 10.6 10*3 1.8-7.8 Blood lymphocytes automated count (number/volume) 0.6 10*3 1.0-4.0 Blood monocytes automated count (number/volume) 1. 0 10*3 0.0-1.0 Automated eosinophil count 0.2 10*3/uL 0 .0-0.3 Automated blood basophil count (count/volume) 0.0 10*3/uL 0.0-0.1 Arterial blood gas measurement - 0 04:00 Blood pCO2 52 mm[Hg] 35-45 Blood pO2 113 mm[Hg] 79-93 Arterial blood bicarbonate measurement (moles/volume) 27 mmol/L 23-27 Arterial blood base excess by calculation 1.2 mmol /L -2.5-2.5 Arterial blood oxygen saturation measurement 98 % 94-100 * Inhaled oxygen flow rate 60% NRG Arterial blood pH measurement with patient temperature correction 7.33 7.37-7.43 Arterial blood carbon dioxide, total measurement (mole s/volume) 28.3 mmol/L 21.0-31.0 Body site RIGHT RADIAL NRG Assessment of wrist artery patency prior to arterial p uncture YES-POS NRG Setting of ventilation mode YES NR G Measurement of body temperature 36.3 NRG Comprehensive metabolic panel - 02/03/20 04:00 Serum or plasma sodium measurement (moles/volume) 140 mmol/L 135-145 Serum or plasma potassium measurement (moles/volume) 3.6 mmol/L 3.6-5.0 Serum or plasma chloride measurement (moles/volume) 108 mmol/L 98-107 Carbon dioxide 23 mmol/L 21-32 Serum or plasma anion gap determination (moles/volume) 9 mmol/L 5-14 Serum or plasma urea nitrogen measurement (mass/volume ) 21 mg/dL 7-18 Serum or plasma creatinine measurement (mass/volume) 0.80 mg/dL 0.60-1.30 Serum or plasma urea nitrogen/creatinine mass ratio 26 NRG Serum or plasma creatinine measurement w ith calculation of estimated glomerular filtration rate > NRG Serum or plasma glucose measurement (mass/volume) 103 mg/dL 70-105 Serum or plasma calcium measurement (mass/volume) 8.3 mg/dL 8.5-10.1 Serum or plasma total bilirubin measurement (mass/volu me) 0.6 mg/dL 0.1-1.0 Serum or plasma alkaline phosphatase serina surement (enzymatic activity/volume) 56 U/L 40-136 Serum or plasma aspartate aminotransfera se measurement (enzymatic activity/volume) 19 U/L 5-34 Serum or plasma alanine aminotransferase measurement (enzymatic activity/volume) 38 U/L 0-55 Serum or plasma protein measurement (mass/volume) 5.2 g/dL 6.4-8.2 Serum or plasma albumin measurement (mass/volume) 2.1 g/dL 3.2-4.5 CALCIUM CORRECTED 9.8 mg/dL 8.5-10.1 Serum or plasma phosphate measurement (m ass/volume) - 02/03/20 04:00 Serum or plasma phosphate measurement (mass/volume) 3.0 mg/dL 2.3-4.7 Magnesium - 02/03/20 04:00 Magnesium 2.3 mg/dL 1.6-2.4 Capillary blood glucose measurement by g lucometer (mass/volume) - 02/03/20 11:21 Capillary blood glucose measurement by glucometer (mas s/volume) 106 mg/dL 70-110 Capillary blood glucose measurement by g lucometer (mass/volume) - 02/03/20 17:00 Capillary blood glucose measurement by glucometer (mas s/volume) 124 mg/dL 70-110 Capillary blood glucose measurement by g lucometer (mass/volume) - 02/04/20 00:19 Capillary blood glucose measurement by glucometer (mas s/volume) 100 mg/dL 70-110 Complete blood count (CBC) with automate d white blood cell (WBC) differential - 02/04/20 01:43 Blood leukocytes automated count (number/volume) 10.9 10*3/uL 4.3-11.0 Blood erythrocytes automated count (number/volume) 3.72 10*6/uL 4.35-5.85 Venous blood hemoglobin measurement (mass/volume) 11.2 g/dL 13.3-17.7 Blood hematocrit (volume fraction) 35 % 40-54 Automated erythrocyte mean corpuscular volume 93 [ foz_us] 80-99 Automated erythrocyte mean corpuscular h emoglobin (mass per erythrocyte) 30 pg 25-34 Automated erythrocyte mean corpuscular h emoglobin concentration measurement (mass/volume) 32 g/dL 32-36 Automated erythrocyte distribution width ratio 13. 9 % 10.0- 14.5 Automated blood platelet count (count/volume) 389 10*3/uL 130-400 Automated blood platelet mean volume measurement 10.3 [foz_us] 7.4-10.4 Automated blood neutrophils/100 leukocytes 84 % 42-75 Automated blood lymphocytes/100 leukocytes 5 % 12-44 Blood monocytes/100 leukocytes 10 % 0-12 Automated blood eosinophils/100 leukocytes 0 % 0-10 Automated blood basophils/100 leukocytes 0 % 0-10 Blood neutrophils automated count (number/volume) 9.2 10*3 1.8-7.8 Blood lymphocytes automated count (number/volume) 0.6 10*3 1.0-4.0 Blood monocytes automated count (number/volume) 1. 1 10*3 0.0-1.0 Automated eosinophil count 0.0 10*3/uL 0 .0-0.3 Automated blood basophil count (count/volume) 0.0 10*3/uL 0.0-0.1 Comprehensive metabolic panel - 02/04/20 01:43 Serum or plasma sodium measurement (moles/volume) 142 mmol/L 135-145 Serum or plasma potassium measurement (moles/volume) 3.7 mmol/L 3.6-5.0 Serum or plasma chloride measurement (moles/volume) 110 mmol/L 98-107 Carbon dioxide 22 mmol/L 21-32 Serum or plasma anion gap determination (moles/volume) 10 mmol/L 5-14 Serum or plasma urea nitrogen measurement (mass/volume ) 21 mg/dL 7-18 Serum or plasma creatinine measurement (mass/volume) 0.77 mg/dL 0.60-1.30 Serum or plasma urea nitrogen/creatinine mass ratio 27 NRG Serum or plasma creatinine measurement w ith calculation of estimated glomerular filtration rate > NRG Serum or plasma glucose measurement (mass/volume) 98 mg/dL 70-105 Serum or plasma calcium measurement (mass/volume) 8.5 mg/dL 8.5-10.1 Serum or plasma total bilirubin measurement (mass/volu me) 0.5 mg/dL 0.1-1.0 Serum or plasma alkaline phosphatase serina surement (enzymatic activity/volume) 78 U/L 40-136 Serum or plasma aspartate aminotransfera se measurement (enzymatic activity/volume) 21 U/L 5-34 Serum or plasma alanine aminotransferase measurement (enzymatic activity/volume) 35 U/L 0-55 Serum or plasma protein measurement (mass/volume) 5.8 g/dL 6.4-8.2 Serum or plasma albumin measurement (mass/volume) 2.4 g/dL 3.2-4.5 CALCIUM CORRECTED 9.8 mg/dL 8.5-10.1 Arterial blood gas measurement - 0 01:43 Blood pCO2 45 mm[Hg] 35-45 Blood pO2 95 mm[Hg] 79-93 Arterial blood bicarbonate measurement (moles/volume) 26 mmol/L 23-27 Arterial blood base excess by calculation 0.9 mmol /L -2.5-2.5 Arterial blood oxygen saturation measurement 97 % 94-100 * Inhaled oxygen flow rate 55 NRG Arterial blood pH measurement with patient temperature correction 7.37 7.37-7.43 Arterial blood carbon dioxide, total measurement (mole s/volume) 26.8 mmol/L 21.0-31.0 Body site RIGHT ARTLINE NRG Assessment of wrist artery patency prior to arterial p uncture POSITIVE NRG Setting of ventilation mode YES NR G Measurement of body temperature 37.4 NRG Serum or plasma phosphate measurement (m ass/volume) - 02/04/20 01:43 Serum or plasma phosphate measurement (mass/volume) 2.7 mg/dL 2.3-4.7 Magnesium - 02/04/20 01:43 Magnesium 2.2 mg/dL 1.6-2.4 Arterial blood gas measurement - 0 10:40 Blood pCO2 45 mm[Hg] 35-45 Blood pO2 97 mm[Hg] 79-93 Arterial blood bicarbonate measurement (moles/volume) 25 mmol/L 23-27 Arterial blood base excess by calculation 0.3 mmol /L -2.5-2.5 Arterial blood oxygen saturation measurement 97 % 94-100 * Inhaled oxygen flow rate 55% NRG Arterial blood pH measurement with patient temperature correction 7.36 7.37-7.43 Arterial blood carbon dioxide, total measurement (mole s/volume) 26.3 mmol/L 21.0-31.0 Body site R.ARTLINE NRG Assessment of wrist artery patency prior to arterial p uncture YES-POS NRG Setting of ventilation mode YES NR G Measurement of body temperature 99.5 NRG Capillary blood glucose measurement by g lucometer (mass/volume) - 02/04/20 11:32 Capillary blood glucose measurement by glucometer (mas s/volume) 144 mg/dL 70-110 Bacterial sputum culture - 02/04/20 13:3 0 QUANTITY OF GROWTH Moderate Growth NRG Bacterial sputum culture [id number] NRG SUSCEPTIBILITY SUSCEPTIBILITY REPORTED 02/05 09:15 NRG MRSA SCREEN ENTEROBACTER AEROGENES ISOLATED NRG RAPID ID (PREVIOUS NOMENCLATURE: NRG MRSA CONFIRMATION FROM CULTURE [id number] N RG ID CONFIRMATION ENTEROBACTER AEROGENES) NRG Dirithromycin susceptibility test by dis k diffusion - 02/04/20 13:30 Gentamicin susceptibility test by minimum inhibitory c oncentration <= NRG Trimethoprim/sulfamethoxazole susceptibi lity test by minimum inhibitoryconcentration <= NRG Levofloxacin susceptibility test by minimum inhibitory concentration <= NRG Ampicillin susceptibility test by minimum inhibitory c oncentration > NRG Cefazolin susceptibility test by minimum inhibitory co ncentration > NRG Ceftriaxone susceptibility test by minimum inhibitory concentration > NRG Piperacillin/tazobactam susceptibility t est by minimum inhibitory concentration > NRG Ciprofloxacin susceptibility test by minimum inhibitor y concentration <= NRG Meropenem susceptibility test by minimum inhibitory co ncentration <= NRG Amoxicillin and clavulanate potassium susc CESARIO > NRG Serum or plasma potassium measurement (m oles/volume) - 02/04/20 14:22 Serum or plasma potassium measurement (moles/volume) 3.5 mmol/L 3.6-5.0 Magnesium - 02/04/20 14:22 Magnesium 1.8 mg/dL 1.6-2.4 Capillary blood glucose measurement by g lucometer (mass/volume) - 02/04/20 17:16 Capillary blood glucose measurement by glucometer (mas s/volume) 108 mg/dL 70-110 Capillary blood glucose measurement by g lucometer (mass/volume) - 02/04/20 23:14 Capillary blood glucose measurement by glucometer (mas s/volume) 107 mg/dL 70-110 Arterial blood gas measurement - 0 01:15 Blood pCO2 47 mm[Hg] 35-45 Blood pO2 142 mm[Hg] 79-93 Arterial blood bicarbonate measurement (moles/volume) 27 mmol/L 23-27 Arterial blood base excess by calculation 2.5 mmol /L -2.5-2.5 Arterial blood oxygen saturation measurement 99 % 94-100 * Inhaled oxygen flow rate 60 NRG Arterial blood pH measurement with patient temperature correction 7.38 7.37-7.43 Arterial blood carbon dioxide, total measurement (mole s/volume) 28.6 mmol/L 21.0-31.0 Body site RIGHT ARTLINE NRG Assessment of wrist artery patency prior to arterial p uncture POSITIVE NRG Setting of ventilation mode YES NR G Measurement of body temperature 36.9 NRG Complete blood count (CBC) with automate d white blood cell (WBC) differential - 02/05/20 01:15 Blood leukocytes automated count (number/volume) 20.9 10*3/uL 4.3-11.0 Blood erythrocytes automated count (number/volume) 3.57 10*6/uL 4.35-5.85 Venous blood hemoglobin measurement (mass/volume) 10.8 g/dL 13.3-17.7 Blood hematocrit (volume fraction) 33 % 40-54 Automated erythrocyte mean corpuscular volume 93 [ foz_us] 80-99 Automated erythrocyte mean corpuscular h emoglobin (mass per erythrocyte) 30 pg 25-34 Automated erythrocyte mean corpuscular h emoglobin concentration measurement (mass/volume) 32 g/dL 32-36 Automated erythrocyte distribution width ratio 14. 0 % 10.0- 14.5 Automated blood platelet count (count/volume) 383 10*3/uL 130-400 Automated blood platelet mean volume measurement 10.3 [foz_us] 7.4-10.4 Automated blood neutrophils/100 leukocytes 87 % 42-75 Automated blood lymphocytes/100 leukocytes 5 % 12-44 Blood monocytes/100 leukocytes 7 % 0-12 Automated blood eosinophils/100 leukocytes 1 % 0-10 Automated blood basophils/100 leukocytes 0 % 0-10 Blood neutrophils automated count (number/volume) 18.2 10*3 1.8-7.8 Blood lymphocytes automated count (number/volume) 1.0 10*3 1.0-4.0 Blood monocytes automated count (number/volume) 1. 5 10*3 0.0-1.0 Automated eosinophil count 0.2 10*3/uL 0 .0-0.3 Automated blood basophil count (count/volume) 0.0 10*3/uL 0.0-0.1 Comprehensive metabolic panel - 02/05/20 01:15 Serum or plasma sodium measurement (moles/volume) 142 mmol/L 135-145 Serum or plasma potassium measurement (moles/volume) 3.6 mmol/L 3.6-5.0 Serum or plasma chloride measurement (moles/volume) 109 mmol/L 98-107 Carbon dioxide 23 mmol/L 21-32 Serum or plasma anion gap determination (moles/volume) 10 mmol/L 5-14 Serum or plasma urea nitrogen measurement (mass/volume ) 21 mg/dL 7-18 Serum or plasma creatinine measurement (mass/volume) 0.75 mg/dL 0.60-1.30 Serum or plasma urea nitrogen/creatinine mass ratio 28 NRG Serum or plasma creatinine measurement w ith calculation of estimated glomerular filtration rate > NRG Serum or plasma glucose measurement (mass/volume) 112 mg/dL 70-105 Serum or plasma calcium measurement (mass/volume) 8.5 mg/dL 8.5-10.1 Serum or plasma total bilirubin measurement (mass/volu me) 0.7 mg/dL 0.1-1.0 Serum or plasma alkaline phosphatase serina surement (enzymatic activity/volume) 96 U/L 40-136 Serum or plasma aspartate aminotransfera se measurement (enzymatic activity/volume) 19 U/L 5-34 Serum or plasma alanine aminotransferase measurement (enzymatic activity/volume) 33 U/L 0-55 Serum or plasma protein measurement (mass/volume) 5.8 g/dL 6.4-8.2 Serum or plasma albumin measurement (mass/volume) 2.4 g/dL 3.2-4.5 CALCIUM CORRECTED 9.8 mg/dL 8.5-10.1 Serum or plasma phosphate measurement (m ass/volume) - 02/05/20 01:15 Serum or plasma phosphate measurement (mass/volume) 2.5 mg/dL 2.3-4.7 Magnesium - 02/05/20 01:15 Magnesium 2.2 mg/dL 1.6-2.4 Manual absolute plasma cell count - 01/19 01:15 Blood monocytes/100 leukocytes 7 % NRG Manual blood segmented neutrophils/100 leukocytes 88 % NRG Manual blood lymphocytes/100 leukocytes 4 % NRG Manual eosinophils/100 leukocytes in nose 1 % NRG Blood anisocytosis detection by light microscopy S LIGHT NRG PROCALCITONIN (PCT) - 02/05/20 01:15 PROCALCITONIN (PCT) 0.45 ng/mL <0.10 Complete blood count (CBC) with automate d white blood cell (WBC) differential - 02/06/20 03:15 Blood leukocytes automated count (number/volume) 14.7 10*3/uL 4.3-11.0 Blood erythrocytes automated count (number/volume) 3.70 10*6/uL 4.35-5.85 Venous blood hemoglobin measurement (mass/volume) 11.2 g/dL 13.3-17.7 Blood hematocrit (volume fraction) 34 % 40-54 Automated erythrocyte mean corpuscular volume 93 [ foz_us] 80-99 Automated erythrocyte mean corpuscular h emoglobin (mass per erythrocyte) 30 pg 25-34 Automated erythrocyte mean corpuscular h emoglobin concentration measurement (mass/volume) 33 g/dL 32-36 Automated erythrocyte distribution width ratio 14. 2 % 10.0- 14.5 Automated blood platelet count (count/volume) 376 10*3/uL 130-400 Automated blood platelet mean volume measurement 10.1 [foz_us] 7.4-10.4 Automated blood neutrophils/100 leukocytes 84 % 42-75 Automated blood lymphocytes/100 leukocytes 6 % 12-44 Blood monocytes/100 leukocytes 7 % 0-12 Automated blood eosinophils/100 leukocytes 3 % 0-10 Automated blood basophils/100 leukocytes 0 % 0-10 Blood neutrophils automated count (number/volume) 12.3 10*3 1.8-7.8 Blood lymphocytes automated count (number/volume) 0.9 10*3 1.0-4.0 Blood monocytes automated count (number/volume) 1. 0 10*3 0.0-1.0 Automated eosinophil count 0.5 10*3/uL 0 .0-0.3 Automated blood basophil count (count/volume) 0.0 10*3/uL 0.0-0.1 Whole blood basic metabolic panel - 02/18 03:15 Serum or plasma sodium measurement (moles/volume) 147 mmol/L 135-145 Serum or plasma potassium measurement (moles/volume) 3.3 mmol/L 3.6-5.0 Serum or plasma chloride measurement (moles/volume) 114 mmol/L 98-107 Carbon dioxide 22 mmol/L 21-32 Serum or plasma anion gap determination (moles/volume) 11 mmol/L 5-14 Serum or plasma urea nitrogen measurement (mass/volume ) 16 mg/dL 7-18 Serum or plasma creatinine measurement (mass/volume) 0.64 mg/dL 0.60-1.30 Serum or plasma urea nitrogen/creatinine mass ratio 25 NRG Serum or plasma creatinine measurement w ith calculation of estimated glomerular filtration rate > NRG Serum or plasma glucose measurement (mass/volume) 107 mg/dL 70-105 Serum or plasma calcium measurement (mass/volume) 8.7 mg/dL 8.5-10.1 Serum or plasma phosphate measurement (m ass/volume) - 02/06/20 03:15 Serum or plasma phosphate measurement (mass/volume) 1.8 mg/dL 2.3-4.7 Magnesium - 02/06/20 03:15 Magnesium 2.1 mg/dL 1.6-2.4 Arterial blood gas measurement - 0 03:15 Blood pCO2 43 mm[Hg] 35-45 Blood pO2 70 mm[Hg] 79-93 Arterial blood bicarbonate measurement (moles/volume) 26 mmol/L 23-27 Arterial blood base excess by calculation 2.0 mmol /L -2.5-2.5 Arterial blood oxygen saturation measurement 92 % 94-100 * Inhaled oxygen flow rate 35 NRG Arterial blood pH measurement with patient temperature correction 7.40 7.37-7.43 Arterial blood carbon dioxide, total measurement (mole s/volume) 27.6 mmol/L 21.0-31.0 Body site RIGHT ARTLINE NRG Assessment of wrist artery patency prior to arterial p uncture POSITIVE NRG Setting of ventilation mode YES NR G Measurement of body temperature 36.8 NRG Capillary blood glucose measurement by g lucometer (mass/volume) - 02/06/20 13:25 Capillary blood glucose measurement by glucometer (mas s/volume) 143 mg/dL 70-110 Capillary blood glucose measurement by g lucometer (mass/volume) - 02/06/20 18:30 Capillary blood glucose measurement by glucometer (mas s/volume) 108 mg/dL 70-110 Capillary blood glucose measurement by g lucometer (mass/volume) - 02/07/20 00:05 Capillary blood glucose measurement by glucometer (mas s/volume) 102 mg/dL 70-110 Arterial blood gas measurement - 0 02:22 Blood pCO2 42 mm[Hg] 35-45 Blood pO2 79 mm[Hg] 79-93 Arterial blood bicarbonate measurement (moles/volume) 27 mmol/L 23-27 Arterial blood base excess by calculation 2.9 mmol /L -2.5-2.5 Arterial blood oxygen saturation measurement 95 % 94-100 * Inhaled oxygen flow rate 40 NRG Arterial blood pH measurement with patient temperature correction 7.42 7.37-7.43 Arterial blood carbon dioxide, total measurement (mole s/volume) 28.2 mmol/L 21.0-31.0 Body site RIGHT RADIAL NRG Assessment of wrist artery patency prior to arterial p uncture POSITIVE NRG Setting of ventilation mode YES NR G Measurement of body temperature 37.4 NRG Complete blood count (CBC) with automate d white blood cell (WBC) differential - 02/07/20 02:22 Blood leukocytes automated count (number/volume) 15.8 10*3/uL 4.3-11.0 Blood erythrocytes automated count (number/volume) 3.39 10*6/uL 4.35-5.85 Venous blood hemoglobin measurement (mass/volume) 10.3 g/dL 13.3-17.7 Blood hematocrit (volume fraction) 32 % 40-54 Automated erythrocyte mean corpuscular volume 94 [ foz_us] 80-99 Automated erythrocyte mean corpuscular h emoglobin (mass per erythrocyte) 30 pg 25-34 Automated erythrocyte mean corpuscular h emoglobin concentration measurement (mass/volume) 32 g/dL 32-36 Automated erythrocyte distribution width ratio 14. 0 % 10.0- 14.5 Automated blood platelet count (count/volume) 321 10*3/uL 130-400 Automated blood platelet mean volume measurement 10.2 [foz_us] 7.4-10.4 Automated blood neutrophils/100 leukocytes 86 % 42-75 Automated blood lymphocytes/100 leukocytes 7 % 12-44 Blood monocytes/100 leukocytes 4 % 0-12 Automated blood eosinophils/100 leukocytes 3 % 0-10 Automated blood basophils/100 leukocytes 0 % 0-10 Blood neutrophils automated count (number/volume) 13.6 10*3 1.8-7.8 Blood lymphocytes automated count (number/volume) 1.0 10*3 1.0-4.0 Blood monocytes automated count (number/volume) 0. 6 10*3 0.0-1.0 Automated eosinophil count 0.5 10*3/uL 0 .0-0.3 Automated blood basophil count (count/volume) 0.0 10*3/uL 0.0-0.1 Whole blood basic metabolic panel - 03/21 02:22 Serum or plasma sodium measurement (moles/volume) 144 mmol/L 135-145 Serum or plasma potassium measurement (moles/volume) 3.6 mmol/L 3.6-5.0 Serum or plasma chloride measurement (moles/volume) 112 mmol/L 98-107 Carbon dioxide 22 mmol/L 21-32 Serum or plasma anion gap determination (moles/volume) 10 mmol/L 5-14 Serum or plasma urea nitrogen measurement (mass/volume ) 15 mg/dL 7-18 Serum or plasma creatinine measurement (mass/volume) 0.65 mg/dL 0.60-1.30 Serum or plasma urea nitrogen/creatinine mass ratio 23 NRG Serum or plasma creatinine measurement w ith calculation of estimated glomerular filtration rate > NRG Serum or plasma glucose measurement (mass/volume) 114 mg/dL 70-105 Serum or plasma calcium measurement (mass/volume) 8.1 mg/dL 8.5-10.1 Serum or plasma phosphate measurement (m ass/volume) - 02/07/20 02:22 Serum or plasma phosphate measurement (mass/volume) 1.6 mg/dL 2.3-4.7 Magnesium - 02/07/20 02:22 Magnesium 1.9 mg/dL 1.6-2.4 Serum or plasma lithium measurement (mol es/volume) - 02/07/20 02:25 BNP PT 241.8 pg/mL <100.0 Fibrin D-dimer FEU measurement in platel et poor plasma (mass/volume) - 02/07/20 02:25 Fibrin D-dimer FEU measurement in platelet poor plasma (mass/volume) 2.37 ug/mL 0.00-0.49 Serum or plasma ferritin measurement (ma ss/volume) - 02/07/20 02:25 Serum or plasma ferritin measurement (mass/volume) 794.5 % 32.0-356.0 Arterial blood gas measurement - 0 07:22 Blood pCO2 38 mm[Hg] 35-45 Blood pO2 56 mm[Hg] 79-93 Arterial blood bicarbonate measurement (moles/volume) 29 mmol/L 23-27 Arterial blood base excess by calculation 5.6 mmol /L -2.5-2.5 Arterial blood oxygen saturation measurement 87 % 94-100 * Inhaled oxygen flow rate 40% NRG Arterial blood pH measurement with patient temperature correction 7.50 7.37-7.43 Arterial blood carbon dioxide, total measurement (mole s/volume) 30.1 mmol/L 21.0-31.0 Body site ARTLINE NRG Assessment of wrist artery patency prior to arterial p uncture ART LINE NRG Setting of ventilation mode YES NR G Measurement of body temperature 37.3 NRG Whole blood basic metabolic panel - 03/21 12:55 Serum or plasma sodium measurement (moles/volume) 141 mmol/L 135-145 Serum or plasma potassium measurement (moles/volume) 3.7 mmol/L 3.6-5.0 Serum or plasma chloride measurement (moles/volume) 108 mmol/L 98-107 Carbon dioxide 23 mmol/L 21-32 Serum or plasma anion gap determination (moles/volume) 10 mmol/L 5-14 Serum or plasma urea nitrogen measurement (mass/volume ) 18 mg/dL 7-18 Serum or plasma creatinine measurement (mass/volume) 0.71 mg/dL 0.60-1.30 Serum or plasma urea nitrogen/creatinine mass ratio 25 NRG Serum or plasma creatinine measurement w ith calculation of estimated glomerular filtration rate > NRG Serum or plasma glucose measurement (mass/volume) 163 mg/dL 70-105 Serum or plasma calcium measurement (mass/volume) 7.8 mg/dL 8.5-10.1 Magnesium - 02/07/20 12:55 Magnesium 1.7 mg/dL 1.6-2.4 Capillary blood glucose measurement by g lucometer (mass/volume) - 02/08/20 00:03 Capillary blood glucose measurement by glucometer (mas s/volume) 107 mg/dL 70-110 Complete blood count (CBC) with automate d white blood cell (WBC) differential - 02/08/20 02:05 Blood leukocytes automated count (number/volume) 14.9 10*3/uL 4.3-11.0 Blood erythrocytes automated count (number/volume) 3.40 10*6/uL 4.35-5.85 Venous blood hemoglobin measurement (mass/volume) 10.2 g/dL 13.3-17.7 Blood hematocrit (volume fraction) 32 % 40-54 Automated erythrocyte mean corpuscular volume 93 [ foz_us] 80-99 Automated erythrocyte mean corpuscular h emoglobin (mass per erythrocyte) 30 pg 25-34 Automated erythrocyte mean corpuscular h emoglobin concentration measurement (mass/volume) 32 g/dL 32-36 Automated erythrocyte distribution width ratio 14. 1 % 10.0- 14.5 Automated blood platelet count (count/volume) 327 10*3/uL 130-400 Automated blood platelet mean volume measurement 10.2 [foz_us] 7.4-10.4 Automated blood neutrophils/100 leukocytes 83 % 42-75 Automated blood lymphocytes/100 leukocytes 8 % 12-44 Blood monocytes/100 leukocytes 6 % 0-12 Automated blood eosinophils/100 leukocytes 4 % 0-10 Automated blood basophils/100 leukocytes 0 % 0-10 Blood neutrophils automated count (number/volume) 12.3 10*3 1.8-7.8 Blood lymphocytes automated count (number/volume) 1.1 10*3 1.0-4.0 Blood monocytes automated count (number/volume) 0. 9 10*3 0.0-1.0 Automated eosinophil count 0.6 10*3/uL 0 .0-0.3 Automated blood basophil count (count/volume) 0.0 10*3/uL 0.0-0.1 Arterial blood gas measurement - 0 02:05 Blood pCO2 41 mm[Hg] 35-45 Blood pO2 81 mm[Hg] 79-93 Arterial blood bicarbonate measurement (moles/volume) 28 mmol/L 23-27 Arterial blood base excess by calculation 4.4 mmol /L -2.5-2.5 Arterial blood oxygen saturation measurement 95 % 94-100 * Inhaled oxygen flow rate AC MODE NRG Arterial blood pH measurement with patient temperature correction 7.45 7.37-7.43 Arterial blood carbon dioxide, total measurement (mole s/volume) 29.4 mmol/L 21.0-31.0 Body site RT ART LINE NRG Assessment of wrist artery patency prior to arterial p uncture YES-POS NRG Setting of ventilation mode YES NR G Measurement of body temperature 37.2 NRG Whole blood basic metabolic panel - 04/21 02:05 Serum or plasma sodium measurement (moles/volume) 141 mmol/L 135-145 Serum or plasma potassium measurement (moles/volume) 3.5 mmol/L 3.6-5.0 Serum or plasma chloride measurement (moles/volume) 109 mmol/L 98-107 Carbon dioxide 23 mmol/L 21-32 Serum or plasma anion gap determination (moles/volume) 9 mmol/L 5-14 Serum or plasma urea nitrogen measurement (mass/volume ) 16 mg/dL 7-18 Serum or plasma creatinine measurement (mass/volume) 0.64 mg/dL 0.60-1.30 Serum or plasma urea nitrogen/creatinine mass ratio 25 NRG Serum or plasma creatinine measurement w ith calculation of estimated glomerular filtration rate > NRG Serum or plasma glucose measurement (mass/volume) 117 mg/dL 70-105 Serum or plasma calcium measurement (mass/volume) 8.0 mg/dL 8.5-10.1 Serum or plasma phosphate measurement (m ass/volume) - 02/08/20 02:05 Serum or plasma phosphate measurement (mass/volume) 2.0 mg/dL 2.3-4.7 Magnesium - 02/08/20 02:05 Magnesium 1.9 mg/dL 1.6-2.4 Serum or plasma lithium measurement (mol es/volume) - 02/08/20 02:05 BNP PT 223.1 pg/mL <100.0 PROCALCITONIN (PCT) - 02/08/20 02:05 PROCALCITONIN (PCT) 0.64 ng/mL <0.10 Capillary blood glucose measurement by g lucometer (mass/volume) - 02/08/20 18:01 Capillary blood glucose measurement by glucometer (mas s/volume) 133 mg/dL 70-110 Complete blood count (CBC) with automate d white blood cell (WBC) differential - 02/09/20 03:13 Blood leukocytes automated count (number/volume) 15.0 10*3/uL 4.3-11.0 Blood erythrocytes automated count (number/volume) 3.71 10*6/uL 4.35-5.85 Venous blood hemoglobin measurement (mass/volume) 11.2 g/dL 13.3-17.7 Blood hematocrit (volume fraction) 34 % 40-54 Automated erythrocyte mean corpuscular volume 92 [ foz_us] 80-99 Automated erythrocyte mean corpuscular h emoglobin (mass per erythrocyte) 30 pg 25-34 Automated erythrocyte mean corpuscular h emoglobin concentration measurement (mass/volume) 33 g/dL 32-36 Automated erythrocyte distribution width ratio 13. 6 % 10.0- 14.5 Automated blood platelet count (count/volume) 341 10*3/uL 130-400 Automated blood platelet mean volume measurement 10.3 [foz_us] 7.4-10.4 Automated blood neutrophils/100 leukocytes 86 % 42-75 Automated blood lymphocytes/100 leukocytes 7 % 12-44 Blood monocytes/100 leukocytes 6 % 0-12 Automated blood eosinophils/100 leukocytes 1 % 0-10 Automated blood basophils/100 leukocytes 0 % 0-10 Blood neutrophils automated count (number/volume) 12.9 10*3 1.8-7.8 Blood lymphocytes automated count (number/volume) 1.1 10*3 1.0-4.0 Blood monocytes automated count (number/volume) 0. 9 10*3 0.0-1.0 Automated eosinophil count 0.2 10*3/uL 0 .0-0.3 Automated blood basophil count (count/volume) 0.0 10*3/uL 0.0-0.1 Whole blood basic metabolic panel - 01/30 03:13 Serum or plasma sodium measurement (moles/volume) 141 mmol/L 135-145 Serum or plasma potassium measurement (moles/volume) 3.6 mmol/L 3.6-5.0 Serum or plasma chloride measurement (moles/volume) 104 mmol/L 98-107 Carbon dioxide 28 mmol/L 21-32 Serum or plasma anion gap determination (moles/volume) 9 mmol/L 5-14 Serum or plasma urea nitrogen measurement (mass/volume ) 16 mg/dL 7-18 Serum or plasma creatinine measurement (mass/volume) 0.65 mg/dL 0.60-1.30 Serum or plasma urea nitrogen/creatinine mass ratio 25 NRG Serum or plasma creatinine measurement w ith calculation of estimated glomerular filtration rate > NRG Serum or plasma glucose measurement (mass/volume) 116 mg/dL 70-105 Serum or plasma calcium measurement (mass/volume) 8.3 mg/dL 8.5-10.1 Serum or plasma phosphate measurement (m ass/volume) - 02/09/20 03:13 Serum or plasma phosphate measurement (mass/volume) 2.4 mg/dL 2.3-4.7 Magnesium - 02/09/20 03:13 Magnesium 1.9 mg/dL 1.6-2.4 Serum or plasma triglyceride measurement (mass/volume) - 02/09/20 03:13 Serum or plasma triglyceride measurement (mass/volume) 244 mg/dL <150 Arterial blood gas measurement - 0 03:30 Blood pCO2 44 mm[Hg] 35-45 Blood pO2 52 mm[Hg] 79-93 Arterial blood bicarbonate measurement (moles/volume) 31 mmol/L 23-27 Arterial blood base excess by calculation 7.0 mmol /L -2.5-2.5 Arterial blood oxygen saturation measurement 86 % 94-100 * Inhaled oxygen flow rate 45% NRG Arterial blood pH measurement with patient temperature correction 7.46 7.37-7.43 Arterial blood carbon dioxide, total measurement (mole s/volume) 32.7 mmol/L 21.0-31.0 Body site LEFT RADIAL NRG Assessment of wrist artery patency prior to arterial p uncture YES-POS NRG Setting of ventilation mode YES NR G Measurement of body temperature 35.9 NRG Complete blood count (CBC) with automate d white blood cell (WBC) differential - 02/10/20 03:14 Blood leukocytes automated count (number/volume) 12.8 10*3/uL 4.3-11.0 Blood erythrocytes automated count (number/volume) 3.72 10*6/uL 4.35-5.85 Venous blood hemoglobin measurement (mass/volume) 11.1 g/dL 13.3-17.7 Blood hematocrit (volume fraction) 35 % 40-54 Automated erythrocyte mean corpuscular volume 94 [ foz_us] 80-99 Automated erythrocyte mean corpuscular h emoglobin (mass per erythrocyte) 30 pg 25-34 Automated erythrocyte mean corpuscular h emoglobin concentration measurement (mass/volume) 32 g/dL 32-36 Automated erythrocyte distribution width ratio 14. 0 % 10.0- 14.5 Automated blood platelet count (count/volume) 317 10*3/uL 130-400 Automated blood platelet mean volume measurement 10.0 [foz_us] 7.4-10.4 Automated blood neutrophils/100 leukocytes 81 % 42-75 Automated blood lymphocytes/100 leukocytes 7 % 12-44 Blood monocytes/100 leukocytes 7 % 0-12 Automated blood eosinophils/100 leukocytes 5 % 0-10 Automated blood basophils/100 leukocytes 0 % 0-10 Blood neutrophils automated count (number/volume) 10.3 10*3 1.8-7.8 Blood lymphocytes automated count (number/volume) 0.9 10*3 1.0-4.0 Blood monocytes automated count (number/volume) 0. 9 10*3 0.0-1.0 Automated eosinophil count 0.6 10*3/uL 0 .0-0.3 Automated blood basophil count (count/volume) 0.0 10*3/uL 0.0-0.1 Whole blood basic metabolic panel - 01/30 08/21 03:14 Serum or plasma sodium measurement (moles/volume) 140 mmol/L 135-145 Serum or plasma potassium measurement (moles/volume) 3.3 mmol/L 3.6-5.0 Serum or plasma chloride measurement (moles/volume) 103 mmol/L 98-107 Carbon dioxide 28 mmol/L 21-32 Serum or plasma anion gap determination (moles/volume) 9 mmol/L 5-14 Serum or plasma urea nitrogen measurement (mass/volume ) 14 mg/dL 7-18 Serum or plasma creatinine measurement (mass/volume) 0.62 mg/dL 0.60-1.30 Serum or plasma urea nitrogen/creatinine mass ratio 23 NRG Serum or plasma creatinine measurement w ith calculation of estimated glomerular filtration rate > NRG Serum or plasma glucose measurement (mass/volume) 118 mg/dL 70-105 Serum or plasma calcium measurement (mass/volume) 8.1 mg/dL 8.5-10.1 Serum or plasma phosphate measurement (m ass/volume) - 02/10/20 03:14 Serum or plasma phosphate measurement (mass/volume) 2.1 mg/dL 2.3-4.7 Magnesium - 02/10/20 03:14 Magnesium 2.0 mg/dL 1.6-2.4 Arterial blood gas measurement - 0 03:14 Blood pCO2 45 mm[Hg] 35-45 Blood pO2 78 mm[Hg] 79-93 Arterial blood bicarbonate measurement (moles/volume) 32 mmol/L 23-27 Arterial blood base excess by calculation 8.2 mmol /L -2.5-2.5 Arterial blood oxygen saturation measurement 96 % 94-100 * Inhaled oxygen flow rate 40% NRG Arterial blood pH measurement with patient temperature correction 7.47 7.37-7.43 Arterial blood carbon dioxide, total measurement (mole s/volume) 33.7 mmol/L 21.0-31.0 Body site LEFT RADIAL NRG Assessment of wrist artery patency prior to arterial p uncture YES-POS NRG Setting of ventilation mode YES NR G Measurement of body temperature 36.3 NRG Serum or plasma triglyceride measurement (mass/volume) - 02/10/20 03:14 Serum or plasma triglyceride measurement (mass/volume) 356 mg/dL <150 Capillary blood glucose measurement by g lucometer (mass/volume) - 02/10/20 11:24 Capillary blood glucose measurement by glucometer (mas s/volume) 119 mg/dL 70-110 Complete blood count (CBC) with automate d white blood cell (WBC) differential - 02/11/20 04:30 Blood leukocytes automated count (number/volume) 13.2 10*3/uL 4.3-11.0 Blood erythrocytes automated count (number/volume) 3.62 10*6/uL 4.35-5.85 Venous blood hemoglobin measurement (mass/volume) 11.0 g/dL 13.3-17.7 Blood hematocrit (volume fraction) 34 % 40-54 Automated erythrocyte mean corpuscular volume 93 [ foz_us] 80-99 Automated erythrocyte mean corpuscular h emoglobin (mass per erythrocyte) 30 pg 25-34 Automated erythrocyte mean corpuscular h emoglobin concentration measurement (mass/volume) 33 g/dL 32-36 Automated erythrocyte distribution width ratio 13. 7 % 10.0- 14.5 Automated blood platelet count (count/volume) 341 10*3/uL 130-400 Automated blood platelet mean volume measurement 10.1 [foz_us] 7.4-10.4 Automated blood neutrophils/100 leukocytes 78 % 42-75 Automated blood lymphocytes/100 leukocytes 12 % 12-44 Blood monocytes/100 leukocytes 7 % 0-12 Automated blood eosinophils/100 leukocytes 2 % 0-10 Automated blood basophils/100 leukocytes 0 % 0-10 Blood neutrophils automated count (number/volume) 10.4 10*3 1.8-7.8 Blood lymphocytes automated count (number/volume) 1.6 10*3 1.0-4.0 Blood monocytes automated count (number/volume) 0. 9 10*3 0.0-1.0 Automated eosinophil count 0.3 10*3/uL 0 .0-0.3 Automated blood basophil count (count/volume) 0.0 10*3/uL 0.0-0.1 Whole blood basic metabolic panel - 01/30 09/21 04:30 Serum or plasma sodium measurement (moles/volume) 140 mmol/L 135-145 Serum or plasma potassium measurement (moles/volume) 3.7 mmol/L 3.6-5.0 Serum or plasma chloride measurement (moles/volume) 104 mmol/L 98-107 Carbon dioxide 26 mmol/L 21-32 Serum or plasma anion gap determination (moles/volume) 10 mmol/L 5-14 Serum or plasma urea nitrogen measurement (mass/volume ) 12 mg/dL 7-18 Serum or plasma creatinine measurement (mass/volume) 0.58 mg/dL 0.60-1.30 Serum or plasma urea nitrogen/creatinine mass ratio 21 NRG Serum or plasma creatinine measurement w ith calculation of estimated glomerular filtration rate > NRG Serum or plasma glucose measurement (mass/volume) 115 mg/dL 70-105 Serum or plasma calcium measurement (mass/volume) 8.1 mg/dL 8.5-10.1 Serum or plasma phosphate measurement (m ass/volume) - 02/11/20 04:30 Serum or plasma phosphate measurement (mass/volume) 2.3 mg/dL 2.3-4.7 Magnesium - 02/11/20 04:30 Magnesium 1.9 mg/dL 1.6-2.4 Arterial blood gas measurement - 0 04:35 Blood pCO2 48 mm[Hg] 35-45 Blood pO2 57 mm[Hg] 79-93 Arterial blood bicarbonate measurement (moles/volume) 31 mmol/L 23-27 Arterial blood base excess by calculation 6.4 mmol /L -2.5-2.5 Arterial blood oxygen saturation measurement 84 % 94-100 * Inhaled oxygen flow rate 35% NRG Arterial blood pH measurement with patient temperature correction 7.42 7.37-7.43 Arterial blood carbon dioxide, total measurement (mole s/volume) 32.3 mmol/L 21.0-31.0 Body site LEFT RADIAL NRG Assessment of wrist artery patency prior to arterial p uncture YES-POS NRG Setting of ventilation mode YES NR G Measurement of body temperature 37.1 NRG Arterial blood gas measurement - 0 03:25 Blood pCO2 48 mm[Hg] 35-45 Blood pO2 73 mm[Hg] 79-93 Arterial blood bicarbonate measurement (moles/volume) 31 mmol/L 23-27 Arterial blood base excess by calculation 6.4 mmol /L -2.5-2.5 Arterial blood oxygen saturation measurement 94 % 94-100 * Inhaled oxygen flow rate 35% NRG Arterial blood pH measurement with patient temperature correction 7.42 7.37-7.43 Arterial blood carbon dioxide, total measurement (mole s/volume) 32.5 mmol/L 21.0-31.0 Body site LEFT RADIAL NRG Assessment of wrist artery patency prior to arterial p uncture YES-POS NRG Setting of ventilation mode YES NR G Measurement of body temperature 36.6 NRG Complete blood count (CBC) with automate d white blood cell (WBC) differential - 02/12/20 03:25 Blood leukocytes automated count (number/volume) 11.2 10*3/uL 4.3-11.0 Blood erythrocytes automated count (number/volume) 3.47 10*6/uL 4.35-5.85 Venous blood hemoglobin measurement (mass/volume) 10.4 g/dL 13.3-17.7 Blood hematocrit (volume fraction) 32 % 40-54 Automated erythrocyte mean corpuscular volume 93 [ foz_us] 80-99 Automated erythrocyte mean corpuscular h emoglobin (mass per erythrocyte) 30 pg 25-34 Automated erythrocyte mean corpuscular h emoglobin concentration measurement (mass/volume) 32 g/dL 32-36 Automated erythrocyte distribution width ratio 13. 8 % 10.0- 14.5 Automated blood platelet count (count/volume) 328 10*3/uL 130-400 Automated blood platelet mean volume measurement 10.3 [foz_us] 7.4-10.4 Automated blood neutrophils/100 leukocytes 76 % 42-75 Automated blood lymphocytes/100 leukocytes 13 % 12-44 Blood monocytes/100 leukocytes 8 % 0-12 Automated blood eosinophils/100 leukocytes 3 % 0-10 Automated blood basophils/100 leukocytes 0 % 0-10 Blood neutrophils automated count (number/volume) 8.5 10*3 1.8-7.8 Blood lymphocytes automated count (number/volume) 1.5 10*3 1.0-4.0 Blood monocytes automated count (number/volume) 0. 9 10*3 0.0-1.0 Automated eosinophil count 0.4 10*3/uL 0 .0-0.3 Automated blood basophil count (count/volume) 0.0 10*3/uL 0.0-0.1 Whole blood basic metabolic panel - 01/30 10/19 03:25 Serum or plasma sodium measurement (moles/volume) 141 mmol/L 135-145 Serum or plasma potassium measurement (moles/volume) 3.5 mmol/L 3.6-5.0 Serum or plasma chloride measurement (moles/volume) 104 mmol/L 98-107 Carbon dioxide 26 mmol/L 21-32 Serum or plasma anion gap determination (moles/volume) 11 mmol/L 5-14 Serum or plasma urea nitrogen measurement (mass/volume ) 10 mg/dL 7-18 Serum or plasma creatinine measurement (mass/volume) 0.58 mg/dL 0.60-1.30 Serum or plasma urea nitrogen/creatinine mass ratio 17 NRG Serum or plasma creatinine measurement w ith calculation of estimated glomerular filtration rate > NRG Serum or plasma glucose measurement (mass/volume) 111 mg/dL 70-105 Serum or plasma calcium measurement (mass/volume) 8.0 mg/dL 8.5-10.1 Serum or plasma phosphate measurement (m ass/volume) - 02/12/20 03:25 Serum or plasma phosphate measurement (mass/volume) 2.1 mg/dL 2.3-4.7 Magnesium - 02/12/20 03:25 Magnesium 1.9 mg/dL 1.6-2.4 Serum or plasma triglyceride measurement (mass/volume) - 02/12/20 03:25 Serum or plasma triglyceride measurement (mass/volume) 271 mg/dL <150 Complete blood count (CBC) with automate d white blood cell (WBC) differential - 02/13/20 01:55 Blood leukocytes automated count (number/volume) 13.1 10*3/uL 4.3-11.0 Blood erythrocytes automated count (number/volume) 3.38 10*6/uL 4.35-5.85 Venous blood hemoglobin measurement (mass/volume) 10.1 g/dL 13.3-17.7 Blood hematocrit (volume fraction) 31 % 40-54 Automated erythrocyte mean corpuscular volume 92 [ foz_us] 80-99 Automated erythrocyte mean corpuscular h emoglobin (mass per erythrocyte) 30 pg 25-34 Automated erythrocyte mean corpuscular h emoglobin concentration measurement (mass/volume) 32 g/dL 32-36 Automated erythrocyte distribution width ratio 13. 9 % 10.0- 14.5 Automated blood platelet count (count/volume) 328 10*3/uL 130-400 Automated blood platelet mean volume measurement 10.3 [foz_us] 7.4-10.4 Automated blood neutrophils/100 leukocytes 78 % 42-75 Automated blood lymphocytes/100 leukocytes 12 % 12-44 Blood monocytes/100 leukocytes 6 % 0-12 Automated blood eosinophils/100 leukocytes 4 % 0-10 Automated blood basophils/100 leukocytes 0 % 0-10 Blood neutrophils automated count (number/volume) 10.2 10*3 1.8-7.8 Blood lymphocytes automated count (number/volume) 1.5 10*3 1.0-4.0 Blood monocytes automated count (number/volume) 0. 8 10*3 0.0-1.0 Automated eosinophil count 0.5 10*3/uL 0 .0-0.3 Automated blood basophil count (count/volume) 0.0 10*3/uL 0.0-0.1 Arterial blood gas measurement - 0 01:55 Blood pCO2 44 mm[Hg] 35-45 Blood pO2 82 mm[Hg] 79-93 Arterial blood bicarbonate measurement (moles/volume) 33 mmol/L 23-27 Arterial blood base excess by calculation 9.3 mmol /L -2.5-2.5 Arterial blood oxygen saturation measurement 97 % 94-100 * Inhaled oxygen flow rate 35% NRG Arterial blood pH measurement with patient temperature correction 7.49 7.37-7.43 Arterial blood carbon dioxide, total measurement (mole s/volume) 34.7 mmol/L 21.0-31.0 Body site RIGHT RADIAL NRG Assessment of wrist artery patency prior to arterial p uncture YES-POS NRG Setting of ventilation mode YES NR G Measurement of body temperature 36.4 NRG Whole blood basic metabolic panel - 01/30 11/19 01:55 Serum or plasma sodium measurement (moles/volume) 139 mmol/L 135-145 Serum or plasma potassium measurement (moles/volume) 3.5 mmol/L 3.6-5.0 Serum or plasma chloride measurement (moles/volume) 102 mmol/L 98-107 Carbon dioxide 28 mmol/L 21-32 Serum or plasma anion gap determination (moles/volume) 9 mmol/L 5-14 Serum or plasma urea nitrogen measurement (mass/volume ) 11 mg/dL 7-18 Serum or plasma creatinine measurement (mass/volume) 0.58 mg/dL 0.60-1.30 Serum or plasma urea nitrogen/creatinine mass ratio 19 NRG Serum or plasma creatinine measurement w ith calculation of estimated glomerular filtration rate > NRG Serum or plasma glucose measurement (mass/volume) 110 mg/dL 70-105 Serum or plasma calcium measurement (mass/volume) 8.0 mg/dL 8.5-10.1 Serum or plasma phosphate measurement (m ass/volume) - 02/13/20 01:55 Serum or plasma phosphate measurement (mass/volume) 2.6 mg/dL 2.3-4.7 Magnesium - 02/13/20 01:55 Magnesium 2.0 mg/dL 1.6-2.4 Serum or plasma lithium measurement (mol es/volume) - 02/13/20 01:55 BNP PT 99.4 pg/mL <100.0 Fibrin D-dimer FEU measurement in platel et poor plasma (mass/volume) - 02/13/20 01:55 Fibrin D-dimer FEU measurement in platelet poor plasma (mass/volume) 1.37 ug/mL 0.00-0.49 Serum or plasma ferritin measurement (ma ss/volume) - 02/13/20 01:55 Serum or plasma ferritin measurement (mass/volume) 532.6 % 32.0-356.0 Whole blood basic metabolic panel - 01/30 12/19 02:55 Serum or plasma sodium measurement (moles/volume) 141 mmol/L 135-145 Serum or plasma potassium measurement (moles/volume) 3.4 mmol/L 3.6-5.0 Serum or plasma chloride measurement (moles/volume) 100 mmol/L 98-107 Carbon dioxide 29 mmol/L 21-32 Serum or plasma anion gap determination (moles/volume) 12 mmol/L 5-14 Serum or plasma urea nitrogen measurement (mass/volume ) 13 mg/dL 7-18 Serum or plasma creatinine measurement (mass/volume) 0.63 mg/dL 0.60-1.30 Serum or plasma urea nitrogen/creatinine mass ratio 21 NRG Serum or plasma creatinine measurement w ith calculation of estimated glomerular filtration rate > NRG Serum or plasma glucose measurement (mass/volume) 117 mg/dL 70-105 Serum or plasma calcium measurement (mass/volume) 8.8 mg/dL 8.5-10.1 Serum or plasma phosphate measurement (m ass/volume) - 02/14/20 02:55 Serum or plasma phosphate measurement (mass/volume) 2.1 mg/dL 2.3-4.7 Complete blood count (CBC) with automate d white blood cell (WBC) differential - 02/14/20 02:55 Blood leukocytes automated count (number/volume) 23.0 10*3/uL 4.3-11.0 Blood erythrocytes automated count (number/volume) 4.06 10*6/uL 4.35-5.85 Venous blood hemoglobin measurement (mass/volume) 12.2 g/dL 13.3-17.7 Blood hematocrit (volume fraction) 37 % 40-54 Automated erythrocyte mean corpuscular volume 92 [ foz_us] 80-99 Automated erythrocyte mean corpuscular h emoglobin (mass per erythrocyte) 30 pg 25-34 Automated erythrocyte mean corpuscular h emoglobin concentration measurement (mass/volume) 33 g/dL 32-36 Automated erythrocyte distribution width ratio 14. 0 % 10.0- 14.5 Automated blood platelet count (count/volume) 361 10*3/uL 130-400 Automated blood platelet mean volume measurement 10.0 [foz_us] 7.4-10.4 Automated blood neutrophils/100 leukocytes 88 % 42-75 Automated blood lymphocytes/100 leukocytes 5 % 12-44 Blood monocytes/100 leukocytes 6 % 0-12 Automated blood eosinophils/100 leukocytes 1 % 0-10 Automated blood basophils/100 leukocytes 0 % 0-10 Blood neutrophils automated count (number/volume) 20.3 10*3 1.8-7.8 Blood lymphocytes automated count (number/volume) 1.1 10*3 1.0-4.0 Blood monocytes automated count (number/volume) 1. 5 10*3 0.0-1.0 Automated eosinophil count 0.1 10*3/uL 0 .0-0.3 Automated blood basophil count (count/volume) 0.0 10*3/uL 0.0-0.1 Magnesium - 02/14/20 02:55 Magnesium 2.1 mg/dL 1.6-2.4 Serum or plasma triglyceride measurement (mass/volume) - 02/14/20 02:55 Serum or plasma triglyceride measurement (mass/volume) 274 mg/dL <150 Manual absolute plasma cell count - 01/30 12/19 02:55 Blood monocytes/100 leukocytes 7 % NRG Manual blood segmented neutrophils/100 leukocytes 88 % NRG Blood band neutrophils/100 leukocytes 1 % NRG Manual blood lymphocytes/100 leukocytes 4 % NRG Blood stomatocytes detection by light microscopy M ARKED NRG Serum or plasma lithium measurement (mol es/volume) - 02/14/20 02:55 BNP PT 221.2 pg/mL <100.0 Complete urinalysis with reflex to cultu re - 02/14/20 05:58 Urine color determination ORANGE NRG Urine clarity determination CLEAR NR G Urine pH measurement by test strip 7.0 5-9 Specific gravity of urine by test strip 1.020 1.016-1.022 Urine protein assay by test strip, semi-quantitative 1+ NEGATIVE Urine glucose detection by automated test strip NE GATIVE NEGATIVE Erythrocytes detection in urine sediment by light micr oscopy 3+ NEGATIVE Urine ketones detection by automated test strip 1+ NEGATIVE Urine nitrite detection by test strip NEGATIVE NEGATIVE Urine total bilirubin detection by test strip 1+ NEGATIVE Urine urobilinogen measurement by automated test strip (mass/volume) 4.0 mg/dL < = 1.0 Urine leukocyte esterase detection by dipstick NEG ATIVE NEGATIVE Automated urine sediment erythrocyte cou nt by microscopy (number/high power field) > [HPF] NRG Automated urine sediment leukocyte count by microscopy (number/high power field) NONE NRG Bacteria detection in urine sediment by light microsco py TRACE NRG Crystals detection in urine sediment by light microsco py NONE NRG Casts detection in urine sediment by light microscopy NONE NRG Mucus detection in urine sediment by light microscopy NEGATIVE NRG Complete urinalysis with reflex to culture NO NRG Methicillin resistant Staphylococcus aur eus (MRSA) screening culture - 02/14/20 05:58 Methicillin resistant Staphylococcus aureus (MRSA) scr eening culture NEG NRG Bacterial blood culture - 02/14/20 06:05 Bacterial blood culture NG NRG Bacterial blood culture - 02/14/20 06:20 Bacterial blood culture NG NRG Complete blood count (CBC) with automate d white blood cell (WBC) differential - 02/15/20 01:10 Blood leukocytes automated count (number/volume) 20.0 10*3/uL 4.3-11.0 Blood erythrocytes automated count (number/volume) 3.73 10*6/uL 4.35-5.85 Venous blood hemoglobin measurement (mass/volume) 11.1 g/dL 13.3-17.7 Blood hematocrit (volume fraction) 34 % 40-54 Automated erythrocyte mean corpuscular volume 92 [ foz_us] 80-99 Automated erythrocyte mean corpuscular h emoglobin (mass per erythrocyte) 30 pg 25-34 Automated erythrocyte mean corpuscular h emoglobin concentration measurement (mass/volume) 32 g/dL 32-36 Automated erythrocyte distribution width ratio 13. 9 % 10.0- 14.5 Automated blood platelet count (count/volume) 401 10*3/uL 130-400 Automated blood platelet mean volume measurement 10.0 [foz_us] 7.4-10.4 Automated blood neutrophils/100 leukocytes 84 % 42-75 Automated blood lymphocytes/100 leukocytes 7 % 12-44 Blood monocytes/100 leukocytes 8 % 0-12 Automated blood eosinophils/100 leukocytes 0 % 0-10 Automated blood basophils/100 leukocytes 0 % 0-10 Blood neutrophils automated count (number/volume) 16.9 10*3 1.8-7.8 Blood lymphocytes automated count (number/volume) 1.4 10*3 1.0-4.0 Blood monocytes automated count (number/volume) 1. 7 10*3 0.0-1.0 Automated eosinophil count 0.0 10*3/uL 0 .0-0.3 Automated blood basophil count (count/volume) 0.0 10*3/uL 0.0-0.1 Whole blood basic metabolic panel - 01/30 01/19 01:10 Serum or plasma sodium measurement (moles/volume) 142 mmol/L 135-145 Serum or plasma potassium measurement (moles/volume) 3.4 mmol/L 3.6-5.0 Serum or plasma chloride measurement (moles/volume) 102 mmol/L 98-107 Carbon dioxide 29 mmol/L 21-32 Serum or plasma anion gap determination (moles/volume) 11 mmol/L 5-14 Serum or plasma urea nitrogen measurement (mass/volume ) 20 mg/dL 7-18 Serum or plasma creatinine measurement (mass/volume) 0.62 mg/dL 0.60-1.30 Serum or plasma urea nitrogen/creatinine mass ratio 32 NRG Serum or plasma creatinine measurement w ith calculation of estimated glomerular filtration rate > NRG Serum or plasma glucose measurement (mass/volume) 117 mg/dL 70-105 Serum or plasma calcium measurement (mass/volume) 8.6 mg/dL 8.5-10.1 Serum or plasma phosphate measurement (m ass/volume) - 02/15/20 01:10 Serum or plasma phosphate measurement (mass/volume) 2.1 mg/dL 2.3-4.7 Magnesium - 02/15/20 01:10 Magnesium 2.0 mg/dL 1.6-2.4 Capillary blood glucose measurement by g lucometer (mass/volume) - 02/15/20 11:48 Capillary blood glucose measurement by glucometer (mas s/volume) 161 mg/dL 70-110 Vancomycin trough - 02/15/20 17:45 Vancomycin trough 14.1 ug/mL 10.0-20.0 Complete blood count (CBC) with automate d white blood cell (WBC) differential - 02/16/20 02:32 Blood leukocytes automated count (number/volume) 15.7 10*3/uL 4.3-11.0 Blood erythrocytes automated count (number/volume) 3.58 10*6/uL 4.35-5.85 Venous blood hemoglobin measurement (mass/volume) 10.8 g/dL 13.3-17.7 Blood hematocrit (volume fraction) 33 % 40-54 Automated erythrocyte mean corpuscular volume 93 [ foz_us] 80-99 Automated erythrocyte mean corpuscular h emoglobin (mass per erythrocyte) 30 pg 25-34 Automated erythrocyte mean corpuscular h emoglobin concentration measurement (mass/volume) 33 g/dL 32-36 Automated erythrocyte distribution width ratio 14. 1 % 10.0- 14.5 Automated blood platelet count (count/volume) 396 10*3/uL 130-400 Automated blood platelet mean volume measurement 9.8 [foz_us] 7.4-10.4 Automated blood neutrophils/100 leukocytes 81 % 42-75 Automated blood lymphocytes/100 leukocytes 9 % 12-44 Blood monocytes/100 leukocytes 10 % 0-12 Automated blood eosinophils/100 leukocytes 1 % 0-10 Automated blood basophils/100 leukocytes 0 % 0-10 Blood neutrophils automated count (number/volume) 12.7 10*3 1.8-7.8 Blood lymphocytes automated count (number/volume) 1.4 10*3 1.0-4.0 Blood monocytes automated count (number/volume) 1. 5 10*3 0.0-1.0 Automated eosinophil count 0.1 10*3/uL 0 .0-0.3 Automated blood basophil count (count/volume) 0.0 10*3/uL 0.0-0.1 Whole blood basic metabolic panel - 01/30 02/18 02:32 Serum or plasma sodium measurement (moles/volume) 138 mmol/L 135-145 Serum or plasma potassium measurement (moles/volume) 3.4 mmol/L 3.6-5.0 Serum or plasma chloride measurement (moles/volume) 102 mmol/L 98-107 Carbon dioxide 27 mmol/L 21-32 Serum or plasma anion gap determination (moles/volume) 9 mmol/L 5-14 Serum or plasma urea nitrogen measurement (mass/volume ) 16 mg/dL 7-18 Serum or plasma creatinine measurement (mass/volume) 0.64 mg/dL 0.60-1.30 Serum or plasma urea nitrogen/creatinine mass ratio 25 NRG Serum or plasma creatinine measurement w ith calculation of estimated glomerular filtration rate > NRG Serum or plasma glucose measurement (mass/volume) 163 mg/dL 70-105 Serum or plasma calcium measurement (mass/volume) 8.3 mg/dL 8.5-10.1 Serum or plasma phosphate measurement (m ass/volume) - 02/16/20 02:32 Serum or plasma phosphate measurement (mass/volume) 2.0 mg/dL 2.3-4.7 Magnesium - 02/16/20 02:32 Magnesium 2.1 mg/dL 1.6-2.4 Complete blood count (CBC) with automate d white blood cell (WBC) differential - 02/17/20 02:00 Blood leukocytes automated count (number/volume) 16.1 10*3/uL 4.3-11.0 Blood erythrocytes automated count (number/volume) 3.82 10*6/uL 4.35-5.85 Venous blood hemoglobin measurement (mass/volume) 11.4 g/dL 13.3-17.7 Blood hematocrit (volume fraction) 35 % 40-54 Automated erythrocyte mean corpuscular volume 92 [ foz_us] 80-99 Automated erythrocyte mean corpuscular h emoglobin (mass per erythrocyte) 30 pg 25-34 Automated erythrocyte mean corpuscular h emoglobin concentration measurement (mass/volume) 32 g/dL 32-36 Automated erythrocyte distribution width ratio 14. 0 % 10.0- 14.5 Automated blood platelet count (count/volume) 401 10*3/uL 130-400 Automated blood platelet mean volume measurement 9.6 [foz_us] 7.4-10.4 Automated blood neutrophils/100 leukocytes 80 % 42-75 Automated blood lymphocytes/100 leukocytes 10 % 12-44 Blood monocytes/100 leukocytes 9 % 0-12 Automated blood eosinophils/100 leukocytes 1 % 0-10 Automated blood basophils/100 leukocytes 0 % 0-10 Blood neutrophils automated count (number/volume) 12.9 10*3 1.8-7.8 Blood lymphocytes automated count (number/volume) 1.6 10*3 1.0-4.0 Blood monocytes automated count (number/volume) 1. 5 10*3 0.0-1.0 Automated eosinophil count 0.1 10*3/uL 0 .0-0.3 Automated blood basophil count (count/volume) 0.0 10*3/uL 0.0-0.1 Whole blood basic metabolic panel - 01/30 03/21 02:00 Serum or plasma sodium measurement (moles/volume) 142 mmol/L 135-145 Serum or plasma potassium measurement (moles/volume) 3.7 mmol/L 3.6-5.0 Serum or plasma chloride measurement (moles/volume) 104 mmol/L 98-107 Carbon dioxide 27 mmol/L 21-32 Serum or plasma anion gap determination (moles/volume) 11 mmol/L 5-14 Serum or plasma urea nitrogen measurement (mass/volume ) 20 mg/dL 7-18 Serum or plasma creatinine measurement (mass/volume) 0.67 mg/dL 0.60-1.30 Serum or plasma urea nitrogen/creatinine mass ratio 30 NRG Serum or plasma creatinine measurement w ith calculation of estimated glomerular filtration rate > NRG Serum or plasma glucose measurement (mass/volume) 111 mg/dL 70-105 Serum or plasma calcium measurement (mass/volume) 8.7 mg/dL 8.5-10.1 Serum or plasma phosphate measurement (m ass/volume) - 02/17/20 02:00 Serum or plasma phosphate measurement (mass/volume) 1.9 mg/dL 2.3-4.7 Magnesium - 02/17/20 02:00 Magnesium 2.1 mg/dL 1.6-2.4 Complete blood count (CBC) with automate d white blood cell (WBC) differential - 02/17/20 18:37 Blood leukocytes automated count (number/volume) 18.6 10*3/uL 4.3-11.0 Blood erythrocytes automated count (number/volume) 4.09 10*6/uL 4.35-5.85 Venous blood hemoglobin measurement (mass/volume) 12.3 g/dL 13.3-17.7 Blood hematocrit (volume fraction) 37 % 40-54 Automated erythrocyte mean corpuscular volume 91 [ foz_us] 80-99 Automated erythrocyte mean corpuscular h emoglobin (mass per erythrocyte) 30 pg 25-34 Automated erythrocyte mean corpuscular h emoglobin concentration measurement (mass/volume) 33 g/dL 32-36 Automated erythrocyte distribution width ratio 14. 3 % 10.0- 14.5 Automated blood platelet count (count/volume) 464 10*3/uL 130-400 Automated blood platelet mean volume measurement 9.8 [foz_us] 7.4-10.4 Automated blood neutrophils/100 leukocytes 87 % 42-75 Automated blood lymphocytes/100 leukocytes 6 % 12-44 Blood monocytes/100 leukocytes 7 % 0-12 Automated blood eosinophils/100 leukocytes 0 % 0-10 Automated blood basophils/100 leukocytes 0 % 0-10 Blood neutrophils automated count (number/volume) 16.2 10*3 1.8-7.8 Blood lymphocytes automated count (number/volume) 1.1 10*3 1.0-4.0 Blood monocytes automated count (number/volume) 1. 2 10*3 0.0-1.0 Automated eosinophil count 0.0 10*3/uL 0 .0-0.3 Automated blood basophil count (count/volume) 0.0 10*3/uL 0.0-0.1 Comprehensive metabolic panel - 02/17/20 18:37 Serum or plasma sodium measurement (moles/volume) 141 mmol/L 135-145 Serum or plasma potassium measurement (moles/volume) 4.3 mmol/L 3.6-5.0 Serum or plasma chloride measurement (moles/volume) 103 mmol/L 98-107 Carbon dioxide 24 mmol/L 21-32 Serum or plasma anion gap determination (moles/volume) 14 mmol/L 5-14 Serum or plasma urea nitrogen measurement (mass/volume ) 23 mg/dL 7-18 Serum or plasma creatinine measurement (mass/volume) 0.80 mg/dL 0.60-1.30 Serum or plasma urea nitrogen/creatinine mass ratio 29 NRG Serum or plasma creatinine measurement w ith calculation of estimated glomerular filtration rate > NRG Serum or plasma glucose measurement (mass/volume) 188 mg/dL 70-105 Serum or plasma calcium measurement (mass/volume) 8.8 mg/dL 8.5-10.1 Serum or plasma total bilirubin measurement (mass/volu me) 0.7 mg/dL 0.1-1.0 Serum or plasma alkaline phosphatase serina surement (enzymatic activity/volume) 111 U/L 40-136 Serum or plasma aspartate aminotransfera se measurement (enzymatic activity/volume) 22 U/L 5-34 Serum or plasma alanine aminotransferase measurement (enzymatic activity/volume) 31 U/L 0-55 Serum or plasma protein measurement (mass/volume) 6.8 g/dL 6.4-8.2 Serum or plasma albumin measurement (mass/volume) 3.3 g/dL 3.2-4.5 CALCIUM CORRECTED 9.4 mg/dL 8.5-10.1 Serum or plasma phosphate measurement (m ass/volume) - 02/17/20 18:37 Serum or plasma phosphate measurement (mass/volume) 2.5 mg/dL 2.3-4.7 Magnesium - 02/17/20 18:37 Magnesium 2.1 mg/dL 1.6-2.4 [id number] - 02/17/20 20:20 Prothrombin time (PT) in platelet poor plasma by coagu lation assay 19.0 s 12.2-14.7 INR in platelet poor plasma or blood by coagulation as say 1.6 0.8-1.4 Activated partial thromboplastin time (a PTT) in platelet poor plasma bycoagulation assay 38 s 24-35 Fibrin D-dimer FEU measurement in platelet poor plasma (mass/volume) 2.31 ug/mL 0.00-0.49 Fibrinogen measurement in platelet poor plasma by coagulation assay (mass/volume) 231 mg/dL 221-496 THYROID STIMULATING HORMONE - 02/17/20 2 0:20 THYROID STIMULATING HORMONE 1.34 u[iU]/mL 0.35-4.94 Complete blood count (CBC) with automate d white blood cell (WBC) differential - 02/18/20 02:40 Blood leukocytes automated count (number/volume) 10.1 10*3/uL 4.3-11.0 Blood erythrocytes automated count (number/volume) 3.34 10*6/uL 4.35-5.85 Venous blood hemoglobin measurement (mass/volume) 9.8 g/dL 13.3-17.7 Blood hematocrit (volume fraction) 31 % 40-54 Automated erythrocyte mean corpuscular volume 93 [ foz_us] 80-99 Automated erythrocyte mean corpuscular h emoglobin (mass per erythrocyte) 29 pg 25-34 Automated erythrocyte mean corpuscular h emoglobin concentration measurement (mass/volume) 32 g/dL 32-36 Automated erythrocyte distribution width ratio 14. 0 % 10.0- 14.5 Automated blood platelet count (count/volume) 287 10*3/uL 130-400 Automated blood platelet mean volume measurement 9.8 [foz_us] 7.4-10.4 Automated blood neutrophils/100 leukocytes 77 % 42-75 Automated blood lymphocytes/100 leukocytes 12 % 12-44 Blood monocytes/100 leukocytes 11 % 0-12 Automated blood eosinophils/100 leukocytes 0 % 0-10 Automated blood basophils/100 leukocytes 0 % 0-10 Blood neutrophils automated count (number/volume) 7.7 10*3 1.8-7.8 Blood lymphocytes automated count (number/volume) 1.2 10*3 1.0-4.0 Blood monocytes automated count (number/volume) 1. 1 10*3 0.0-1.0 Automated eosinophil count 0.0 10*3/uL 0 .0-0.3 Automated blood basophil count (count/volume) 0.0 10*3/uL 0.0-0.1 Whole blood basic metabolic panel - 01/30 04/21 02:40 Serum or plasma sodium measurement (moles/volume) 132 mmol/L 135-145 Serum or plasma potassium measurement (moles/volume) 3.6 mmol/L 3.6-5.0 Serum or plasma chloride measurement (moles/volume) 99 mmol/L 98-107 Carbon dioxide 24 mmol/L 21-32 Serum or plasma anion gap determination (moles/volume) 9 mmol/L 5-14 Serum or plasma urea nitrogen measurement (mass/volume ) 22 mg/dL 7-18 Serum or plasma creatinine measurement (mass/volume) 0.74 mg/dL 0.60-1.30 Serum or plasma urea nitrogen/creatinine mass ratio 30 NRG Serum or plasma creatinine measurement w ith calculation of estimated glomerular filtration rate > NRG Serum or plasma glucose measurement (mass/volume) 357 mg/dL 70-105 Serum or plasma calcium measurement (mass/volume) 7.8 mg/dL 8.5-10.1 Serum or plasma phosphate measurement (m ass/volume) - 02/18/20 02:40 Serum or plasma phosphate measurement (mass/volume) 2.5 mg/dL 2.3-4.7 Magnesium - 02/18/20 02:40 Magnesium 1.9 mg/dL 1.6-2.4 Whole blood basic metabolic panel - 01/31 03:25 Serum or plasma sodium measurement (moles/volume) 140 mmol/L 135-145 Serum or plasma potassium measurement (moles/volume) 3.6 mmol/L 3.6-5.0 Serum or plasma chloride measurement (moles/volume) 106 mmol/L 98-107 Carbon dioxide 26 mmol/L 21-32 Serum or plasma anion gap determination (moles/volume) 8 mmol/L 5-14 Serum or plasma urea nitrogen measurement (mass/volume ) 21 mg/dL 7-18 Serum or plasma creatinine measurement (mass/volume) 0.71 mg/dL 0.60-1.30 Serum or plasma urea nitrogen/creatinine mass ratio 30 NRG Serum or plasma creatinine measurement w ith calculation of estimated glomerular filtration rate > NRG Serum or plasma glucose measurement (mass/volume) 105 mg/dL 70-105 Serum or plasma calcium measurement (mass/volume) 8.1 mg/dL 8.5-10.1 Serum or plasma phosphate measurement (m ass/volume) - 02/19/20 03:25 Serum or plasma phosphate measurement (mass/volume) 2.8 mg/dL 2.3-4.7 Magnesium - 02/19/20 03:25 Magnesium 2.1 mg/dL 1.6-2.4 Complete blood count (CBC) with automate d white blood cell (WBC) differential - 02/19/20 03:25 Blood leukocytes automated count (number/volume) 10.8 10*3/uL 4.3-11.0 Blood erythrocytes automated count (number/volume) 3.50 10*6/uL 4.35-5.85 Venous blood hemoglobin measurement (mass/volume) 10.5 g/dL 13.3-17.7 Blood hematocrit (volume fraction) 33 % 40-54 Automated erythrocyte mean corpuscular volume 93 [ foz_us] 80-99 Automated erythrocyte mean corpuscular h emoglobin (mass per erythrocyte) 30 pg 25-34 Automated erythrocyte mean corpuscular h emoglobin concentration measurement (mass/volume) 32 g/dL 32-36 Automated erythrocyte distribution width ratio 14. 0 % 10.0- 14.5 Automated blood platelet count (count/volume) 272 10*3/uL 130-400 Automated blood platelet mean volume measurement 10.2 [foz_us] 7.4-10.4 Automated blood neutrophils/100 leukocytes 75 % 42-75 Automated blood lymphocytes/100 leukocytes 13 % 12-44 Blood monocytes/100 leukocytes 9 % 0-12 Automated blood eosinophils/100 leukocytes 3 % 0-10 Automated blood basophils/100 leukocytes 0 % 0-10 Blood neutrophils automated count (number/volume) 8.1 10*3 1.8-7.8 Blood lymphocytes automated count (number/volume) 1.4 10*3 1.0-4.0 Blood monocytes automated count (number/volume) 1. 0 10*3 0.0-1.0 Automated eosinophil count 0.3 10*3/uL 0 .0-0.3 Automated blood basophil count (count/volume) 0.0 10*3/uL 0.0-0.1 PROCALCITONIN (PCT) - 02/19/20 03:25 PROCALCITONIN (PCT) 0.03 ng/mL <0.10 Complete blood count (CBC) with automate d white blood cell (WBC) differential - 02/20/20 01:37 Blood leukocytes automated count (number/volume) 12.6 10*3/uL 4.3-11.0 Blood erythrocytes automated count (number/volume) 3.70 10*6/uL 4.35-5.85 Venous blood hemoglobin measurement (mass/volume) 11.0 g/dL 13.3-17.7 Blood hematocrit (volume fraction) 34 % 40-54 Automated erythrocyte mean corpuscular volume 92 [ foz_us] 80-99 Automated erythrocyte mean corpuscular h emoglobin (mass per erythrocyte) 30 pg 25-34 Automated erythrocyte mean corpuscular h emoglobin concentration measurement (mass/volume) 32 g/dL 32-36 Automated erythrocyte distribution width ratio 14. 3 % 10.0- 14.5 Automated blood platelet count (count/volume) 264 10*3/uL 130-400 Automated blood platelet mean volume measurement 10.0 [foz_us] 7.4-10.4 Automated blood neutrophils/100 leukocytes 74 % 42-75 Automated blood lymphocytes/100 leukocytes 15 % 12-44 Blood monocytes/100 leukocytes 8 % 0-12 Automated blood eosinophils/100 leukocytes 3 % 0-10 Automated blood basophils/100 leukocytes 0 % 0-10 Blood neutrophils automated count (number/volume) 9.3 10*3 1.8-7.8 Blood lymphocytes automated count (number/volume) 1.9 10*3 1.0-4.0 Blood monocytes automated count (number/volume) 1. 0 10*3 0.0-1.0 Automated eosinophil count 0.4 10*3/uL 0 .0-0.3 Automated blood basophil count (count/volume) 0.0 10*3/uL 0.0-0.1 Whole blood basic metabolic panel - 01/31 08/21 01:37 Serum or plasma sodium measurement (moles/volume) 139 mmol/L 135-145 Serum or plasma potassium measurement (moles/volume) 3.9 mmol/L 3.6-5.0 Serum or plasma chloride measurement (moles/volume) 105 mmol/L 98-107 Carbon dioxide 25 mmol/L 21-32 Serum or plasma anion gap determination (moles/volume) 9 mmol/L 5-14 Serum or plasma urea nitrogen measurement (mass/volume ) 19 mg/dL 7-18 Serum or plasma creatinine measurement (mass/volume) 0.73 mg/dL 0.60-1.30 Serum or plasma urea nitrogen/creatinine mass ratio 26 NRG Serum or plasma creatinine measurement w ith calculation of estimated glomerular filtration rate > NRG Serum or plasma glucose measurement (mass/volume) 105 mg/dL 70-105 Serum or plasma calcium measurement (mass/volume) 8.3 mg/dL 8.5-10.1 Serum or plasma phosphate measurement (m ass/volume) - 02/20/20 01:37 Serum or plasma phosphate measurement (mass/volume) 2.5 mg/dL 2.3-4.7 Magnesium - 02/20/20 01:37 Magnesium 2.1 mg/dL 1.6-2.4 Complete blood count (CBC) with automate d white blood cell (WBC) differential - 02/21/20 09:30 Blood leukocytes automated count (number/volume) 12.3 10*3/uL 4.3-11.0 Blood erythrocytes automated count (number/volume) 3.84 10*6/uL 4.35-5.85 Venous blood hemoglobin measurement (mass/volume) 11.4 g/dL 13.3-17.7 Blood hematocrit (volume fraction) 35 % 40-54 Automated erythrocyte mean corpuscular volume 92 [ foz_us] 80-99 Automated erythrocyte mean corpuscular h emoglobin (mass per erythrocyte) 30 pg 25-34 Automated erythrocyte mean corpuscular h emoglobin concentration measurement (mass/volume) 32 g/dL 32-36 Automated erythrocyte distribution width ratio 14. 5 % 10.0- 14.5 Automated blood platelet count (count/volume) 271 10*3/uL 130-400 Automated blood platelet mean volume measurement 10.4 [foz_us] 7.4-10.4 Automated blood neutrophils/100 leukocytes 74 % 42-75 Automated blood lymphocytes/100 leukocytes 13 % 12-44 Blood monocytes/100 leukocytes 7 % 0-12 Automated blood eosinophils/100 leukocytes 5 % 0-10 Automated blood basophils/100 leukocytes 1 % 0-10 Blood neutrophils automated count (number/volume) 9.1 10*3 1.8-7.8 Blood lymphocytes automated count (number/volume) 1.6 10*3 1.0-4.0 Blood monocytes automated count (number/volume) 0. 9 10*3 0.0-1.0 Automated eosinophil count 0.6 10*3/uL 0 .0-0.3 Automated blood basophil count (count/volume) 0.1 10*3/uL 0.0-0.1 Whole blood basic metabolic panel - 01/31 09/21 09:30 Serum or plasma sodium measurement (moles/volume) 140 mmol/L 135-145 Serum or plasma potassium measurement (moles/volume) 3.6 mmol/L 3.6-5.0 Serum or plasma chloride measurement (moles/volume) 106 mmol/L 98-107 Carbon dioxide 26 mmol/L 21-32 Serum or plasma anion gap determination (moles/volume) 8 mmol/L 5-14 Serum or plasma urea nitrogen measurement (mass/volume ) 21 mg/dL 7-18 Serum or plasma creatinine measurement (mass/volume) 0.81 mg/dL 0.60-1.30 Serum or plasma urea nitrogen/creatinine mass ratio 26 NRG Serum or plasma creatinine measurement w ith calculation of estimated glomerular filtration rate > NRG Serum or plasma glucose measurement (mass/volume) 168 mg/dL 70-105 Serum or plasma calcium measurement (mass/volume) 8.4 mg/dL 8.5-10.1 Serum or plasma phosphate measurement (m ass/volume) - 02/21/20 09:30 Serum or plasma phosphate measurement (mass/volume) 2.4 mg/dL 2.3-4.7 Magnesium - 02/21/20 09:30 Magnesium 2.0 mg/dL 1.6-2.4 Complete blood count (CBC) with automate d white blood cell (WBC) differential - 02/22/20 04:43 Blood leukocytes automated count (number/volume) 14.7 10*3/uL 4.3-11.0 Blood erythrocytes automated count (number/volume) 3.67 10*6/uL 4.35-5.85 Venous blood hemoglobin measurement (mass/volume) 10.8 g/dL 13.3-17.7 Blood hematocrit (volume fraction) 34 % 40-54 Automated erythrocyte mean corpuscular volume 93 [ foz_us] 80-99 Automated erythrocyte mean corpuscular h emoglobin (mass per erythrocyte) 29 pg 25-34 Automated erythrocyte mean corpuscular h emoglobin concentration measurement (mass/volume) 32 g/dL 32-36 Automated erythrocyte distribution width ratio 14. 9 % 10.0- 14.5 Automated blood platelet count (count/volume) 269 10*3/uL 130-400 Automated blood platelet mean volume measurement 10.6 [foz_us] 7.4-10.4 Automated blood neutrophils/100 leukocytes 79 % 42-75 Automated blood lymphocytes/100 leukocytes 12 % 12-44 Blood monocytes/100 leukocytes 7 % 0-12 Automated blood eosinophils/100 leukocytes 2 % 0-10 Automated blood basophils/100 leukocytes 0 % 0-10 Blood neutrophils automated count (number/volume) 11.6 10*3 1.8-7.8 Blood lymphocytes automated count (number/volume) 1.7 10*3 1.0-4.0 Blood monocytes automated count (number/volume) 1. 0 10*3 0.0-1.0 Automated eosinophil count 0.3 10*3/uL 0 .0-0.3 Automated blood basophil count (count/volume) 0.0 10*3/uL 0.0-0.1 Whole blood basic metabolic panel - 01/31 10/19 04:43 Serum or plasma sodium measurement (moles/volume) 141 mmol/L 135-145 Serum or plasma potassium measurement (moles/volume) 3.7 mmol/L 3.6-5.0 Serum or plasma chloride measurement (moles/volume) 107 mmol/L 98-107 Carbon dioxide 25 mmol/L 21-32 Serum or plasma anion gap determination (moles/volume) 9 mmol/L 5-14 Serum or plasma urea nitrogen measurement (mass/volume ) 25 mg/dL 7-18 Serum or plasma creatinine measurement (mass/volume) 0.76 mg/dL 0.60-1.30 Serum or plasma urea nitrogen/creatinine mass ratio 33 NRG Serum or plasma creatinine measurement w ith calculation of estimated glomerular filtration rate > NRG Serum or plasma glucose measurement (mass/volume) 94 mg/dL 70-105 Serum or plasma calcium measurement (mass/volume) 8.4 mg/dL 8.5-10.1 Serum or plasma phosphate measurement (m ass/volume) - 02/22/20 04:43 Serum or plasma phosphate measurement (mass/volume) 3.0 mg/dL 2.3-4.7 Magnesium - 02/22/20 04:43 Magnesium 2.1 mg/dL 1.6-2.4 Manual absolute plasma cell count - 01/31 10/19 04:43 Blood monocytes/100 leukocytes 7 % NRG Manual blood segmented neutrophils/100 leukocytes 79 % NRG Manual blood lymphocytes/100 leukocytes 12 % NRG Manual eosinophils/100 leukocytes in nose 2 % NRG Whole blood basic metabolic panel - 01/31 11/19 05:05 Serum or plasma sodium measurement (moles/volume) 142 mmol/L 135-145 Serum or plasma potassium measurement (moles/volume) 3.6 mmol/L 3.6-5.0 Serum or plasma chloride measurement (moles/volume) 108 mmol/L 98-107 Carbon dioxide 26 mmol/L -32 Serum or plasma anion gap determination (moles/volume) 8 mmol/L 5-14 Serum or plasma urea nitrogen measurement (mass/volume ) 26 mg/dL 7-18 Serum or plasma creatinine measurement (mass/volume) 0.72 mg/dL 0.60-1.30 Serum or plasma urea nitrogen/creatinine mass ratio 36 NRG Serum or plasma creatinine measurement w ith calculation of estimated glomerular filtration rate > NRG Serum or plasma glucose measurement (mass/volume) 98 mg/dL 70-105 Serum or plasma calcium measurement (mass/volume) 8.4 mg/dL 8.5-10.1 Complete blood count (CBC) with automate d white blood cell (WBC) differential - 02/23/20 05:05 Blood leukocytes automated count (number/volume) 14.8 10*3/uL 4.3-11.0 Blood erythrocytes automated count (number/volume) 3.46 10*6/uL 4.35-5.85 Venous blood hemoglobin measurement (mass/volume) 10.3 g/dL 13.3-17.7 Blood hematocrit (volume fraction) 32 % 40-54 Automated erythrocyte mean corpuscular volume 94 [ foz_us] 80-99 Automated erythrocyte mean corpuscular h emoglobin (mass per erythrocyte) 30 pg 25-34 Automated erythrocyte mean corpuscular h emoglobin concentration measurement (mass/volume) 32 g/dL 32-36 Automated erythrocyte distribution width ratio 14. 9 % 10.0- 14.5 Automated blood platelet count (count/volume) 252 10*3/uL 130-400 Automated blood platelet mean volume measurement 10.9 [foz_us] 7.4-10.4 Automated blood neutrophils/100 leukocytes 78 % 42-75 Automated blood lymphocytes/100 leukocytes 10 % 12-44 Blood monocytes/100 leukocytes 8 % 0-12 Automated blood eosinophils/100 leukocytes 3 % 0-10 Automated blood basophils/100 leukocytes 0 % 0-10 Blood neutrophils automated count (number/volume) 11.6 10*3 1.8-7.8 Blood lymphocytes automated count (number/volume) 1.5 10*3 1.0-4.0 Blood monocytes automated count (number/volume) 1. 2 10*3 0.0-1.0 Automated eosinophil count 0.5 10*3/uL 0 .0-0.3 Automated blood basophil count (count/volume) 0.0 10*3/uL 0.0-0.1 Serum or plasma phosphate measurement (m ass/volume) - 02/23/20 05:05 Serum or plasma phosphate measurement (mass/volume) 3.2 mg/dL 2.3-4.7 Magnesium - 02/23/20 05:05 Magnesium 2.1 mg/dL 1.6-2.4 Complete blood count (CBC) with automate d white blood cell (WBC) differential - 02/24/20 06:08 Blood leukocytes automated count (number/volume) 13.3 10*3/uL 4.3-11.0 Blood erythrocytes automated count (number/volume) 3.52 10*6/uL 4.35-5.85 Venous blood hemoglobin measurement (mass/volume) 10.5 g/dL 13.3-17.7 Blood hematocrit (volume fraction) 33 % 40-54 Automated erythrocyte mean corpuscular volume 94 [ foz_us] 80-99 Automated erythrocyte mean corpuscular h emoglobin (mass per erythrocyte) 30 pg 25-34 Automated erythrocyte mean corpuscular h emoglobin concentration measurement (mass/volume) 32 g/dL 32-36 Automated erythrocyte distribution width ratio 14. 9 % 10.0- 14.5 Automated blood platelet count (count/volume) 248 10*3/uL 130-400 Automated blood platelet mean volume measurement 10.5 [foz_us] 7.4-10.4 Automated blood neutrophils/100 leukocytes 75 % 42-75 Automated blood lymphocytes/100 leukocytes 13 % 12-44 Blood monocytes/100 leukocytes 8 % 0-12 Automated blood eosinophils/100 leukocytes 5 % 0-10 Automated blood basophils/100 leukocytes 0 % 0-10 Blood neutrophils automated count (number/volume) 9.9 10*3 1.8-7.8 Blood lymphocytes automated count (number/volume) 1.7 10*3 1.0-4.0 Blood monocytes automated count (number/volume) 1. 1 10*3 0.0-1.0 Automated eosinophil count 0.6 10*3/uL 0 .0-0.3 Automated blood basophil count (count/volume) 0.0 10*3/uL 0.0-0.1 Whole blood basic metabolic panel - 01/31 12/19 06:08 Serum or plasma sodium measurement (moles/volume) 141 mmol/L 135-145 Serum or plasma potassium measurement (moles/volume) 3.7 mmol/L 3.6-5.0 Serum or plasma chloride measurement (moles/volume) 108 mmol/L 98-107 Carbon dioxide 25 mmol/L 21-32 Serum or plasma anion gap determination (moles/volume) 8 mmol/L 5-14 Serum or plasma urea nitrogen measurement (mass/volume ) 19 mg/dL 7-18 Serum or plasma creatinine measurement (mass/volume) 0.68 mg/dL 0.60-1.30 Serum or plasma urea nitrogen/creatinine mass ratio 28 NRG Serum or plasma creatinine measurement w ith calculation of estimated glomerular filtration rate > NRG Serum or plasma glucose measurement (mass/volume) 94 mg/dL 70-105 Serum or plasma calcium measurement (mass/volume) 8.6 mg/dL 8.5-10.1 Serum or plasma phosphate measurement (m ass/volume) - 02/24/20 06:08 Serum or plasma phosphate measurement (mass/volume) 3.2 mg/dL 2.3-4.7 Magnesium - 02/24/20 06:08 Magnesium 2.0 mg/dL 1.6-2.4 Complete blood count (CBC) with automate d white blood cell (WBC) differential - 02/25/20 05:10 Blood leukocytes automated count (number/volume) 10.5 10*3/uL 4.3-11.0 Blood erythrocytes automated count (number/volume) 3.41 10*6/uL 4.35-5.85 Venous blood hemoglobin measurement (mass/volume) 10.3 g/dL 13.3-17.7 Blood hematocrit (volume fraction) 32 % 40-54 Automated erythrocyte mean corpuscular volume 94 [ foz_us] 80-99 Automated erythrocyte mean corpuscular h emoglobin (mass per erythrocyte) 30 pg 25-34 Automated erythrocyte mean corpuscular h emoglobin concentration measurement (mass/volume) 32 g/dL 32-36 Automated erythrocyte distribution width ratio 14. 9 % 10.0- 14.5 Automated blood platelet count (count/volume) 250 10*3/uL 130-400 Automated blood platelet mean volume measurement 10.5 [foz_us] 7.4-10.4 Automated blood neutrophils/100 leukocytes 70 % 42-75 Automated blood lymphocytes/100 leukocytes 13 % 12-44 Blood monocytes/100 leukocytes 9 % 0-12 Automated blood eosinophils/100 leukocytes 8 % 0-10 Automated blood basophils/100 leukocytes 1 % 0-10 Blood neutrophils automated count (number/volume) 7.4 10*3 1.8-7.8 Blood lymphocytes automated count (number/volume) 1.3 10*3 1.0-4.0 Blood monocytes automated count (number/volume) 0. 9 10*3 0.0-1.0 Automated eosinophil count 0.8 10*3/uL 0 .0-0.3 Automated blood basophil count (count/volume) 0.1 10*3/uL 0.0-0.1 Whole blood basic metabolic panel - 01/31 01/19 05:10 Serum or plasma sodium measurement (moles/volume) 140 mmol/L 135-145 Serum or plasma potassium measurement (moles/volume) 3.6 mmol/L 3.6-5.0 Serum or plasma chloride measurement (moles/volume) 107 mmol/L 98-107 Carbon dioxide 24 mmol/L -32 Serum or plasma anion gap determination (moles/volume) 9 mmol/L 5-14 Serum or plasma urea nitrogen measurement (mass/volume ) 20 mg/dL 7-18 Serum or plasma creatinine measurement (mass/volume) 0.70 mg/dL 0.60-1.30 Serum or plasma urea nitrogen/creatinine mass ratio 29 NRG Serum or plasma creatinine measurement w ith calculation of estimated glomerular filtration rate > NRG Serum or plasma glucose measurement (mass/volume) 95 mg/dL 70-105 Serum or plasma calcium measurement (mass/volume) 8.3 mg/dL 8.5-10.1 Serum or plasma phosphate measurement (m ass/volume) - 02/25/20 05:10 Serum or plasma phosphate measurement (mass/volume) 3.4 mg/dL 2.3-4.7 Magnesium - 02/25/20 05:10 Magnesium 1.8 mg/dL 1.6-2.4 Whole blood basic metabolic panel - 01/31 02/18 05:00 Serum or plasma sodium measurement (moles/volume) 140 mmol/L 135-145 Serum or plasma potassium measurement (moles/volume) 3.7 mmol/L 3.6-5.0 Serum or plasma chloride measurement (moles/volume) 107 mmol/L 98-107 Carbon dioxide 24 mmol/L - Serum or plasma anion gap determination (moles/volume) 9 mmol/L 5-14 Serum or plasma urea nitrogen measurement (mass/volume ) 17 mg/dL 7-18 Serum or plasma creatinine measurement (mass/volume) 0.76 mg/dL 0.60-1.30 Serum or plasma urea nitrogen/creatinine mass ratio 22 NRG Serum or plasma creatinine measurement w ith calculation of estimated glomerular filtration rate > NRG Serum or plasma glucose measurement (mass/volume) 97 mg/dL 70-105 Serum or plasma calcium measurement (mass/volume) 8.4 mg/dL 8.5-10.1 Serum or plasma phosphate measurement (m ass/volume) - 02/26/20 05:00 Serum or plasma phosphate measurement (mass/volume) 3.3 mg/dL 2.3-4.7 Magnesium - 02/26/20 05:00 Magnesium 1.9 mg/dL 1.6-2.4 Complete blood count (CBC) with automate d white blood cell (WBC) differential - 02/26/20 05:00 Blood leukocytes automated count (number/volume) 10.1 10*3/uL 4.3-11.0 Blood erythrocytes automated count (number/volume) 3.53 10*6/uL 4.35-5.85 Venous blood hemoglobin measurement (mass/volume) 10.5 g/dL 13.3-17.7 Blood hematocrit (volume fraction) 33 % 40-54 Automated erythrocyte mean corpuscular volume 93 [ foz_us] 80-99 Automated erythrocyte mean corpuscular h emoglobin (mass per erythrocyte) 30 pg 25-34 Automated erythrocyte mean corpuscular h emoglobin concentration measurement (mass/volume) 32 g/dL 32-36 Automated erythrocyte distribution width ratio 15. 0 % 10.0- 14.5 Automated blood platelet count (count/volume) 259 10*3/uL 130-400 Automated blood platelet mean volume measurement 10.6 [foz_us] 7.4-10.4 Automated blood neutrophils/100 leukocytes 72 % 42-75 Automated blood lymphocytes/100 leukocytes 13 % 12-44 Blood monocytes/100 leukocytes 7 % 0-12 Automated blood eosinophils/100 leukocytes 7 % 0-10 Automated blood basophils/100 leukocytes 1 % 0-10 Blood neutrophils automated count (number/volume) 7.3 10*3 1.8-7.8 Blood lymphocytes automated count (number/volume) 1.3 10*3 1.0-4.0 Blood monocytes automated count (number/volume) 0. 8 10*3 0.0-1.0 Automated eosinophil count 0.7 10*3/uL 0 .0-0.3 Automated blood basophil count (count/volume) 0.1 10*3/uL 0.0-0.1 Encounters ACCT No. Visit Date/Time Discharge Status Pt. Type Provider Facility Loc./Unit Complaint [id number] 01/13/2020 12:00:00 01/13/2020 23:59: 59 CLS Outpatient [facility] [id number] 01/25/2020 13:32:[address] Inpatient STEFANI FORDE DO [facility] 4TH COVID 19;RESP. FAILURE
[2020-02-28] MEDS: ALBUTEROL/IPRATROP (COMBIVENT RESPIMAT) 4 GM INHALER IH SCH ×4 (03:21→19:41)
[2020-02-28] MEDS: CATHETER FLUSH 10 ML SYR IV SCH ×3 (05:42→20:48)
--- NOTE | 2020-02-28 05:55 | PM&R Progress Note ---
Subjective HPI/CC On Admission Date Seen by Provider: Feb 28, 2020 Time Seen by Provider: 10:30 Subjective/Events-last exam Hgb is 10.6 90-93% on room air currently IS has been ordered Bowels moved yesterday Eating and drinking well Overall feel much better Conferred with RN Reviewed therapy noted Checked meds and labs Review of Systems General: Fatigue, Malaise Neurological: Weakness Objective Exam Vital Signs Vital Signs Date Time Temp Pulse Resp B/P (MAP) Pulse Ox O2 Delivery O2 Flow Rate FiO2 02/28/20 19:41 85 Room Air 02/28/20 18:11 36.8 67 16 123/73 (90) Capillary Refill : Less Than 3 Seconds General Appearance: No Apparent Distress, WD/WN HEENT: PERRL/EOMI, Normal ENT Inspection, Pharynx Normal Neck: Full Range of Motion, Normal Inspection, Non Tender, Supple, Carotid Bruit Respiratory: Chest Non Tender, Lungs Clear, Normal Breath Sounds, No Accessory Muscle Use, No Respiratory Distress, Decreased Breath Sounds Cardiovascular: Regular Rate, Rhythm, No Edema, No Gallop, No JVD, No Murmur, Normal Peripheral Pulses Gastrointestinal: Normal Bowel Sounds, No Organomegaly, No Pulsatile Mass, Non Tender, Soft Back: Normal Inspection, No CVA Tenderness, No Vertebral Tenderness Extremity: Normal Capillary Refill, Normal Inspection, Normal Range of Motion, Non Tender, No Calf Tenderness, No Pedal Edema Neurologic/Psychiatric: Alert, Oriented x3, No Motor/Sensory Deficits, Normal Mood/Affect, forming fixer II-XII Norm as Tested, Abnormal Gait, Motor Weakness (gene ralized all extremities 4/5) Skin: Normal Color, Warm/Dry Lymphatic: No Adenopathy Results/Procedures Lab Laboratory Tests 02/28/20 05:45 Patient resulted labs reviewed. FIM Transfers Therapy Code Descriptions/Definitions Functional [place] Measure: 0=Not Assessed/NA 4=Minimal Assistance 1=Total Assistance 5=Supervision or Setup 2=Maximal Assistance 6=Modified [place] 3=Moderate Assistance 7=Complete IndependenceSCALE: Activities may be completed with or without assistive devices. 1-Ijjgtffetk-cqvowid completes the activity by him/herself with no assistance from a helper. 5-Set-up or Clean-up Assistance-helper sets up or cleans up; patient completes activity. [place] assists only prior to or following the activity. 4-Supervision or Touching Assistance-helper provides verbal cues and/or touching/steadying and/or contact guard assistance as patient completes activity. Assistance may be provided throughout the activity or intermittently. 3-Partial/Moderate Assistance-helper does LESS THAN HALF the effort. [place] lifts, holds or supports trunk or limbs, but provides less than half the effort. 2-Substantial/Maximal Assistance-helper does MORE THAN HALF the effort. [place] lifts or holds trunk or limbs and provides more than half the effort. 6-Cqptelyhj-bbboux does ALL the effort. Patient does none of the effort to complete the activity. Or, the assistance of 2 or more helpers is required for the patient to complete the activity. If activity was not attempted, code reason: 7-Patient Refused. 9-Not Applicable-not attempted and the patient did not perform the activity before the current illness, exacerbation or injury. 10-Not Attempted due to Environmental Limitations-(lack of equipment, weather restraints, etc.). 88-Not Attempted due to Medical Conditions or Safety Concerns. Assessment/Plan Assessment and Plan Assess & Plan/Chief Complaint Santhosh Lima is a 54 year old male who arrived at [facility] ER 01/24 with SOB, he is an employee of [employer] who was known to be COVID positive from testing the Wednesday before arrival, respiratory failure continued in ER necessitating intubation, soon became hypotensive and bradycardic requiring epi and atropine as well as chest compressions, was brought to ICU. Hypotension stabilized with levophed, IV fluids. Diagnosed with COVID+ ARDS, completed course of remdesivir, decadron. He was sedated and intubated on vent until 02/12 due to difficulties with weaning, he would be agitated and tachypneic with attempted weaning. On 02/04 he had worsening leukocytosis and fever of 101, diagnosed with enterobacter PNA, treated with course of Merrem completed 02/19. 02/12 he had an episode of paroxysmal atrial fibrillation and frequent PVCs, cardiology consu lted, treated with amiodarone and mexiletine. He was confused for several days following end of sedation and intubation. Transferred to the Med/Surg 02/19, noted to be very weak, participated in PT. Confusion had resolved by this time. Transferred to IRF 02/27, delayed several days only due to wait for insurance authorization, had been improving well with PT. Stanton Julieta, MSIV Assessment: Critical illness myopathy Hypoxia COVID-19 ARDS AF w/RVR hx OAC for CVA PPx Plan: IRF protocol OAC Monitor AF 02/28/20: Maintain protocol Oxygen Supportive care Incentive Spirometer Strengthened to resolve COVID residual (1) Critical illness myopathy Status: Acute (2) COVID-19 Status: Acute (3) Elevated d-dimer Status: Acute (4) Shock Status: Resolved Resolution Date/Time: 01/27/20 @ 10:41 (5) Elevated LFTs Status: Resolved Resolution Date/Time: 01/28/20 @ 11:25 (6) Acute respiratory failure (7) Cardiac arrest Status: Acute (8) Pneumonia (9) Hypotension (10) ARDS (adult respiratory distress syndrome) Status: Resolved Resolution Date/Time: 02/21/20 @ 15:46 (11) Atrial fibrillation (12) Atrial fibrillation with RVR Status: Resolved Resolution Date/Time: 02/24/20 @ 13:06 ALISA MUÑOZ DO Feb 28, 2020 05:55
[2020-02-28 05:56] LABS: BASOPHILS % (AUTO) 0 % (0-10); EOSINOPHILS # (AUTO) 0.7 10^3/uL (0.0-0.3); EOSINOPHILS % (AUTO) 8 % (0-10); HEMATOCRIT 33 % (40-54); HEMOGLOBIN 10.6 G/DL (13.3-17.7); LYMPHOCYTES % (AUTO) 11 % (12-44); MEAN CORPUSCULAR HEMOGLOBIN 30 PG (25-34); MEAN CORPUSCULAR HGB CONC 32 G/DL (32-36); MEAN CORPUSCULAR VOLUME 94 FL (80-99); MEAN PLATELET VOLUME 10.2 FL (7.4-10.4); MONOCYTES # (AUTO) 0.7 X 10^3 (0.0-1.0); MONOCYTES % (AUTO) 7 % (0-12); NEUTROPHILS # (AUTO) 6.8 X 10^3 (1.8-7.8); NEUTROPHILS % (AUTO) 74 % (42-75); PLATELET COUNT 267 10^3/uL (130-400); RED CELL DISTRIBUTION WIDTH 15.4 % (10.0-14.5); WHITE BLOOD COUNT 9.2 10^3/uL (4.3-11.0)
[2020-02-28 06:09] LABS: CHLORIDE 110 MMOL/L (98-107); POTASSIUM 3.7 MMOL/L (3.6-5.0); SODIUM 143 MMOL/L (135-145)
[2020-02-28 06:11] LABS: CALCIUM 8.3 MG/DL (8.5-10.1)
[2020-02-28 06:12] VITALS: BP 115/73
[2020-02-28 06:12] LABS: GLUCOSE 96 MG/DL (70-105); TOTAL PROTEIN 5.5 GM/DL (6.4-8.2)
[2020-02-28 06:13] LABS: CARBON DIOXIDE 25 MMOL/L (21-32)
[2020-02-28 06:14] LABS: BILIRUBIN,TOTAL 0.4 MG/DL (0.1-1.0)
[2020-02-28 06:15] LABS: ALKALINE PHOSPHATASE 87 U/L (40-136); CREATININE SERUM 0.77 MG/DL (0.60-1.30); GFR ESTIMATED > 60
[2020-02-28 06:16] LABS: BUN/CREATININE RATIO 19
[2020-02-28 06:18] LABS: ALANINE AMINOTRANSFERASE 30 U/L (0-55)
[2020-02-28] MEDS: AMIODARONE 200 MG (CORDARONE) TAB PO SCH ×2 (09:17→20:47)
[2020-02-28] MEDS: SENNA W/DOCUSATE (SENOKOT S) TABLET PO SCH ×2 (09:17→20:47)
[2020-02-28] MEDS: APIXABAN 5 MG (ELIQUIS) TABLET PO SCH ×2 (09:17→20:47)
[2020-02-28] MEDS: meTOprolol TARTRATE 50 MG (LOPRESSOR) TAB PO SCH ×3 (09:17→20:47)
[2020-02-28] MEDS: DOCUSATE SODIUM 100 MG (COLACE) CAP PO SCH ×2 (09:17→20:47)
[2020-02-28] MEDS: polyethylene glycoL POWDER 17 GM (MIRALAX) PACK PO SCH ×2 (09:18→20:46)
--- NOTE | 2020-02-28 09:19 | Physical Therapy Evaluation ---
PT Evaluation-General Medical Diagnosis Admission Date Feb 27, 2020 at 16:30 Medical Diagnosis: respiratory failure Onset Date: Jan 25, 2020 Therapy Diagnosis Therapy Diagnosis: impaired mobility, strength, endurance Precautions Precautions/Isolations: Fall Prevention, Standard Precautions Referral Physician: Chelsey Goncalves DO Reason for Referral: Evaluation/Treatment Medical History Pertinent Medical History: HTN Reviewed History: Yes Social History Home: Apartment Current Living Status: Entry Into Home: Stairs With Railing Unsure about the accuracy of this info, he seems to have many steps to get to the apartment. Prior Prior Level of Function SCALE: Activities may be completed with or without assistive devices. 6-Dbiwmbvaea-kjpupgr completes the activity by him/herself with no assistance from a helper. 5-Set-up or Clean-up Assistance-helper sets up or cleans up; patient completes activity. [place] assists only prior to or following the activity. 4-Supervision or Touching Assistance-helper provides verbal cues and/or touching/steadying and/or contact guard assistance as patient completes activity. Assistance may be provided throughout the activity or intermittently. 3-Partial/Moderate Assistance-helper does LESS THAN HALF the effort. [place] lifts, holds or supports trunk or limbs, but provides less than half the effort. 2-Substantial/Maximal Assistance-helper does MORE THAN HALF the effort. [place] lifts or holds trunk or limbs and provides more than half the effort. 5-Drnhtfhko-kwvisc does ALL the effort. Patient does none of the effort to complete the activity. Or, the assistance of 2 or more helpers is required for the patient to complete the activity. If activity was not attempted, code reason: 7-Patient Refused. 9-Not Applicable-not attempted and the patient did not perform the activity before the current illness, exacerbation or injury. 10-Not Attempted due to Environmental Limitations-(lack of equipment, weather restraints, etc.). 88-Not Attempted due to Medical Conditions or Safety Concerns. Bed Mobility: 6 Transfers (B,C,W/C): 6 Gait: 6 Stairs: 6 Indoor Mobility (Ambulation): Independent Stairs: Independent PT Evaluation-Current Subjective Patient in bed pre tx, agrees to PT, has no complaints of pain. Will be co- treating with OT after evaluation due to poor patient endurance, decreased O2 with activity. Pt/Family Goals to be independent at home Objective Patient Orientation: Person, Unable to Assess ROM/Strength ROM Lower Extremities WNL Strength Lower Extremities LLE (hip flexion 3+/5, knee flexion 3+/5, knee extension 3+/5, dorsiflexion 3+/5), RLE (hip flexion 3+/5, knee flexion 3+/5, knee extension 3+/5, dorsiflexion 3+/5) Sensory Vision: Functional Hearing: Functional Sensation Right Lower Extremit: Intact Sensation Left Lower Extremity: Intact Sensation Lower Extremities Unsure about sensation but patient seems to understand directions. Transfers Roll Left to Right (QC): 6 Sit to Lying (QC): 6 Lying to Sitting/Side of Bed(Q: 6 Sit to Stand (QC): 4 Chair/Rjm-ky-Byydb Xfer(QC): 4 Toilet Transfer (QC): 4 Car Transfer (QC): 4 Patient performs bed mobility with independence, independent with supine <-> sit, CGA sit <-> stand, CGA for transfers, CGA for car transfer. Patient needs cues for hand placement when sitting and standing. Gait Does the Patient Walk?: Yes Mode of Locomotion: Walk Anticipated Mode of Locomotion: Walk Walk 10 feet (QC): 4 Walk 50 ft with 2 Turns(QC): 4 Walk 150 ft (QC): 88 Walking 10ft/uneven surface-QC: 4 Distance: 60'x2, 120' Gait Assistive Device: FWW Comments/Gait Description Patient can ambulate 120' with a rolling walker with CGA (including 50' with at least 2 turns of 90 degrees and 10' over an uneven surface). Patient gets SOB with activity, shaky with fatigue. Wheelchair Training Does the Pt Use a Wheelchair?: No Wheel 50 ft with 2 turns (QC): 9 Wheel 150 ft (QC): 9 Stairs #of Steps: 1 1 Step (curb) (QC): 4 4 Steps (QC): 88 12 Steps (QC): 88 Walking Assistive Device: Walker Patient can go up and down 1 step using a rolling walker with CGA, cues for foot placement. Balance Sitting Static: Normal Sitting Dynamic: Normal Standing Static: Good Standing Dynamic: Fair Picking up an Object (QC): 4 Treatment bathing, dressing, grooming, BLE seated exercises x20 (AP, LAQ, hip flexion, hip abd/add) Assessment/Needs Patient has impaired mobility, strength, endurance. He gets SOB with activity and O2 can get down to the low 80's, requires a couple of minutes to get O2 back into the 90's with purse lip breathing. Patient in recliner post tx with nurse call, phone, tray, all needs met. Rehab Potential: Fair PT Short Term Goals Short Term Goals Time Frame: Mar 06, 2020 Roll Left & Right: 6 Sit to lyin Lying to sitting on side of be: 6 Sit to stand: 6 Chair/hih-fz-liozj transfer: 5 Walk 10 feet: 4 Walk 50 feet with two turns: 4 Walk 150 feet: 4 PT Skilled Nursing Goals Bureau Chief Goals PT Skilled Nursing Goals Time Frame: Mar 20, 2020 Roll Left & Right (QC): 6 Sit to Lying (QC): 6 Lying-Sitting on Side/Bed(QC): 6 Sit to Stand (QC): 6 Chair/Cuv-ju-Ovbin Xfer(QC): 6 Toilet Transfer (QC): 6 Car Transfer (QC): 6 Does the Patient Walk: Yes Walk 10 feet (QC): 6 Walk 50ft with 2 Turns (QC): 6 Walk 150 ft (QC): 6 Walking 10ft on Uneven Surface: 6 1 Step (curb) (QC): 6 4 Steps (QC): 6 12 Steps (QC): 6 Picking up an Object (QC): 6 Wheel 50 feet with 2 turns (QC: 9 Wheel 150 feet: 9 PT Plan Problem List Problem List: Activity Tolerance, Functional Strength, Safety, Balance, Gait, Transfer, ROM Treatment/Plan Treatment Plan: Continue Plan of Care Treatment Plan: Bed Mobility, Concurrent Therapy, Functional Activity Berta, Functional Strength, Group Therapy, Gait, Safety, Therapeutic Exercise, Transfers Treatment Duration: Mar 20, 2020 Frequency: At least 5 of 7 days/Wk (IRF) Estimated Hrs Per Day: 1.5 hours per day Patient and/or Family Agrees t: Yes Safety Risks/Education Patient Education: Gait Training, Transfer Techniques, Steps, Correct Positioning, Safety Issues Teaching Recipient: Patient Teaching Methods: Demonstration, Discussion Response to Teaching: Reinforcement Needed Discharge Recommendations Plan Patient will perform bed mobility and transfer training, balance and endurance training, functional strengthening, stair training, gait training, and education, to improve functional mobility and independence at home. Therapy Discharge Recommendati: Home & Family Time/GCodes Time In: 0800 Time Out: 0915 Total Billed Treatment Time: 65 Total Billed Treatment 1 visit EVM 10' FA 55' (only charge 3 units) PT eval from [id number], OT eval from [id number], co-treat from [id number]. PT performed bed mobility and transfers, ambulation, stair training, assist with safety and positioning during bathing and dressing, LE exercise, OT performed UE exercise, bathing, dressing, grooming, assist with safety during transfers and general mobility. ALEXANDRIA NAQVI PT Feb 28, 2020 09:19
[2020-02-28] MEDS: MEXILETINE 200 MG (MEXITIL) CAPSULE PO SCH ×2 (10:11→20:47)
--- NOTE | 2020-02-28 10:21 | ST Cognitive Linguistic Eval ---
Speech Evaluation-General Medical Diagnosis respiratory failure, s/p COVID-19 + Onset Date: Jan 25, 2020 Therapy Diagnosis Therapy Diagnosis: Cognitive-communication Referral Referring Physician: Dr. Goncalves Medical History Pertinent Medical History: HTN Reviewed History: Yes Social History Current Living Status: Speech PLF-Current Status Prior Level of Function Patient lived with others and was independent for his daily needs. Subjective Patient was pleasant and cooperative with the cognitive assessment. Language Eval: Auditory Comprehends Simple Yes/No Ques: Functional Indent/Objects Multiple [place]: Functional Ident/Pics in Multiple [place]: Functional Follows 1-Step Commands: Functional Follows Complex Directions: Functional Follows General Conversations: Functional Language Eval: Verbal Language Completes Spontaneous Greeting: Functional Produces Auto, Serial Info: Functional Imitates Simple Words/Phrases: Functional Word Finding: Functional Requests Basic Needs: Functional States Basic Personal Info: Functional Expresses Complex Ideas: Functional Objective Cognitive Domain Attention: WNL Memory: WNL Problem Solving: Functional Executive Functions: WNL Visuospatial Skills: WNL Composite Severity Rating: WNL Clock Drawing Severity Rating: WNL Speech Patient Assess Expression of Ideas/Wants: Exhibits (3) Understanding Verbal Content: Usually Understands (3) Brief Interview-Mental Status: Yes Repetition of Three Words: Three (3) Temporal Orientation: Year: Correct (3) Temporal Orientation: Month: Accurate within 5 days(2) Temporal Orientation: Day: Correct (1) Recall : Wear to say "Sock": Yes,after cueing (1) Recall : Color: Yes, after cueing (1) Recall : Bed: Yes,after cueing (1) Memory/Recall Ability: Current season, That he or she is in a hsp/hsp unit Speech-Plan Patient/Family Goals Patient/Family Goals: Patient plans on returning to his home upon discharge. Treatment Plan Speech Therapy Treatment Plan: Discontinue ST Treatment Duration: Feb 28, 2020 Frequency: 1 time per week Estimated Hrs Per Day: .25 hour per day Rehab Potential: Fair Barriers to Learning: Patient speaks very little Welsh Pt/Family Agrees to Plan: Yes Safety Risks/Education Teaching Recipient: Patient Teaching Methods: Discussion Response to Teaching: Verbalize Understanding, Reinforcement Needed Education Topics Provided: Safety within his room and communication of wants/needs Time Speech Therapy Time In: 09:30 Speech Therapy Time Out: 09:45 Total Billed Time: 15 Billed Treatment Time 1, SPSNDCOMP No MARCIANOJEOVANNY ST Feb 28, 2020 10:21
--- NOTE | 2020-02-28 10:45 | NUR ---
Pt is Yarsanism and was anointed in ICU. Metallographic Technician visited to day with some conversation in Jordanian. Unsure if pt is aware his brother . Waiting for cues from family or pt.
--- NOTE | 2020-02-28 10:55 | Occupational Therapy Eval ---
OT Evaluation-General/PLF Medical Diagnosis Admission Date Feb 27, 2020 at 16:30 Medical Diagnosis: respiratory failure, s/p COVID-19 + Onset Date: Jan 25, 2020 Therapy Diagnosis Therapy Diagnosis: Decreased ADL status Precautions Precautions/Isolations: Fall Prevention, Standard Precautions Referral Physician: Chelsey Goncalves DO Referral Reason: Activity Tolerance, Self Care, Evaluation/Treatment, Strengthening/ROM Medical History Pertinent Medical History: HTN Additional Medical History unknown, see nursing. Reviewed History: Yes Social History Home: Apartment Current Living Status: brother Entry Into Home: Stairs With Railing (2nd level apartment without elevator) ADL-Prior Level of Function SCALE: Activities may be completed with or without assistive devices. 3-Hhjvlkxitc-eeulokp completes the activity by him/herself with no assistance from a helper. 5-Set-up or Clean-up Assistance-helper sets up or cleans up; patient completes activity. [place] assists only prior to or following the activity. 4-Supervision or Touching Assistance-helper provides verbal cues and/or touching/steadying and/or contact guard assistance as patient completes activity. Assistance may be provided throughout the activity or intermittently. 3-Partial/Moderate Assistance-helper does LESS THAN HALF the effort. [place] lifts, holds or supports trunk or limbs, but provides less than half the effort. 2-Substantial/Maximal Assistance-helper does MORE THAN HALF the effort. [place] lifts or holds trunk or limbs and provides more than half the effort. 2-Zfmwadfkc-omdwsw does ALL the effort. Patient does none of the effort to complete the activity. Or, the assistance of 2 or more helpers is required for the patient to complete the activity. If activity was not attempted, code reason: 7-Patient Refused. 9-Not Applicable-not attempted and the patient did not perform the activity before the current illness, exacerbation or injury. 10-Not Attempted due to Environmental Limitations-(lack of equipment, weather restraints, etc.). 88-Not Attempted due to Medical Conditions or Safety Concerns. ADL PLOF Comments Based on pt job title and housing environment, pt was IND without use of AD. Self Care: Independent Functional Cognition: Independent DME/Equipment: Tub/Shower DME/Equipment Comments tub/ shower, apartment. Occupation: [employer]. OT Current Status Subjective PT eval from [id number], OT eval from [id number], co-treat from . Co- treat rendered due to pt's decreased 02 sats and limited functional strength/ endurance as PT performed bed mobility and transfers, ambulation, stair training, assist with safety and positioning during bathing and dressing, LE exercise, OT performed UE exercise, bathing, dressing, grooming, assist with s afety during transfers and general mobility. Pt seen in bed this am. Pt denies pain, states feeling, "okay." Pt and OT interaction limited by language barrier, though OT/ pt able to utilize minimal verbals and increased gestures/ facial expressions for more thorough communication. OT individual tx: [id number]: Pt seen in bed post-PT session. Pt expresses fatigue. Pt encouraged to complete OT tx, pt agreeable. Pt denies pain, 02 monitored throughout. Mental Status/Objective Patient Orientation: Person, Place, Situation, Normal For Age Current Glasses/Contacts: No Hearing Aids: No Dentures/Partials: No Hand Dominance: Right Upper Extremity ROM WFL BUE Upper Extremity Coordination WFL BUE, though increased shakiness with activity Upper Extremity Sensation WFL BUE Upper Extremity Strength WFL BUE (4/5 bilaterally) Edema: none noted. ADL-Treatment Eating (QC): 6 Oral Hygiene (QC): 4 (Pt completes in stance, completes with SBA and cues to sit once completed for rest break. Pt completes with fast pace and decreased coordination due to fast pace/ shakiness. ) Shower/Bathe Self (QC): 4 (SBA during all tasks. Pt able to reach all areas, pt's 02 in low 80's post-shower.) Upper Body Dressing (QC): 5 (s/u) Lower Body Dressing (QC): 4 (SBA and cues for deep breaths in bending position. Pt able to complete all tasks.) On/Off Footwear (QC): 4 (IND, though SBA for cues for breath/ recovery prior to second sock) Toileting Hygiene (QC): 4 (SBA) Other Treatments PT eval from 3562-7626, OT eval from 9735-8560, co-treat from 4513-7913. Co- treat rendered due to pt's decreased 02 sats and limited functional strength/ endurance. PT performed bed mobility and transfers, ambulation, stair training, assist with safety and positioning during bathing and dressing, LE exercise, OT performed UE exercise, bathing, dressing, grooming, assist with safety during transfers and general mobility. [id number]: Pt alert/ oriented. Pt agrees to OT/ Pt co-treat. Pt educated on OT role/ activities planned for tx session. OT offers clothing for pt and washing of pt's jeans- pt agrees, taking out wallet and showing OT/ PT money (guerrero) and paychecks from workplace. Wallet placed in drawer with pt's permission. Pt completes MMT/ ROM screen with demonstration EOB, good sitting balance. pt bed mob SBA, CGA ambulation task to car transfer machine. Pt completes with 02 in low 80s, requires ~2 min for recovery, skilled cues for breath support. Pt ambulates with continued 02 sats in 80% range, requires breaks for breath. Pt demonstrates shallow/ short breaths when attempting to recover, pt educated on deep breaths; pt begins talking with therapy and increases typical breathing pattern. Pt ambulates to shower, completes as above with 02 sats monitored. Pt returns to recliner post-shower/ dressing/ oral hygiene, completes UE theraband ex with demonstration/ cues from HEP. Pt left in recliner with all needs met, call light in reach, nursing present. 7723-0997: OT individual eval. Pt completes 10 reps bilaterally of UE theraband ex from HEP. Pt states he is able to see HEP, though words on L side of page is too small, stating, "No, no," while pointing to L side of page. Pt states he is able to read rest if in [place]. Use of [employer] translate for specific words/ phrases for increased communication. Pt completes bed mob with SBA, ambulates with walker (denying need for restroom) toward gym. Pt's sats taken within ~90 feet: 02 at 90%. Pt demonstrates no SOB at this time. Pt walks to gym, completes 2 min arm bike ex with minimal resistance, 02 at 84% and recovers within 1 min rest break. Pt states, "Today... Too much." Pt educated on better sats this afternoon and relax until ready to complete additional set of UE ex, though OT will discuss different options for tx times. Pt completes an additional 2 min arm bike and 02 at low 80's. Recovers and returns to room. Pt's sats low 80s once back to bed, recovers in ~3 min. Pt again states, "Today too much," pt encouraged to relax, pt requests cookies. Pt given goody bag, able to doff tie from bag with maximum trials. Pt left in bed with all needs met, call light in reach. Education OT Patient Education: Correct positioning, Exercise program, Home exercise program, Modified ADL techniques, Purpose of tx/functional activities, Rehab process, Safety issues Teaching Recipient: Patient Teaching Methods: Demonstration, Discussion Response to Teaching: Verbalize Understanding, Return Demonstration OT Short Term Goals Short Term Goals Time Frame: Mar 06, 2020 Oral hygiene: 6 Toileting hygiene: 5 Upper body dressin Lower body dressin Putting on/taking off footwear: 5 OT Penitentiary Goals Penitentiary Goals Time Frame: Mar 13, 2020 Eating (QC): 6 Oral Hygiene (QC): 6 Toileting Hygiene (QC): 6 Shower/Bathe Self (QC): 6 Upper Body Dressing (QC): 6 Lower Body Dressing (QC): 6 On/Off Footwear (QC): 6 Additional Goals: 1-Demonstrate ADL Tasks, 2-Verbalize Understanding, 3- ImproveStrength/Berta 1=Demonstrate adherence to instructed precautions during ADL tasks. 2=Patient will verbalize/demonstrate understanding of assistive devices/modifications for ADL. 3=Patient will improve strength/tolerance for activity to enable patient to perform ADL's. OT Education/Plan Problem List/Assessment Assessment: Decreased Activ Tolerance, Decreased UE Strength, Dependent Transfers, Impaired Coordination (with activity), Impaired Funct Balance, Impaired I ADL's, Impaired Self-Care Skills Discharge Recommendations Plan/Recommendations: Continue POC Therapy Discharge Recommendati: Home & Family, Post Acute OT Equpiment Recommendations-D/C: Extended Bath Bench, Rails on Tub/Shower, Extended Shower Sprayer, Walker Bag or Basket Treatment Plan/Plan of Care Treatment,Training & Education: Yes Patient would benefit from OT for education, treatment and training to promote independence in ADL's, mobility, safety and/or upper extremity function for ADL's. Plan of Care: ADL Retraining, Caregiver Training, Concurrent Therapy, Functional Mobility, Group Exercise/Act as Ind, UE Funct Exercise/Act Treatment Duration: Mar 13, 2020 Frequency: At least 5 of 7 days/Wk (IRF) Estimated Hrs Per Day: Other (13/02 ) Agreement: Yes Rehab Potential: Fair Time/GCodes Start Time: 08:10 (1330) Stop Time: 09:15 (1400) Total Time Billed (hr/min): 95 Billed Treatment Time PT eval from 5487-3153 OT eval from [id number] Co-treat from 4645-3206. Co-treat rendered due to pt's decreased 02 sats and limited functional strength/ endurance. PT performed bed mobility and transfers, ambulation, stair training, assist with safety and positioning during bathing and dressing, LE exercise, OT performed UE exercise, bathing, dressing, grooming, assist with safety during transfers and general mobility. 1, EVM (10), FA (20), ADL 2 (35)= 65 [id number]: 1, EX 2 (30) Total time: 95 min SEEMA HINSON OTR Feb 28, 2020 10:55
--- NOTE | 2020-02-28 11:11 | NUR ---
"RD ASSESSMENT PMHx: COVID-19; afib PT INTERACTION: Pt was awake and pleasant during nutrition assessment. Note pt does not speak French, but was able to answer most of my questions. Pt states current appetite is good. Note avg PO intake 100% x1meal, per chart review. Pt states no issues with chewing/swallowing food. Pt states no recent issues with nausea, vomiting, constipation, or diarrhea. Note last BM was 02/26 and pt currently on bowel regimen of colace BID; senna BID; and miralax BID, per chart review. Pt states no recent wt changes. Note recent 33# wt loss x1mon dut to poor intake due hospital course involving states of NPO and TF. Upon visual assessment, pt appears to be adequately nourished with no visible signs of muscle/fat wasting and a BMI of 28.9. ABNORMAL NUTRITION-RELATED LAB VALUES LOW: Ca 8.3; Pro 5.5; alb 3.0 HIGH: Cl 110 Est. kcal needs: 1675 kcal | 20 kcal/kg Est. Pro needs: 100 g Pro | 1.2 g Pro/kg PES STATEMENT: Given current PO intake, no nutrition diagnosis at this time (NO-1.1) INTERVENTION: Continue with current diet order of Regular diet. Add Ensure HP (vary) to meals TID, for increased protein intake. Provides 160 kcal and 16 g Pro per serving. Will continue to follow and reassess as pt needs, intake, and status change. MONITOR/EVALUATE: PO Intake; Plan of Care; Hydration Status; Weight Status; Lab Values Emerson Dunaway, MS, RD, LD"
--- NOTE | 2020-02-28 13:38 | Physical Therapy Daily Note ---
PT Daily Note-Current Subjective Pt. and nurse in room. Nurse assists with introducing this MARKER MAKER. Pt. agreeable to Rx. Smart phone interpreting cathy used for some of communication however pt. seem puzzled by some questions. This MARKER MAKER offering reading glasses for trial but pt. declined indicating he did not have a vision issue before the illness but maybe he does now Pain Location: No Pain Reported Appearance pt. was diaphoretic to touch during exercise and was dyspneic but recovered well with rest Mental Status Patient Orientation: Normal For Age language barrier, phone cathy used but minimally effective Transfers SCALE: Activities may be completed with or without assistive devices. 1-Kjzozayxqt-orwpjiy completes the activity by him/herself with no assistance from a helper. 5-Set-up or Clean-up Assistance-helper sets up or cleans up; patient completes activity. [place] assists only prior to or following the activity. 4-Supervision or Touching Assistance-helper provides verbal cues and/or touching/steadying and/or contact guard assistance as patient completes activity. Assistance may be provided throughout the activity or intermittently. 3-Partial/Moderate Assistance-helper does LESS THAN HALF the effort. [place] lifts, holds or supports trunk or limbs, but provides less than half the effort. 2-Substantial/Maximal Assistance-helper does MORE THAN HALF the effort. [place] lifts or holds trunk or limbs and provides more than half the effort. 3-Mmpiahhvx-dhzfyq does ALL the effort. Patient does none of the effort to complete the activity. Or, the assistance of 2 or more helpers is required for the patient to complete the activity. If activity was not attempted, code reason: 7-Patient Refused. 9-Not Applicable-not attempted and the patient did not perform the activity before the current illness, exacerbation or injury. 10-Not Attempted due to Environmental Limitations-(lack of equipment, weather restraints, etc.). 88-Not Attempted due to Medical Conditions or Safety Concerns. in out bed and chair all SBA Gait Training Gait Assistive Device: FWW 125 ft x 1, 75ftx2 CGA , slow, quickly fatigued, O2 sats on room air 95% and 98% Exercises Seated Therapy Exercises: Ankle pumps, Sit to stand, Long arc quads, Hip flexion, Hip abd/add Seated Reps: 12 Assessment Current Status: Good Progress fatigues but recovers well, O2 sats WNLs on room air PT Short Term Goals Short Term Goals Time Frame: Mar 06, 2020 Roll Left & Right: 6 Sit to lyin Lying to sitting on side of be: 6 Sit to stand: 6 Chair/bik-uc-nzhnr transfer: 5 Walk 10 feet: 4 Walk 50 feet with two turns: 4 Walk 150 feet: 4 PT Fpc Goals Layout Operator Goals PT Fpc Goals Time Frame: Mar 20, 2020 Roll Left & Right (QC): 6 Sit to Lying (QC): 6 Lying-Sitting on Side/Bed(QC): 6 Sit to Stand (QC): 6 Chair/Cgp-wq-Goqen Xfer(QC): 6 Toilet Transfer (QC): 6 Car Transfer (QC): 6 Does the Patient Walk: Yes Walk 10 feet (QC): 6 Walk 50ft with 2 Turns (QC): 6 Walk 150 ft (QC): 6 Walking 10ft on Uneven Surface: 6 1 Step (curb) (QC): 6 4 Steps (QC): 6 12 Steps (QC): 6 Picking up an Object (QC): 6 Wheel 50 feet with 2 turns (QC: 9 Wheel 150 feet: 9 PT Plan Treatment/Plan Treatment Plan: Continue Plan of Care Treatment Plan: Bed Mobility, Concurrent Therapy, Functional Activity Berta, Functional Strength, Group Therapy, Gait, Safety, Therapeutic Exercise, Transfers Treatment Duration: Mar 20, 2020 Frequency: At least 5 of 7 days/Wk (IRF) Estimated Hrs Per Day: 1.5 hours per day Patient and/or Family Agrees t: Yes Safety Risks/Education Patient Education: Gait Training, Correct Positioning, Safety Issues Response to Teaching: Reinforcement Needed gestured to teach use of arm rests for sit to stand Time/GCodes Time In: 1305 Time Out: 1330 Total Billed Treatment Time: 25 Total Billed Treatment 1,GT12m,EX13m TRENA JOHNSON MARKER MAKER Feb 28, 2020 13:38
--- NOTE | 2020-02-28 14:42 | Progress Note ---
NAPOLEON STAUFFER STUDENT 02/28/20 1442: Progress Note Santhosh Lima is a 54 year old male who arrived at [facility] ER 01/24 with SOB, he is an employee of [employer] who was known to be COVID positive from testing the Wednesday before arrival, respiratory failure continued in ER necessitating intubation, soon became hypotensive and bradycardic requiring epi and atropine as well as chest compressions, was brought to ICU. Hypotension stabilized with levophed, IV fluids. Diagnosed with COVID+ ARDS, completed course of remdesivir, decadron. He was sedated and intubated on vent until 02/12 due to difficulties with weaning, he would be agitated and tachypneic with attempted weaning. On 02/04 he had worsening leukocytosis and fever of 101, diagnosed with enterobacter PNA, treated with course of Merrem completed 02/19. 02/12 he had an episode of paroxysmal atrial fibrillation and frequent PVCs, cardiology consulted, treated with amiodarone and mexiletine. He was confused for several days following end of sedation and intubation. Transferred to the Med/Surg 02/19, noted to be very weak, participated in PT. Confusion had resolved by this time. Transferred to IRF 02/27, delayed several days only due to wait for insurance authorization, had been improving well with PT. CHELSEY MUÑOZ DO 02/28/202046: Supervisory-Addendum Brief Verification & Attestation Participated in pt care: history, MDM, physical Personally performed: exam, history, MDM, supervision of care Care discussed with: Medical Student Procedures: n/a Results interpretation: Verified all documentation Verification and Attestation of Medical Student E/M Service A medical student performed and documented this service in my presence. I reviewed and verified all information documented by the medical student and made modifications to such information, when appropriate. I personally performed the physical exam and medical decision making. Cehlsey Muñoz, Feb 28, 2020,20:47 NAPOLEON STAUFFER MED STUDENT Feb 28, 2020 14:42 CHELSEY MUÑOZ DO Feb 28, 2020 20:47
[2020-02-28 18:11] VITALS: BP 123/73
--- NOTE | 2020-02-28 20:50 | Individualized Plan of Care ---
Individualized Plan of Care Rehab Nursing IPOC Order Admission Date Feb 27, 2020 at 16:30 Current Orders Orders Admission Order(Inpt,Obs,Sdc) (02/27/20 16:01) Vital Signs: Per Unit Policy ( 08,16,00 (02/27/20 16:01) Feroz Peter 09,21 (02/27/20 16:01) Sequential Compression Device Q4H (02/27/20 16:01) Picker / Packer-Inpt Rehab Con (02/27/20 16:01) Rehab Nursing Orders-Ipoc (02/27/20 16:01) Physical Therapy Rehab Orders (02/27/20 16:01) Occupational Therapy Rehab Ord (02/27/20 16:01) Speech Therapy Rehab Orders (02/27/20 16:01) Cbc With Automated Diff (02/28/20 06:00) Comprehensive Metabolic Panel (02/28/20 06:00) General/Regular (02/27/20 Dinner) Intake & Output 06,14,22 (02/27/20 16:01) Precautions (Aru) (02/27/20 16:01) Rehab-Intensity Of Therapy (02/27/20 16:01) Initiate Admission Nursing Pro .admission (02/27/20 16:01) Acetaminophen Tablet (Tylenol Tablet) (02/27/20 16:15) Alprazolam Tablet (Xanax Tablet) (02/27/20 16:15) Calcium Carbonate Chew Tablet (Antacid C (02/27/20 16:15) Diphenhydramine Tablet (Benadryl Tablet) (02/27/20 16:15) Docusate Sodium Capsule (Colace Capsule) (02/27/20 21:00) Docusate Sodium Capsule (Colace Capsule) (02/27/20 16:15) Bisacodyl Suppository (Dulcolax Supposit (02/27/20 16:15) Lactulose Oral Solution (Enulose Oral So (02/27/20 16:15) Na Phos/Na Biphos Enema (Fleet Enema Timmy (02/27/20 16:15) Guaifenesin/Codeine Syrup (Robitussin Ac (02/27/20 16:15) Loperamide Tablet (Imodium Tablet) (02/27/20 16:15) Enoxaparin Injection (Lovenox Injection) (02/27/20 16:15) Melatonin Tablet (Melatonin Tablet) (02/27/20 16:15) Polyethylene Glycol Powder Pkt (Miralax (02/27/20 21:00) Ondansetron Oral Dissolve Tab (Zofran (02/27/20 16:15) Senna S Tablet (Senokot S Tablet) (02/27/20 21:00) Code/Resuscitation (02/27/20 16:01) Initiate Admission Nursing Pro .admission (02/27/20 16:01) Admission Arrival Bed Request (02/27/20 16:30) Ambulate 08,12,20 (02/27/20 16:54) Sequential Compression Device Q4H (02/27/20 16:54) Dvt/Vte Risk - Notifiy Physici Q4H (02/27/20 16:54) Code/Resuscitation (02/27/20 17:32) Initiate Admission Nursing Pro .admission (02/27/20 17:32) Acetaminophen Tablet/Caplet (Tylenol T (02/27/20 17:45) Albuterol/Ipra Inhalation Soln (Duoneb I (02/27/20 17:45) Albuterol/Ipratropium Inhaler (Combivent (02/27/20 21:00) Amiodarone Tablet (Cordarone Tablet) (02/27/20 21:00) Apixaban Tablet (Eliquis Tablet) (02/27/20 21:00) Bisacodyl Suppository (Dulcolax Supposit (02/27/20 17:45) Mexiletine Capsule (Mexiletine Capsule) (02/27/20 21:00) Sodium Chloride Flush (Catheter Flush Sy (02/27/20 17:45) Metoprolol Tartrate (Ir) Tab (Lopressor (02/27/20 21:00) Polyethylene Glycol Powder Pkt (Miralax (02/27/20 17:45) Consult Cardiology (02/27/20 17:32) Consult Pulmonology (02/27/20 17:32) Svn Small Volume Nebulizer (02/27/20 17:32) Hydrocodone/Apap 5/325 Tablet (Lortab 5 (02/27/20 17:45) Sodium Chloride Flush (Catheter Flush Sy (02/27/20 22:00) Incentive Spirometry (Nursing) Q2H (02/28/20 09:59) Patient Visit (02/28/20 ) Functional Activities, Ea 15 (02/28/20 ) Patient Visit (02/28/20 ) Gait Training, Ea 15 Min (02/28/20 ) Exercise Therap, Ea 15 Min (02/28/20 ) Pt Eval Moderate Complexity (02/28/20 ) Patient Visit (02/28/20 ) Speech Sound Lang Comp (02/28/20 ) Patient Visit (02/29/20 ) Functional Activities, Ea 15 (02/29/20 ) Exercise Therap, Ea 15 Min (02/29/20 ) Patient Visit (02/29/20 ) Gait Training, Ea 15 Min (02/29/20 ) Exercise Therap, Ea 15 Min (02/29/20 ) Rehab Nursing Orders: Ongoing Assess. of Function Status, Bladder Management, Bladder Scan, Bladder Training, Bowel Management, Disease Management & Educaiton, DVT Prophylaxis, Fall Prevention, Fluid/Electrolyte/Nutrition Mgmt, Infection Prevention, Medication Management & Education, Management of Risks & Complications, Nutrition Management, Pain Management, Patient/Family Support, Safety Management Intensity of Therapy to be met Patient to be seen: Min.3h per day/5 of 7d PT IPOC Problem List: Activity Tolerance, Functional Strength, Safety, Balance, Gait, Transfer, ROM Treatment Plan: Continue Plan of Care Bed Mobility, Concurrent Therapy, Functional Activity Berta, Functional Strength, Group Therapy, Gait, Safety, Therapeutic Exercise, Transfers Treatment Duration: Mar 20, 2020 Frequency: At least 5 of 7 days/Wk (IRF) Estimated Hrs Per Day: 1.5 hours per day OT IPOC Problems: Decreased Activ Tolerance, Decreased UE Strength, Dependent Transfers, Impaired Coordination (with activity), Impaired Funct Balance, Impaired I ADL's, Impaired Self-Care Skills OT Treatment, Training and Edu: Yes Plan of Care: ADL Retraining, Caregiver Training, Concurrent Therapy, Func tional Mobility, Group Exercise/Act as Ind, UE Funct Exercise/Act Treatment Duration: Mar 13, 2020 Frequency: At least 5 of 7 days/Wk (IRF) Estimated Hrs Per Day: Other (13/02 ) ST IPOC Speech Therapy Treatment Plan: Discontinue ST Treatment Duration: Feb 28, 2020 Frequency: 1 time per week Estimated Hrs Per Day: .25 hour per day Picker / Packer/Case Mgmt Picker / Packer/Case Managemen: Discharge Planning Dietitian/Senior Financial Reporting Accountant Dietitian/Senior Financial Reporting Accountant to monitor nutritional status and make changes and/or recommendations as needed and work with speech pathology on dietary upgrades as the occur. Physician IPOC Medical Issues being managed closely and that require the 24 hour availability of a physician: Recent COVID-19 infection with VDRF for 2 weeks with AF w/RVR dx in need of close monitoring for decompensation Medical Issues: Bowel/Bladder Function, DVT Prophylaxis, Falls Precautions, Fluid/Electrolyte/Nutrition Balance, Infection Protection, Pain Management Brief Synthesis of Preadmission Screen, Post-Admission Evaluation, and Therapy Evaluations: PT OT will focus on regaining strength and increase pulmonary stamina and recover independence Medical Prognosis: Good Anticipated Length of Stay: 7 days ALISA MUÑOZ DO Feb 28, 2020 20:50
[2020-02-29] MEDS: ALBUTEROL/IPRATROP (COMBIVENT RESPIMAT) 4 GM INHALER IH SCH ×4 (03:30→21:16)
[2020-02-29 05:05] VITALS: BP 119/76
[2020-02-29] MEDS: CATHETER FLUSH 10 ML SYR IV SCH ×3 (05:07→20:38)
--- NOTE | 2020-02-29 08:59 | Occupational Ther Daily Note ---
OT Current Status-Daily Note Subjective [id number]: Pt seen in bed. Pt alert/ awake, agrees to OT. Pt denies showering on this date, agreeable to gym activities. [id number]: Pt's nurse is addressed prior to activity, nursing agrees for pt outdoor activities. Pt seen in bed, pt rolls eyes/ sighs and looks at clock. Pt states, "What time is it?" Pt educated on OT 10 min early and can come back at 1300. Pt denies, states, "It's okay." Pt denies pain, pt is questioned on energy level. Pt states he is "okay." Mental Status/Objective Patient Orientation: Normal For Age ADL-Treatment Therapy Code Descriptions/Definitions Functional [place] Measure: 0=Not Assessed/NA 4=Minimal Assistance 1=Total Assistance 5=Supervision or Setup 2=Maximal Assistance 6=Modified [place] 3=Moderate Assistance 7=Complete IndependenceSCALE: Activities may be completed with or without assistive devices. 6-Roonuyrmvu-rkfunis completes the activity by him/herself with no assistance from a helper. 5-Set-up or Clean-up Assistance-helper sets up or cleans up; patient completes activity. [place] assists only prior to or following the activity. 4-Supervision or Touching Assistance-helper provides verbal cues and/or touching/steadying and/or contact guard assistance as patient completes activity. Assistance may be provided throughout the activity or intermittently. 3-Partial/Moderate Assistance-helper does LESS THAN HALF the effort. [place] lifts, holds or supports trunk or limbs, but provides less than half the effort. 2-Substantial/Maximal Assistance-helper does MORE THAN HALF the effort. [place] lifts or holds trunk or limbs and provides more than half the effort. 3-Ekdrvylin-jkhjec does ALL the effort. Patient does none of the effort to complete the activity. Or, the assistance of 2 or more helpers is required for the patient to complete the activity. If activity was not attempted, code reason: 7-Patient Refused. 9-Not Applicable-not attempted and the patient did not perform the activity before the current illness, exacerbation or injury. 10-Not Attempted due to Environmental Limitations-(lack of equipment, weather restraints, etc.). 88-Not Attempted due to Medical Conditions or Safety Concerns. Eating (QC): 6 Oral Hygiene (QC): 6 (Pt states already completed this morning.) Shower/Bathe Self (QC): 7 Other Treatment Pt bed mob with SBA. Sit to stand from EOB, pushing onto bed properly into stance at walker without cues. pt ambulates to gym, 02 low 80s once in gym. Pt recovers within 1 min to 90, unable to increase 02 sats with increased breath past 90%. Pt completes 3 minutes minimal resistance arm bike activity to facilitate functional activity tolerance: 02 94% post-3 min; again for 2 min: 92% post-2 min. Pt ambulates to stance at tabletop with SBA, pt completes min motor/ pinch strength activity in stance to increase functional standing tolerance, balance, and UE activity. Pt completes ~2 min of stance and requests break. Pt completes this 3x with an increase of pace/ decrease of fine motor coordination with fatigue. Pt sits EOM for UE exercises: completes 3 sets of 3 exercises with 5# bar and rest breaks in between. Pt is explained purpose of tx session and use of activity to increase tolerance/ strength for fx activities at home. Pt nods. Pt returns to room, walking with 2WW from gym to room with SBA and no rest break, 88% 02 end of ambulation. Pt in bed, all needs met, call light in reach. Pt completes bed mob SBA. Sit to stand with SBA, ambulates with walker to elevator. Pt is followed by w/c, encouraged to have seat. Pt sits and able to propel self in to elevator with BLE. Pt pushed to outside door past cafeteria. Pt completes ambulation task across differring terrains, including concrete/ unlevel surface. Pt denies pain/ fatigue. Pt and OT discuss home and plans for d/c. During this time spiritual support adds in discussion, able to translate with increased accuracy. Pt states he would like to shave. Pt educated that family (1 at a time, 1per day) can bring clippers for bellamy. Pt nods. Pt returns to ARU, ambulating from elevator to room, upon rest, pt's 02 at 82% with ~30 sec for 90% 02 reached. Pt left in bed with all needs met, call light in reach. Education OT Patient Education: Correct positioning, Exercise program, Progress toward Goal/Update tx plan, Purpose of tx/functional activities, Rehab process, Safety issues Teaching Recipient: Patient Teaching Methods: Demonstration, Discussion Response to Teaching: Verbalize Understanding, Return Demonstration OT Short Term Goals Short Term Goals Time Frame: Mar 06, 2020 Oral hygiene: 6 Toileting hygiene: 5 Upper body dressin Lower body dressin Putting on/taking off footwear: 5 OT Outdoor Recreation Specialist Goals Outdoor Recreation Specialist Goals Time Frame: Mar 13, 2020 Eating (QC): 6 Oral Hygiene (QC): 6 Toileting Hygiene (QC): 6 Shower/Bathe Self (QC): 6 Upper Body Dressing (QC): 6 Lower Body Dressing (QC): 6 On/Off Footwear (QC): 6 Additional Goals: 1-Demonstrate ADL Tasks, 2-Verbalize Understanding, 3- ImproveStrength/Berta 1=Demonstrate adherence to instructed precautions during ADL tasks. 2=Patient will verbalize/demonstrate understanding of assistive devices/modifications for ADL. 3=Patient will improve strength/tolerance for activity to enable patient to perform ADL's. OT Education/Plan Problem List/Assessment Assessment: Decreased Activ Tolerance, Decreased UE Strength, Dependent Transfers, Impaired Coordination, Impaired I ADL's, Impaired Self-Care Skills Discharge Recommendations Plan/Recommendations: Continue POC Therapy Discharge Recommendati: Home & Family, Post Acute OT Treatment Plan/Plan of Care Treatment,Training & Education: Yes Patient would benefit from OT for education, treatment and training to promote independence in ADL's, mobility, safety and/or upper extremity function for ADL's. Plan of Care: ADL Retraining, Caregiver Training, Concurrent Therapy, Functional Mobility, Group Exercise/Act as Ind, UE Funct Exercise/Act Treatment Duration: Mar 13, 2020 Frequency: At least 5 of 7 days/Wk (IRF) Estimated Hrs Per Day: Other (13/02 ) Agreement: Yes Rehab Potential: Fair Time/GCodes Start Time: 08:00 (1250) Stop Time: 09:00 (1320) Total Time Billed (hr/min): 90 (60 + 30) Billed Treatment Time [id number]: 1, EX 4= 60 [id number]: 1, FA, EX= 30 SEEMA HINSON OTR Feb 29, 2020 08:59
[2020-02-29] MEDS: APIXABAN 5 MG (ELIQUIS) TABLET PO SCH ×2 (09:00→20:38)
[2020-02-29] MEDS: MEXILETINE 200 MG (MEXITIL) CAPSULE PO SCH ×2 (09:00→20:37)
[2020-02-29] MEDS: meTOprolol TARTRATE 50 MG (LOPRESSOR) TAB PO SCH ×3 (09:00→20:38)
[2020-02-29] MEDS: AMIODARONE 200 MG (CORDARONE) TAB PO SCH ×2 (09:00→20:37)
[2020-02-29] MEDS: DOCUSATE SODIUM 100 MG (COLACE) CAP PO SCH ×2 (09:00→20:37)
[2020-02-29] MEDS: polyethylene glycoL POWDER 17 GM (MIRALAX) PACK PO SCH ×2 (09:24→19:27)
[2020-02-29] MEDS: SENNA W/DOCUSATE (SENOKOT S) TABLET PO SCH ×2 (09:24→19:27)
--- NOTE | 2020-02-29 09:36 | PM&R Progress Note ---
Subjective HPI/CC On Admission Date Seen by Provider: Feb 29, 2020 Time Seen by Provider: 10:30 Subjective/Events-last exam Pt up Ad-latosha 2 liters of O2 required last night Room air right now Still dyspneic on exertion but improved Overall feel much better Conferred with RN Reviewed therapy noted Checked meds and labs Review of Systems General: Fatigue, Malaise Neurological: Weakness Objective Exam Vital Signs Vital Signs Date Time Temp Pulse Resp B/P (MAP) Pulse Ox O2 Delivery O2 Flow Rate FiO2 02/29/20 20:43 Room Air 02/29/20 18:00 36.7 75 20 131/71 (91) 92 02/29/20 05:05 2.00 Capillary Refill : Less Than 3 Seconds General Appearance: No Apparent Distress, WD/WN HEENT: PERRL/EOMI, Normal ENT Inspection, Pharynx Normal Neck: Full Range of Motion, Normal Inspection, Non Tender, Supple, Carotid Bruit Respiratory: Chest Non Tender, Lungs Clear, Normal Breath Sounds, No Accessory Muscle Use, No Respiratory Distress, Decreased Breath Sounds Cardiovascular: Regular Rate, Rhythm, No Edema, No Gallop, No JVD, No Murmur, Normal Peripheral Pulses Gastrointestinal: Normal Bowel Sounds, No Organomegaly, No Pulsatile Mass, Non Tender, Soft Back: Normal Inspection, No CVA Tenderness, No Vertebral Tenderness Extremity: Normal Capillary Refill, Normal Inspection, Normal Range of Motion, Non Tender, No Calf Tenderness, No Pedal Edema Neurologic/Psychiatric: Alert, Oriented x3, No Motor/Sensory Deficits, Normal Mood/Affect, surgical coordinator II-XII Norm as Tested, Abnormal Gait, Motor Weakness ( generalized all extremities 4/5) Skin: Normal Color, Warm/Dry Lymphatic: No Adenopathy Results/Procedures Lab Patient resulted labs reviewed. FIM Transfers Therapy Code Descriptions/Definitions Functional [place] Measure: 0=Not Assessed/NA 4=Minimal Assistance 1=Total Assistance 5=Supervision or Setup 2=Maximal Assistance 6=Modified [place] 3=Moderate Assistance 7=Complete IndependenceSCALE: Activities may be completed with or without assistive devices. 2-Xtblsafqxw-aajpynz completes the activity by him/herself with no assistance from a helper. 5-Set-up or Clean-up Assistance-helper sets up or cleans up; patient completes activity. [place] assists only prior to or following the activity. 4-Supervision or Touching Assistance-helper provides verbal cues and/or touching/steadying and/or contact guard assistance as patient completes activity. Assistance may be provided throughout the activity or intermittently. 3-Partial/Moderate Assistance-helper does LESS THAN HALF the effort. [place] lifts, holds or supports trunk or limbs, but provides less than half the effort. 2-Substantial/Maximal Assistance-helper does MORE THAN HALF the effort. [place] lifts or holds trunk or limbs and provides more than half the effort. 8-Ffefypiyx-dhpqrf does ALL the effort. Patient does none of the effort to complete the activity. Or, the assistance of 2 or more helpers is required for the patient to complete the activity. If activity was not attempted, code reason: 7-Patient Refused. 9-Not Applicable-not attempted and the patient did not perform the activity bef ore the current illness, exacerbation or injury. 10-Not Attempted due to Environmental Limitations-(lack of equipment, weather r estraints, etc.). 88-Not Attempted due to Medical Conditions or Safety Concerns. Roll Left to Right (QC): 6 Sit to Lying (QC): 6 Sit to Stand (QC): 4 Chair/Qlc-ey-Viutq Xfer(QC): 4 Car Transfer (QC): 4 Gait Training Does the Patient Walk?: Yes Walk 10 feet (QC): 4 Walk 50 ft with 2 Turns(QC): 4 Walk 150 ft (QC): 88 Walking 10ft/uneven surface-QC: 4 Gait Assistive Device: FWW Wheelchair Training Does the Pt Use a Wheelchair?: No Wheel 50 ft with 2 turns (QC): 9 Wheel 150 ft (QC): 9 Stair Training #of Steps: 1 1 Step (curb) (QC): 4 4 Steps (QC): 88 12 Steps (QC): 88 Balance Picking up an Object (QC): 4 ADL-Treatment Eating (QC): 6 Oral Hygiene (QC): 6 (Pt states already completed this morning.) Shower/Bathe Self (QC): 7 Upper Body Dressing (QC): 5 (s/u) Lower Body Dressing (QC): 4 (SBA and cues for deep breaths in bending position. Pt able to complete all tasks.) On/Off Footwear (QC): 4 (IND, though SBA for cues for breath/ recovery prior to second sock) Toileting Hygiene (QC): 4 (SBA) Assessment/Plan Assessment and Plan Assess & Plan/Chief Complaint Santhosh Lima is a 54 year old male who arrived at [facility] ER 01/24 with SOB, he is an employee of [employer] who was known to be COVID positive from testing the Wednesday before arrival, respiratory failure continued in ER necessitating intubation, soon became hypotensive and bradycardic requiring epi and atropine as well as chest compressions, was brought to ICU. Hypotension stabilized with levophed, IV fluids. Diagnosed with COVID+ ARDS, completed course of remdesivir, decadron. He was sedated and intubated on vent until 02/12 due to difficulties with weaning, he would be agitated and tachypneic with attempted weaning. On 02/04 he had worsening leukocytosis and fever of 101, diagnosed with enterobacter PNA, treated with course of Merrem completed 02/19. 02/12 he had an episode of paroxysmal atrial fibrillation and frequent PVCs, cardiology consulted, treated with amiodarone and mexiletine. He was confused for several days following end of sedation and intubation. Transferred to the Med/Surg 02/19, noted to be very weak, participated in PT. Confusion had resolved by this time. Transferred to IRF 02/27, delayed several days only due to wait for insurance authorization, had been improving well with PT. KULDIP Hernandez Assessment: Critical illness myopathy Hypoxia COVID-19 ARDS AF w/RVR hx OAC for CVA PPx Plan: IRF protocol OAC Monitor AF 02/28/20: Maintain protocol Oxygen Supportive care Incentive Spirometer Strengthened to resolve COVID residual 02/29/20: Maintain Oxygen at night and for Hypoxia Up AD LATOSHA in room Dyspnea on exertion (1) Critical illness myopathy Status: Acute (2) COVID-19 Status: Acute (3) Elevated d-dimer Status: Acute (4) Shock Status: Resolved Resolution Date/Time: 01/27/20 @ 10:41 (5) Elevated LFTs Status: Resolved Resolution Date/Time: 01/28/20 @ 11:25 (6) Acute respiratory failure (7) Cardiac arrest Status: Acute (8) Pneumonia (9) Hypotension (10) ARDS (adult respiratory distress syndrome) Status: Resolved Resolution Date/Time: 02/21/20 @ 15:46 (11) Atrial fibrillation (12) Atrial fibrillation with RVR Status: Resolved Resolution Date/Time: 02/24/20 @ 13:06 ALISA MUÑOZ DO Feb 29, 2020 09:36
--- NOTE | 2020-02-29 11:07 | Physical Therapy Daily Note ---
PT Daily Note-Current Subjective Patient in bed pre tx, agrees to PT, no complaints of pain. Appearance Patient in bed post tx with nurse call, phone, tray, all needs met. Mental Status Patient Orientation: Person, Place, Situation Transfers SCALE: Activities may be completed with or without assistive devices. 2-Tabxghoaop-fkwcass completes the activity by him/herself with no assistance from a helper. 5-Set-up or Clean-up Assistance-helper sets up or cleans up; patient completes activity. [place] assists only prior to or following the activity. 4-Supervision or Touching Assistance-helper provides verbal cues and/or touching/steadying and/or contact guard assistance as patient completes activity. Assistance may be provided throughout the activity or intermittently. 3-Partial/Moderate Assistance-helper does LESS THAN HALF the effort. [place] lifts, holds or supports trunk or limbs, but provides less than half the effort. 2-Substantial/Maximal Assistance-helper does MORE THAN HALF the effort. [place] lifts or holds trunk or limbs and provides more than half the effort. 2-Loysfjpnk-cbmebl does ALL the effort. Patient does none of the effort to complete the activity. Or, the assistance of 2 or more helpers is required for the patient to complete the activity. If activity was not attempted, code reason: 7-Patient Refused. 9-Not Applicable-not attempted and the patient did not perform the activity before the current illness, exacerbation or injury. 10-Not Attempted due to Environmental Limitations-(lack of equipment, weather restraints, etc.). 88-Not Attempted due to Medical Conditions or Safety Concerns. Roll Left & Right (QC): 6 Sit to Lying (QC): 6 Lying to Sitting/Side of Bed(Q: 6 Sit to Stand (QC): 6 Chair/Ydl-os-Adxqp Xfer(QC): 6 Gait Training Distance: 6 Walk 10 feet (QC): 6 Walk 50 ft with 2 Turns(QC): 6 Walk 150 ft (QC): 6 Gait Assistive Device: FWW 200', 150', O2 goes into upper 80's during ambulation, improving steadiness and speed Exercises Standing: Hip Abduction, Heel/toe raises, Marching, Mini squats Standing Reps: 20 Patient needed many rest breaks while on NuStep NuStep Minutes: 15 NuStep Workload: 4 Treatments ambulation, bed mobility and transfers, functional strengthening Assessment Current Status: Fair Progress Discussed with patient and nurse about having patient go to the restroom by himself, they both concur. Used google translate to communicate with patient. PT Short Term Goals Short Term Goals Time Frame: Mar 06, 2020 Roll Left & Right: 6 Sit to lyin Lying to sitting on side of be: 6 Sit to stand: 6 Chair/suv-wk-volmo transfer: 5 Walk 10 feet: 4 Walk 50 feet with two turns: 4 Walk 150 feet: 4 PT Residential Goals Service Cashier Goals PT Residential Goals Time Frame: Mar 20, 2020 Roll Left & Right (QC): 6 Sit to Lying (QC): 6 Lying-Sitting on Side/Bed(QC): 6 Sit to Stand (QC): 6 Chair/Bak-fj-Cksfb Xfer(QC): 6 Toilet Transfer (QC): 6 Car Transfer (QC): 6 Does the Patient Walk: Yes Walk 10 feet (QC): 6 Walk 50ft with 2 Turns (QC): 6 Walk 150 ft (QC): 6 Walking 10ft on Uneven Surface: 6 1 Step (curb) (QC): 6 4 Steps (QC): 6 12 Steps (QC): 6 Picking up an Object (QC): 6 Wheel 50 feet with 2 turns (QC: 9 Wheel 150 feet: 9 PT Plan Problem List Problem List: Activity Tolerance, Functional Strength, Safety, Balance, Gait, Transfer Treatment/Plan Treatment Plan: Continue Plan of Care Treatment Plan: Bed Mobility, Concurrent Therapy, Functional Activity Berta, Functional Strength, Group Therapy, Gait, Safety, Therapeutic Exercise, Transfers Treatment Duration: Mar 20, 2020 Frequency: At least 5 of 7 days/Wk (IRF) Estimated Hrs Per Day: 1.5 hours per day Patient and/or Family Agrees t: Yes Safety Risks/Education Patient Education: Gait Training, Transfer Techniques, Correct Positioning, Safety Issues Teaching Recipient: Patient Teaching Methods: Demonstration, Discussion Response to Teaching: Reinforcement Needed Time/GCodes Time In: 1000 Time Out: 1100 Total Billed Treatment Time: 60 Total Billed Treatment 1 visit EX 30' FA 30' ALEXANDRIA NAQVI PT Feb 29, 2020 11:07
--- NOTE | 2020-02-29 11:21 | NUR ---
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 He was an inpatient ICU and Med Surg for 32 days due to complications from Covid19, including long ventilator dependence and AF with RVR. Other comorbidities are, in part, hypoxemia, pneumonia. Very deconditioned, weak, and short of breath with exertion. [employer]arian [employer] utilized Language Line to communicate with patient and then spoke with nephews Herve and Eric by phone who both speak fluent Uzbek. 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 Herve reported that his employer is going to assist him with application for unemployment or some sort of work disability benefits once discharged from hospital. Patient was residing with his brother Abiel Hooks, he was hospitalized at the same time as patient and 02/05/20. Patient is not aware, family members continue to choose to update patient after he has discharged and returned home so that all family can be together. [employer]arian [employer] did offer the support of hospital staff and Pastoral Care if they wished to talk with patient here but that the family wishes will continue to be respected and honored. PCP: Not confirmed. PHARMACY: Not confirmed. INSURANCE: [facility] DME: Patient was independent prior to illness and had no DME. FWW and Tub Transfer Bench will be needed. An overnight O2 study will be done Wednesday evening, set up home O2 if needed. HHC: Recommended for RN, PT, OT. Patient and family indicate choice agency to be [facility], will initiate referral. BARRIERS TO DISCHARGE: Patient's family members are available to assist him once discharged for intermittent monitor, meals, errands, transportation. Needed DME is obtainable. Patient resides in an apartment building with 8-10 steps to his residence, his nephews are going to speak with the landlord to see about moving him to lower level if something is available. Language barrier is removed by using Language Line as needed. CONTACTS: Herve Guzman, Nephew [address] [place], [place] [id number] [phone]. [phone] Eric Lima, Nephew [address] [place] [address] Patient's sister is Sneha Lima, she is the mother to Stephen. Patient and nephews understand that patient was reviewed this Wednesday02/28/20 during patient care conference and that target discharge is 03/04/20. Addendum: 03/01/20 at 1519 by KEVAN POSADAS SS Confirmed with jam Edgar that patient's address is: [address] [place] [address], [address] [place] [address] Updated Registration so that demographics could be corrected for patient as well as his nephews regarding the multiple phone numbers. [employer]ibrarian [employer] has coordinated that Dr. Goncalves will follow patient for [facility] orders with [facility] until patient gets established with a PCP. Librarian [employer] scheduled an appointment with [facility]HAEL Dahl for 03/08/20, 0920, for post hospital followup; informed them lang interpreter would be needed. Finalize all discharge activities Wednesday.
[2020-02-29 12:42] VITALS: BP 119/63
--- NOTE | 2020-02-29 14:30 | Physical Therapy Daily Note ---
PT Daily Note-Current Subjective Pt in bed upon arrival and agrees to tx Mental Status Patient Orientation: Person, Place, Time, Situation Pt speaks little Gibraltarian, mostly Jordanian. Transfers SCALE: Activities may be completed with or without assistive devices. 6-Mxbfuvuqml-epkjjez completes the activity by him/herself with no assistance from a helper. 5-Set-up or Clean-up Assistance-helper sets up or cleans up; patient completes activity. [place] assists only prior to or following the activity. 4-Supervision or Touching Assistance-helper provides verbal cues and/or touching/steadying and/or contact guard assistance as patient completes activity. Assistance may be provided throughout the activity or intermittently. 3-Partial/Moderate Assistance-helper does LESS THAN HALF the effort. [place] lifts, holds or supports trunk or limbs, but provides less than half the effort. 2-Substantial/Maximal Assistance-helper does MORE THAN HALF the effort. [place] lifts or holds trunk or limbs and provides more than half the effort. 1-Sdohlzblj-hquhtu does ALL the effort. Patient does none of the effort to complete the activity. Or, the assistance of 2 or more helpers is required for the patient to complete the activity. If activity was not attempted, code reason: 7-Patient Refused. 9-Not Applicable-not attempted and the patient did not perform the activity before the current illness, exacerbation or injury. 10-Not Attempted due to Environmental Limitations-(lack of equipment, weather restraints, etc.). 88-Not Attempted due to Medical Conditions or Safety Concerns. Sit to Stand (QC): 5 Gait Training Does the Patient Walk?: Yes Distance: 400 Walk 10 feet (QC): 4 Walk 50 ft with 2 Turns(QC): 4 Walk 150 ft (QC): 4 Gait Persons Needed: 1 Gait Assistive Device: FWW Pt amb around unit approx 400' with two seated rest breaks. Pt amb with slightly kyphotic posture and pushes FWW away from him. Stair Training Stair Training: Handrails/: 1 handrail #of Steps: 4 1 Step (curb) (QC): 4 4 Steps (QC): 4 Stairs: Pattern: Reciprocal Pt ascended stairs reciprocal and descended with a step to patter. Pt required a standing rest break on platform of stairs d/t slight SOB. Exercises Seated Therapy Exercises: Ankle pumps, Long arc quads, Hip flexion, Hip abd/add Seated Reps: 10 Treatments Pt amb from room around unit, and to the gym. Pt ascended/descended stairs with no LOB. Pt amb back to room and performed seated exercises. Pt left in bed with all needs met, call light in hand. Assessment Current Status: Good Progress Pt becomes SOB easily and requires rest breaks. O2 sats taken throughout tx, not dropping lower than 90. PT Short Term Goals Short Term Goals Time Frame: Mar 06, 2020 Roll Left & Right: 6 Sit to lyin Lying to sitting on side of be: 6 Sit to stand: 6 Chair/ufd-an-cqftq transfer: 5 Walk 10 feet: 4 Walk 50 feet with two turns: 4 Walk 150 feet: 4 PT Merchandise Manager Goals Merchandise Manager Goals PT Mcfp Goals Time Frame: Mar 20, 2020 Roll Left & Right (QC): 6 Sit to Lying (QC): 6 Lying-Sitting on Side/Bed(QC): 6 Sit to Stand (QC): 6 Chair/Hld-jz-Qixht Xfer(QC): 6 Toilet Transfer (QC): 6 Car Transfer (QC): 6 Does the Patient Walk: Yes Walk 10 feet (QC): 6 Walk 50ft with 2 Turns (QC): 6 Walk 150 ft (QC): 6 Walking 10ft on Uneven Surface: 6 1 Step (curb) (QC): 6 4 Steps (QC): 6 12 Steps (QC): 6 Picking up an Object (QC): 6 Wheel 50 feet with 2 turns (QC: 9 Wheel 150 feet: 9 PT Plan Treatment/Plan Treatment Plan: Continue Plan of Care Treatment Plan: Bed Mobility, Concurrent Therapy, Functional Activity Berta, Functional Strength, Group Therapy, Gait, Safety, Therapeutic Exercise, Transfers Treatment Duration: Mar 20, 2020 Frequency: At least 5 of 7 days/Wk (IRF) Estimated Hrs Per Day: 1.5 hours per day Patient and/or Family Agrees t: Yes Safety Risks/Education Patient Education: Gait Training, Steps, Correct Positioning, Safety Issues Teaching Recipient: Patient Teaching Methods: Demonstration, Discussion Response to Teaching: Verbalize Understanding, Return Demonstration Time/GCodes Time In: 1400 Time Out: 1430 Total Billed Treatment Time: 30 Total Billed Treatment 1, GT (20m), EX (10m) LUIS ANTONIO OLEARY GAS PRODUCER Feb 29, 2020 14:30
[2020-02-29 18:00] VITALS: BP 131/71
[2020-03-01] MEDS: ALBUTEROL/IPRATROP (COMBIVENT RESPIMAT) 4 GM INHALER IH SCH ×4 (02:03→22:06)
[2020-03-01] MEDS: CATHETER FLUSH 10 ML SYR IV SCH ×3 (04:40→21:35)
[2020-03-01 05:09] VITALS: BP 121/72
--- NOTE | 2020-03-01 06:21 | PM&R Progress Note ---
Subjective HPI/CC On Admission Date Seen by Provider: Mar 01, 2020 Time Seen by Provider: 10:00 Subjective/Events-last exam Oxygen maintained at night and will perform overnight study on Wednesday night No pain reported Med student updated him on his events in hospital Overall feel much better Conferred with RN Reviewed therapy noted Checked meds and labs Review of Systems General: Fatigue, Malaise Neurological: Weakness Objective Exam Vital Signs Vital Signs Date Time Temp Pulse Resp B/P (MAP) Pulse Ox O2 Delivery O2 Flow Rate FiO2 03/02/20 03:12 96 Room Air 03/01/20 16:30 37.0 64 16 117/73 (88) 02/29/20 05:05 2.00 Capillary Refill : Less Than 3 Seconds General Appearance: No Apparent Distress, WD/WN HEENT: PERRL/EOMI, Normal ENT Inspection, Pharynx Normal Neck: Full Range of Motion, Normal Inspection, Non Tender, Supple, Carotid Bruit Respiratory: Chest Non Tender, Lungs Clear, Normal Breath Sounds, No Accessory Muscle Use, No Respiratory Distress, Decreased Breath Sounds Cardiovascular: Regular Rate, Rhythm, No Edema, No Gallop, No JVD, No Murmur, Normal Peripheral Pulses Gastrointestinal: Normal Bowel Sounds, No Organomegaly, No Pulsatile Mass, Non Tender, Soft Back: Normal Inspection, No CVA Tenderness, No Vertebral Tenderness Extremity: Normal Capillary Refill, Normal Inspection, Normal Range of Motion, Non Tender, No Calf Tenderness, No Pedal Edema Neurologic/Psychiatric: Alert, Oriented x3, No Motor/Sensory Deficits, Normal Mood/Affect, manager athletics II-XII Norm as Tested, Abnormal Gait, Motor Weakness (generalized all extremities 4/5) Skin: Normal Color, Warm/Dry Lymphatic: No Adenopathy Results/Procedures Lab Patient resulted labs reviewed. FIM Transfers Therapy Code Descriptions/Definitions Functional [place] Measure: 0=Not Assessed/NA 4=Minimal Assistance 1=Total Assistance 5=Supervision or Setup 2=Maximal Assistance 6=Modified [place] 3=Moderate Assistance 7=Complete IndependenceSCALE: Activities may be completed with or without assistive devices. 5-Apbrdbxygy-jnulhnc completes the activity by him/herself with no assistance from a helper. 5-Set-up or Clean-up Assistance-helper sets up or cleans up; patient completes activity. [place] assists only prior to or following the activity. 4-Supervision or Touching Assistance-helper provides verbal cues and/or touch ing/steadying and/or contact guard assistance as patient completes activity. Assistance may be provided throughout the activity or intermittently. 3-Partial/Moderate Assistance-helper does LESS THAN HALF the effort. [place] lifts, holds or supports trunk or limbs, but provides less than half the effort. 2-Substantial/Maximal Assistance-helper does MORE THAN HALF the effort. [place] lifts or holds trunk or limbs and provides more than half the effort. 0-Sveiyokpo-jyltha does ALL the effort. Patient does none of the effort to complete the activity. Or, the assistance of 2 or more helpers is required for the patient to complete the activity. If activity was not attempted, code reason: 7-Patient Refused. 9-Not Applicable-not attempted and the patient did not perform the activity before the current illness, exacerbation or injury. 10-Not Attempted due to Environmental Limitations-(lack of equipment, weather restraints, etc.). 88-Not Attempted due to Medical Conditions or Safety Concerns. Roll Left to Right (QC): 6 Sit to Lying (QC): 6 Sit to Stand (QC): 5 Chair/Zmt-pt-Tqbea Xfer(QC): 6 Car Transfer (QC): 4 Gait Training Does the Patient Walk?: Yes Distance: 400 Walk 10 feet (QC): 4 Walk 50 ft with 2 Turns(QC): 4 Walk 150 ft (QC): 4 Walking 10ft/uneven surface-QC: 4 Gait Persons Needed: 1 Gait Assistive Device: FWW Wheelchair Training Does the Pt Use a Wheelchair?: No Wheel 50 ft with 2 turns (QC): 9 Wheel 150 ft (QC): 9 Stair Training Stair Training: Handrails/: 1 handrail #of Steps: 4 1 Step (curb) (QC): 4 4 Steps (QC): 4 12 Steps (QC): 88 Stairs: Pattern: Reciprocal Balance Picking up an Object (QC): 4 ADL-Treatment Eating (QC): 6 Oral Hygiene (QC): 6 (Pt states already completed this morning.) Shower/Bathe Self (QC): 7 Upper Body Dressing (QC): 5 (s/u) Lower Body Dressing (QC): 4 (SBA and cues for deep breaths in bending position. Pt able to complete all tasks.) On/Off Footwear (QC): 4 (IND, though SBA for cues for breath/ recovery prior to second sock) Toileting Hygiene (QC): 4 (SBA) Assessment/Plan Assessment and Plan Assess & Plan/Chief Complaint Santhosh Lima is a 54 year old male who arrived at [facility] ER 01/24 with SOB, he is an employee of [employer] who was known to be COVID positive from testing the Wednesday before arrival, respiratory failure continued in ER necessitating intubation, soon became hypotensive and bradycardic requiring epi and atropine as well as chest compressions, was brought to ICU. Hypotension stabilized with levophed, IV fluids. Diagnosed with COVID+ ARDS, completed course of remdesivir, decadron. He was sedated and intubated on vent until 02/12 due to difficulties with weaning, he would be agitated and tachypneic with attempted weaning. On 02/04 he had worsening leukocytosis and fever of 101, diagnosed with enterobacter PNA, treated with course of Merrem completed 02/19. 02/12 he had an episode of paroxysmal atrial fibrillation and frequent PVCs, cardiology consulted, treated with amiodarone and mexiletine. He was confused for several days following end of sedation and intubation. Transferred to the Med/Surg 02/19, noted to be very weak, participated in PT. Confusion had resolved by this time. Transferred to IRF 02/27, delayed several days only due to wait for insurance authorization, had been improving well with PT. Stanton Rendon, MSIV Assessment: Critical illness myopathy Hypoxia COVID-19 ARDS AF w/RVR hx OAC for CVA PPx Plan: IRF protocol OAC Monitor AF 02/28/20: Maintain protocol Oxygen Supportive care Incentive Spirometer Strengthened to resolve COVID residual 02/29/20: Maintain Oxygen at night and for Hypoxia Up AD KALYAN in room Dyspnea on exertion 03/01/20: Home Oxygen at night RT to manage Discharge home on Wednesday Updated patient on his hospital course from Coronavirus (1) Critical illness myopathy Status: Acute (2) COVID-19 Status: Acute (3) Elevated d-dimer Status: Acute (4) Shock Status: Resolved Resolution Date/Time: 01/27/20 @ 10:41 (5) Elevated LFTs Status: Resolved Resolution Date/Time: 01/28/20 @ 11:25 (6) Acute respiratory failure (7) Cardiac arrest Status: Acute (8) Pneumonia (9) Hypotension (10) ARDS (adult respiratory distress syndrome) Status: Resolved Resolution Date/Time: 02/21/20 @ 15:46 (11) Atrial fibrillation (12) Atrial fibrillation with RVR Status: Resolved Resolution Date/Time: 02/24/20 @ 13:06 ALISA MUÑOZ DO Mar 01, 2020 06:21
[2020-03-01] MEDS: MEXILETINE 200 MG (MEXITIL) CAPSULE PO SCH ×2 (07:57→21:19)
[2020-03-01] MEDS: AMIODARONE 200 MG (CORDARONE) TAB PO SCH ×2 (07:58→21:20)
[2020-03-01] MEDS: APIXABAN 5 MG (ELIQUIS) TABLET PO SCH ×2 (07:58→21:20)
[2020-03-01] MEDS: meTOprolol TARTRATE 50 MG (LOPRESSOR) TAB PO SCH ×3 (07:58→21:20)
--- NOTE | 2020-03-01 09:02 | Occupational Ther Daily Note ---
OT Current Status-Daily Note Subjective 1232-1408: Pt seen in bed. States okay this am. Pt agrees to OT tx, though denies ADLs this morning. 0626-8266: Pt seen in bed, speaking with family. Pt agrees to shower. Denying pain. ADL-Treatment Therapy Code Descriptions/Definitions Functional [place] Measure: 0=Not Assessed/NA 4=Minimal Assistance 1=Total Assistance 5=Supervision or Setup 2=Maximal Assistance 6=Modified [place] 3=Moderate Assistance 7=Complete IndependenceSCALE: Activities may be completed with or without assistive devices. 7-Jrzbrlyclq-jneaqjg completes the activity by him/herself with no assistance from a helper. 5-Set-up or Clean-up Assistance-helper sets up or cleans up; patient completes activity. [place] assists only prior to or following the activity. 4-Supervision or Touching Assistance-helper provides verbal cues and/or touching/steadying and/or contact guard assistance as patient completes activity. Assistance may be provided throughout the activity or intermittently. 3-Partial/Moderate Assistance-helper does LESS THAN HALF the effort. [place] lifts, holds or supports trunk or limbs, but provides less than half the effort. 2-Substantial/Maximal Assistance-helper does MORE THAN HALF the effort. [place] lifts or holds trunk or limbs and provides more than half the effort. 9-Uvyebebwy-sckyjo does ALL the effort. Patient does none of the effort to complete the activity. Or, the assistance of 2 or more helpers is required for the patient to complete the activity. If activity was not attempted, code reason: 7-Patient Refused. 9-Not Applicable-not attempted and the patient did not perform the activity before the current illness, exacerbation or injury. 10-Not Attempted due to Environmental Limitations-(lack of equipment, weather restraints, etc.). 88-Not Attempted due to Medical Conditions or Safety Concerns. Eating (QC): 6 Oral Hygiene (QC): 6 Shower/Bathe Self (QC): 5 Upper Body Dressing (QC): 6 Lower Body Dressing (QC): 4 (SBA) On/Off Footwear: 6 Toileting Hygiene (QC): 6 (IND) Toilet Transfer (QC): 6 (IND) Other Treatment [id number]: Pt seen in bed. Pt agrees to OT, denying shower at this time, stating "Later." Pt EOB, states desire for belt. pt's belt donned in stance with good balance and SBA. Pt states belt "mal." Pt's belt too large, pt requests weight. Pt now 83.3 kg, pt notified of kg to lb. Pt states he has lost ~50 lbs since start of admission. Pt's vitals assessed EOB: 93% 02 and 128/75 BP. Pt ambulates to gym. Completes 3 sessions of 2 min minimal resistance arm bike for increased functional UE activity tolerance, 02 assessed each break and ~high 80s to low 90s. Pt stands to complete two 5-min sessions of fine motor tasks, increased shakiness with fatigue, though able to stand full 5 min each time. Pt's 02 remains low 90s. Pt ambulates back to room, stands to complete UE theraband ex with education of purpose of functional standing and UE activity tolerance/ strengthening use. Pt's vitals assessed in stance post-exercise: 95% 02 and 129/85 BP. Pt educated on good 02/ vitals. Pt sits, all needs met, call light in reach, pt agrees to shower later this am. [id number]: Pt seen in bed. Sit to stand SBA, use of walker to shower. Pt co mpletes shower with SUP on this date, no LOB, good safety. pt dresses in shower, returns to sit in recliner. Pt's 02 93% and 124/78 BP post showering. Pt educated on AD for d/c recommendations. pt states he will receive assist from brother at home- SW notified of pt's response and need of DME at d/c. Pt left with all needs met, call light in reach. Education OT Patient Education: Correct positioning, Exercise program, Home exercise program, Modified ADL techniques, Progress toward Goal/Update tx plan, Purpose of tx/functional activities, Safety issues, Use of adapted equipment Teaching Recipient: Patient Teaching Methods: Demonstration, Discussion Response to Teaching: Verbalize Understanding, Return Demonstration OT Short Term Goals Short Term Goals Time Frame: Mar 06, 2020 Oral hygiene: 6 Toileting hygiene: 5 Upper body dressin Lower body dressin Putting on/taking off footwear: 5 OT Tube Former Operator Goals Tube Former Operator Goals Time Frame: Mar 13, 2020 Eating (QC): 6 Oral Hygiene (QC): 6 Toileting Hygiene (QC): 6 Shower/Bathe Self (QC): 6 Upper Body Dressing (QC): 6 Lower Body Dressing (QC): 6 On/Off Footwear (QC): 6 Additional Goals: 1-Demonstrate ADL Tasks, 2-Verbalize Understanding, 3- ImproveStrength/Berta 1=Demonstrate adherence to instructed precautions during ADL tasks. 2=Patient will verbalize/demonstrate understanding of assistive devices/modifications for ADL. 3=Patient will improve strength/tolerance for activity to enable patient to perform ADL's. OT Education/Plan Problem List/Assessment Assessment: Decreased Activ Tolerance Discharge Recommendations Plan/Recommendations: Continue POC Therapy Discharge Recommendati: Intermittent Supervision, Home & Family, Post Acute OT Equpiment Recommendations-D/C: Extended Bath Bench Treatment Plan/Plan of Care Treatment,Training & Education: Yes Patient would benefit from OT for education, treatment and training to promote independence in ADL's, mobility, safety and/or upper extremity function for ADL's. Plan of Care: ADL Retraining, Caregiver Training, Concurrent Therapy, Functional Mobility, Group Exercise/Act as Ind, UE Funct Exercise/Act Treatment Duration: Mar 13, 2020 Frequency: At least 5 of 7 days/Wk (IRF) Estimated Hrs Per Day: Other (13/02 ) Agreement: Yes Rehab Potential: Fair Time/GCodes Start Time: 08:00 (1100) Stop Time: 09:00 (1130) Total Time Billed (hr/min): 90 Billed Treatment Time [id number]: 1, EX 3, FA (60) [id number]: 1, ADL 2 (30) Total: 90 SEEMA HINSON OTR Mar 01, 2020 09:02
[2020-03-01] MEDS: DOCUSATE SODIUM 100 MG (COLACE) CAP PO SCH ×2 (09:35→21:29)
[2020-03-01] MEDS: polyethylene glycoL POWDER 17 GM (MIRALAX) PACK PO SCH ×2 (09:35→21:29)
[2020-03-01] MEDS: SENNA W/DOCUSATE (SENOKOT S) TABLET PO SCH ×2 (09:36→21:29)
--- NOTE | 2020-03-01 11:01 | Physical Therapy Daily Note ---
PT Daily Note-Current Subjective Patient in bed pre tx, agrees to PT, has no complaints of pain. Appearance Patient in bed post tx with nurse call, phone, tray, all needs met. Mental Status Patient Orientation: Person, Unable to Assess Transfers SCALE: Activities may be completed with or without assistive devices. 2-Evzzlwpppd-snayhjv completes the activity by him/herself with no assistance from a helper. 5-Set-up or Clean-up Assistance-helper sets up or cleans up; patient completes activity. [place] assists only prior to or following the activity. 4-Supervision or Touching Assistance-helper provides verbal cues and/or touching/steadying and/or contact guard assistance as patient completes activity. Assistance may be provided throughout the activity or intermittently. 3-Partial/Moderate Assistance-helper does LESS THAN HALF the effort. [place] lifts, holds or supports trunk or limbs, but provides less than half the effort. 2-Substantial/Maximal Assistance-helper does MORE THAN HALF the effort. [place] lifts or holds trunk or limbs and provides more than half the effort. 3-Ckwovcuye-gscwnu does ALL the effort. Patient does none of the effort to complete the activity. Or, the assistance of 2 or more helpers is required for the patient to complete the activity. If activity was not attempted, code reason: 7-Patient Refused. 9-Not Applicable-not attempted and the patient did not perform the activity before the current illness, exacerbation or injury. 10-Not Attempted due to Environmental Limitations-(lack of equipment, weather restraints, etc.). 88-Not Attempted due to Medical Conditions or Safety Concerns. Roll Left & Right (QC): 6 Sit to Lying (QC): 6 Lying to Sitting/Side of Bed(Q: 6 Sit to Stand (QC): 6 Chair/Oot-df-Ubxtm Xfer(QC): 6 Gait Training Distance: 250', 200', 150' Walk 10 feet (QC): 6 Walk 50 ft with 2 Turns(QC): 6 Walk 150 ft (QC): 6 Gait Assistive Device: FWW steady ambulation Exercises sit to stand 3 sets of 10, LAQ alternating for 5 min NuStep Minutes: 15 NuStep Workload: 4 Treatments bed mobility and transfers, ambulation, functional strengthening Assessment Current Status: Fair Progress improving endurance and strength PT Short Term Goals Short Term Goals Time Frame: Mar 06, 2020 Roll Left & Right: 6 Sit to lyin Lying to sitting on side of be: 6 Sit to stand: 6 Chair/llc-gb-gchws transfer: 5 Walk 10 feet: 4 Walk 50 feet with two turns: 4 Walk 150 feet: 4 PT Senior Care Goals Combat Systems Operator Goals PT Senior Care Goals Time Frame: Mar 20, 2020 Roll Left & Right (QC): 6 Sit to Lying (QC): 6 Lying-Sitting on Side/Bed(QC): 6 Sit to Stand (QC): 6 Chair/Myh-un-Agdwb Xfer(QC): 6 Toilet Transfer (QC): 6 Car Transfer (QC): 6 Does the Patient Walk: Yes Walk 10 feet (QC): 6 Walk 50ft with 2 Turns (QC): 6 Walk 150 ft (QC): 6 Walking 10ft on Uneven Surface: 6 1 Step (curb) (QC): 6 4 Steps (QC): 6 12 Steps (QC): 6 Picking up an Object (QC): 6 Wheel 50 feet with 2 turns (QC: 9 Wheel 150 feet: 9 PT Plan Problem List Problem List: Activity Tolerance, Functional Strength, Safety, Balance, Gait, Transfer Treatment/Plan Treatment Plan: Continue Plan of Care Treatment Plan: Bed Mobility, Concurrent Therapy, Functional Activity Berta, Functional Strength, Group Therapy, Gait, Safety, Therapeutic Exercise, Transfers Treatment Duration: Mar 20, 2020 Frequency: At least 5 of 7 days/Wk (IRF) Estimated Hrs Per Day: 1.5 hours per day Patient and/or Family Agrees t: Yes Safety Risks/Education Patient Education: Gait Training, Transfer Techniques, Correct Positioning, Safety Issues Teaching Recipient: Patient Teaching Methods: Demonstration, Discussion Response to Teaching: Reinforcement Needed Time/GCodes Time In: 1000 Time Out: 1100 Total Billed Treatment Time: 60 Total Billed Treatment 1 visit EX 30' FA 30 ALEXANDRIA NAQVI PT Mar 01, 2020 11:01
--- NOTE | 2020-03-01 12:40 | Progress Note ---
NAPOLEON STAUFFER MED STUDENT 03/01/20 1240: Progress Note I spoke with Santhosh Lima today about his medical condition, because he had expressed confusion about what had happened to him at [facility] [place]. Upon asking about what he knew about happened, he reported that he did not remember anything beyond the ambulance, and woke up in the hospital confused. He did not know what had occurred besides he had difficulty breathing. I explained to him what had occurred in the ER and why he was admitted to the ICU, and that he had been treated for respiratory failure due to COVID, and that he had been sedated and on a ventilator, which is responsible for much of his memory loss. At this point he expressed he was not so concerned at this point about what had happened and why he was on the medications he was taking and is currently taking. I asked him two more times in different ways to make sure that he did not want me to explain more, and he made it clear that he was extremely grateful for the care he has received here, but that he was not interested in hearing more. I told him that if at any point he wants to know what had occurred, or why he is taking any of his medications, that we would be happy to explain here. He understood this, and again expressed his gratitude for the care he received here. I spoke to him using the language line ([phone]), the supervisor powder and primer canning was Meme, supervisor powder and primer canning ID [id number]. CHELSEY MUÑOZ DO 03/01/20 5179: Supervisory-Addendum Brief Verification & Attestation Participated in pt care: history, MDM, physical Personally performed: exam, history, MDM, supervision of care Care discussed with: Medical Student Procedures: n/a Results interpretation: Verified all documentation Verification and Attestation of Medical Student E/M Service A medical student performed and documented this service in my presence. I reviewed and verified all information documented by the medical student and made modifications to such information, when appropriate. I personally performed the physical exam and medical decision making. Chelsey Muñoz, Mar 01, 2020,21:59 NAPOLEON STAUFFER MED STUDENT Mar 01, 2020 12:40 CHELSEY MUÑOZ DO Mar 01, 2020 21:59
--- NOTE | 2020-03-01 13:41 | Physical Therapy Daily Note ---
PT Daily Note-Current Subjective Patient agrees to PT. Pain Numeric Pain Scale: 0-No Pain Location: No Pain Reported Mental Status Patient Orientation: Normal For Age Transfers SCALE: Activities may be completed with or without assistive devices. 1-Xslqplpfle-hxqavpz completes the activity by him/herself with no assistance from a helper. 5-Set-up or Clean-up Assistance-helper sets up or cleans up; patient completes activity. [place] assists only prior to or following the activity. 4-Supervision or Touching Assistance-helper provides verbal cues and/or touching/steadying and/or contact guard assistance as patient completes activity. Assistance may be provided throughout the activity or intermittently. 3-Partial/Moderate Assistance-helper does LESS THAN HALF the effort. [place] lifts, holds or supports trunk or limbs, but provides less than half the effort. 2-Substantial/Maximal Assistance-helper does MORE THAN HALF the effort. [place] lifts or holds trunk or limbs and provides more than half the effort. 8-Rsddarcgt-brxbmj does ALL the effort. Patient does none of the effort to com plete the activity. Or, the assistance of 2 or more helpers is required for the patient to complete the activity. If activity was not attempted, code reason: 7-Patient Refused. 9-Not Applicable-not attempted and the patient did not perform the activity before the current illness, exacerbation or injury. 10-Not Attempted due to Environmental Limitations-(lack of equipment, weather restraints, etc.). 88-Not Attempted due to Medical Conditions or Safety Concerns. Roll Left & Right (QC): 6 Sit to Lying (QC): 6 Lying to Sitting/Side of Bed(Q: 6 Sit to Stand (QC): 6 Chair/Csc-ah-Yrpjr Xfer(QC): 6 Car Transfer (QC): 6 Gait Training Does the Patient Walk?: Yes Distance: 250' x 1; 175' x 1 Walk 10 feet (QC): 6 Walk 50 ft with 2 Turns(QC): 6 Walk 150 ft (QC): 6 Gait Assistive Device: FWW steady, functional gait sequence Exercises Standin way Ex=Flex, Abd, Ext Standing Reps: 12 NuStep Minutes: 10 NuStep Workload: 4 (to improve pulmonary function) Assessment Patient tolerated treatment well and returned to bed upon completion of session. Plan dismissal next week. PT Short Term Goals Short Term Goals Time Frame: Mar 06, 2020 Roll Left & Right: 6 Sit to lyin Lying to sitting on side of be: 6 Sit to stand: 6 Chair/aur-xc-gyusx transfer: 5 Walk 10 feet: 4 Walk 50 feet with two turns: 4 Walk 150 feet: 4 PT Air Route Traffic Controller Goals Skilled Nursing Goals PT Air Route Traffic Controller Goals Time Frame: Mar 20, 2020 Roll Left & Right (QC): 6 Sit to Lying (QC): 6 Lying-Sitting on Side/Bed(QC): 6 Sit to Stand (QC): 6 Chair/Yzh-fb-Tgtod Xfer(QC): 6 Toilet Transfer (QC): 6 Car Transfer (QC): 6 Does the Patient Walk: Yes Walk 10 feet (QC): 6 Walk 50ft with 2 Turns (QC): 6 Walk 150 ft (QC): 6 Walking 10ft on Uneven Surface: 6 1 Step (curb) (QC): 6 4 Steps (QC): 6 12 Steps (QC): 6 Picking up an Object (QC): 6 Wheel 50 feet with 2 turns (QC: 9 Wheel 150 feet: 9 PT Plan Treatment/Plan Treatment Plan: Continue Plan of Care Treatment Plan: Bed Mobility, Concurrent Therapy, Functional Activity Berta, Functional Strength, Group Therapy, Gait, Safety, Therapeutic Exercise, Transfers Treatment Duration: Mar 20, 2020 Frequency: At least 5 of 7 days/Wk (IRF) Estimated Hrs Per Day: 1.5 hours per day Patient and/or Family Agrees t: Yes Time/GCodes Time In: 1300 Time Out: 1330 Total Billed Treatment Time: 30 Total Billed Treatment 1 visit FA 13 min EX 17 min MARIAA LEON PT Mar 01, 2020 13:41
[2020-03-01 16:30] VITALS: BP 117/73
[2020-03-02] MEDS: ALBUTEROL/IPRATROP (COMBIVENT RESPIMAT) 4 GM INHALER IH SCH ×4 (03:12→20:10)
[2020-03-02 06:00] VITALS: BP 121/77
[2020-03-02] MEDS: CATHETER FLUSH 10 ML SYR IV SCH ×3 (06:40→21:38)
--- NOTE | 2020-03-02 09:18 | Physical Therapy Daily Note ---
PT Daily Note-Current Subjective Patient in bed pre tx, agrees to PT, no complaints of pain. Appearance Patient in bed post tx with nurse call, phone, tray, all needs met. Mental Status Patient Orientation: Person, Place Transfers SCALE: Activities may be completed with or without assistive devices. 9-Pxysmogews-bnxskmt completes the activity by him/herself with no assistance from a helper. 5-Set-up or Clean-up Assistance-helper sets up or cleans up; patient completes activity. [place] assists only prior to or following the activity. 4-Supervision or Touching Assistance-helper provides verbal cues and/or touching/steadying and/or contact guard assistance as patient completes activity. Assistance may be provided throughout the activity or intermittently. 3-Partial/Moderate Assistance-helper does LESS THAN HALF the effort. [place] lifts, holds or supports trunk or limbs, but provides less than half the effort. 2-Substantial/Maximal Assistance-helper does MORE THAN HALF the effort. [place] lifts or holds trunk or limbs and provides more than half the effort. 0-Lmfaretpt-ugusmx does ALL the effort. Patient does none of the effort to complete the activity. Or, the assistance of 2 or more helpers is required for the patient to complete the activity. If activity was not attempted, code reason: 7-Patient Refused. 9-Not Applicable-not attempted and the patient did not perform the activity before the current illness, exacerbation or injury. 10-Not Attempted due to Environmental Limitations-(lack of equipment, weather restraints, etc.). 88-Not Attempted due to Medical Conditions or Safety Concerns. Roll Left & Right (QC): 6 Sit to Lying (QC): 6 Lying to Sitting/Side of Bed(Q: 6 Sit to Stand (QC): 6 Chair/Qnr-sj-Xaqvs Xfer(QC): 6 Toilet Transfer (QC): 6 Car Transfer (QC): 6 Patient performs bed mobility and transfers with independence, independent with car transfer. Has a tendency to stand and sit without using arms. Gait Training Distance: 250', 150' Walk 10 feet (QC): 6 Walk 50 ft with 2 Turns(QC): 6 Walk 150 ft (QC): 6 Walking 10ft/uneven surface-QC: 6 Gait Assistive Device: FWW Patient can ambulate 250' with a rolling walker with independence (including 50' with at least 2 turns of 90 degrees and 10' over an uneven surface). Patient ambulates slow but steady. Wheelchair Training Does the Pt Use a Wheelchair?: No Stair Training Stair Training: Handrails/: 1 handrail #of Steps: 8 1 Step (curb) (QC): 4 4 Steps (QC): 4 12 Steps (QC): 88 Stairs: Pattern: Step to Patient can go up and down 8 steps using 1 handrail with CGA. Patient puts both hands on one rail and goes up and down sideways. He is very SOB after going up and down 8 steps. Balance Picking up an Object (QC): 4 Treatments bed mobility and transfers, ambulation, stair training Assessment Current Status: Fair Progress Patient gets SOB and fatigued with activity, takes about a minute to recover. Needs frequent rest breaks. PT Short Term Goals Short Term Goals Time Frame: Mar 06, 2020 Roll Left & Right: 6 Sit to lyin Lying to sitting on side of be: 6 Sit to stand: 6 Chair/cyx-dm-wjavo transfer: 5 Walk 10 feet: 4 Walk 50 feet with two turns: 4 Walk 150 feet: 4 PT Detention Goals Upset Operator Goals PT Detention Goals Time Frame: Mar 20, 2020 Roll Left & Right (QC): 6 Sit to Lying (QC): 6 Lying-Sitting on Side/Bed(QC): 6 Sit to Stand (QC): 6 Chair/Udk-ts-Yhmwu Xfer(QC): 6 Toilet Transfer (QC): 6 Car Transfer (QC): 6 Does the Patient Walk: Yes Walk 10 feet (QC): 6 Walk 50ft with 2 Turns (QC): 6 Walk 150 ft (QC): 6 Walking 10ft on Uneven Surface: 6 1 Step (curb) (QC): 6 4 Steps (QC): 6 12 Steps (QC): 6 Picking up an Object (QC): 6 Wheel 50 feet with 2 turns (QC: 9 Wheel 150 feet: 9 PT Plan Problem List Problem List: Activity Tolerance, Functional Strength, Safety, Balance, Gait, Transfer Treatment/Plan Treatment Plan: Continue Plan of Care Treatment Plan: Bed Mobility, Concurrent Therapy, Functional Activity Berta, Functional Strength, Group Therapy, Gait, Safety, Therapeutic Exercise, Transfers Treatment Duration: Mar 20, 2020 Frequency: At least 5 of 7 days/Wk (IRF) Estimated Hrs Per Day: 1.5 hours per day Patient and/or Family Agrees t: Yes Safety Risks/Education Patient Education: Gait Training, Transfer Techniques, Steps, Correct Positioning, Safety Issues Teaching Recipient: Patient Teaching Methods: Demonstration, Discussion Response to Teaching: Reinforcement Needed Time/GCodes Time In: 809 Time Out: 821 Total Billed Treatment Time: 12 Total Billed Treatment 1 visit FA ALEXANDRIA RIDDLE PT Mar 02, 2020 09:18
[2020-03-02] MEDS: polyethylene glycoL POWDER 17 GM (MIRALAX) PACK PO SCH ×2 (09:52→21:37)
[2020-03-02] MEDS: APIXABAN 5 MG (ELIQUIS) TABLET PO SCH ×2 (09:52→21:33)
[2020-03-02] MEDS: DOCUSATE SODIUM 100 MG (COLACE) CAP PO SCH ×2 (09:52→21:38)
[2020-03-02] MEDS: meTOprolol TARTRATE 50 MG (LOPRESSOR) TAB PO SCH ×3 (09:52→21:33)
[2020-03-02] MEDS: AMIODARONE 200 MG (CORDARONE) TAB PO SCH ×2 (09:52→21:33)
[2020-03-02] MEDS: MEXILETINE 200 MG (MEXITIL) CAPSULE PO SCH ×2 (09:52→21:33)
[2020-03-02] MEDS: SENNA W/DOCUSATE (SENOKOT S) TABLET PO SCH ×2 (09:52→21:38)
--- NOTE | 2020-03-02 11:03 | PM&R Progress Note ---
Subjective HPI/CC On Admission Date Seen by Provider: Mar 02, 2020 Time Seen by Provider: 11:00 Subjective/Events-last exam Oxygen maintained at night and will perform overnight study on tomorrow night No pain reported Med student updated him on his events in hospital yesterday No cough Overall feel much better Conferred with RN Reviewed therapy noted Checked meds and labs Review of Systems General: Fatigue, Malaise Pulmonary: Dyspnea Neurological: Weakness Objective Exam Vital Signs Vital Signs Date Time Temp Pulse Resp B/P (MAP) Pulse Ox O2 Delivery O2 Flow Rate FiO2 03/02/20 15:02 94 Room Air 03/02/20 06:00 36.6 65 18 121/77 (92) 02/29/20 05:05 2.00 Capillary Refill : Less Than 3 Seconds General Appearance: No Apparent Distress, WD/WN HEENT: PERRL/EOMI, Normal ENT Inspection, Pharynx Normal Neck: Full Range of Motion, Normal Inspection, Non Tender, Supple, Carotid Bruit Respiratory: Chest Non Tender, Lungs Clear, Normal Breath Sounds, No Accessory Muscle Use, No Respiratory Distress, Decreased Breath Sounds Cardiovascular: Regular Rate, Rhythm, No Edema, No Gallop, No JVD, No Murmur, Normal Peripheral Pulses Gastrointestinal: Normal Bowel Sounds, No Organomegaly, No Pulsatile Mass, Non Tender, Soft Back: Normal Inspection, No CVA Tenderness, No Vertebral Tenderness Extremity: Normal Capillary Refill, Normal Inspection, Normal Range of Motion, Non Tender, No Calf Tenderness, No Pedal Edema Neurologic/Psychiatric: Alert, Oriented x3, No Motor/Sensory Deficits, Normal Mood/Affect, 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 FIM Transfers Therapy Code Descriptions/Definitions Functional [place] Measure: 0=Not Assessed/NA 4=Minimal Assistance 1=Total Assistance 5=Supervision or Setup 2=Maximal Assistance 6=Modified [place] 3=Moderate Assistance 7=Complete IndependenceSCALE: Activities may be completed with or without assistive devices. 8-Oyzgwnunec-sscafdn completes the activity by him/herself with no assistance from a helper. 5-Set-up or Clean-up Assistance-helper sets up or cleans up; patient completes activity. [place] assists only prior to or following the activity. 4-Supervision or Touching Assistance-helper provides verbal cues and/or touching/steadying and/or contact guard assistance as patient completes a ctivity. Assistance may be provided throughout the activity or intermittently. 3-Partial/Moderate Assistance-helper does LESS THAN HALF the effort. [place] lifts, holds or supports trunk or limbs, but provides less than half the effort. 2-Substantial/Maximal Assistance-helper does MORE THAN HALF the effort. [place] lifts or holds trunk or limbs and provides more than half the effort. 5-Uwaukmlkk-iskatg does ALL the effort. Patient does none of the effort to complete the activity. Or, the assistance of 2 or more helpers is required for the patient to complete the activity. If activity was not attempted, code reason: 7-Patient Refused. 9-Not Applicable-not attempted and the patient did not perform the activity before the current illness, exacerbation or injury. 10-Not Attempted due to Environmental Limitations-(lack of equipment, weather restraints, etc.). 88-Not Attempted due to Medical Conditions or Safety Concerns. Roll Left to Right (QC): 6 Sit to Lying (QC): 6 Sit to Stand (QC): 6 Chair/Xbt-yr-Jedqt Xfer(QC): 6 Car Transfer (QC): 6 Gait Training Does the Patient Walk?: Yes Distance: 250', 150' Walk 10 feet (QC): 6 Walk 50 ft with 2 Turns(QC): 6 Walk 150 ft (QC): 6 Walking 10ft/uneven surface-QC: 6 Gait Persons Needed: 1 Gait Assistive Device: FWW Wheelchair Training Does the Pt Use a Wheelchair?: No Wheel 50 ft with 2 turns (QC): 9 Wheel 150 ft (QC): 9 Stair Training Stair Training: Handrails/: 1 handrail #of Steps: 8 1 Step (curb) (QC): 4 4 Steps (QC): 4 12 Steps (QC): 88 Stairs: Pattern: Step to Balance Picking up an Object (QC): 4 ADL-Treatment Eating (QC): 6 Oral Hygiene (QC): 6 Shower/Bathe Self (QC): 5 Upper Body Dressing (QC): 6 Lower Body Dressing (QC): 4 (SBA) On/Off Footwear (QC): 6 Toileting Hygiene (QC): 6 (IND) Toilet Transfer (QC): 6 (IND) Assessment/Plan Assessment and Plan Assess & Plan/Chief Complaint Santhosh Lima is a 54 year old male who arrived at [facility] ER 01/24 with SOB, he is an employee of [employer] who was known to be COVID positive from testing the Wednesday before arrival, respiratory failure continued in ER necessitating intubation, soon became hypotensive and bradycardic requiring epi and atropine as well as chest compressions, was brought to ICU. Hypotension stabilized with levophed, IV fluids. Diagnosed with COVID+ ARDS, completed course of remdesivir, decadron. He was sedated and intubated on vent until 02/12 due to difficulties with weaning, he would be agitated and tachypneic with attempted weaning. On 02/04 he had worsening leukocytosis and fever of 101, diagnosed with enterobacter PNA, treated with course of Merrem completed 02/19. 02/12 he had an episode of paroxysmal atrial fibrillation and frequent PVCs, cardiology consulted, treated with amiodarone and mexiletine. He was confused for several days following end of sedation and intubation. Transferred to the Med/Surg 02/19, noted to be very weak, participated in PT. Confusion had resolved by this time. Transferred to IRF 02/27, delayed several days only due to wait for insurance authorization, had been improving well with PT. 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
[2020-03-02 17:00] VITALS: BP 146/79
[2020-03-02 19:29] VITALS: BP 118/78
[2020-03-03] MEDS: ALBUTEROL/IPRATROP (COMBIVENT RESPIMAT) 4 GM INHALER IH SCH ×4 (02:31→20:44)
[2020-03-03] MEDS: CATHETER FLUSH 10 ML SYR IV SCH ×3 (05:32→20:35)
[2020-03-03 05:33] VITALS: BP 145/80
--- NOTE | 2020-03-03 06:32 | PM&R Progress Note ---
Subjective HPI/CC On Admission Date Seen by Provider: Mar 03, 2020 Time Seen by Provider: 12:30 Subjective/Events-last exam Oxygen maintained at night and will perform overnight study tonight No pain reported BM+ Doesn't want to go home where his brother lived with him since he is No cough Overall feel much better Conferred with RN Reviewed therapy noted Checked meds and labs Review of Systems Pulmonary: Dyspnea Objective Exam Vital Signs Vital Signs Date Time Temp Pulse Resp B/P (MAP) Pulse Ox O2 Delivery O2 Flow Rate FiO2 03/03/20 20:43 94 Room Air 03/03/20 05:33 36.6 69 16 145/80 (101) 02/29/20 05:05 2.00 Capillary Refill : Less Than 3 Seconds General Appearance: No Apparent Distress, WD/WN HEENT: PERRL/EOMI, Normal ENT Inspection, Pharynx Normal Neck: Full Range of Motion, Normal Inspection, Non Tender, Supple, Carotid Bruit Respiratory: Chest Non Tender, Lungs Clear, Normal Breath Sounds, No Accessory Muscle Use, No Respiratory Distress, Decreased Breath Sounds Cardiovascular: Regular Rate, Rhythm, No Edema, No Gallop, No JVD, No Murmur, Normal Peripheral Pulses Gastrointestinal: Normal Bowel Sounds, No Organomegaly, No Pulsatile Mass, Non Tender, Soft Back: Normal Inspection, No CVA Tenderness, No Vertebral Tenderness Extremity: Normal Capillary Refill, Normal Inspection, Normal Range of Motion, Non Tender, No Calf Tenderness, No Pedal Edema Neurologic/Psychiatric: Alert, Oriented x3, No Motor/Sensory Deficits, Normal Mood/Affect, director case management II-XII Norm as Tested, Abnormal Gait, Motor Weakness (generalized all extremities 4/5) Skin: Normal Color, Warm/Dry Lymphatic: No Adenopathy Results/Procedures Lab Patient resulted labs reviewed. FIM Transfers Therapy Code Descriptions/Definitions Functional [place] Measure: 0=Not Assessed/NA 4=Minimal Assistance 1=Total Assistance 5=Supervision or Setup 2=Maximal Assistance 6=Modified [place] 3=Moderate Assistance 7=Complete IndependenceSCALE: Activities may be completed with or without assistive devices. 3-Ixohqmkmor-uwleqoh completes the activity by him/herself with no assistance from a helper. 5-Set-up or Clean-up Assistance-helper sets up or cleans up; patient completes activity. [place] assists only prior to or following the activity. 4-Supervision or Touching Assistance-helper provides verbal cues and/or touching/steadying and/or contact guard assistance as patient completes activity. Assistance may be provided throughout the activity or intermittently. 3-Partial/Moderate Assistance-helper does LESS THAN HALF the effort. [place] lifts, holds or supports trunk or limbs, but provides less than half the effort. 2-Substantial/Maximal Assistance-helper does MORE THAN HALF the effort. [place] lifts or holds trunk or limbs and provides more than half the effort. 2-Ysfhwoofz-xacior does ALL the effort. Patient does none of the effort to complete the activity. Or, the assistance of 2 or more helpers is required for the patient to complete the activity. If activity was not attempted, code reason: 7-Patient Refused. 9-Not Applicable-not attempted and the patient did not perform the activity before the current illness, exacerbation or injury. 10-Not Attempted due to Environmental Limitations-(lack of equipment, weather restraints, etc.). 88-Not Attempted due to Medical Conditions or Safety Concerns. Roll Left to Right (QC): 6 Sit to Lying (QC): 6 Sit to Stand (QC): 6 Chair/Eky-bu-Dcjmd Xfer(QC): 6 Car Transfer (QC): 6 Gait Training Does the Patient Walk?: Yes Distance: 250', 150' Walk 10 feet (QC): 6 Walk 50 ft with 2 Turns(QC): 6 Walk 150 ft (QC): 6 Walking 10ft/uneven surface-QC: 6 Gait Persons Needed: 1 Gait Assistive Device: FWW Wheelchair Training Does the Pt Use a Wheelchair?: No Wheel 50 ft with 2 turns (QC): 9 Wheel 150 ft (QC): 9 Stair Training Stair Training: Handrails/: 1 handrail #of Steps: 8 1 Step (curb) (QC): 4 4 Steps (QC): 4 12 Steps (QC): 88 Stairs: Pattern: Step to Balance Picking up an Object (QC): 4 ADL-Treatment Eating (QC): 6 Oral Hygiene (QC): 6 Shower/Bathe Self (QC): 5 Upper Body Dressing (QC): 6 Lower Body Dressing (QC): 4 (SBA) On/Off Footwear (QC): 6 Toileting Hygiene (QC): 6 (IND) Toilet Transfer (QC): 6 (IND) Assessment/Plan Assessment and Plan Assess & Plan/Chief Complaint Santhosh Lima is a 54 year old male who arrived at [facility] ER 01/24 with SOB, he is an employee of [employer] who was known to be COVID positive from testing the Wednesday before arrival, respiratory failure continued in ER necessitating intubation, soon became hypotensive and bradycardic requiring epi and atropine as well as chest compressions, was brought to ICU. Hypotension stabilized with levophed, IV fluids. Diagnosed with COVID+ ARDS, completed course of remdesivir, decadron. He was sedated and intubated on vent until 02/12 due to difficulties with weaning, he would be agitated and tachypneic with attempted weaning. On 02/04 he had worsening leukocytosis and fever of 101, diagnosed with enterobacter PNA, treated with course of Merrem completed 02/19. 02/12 he had an episode of paroxysmal atrial fibrillation and frequent PVCs, cardiology consulted, treated with amiodarone and mexiletine. He was confused for several days following end of sedation and intubation. Transferred to the Med/Surg , noted to be very weak, participated in PT. Confusion had resolved by this time. Transferred to IRF 02/27, delayed several days only due to wait for insurance authorization, had been improving well with PT. 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 Oxygen overnight study tonight (1) Critical illness myopathy Status: Acute (2) COVID-19 Status: Acute (3) Elevated d-dimer Status: Acute (4) Shock Status: Resolved Resolution Date/Time: 01/27/20 @ 10:41 (5) Elevated LFTs Status: Resolved Resolution Date/Time: 01/28/20 @ 11:25 (6) Acute respiratory failure (7) Cardiac arrest Status: Acute (8) Pneumonia (9) Hypotension (10) ARDS (adult respiratory distress syndrome) Status: Resolved Resolution Date/Time: 02/21/20 @ 15:46 (11) Atrial fibrillation (12) Atrial fibrillation with RVR Status: Resolved Resolution Date/Time: 02/24/20 @ 13:06 ALISA MUÑOZ DO Mar 03, 2020 06:32
[2020-03-03] MEDS: APIXABAN 5 MG (ELIQUIS) TABLET PO SCH ×2 (08:56→20:26)
[2020-03-03] MEDS: meTOprolol TARTRATE 50 MG (LOPRESSOR) TAB PO SCH ×3 (08:56→20:27)
[2020-03-03] MEDS: AMIODARONE 200 MG (CORDARONE) TAB PO SCH ×2 (08:57→20:26)
[2020-03-03] MEDS: DOCUSATE SODIUM 100 MG (COLACE) CAP PO SCH ×2 (08:57→20:27)
[2020-03-03] MEDS: SENNA W/DOCUSATE (SENOKOT S) TABLET PO SCH ×2 (08:57→21:38)
[2020-03-03] MEDS: polyethylene glycoL POWDER 17 GM (MIRALAX) PACK PO SCH ×2 (08:57→20:34)
[2020-03-03] MEDS: MEXILETINE 200 MG (MEXITIL) CAPSULE PO SCH ×2 (08:57→20:26)
[2020-03-03] MEDS ORDERED: AMIO200T4 PO (21:49)
[2020-03-03] MEDS ORDERED: NF-MEXI200 PO (21:49)
[2020-03-03] MEDS ORDERED: METO50TA15 PO (21:49)
[2020-03-03] MEDS ORDERED: APIX5TAB PO (21:49)
--- NOTE | 2020-03-03 21:50 | D/C HH Face to Face Order ---
D/C Face to Face Orders Reconcile Patient Problems Problems Reviewed?: Yes Instructions for Patient Via [facility], Patient Instructions/FollowUp: PCP 1 week Physician to follow Patient: PCP Discharge Diet for Home: No Restrictions Patient Problems: COVID-19 respiratory failure Debility Hypoxia AF new onset Goals for Patient: [place] Patient Data-Allergies,Ht & Wt Patient Allergies: Coded Allergies: No Known Drug Allergies (Unverified , 01/25/20) Home Health Need/Face to Face Date of Face to Face: Mar 03, 2020 Clinical Findings: Generalized weakness and fatigue, Muscle weakness, Shortness of breath I have seen Pt [id number]: Yes Discharged To: Home Diagnosis/Conditions: COVID-19 respiratory failure Debility Hypoxia AF new onset Patient is Homebound due to: Shortness of breath/distress Homebound Status Due to the above stated illness, injury or surgical procedure (medical condition or diagnosis) and associated clinical findings, the patient is homebound because of his/her inability to leave home except with aid of a supportive device and/or person AND leaving the home requires a considerable and taxing effort or is medically contraindicated. Pt req the following assistanc: [facility] Nursing Orders Home Health Services Order: Nursing Services, [place] Helper-Evaluate & Treat, Physical Therapy-Evaluate & Treat Certify Stmt I certify that this patient is under my care and that I, a nurse practitioner or a physician; a elementary assistant teacher working with me, had a face to face encounter that - meets the physician face to face encounter requirements with this patient as dated. ALISA MUÑOZ DO Mar 03, 2020 21:50
[2020-03-04] MEDS: ALBUTEROL/IPRATROP (COMBIVENT RESPIMAT) 4 GM INHALER IH SCH ×3 (02:47→15:52)
--- NOTE | 2020-03-04 05:57 | Discharge Summary ---
Diagnosis/Chief Complaint Date of Admission Feb 27, 2020 at 16:30 Date of Discharge Discharge Date: Mar 03, 2020 Discharge Diagnosis Santhosh Lima is a 54 year old male who arrived at [facility] ER 01/24 with SOB, he is an employee of [employer] who was known to be COVID positive from testing the Wednesday before arrival, respiratory failure continued in ER necessitating intubation, soon became hypotensive and bradycardic requiring epi and atropine as well as chest compressions, was brought to ICU. Hypotension stabilized with levophed, IV fluids. Diagnosed with COVID+ ARDS, completed course of remdesivir, decadron. He was sedated and intubated on vent until 02/12 due to difficulties with weaning, he would be agitated and tachypneic with attempted weaning. On 02/04 he had worsening leukocytosis and fever of 101, diagnosed with enterobacter PNA, treated with course of Merrem completed 02/19. 02/12 he had an episode of paroxysmal atrial fibrillation and frequent PVCs, cardiology consulted, treated with amiodarone and mexiletine. He was confused for several days following end of sedation and intubation. Transferred to the Med/Surg 02/19, noted to be very weak, participated in PT. Confusion had resolved by this time. Transferred to IRF 02/27, delayed several days only due to wait for insurance authorization, had been improving well with PT. KULDIP Hernandez Assessment: Critical illness myopathy Hypoxia COVID-19 ARDS AF w/RVR hx OAC for CVA PPx Plan: IRF protocol OAC Monitor AF 02/28/20: Maintain protocol Oxygen Supportive care Incentive Spirometer Strengthened to resolve COVID residual 02/29/20: Maintain Oxygen at night and for Hypoxia Up AD KALYAN in room Dyspnea on exertion 03/01/20: Home Oxygen at night RT to manage Discharge home on Wednesday Updated patient on his hospital course from Coronavirus 03/02/20: Overnight O2 study Wednesday hotel night auditor dyspnea 03/03/20: DC tomorrow? Oxygen overnight study tonight Discharge Summary Discharge Physical Examination Allergies: Coded Allergies: No Known Drug Allergies (Unverified , 01/25/20) Vitals & I&Os Vital Signs Date Time Temp Pulse Resp B/P (MAP) Pulse Ox O2 Delivery O2 Flow Rate FiO2 03/04/20 17:50 36.8 112 16 135/73 92 Room Air 0.00 General Appearance: Alert, Oriented X3 Respiratory: Clear to Auscultation, Normal Air Movement Hospital Course Was the Problem List Reviewed?: Yes Patient had a brief course while in IRF after a very complex ICU course due to VDRF from COVID-19. Patient was able to be weaned from O2 during his stay here and he was able to gain enough strength to become independent in his ADL's and ambulate with a walker and was able to improve enough he did not require O2. AF w/RVR managed by Dr Green. Overall he was doing well and was ready for DC to home today. Labs (last 24 hrs) Laboratory Tests 02/28/20 05:45: White Blood Count 9.2, Red Blood Count 3.57L, Hemoglobin 10.6L, Hematocrit 33L, Mean Corpuscular Volume 94, Mean Corpuscular Hemoglobin 30, Mean Corpuscular Hem oglobin Concent 32, Red Cell Distribution Width 15.4H, Platelet Count 267, Mean Platelet Volume 10.2, Neutrophils (%) (Auto) 74, Lymphocytes (%) (Auto) 11L, Monocytes (%) (Auto) 7, Eosinophils (%) (Auto) 8, Basophils (%) (Auto) 0, Neutrophils # (Auto) 6.8, Lymphocytes # (Auto) 1.0, Monocytes # (Auto) 0.7, Eosinophils # (Auto) 0.7H, Basophils # (Auto) 0.0, Sodium Level 143, Potassium Level 3.7, Chloride Level 110H, Carbon Dioxide Level 25, Anion Gap 8, Blood Urea Nitrogen 15, Creatinine 0.77, Estimat Glomerular Filtration Rate > 60, BUN/Creatinine Ratio 19, Glucose Level 96, Calcium Level 8.3L, Corrected Calcium 9.1, Total Bilirubin 0.4, Aspartate Amino Transf (AST/SGOT) 16, Alanine Aminotransferase (ALT/SGPT) 30, Alkaline Phosphatase 87, Total Protein 5.5L, Albumin 3.0L 03/04/20 06:07: White Blood Count 8.4, Red Blood Count 3.66L, Hemoglobin 11.2L, Hematocrit 35L, Mean Corpuscular Volume 94, Mean Corpuscular Hemoglobin 31, Mean Corpuscular Hemoglobin Concent 33, Red Cell Distribution Width 15.8H, Platelet Count 222, Mean Platelet Volume 10.5H, Neutrophils (%) (Auto) 64, Lymphocytes (%) (Auto) 16, Monocytes (%) (Auto) 9, Eosinophils (%) (Auto) 11H, Basophils (%) (Auto) 0, Neutrophils # (Auto) 5.4, Lymphocytes # (Auto) 1.3, Monocytes # (Auto) 0.8, Eosinophils # (Auto) 0.9H, Basophils # (Auto) 0.0, Sodium Level 144, Potassium Level 3.9, Chloride Level 111H, Carbon Dioxide Level 25, Anion Gap 8, Blood Urea Nitrogen 16, Creatinine 0.86, Estimat Glomerular Filtration Rate > 60, BUN/Creatinine Ratio 19, Glucose Level 98, Calcium Level 8.4L, Corrected Calcium 9.0, Total Bilirubin 0.3, Aspartate Amino Transf (AST/SGOT) 11, Alanine Aminotransferase (ALT/SGPT) 23, Alkaline Phosphatase 91, Total Protein 5.5L, Albumin 3.2 Pending Labs Laboratory Tests 02/28/20 05:45: White Blood Count 9.2, Red Blood Count 3.57, Hemoglobin 10.6, Hematocrit 33, Mean Corpuscular Volume 94, Mean Corpuscular Hemoglobin 30, Mean Corpuscular Hemoglobin Concent 32, Red Cell Distribution Width 15.4, Platelet Count 267, Mean Platelet Volume 10.2, Neutrophils (%) (Auto) 74, Lymphocytes (%) (Auto) 11, Monocytes (%) (Auto) 7, Eosinophils (%) (Auto) 8, Basophils (%) (Auto) 0, Neutrophils # (Auto) 6.8, Lymphocytes # (Auto) 1.0, Monocytes # (Auto) 0.7, Eosinophils # (Auto) 0.7, Basophils # (Auto) 0.0, Sodium Level 143, Potassium Level 3.7, Chloride Level 110, Carbon Dioxide Level 25, Anion Gap 8, Blood Urea Nitrogen 15, Creatinine 0.77, Estimat Glomerular Filtration Rate > 60, BUN/Creatinine Ratio 19, Glucose Level 96, Calcium Level 8.3, Corrected Calcium 9.1, Total Bilirubin 0.4, Aspartate Amino Transf (AST/SGOT) 16, Alanine Aminotransferase (ALT/SGPT) 30, Alkaline Phosphatase 87, Total Protein 5.5, Albumin 3.0 03/04/20 06:07: White Blood Count 8.4, Red Blood Count 3.66, Hemoglobin 11.2, Hematocrit 35, Mean Corpuscular Volume 94, Mean Corpuscular Hemoglobin 31, Mean Corpuscular Hemoglobin Concent 33, Red Cell Distribution Width 15.8, Platelet Count 222, Mean Platelet Volume 10.5, Neutrophils (%) (Auto) 64, Lymphocytes (%) (Auto) 16, Monocytes (%) (Auto) 9, Eosinophils (%) (Auto) 11, Basophils (%) (Auto) 0, Neutrophils # (Auto) 5.4, Lymphocytes # (Auto) 1.3, Monocytes # (Auto) 0.8, Eosinophils # (Auto) 0.9, Basophils # (Auto) 0.0, Sodium Level 144, Potassium Level 3.9, Chloride Level 111, Carbon Dioxide Level 25, Anion Gap 8, Blood Urea Nitrogen 16, Creatinine 0.86, Estimat Glomerular Filtration Rate > 60, BUN/Creatinine Ratio 19, Glucose Level 98, Calcium Level 8.4, Corrected Calcium 9.0, Total Bilirubin 0.3, Aspartate Amino Transf (AST/SGOT) 11, Alanine Aminotransferase (ALT/SGPT) 23, Alkaline Phosphatase 91, Total Protein 5.5, Albumin 3.2 Discharge Home Medications: Active Scripts Active Metoprolol Tartrate 50 Mg Tablet 50 Mg PO TID Mexiletine HCl 200 Mg Capsule 200 Mg PO BID Amiodarone HCl 200 Mg Tablet 200 Mg PO BID Eliquis (Apixaban) 5 Mg Tablet 5 Mg PO BID Instructions to patient/family Please see electronic discharge instructions given to patient. Diagnosis/Problems Diagnosis/Problems (1) Critical illness myopathy Status: Acute (2) COVID-19 Status: Acute (3) Elevated d-dimer Status: Acute (4) Shock Status: Resolved Resolution Date/Time: 01/27/20 @ 10:41 (5) Elevated LFTs Status: Resolved Resolution Date/Time: 01/28/20 @ 11:25 (6) Acute respiratory failure (7) Cardiac arrest Status: Acute (8) Pneumonia (9) Hypotension (10) ARDS (adult respiratory distress syndrome) Status: Resolved Resolution Date/Time: 02/21/20 @ 15:46 (11) Atrial fibrillation (12) Atrial fibrillation with RVR Status: Resolved Resolution Date/Time: 02/24/20 @ 13:06 Clinical Quality Measures DVT/VTE Risk/Contraindication: Risk Factor Score Per Nursin RFS Level Per Nursing on Admit: 4+=Very High ALISA MUÑOZ DO Mar 04, 2020 05:57
[2020-03-04 06:00] VITALS: BP 106/66
[2020-03-04] MEDS: CATHETER FLUSH 10 ML SYR IV SCH ×2 (06:04→14:00)
[2020-03-04 06:17] LABS: BASOPHILS % (AUTO) 0 % (0-10); EOSINOPHILS # (AUTO) 0.9 10^3/uL (0.0-0.3); EOSINOPHILS % (AUTO) 11 % (0-10); HEMATOCRIT 35 % (40-54); HEMOGLOBIN 11.2 G/DL (13.3-17.7); LYMPHOCYTES # (AUTO) 1.3 X 10^3 (1.0-4.0); LYMPHOCYTES % (AUTO) 16 % (12-44); MEAN CORPUSCULAR HEMOGLOBIN 31 PG (25-34); MEAN CORPUSCULAR HGB CONC 33 G/DL (32-36); MEAN CORPUSCULAR VOLUME 94 FL (80-99); MEAN PLATELET VOLUME 10.5 FL (7.4-10.4); MONOCYTES # (AUTO) 0.8 X 10^3 (0.0-1.0); MONOCYTES % (AUTO) 9 % (0-12); NEUTROPHILS # (AUTO) 5.4 X 10^3 (1.8-7.8); NEUTROPHILS % (AUTO) 64 % (42-75); PLATELET COUNT 222 10^3/uL (130-400); RED CELL DISTRIBUTION WIDTH 15.8 % (10.0-14.5); WHITE BLOOD COUNT 8.4 10^3/uL (4.3-11.0)
[2020-03-04 06:27] LABS: ALBUMIN 3.2 GM/DL (3.2-4.5)
[2020-03-04 06:28] LABS: CHLORIDE 111 MMOL/L (98-107); POTASSIUM 3.9 MMOL/L (3.6-5.0); SODIUM 144 MMOL/L (135-145)
[2020-03-04 06:29] LABS: CALCIUM 8.4 MG/DL (8.5-10.1)
[2020-03-04 06:30] LABS: GLUCOSE 98 MG/DL (70-105); TOTAL PROTEIN 5.5 GM/DL (6.4-8.2)
[2020-03-04 06:31] LABS: CARBON DIOXIDE 25 MMOL/L (21-32)
[2020-03-04 06:32] LABS: BILIRUBIN,TOTAL 0.3 MG/DL (0.1-1.0)
[2020-03-04 06:33] LABS: ALKALINE PHOSPHATASE 91 U/L (40-136)
[2020-03-04 06:34] LABS: CREATININE SERUM 0.86 MG/DL (0.60-1.30); GFR ESTIMATED > 60
[2020-03-04 06:35] LABS: BUN/CREATININE RATIO 19
[2020-03-04 06:37] LABS: ALANINE AMINOTRANSFERASE 23 U/L (0-55)
[2020-03-04 08:59] VITALS: BP 135/73
[2020-03-04] MEDS: meTOprolol TARTRATE 50 MG (LOPRESSOR) TAB PO SCH ×2 (09:36→14:07)
[2020-03-04] MEDS: MEXILETINE 200 MG (MEXITIL) CAPSULE PO SCH (09:36)
[2020-03-04] MEDS: SENNA W/DOCUSATE (SENOKOT S) TABLET PO SCH (09:36)
[2020-03-04] MEDS: polyethylene glycoL POWDER 17 GM (MIRALAX) PACK PO SCH (09:36)
[2020-03-04] MEDS: APIXABAN 5 MG (ELIQUIS) TABLET PO SCH (09:36)
[2020-03-04] MEDS: DOCUSATE SODIUM 100 MG (COLACE) CAP PO SCH (09:36)
[2020-03-04] MEDS: AMIODARONE 200 MG (CORDARONE) TAB PO SCH (09:36)
--- NOTE | 2020-03-04 09:45 | NUR ---
PT IS ON ROOM AIR. PT WOULD DROP DOWN TO 88% FOR A QUICK SECOND AND THEN POP RIGHT BACK UP INTO THE 90'S. PT DID GREAT WITH THE WALK STUDY ON ROOM AIR AND DID NOT COMPLAIN OF SHORTNESS OF BREATH. Addendum: 03/04/20 at 0945 by KYLE GEORGE RT Amended: Links added.
--- NOTE | 2020-03-04 11:21 | Therapy Team Discharge Summary ---
Therapy Discharge Summary Discharge Recommendations Date of Discharge Physical Therapy Patient came to rehab with respiratory failure. Upon evaluation patient performed bed mobility with independence, independent with supine <-> sit, CGA sit <-> stand, CGA for transfers, CGA for car transfer, ambulated 120' with a rolling walker with CGA (including 50' with at least 2 turns of 90 degrees and 10' over an uneven surface), and could go up and down 1 step using a rolling walker with CGA. Patient has been performing bed mobility and transfer training, balance and endurance training, functional strengthening, stair training, gait training, and education. Patient has made good progress and has met all of his group home goals except for stairs. Now, patient performs bed mobility and transfers with independence, independent with car transfer, ambulates 250' with a rolling walker with independence (including 50' with at least 2 turns of 90 degrees and 10' over an uneven surface), can go up and down 8 steps using 1 handrail with CGA, and can cook pickled meat an object from the floor with CGA. Patient is discharging from this facility today and will be discharged from PT at this time. Occupational Therapy Decreased Activ Tolerance PT Tool Supervisor Goals Tool Supervisor Goals PT Tool Supervisor Goals Time Frame: Mar 20, 2020 Roll Left to Right (QC): 6 Sit to Lying (QC): 6 Lying-Sitting on Side/Bed(QC): 6 Sit to Stand (QC): 6 Chair/Ehn-tc-Dvput Xfer(QC): 6 Car Transfer (QC): 6 Does the Patient Walk: Yes Walk 10 feet (QC): 6 Walk 10ft-Uneven Surface(QC): 6 Walk 50ft with 2 Turns (QC): 6 Walk 150 ft (QC): 6 Wheel 50 feet with 2 turns (QC: 9 1 Step (curb) (QC): 6 4 Steps (QC): 6 12 Steps (QC): 6 Picking up an Object (QC): 6 OT Longterm Goals Tool Supervisor Goals Time Frame: Mar 13, 2020 Eating (FIM): 6 Eating (QC): 6 Oral Hygiene (QC): 6 Shower/Bathe Self (QC): 6 Upper Body Dressing (QC): 6 Lower Body Dressing (QC): 6 On/Off Footwear (QC): 6 Toileting Hygiene (QC): 6 Toilet/Commode Transfer (QC): 6 Additional Goals: 1-Demonstrate ADL Tasks, 2-Verbalize Understanding, 3- ImproveStrength/Berta 1=Demonstrate adherence to instructed precautions during ADL tasks. 2=Patient will verbalize/demonstrate understanding of assistive devices/modifications for ADL. 3=Patient will improve strength/tolerance for activity to enable patient to perform ADL's. ALEXANDRIA NAQVI PT Mar 04, 2020 11:21
--- NOTE | 2020-03-04 12:48 | Occupational Ther Daily Note ---
OT Current Status-Daily Note Subjective Pt seen in bed, agrees to OT treat. Pt denies pain, pt to d/c home this afternoon. Mental Status/Objective Patient Orientation: Normal For Age ADL-Treatment Therapy Code Descriptions/Definitions Functional [place] Measure: 0=Not Assessed/NA 4=Minimal Assistance 1=Total Assistance 5=Supervision or Setup 2=Maximal Assistance 6=Modified [place] 3=Moderate Assistance 7=Complete IndependenceSCALE: Activities may be completed with or without assistive devices. 3-Ilstmgoxdv-vdfhvyj completes the activity by him/herself with no assistance fr om a helper. 5-Set-up or Clean-up Assistance-helper sets up or cleans up; patient completes activity. [place] assists only prior to or following the activity. 4-Supervision or Touching Assistance-helper provides verbal cues and/or touching/steadying and/or contact guard assistance as patient completes activity. Assistance may be provided throughout the activity or intermittently. 3-Partial/Moderate Assistance-helper does LESS THAN HALF the effort. [place] lifts, holds or supports trunk or limbs, but provides less than half the effort. 2-Substantial/Maximal Assistance-helper does MORE THAN HALF the effort. [place] lifts or holds trunk or limbs and provides more than half the effort. 8-Dmvodehxy-suvhlq does ALL the effort. Patient does none of the effort to complete the activity. Or, the assistance of 2 or more helpers is required for the patient to complete the activity. If activity was not attempted, code reason: 7-Patient Refused. 9-Not Applicable-not attempted and the patient did not perform the activity before the current illness, exacerbation or injury. 10-Not Attempted due to Environmental Limitations-(lack of equipment, weather restraints, etc.). 88-Not Attempted due to Medical Conditions or Safety Concerns. Eating (QC): 6 Oral Hygiene (QC): 6 Shower/Bathe Self (QC): 6 Upper Body Dressing (QC): 6 Lower Body Dressing (QC): 4 On/Off Footwear: 6 Toileting Hygiene (QC): 6 Toilet Transfer (QC): 6 Other Treatment Pt completes bed mob with IND, utilizes home walker for ambulation to restroom, completing bathroom tasks with IND. SUP for showering for safety, though pt completes with IND. Pt dresses in shower with SUP for LB dressing, all other tasks IND (02 end of shower/ dressing low 90's). Pt educated on use of AD (tub transfer bench) for safe transfer in/ out of shower. Pt completes without use of grab bars, completes tub transfer without use of tub transfer bench with CGA. Pt returns to chair (02 low 80's and requires 2 min recovery break to 90%), all needs met, call light in reach. Education OT Patient Education: Correct positioning, Energy conservation, Modified ADL techniques, Progress toward Goal/Update tx plan, Purpose of tx/functional act ivities, Rehab process, Safety issues, Transfer techniques, Use of adapted equipment Teaching Recipient: Patient Teaching Methods: Demonstration, Discussion Response to Teaching: Verbalize Understanding, Return Demonstration OT Short Term Goals Short Term Goals Time Frame: Mar 06, 2020 Oral hygiene: 6 Toileting hygiene: 5 Upper body dressin Lower body dressin Putting on/taking off footwear: 5 OT Funeral Home Assistant Goals Funeral Home Assistant Goals Time Frame: Mar 13, 2020 Eating (QC): 6 Oral Hygiene (QC): 6 Toileting Hygiene (QC): 6 Shower/Bathe Self (QC): 6 Upper Body Dressing (QC): 6 Lower Body Dressing (QC): 6 On/Off Footwear (QC): 6 Additional Goals: 1-Demonstrate ADL Tasks, 2-Verbalize Understanding, 3-Impro veStrength/Berta 1=Demonstrate adherence to instructed precautions during ADL tasks. 2=Patient will verbalize/demonstrate understanding of assistive devices/modifications for ADL. 3=Patient will improve strength/tolerance for activity to enable patient to perform ADL's. OT Education/Plan Problem List/Assessment Assessment: Decreased Activ Tolerance, Decreased UE Strength, Impaired Funct Balance, Impaired I ADL's, Impaired Self-Care Skills Discharge Recommendations Plan/Recommendations: Continue POC Therapy Discharge Recommendati: Home & Family, Post Acute OT (or PT for additional skilled functional activity tolerance training ) Equpiment Recommendations-D/C: Extended Bath Bench Treatment Plan/Plan of Care Treatment,Training & Education: Yes Patient would benefit from OT for education, treatment and training to promote independence in ADL's, mobility, safety and/or upper extremity function for ADL's. Plan of Care: ADL Retraining, Caregiver Training, Concurrent Therapy, Functional Mobility, Group Exercise/Act as Ind, UE Funct Exercise/Act Treatment Duration: Mar 13, 2020 Frequency: At least 5 of 7 days/Wk (IRF) Estimated Hrs Per Day: Other (13/02 ) Agreement: Yes Rehab Potential: Fair Time/GCodes Start Time: 12:30 Stop Time: 13:00 Total Time Billed (hr/min): 30 Billed Treatment Time 1, ADL, FA (30) SEEMA HINSON OTR Mar 04, 2020 12:48
--- NOTE | 2020-03-04 14:45 | NUR ---
CM/SS DISCHARGE Patient discharged home as planned with monitor/assistance by his extended family. HHC: Finalized with [facility] for RN and PT. Agency confirmed their start date 03/05/20 for services. DME: FWW coordinated through [facility] and delivered to patient room prior to discharge. His overnight O2 study was completed, film writer spoke with RT staff who stated they reviewed results together and together they agreed he was not in need of supplemental oxygen. Rx: Patient had no established pharmacy. [facility] submitted new Rx to [facility] so that our Prescription Assistance Jonel could be utilized if it was needed. It was quite laborious re getting the scripts run through patient's insurance involving multiple communications with Emmy Casillas//Nadya Betancourt and Shakila PharmD/Jann. We did utilize an [employer] 30-day free coupon and were able to get patient's OOP down to about $15. Patient has an establishing PCP visit this Wednesday with [facility] and will be able to access their pharmacy for future Rx if appropriate. [employer] called and sent texts to all known family phone numbers without any response throughout the day. Patient self directed his discharge transport by phone. [facility]ater emphasized on discharge instructions the followup appointment and picking up the Rx same day as discharge. Family provided patient's new address as [address] [place] [address], to RN. Someone apparently left a message overnight in the Care Management office re same but did not respond to film writer's phone (texted from) or voice mails which included film writer's cell. Patient stated that he would not return to his former apartment that he shared with his brother who here while both were hospitalized. Known barriers were addressed during patient's ARU stay. Language Line was utilized during all face to face visits and patient's questions/comments were all addressed to his satisfaction.
--- NOTE | 2020-03-04 16:00 | NUR ---
DC'd PICC Line, catheter intact, pt tolerated well.
[2020-03-04 17:50] VITALS: BP 135/73
[2020-03-04 19:59] VITALS: BP 135/73
--- NOTE | 2020-03-05 14:36 | Therapy Team Discharge Summary ---
Therapy Discharge Summary Discharge Recommendations Date of Discharge Mar 04, 2020 at 17:50 Occupational Therapy Pt admits s/p COVID + and resp failure. Pt admits with ADLs to follow: SBA with showering, LB dressing, toilet transfer, and toilet hygiene. Pt and OT work toward higher fx IND with UE functional activity tolerance, ADL retraining, respiratory/ abdominal breathing exercises, and safety. Pt limited by functional activity tolerance and 02 sats. Pt reaches all LTG other than LB dressing (SUP for cues). Pt d/c's home with family assist with OT recommendations of walker, tub transfer bench and OT or PT HH/ OP services to continue working toward higher functional endurance. Pt to d/c home. Decreased Activ Tolerance, Decreased UE Strength, Impaired Funct Balance, Impaired I ADL's, Impaired Self-Care Skills PT Skilled Nursing Goals Business Office Technology Instructor Goals PT Skilled Nursing Goals Time Frame: Mar 20, 2020 Roll Left to Right (QC): 6 Sit to Lying (QC): 6 Lying-Sitting on Side/Bed(QC): 6 Sit to Stand (QC): 6 Chair/Cny-jo-Orhyf Xfer(QC): 6 Car Transfer (QC): 6 Does the Patient Walk: Yes Walk 10 feet (QC): 6 Walk 10ft-Uneven Surface(QC): 6 Walk 50ft with 2 Turns (QC): 6 Walk 150 ft (QC): 6 Wheel 50 feet with 2 turns (QC: 9 1 Step (curb) (QC): 6 4 Steps (QC): 6 12 Steps (QC): 6 Picking up an Object (QC): 6 OT Skilled Nursing Goals Business Office Technology Instructor Goals Time Frame: Mar 13, 2020 Eating (FIM): 6 Eating (QC): 6 Oral Hygiene (QC): 6 Shower/Bathe Self (QC): 6 Upper Body Dressing (QC): 6 Lower Body Dressing (QC): 6 On/Off Footwear (QC): 6 Toileting Hygiene (QC): 6 Toilet/Commode Transfer (QC): 6 Additional Goals: 1-Demonstrate ADL Tasks, 2-Verbalize Understanding, 3- ImproveStrength/Berta 1=Demonstrate adherence to instructed precautions during ADL tasks. 2=Patient will verbalize/demonstrate understanding of assistive devices/modifications for ADL. 3=Patient will improve strength/tolerance for activity to enable patient to perform ADL's. SEEMA HINSON OTR Mar 05, 2020 14:36
== END 2020-03-04 17:50 | disposition home health service (06) | DRG 93 ==
PROVIDERS: ADMIT Internal Medicine; ATTEND Internal Medicine
DX: G72.81 Critical illness myopathy (principal); R09.02 Hypoxemia; B94.8 Sequelae of other specified infectious and parasitic diseases; I48.0 Paroxysmal atrial fibrillation; Z79.01 Long term (current) use of anticoagulants; Z87.01 Personal history of pneumonia (recurrent); Z87.891 Personal history of nicotine dependence
CPT/HCPCS: 36415; 80053; 85025; 94640; 94664; 94760; 94761

== ENCOUNTER 2020-04-09 09:30 | Outpatient (RCR) | payer BC ==
[~2020-04-09 09:30] MED LIST changes: +AMIO200T6 PO; +APIX5TAB PO; -ATROPINE INJECTION 1 MG/10 ML SYR (ABBOTT) INJ ONE; -EPINEPHrine 0.1 MG/ML 10 ML (HOSPIRA) SYR IJ ONE; +METO50TA15 PO; +NF-MEXI200 PO
== END 2020-07-08 | disposition home or self-care (01) ==
LOC: CARD 09:30
PROVIDERS: ATTEND Internal Medicine Interventional Cardiology
DX: I48.0 Paroxysmal atrial fibrillation (principal); I48.92 Unspecified atrial flutter; I47.1 Supraventricular tachycardia